=== PATIENT | male | born 1945 | race Caucasian/White ===

== ENCOUNTER 2020-01-04 08:01 | Outpatient (REF) | payer MEDICARE, MEDICAID, SELFPAY ==
[2020-01-04 09:13] LABS: Alanine Aminotransferase 32 U/L (0-40); Albumin Level 4.5 g/dL (3.5-5.0); Alkaline Phosphatase 83 U/L (39-117); Anion Gap 12 (12-20); Aspartate Amino Transferase 19 U/L (5-37); Bilirubin Total 0.7 mg/dL (0.0-1.0); Blood Urea Nitrogen 20 mg/dL (9-16); Calcium 9.7 mg/dL (8.4-10.2); Carbon Dioxide 28 mmol/L (22-29); Chloride 101 mmol/L (96-108); Cholesterol 197 mg/dL; Estimated Glomerular Filt Rate > 60; Glucose Fasting 108 mg/dL (60-99); HDL Cholesterol 46 mg/dL; LDL Cholesterol Calculated 119 mg/dl; Potassium 4.4 mmol/l (3.3-5.1); Sodium 137 mmol/L (135-145); Total Protein 7.4 g/dL (6.5-8.0); Triglycerides 162 mg/dL
== END 2020-01-04 08:02 | disposition home or self-care (01) ==
LOC: HO.LAB 08:01
PROVIDERS: PCP Internal Medicine; Visit Provider Internal Medicine
DX: E78.2 Mixed hyperlipidemia (principal)
CPT/HCPCS: 80053; 80061

== ENCOUNTER 2020-02-24 10:36 | Outpatient (REF) | payer MEDICARE, MEDICAID, SELFPAY ==
[2020-02-24 12:08] LABS: Albumin Level 4.6 g/dL (3.5-5.0); Alkaline Phosphatase 71 U/L (39-117); Anion Gap 13 (12-20); Bilirubin Total 0.7 mg/dL (0.0-1.0); Blood Urea Nitrogen 30 mg/dL (9-16); Calcium 9.5 mg/dL (8.4-10.2); Carbon Dioxide 28 mmol/L (22-29); Chloride 101 mmol/L (96-108); Cholesterol 168 mg/dL; Estimated Glomerular Filt Rate > 60; Glucose Fasting 97 mg/dL (60-99); HDL Cholesterol 41 mg/dL; LDL Cholesterol Calculated 97 mg/dl; Potassium 4.2 mmol/l (3.3-5.1); Sodium 138 mmol/L (135-145); Total Protein 7.4 g/dL (6.5-8.0); Triglycerides 154 mg/dL
[2020-02-24 12:28] LABS: Alanine Aminotransferase < 6 U/L (0-40); Aspartate Amino Transferase 14 U/L (5-37)
[2020-02-24 12:33] LABS: B Type Natriuretic Peptide 75 pg/mL (<100)
== END 2020-02-24 10:37 | disposition home or self-care (01) ==
LOC: HO.LAB 10:36
PROVIDERS: PCP Internal Medicine; Visit Provider Internal Medicine
DX: E78.00 Pure hypercholesterolemia, unspecified (principal); R60.0 Localized edema; I10 Essential (primary) hypertension; E78.2 Mixed hyperlipidemia; G20 Parkinson's disease
CPT/HCPCS: 80053; 80061; 83880

== ENCOUNTER → 2020-03-18 14:46 | Outpatient (BNVA) | payer MEDICARE, MEDICAID, SELFPAY | PROVIDERS: PCP Internal Medicine; Visit Provider Urology | DX: Z76.89 Persons encountering health services in other specified circumstances (principal) ==

== ENCOUNTER 2020-06-08 12:18 | Outpatient (REF) | payer MEDICARE, MEDICAID, SELFPAY ==
[2020-06-08 14:26] LABS: PSA,Total (Free>4and<10) < 0.05 ng/mL (0.00-4.00)
== END 2020-06-08 12:19 | disposition home or self-care (01) ==
LOC: HO.LAB 12:18
PROVIDERS: PCP Internal Medicine; Visit Provider Urology
DX: Z12.5 Encounter for screening for malignant neoplasm of prostate (principal); N13.8 Other obstructive and reflux uropathy; N40.1 Benign prostatic hyperplasia with lower urinary tract symptoms
CPT/HCPCS: 36415; 84153

== ENCOUNTER → 2020-06-11 09:23 | Outpatient (BNVA) | payer MEDICARE, MEDICAID, SELFPAY | PROVIDERS: PCP Internal Medicine; Visit Provider Urology | DX: C61 Malignant neoplasm of prostate (principal) | CPT/HCPCS: 51798; 81002; 99212 ==

== ENCOUNTER 2020-07-13 09:09 | Outpatient (REF) | payer MEDICARE, MEDICAID, SELFPAY ==
[2020-07-13 11:17] LABS: Alanine Aminotransferase 35 U/L (0-40); Albumin Level 4.6 g/dL (3.5-5.0); Alkaline Phosphatase 79 U/L (39-117); Anion Gap 14 (12-20); Aspartate Amino Transferase 17 U/L (5-37); Bilirubin Total 0.7 mg/dL (0.0-1.0); Blood Urea Nitrogen 22 mg/dL (9-16); Calcium 9.9 mg/dL (8.4-10.2); Carbon Dioxide 27 mmol/L (22-29); Chloride 103 mmol/L (96-108); Cholesterol 249 mg/dL; Estimated Glomerular Filt Rate > 60; Glucose Fasting 102 mg/dL (60-99); HDL Cholesterol 46 mg/dL; LDL Cholesterol Calculated 165 mg/dl; Potassium 4.1 mmol/L (3.3-5.1); Sodium 140 mmol/L (135-145); Total Protein 7.4 g/dL (6.5-8.0); Triglycerides 193 mg/dL
[2020-07-13 11:45] LABS: Prostate Specific Antigen < 0.05 ng/mL (<0.05-4.0)
== END 2020-07-13 09:10 | disposition home or self-care (01) ==
LOC: HO.LAB 09:09
PROVIDERS: Urology; PCP Internal Medicine; Visit Provider Internal Medicine
DX: Z12.5 Encounter for screening for malignant neoplasm of prostate (principal); C61 Malignant neoplasm of prostate; N13.8 Other obstructive and reflux uropathy; N40.1 Benign prostatic hyperplasia with lower urinary tract symptoms; E78.2 Mixed hyperlipidemia; E78.5 Hyperlipidemia, unspecified
CPT/HCPCS: 36415; 80053; 80061; 84153

== ENCOUNTER 2020-09-21 14:59 | Emergency (ER) | payer MEDICARE, MEDICAID, SELFPAY ==
--- NOTE | ~2020-09-21 | XR_ITS ---
EXAMINATION: XR CHEST CLINICAL INFORMATION: Weakness, cough COMPARISON: Chest x-ray on 02/13/2019 TECHNIQUE: 2 views of the chest were obtained. FINDINGS: The cardiomediastinal silhouette is normal. The lung parenchyma is normal. No areas of consolidation. No pleural effusions. Bones and soft tissues are unremarkable. XR/XR chest 2V IMPRESSION: No acute disease.
--- NOTE | ~2020-09-21 | CT_ITS ---
EXAMINATION: CT HEAD WITHOUT CONTRAST CLINICAL INFORMATION: Leg weakness COMPARISON: None TECHNIQUE: Contiguous axial imaging was performed from the skull base to vertex without intravenous administration of contrast. This CT examination was performed using dose optimization techniques as appropriate, variously including the following: *Automated exposure control *Adjustment of mA and/or kV according to patient size (this includes techniques or standardized protocols for targeted exams where dose is matched to indication/reason for exam; i.e. extremities or head) *Use of iterative reconstruction technique DLP: 729 mGy-cm FINDINGS: There is no evidence of acute intracranial hemorrhage or territorial infarction. No abnormal mass effect or midline shift is seen. Chavez to white matter differentiation is well preserved. No extra-axial fluid collections are identified. Mild cerebral volume loss. There is no abnormal attenuation within the brain parenchyma. The osseous structures and soft tissues are normal. Ethmoid sinus and bilateral maxillary sinus mucosal thickening. The mastoid air cells and remainder of the visualized portions of the paranasal sinuses are well aerated. CT/CT head/brain wo con IMPRESSION: No CT evidence of acute intracranial hemorrhage or edematous territorial infarction.. Further evaluation with CTA or MRI as clinically warranted. Ethmoid and maxillary sinus mucosal thickening.
[2020-09-21 16:23] VITALS: BP 185/94; PULSE 63; RESP 18; TEMP 36.2; O2SAT 97; BMI 35.8
--- NOTE | 2020-09-21 16:51 | ECG_ITS ---
Test Reason : WEAK Blood Pressure : / mmHG Vent. Rate : 071 BPM Atrial Rate : 071 BPM P-R Int : 178 ms QRS Dur : 096 ms QT Int : 414 ms P-R-T Axes : 105 024 038 degrees QTc Int : 449 ms Normal sinus rhythm Normal ECG No significant changes when compared with the previous EKG of 13 feb 2019 Referred By: Radha Byrd Electronically Signed By:VU ORTEGA
--- NOTE | 2020-09-21 16:53 | ED.WEAKNESS ---
HPI - Weakness General Chief complaint: Weakness Stated complaint: Weakness/low blood pressure Time Seen by Provider: 09/21/20 16:46 Source: patient Mode of arrival: ambulatory Limitations: no limitations History of Present Illness HPI Narrative: 75-year-old male with a past medical history of Parkinson's disease, hyperlipidemia, hypertension, GERD here with complaints of episode of weakness with associated diaphoresis which occurred at approximately 10:00 after waking from a nap. The patient tells me he woke up and felt weak all over but expectantly in his lower legs. He felt all over and got sweaty. He says this episode lasted approximately 15-20 minutes and then self-resolved. On my assessment he is now telling me he feels well and would like to be discharged home. He denies any associated chest pain, shortness of breath, dizziness, headache, abdominal pain with this episode. No recent illnesses. He did eat breakfast morning. Related Data Home Medications Medication Instructions Recorded Confirmed carbidopa 25 mg-levodopa 100 1 tab PO DAILY 01/08/20 07/21/20 mg-entacapone 200 mg tablet pramipexole 0.5 mg tablet 0.5 mg PO TID 03/18/20 07/21/20 trihexyphenidyl 2 mg tablet 2 mg PO TID 03/18/20 07/21/20 Previous Rx's Medication Instructions Recorded trazodone 50 mg tablet 50 mg PO BEDTIME PRN #90 tab 02/03/20 omeprazole 20 mg capsule,delayed 20 mg PO DAILY 90 Days #90 cap 03/03/20 release imipramine HCl 10 mg tablet 10 mg PO BID 90 Days #180 tab 06/11/20 atorvastatin 40 mg tablet 40 mg PO DAILY #90 tab 07/21/20 fenofibrate 54 mg tablet 54 mg PO DAILY 90 Days #90 tab 07/21/20 furosemide 20 mg tablet 20 mg PO DAILY 90 Days #90 tab 07/21/20 hydrochlorothiazide 25 mg tablet 25 mg PO DAILY #90 tab 07/21/20 lisinopril 20 mg tablet 20 mg PO DAILY 90 Days #90 tab 07/21/20 oxycodone 5 mg tablet 5 mg PO BID PRN 30 Days #60 tab 09/02/20 Allergies Allergy/AdvReac Type Severity Reaction Status Date / Time pravastatin Allergy Intermediate dry mouth Verified 07/21/20 09:37 Review of Systems Review of Systems: Yes all other systems are reviewed and are negative Constitutional: Constitutional: Reports no additional constitutional complaints, Denies body ache(s), Denies chills, Denies fever(s), Denies headache(s) and Reports weakness Eyes: Eyes: Reports no additional eye complaints and Denies change in vision ENT: Reports system reviewed and no additional complaints, except as documented, Denies dizziness, Denies headache(s), Denies nasal congestion, Denies nasal discharge and Denies neck pain Cardiovascular: Cardiovascular: Reports no additional cardiovascular complaints, Denies chest pain, Denies leg edema and Denies dyspnea Respiratory: Respiratory: Reports no additional respiratory complaints, Denies cough and Denies dyspnea Gastrointestinal: Gastrointestinal: Reports no additional gastrointestinal complaints, Denies abdominal pain, Denies diarrhea, Denies nausea and Denies vomiting Genitourinary: Genitourinary: Denies urinary incontinence Musculoskeletal: Musculoskeletal: Reports no additional musculoskeletal complaints, Denies back pain, Denies arthralgias, Denies joint swelling, Denies neck pain, Denies numbness and Denies tingling Integumentary/Breasts: Skin/Breast: Reports system reviewed and no additional complaints, except as docu and Denies rash Neurologic: Reports system reviewed and no additional complaints, except as documented, Denies Abnormal speech present, Denies dizziness, Denies headache(s), Denies numbness, Denies tingling and Reports weakness PMFSH Past Medical History Attestation statement: The following information was validated with the patient. Source: old records reviewed and nursing notes reviewed Medical History Essential hypertension GERD (gastroesophageal reflux disease) Lumbar degenerative disc disease Mixed hyperlipidemia Parkinsons disease Prostate cancer Urgency incontinence Surgical History History of basal cell carcinoma (BCC) excision History of prostatectomy Family History Family History Father No problems noted. Mother Diabetes Cancer Social History Social History Advance Directives: No Advance Directives Information Provided: No Physical Exam Vital Signs: Vital Signs: Last Vital Signs Temp 97.1 F 07/05/21 16:23 Pulse 63 09/21/20 16:23 Resp 18 09/21/20 16:23 BP 185/94 H 09/21/20 16:23 Pulse Ox 97 09/21/20 16:23 Body Mass Index 35.8 Const: General: cooperative, healthy appearing, comfortable and no acute distress Orientation/consciousness: patient oriented x3 Limitations: no limitations HENMT: Head: Yes normal to inspection Ears: hearing grossly normal bilaterally General nose exam: Normal external nose present Face and sinus: Yes normal facial exam Mouth: Normal oral and palatal mucosa present Throat: Yes posterior oropharynx normal Eyes: General: appearance normal, both eyes and all related structures Pupils: Equal, round and reactive pupils present Neck: Neck: Yes normal visual inspection Chest: Chest palpation & inspection: normal inspection of the chest Resp: Effort & Inspection: normal respiratory effort Auscultation: clear to auscultation bilaterally Cardio: Rate: regular rate Rhythm: regular rhythm Peripheral pulses: Peripheral pulses 2+ throughout GI: Inspection: Yes normal to inspection Palpation (GI): Soft to palpation and nontender Auscultation: normal bowel sounds Back/Spine/Pelvis: Thoracic/Lumbar Spine: thoracic and lumbar spine normal to inspection Skin: General skin exam: no rashes or lesions noted Neuro: General: patient oriented x3, no focal motor deficits and normal sensation to monofilament Cranial nerves: Yes CN's II-XII intact bilaterally, Yes Equal, round and reactive pupils present, Yes Bilaterally intact EOM present, Yes Nystagmus not present, Yes Normal facial strength present, Yes Midline tongue present and Yes Normal gag reflex present Cognition (Neuro): normal cognition Speech: No Abnormal speech present Gait exam (Neuro): Normal gait present Motor exam (neuro): 5/5 motor strength present throughout Sensory Exam: Normal double simultaneous stimulation for sensation Deep tendon reflexes (DTR's): Right patellar reflex intensity grade: 2+ and Left patellar reflex intensity grade: 2+ Extrem: General: Yes normal to inspection Course Course Course Narrative: 75-year-old male here with complaints of episode of generalized weakness with associated diaphoresis approximately 8 hours ago which has since resolved. No other associated symptoms. Exam is benign. Hemodynamically stable with the exception of some mild hypertension. Will check labs, CXR, EKG, CT head 1849- Labs unremarkable. UA negative. Chest x-ray and CT head negative. EKG shows no ischemic changes. Patient is completely asymptomatic since being here in the emergency department. He is feeling well, tolerating p.o. when requesting discharge home. Reviewed worrisome signs and symptoms of when to return to the emergency department. Comfortable discharge home. MDM - Weakness Differential Diagnosis Differential diagnosis: Likely UTI, anemia, hypoglycemia, hypothyroidism, sepsis and dehydration Medical Records Attestation: I reviewed the patient's medical records. Lab Data Attestation: I reviewed the patient's lab results. Result diagrams: 09/21/20 17:11 09/21/20 17:11 Labs: Lab Results 09/21/20 09/21/20 09/21/20 Range/Units 17:08 17:11 17:11 WBC 8.1 (4.8-10.8) X10*3/uL RBC 4.62 (4.60-5.80) X10*6/uL Hgb 14.2 (14.0-18.0) g/dl Hct 41.5 L (42-52) % MCV 89.8 (80-98) fL MCH 30.7 (27.0-33.0) pg MCHC 34.2 (31.0-36.0) g/dl RDW 13.6 (11.0-16.0) % Plt Count 167 (160-400) X10*3/uL MPV 11.3 (9.4-12.4) fL Immature Gran % (Auto) 0.9 H (0.0-0.4) % Neut % (Auto) 59.7 (45-73) % Lymph % (Auto) 25.1 (20-40) % [place] % (Auto) 9.3 (2-11) % Eos % (Auto) 4.8 H (0-4) % Baso % (Auto) 0.2 (0-2) % Lymph # (Auto) 2.0 (1.2-4.9) X10*3/uL [place] # (Auto) 0.8 (0.1-1.2) X10*3/uL Eos # (Auto) 0.4 (0.0-0.4) X10*3/uL Baso # (Auto) 0.0 (0.0-0.2) X10*3/uL Abs Immat Gran (auto) 0.07 H (0.00-0.03) X10*3/uL Absolute Neuts (auto) 4.9 (2.0-8.3) X10*3/uL Absolute Nucleated RBC 0.000 (0.0-0.012) X10*3/uL Nucleated RBC % (auto) 0.0 (0.0-0.2) /100WBC Sodium 137 (135-145) mmol/L Potassium 4.3 (3.3-5.1) mmol/L Chloride 101 (96-108) mmol/L Carbon Dioxide 25 (22-29) mmol/L Anion Gap 15 (12-20) BUN 19 H (9-16) mg/dL Creatinine 1.12 (0.5-1.4) mg/dL Estim Creat Clear Calc 65.2 Estimated GFR > 60 POC Glucose 101 (60-115) mg/dL Random Glucose 107 (60-115) mg/dL Calcium 9.7 (8.4-10.2) mg/dL Magnesium (1.6-2.6) mg/dL Total Bilirubin 0.6 (0.0-1.0) mg/dL Direct Bilirubin 0.2 (0.0-0.5) mg/dL AST 19 (5-37) U/L ALT 15 (0-40) U/L Alkaline Phosphatase 79 (39-117) U/L Troponin I High Sens (<3.5-35.0) ng/L B-Natriuretic Peptide (<100) pg/mL Total Protein 7.7 (6.5-8.0) g/dL Albumin 4.6 (3.5-5.0) g/dL Urine Color Urine Appearance Urine pH (5.0-8.0) Ur Specific [place] (1.005-1.025) Urine Protein (NEG-TRACE) MG/DL Urine Glucose (UA) (NEG) MG/DL Urine Ketones (NEG) MG/DL Urine Blood (NEG) Urine Nitrite (NEG) Ur Leukocyte Esterase (NEG) Urine RBC (0) /HPF Urine WBC (0-4) /HPF Ur Squamous Epith Cells /LPF Urine Bacteria /LPF 09/21/20 09/21/20 09/21/20 Range/Units 17:11 17:11 17:11 WBC (4.8-10.8) X10*3/uL RBC (4.60-5.80) X10*6/uL Hgb (14.0-18.0) g/dl Hct (42-52) % MCV (80-98) fL MCH (27.0-33.0) pg MCHC (31.0-36.0) g/dl RDW (11.0-16.0) % Plt Count (160-400) X10*3/uL MPV (9.4-12.4) fL Immature Gran % (Auto) (0.0-0.4) % Neut % (Auto) (45-73) % Lymph % (Auto) (20-40) % [place] % (Auto) (2-11) % Eos % (Auto) (0-4) % Baso % (Auto) (0-2) % Lymph # (Auto) (1.2-4.9) X10*3/uL [place] # (Auto) (0.1-1.2) X10*3/uL Eos # (Auto) (0.0-0.4) X10*3/uL Baso # (Auto) (0.0-0.2) X10*3/uL Abs Immat Gran (auto) (0.00-0.03) X10*3/uL Absolute Neuts (auto) (2.0-8.3) X10*3/uL Absolute Nucleated RBC (0.0-0.012) X10*3/uL Nucleated RBC % (auto) (0.0-0.2) /100WBC Sodium (135-145) mmol/L Potassium (3.3-5.1) mmol/L Chloride (96-108) mmol/L Carbon Dioxide (22-29) mmol/L Anion Gap (12-20) BUN (9-16) mg/dL Creatinine (0.5-1.4) mg/dL Estim Creat Clear Calc Estimated GFR POC Glucose (60-115) mg/dL Random Glucose (60-115) mg/dL Calcium (8.4-10.2) mg/dL Magnesium 1.9 (1.6-2.6) mg/dL Total Bilirubin (0.0-1.0) mg/dL Direct Bilirubin (0.0-0.5) mg/dL AST (5-37) U/L ALT (0-40) U/L Alkaline Phosphatase (39-117) U/L Troponin I High Sens 3.6 (<3.5-35.0) ng/L B-Natriuretic Peptide 124 H (<100) pg/mL Total Protein (6.5-8.0) g/dL Albumin (3.5-5.0) g/dL Urine Color Urine Appearance Urine pH (5.0-8.0) Ur Specific [place] (1.005-1.025) Urine Protein (NEG-TRACE) MG/DL Urine Glucose (UA) (NEG) MG/DL Urine Ketones (NEG) MG/DL Urine Blood (NEG) Urine Nitrite (NEG) Ur Leukocyte Esterase (NEG) Urine RBC (0) /HPF Urine WBC (0-4) /HPF Ur Squamous Epith Cells /LPF Urine Bacteria /LPF 09/21/20 Range/Units 18:17 WBC (4.8-10.8) X10*3/uL RBC (4.60-5.80) X10*6/uL Hgb (14.0-18.0) g/dl Hct (42-52) % MCV (80-98) fL MCH (27.0-33.0) pg MCHC (31.0-36.0) g/dl RDW (11.0-16.0) % Plt Count (160-400) X10*3/uL MPV (9.4-12.4) fL Immature Gran % (Auto) (0.0-0.4) % Neut % (Auto) (45-73) % Lymph % (Auto) (20-40) % [place] % (Auto) (2-11) % Eos % (Auto) (0-4) % Baso % (Auto) (0-2) % Lymph # (Auto) (1.2-4.9) X10*3/uL [place] # (Auto) (0.1-1.2) X10*3/uL Eos # (Auto) (0.0-0.4) X10*3/uL Baso # (Auto) (0.0-0.2) X10*3/uL Abs Immat Gran (auto) (0.00-0.03) X10*3/uL Absolute Neuts (auto) (2.0-8.3) X10*3/uL Absolute Nucleated RBC (0.0-0.012) X10*3/uL Nucleated RBC % (auto) (0.0-0.2) /100WBC Sodium (135-145) mmol/L Potassium (3.3-5.1) mmol/L Chloride (96-108) mmol/L Carbon Dioxide (22-29) mmol/L Anion Gap (12-20) BUN (9-16) mg/dL Creatinine (0.5-1.4) mg/dL Estim Creat Clear Calc Estimated GFR POC Glucose (60-115) mg/dL Random Glucose (60-115) mg/dL Calcium (8.4-10.2) mg/dL Magnesium (1.6-2.6) mg/dL Total Bilirubin (0.0-1.0) mg/dL Direct Bilirubin (0.0-0.5) mg/dL AST (5-37) U/L ALT (0-40) U/L Alkaline Phosphatase (39-117) U/L Troponin I High Sens (<3.5-35.0) ng/L B-Natriuretic Peptide (<100) pg/mL Total Protein (6.5-8.0) g/dL Albumin (3.5-5.0) g/dL Urine Color YELLOW Urine Appearance CLEAR Urine pH 6.0 (5.0-8.0) Ur Specific [place] <= 1.005 (1.005-1.025) Urine Protein NEG (NEG-TRACE) MG/DL Urine Glucose (UA) NEG (NEG) MG/DL Urine Ketones NEG (NEG) MG/DL Urine Blood TRACE (NEG) Urine Nitrite NEG (NEG) Ur Leukocyte Esterase NEG (NEG) Urine RBC 1-4 (0) /HPF Urine WBC 0-2 (0-4) /HPF Ur Squamous Epith Cells NONE /LPF Urine Bacteria NONE /LPF Imaging Data Chest x-ray: Attestation: I personally reviewed and interpreted this imaging study as follows: Radiologist's impression: EXAMINATION: XR CHEST CLINICAL INFORMATION: Weakness, cough COMPARISON: Chest x-ray on 02/13/2019 TECHNIQUE: 2 views of the chest were obtained. FINDINGS: The cardiomediastinal silhouette is normal. The lung parenchyma is normal. No areas of consolidation. No pleural effusions. Bones and soft tissues are unremarkable. XR/XR chest 2V IMPRESSION: No acute disease. CT scan - head: Attestation: I personally reviewed and interpreted this imaging study as follows: Radiologist's impression: INDINGS: There is no evidence of acute intracranial hemorrhage or territorial infarction. No abnormal mass effect or midline shift is seen. Chavez to white matter differentiation is well preserved. No extra-axial fluid collections are identified. Mild cerebral volume loss. There is no abnormal attenuation within the brain parenchyma. The osseous structures and soft tissues are normal. Ethmoid sinus and bilateral maxillary sinus mucosal thickening. The mastoid air cells and remainder of the visualized portions of the paranasal sinuses are well aerated. CT/CT head/brain wo con IMPRESSION: No CT evidence of acute intracranial hemorrhage or edematous territorial infarction.. Further evaluation with CTA or MRI as clinically warranted. Ethmoid and maxillary sinus mucosal thickening. ECG Data Attestation: I personally reviewed and interpreted this ECG as follows: ECG interpretation date: 09/21/20 ECG interpretation time: 17:02 Interpretation: Normal sinus rhythm with a rate of 71, normal SC, normal QRS Discharge Plan Discharge Clinical Impression: Weakness Patient Disposition: Home, Self-Care Instructions: Weakness (ED) Additional Instructions: your lab work, x-ray, CT scan and EKG all looked normal today eat small frequent meals throughout the day Prescriptions: No Action trazodone 50 mg tablet 50 mg PO BEDTIME PRN (Reason: insomnia) Qty: 90 RF: 1 omeprazole 20 mg capsule,delayed release(DR/EC) 20 mg PO DAILY 90 Days Qty: 90 RF: 3 oxycodone 5 mg tablet 5 mg PO BID PRN (Reason: pain) 30 Days Qty: 60 RF: 0 tusikgubl-pmwxcrjk-bwhywhwsku 25-100-200 mg tablet 1 tab PO DAILY RF: 0 furosemide 20 mg tablet 20 mg PO DAILY 90 Days Qty: 90 RF: 2 lisinopril 20 mg tablet 20 mg PO DAILY 90 Days Qty: 90 RF: 1 hydrochlorothiazide 25 mg tablet 25 mg PO DAILY Qty: 90 RF: 1 atorvastatin 40 mg tablet 40 mg PO DAILY Qty: 90 RF: 2 fenofibrate 54 mg tablet 54 mg PO DAILY 90 Days Qty: 90 RF: 1 pramipexole 0.5 mg tablet 0.5 mg PO TID RF: 0 trihexyphenidyl 2 mg tablet 2 mg PO TID RF: 0 imipramine HCl 10 mg tablet 10 mg PO BID 90 Days Qty: 180 RF: 3 Referrals: Susy Sylvester MD [Primary Care Provider] - 2 days Print Language: Malaysian
[2020-09-21 17:11] LABS: Glucose, Whole Blood 101 mg/dL (60-115)
[2020-09-21 17:17] LABS: MANUAL DIFF FLAG NO
[2020-09-21 17:18] LABS: Basophils Percent Auto 0.2 % (0-2); Eosinophils Absolute Auto 0.4 X10*3/uL (0.0-0.4); Eosinophils Percent Auto 4.8 % (0-4); Hematocrit 41.5 % (42-52); Hemoglobin 14.2 g/dl (14.0-18.0); Imm Gran Abs Auto 0.07 X10*3/uL (0.00-0.03); Imm Gran Pct Auto 0.9 % (0.0-0.4); Lymphocytes Percent Auto 25.1 % (20-40); Mean Corpuscular HGB Conc 34.2 g/dl (31.0-36.0); Mean Corpuscular Hemoglobin 30.7 pg (27.0-33.0); Mean Corpuscular Volume 89.8 fL (80-98); Mean Platelet Volume 11.3 fL (9.4-12.4); Monocytes Absolute Auto 0.8 X10*3/uL (0.1-1.2); Monocytes Percent Auto 9.3 % (2-11); Neutrophils Absolute Auto 4.9 X10*3/uL (2.0-8.3); Neutrophils Percent Auto 59.7 % (45-73); Platelet Count 167 X10*3/uL (160-400); Red Blood Count 4.62 X10*6/uL (4.60-5.80); Red Cell Distribution Width 13.6 % (11.0-16.0); White Blood Count 8.1 X10*3/uL (4.8-10.8)
[2020-09-21 17:39] LABS: Magnesium 1.9 mg/dL (1.6-2.6)
[2020-09-21 17:41] LABS: Alanine Aminotransferase 15 U/L (0-40); Albumin Level 4.6 g/dL (3.5-5.0); Alkaline Phosphatase 79 U/L (39-117); Anion Gap 15 (12-20); Aspartate Amino Transferase 19 U/L (5-37); Bilirubin Direct 0.2 mg/dL (0.0-0.5); Bilirubin Total 0.6 mg/dL (0.0-1.0); Blood Urea Nitrogen 19 mg/dL (9-16); Calcium 9.7 mg/dL (8.4-10.2); Carbon Dioxide 25 mmol/L (22-29); Chloride 101 mmol/L (96-108); Creatinine Clr Calc Pharmacy 65.2; Estimated Glomerular Filt Rate > 60; Glucose Random 107 mg/dL (60-115); Potassium 4.3 mmol/L (3.3-5.1); Sodium 137 mmol/L (135-145); Total Protein 7.7 g/dL (6.5-8.0)
[2020-09-21 17:44] LABS: B Type Natriuretic Peptide 124 pg/mL (<100); Troponin-I High Sensitivity 3.6 ng/L (<3.5-35.0)
[2020-09-21 18:23] LABS: Glucose Urine UA NEG (NEG); Leukocyte Esterase Urine NEG (NEG); Nitrite Urine NEG (NEG); Specific Gravity - Urine <= 1.005 (1.005-1.025); Urine Blood TRACE (NEG); Urine Ketones NEG (NEG); Urine Protein NEG (NEG-TRACE)
[2020-09-21 18:29] LABS: Appearance Urine CLEAR; Color Urine YELLOW
[2020-09-21 18:35] LABS: WBC Urine 0-2 /HPF (0-4)
--- NOTE | 2020-09-21 19:05 | PC.NURSE ---
pt feels ready for discharge, vitals stable denies pain or dizziness. pt alert and oriented . steady gait.
== END 2020-09-21 19:07 | disposition home or self-care (01) ==
PROVIDERS: Nurse Practitioner Family; Emergency Provider Emergency Medicine; PCP Internal Medicine
DX: R53.1 Weakness (principal); I10 Essential (primary) hypertension; G20 Parkinson's disease; Z79.899 Other long term (current) drug therapy
CPT/HCPCS: 36415; 70450; 71046; 80048; 80076; 81001; 82947; 83735; 83880; 84484; 85025; 93005; 99284

== ENCOUNTER 2020-11-20 09:15 | Outpatient (REF) | payer MEDICARE, MEDICAID, SELFPAY ==
[2020-11-20 09:58] LABS: MANUAL DIFF FLAG NO
[2020-11-20 10:06] LABS: Basophils Percent Auto 0.3 % (0-2); Eosinophils Absolute Auto 0.5 X10*3/uL (0.0-0.4); Eosinophils Percent Auto 7.8 % (0-4); Hematocrit 39.1 % (42-52); Hemoglobin 13.4 g/dl (14.0-18.0); Imm Gran Abs Auto 0.05 X10*3/uL (0.00-0.03); Imm Gran Pct Auto 0.8 % (0.0-0.4); Lymphocytes Absolute Auto 1.7 X10*3/uL (1.2-4.9); Lymphocytes Percent Auto 28.1 % (20-40); Mean Corpuscular HGB Conc 34.3 g/dl (31.0-36.0); Mean Corpuscular Hemoglobin 31.4 pg (27.0-33.0); Mean Corpuscular Volume 91.6 fL (80-98); Mean Platelet Volume 12.3 fL (9.4-12.4); Monocytes Absolute Auto 0.6 X10*3/uL (0.1-1.2); Monocytes Percent Auto 9.1 % (2-11); Neutrophils Absolute Auto 3.2 X10*3/uL (2.0-8.3); Neutrophils Percent Auto 53.9 % (45-73); Platelet Count 165 X10*3/uL (160-400); Red Blood Count 4.27 X10*6/uL (4.60-5.80); Red Cell Distribution Width 13.5 % (11.0-16.0)
[2020-11-20 10:34] LABS: Alanine Aminotransferase 8 U/L (0-40); Albumin Level 4.6 g/dL (3.5-5.0); Alkaline Phosphatase 81 U/L (39-117); Anion Gap 14 (12-20); Aspartate Amino Transferase 22 U/L (5-37); Bilirubin Total 0.4 mg/dL (0.0-1.0); Blood Urea Nitrogen 27 mg/dL (9-16); Calcium 9.9 mg/dL (8.4-10.2); Carbon Dioxide 27 mmol/L (22-29); Chloride 101 mmol/L (96-108); Cholesterol 181 mg/dL; Estimated Glomerular Filt Rate 47; Glucose Fasting 112 mg/dL (60-99); HDL Cholesterol 37 mg/dL; LDL Cholesterol Calculated 109 mg/dl; Potassium 4.5 mmol/L (3.3-5.1); Sodium 137 mmol/L (135-145); Total Protein 7.4 g/dL (6.5-8.0); Triglycerides 178 mg/dL
[2020-11-26 19:46] LABS: Vitamin D 25-OH, D2 <4 ng/mL; Vitamin D 25-OH, D3 38 ng/mL; Vitamin D 25-OH, Total 38 ng/mL (30-100)
== END 2020-11-20 09:16 | disposition home or self-care (01) ==
LOC: HO.LAB 09:15
PROVIDERS: PCP Internal Medicine; Visit Provider Internal Medicine
DX: E78.5 Hyperlipidemia, unspecified (principal); E55.9 Vitamin D deficiency, unspecified; I10 Essential (primary) hypertension; D64.9 Anemia, unspecified
CPT/HCPCS: 36415; 80053; 80061; 82306; 85025

== ENCOUNTER → 2020-12-29 08:27 | Outpatient (REF) | payer MEDICARE, MEDICAID, SELFPAY ==
--- NOTE | 2020-12-29 08:32 | CA_ITS ---
Transthoracic Echocardiogram Patient (Last, First, Middle): Onru Yarbrough, Gender: Male Date of : 1945 Age: 75 Procedure Date: 12/29/2020 Procedure Type: Transthoracic Echocardiogram Location: OP Height: 172.72 cm Weight: 108.86 kg BSA: 2.21 m2 Heart Rate: bpm BP: 118 / 79 mmHg Bone Char Kiln Tender: SARAH Referring MD: Susy Harrington MD [employer] Specialist: Hugo Davison MD Symptoms: R60.0 - Localized edema Study Quality: Fair ECG Rhythm: Sinus Conclusions: - 1. Normal LV systolic and diastolic function 2. Normal cardiac valvular Doppler 3. Mildly dilated ascending aorta with mild atherosclerotic changes 4. No gross pericardial effusion 5. Normal RV systolic pressure Findings Left Ventricle Normal left ventricular size, thickness, and systolic function. The visually estimated ejection fraction is between 60-65%. Spectral Doppler is indicative of a normal filling pattern. Right Ventricle Normal right ventricular cavity size and systolic function. Atria Both atria are normal in size. There is no evidence of interatrial shunt. Aortic Valve The aortic valve structure and function is likely normal. There is no aortic valve stenosis. There is no aortic valve regurgitation. Mitral Valve There is mild anterior and posterior mitral leaflet thickening. There is trace mitral valve regurgitation. There is no mitral valve stenosis. Pulmonic Valve The pulmonic valve was not well visualized. Tricuspid Valve Likely normal tricuspid valve structure and function. There is trace tricuspid valve regurgitation. The right ventricular systolic pressure is normal. The right ventricular systolic pressure is 21 mmHg. Normal right atrial pressure. There is no evidence of pulmonary hypertension. Great Vessels The pulmonary artery was not well visualized. There is mild dilatation of the ascending aorta measuring 3.90 cm. Small plaque is seen in the ascending aorta. Venous The inferior vena cava is normal in size and collapses greater than 50% with inspiration. Pericardium/Pleural There is no evidence of pericardial effusion. Prior Study Comparison No significant change compared to prior study dated: 07/06/2017. Measurements 2D Linear Measurements IVSd: 0.94 0.6-0.9/0.6-1.0 cm LVIDd: 5.30 3.9-5.3/4.2-5.9 cm LVIDd Index: 2.40 2.4-3.2/2.2-3.1 cm/m2 LVIDs: 3.35 2.0-3.6 cm LVPWd: 1.03 0.7-1.1 cm Ao Root: 3.20 2.1-3.5 cm LA Diam: 2.50 2.7-3.8/3.0-4.0 cm LAIDs Index: 1.13 1.5-2.3 cm/m2 LV Mass: 244.94 67-162/88-224 g LV Mass Index: 110.83 43-95/49-115 g/m2 LVOT Diam: 2.00 3.0+(-)1.3 cm 2D Systolic Function EF 4C: 56.10 >55% EF 2C: 66.60 >55% EF BiP: 62.10 >55% Mitral Valve MV Pk E: 0.67 MV PK A: 0.46 MV Decel Time: 147.00 E/A: 1.50 E'Lateral: 8.38 E'Medial: 5.87 E/E' Med: 11.50 E/E' Lat: 8.00 PHT: 43.00 MVA PHT: 5.12 Decel Otoe: 4.59 Aortic Valve AoV Pk Donnie: 1.44 AoV Pk Grad: 8.00 LVOT LVOT Pk Donnie: 0.99 LVOT Mn Donnie: 0.59 LVOT VTI: 0.19 LVOT Pk Grad: 4.00 LVOT Mn Grad: 2.00 LVOT Diam: 2.00 LVOT Area: 3.14 Diastolic Function MV Pk E: 0.67 MV Pk A: 0.46 E/A: 1.50 E'Medial: 5.87 E/E' Med: 11.50 E' Laterial: 8.38 E/E' Lat: 8.00 Right Ventricle TAPSE (mm): 1.94 Tricuspid Valve TR Pk Donnie: 2.13 TR Pk Grad: 18.00 RA Press: 3.00 RVSP: 21.00 Great Vessels Aorta Ao Root-2D: 3.20 2.0-3.7 cm Ao Asc: 3.90 2.1-3.4 cm Updated in Other Vendor System with Status of Final Hugo Davison MD electronically signed on 12/31/2020 8:57:51 AM with status of Final
== END ==
LOC: HO.CARD 08:27
PROVIDERS: Visit Provider Internal Medicine
DX: R60.0 Localized edema (principal)
CPT/HCPCS: 93306

== ENCOUNTER 2021-03-23 07:28 | Outpatient (REF) | payer MEDICARE, MEDICAID, SELFPAY ==
[2021-03-23 08:35] LABS: Alanine Aminotransferase 31 U/L (0-40); Albumin Level 4.5 g/dL (3.5-5.0); Alkaline Phosphatase 75 U/L (39-117); Anion Gap 12 (12-20); Aspartate Amino Transferase 17 U/L (5-37); Bilirubin Total 0.5 mg/dL (0.0-1.0); Blood Urea Nitrogen 30 mg/dL (9-16); Calcium 9.9 mg/dL (8.4-10.2); Carbon Dioxide 27 mmol/L (22-29); Chloride 107 mmol/L (96-108); Estimated Glomerular Filt Rate 59; Glucose Random 121 mg/dL (60-115); Potassium 4.3 mmol/L (3.3-5.1); Sodium 142 mmol/L (135-145); Total Protein 7.4 g/dL (6.5-8.0)
[2021-03-23 08:58] LABS: TSH reflex Free T4 2.92 uIU/mL (0.32-4.0)
== END 2021-03-23 07:29 | disposition home or self-care (01) ==
LOC: HO.LAB 07:28
PROVIDERS: Absent Provider Internal Medicine; PCP Internal Medicine; Visit Provider Nurse Practitioner Family
DX: R60.0 Localized edema (principal)
CPT/HCPCS: 36415; 80053; 84443

== ENCOUNTER 2021-05-18 14:55 | Outpatient (REF) | payer MEDICARE, MEDICAID, SELFPAY ==
[2021-05-18 16:00] LABS: Estimated Average Glucose 137 mg/dL; Hemoglobin A1c % 6.4 %
[2021-05-18 16:35] LABS: Prostate Specific Antigen < 0.05 ng/mL (<0.05-4.0)
== END 2021-05-18 14:56 | disposition home or self-care (01) ==
LOC: HO.LAB 14:55
PROVIDERS: Nurse Practitioner Family; PCP Internal Medicine; Visit Provider Urology
DX: Z13.1 Encounter for screening for diabetes mellitus (principal); Z12.5 Encounter for screening for malignant neoplasm of prostate; C61 Malignant neoplasm of prostate
CPT/HCPCS: 36415; 83036; 84153

== ENCOUNTER → 2021-06-07 08:21 | Outpatient (BNVA) | payer MEDICARE, MEDICAID, SELFPAY | PROVIDERS: PCP Internal Medicine; Visit Provider Anesthesiology | DX: M54.50 Low back pain, unspecified (principal); M47.816 Spondylosis without myelopathy or radiculopathy, lumbar region; M46.1 Sacroiliitis, not elsewhere classified; M53.3 Sacrococcygeal disorders, not elsewhere classified; G89.4 Chronic pain syndrome | CPT/HCPCS: 99202 ==

== ENCOUNTER → 2021-06-15 15:28 | Outpatient (BNVA) | payer MEDICARE, MEDICAID, SELFPAY | PROVIDERS: PCP Internal Medicine; Visit Provider Urology | DX: C61 Malignant neoplasm of prostate (principal); N32.81 Overactive bladder | CPT/HCPCS: 99212 ==

== ENCOUNTER 2021-06-29 06:15 | Outpatient (REF) | payer MEDICARE, MEDICAID, SELFPAY ==
--- NOTE | ~2021-06-29 | FL_ITS ---
EXAMINATION: XR FLUOROSCOPY WITH IMAGES CLINICAL INFORMATION: M46.1 - Sacroiliitis, not elsewhere classified. COMPARISON: None. TECHNIQUE: Fluoroscopy performed by Dr. Nile Askew. Fluoroscopy time: 0.1 minutes DAP: 2.96 Gycm2 Images: 1 FINDINGS: Spinal needle overlies the lower left SI joint. There is contrast in the periarticular soft tissues with probable early intra-articular contrast. No vasculature communication appreciated. FL/FL guidance in treatment room IMPRESSION: Fluoroscopy for pain management procedure.
== END 2021-06-29 06:16 | disposition home or self-care (01) ==
LOC: HO.RADIR 06:15
PROVIDERS: Visit Provider Anesthesiology
DX: M46.1 Sacroiliitis, not elsewhere classified (principal); M54.50 Low back pain, unspecified; M47.816 Spondylosis without myelopathy or radiculopathy, lumbar region; M53.3 Sacrococcygeal disorders, not elsewhere classified; G89.4 Chronic pain syndrome
CPT/HCPCS: 27096; Q9967

== ENCOUNTER → 2021-07-07 16:16 | Outpatient (BNVA) | payer MEDICARE, MEDICAID, SELFPAY | PROVIDERS: PCP Internal Medicine; Visit Provider Anesthesiology | DX: M54.50 Low back pain, unspecified (principal); M47.816 Spondylosis without myelopathy or radiculopathy, lumbar region; M46.1 Sacroiliitis, not elsewhere classified; M53.3 Sacrococcygeal disorders, not elsewhere classified; G89.4 Chronic pain syndrome | CPT/HCPCS: Q3014 ==

== ENCOUNTER 2021-07-31 07:48 | Outpatient (REF) | payer MEDICARE, MEDICAID, SELFPAY ==
--- NOTE | ~2021-07-31 | XR_ITS ---
EXAMINATION: XR PELVIS CLINICAL INFORMATION: Sacrococcygeal disorder. COMPARISON: None TECHNIQUE: Single frontal view of the pelvis obtained. FINDINGS: There is no radiographic evidence of acute fracture or dislocation. No osteolytic or osteoblastic lesions. 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 Adjacent pubic rami are intact. Surrounding soft tissue is unremarkable. 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
--- NOTE | ~2021-07-31 | XR_ITS ---
EXAMINATION: XR LUMBAR SPINE CLINICAL INFORMATION: Reason for Exam M47.816 - Spondylosis without myelopathy or radiculopathy... COMPARISON: None TECHNIQUE: Frontal lateral and coned-down L5-S1 frontal lateral, right and left obliques. FINDINGS: Five dln-rbz-ebashot lumbar vertebrae were identified maintaining normal height and alignments. Narrowing of intervertebral disc spaces suggest underlying degenerative disc disease. Paravertebral soft tissues are unremarkable. There are radiolucencies, most likely superimposed bowel gas.. No radiographic evidence of osteolytic or osteoblastic lesions. XR/XR lumbar spine 4V min IMPRESSION: Mild narrowing of disc height and developed anterior osteophytes especially at L2-L3 suggests underlying degenerative disc disease. Bone alignments are satisfactory. No fracture.
== END 2021-07-31 07:49 | disposition home or self-care (01) ==
LOC: HO.XRAY 07:48
PROVIDERS: PCP Internal Medicine; Visit Provider Anesthesiology
DX: M47.816 Spondylosis without myelopathy or radiculopathy, lumbar region (principal); M53.3 Sacrococcygeal disorders, not elsewhere classified
CPT/HCPCS: 72110; 72170

== ENCOUNTER 2021-08-04 07:05 | Outpatient (RCR) | payer MEDICARE, MEDICAID, SELFPAY ==
[2021-08-04 11:19] VITALS: BP 149/74; PULSE 68; O2SAT 98
--- NOTE | 2021-08-04 12:03 | MHC.PT.EP ---
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 Pt RESIDES ALONE AND HAS VEGETABLE THINNER ASSIST 37.5 HRS/ WK. HE ENJOYS WATCHING TV AND GOING FOR SHORT WALKS- INTERMITTENTLY AMB W A CANE(PRESENTED TODAY W/O AD). Pt HAS DECR ROM IN DEJUAN ANKLES, KNEES, HIPS AND TRUNK-DECR POSTURAL AWARENESS/ CREATING INCR TISSUE TENSION IN HIS POSTERIOR CHAIN. HE HAS WEAKNESS IN HIS LEs AND DEMON DECR TOLERANCE TO STATIC STANDING-HIS TUG TEST WAS 24 SECONDS (NO AD). FUNCTIONALLY, Pt HAS DECR GAIT ALEXANDER- HE REQ SEATED THER RESTS W GROCERY SHOPPING, DIFFIC W STANDING/ BENDING/LIFTING, AND DONNING/ DOFFING FOOTWEAR. 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 Frequency and Duration: The patient will be seen 2 x WK x 8 WKS Short Term Goals: *Pt AND HIS VEGETABLE THINNER DEMON IMPROVED POSITIONING AND MECHANICSIN BED/ SITTING, TRANSFERS IN 3 WKS *IMPROVE AROM IN DEJUAN ANKLES , HIPS, LEs IN 2 WKS *Pt'S LBP DECR TO 2-3/10 IN 3 WKS Air Press Operator Goals: *Pt CARRIEON IMPROVED GAIT MECHANICS FOR FITNESS WALKING ON LEVEL GROUND AND STAIR MGMT IN 8 WKS *Pt AND HIS VEGETABLE THINNER DEMON INDEP W PROGRESSIVE HEP IN 8 WKS Treatment Plan: Modalities to reduce pain, spasms and effusion. Manual therapy to restore motion and function. Therapeutic exercise to improve strength and flexibility. Neuromuscular re-education for posture and balance. Therapeutic activities to return to functional activities of daily living. Electronically signed by: Ingris Bev,PT Please sign and return to therapist. Thank you for your referral.
== END 2021-10-05 08:47 | disposition home or self-care (01) ==
LOC: HO.PT 07:05
PROVIDERS: PCP Internal Medicine; Visit Provider Anesthesiology
DX: M54.50 Low back pain, unspecified (principal)
CPT/HCPCS: 97110; 97162

== ENCOUNTER 2021-08-10 08:55 | Outpatient (REF) | payer MEDICARE, MEDICAID, SELFPAY ==
--- NOTE | ~2021-08-10 | XR_ITS ---
EXAMINATION: XR KNEE, LEFT CLINICAL INFORMATION: Pain COMPARISON: None TECHNIQUE: 2 views of the left knee. FINDINGS: Bone alignment is normal. No fracture or dislocation is seen. There is degenerative meniscal calcification. There are some osteophytes at the patellofemoral joint. There is a small joint effusion. XR/XR knee LT 2V IMPRESSION: Degenerative changes.
[2021-08-10 09:31] LABS: MANUAL DIFF FLAG NO
[2021-08-10 09:51] LABS: Basophils Percent Auto 0.1 % (0-2); Eosinophils Absolute Auto 0.4 X10*3/uL (0.0-0.4); Eosinophils Percent Auto 5.5 % (0-4); Hematocrit 39.5 % (42.0-52.0); Hemoglobin 13.2 g/dl (14.0-18.0); Imm Gran Abs Auto 0.04 X10*3/uL (0.00-0.03); Imm Gran Pct Auto 0.6 % (0.0-0.4); Lymphocytes Absolute Auto 1.9 X10*3/uL (1.2-4.9); Mean Corpuscular HGB Conc 33.4 g/dl (31.0-36.0); Mean Corpuscular Hemoglobin 30.4 pg (27.0-33.0); Mean Platelet Volume 12.3 fL (9.4-12.4); Monocytes Absolute Auto 0.5 X10*3/uL (0.1-1.2); Monocytes Percent Auto 7.7 % (2-11); Neutrophils Absolute Auto 4.1 x10*3/uL (2.0-8.3); Neutrophils Percent Auto 59.1 % (45-73); Platelet Count 179 X10*3/uL (160-400); Red Blood Count 4.34 X10*6/uL (4.60-5.80); Red Cell Distribution Width 13.4 % (11.0-16.0)
[2021-08-10 10:40] LABS: Alanine Aminotransferase 10 U/L (0-40); Albumin Level 4.2 g/dL (3.5-5.0); Alkaline Phosphatase 68 U/L (39-117); Anion Gap 14 (12-20); Aspartate Amino Transferase 27 U/L (5-37); Bilirubin Total 0.6 mg/dL (0.0-1.0); Blood Urea Nitrogen 19 mg/dL (9-16); Calcium 9.9 mg/dL (8.4-10.2); Carbon Dioxide 23 mmol/L (22-29); Chloride 108 mmol/L (96-108); Cholesterol 170 mg/dL; Estimated Glomerular Filt Rate 58; Glucose Fasting 114 mg/dL (60-99); HDL Cholesterol 35 mg/dL; Iron 82 mcg/dL (45-160); LDL Cholesterol Calculated 108 mg/dl; Percent Iron Saturation 25 % (15-50); Potassium 4.6 mmol/L (3.3-5.1); Sodium 140 mmol/L (135-145); Total Iron Binding Capacity 322 mcg/dL (228-428); Total Protein 7.4 g/dL (6.5-8.0); Triglycerides 138 mg/dL; Unsaturated Iron Binding 240 ug/dL
== END 2021-08-10 08:56 | disposition home or self-care (01) ==
LOC: HO.LAB 08:55
PROVIDERS: PCP Internal Medicine; Visit Provider Internal Medicine
DX: M25.562 Pain in left knee (principal); E78.5 Hyperlipidemia, unspecified; M46.1 Sacroiliitis, not elsewhere classified; D64.9 Anemia, unspecified
CPT/HCPCS: 36415; 73560; 80053; 80061; 83540; 85025

== ENCOUNTER → 2021-08-17 09:00 | Outpatient (BNVA) | payer MEDICARE, MEDICAID, SELFPAY | PROVIDERS: PCP Internal Medicine; Visit Provider Urology | DX: C61 Malignant neoplasm of prostate (principal) | CPT/HCPCS: Q3014 ==

== ENCOUNTER → 2021-10-05 14:47 | Outpatient (BNVA) | payer MEDICARE, MEDICAID, SELFPAY | PROVIDERS: PCP Internal Medicine; Visit Provider Physician Assistant | DX: M17.12 Unilateral primary osteoarthritis, left knee (principal) | CPT/HCPCS: 20610; 99212; J1040 ==

== ENCOUNTER → 2022-03-24 09:38 | Outpatient (BNVA) | payer MEDICARE, MEDICAID, SELFPAY | PROVIDERS: PCP Internal Medicine; Visit Provider Internal Medicine Gastroenterology | DX: K21.9 Gastro-esophageal reflux disease without esophagitis (principal); G20 Parkinson's disease; I10 Essential (primary) hypertension; E78.5 Hyperlipidemia, unspecified; Z90.79 Acquired absence of other genital organ(s); Z12.11 Encounter for screening for malignant neoplasm of colon | CPT/HCPCS: 99202 ==

== ENCOUNTER 2022-03-31 06:38 | Outpatient (REF) | payer MEDICARE, MEDICAID, SELFPAY ==
[2022-03-31 06:44] LABS: MANUAL DIFF FLAG NO
[2022-03-31 07:42] LABS: Basophils Percent Auto 0.4 % (0-2); Eosinophils Absolute Auto 0.4 X10*3/uL (0.0-0.4); Eosinophils Percent Auto 6.2 % (0-4); Hematocrit 38.4 % (42.0-52.0); Hemoglobin 12.5 g/dl (14.0-18.0); Imm Gran Abs Auto 0.03 X10*3/uL (0.00-0.03); Imm Gran Pct Auto 0.4 % (0.0-0.4); Lymphocytes Absolute Auto 2.1 X10*3/uL (1.2-4.9); Lymphocytes Percent Auto 29.8 % (20-40); Mean Corpuscular HGB Conc 32.6 g/dl (31.0-36.0); Mean Corpuscular Hemoglobin 31.2 pg (27.0-33.0); Mean Corpuscular Volume 95.8 fL (80.0-98.0); Mean Platelet Volume 12.3 fL (9.4-12.4); Monocytes Absolute Auto 0.7 X10*3/uL (0.1-1.2); Monocytes Percent Auto 9.7 % (2-11); Neutrophils Absolute Auto 3.8 x10*3/uL (2.0-8.3); Neutrophils Percent Auto 53.5 % (45-73); Platelet Count 219 X10*3/uL (160-400); Red Blood Count 4.01 X10*6/uL (4.60-5.80); Red Cell Distribution Width 13.2 % (11.0-16.0); White Blood Count 7.2 X10*3/uL (4.8-10.8)
[2022-03-31 08:20] LABS: Alanine Aminotransferase 9 U/L (0-40); Albumin Level 4.3 g/dL (3.5-5.0); Alkaline Phosphatase 129 U/L (39-117); Anion Gap 16 (12-20); Aspartate Amino Transferase 40 U/L (5-37); Bilirubin Total 0.3 mg/dL (0.0-1.0); Blood Urea Nitrogen 31 mg/dL (9-16); Calcium 9.4 mg/dL (8.4-10.2); Carbon Dioxide 21 mmol/L (22-29); Chloride 107 mmol/L (96-108); Cholesterol 144 mg/dL; Estimated Glomerular Filt Rate 48; Glucose Fasting 117 mg/dL (60-99); HDL Cholesterol 34 mg/dL; Iron 78 mcg/dL (45-160); LDL Cholesterol Calculated 65 mg/dl; Percent Iron Saturation 29 % (15-50); Potassium 4.7 mmol/L (3.3-5.1); Sodium 139 mmol/L (135-145); Total Iron Binding Capacity 270 mcg/dL (228-428); Total Protein 7.3 g/dL (6.5-8.0); Triglycerides 225 mg/dL; Unsaturated Iron Binding 192 ug/dL
[2022-03-31 08:34] LABS: Vitamin D 25-OH Total 14.8 ng/mL (>30)
[2022-03-31 08:47] LABS: Folate 10.8 ng/mL (> or = 4.0); Vitamin B12 523 pg/mL (200-900)
[2022-03-31 08:48] LABS: Prostate Specific Antigen < 0.10 ng/mL (<0.05-4.0)
== END 2022-03-31 06:39 | disposition home or self-care (01) ==
LOC: HO.LAB 06:38
PROVIDERS: Absent Provider Urology; PCP Internal Medicine; Visit Provider Internal Medicine
DX: C61 Malignant neoplasm of prostate (principal); D64.9 Anemia, unspecified; E78.5 Hyperlipidemia, unspecified; M25.522 Pain in left elbow; E55.9 Vitamin D deficiency, unspecified; E53.8 Deficiency of other specified B group vitamins
CPT/HCPCS: 36415; 80053; 80061; 82306; 82607; 82746; 83540; 84153; 85025

== ENCOUNTER → 2022-05-19 11:19 | Outpatient (BNVA) | payer MEDICARE, MEDICAID, SELFPAY | PROVIDERS: PCP Internal Medicine; Visit Provider Urology | DX: G20 Parkinson's disease (principal); C61 Malignant neoplasm of prostate; N32.81 Overactive bladder | CPT/HCPCS: 99212 ==

== ENCOUNTER 2022-06-17 07:19 | Outpatient (REF) | payer MEDICARE, MEDICAID, SELFPAY ==
--- NOTE | ~2022-06-17 | US_ITS ---
EXAMINATION: US RETROPERITONEAL LIMITED (RENAL ONLY) CLINICAL INFORMATION: Chronic kidney disease. COMPARISON: None available. TECHNIQUE: Real-time imaging of the kidneys. FINDINGS: RIGHT KIDNEY: 11.7 x 4.9 x 4.8 cm (SAG x AP x TRV). The kidney is normal in size, contour, and echogenicity. Renal cortical thickness is normal. No renal calculi or hydronephrosis. Simple cyst in the lower pole measuring 5.4 cm and lateral mid pole measuring 0.6 cm, for which no imaging follow-up is indicated. LEFT KIDNEY: 11.5 x 5.3 x 4.2 cm (SAG x AP x TRV). The kidney is normal in size, contour, and echogenicity. Renal cortical thickness is normal. No calculi or focal parenchymal lesions. No hydronephrosis. US/US renal BI IMPRESSION: No acute sonographic abnormalities.
[2022-06-17 07:33] LABS: MANUAL DIFF FLAG NO
[2022-06-17 08:13] LABS: Basophils Percent Auto 0.5 % (0-2); Eosinophils Absolute Auto 0.3 X10*3/uL (0.0-0.4); Eosinophils Percent Auto 4.1 % (0-4); Hematocrit 41.3 % (42.0-52.0); Hemoglobin 13.9 g/dl (14.0-18.0); Imm Gran Abs Auto 0.01 X10*3/uL (0.00-0.03); Imm Gran Pct Auto 0.2 % (0.0-0.4); Lymphocytes Absolute Auto 1.4 X10*3/uL (1.2-4.9); Lymphocytes Percent Auto 21.7 % (20-40); Mean Corpuscular HGB Conc 33.7 g/dl (31.0-36.0); Mean Corpuscular Hemoglobin 31.2 pg (27.0-33.0); Mean Corpuscular Volume 92.8 fL (80.0-98.0); Mean Platelet Volume 12.3 fL (9.4-12.4); Monocytes Absolute Auto 0.5 X10*3/uL (0.1-1.2); Monocytes Percent Auto 8.6 % (2-11); Neutrophils Absolute Auto 4.1 x10*3/uL (2.0-8.3); Neutrophils Percent Auto 64.9 % (45-73); Platelet Count 188 X10*3/uL (160-400); Red Blood Count 4.45 X10*6/uL (4.60-5.80); White Blood Count 6.3 X10*3/uL (4.8-10.8)
[2022-06-17 08:19] LABS: Appearance Urine Clear; Color Urine Yellow; Glucose Urine UA Negative (Negative); Leukocyte Esterase Urine Negative (Negative); Nitrite Urine Negative (Negative); PH 6.5 (5.0-9.0); Urine Blood Negative (Negative); Urine Ketones Negative (Negative); Urine Protein Negative (Neg-Trace)
[2022-06-17 08:39] LABS: Creatinine Urine 130.61 mg/dL; Microalbum/Creatinine Ratio Ur 19.1 ug/mg cr; Total Protein Urine Random 10 mg/dL (<12)
[2022-06-17 08:45] LABS: Albumin Level 4.6 g/dL (3.5-5.0); Anion Gap 13 (12-20); Blood Urea Nitrogen 26 mg/dL (9-16); Calcium 9.8 mg/dL (8.4-10.2); Carbon Dioxide 27 mmol/L (22-29); Chloride 105 mmol/L (96-108); Estimated Glomerular Filt Rate > 60; Phosphorus 3.4 mg/dL (2.7-4.5); Potassium 4.6 mmol/L (3.3-5.1); Sodium 140 mmol/L (135-145)
[2022-06-17 08:59] LABS: Vitamin D 25-OH Total 28.5 ng/mL (>30)
[2022-06-20 15:39] LABS: Calcium (PTHI) 10.2 mg/dL (8.6-10.3); PTHI 26 pg/mL (16-77)
== END 2022-06-17 07:20 | disposition home or self-care (01) ==
LOC: HO.US 07:19
PROVIDERS: PCP Internal Medicine; Visit Provider Internal Medicine Nephrology
DX: I12.9 Hypertensive chronic kidney disease with stage 1 through stage 4 chronic kidney disease, or unspecified chronic kidney disease (principal); N18.31 Chronic kidney disease, stage 3a; R82.90 Unspecified abnormal findings in urine
CPT/HCPCS: 36415; 76775; 80051; 81003; 82040; 82043; 82306; 82310; 82565; 83735; 83970; 84100; 84156; 84520; 85025; 87086

== ENCOUNTER → 2022-06-23 08:40 | Outpatient (BNVA) | payer MEDICARE, MEDICAID, SELFPAY | PROVIDERS: PCP Internal Medicine; Visit Provider Student in an Organized Health Care Education/Training Program | DX: M25.522 Pain in left elbow (principal); M54.50 Low back pain, unspecified | CPT/HCPCS: 99202 ==

== ENCOUNTER 2022-06-28 07:50 | Outpatient (REF) | payer MEDICARE, MEDICAID, SELFPAY ==
[2022-06-28 09:36] LABS: C Reactive Protein 0.47 mg/dL (< or = 0.50); Rheumatoid Factor < 13.0 IU/mL (<15.0); Uric Acid 8.2 mg/dL (3.4-7.0)
[2022-06-28 09:47] LABS: Erythrocyte Sedimentation Rate 5 MM/HR (0-15)
[2022-06-29 05:01] LABS: HBc Num1 0.08 S/CO (0.00-0.79); HBsAGNum1 0.31 S/CO (0.00-0.99); Hepatitis A Antibody IgM 0.21 Index (0-0.79); Hepatitis B Core Antibody Nonreactive (Nonreactive); Hepatitis B Surface Antigen Negative (Negative); ~HepC Num1 0.12 S/CO (0.00-0.79); ~Hepatitis A Antibody IgM Nonreactive (Nonreactive); ~Hepatitis B Surface Antibody NONREACTIVE (Nonreactive); ~Hepatitis C Antibody Nonreactive (Nonreactive)
[2022-06-30 15:13] LABS: Prot Elec - Albumin 4.4 g/dL (3.8-4.8); Prot Elec - Alpha1 0.3 g/dL (0.2-0.3); Prot Elec - Alpha2 0.7 g/dL (0.5-0.9); Prot Elec - Beta 1 0.4 g/dL (0.4-0.6); Prot Elec - Beta 2 0.3 g/dL (0.2-0.5); Prot Elec - Total Protein 7.1 g/dL (6.1-8.1)
[2022-06-30 15:54] LABS: Cyclic Citrullinated Peptide <16 UNITS
[2022-07-01 16:03] LABS: IgA 198 mg/dL (70-320); IgG 1089 mg/dL (600-1540); IgM 92 mg/dL (50-300)
== END 2022-06-28 07:51 | disposition home or self-care (01) ==
LOC: HO.LAB 07:50
PROVIDERS: PCP Internal Medicine; Visit Provider Student in an Organized Health Care Education/Training Program
DX: Z11.59 Encounter for screening for other viral diseases (principal); M25.532 Pain in left wrist; Z72.89 Other problems related to lifestyle
CPT/HCPCS: 36415; 82784; 84165; 84550; 85652; 86140; 86200; 86334; 86431; 86704; 86706; 86709; 86803; 87340

== ENCOUNTER → 2022-07-08 10:41 | Outpatient (BNVA) | payer MEDICARE, MEDICAID, SELFPAY | PROVIDERS: PCP Internal Medicine; Visit Provider Student in an Organized Health Care Education/Training Program | DX: M1A.09X0 Idiopathic chronic gout, multiple sites, without tophus (tophi) (principal) | CPT/HCPCS: 99212 ==

== ENCOUNTER → 2022-08-29 08:17 | Outpatient (BNVA) | payer MEDICARE, MEDICAID, SELFPAY | PROVIDERS: PCP Internal Medicine; Visit Provider Anesthesiology | DX: M54.50 Low back pain, unspecified (principal); M47.816 Spondylosis without myelopathy or radiculopathy, lumbar region; M46.1 Sacroiliitis, not elsewhere classified; M53.3 Sacrococcygeal disorders, not elsewhere classified; G89.4 Chronic pain syndrome | CPT/HCPCS: 99212 ==

== ENCOUNTER 2022-09-09 06:59 | Day surgery (SDC) | payer MEDICARE, MEDICAID, SELFPAY ==
[2022-09-06 15:57] VITALS: BMI 33.8
--- NOTE | 2022-09-08 09:13 | HO.ANESPROP2 ---
Documented by User: Nichelle Rivas NP 09/08/22 09:20 HPI - Anesthesia Eval Consult details Narrative: 77yo M for Left Therapeutic Sacroiliac Joint Steroid Injection PMFSH Active Problems Active Problems: All Active Problems (Updated 07/08/22 @ 11:09 by Yahaira Mallory MD) Gout (Acute) Left wrist pain (Acute) CKD (chronic kidney disease) stage 3, GFR 30-59 ml/min (Acute) Left elbow pain (Acute) Osteoarthritis of left knee (Acute) Osteophyte, left knee (Acute) Left knee pain (Acute) Overactive bladder (Acute) Chronic pain syndrome (Acute) Sacroiliac dysfunction (Acute) Sacroiliitis (Acute) Spondylosis without myelopathy or radiculopathy, lumbar region (Acute) Screening for diabetes mellitus (Acute) Low back pain (Acute) Screening for colon cancer (Acute) Leg edema (Acute) Prostate cancer (Acute) Parkinsons disease (Acute) Mixed hyperlipidemia (Acute) Essential hypertension (Acute) GERD (gastroesophageal reflux disease) (Acute) Lumbar degenerative disc disease (Acute) Past Medical History Medical History Adult general medical exam Chronic pain syndrome Essential hypertension GERD (gastroesophageal reflux disease) Left knee pain Leg edema Lumbar degenerative disc disease Mixed hyperlipidemia Parkinsons disease Prostate cancer Sacroiliac dysfunction Sacroiliitis Screening for colon cancer Screening for viral disease Spondylosis without myelopathy or radiculopathy, lumbar region Urgency incontinence Family History Family History Father No problems noted. Mother Diabetes Cancer Surgical History Surgical History History of basal cell carcinoma (BCC) excision History of cataract surgery History of colonoscopy History of prostatectomy Social History Social History Housing: Apartment Alcohol intake: former Patient Tobacco Use Status: Never used Tobacco e-Cigarette/Vaping Use: Never Used Second Hand Smoke Exposure: No Use of substances other than those prescribed or required for medical reasons: No Are you DNR?: No Advance Directives: No Advance Directives Information Provided: Yes service: No Current occupational status: disabled Cognitive needs: Yes Hearing needs: No Vision needs: No Meds Allergies Allergy/AdvReac Type Severity Reaction Status Date / Time pravastatin Allergy Intermediate dry mouth Verified 08/29/22 08:24 Home Medications Medication Instructions Recorded Confirmed Last Taken Type pramipexole 0.5 mg tablet 0.5 mg PO TID 03/18/20 05/12/22 09/09/22 05:45 History clonazepam 0.5 mg tablet 0.5 mg PO BEDTIME 06/07/21 05/12/22 Unknown History carbidopa 25 mg-levodopa 100 mg 2 tab PO BID 06/15/21 05/12/22 09/09/22 05:45 History tablet trihexyphenidyl 2 mg tablet mg PO 05/19/22 09/09/22 05:45 History hydrochlorothiazide 25 mg tablet 25 mg PO DAILY 07/08/22 Unknown History allopurinol 100 mg tablet See Rx Instructions PO .COMPLEX 09/09/22 Unknown History (Zyloprim) Exam Exam Date and Time: September 08, 2022912 Height,Weight and Vital Signs: Height 5 ft 8 in Weight 100.698 kg Pertinent Lab Results Pertinent Lab Results: Laboratory Tests 06/17/22 06/17/22 07:31 07:31 WBC 6.3 Hgb 13.9 L Hct 41.3 L Plt Count 188 Sodium 140 Potassium 4.6 Chloride 105 Carbon Dioxide 27 BUN 26 H Creatinine 1.07 Assessment and Plan Assessment Anesthesia Assessment: Chart Reviewed Documented by User: Tami Hinkle MD 09/09/22 07:47 PMFSH Past Medical History Medical History Adult general medical exam Chronic pain syndrome Essential hypertension GERD (gastroesophageal reflux disease) Left knee pain Leg edema Lumbar degenerative disc disease Mixed hyperlipidemia Parkinsons disease Prostate cancer Sacroiliac dysfunction Sacroiliitis Screening for colon cancer Screening for viral disease Spondylosis without myelopathy or radiculopathy, lumbar region Urgency incontinence Family History Family History Father No problems noted. Mother Diabetes Cancer Family history of problems with anesthesia: No Surgical History Surgical History History of basal cell carcinoma (BCC) excision History of cataract surgery History of colonoscopy History of prostatectomy History of Problems with Anesthesia: No Social History Social History Housing: Apartment Alcohol intake: former Patient Tobacco Use Status: Never used Tobacco e-Cigarette/Vaping Use: Never Used Second Hand Smoke Exposure: No Use of substances other than those prescribed or required for medical reasons: No Are you DNR?: No Advance Directives: No Advance Directives Information Provided: Yes service: No Current occupational status: disabled Cognitive needs: Yes Hearing needs: No Vision needs: No Meds Allergies Allergy/AdvReac Type Severity Reaction Status Date / Time pravastatin Allergy Intermediate dry mouth Verified 08/29/22 08:24 Home Medications Medication Instructions Recorded Confirmed Last Taken Type pramipexole 0.5 mg tablet 0.5 mg PO TID 03/18/20 05/12/22 09/09/22 05:45 History clonazepam 0.5 mg tablet 0.5 mg PO BEDTIME 06/07/21 05/12/22 Unknown History carbidopa 25 mg-levodopa 100 mg 2 tab PO BID 06/15/21 05/12/22 09/09/22 05:45 History tablet trihexyphenidyl 2 mg tablet mg PO 05/19/22 09/09/22 05:45 History hydrochlorothiazide 25 mg tablet 25 mg PO DAILY 07/08/22 Unknown History allopurinol 100 mg tablet See Rx Instructions PO .COMPLEX 09/09/22 Unknown History (Zyloprim) Exam Airway Mallampati Class: III TM Dist: <=3cm Neck ROM: Limited Heart: ttt Lungs: cta Assessment and Plan Assessment Anesthesia Assessment: Anesthesia Plan Discussed Final Anesthetic Review Family History of Problems with Anesthesia: No History of Problems with Anesthesia: No NPO: Yes ASA Class: III Final Preanesthetic Review: No Changes in Pt Med Stat, Meds/Allgs Chart Reviewed, Consent Obtained/Reviewed and Anes Risks/Benef Reviewed Patient Risk: Intermediate Procedure Risk: Low Anesthetic Plan Anesthetic Plan: MAC: Disposition: Standard PACU
--- NOTE | ~2022-09-09 | FL_ITS ---
EXAMINATION: XR FLUOROSCOPY WITH IMAGES CLINICAL INFORMATION: Left SIJ injection. COMPARISON: None available. TECHNIQUE: Fluoroscopy Supervised By: Dr. Askew. Fluoroscopy Time: 0.1 minutes. Cumulative Dose: 3.51 mGy. DAP: 0.0611 Gycm2. Images: 1. FINDINGS: Image demonstrates needle placement and contrast injection of the left sacroiliac joint FL/FL guidance in OR IMPRESSION: Fluoroscopic guidance for left sacroiliac joint injection
[2022-09-09 07:44] VITALS: BP 169/82; PULSE 75; RESP 18; TEMP 36.8; O2SAT 97
--- NOTE | 2022-09-09 08:15 | MHC.SHP ---
Pre-Procedural Eval Section A Date of Service: 09/09/22 The patient is an INPATIENT: No Changes since office visit: Yes Patient answered all questions The History & Physical has been completed within 30 days and I have reviewed it.: No Section B Chief Complaint: Sacrococcygeal disorders,Sacroiliitis, Details of Present Illness: as above Relevant Family History (Specify if Yes): No Relevant Social History: None Present Medications: see Short Stay Collaborative assessment Medical History: Significant History History of Previous Operations: No relevant previous surgery Allergies: Allergies Allergy/AdvReac Type Severity Reaction Status Date / Time pravastatin Allergy Intermediate dry mouth Verified 08/29/22 08:24 Review of Systems Sugical H&P ROS: Negative: Constitution, Cardiovascular, Respiratory, Psychiatric, Hem-Onc, Allergic/Immunologic, Integumentary, Endocrine and Eyes/Ears/Nose/Throat and Yes, Specify: Neurological ( Parkinson's disease), Gastrointestinal ( GERD), Genitourinary ( CKD stage 3) and Musculoskeletal ( osteoarthritis) Exam Surgical H&P Exam: Normal: HEENT, Normal: Heart, Normal: Lungs, Normal: Extremities, Normal: Abdomen and Normal: Skin and Significant Findings: Neurological ( Parkinson's tremor) Plan Diagnosis/Plan: Unchanged I have reviewed the history and physical and performed a pertinent physical examination on my patient. No changes have occurred unless specified. Time Spent With Patient Time: Total time managing care of this patient today ____ minutes.
--- NOTE | 2022-09-09 08:47 | P.BOP_ITS ---
Brief Operative Note Date of Service: 09/09/22 Pre-op diagnosis: sacroiliitis Post-op diagnosis: same Procedure: left SI joint injection steroids Implants: none Surgeon: Nile Askew MD Anesthesia: MAC Was an Software Security Architect used for this Procedure?: No Estimated blood loss (mL): 0 Condition: stable Disposition: PACU
[2022-09-09 08:48] VITALS: BP 175/104; PULSE 77; RESP 20; TEMP 37.2; O2SAT 98
--- NOTE | 2022-09-09 08:49 | W.PM.OPN ---
Operative Note Operative Note Date of Service: 09/09/22 Narrative: left therapeutic sacroiliac joint injection Informed consent was explained thoroughly to the patient.? All questions about benefits and risks for the procedure were answered. Patient came to the operating room and was positioned prone on the operating table with the pillow under the pelvis. [employer] [place] [employer] monitors were applied and patient was moderately sedated. The lower back and buttocks of the patient were prepped with ChloraPrep prepped and draped with sterile utility towels.? C-arm was brought over the operating field and sq picture of patient's pelvis was demonstrated on the screen.? For the right joint tilting C-arm contralateral to the site of the joint the most posterior portion of the joints was superimposed with anterior silhouette of the joint.? Skin was injected in the projection of the joint slightly medial to the location of the joint with 25 gauge 1/2 inch needle using local lidocaine 2% .After that 22 gauge 3 and 1/2 inch needle was driven to the right joint in tunnel vision fashion.? When needle entered the joint capsule injection of the contrast was performed demonstrating periarticular spread of the contrast.? After that 6 cc. of ropivacaine 0.5%? mixed with Kenalog 40 mg was injected into the? joint.? Upon completion of the injections the needle was removed Sterile dressing was applied.? Upon completion of the injection patient was taken outside of the operating room to the recovery room where he recovered uneventfully
[2022-09-09 08:50] VITALS: BP 158/88; O2SAT 98
[2022-09-09 09:03] VITALS: BP 170/90; PULSE 85; RESP 20; O2SAT 98
[2022-09-09 09:18] VITALS: BP 162/88; PULSE 85; RESP 20; TEMP 36.5; O2SAT 98
--- NOTE | 2022-09-09 11:15 | PC.NURSE ---
spoke with patient maryruba, she states that his grandaughter will be staying with him today. with spiral machine operator asked patient how he felt when he walked and he stated good .
== END 2022-09-09 10:40 | disposition home or self-care (01) ==
PROVIDERS: PCP Internal Medicine; Visit Provider Anesthesiology
PROC: 3E0U33Z Introduction of Anti-inflammatory into Joints, Percutaneous Approach (ICD-10-PCS; CPT 27096; principal; 2022-09-09 08:30)
DX: M46.1 Sacroiliitis, not elsewhere classified (principal); M53.3 Sacrococcygeal disorders, not elsewhere classified; G89.4 Chronic pain syndrome; M51.36 Other intervertebral disc degeneration, lumbar region; M47.816 Spondylosis without myelopathy or radiculopathy, lumbar region; M54.50 Low back pain, unspecified; I10 Essential (primary) hypertension; E78.2 Mixed hyperlipidemia; G20 Parkinson's disease; R32 Unspecified urinary incontinence; Z85.46 Personal history of malignant neoplasm of prostate; Z85.828 Personal history of other malignant neoplasm of skin; Z88.8 Allergy status to other drugs, medicaments and biological substances
CPT/HCPCS: G0260; J2795; J3301; Q9967

== ENCOUNTER 2022-10-05 07:28 | Outpatient (REF) | payer MEDICARE, MEDICAID, SELFPAY ==
[2022-10-05 07:43] LABS: MANUAL DIFF FLAG NO
[2022-10-05 07:58] LABS: Basophils Percent Auto 0.2 % (0-2); Eosinophils Absolute Auto 0.1 X10*3/uL (0.0-0.4); Eosinophils Percent Auto 2.1 % (0-4); Hematocrit 41.1 % (42.0-52.0); Hemoglobin 13.6 g/dl (14.0-18.0); Imm Gran Abs Auto 0.01 X10*3/uL (0.00-0.03); Imm Gran Pct Auto 0.2 % (0.0-0.4); Lymphocytes Absolute Auto 1.1 X10*3/uL (1.2-4.9); Lymphocytes Percent Auto 20.5 % (20-40); Mean Corpuscular HGB Conc 33.1 g/dl (31.0-36.0); Mean Corpuscular Hemoglobin 30.9 pg (27.0-33.0); Mean Corpuscular Volume 93.4 fL (80.0-98.0); Mean Platelet Volume 11.9 fL (9.4-12.4); Monocytes Absolute Auto 0.4 X10*3/uL (0.1-1.2); Monocytes Percent Auto 8.3 % (2-11); Neutrophils Absolute Auto 3.6 x10*3/uL (2.0-8.3); Neutrophils Percent Auto 68.7 % (45-73); Platelet Count 149 X10*3/uL (160-400); White Blood Count 5.3 X10*3/uL (4.8-10.8)
[2022-10-05 08:25] LABS: Alanine Aminotransferase 7 U/L (0-40); Albumin Level 4.5 g/dL (3.5-5.0); Alkaline Phosphatase 68 U/L (39-117); Anion Gap 12 (12-20); Aspartate Amino Transferase 31 U/L (5-37); Bilirubin Total 0.5 mg/dL (0.0-1.0); Blood Urea Nitrogen 21 mg/dL (9-16); Calcium 9.8 mg/dL (8.4-10.2); Carbon Dioxide 26 mmol/L (22-29); Chloride 104 mmol/L (96-108); Estimated Glomerular Filt Rate > 60; Glucose Random 125 mg/dL (60-115); Potassium 3.9 mmol/L (3.3-5.1); Sodium 138 mmol/L (135-145); Total Protein 7.3 g/dL (6.5-8.0); Uric Acid 4.5 mg/dL (3.4-7.0)
== END 2022-10-05 07:29 | disposition home or self-care (01) ==
LOC: HO.LAB 07:28
PROVIDERS: PCP Internal Medicine; Visit Provider Student in an Organized Health Care Education/Training Program
DX: M10.9 Gout, unspecified (principal)
CPT/HCPCS: 36415; 80053; 84550; 85025

== ENCOUNTER 2022-10-07 09:03 | Outpatient (AMB) | payer MEDICARE, MEDICAID, SELFPAY ==
--- NOTE | 2022-10-07 09:05 | A.OFFVIS_ITS ---
Intake Vital Signs 10/07/22 09:07 Height 5 ft 8 in Weight 214 lb 15.211 oz BMI 32.7 BP 148/72 H Blood Pressure Location Rt brachial Position Sitting Pulse 75 Pulse Source Pulse Oximeter Temp 97.8 F Temp Source Skin Pulse Oximetry (%) 97 Intake Visit Reasons: Gout Intake Note: * Pt seen today for Gout follow up * Denies recent flare ups Dubbing Machine Operator Required: No Accompanied by: Grand Child Lynne Allergies pravastatin Allergy (Intermediate, Verified 10/07/22 09:10) dry mouth Medication List - Last Reconciled 10/07/22 by Yahaira Mallory MD acetaminophen 500 mg PO Q6H PRN allopurinol (Zyloprim) 200 mg (2 x 100 mg) PO DAILY atorvastatin 40 mg PO DAILY bisacodyl (Dulcolax (bisacodyl)) 10 mg (2 x 5 mg) PO ONCE 2 days carbidopa-levodopa 25-100 mg 2 tabs PO BID cholecalciferol (vitamin D3) 25 mcg PO DAILY 90 days clonazepam 0.5 mg PO BEDTIME colchicine (Mitigare) 0.6 mg PO .other dAY diclofenac sodium 1% (Voltaren Arthritis Pain) 2 grams topical QID fenofibrate 54 mg PO DAILY 90 days furosemide 20 mg PO DAILY 90 days hydrochlorothiazide 25 mg PO DAILY lidocaine 4% (Aspercreme (lidocaine)) 1 patch topical DAILY PRN lisinopril 40 mg PO DAILY 90 days meclizine 25 mg PO TID PRN 7 days mirabegron ER (Myrbetriq) 25 mg PO DAILY 90 days omeprazole 20 mg PO DAILY 90 days polyethylene glycol 3350 (Miralax) 17 grams PO DAILY 1 day pramipexole 0.5 mg PO TID trihexyphenidyl mg PO walker walker with seat and wheels HPI HPI Comments History of Present Illness Details 77-year-old male with gout returns to clinic with his daughter for follow-up. Compliant with allopurinol 200 mg daily and colchicine 1 tab every other day. No recent gout flare-ups. Tolerating both meds well Initial history: This is a 77-year-old male with past medical history of Parkinson's who is referred for evaluation of left elbow pain. Patient is here with his daughter she stated that 2-3 months ago patient went to [facility] due to left elbow, left wrist and left knee pain and swelling. He had an elbow and wrist x-ray done and they were told it might be arthritis and sent home. He was taking Tylenol. Patient does not have elbow or wrist pain now. His main complaint is low back pain. There is no history of kidney stones. There is no known family history of gout. Patient does not consume alcohol [facility] Medical History Adult general medical exam Chronic pain syndrome Essential hypertension GERD (gastroesophageal reflux disease) Left knee pain Leg edema Lumbar degenerative disc disease Mixed hyperlipidemia Parkinsons disease Prostate cancer Sacroiliac dysfunction Sacroiliitis Screening for colon cancer Screening for viral disease Spondylosis without myelopathy or radiculopathy, lumbar region Urgency incontinence Surgical History History of basal cell carcinoma (BCC) excision History of cataract surgery History of colonoscopy History of prostatectomy Family History Father No problems noted. Mother Diabetes Cancer Social History Housing: Apartment Alcohol intake: former Patient Tobacco Use Status: Never used Tobacco e-Cigarette/Vaping Use: Never Used Second Hand Smoke Exposure: No service: No Current occupational status: disabled Cognitive needs: Yes Hearing needs: No Vision needs: No Review of Systems Musc Denies arthralgias, Denies joint swelling and Denies stiffness Physical Exam Vital Signs: Last Vital Signs Temp 97.8 F 10/07/22 09:07 Pulse 75 10/07/22 09:07 BP 148/72 H 10/07/22 09:07 Pulse Ox 97 10/07/22 09:07 BMI result Body Mass Index 32.7 Const General: cooperative, healthy appearing and comfortable Nutritional Appearance: obese Limitations: no limitations HEENT Head: Yes normocephalic and Yes atraumatic Mouth: moist mucous membranes Resp Effort & Inspection: normal respiratory effort and able to speak in complete sentences Auscultation: clear to auscultation bilaterally Extrem Other: No active synovitis. Normal range of motion of the elbows wrists hands. Negative resisted wrist extension test bilaterally No tophi noted Assessment & Plan Assessment & Plan (1) Gout: Comment: abrupt onset of multiple painful and swollen joints including his elbows and wrists. He has had multiple attacks over the last 1-2 Initial uric acid level 8.2 07/10 Allopurinol 200 mg and colchicine started 07/10 Code(s): M10.9 - Gout, unspecified Qualifiers: Gout site: multiple sites Gout etiology: idiopathic Chronicity: chronic Presence of tophus: without tophus Qualified Code(s): M1A.09X0 - Idiopathic chronic gout, multiple sites, without tophus (tophi) Plan: 77-year-old male with gout returns for follow-up. Doing well overall with no recent gout flare-ups. Tolerating allopurinol 200 mg daily and colchicine 0.6 mg every other day. Uric acid level is 4.5 Labs showing mild thrombocytopenia. Will consider discontinuing colchicine next visit, will also consider reducing allopurinol to 100 mg daily Labs before next visit in 3 month Plan I spent 22 minutes reviewing patient's chart, evaluating patient, ordering diagnostic workup, counseling patient and documenting in the chart Orders: Orders Comprehensive Met. Panel 3 Months M10.9 - Gout, unspecified Yahaira Mallory MD Uric Acid 3 Months M10.9 - Gout, unspecified Yahaira Mallory MD Complete Blood Count Auto Diff 3 Months M10.9 - Gout, unspecified Yahaira Mallory MD Medications: Changed From allopurinol (Zyloprim) Take 1 tab once daily for 2 weeks then increase to 2 tabs daily To allopurinol (Zyloprim) 200 mg (2 x 100 mg) PO DAILY 180 tabs 0RF Yahaira Mallory MD Refilled colchicine (Mitigare) ONE TAB EVERY OTHER DAY 0.6 mg PO .other dAY 45 caps 0RF Yahaira Mallory MD Discontinued allopurinol Take 1 tab once daily for 2 weeks then increase to 2 tabs daily 180 tabs 1RF Maegan Dodge, bridge construction inspector Reporting (2019) Adult ([facility] 138/05/11/68) Smoking risk assessment performed?: Yes Patient Tobacco Use Status: Never used Tobacco Coding Level of Care Code Est Pt Level 3 (99533) Diagnoses Gout M1A.09X0 Gout site: multiple sites Gout etiology: idiopathic Chronicity: chronic Presence of tophus: without tophus
[2022-10-07 09:07] VITALS: BP 148/72; PULSE 75; TEMP 36.6; O2SAT 97; BMI 32.7
== END 2022-10-07 09:24 | disposition home or self-care (01) ==
PROVIDERS: PCP Internal Medicine; Visit Provider Student in an Organized Health Care Education/Training Program
DX: M1A.09X0 Idiopathic chronic gout, multiple sites, without tophus (tophi) (principal)
CPT/HCPCS: 99213

== ENCOUNTER → 2022-10-07 09:03 | Outpatient (BNVA) | payer MEDICARE, MEDICAID, SELFPAY | PROVIDERS: Visit Provider Student in an Organized Health Care Education/Training Program | DX: M1A.09X0 Idiopathic chronic gout, multiple sites, without tophus (tophi) (principal); Z79.899 Other long term (current) drug therapy | CPT/HCPCS: 99212 ==

== ENCOUNTER 2022-10-21 13:03 | Outpatient (AMB) | payer MEDICARE, MEDICAID, SELFPAY ==
--- NOTE | 2022-10-21 13:10 | A.OFFVIS_ITS ---
Intake Vital Signs 10/21/22 13:20 Height 5 ft 11 in Weight 213 lb 4 oz BMI 29.7 BP 179/93 H Blood Pressure Location Lt brachial Position Sitting Pulse 78 Pulse Source Pulse Oximeter Pulse Oximetry (%) 98 Oxygen Delivery Method Room Air Intake Visit Reasons: s/p L. Therapeutic SIJ Inj 09/09/22 Intake Note: Pain today 8/10 Gasket Supervisor Required: Yes Gasket Supervisor Language: Landscape Technician Name: maryanne Rothman Accompanied by: Self / Same As Patient Allergies pravastatin Allergy (Intermediate, Verified 10/21/22 13:19) dry mouth HPI HPI Comments History of Present Illness Details Patient presents today to assess response to Left Therapeutic SIJ injection on 09/09/[address] Askew. Patient reports 100% pain relief for 3-4 weeks after which his pain gradually returned to its baseline with pain rated at 8/10. Denies lower back pain today. Reports tenderness in left buttock and into left lateral hip without groin pain. He also reports left knee pain and had received cortisone injections through Orthopedics office last summer with good results. Denies any recent cough, cold, infection, fever or other significant changes in medical history since last office visit. Patient denies any bladder or bowel incontinence or saddle anesthesia. PRIOR Dr. Askew: Mr Cody Rivas is in the office today after left diagnostic sacroiliac joint injection which patient received 06/29/2021.? He reports that pain came back 3 weeks after the injection this is very with results. It let us hope that in [place] e of steroid injection the patient will receive prolong sustained pain relief. He does not appear to have problems with diabetes and therefore small injection of the steroid should be minimally affecting him otherwise. He wants the procedure to be performed under sedation. I do not mind to perform sacroiliac joint injection for him with sedation. I will schedule him in the operating room for the injection. His options are sacroiliac joint innervation stimulation and sacroiliac joint fusion as well as sacroiliac joint steroid injection. Unlikely fusion is a good option for this gentleman he is 77 years old. However the PNS of the SI joints stimulation might be employed in the future if the sacroiliac joint injection will last shorter than 3 months. History of: ?lower back pain with radiation into bilateral lower extremities on the lateral sides to the level of the knees but not below the level of the knees. ?in [place] he was under care of some practitioners who performed injections nature which the patient does not know.? [place] in [place]. Rooney started him on oxycodone 5 mg 4 times a day.? He also tried icy Hot skin patch which did not help his pain.? He never had physical therapy he never had chiropractic manipulations he never had acupuncture to help his pain.? He never had TENS? unit.?? images of his lower back in [place] which was long time ago.? ? REMOTE HISTORY OF PROSTATECTOMY FOR PROSTATE CANCER IN [place].? Was long time ago, he would need to go to psychological evaluation a if he would choose to get SI joint innervation peripheral stimulation [facility] Medical History Adult general medical exam Chronic pain syndrome Essential hypertension GERD (gastroesophageal reflux disease) Left knee pain Leg edema Lumbar degenerative disc disease Mixed hyperlipidemia Parkinsons disease Prostate cancer Sacroiliac dysfunction Sacroiliitis Screening for colon cancer Screening for viral disease Spondylosis without myelopathy or radiculopathy, lumbar region Urgency incontinence Surgical History History of basal cell carcinoma (BCC) excision History of cataract surgery History of colonoscopy History of prostatectomy Family History Father No problems noted. Mother Diabetes Cancer Social History Housing: Apartment Alcohol intake: former Patient Tobacco Use Status: Never used Tobacco e-Cigarette/Vaping Use: Never Used Second Hand Smoke Exposure: No service: No Current occupational status: disabled Cognitive needs: Yes Hearing needs: No Vision needs: No Review of Systems Const All systems reviewed & are unremarkable except as noted in HPI and below ENT Reports Normal hearing present Neuro Reports Normal hearing present, Denies Abnormal speech present, Denies confusion and Denies Sensory deficit (Neuro) Psych Denies confusion Physical Exam Vital Signs: Last Vital Signs Pulse 78 10/21/22 13:20 BP 179/93 H 10/21/22 13:20 Pulse Ox 98 10/21/22 13:20 Oxygen Delivery Method Room Air 10/21/22 13:20 BMI result Body Mass Index 29.7 Const General: cooperative, no acute distress and awake; No confusion Nutritional Appearance: well nourished and overweight Orientation/consciousness: No confusion Limitations: language barrier HEENT Ears: hearing grossly normal bilaterally Eyes General: appearance normal, both eyes and all related structures Pupils: Equal, round and reactive pupils present EOM: EOMs intact bilaterally Neck Neck: Yes full ROM Chest Chest palpation & inspection: normal inspection of the chest Resp Effort & Inspection: normal respiratory effort, able to speak in complete sentences, normal respiratory pattern, no audible wheezes and no cough Cardio Jugular venous distension: no JVD GI Inspection: Yes normal to inspection Back/Spine/Pelvis Other: Able to stand on bilateral tiptoes as well as on bilateral heels without difficulty. 5/5 strength of bilateral lower extremities. Denies any numbness in bilateral lower extremities. Reports mild weakness in bilateral lower extremities due to left knee pain. Denies any pins and needles in bilateral lower extremities. Lumbar spine ROM preserved, no pain with flexion or extension.Palpation of the left and right sacroiliac joint is positive for pain. Bhargavi finger test is positive bilaterally. Stinchfield and Bob tests are positive bilaterally Left>Right. Cervical Spine: No Cervical spine tenderness Thoracic/Lumbar Spine: thoracic and lumbar spine normal to inspection, Lasegue's sign negative, paraspinal muscle tenderness, No thoracic spinal tenderness and lumbar spinal tenderness Sacroiliac joints: bilaterally tender to palpation Neuro General: No confusion Cranial nerves: Yes Equal, round and reactive pupils present and Yes Normal hearing present Speech: No Abnormal speech present Gait exam (Neuro): Normal gait present Motor exam (neuro): 5/5 motor strength present throughout Sensory Exam: No Sensory deficit (Neuro) Extrem General: No pedal edema Left lower extremity: knee (Limited ROM due to pain.) Details: tenderness Location: of the lateral joint line and crepitus; no swelling, no ecchymosis and no unusual warmth Results Reviewed Results Reviewed: XR KNEE, LEFT 08/10/22 FINDINGS: Bone alignment is normal. No fracture or dislocation is seen. There is degenerative meniscal calcification. There are some osteophytes at the patellofemoral joint. There is a small joint effusion. IMPRESSION: Degenerative changes. Assessment & Plan Assessment & Plan (1) Osteoarthritis of left knee: Code(s): M17.12 - Unilateral primary osteoarthritis, left knee (2) Left knee pain: Code(s): M25.562 - Pain in left knee (3) Sacroiliitis: Code(s): M46.1 - Sacroiliitis, not elsewhere classified (4) Sacroiliac dysfunction: Code(s): M53.3 - Sacrococcygeal disorders, not elsewhere classified (5) Lumbar degenerative disc disease: Code(s): M51.36 - Other intervertebral disc degeneration, lumbar region Plan Patient is status post with repeated Left Therapeutic SIJ injection on 09/09/22 with no pain for 4-5 weeks. His pain has returned since in the left SIJ area. He also has mild right SIJ discomfort and no back pain today. Reports left lateral knee pain and is planning to follow up with [facility] for repeat cortisone injection. His last injection as on 10/05/21 and has provided good results. Patient is aware he cannot repeat SIJ injection until last week of November and will notify our office if his pain worsens. All questions and concerns have been answered and patient agreed with the plan. Follow up as needed. Medications: Discontinued allopurinol Take 1 tab once daily for 2 weeks then increase to 2 tabs daily 180 tabs 1RF Quality Reporting (2019) Adult ([facility] ) Smoking risk assessment performed?: Yes Patient Tobacco Use Status: Never used Tobacco Coding Level of Care Code Est Pt Level 3 (99909) Diagnoses Osteoarthritis of left knee M17.12 Left knee pain M25.562 Sacroiliitis M46.1 Sacroiliac dysfunction M53.3 Lumbar degenerative disc disease M51.36
[2022-10-21 13:20] VITALS: BP 179/93; PULSE 78; O2SAT 98; BMI 29.7
== END 2022-10-21 13:37 | disposition home or self-care (01) ==
PROVIDERS: PCP Internal Medicine; Visit Provider Nurse Practitioner Family
DX: M17.12 Unilateral primary osteoarthritis, left knee (principal); M25.562 Pain in left knee; M46.1 Sacroiliitis, not elsewhere classified; M53.3 Sacrococcygeal disorders, not elsewhere classified; M51.36 Other intervertebral disc degeneration, lumbar region
CPT/HCPCS: 99213

== ENCOUNTER → 2022-10-21 13:03 | Outpatient (BNVA) | payer MEDICARE, MEDICAID, SELFPAY | PROVIDERS: PCP Internal Medicine; Visit Provider Nurse Practitioner Family | DX: M17.12 Unilateral primary osteoarthritis, left knee (principal); M25.562 Pain in left knee; M46.1 Sacroiliitis, not elsewhere classified; M53.3 Sacrococcygeal disorders, not elsewhere classified; M51.36 Other intervertebral disc degeneration, lumbar region | CPT/HCPCS: 99212 ==

== ENCOUNTER 2022-12-21 07:53 | Outpatient (REF) | payer MEDICARE, MEDICAID, SELFPAY ==
[2022-12-21 08:06] LABS: MANUAL DIFF FLAG NO
[2022-12-21 08:59] LABS: Basophils Percent Auto 0.3 % (0-2); Eosinophils Absolute Auto 0.2 X10*3/uL (0.0-0.4); Eosinophils Percent Auto 3.8 % (0-4); Hematocrit 41.6 % (42.0-52.0); Hemoglobin 14.1 g/dl (14.0-18.0); Imm Gran Abs Auto 0.02 X10*3/uL (0.00-0.03); Imm Gran Pct Auto 0.3 % (0.0-0.4); Lymphocytes Absolute Auto 1.6 X10*3/uL (1.2-4.9); Lymphocytes Percent Auto 26.8 % (20-40); Mean Corpuscular HGB Conc 33.9 g/dl (31.0-36.0); Mean Corpuscular Hemoglobin 31.9 pg (27.0-33.0); Mean Corpuscular Volume 94.1 fL (80.0-98.0); Mean Platelet Volume 12.6 fL (9.4-12.4); Monocytes Absolute Auto 0.5 X10*3/uL (0.1-1.2); Monocytes Percent Auto 8.5 % (2-11); Neutrophils Absolute Auto 3.6 x10*3/uL (2.0-8.3); Neutrophils Percent Auto 60.3 % (45-73); Platelet Count 171 X10*3/uL (160-400); Red Blood Count 4.42 X10*6/uL (4.60-5.80); Red Cell Distribution Width 13.3 % (11.0-16.0)
[2022-12-21 09:33] LABS: Alanine Aminotransferase 5 U/L (0-40); Albumin Level 4.5 g/dL (3.5-5.0); Alkaline Phosphatase 64 U/L (39-117); Anion Gap 12 (12-20); Aspartate Amino Transferase 21 U/L (5-37); Bilirubin Total 0.6 mg/dL (0.0-1.0); Blood Urea Nitrogen 18 mg/dL (9-16); Calcium 9.9 mg/dL (8.4-10.2); Carbon Dioxide 24 mmol/L (22-29); Chloride 110 mmol/L (96-108); Cholesterol 151 mg/dL (<200); Estimated Glomerular Filt Rate > 60; Glucose Fasting 103 mg/dL (60-99); HDL Cholesterol 42 mg/dL (>40); Iron 99 mcg/dL (45-160); LDL Cholesterol Calculated 85 mg/dL (<100); Percent Iron Saturation 32 % (15-50); Potassium 3.8 mmol/L (3.3-5.1); Sodium 142 mmol/L (135-145); Total Iron Binding Capacity 309 mcg/dL (228-428); Total Protein 7.2 g/dL (6.5-8.0); Triglycerides 122 mg/dL (<150); Unsaturated Iron Binding 210 ug/dL
[2022-12-21 09:55] LABS: Vitamin D 25-OH Total 34.8 ng/mL (>30)
[2022-12-21 09:59] LABS: Folate 14.4 ng/mL (> or = 4.0); Vitamin B12 716 pg/mL (200-900)
== END 2022-12-21 07:54 | disposition home or self-care (01) ==
LOC: HO.LAB 07:53
PROVIDERS: PCP Internal Medicine; Visit Provider Student in an Organized Health Care Education/Training Program
DX: D64.9 Anemia, unspecified (principal); M46.1 Sacroiliitis, not elsewhere classified; E78.5 Hyperlipidemia, unspecified; E53.8 Deficiency of other specified B group vitamins; E55.9 Vitamin D deficiency, unspecified
CPT/HCPCS: 36415; 80053; 80061; 82306; 82607; 82746; 83540; 85025

== ENCOUNTER 2022-12-30 08:16 | Outpatient (AMB) | payer MEDICARE, MEDICAID, SELFPAY ==
--- NOTE | 2022-12-30 08:21 | MHC.OFFVIS ---
Intake Vital Signs 12/30/22 08:23 Height 5 ft 11 in Weight 223 lb 5.252 oz BMI 31.1 BP 160/92 H Blood Pressure Location Rt brachial Position Sitting Pulse 69 Pulse Source Pulse Oximeter Temp 97.9 F Temp Source Skin Pulse Oximetry (%) 97 Intake Visit Reasons: Gout Intake Note: Pt seen today for gout follow up and test results. Denies flare ups. Net Application Architect Required: No Accompanied by: Self / Same As Patient Allergies pravastatin Allergy (Intermediate, Verified 12/30/22 08:28) dry mouth Medication List - Last Reconciled 12/30/22 by Yahaira Mallory MD acetaminophen 500 mg PO Q6H PRN allopurinol (Zyloprim) 200 mg (2 x 100 mg) PO DAILY atorvastatin 40 mg PO DAILY bisacodyl (Dulcolax (bisacodyl)) 10 mg (2 x 5 mg) PO ONCE 2 days carbidopa-levodopa 25-100 mg 2 tabs PO BID cholecalciferol (vitamin D3) 25 mcg PO DAILY 90 days clonazepam 0.5 mg PO BEDTIME diclofenac sodium 1% (Voltaren Arthritis Pain) 2 grams topical QID fenofibrate 54 mg PO DAILY 90 days furosemide 20 mg PO DAILY 90 days hydrochlorothiazide 25 mg PO DAILY lidocaine 4% (Aspercreme (lidocaine)) 1 patch topical DAILY PRN lisinopril 40 mg PO DAILY 90 days meclizine 25 mg PO TID PRN 7 days mirabegron ER (Myrbetriq) 25 mg PO DAILY 90 days omeprazole 20 mg PO DAILY 90 days polyethylene glycol 3350 (Miralax) 17 grams PO DAILY 1 day pramipexole 0.5 mg PO TID trihexyphenidyl mg PO walker walker with seat and wheels HPI HPI Comments History of Present Illness Details 77-year-old male with gout returns to clinic with his daughter for follow-up. Compliant with allopurinol 200 mg daily and colchicine 1 tab every other day. No gout flare-up for many months. Tolerating both meds well. No complaints today Initial history: This is a 77-year-old male with past medical history of Parkinson's who is referred for evaluation of left elbow pain. Patient is here with his daughter she stated that 2-3 months ago patient went to [facility] due to left elbow, left wrist and left knee pain and swelling. He had an elbow and wrist x-ray done and they were told it might be arthritis and sent home. He was taking Tylenol. Patient does not have elbow or wrist pain now. His main complaint is low back pain. There is no history of kidney stones. There is no known family history of gout. Patient does not consume alcohol [facility] Medical History Screening for viral disease Left knee pain Chronic pain syndrome Sacroiliac dysfunction Sacroiliitis Spondylosis without myelopathy or radiculopathy, lumbar region Adult general medical exam Screening for colon cancer Leg edema Urgency incontinence Prostate cancer Parkinsons disease Mixed hyperlipidemia Essential hypertension GERD (gastroesophageal reflux disease) Lumbar degenerative disc disease Surgical History History of cataract surgery History of colonoscopy History of basal cell carcinoma (BCC) excision History of prostatectomy Family History Father No problems noted. Mother Diabetes Cancer Social History Housing: Apartment Alcohol intake: former Patient Tobacco Use Status: Never used Tobacco e-Cigarette/Vaping Use: Never Used Second Hand Smoke Exposure: No service: No Current occupational status: disabled Cognitive needs: Yes Hearing needs: No Vision needs: No Review of Systems Musc Denies arthralgias, Denies joint swelling and Denies stiffness Physical Exam Vital Signs: Last Vital Signs Temp 97.9 F 12/30/22 08:23 Pulse 69 12/30/22 08:23 BP 160/92 H 12/30/22 08:23 Pulse Ox 97 12/30/22 08:23 BMI result Body Mass Index 31.1 Const General: cooperative, healthy appearing and comfortable Nutritional Appearance: obese Limitations: no limitations HEENT Head: Yes normocephalic and Yes atraumatic Mouth: moist mucous membranes Resp Effort & Inspection: normal respiratory effort and able to speak in complete sentences Auscultation: clear to auscultation bilaterally Cardio Rate: regular rate Rhythm: regular rhythm Extrem Other: No active synovitis. Normal range of motion of the elbows wrists hands. Negative resisted wrist extension test bilaterally No tophi noted Assessment & Plan Assessment & Plan (1) Gout: Comment: abrupt onset of multiple painful and swollen joints including his elbows and wrists. multiple attacks over 1-2 months Initial uric acid level 8.2 07/10 Allopurinol 200 mg 07/10 colchicine DC 12/2022 Code(s): M10.9 - Gout, unspecified Qualifiers: Gout site: multiple sites Gout etiology: idiopathic Chronicity: chronic Presence of tophus: without tophus Qualified Code(s): M1A.09X0 - Idiopathic chronic gout, multiple sites, without tophus (tophi) Plan: 77-year-old male with gout returns for follow-up. Doing well overall with no gout flare-ups for more than 6 months. Tolerating allopurinol 200 mg daily and colchicine 0.6 mg every other day. Unfortunately uric acid level was not checked with most recent labs, however most recent uric acid level a few months ago was 4.5 Will discontinue colchicine as patient has completed more than 6 months of prophylaxis without flare-ups Continue allopurinol 200 mg daily Labs before next visit in 4 month Plan I spent 16 minutes reviewing patient's chart, evaluating patient, ordering diagnostic workup, counseling patient and documenting in the chart Orders: Orders Comprehensive Met. Panel 4 Months M10.9 - Gout, unspecified Complete Blood Count Auto Diff 4 Months M10.9 - Gout, unspecified Uric Acid 4 Months M10.9 - Gout, unspecified Quality Reporting (2019) Adult ([facility] 138/05/11/68) Smoking risk assessment performed?: Yes Patient Tobacco Use Status: Never used Tobacco Coding Level of Care Code Est Pt Level 3 (79181) Diagnoses Idiopathic chronic gout of multiple sites without tophus M1A.09X0 Gout site: multiple sites Gout etiology: idiopathic Chronicity: chronic Presence of tophus: without tophus
[2022-12-30 08:23] VITALS: BP 160/92; PULSE 69; TEMP 36.6; O2SAT 97; BMI 31.1
== END 2022-12-30 08:49 | disposition home or self-care (01) ==
PROVIDERS: PCP Internal Medicine; Visit Provider Student in an Organized Health Care Education/Training Program
DX: M1A.09X0 Idiopathic chronic gout, multiple sites, without tophus (tophi) (principal)
CPT/HCPCS: 99213

== ENCOUNTER → 2022-12-30 08:16 | Outpatient (BNVA) | payer MEDICARE, MEDICAID, SELFPAY | PROVIDERS: PCP Internal Medicine; Visit Provider Student in an Organized Health Care Education/Training Program | DX: M1A.09X0 Idiopathic chronic gout, multiple sites, without tophus (tophi) (principal) | CPT/HCPCS: 99212 ==

== ENCOUNTER 2023-02-07 15:31 | Outpatient (AMB) | payer MEDICARE, MEDICAID, SELFPAY ==
[2023-02-07 15:37] VITALS: BP 146/90; PULSE 80; O2SAT 99
--- NOTE | 2023-02-07 15:37 | AM.OFFVISMDC ---
Intake Vital Signs 02/07/23 15:37 Height 5 ft 11 in Weight 215 lb 0.2 oz BMI 30.0 BP 146/90 H Blood Pressure Location Lt brachial Position Sitting Pulse 80 Pulse Source Pulse Oximeter Pulse Oximetry (%) 99 Oxygen Delivery Method Room Air Intake Visit Reasons: [facility] G0439 Rn Ent Required: No Allergies pravastatin Allergy (Intermediate, Verified 02/07/23 15:54) dry mouth Medication List - Last Reconciled 02/07/23 by CAM Max acetaminophen 500 mg PO Q6H PRN allopurinol (Zyloprim) 200 mg (2 x 100 mg) PO DAILY atorvastatin 40 mg PO DAILY bisacodyl (Dulcolax (bisacodyl)) 10 mg (2 x 5 mg) PO ONCE 2 days carbidopa-levodopa 25-100 mg 2 tabs PO BID cholecalciferol (vitamin D3) 25 mcg PO DAILY 90 days clonazepam 0.5 mg PO BEDTIME diclofenac sodium 1% (Voltaren Arthritis Pain) 2 grams topical QID fenofibrate 54 mg PO DAILY 90 days furosemide 20 mg PO DAILY 90 days hydrochlorothiazide 25 mg PO DAILY lidocaine 4% (Aspercreme (lidocaine)) 1 patch topical DAILY PRN lisinopril 40 mg PO DAILY 90 days meclizine 25 mg PO TID PRN 7 days mirabegron ER (Myrbetriq) 25 mg PO DAILY 90 days omeprazole 20 mg PO DAILY 90 days polyethylene glycol 3350 (Miralax) 17 grams PO DAILY 1 day pramipexole 0.5 mg PO TID trihexyphenidyl mg PO walker walker with seat and wheels [facility] G0439 HPI Details Patient is a 77-year-old male who presents today for subsequent wellness visit. Patient of Dr. Brennan. Today we discussed patient's need for colon cancer screening. Patient also has an outstanding blood work order for PSA which was ordered by Urology Dr. Gonzales. Patient is up-to-date with immunizations. [place] of care was reviewed with the patient and he was provided with a screening schedule. End of life planning was discussed with the patient and his daughter and they were provided with healthcare proxy and MOLST forms. Patient is a Korean-speaking and his daughter was helping with interpretation. [facility] Medical History Skin lesion Screening for viral disease Left knee pain Chronic pain syndrome Sacroiliac dysfunction Sacroiliitis Spondylosis without myelopathy or radiculopathy, lumbar region Adult general medical exam Screening for colon cancer Leg edema Urgency incontinence Prostate cancer Parkinsons disease Mixed hyperlipidemia Essential hypertension GERD (gastroesophageal reflux disease) Lumbar degenerative disc disease Surgical History History of cataract surgery History of colonoscopy History of basal cell carcinoma (BCC) excision History of prostatectomy Family History Father No problems noted. Mother Diabetes Cancer Housing: Apartment Alcohol intake: former Patient Tobacco Use Status: Never used Tobacco e-Cigarette/Vaping Use: Never Used Second Hand Smoke Exposure: No service: No Current occupational status: disabled Cognitive needs: Yes Hearing needs: No Vision needs: No Questionnaire Medicare Wellness Checkup [age] What gender do you identify with?: male During the past 4 weeks, how much have you been bothered by emotional problems such as feeling anxious, depressed, irritable, sad or downhearted, and blue?: slightly During the past 4 weeks, has your physical & emotional health limited your social activities with family, friends, neighbors, or groups?: slightly During the past 4 weeks, how much bodily pain have you generally had?: moderate pain During the past 4 weeks, was someone available to help you if you needed & wanted help?: yes, quite a bit During the past 4 weeks, what was the hardest physical activity you could do for at least 2 minutes?: heavy Can you get to places out of walking distance without help? (For eg., can you travel alone on buses, taxis or drive your car?): No Can you go shopping for groceries or clothes without someone's help?: No Can you prepare your own meals?: No Can you do your housework without help?: No Because of any health problems, do you need the help of another person with your personal care needs such as eating, bathing, dressing or getting around the house?: Yes Can you handle your own money without help?: Yes During the past 4 weeks, how would you rate your health in general?: fair During the past 4 weeks how have things been going for you?: good & bad parts about equal Are you having difficulties driving your car?: not applicable, I don't use a car Do you always fasten your seat belt when you are in a car?: yes, usually During past 4 weeks, have you been bothered by the following: never: Sexual problems?, Trouble eating well?, Teeth or denture problems? and Tiredness or fatigue? and sometimes: Falling or dizzy when standing up and Problems using the telephone? Have you fallen 2 or more times in the past year?: No Are you afraid of falling?: Yes Are you a smoker?: no During the past 4 weeks, how many drinks of wine, beer, or other alcoholic beverages did you have?: no alcohol at all Do you exercise for about 20 minutes 3 or more times a week?: yes, some of the time Have you been given information to help with the following?: yes: Keeping track of your medications? How often do you have trouble taking medicines the way you have been told to take them?: I always take medicine as prescribed How confident are you that you can control & manage most of your health problems?: not very confident What is your race?: or origin or descent Mini Mental State Exam (MMSE) Orientation What is the (year) (season) (date) (day) (month)?: day Score Score: 1 Activity of Daily Living Bathing - sponge bath, tub bath or shower: receives help in bathing only one body part (such as back or leg) Dressing - getting clothes from closets & drawers, including inner/outer garments & fasteners.: gets clothes & gets dressed without help, except for help tying shoes Toileting - going to the 'toilet room' for urine/bowel elimination & cleaning self/arranging clothes: goes to toilet room, cleans self, arranges clothes without help Transfer: moves in & out of bed and chair without help (may use support object) Continence: controls urination/bowel movements completely by self Feeding: feeds self without help Total Score: 0 Information obtained from: patient Using telephone: independent Traveling: dependent Shopping: dependent Preparing meals: dependent Housework: dependent Taking medicine: needs assistance Managing money: needs assistance PHQ-9 Over the last 2 weeks, how often have you been bothered by any of the following problems? 1. Little interest or pleasure in doing things: not at all 2. Feeling down, depressed, or hopeless: not at all 3. Trouble falling or staying asleep, or sleeping too much: several days 4. Feeling tired or having little energy: several days 5. Poor appetite or overeating: not at all 6. Feeling bad about yourself - or that you are a failure or have let yourself or your family down: not at all 7. Trouble concentrating on things, such as reading the newspaper or watching television: several days 8. Moving or speaking so slowly that other people could have noticed. Or the opposite - being so fidgety or restless that you have been moving around a lot more than usual: several days 9. Thoughts that you would be better off or of hurting yourself in some way: not at all Total score: 4 Depression Screening Interpretation: Negative Depression Screening Done: Yes 95510 - PHQ-9 Billing: Yes Source: Developed by Drs. Iggy Kelly, Ivett Easley, Chinmay Gutierrez and colleagues, with an educational darryn from [email or web address]. Physical Exam Vital Signs: Last Vital Signs Pulse 80 02/07/23 15:37 BP 146/90 H 02/07/23 15:37 Pulse Ox 99 02/07/23 15:37 Oxygen Delivery Method Room Air 02/07/23 15:37 BMI result Body Mass Index 30.0 Const General: cooperative and no acute distress Orientation/consciousness: oriented to person and oriented to place HEENT Other: Whisper test: pass Neuro Other: Balance: Normal - patient ambulates with a cane Get up and walk: unable to Romberg: negative Tandem gait: unable to General: oriented to person and oriented to place Assessment & Plan Assessment & Plan (1) Adult general medical exam: Code(s): Z00.00 - Encounter for general adult medical examination without abnormal findings (2) Screening for colon cancer: Code(s): Z12.11 - Encounter for screening for malignant neoplasm of colon (3) Prostate cancer: Code(s): C61 - Malignant neoplasm of prostate Plan: History of prostatectomy and patient is followed by Urology for PSA checks. (4) Parkinsons disease: Code(s): G20 - Parkinson's disease Plan: Patient is followed by neurology Dr. Jacob (5) Mixed hyperlipidemia: Code(s): E78.2 - Mixed hyperlipidemia Plan: Continue current treatment. Reinforced low-cholesterol diet. (6) Essential hypertension: Code(s): I10 - Essential (primary) hypertension Plan: Continue current treatment. Reinforced low-sodium diet. (7) GERD (gastroesophageal reflux disease): Code(s): K21.9 - Gastro-esophageal reflux disease without esophagitis Qualifiers: Esophagitis presence: esophagitis presence not specified Qualified Code(s): K21.9 - Gastro-esophageal reflux disease without esophagitis Plan: Continue current treatment. Encouraged to avoid GERD trigger foods. (8) Overactive bladder: Code(s): N32.81 - Overactive bladder Plan: Continue to follow-up with urology Dr. Gonzales (9) Chronic pain syndrome: Code(s): G89.4 - Chronic pain syndrome Plan: Continue Tylenol, diclofenac cream as prescribed (10) Gout: Comment: abrupt onset of multiple painful and swollen joints including his elbows and wrists. multiple attacks over 1-2 months Initial uric acid level 8.2 4/ Allopurinol 200 mg 07/10 colchicine DC 12/2022 Code(s): M10.9 - Gout, unspecified Qualifiers: Gout site: multiple sites Gout etiology: idiopathic Chronicity: chronic Presence of tophus: without tophus Qualified Code(s): M1A.09X0 - Idiopathic chronic gout, multiple sites, without tophus (tophi) Plan: Continue to follow-up with rheumatology Orders: Referrals Gastroenterology Referral Z12.11 - Encounter for screening for malignant neoplasm of colon Quality Reporting (2019) Adult ([facility] 138/2/22/69) Smoking risk assessment performed?: Yes Patient Tobacco Use Status: Never used Tobacco Depression/Bipolar (159/160/161/177) PHQ-9: Total score: 4 Coding Level of Care Code Medicare Subsequent (G0439) Diagnoses Adult general medical exam Z00.00 Screening for colon cancer Z12.11 Prostate cancer C61 Parkinsons disease G20 Mixed hyperlipidemia E78.2 Essential hypertension I10 Gastroesophageal reflux disease, unspecified whether esophagitis present K21.9 Esophagitis presence: esophagitis presence not specified Overactive bladder N32.81 Chronic pain syndrome G89.4 Idiopathic chronic gout of multiple sites without tophus M1A.09X0 Gout site: multiple sites Gout etiology: idiopathic Chronicity: chronic Presence of tophus: without tophus CPT Codes Advance Care Planning - Time spent: 1-15 minutes, not on file ([id number]) Advance Care Planning Date of discussion: 02/07/23 Who was present: pt, daughter, growth media mixer mushroom Forms completed: None Time spent: 1-15 minutes, not on file Actual minutes spent: 3 Did not discuss due to Cultural/Spiritual beliefs: No
== END 2023-02-07 16:27 | disposition home or self-care (01) ==
PROVIDERS: PCP Internal Medicine; Visit Provider Nurse Practitioner Family
DX: Z00.00 Encounter for general adult medical examination without abnormal findings (principal); Z12.11 Encounter for screening for malignant neoplasm of colon; C61 Malignant neoplasm of prostate; G20.A1 Parkinson's disease without dyskinesia, without mention of fluctuations; E78.2 Mixed hyperlipidemia; I10 Essential (primary) hypertension; K21.9 Gastro-esophageal reflux disease without esophagitis; N32.81 Overactive bladder; G89.4 Chronic pain syndrome; M1A.09X0 Idiopathic chronic gout, multiple sites, without tophus (tophi)
CPT/HCPCS: 1124F; G0439

== ENCOUNTER 2023-05-08 07:17 | Outpatient (REF) | payer MEDICARE, MEDICAID, SELFPAY ==
[2023-05-08 07:37] LABS: MANUAL DIFF FLAG NO
[2023-05-08 08:23] LABS: Basophils Percent Auto 0.4 % (0-2); Eosinophils Absolute Auto 0.2 X10*3/uL (0.0-0.4); Eosinophils Percent Auto 3.5 % (0-4); Hematocrit 40.7 % (42.0-52.0); Hemoglobin 13.9 g/dl (14.0-18.0); Imm Gran Abs Auto 0.02 X10*3/uL (0.00-0.03); Imm Gran Pct Auto 0.4 % (0.0-0.4); Lymphocytes Absolute Auto 1.1 X10*3/uL (1.2-4.9); Lymphocytes Percent Auto 23.5 % (20-40); Mean Corpuscular HGB Conc 34.2 g/dl (31.0-36.0); Mean Corpuscular Hemoglobin 31.2 pg (27.0-33.0); Mean Corpuscular Volume 91.3 fL (80.0-98.0); Mean Platelet Volume 12.3 fL (9.4-12.4); Monocytes Absolute Auto 0.4 X10*3/uL (0.1-1.2); Monocytes Percent Auto 8.7 % (2-11); Neutrophils Absolute Auto 3.1 x10*3/uL (2.0-8.3); Neutrophils Percent Auto 63.5 % (45-73); Platelet Count 164 X10*3/uL (160-400); Red Blood Count 4.46 X10*6/uL (4.60-5.80); White Blood Count 4.8 X10*3/uL (4.8-10.8)
[2023-05-08 09:00] LABS: Alanine Aminotransferase 7 U/L (0-40); Albumin Level 4.5 g/dL (3.5-5.0); Alkaline Phosphatase 60 U/L (39-117); Anion Gap 15 (12-20); Aspartate Amino Transferase 19 U/L (5-37); Bilirubin Total 0.6 mg/dL (0.0-1.0); Blood Urea Nitrogen 23 mg/dL (9-16); Calcium 9.6 mg/dL (8.4-10.2); Carbon Dioxide 22 mmol/L (22-29); Chloride 105 mmol/L (96-108); Estimated Glomerular Filt Rate > 60; Glucose Random 122 mg/dL (60-115); Potassium 3.9 mmol/L (3.3-5.1); Sodium 138 mmol/L (135-145); Total Protein 7.3 g/dL (6.5-8.0)
[2023-05-08 09:19] LABS: Uric Acid 4.8 mg/dL (3.4-7.0)
== END 2023-05-08 07:18 | disposition home or self-care (01) ==
LOC: HO.LAB 07:17
PROVIDERS: PCP Internal Medicine; Visit Provider Student in an Organized Health Care Education/Training Program
DX: M10.9 Gout, unspecified (principal)
CPT/HCPCS: 36415; 80053; 84550; 85025

== ENCOUNTER 2023-05-10 13:18 | Outpatient (AMB) | payer MEDICARE, SELFPAY ==
[2023-05-10 13:23] VITALS: BP 146/84; PULSE 68; O2SAT 97; BMI 30.3
--- NOTE | 2023-05-10 13:23 | A.OFFVIS_ITS ---
Intake Vital Signs 05/10/23 13:23 Height 5 ft 11 in Weight 217 lb 9.54 oz BMI 30.3 BP 146/84 H Blood Pressure Location Rt brachial Position Sitting Pulse 68 Pulse Source Pulse Oximeter Pulse Oximetry (%) 97 Oxygen Delivery Method Room Air Intake Visit Reasons: Gout Intake Note: Patient last seen 12/30/22 presents today for follow up and test results. Operations Support Professionals Required: No Accompanied by: Self / Same As Patient Allergies pravastatin Allergy (Intermediate, Verified 05/10/23 13:25) dry mouth Medication List - Last Reconciled 05/10/23 by Yahaira Mallory MD acetaminophen 500 mg PO Q6H PRN allopurinol 200 mg (2 x 100 mg) PO DAILY atorvastatin 40 mg PO DAILY bisacodyl (Dulcolax (bisacodyl)) 10 mg (2 x 5 mg) PO ONCE 2 days carbidopa-levodopa 25-100 mg 2 tabs PO BID cholecalciferol (vitamin D3) 25 mcg PO DAILY 90 days clonazepam 0.5 mg PO BEDTIME diclofenac sodium 1% (Voltaren Arthritis Pain) 2 grams topical QID fenofibrate 54 mg PO DAILY 90 days furosemide 20 mg PO DAILY 90 days hydrochlorothiazide 25 mg PO DAILY lidocaine 4% (Aspercreme (lidocaine)) 1 patch topical DAILY PRN lisinopril 40 mg PO DAILY 90 days meclizine 25 mg PO TID PRN 7 days mirabegron ER (Myrbetriq) 25 mg PO DAILY 90 days omeprazole 20 mg PO DAILY 90 days polyethylene glycol 3350 (Miralax) 17 grams PO DAILY 1 day pramipexole 0.5 mg PO TID trihexyphenidyl mg PO walker walker with seat and wheels HPI HPI Comments History of Present Illness0 Details 77-year-old male with gout returns [facility] with his daughter for follow-up. Compliant with allopurinol 200 mg rich. No gout flare-up for many months. States that recently he has been having some weakness of his knees. Feels that his knees give up. Has not had any falls. Initial history: This is a 77-year-old male with past medical history of Parkinson's who is referred for evaluation of left elbow pain. Patient is here with his daughter she stated that 2-3 months ago patient went to [facility] due to left elbow, left wrist and left knee pain and swelling. He had an elbow and wrist x-ray done and they were told it might be arthritis and sent home. He was taking Tylenol. Patient does not have elbow or wrist pain now. His main c omplaint is low back pain. There is no history of kidney stones. There is no known family history of gout. Patient does not consume alcohol [facility] Medical History (Updated 05/10/23 @ 13:54 by Yahaira Mallory MD) Skin lesion Left knee pain Chronic pain syndrome Sacroiliac dysfunction Sacroiliitis Spondylosis without myelopathy or radiculopathy, lumbar region Adult general medical exam Screening for colon cancer Leg edema Urgency incontinence Prostate cancer Parkinsons disease Mixed hyperlipidemia Essential hypertension GERD (gastroesophageal reflux disease) Lumbar degenerative disc disease Surgical History History of cataract surgery History of colonoscopy History of basal cell carcinoma (BCC) excision History of prostatectomy Family History Father No problems noted. Mother Diabetes Cancer Social History Housing: Apartment Alcohol intake: former Patient Tobacco Use Status: Never used Tobacco e-Cigarette/Vaping Use: Never Used Second Hand Smoke Exposure: No service: No Current occupational status: disabled Cognitive needs: Yes Hearing needs: No Vision needs: No Review of Systems Musc Reports arthralgias and Denies joint swelling Skin/Breast Reports skin ulcer Physical Exam Vital Signs: Last Vital Signs Pulse 68 05/10/23 13:23 BP 146/84 H 05/10/23 13:23 Pulse Ox 97 05/10/23 13:23 Oxygen Delivery Method Room Air 05/10/23 13:23 BMI result Body Mass Index 30.3 Const General: cooperative, healthy appearing and comfortable Nutritional Appearance: obese Limitations: no limitations HEENT Head: Yes normocephalic and Yes atraumatic Mouth: moist mucous membranes Resp Effort & Inspection: normal respiratory effort and able to speak in complete sentences Auscultation: clear to auscultation bilaterally Cardio Rate: regular rate Rhythm: regular rhythm Skin Other: Acanthosis nigricans like lesion on extensor surface of left forearm Lesions: lesion noted Extrem Other: No active synovitis. Normal range of motion of the elbows wrists hands. No tophi noted No knee pain with full flexion and extension bilaterally Negative Erik's test bilaterally Assessment & Plan Assessment & Plan (1) Gout: Comment: abrupt onset of multiple painful and swollen joints including his elbows and wrists. multiple attacks over 1-2 months Initial uric acid level 8.2 07/10 Allopurinol 200 mg 07/10 colchicine DC 12/2022 Code(s): M10.9 - Gout, unspecified Qualifiers: Gout site: multiple sites Gout etiology: idiopathic Chronicity: chronic Presence of tophus: without tophus Qualified Code(s): M1A.09X0 - Idiopathic chronic gout, multiple sites, without tophus (tophi) Plan: 77-year-old male with gout returns for follow-up. Doing well overall on allopurinol 200 mg daily. Colchicine was discontinued last visit with no gout flare-ups Continue allopurinol 200 mg daily Labs before next visit in 4 month (2) Skin lesion: Code(s): L98.9 - Disorder of the skin and subcutaneous tissue, unspecified Plan: Patient states that he was referred to a accounting systems analyst. He has history of basal cell carcinoma excision on nose (3) Bilateral primary osteoarthritis of knee: Code(s): M17.0 - Bilateral primary osteoarthritis of knee Plan: No significant signs of instability. Recommend avoid systemic NSAIDs. Can use Tylenol up to 2000 mg daily. Try [id number] Voltaren gel. Plan I spent 26 minutes reviewing patient's chart, evaluating patient, ordering diagnostic workup, counseling patient and documenting in the chart Orders: Orders Complete Blood Count Auto Diff 4 Months M10.9 - Gout, unspecified Uric Acid 4 Months M10.9 - Gout, unspecified Comprehensive Met. Panel 4 Months M10.9 - Gout, unspecified Quality Reporting (2019) Adult ([facility] 138//) Smoking risk assessment performed?: Yes Patient Tobacco Use Status: Never used Tobacco Coding Level of Care Code Est Pt Level 4 (50612) Diagnoses Idiopathic chronic gout of multiple sites without tophus M1A.09X0 Gout site: multiple sites Gout etiology: idiopathic Chronicity: chronic Presence of tophus: without tophus Skin lesion L98.9 Bilateral primary osteoarthritis of knee M17.0
== END 2023-05-10 13:41 | disposition home or self-care (01) ==
PROVIDERS: PCP Internal Medicine; Visit Provider Student in an Organized Health Care Education/Training Program
DX: M1A.09X0 Idiopathic chronic gout, multiple sites, without tophus (tophi) (principal); L98.9 Disorder of the skin and subcutaneous tissue, unspecified; M17.0 Bilateral primary osteoarthritis of knee
CPT/HCPCS: 99214

== ENCOUNTER → 2023-05-10 13:18 | Outpatient (BNVA) | payer MEDICARE, OTHER, SELFPAY | PROVIDERS: PCP Internal Medicine; Visit Provider Student in an Organized Health Care Education/Training Program | DX: M1A.09X0 Idiopathic chronic gout, multiple sites, without tophus (tophi) (principal); M17.0 Bilateral primary osteoarthritis of knee; L98.9 Disorder of the skin and subcutaneous tissue, unspecified | CPT/HCPCS: 99212 ==

== ENCOUNTER 2023-05-22 14:01 | Outpatient (AMB) | payer MEDICARE, MEDICAID, SELFPAY ==
[2023-05-22 14:17] VITALS: BP 140/90; BMI 30.3
--- NOTE | 2023-05-22 14:22 | MHC.PC.OV ---
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 Accompanied by: Grand Child Allergies pravastatin Allergy (Intermediate, Verified 05/22/23 14:57) dry mouth Medication List - Last Reconciled 05/22/23 by Susy Harrington MD acetaminophen 500 mg PO Q6H PRN allopurinol 200 mg (2 x 100 mg) PO DAILY atorvastatin 40 mg PO DAILY bisacodyl (Dulcolax (bisacodyl)) 10 mg (2 x 5 mg) PO ONCE 2 days carbidopa-levodopa 25-100 mg 2 tabs PO BID cholecalciferol (vitamin D3) 25 mcg PO DAILY 90 days clonazepam 0.5 mg PO BEDTIME diclofenac sodium 1% (Voltaren Arthritis Pain) 2 grams topical QID fenofibrate 54 mg PO DAILY 90 days furosemide 20 mg PO DAILY 90 days hydrochlorothiazide 25 mg PO DAILY lidocaine 4% (Aspercreme (lidocaine)) 1 patch topical DAILY PRN lisinopril 40 mg PO DAILY 90 days meclizine 25 mg PO TID PRN 7 days mirabegron ER (Myrbetriq) 25 mg PO DAILY 90 days omeprazole 20 mg PO DAILY 90 days polyethylene glycol 3350 (Miralax) 17 grams PO DAILY 1 day pramipexole 0.5 mg PO TID trihexyphenidyl mg PO walker walker with seat and wheels Tobacco use date assessed: 05/22/23 Fall risk assessment: No Falls in past year Last assessed Fall Risk: 05/22/23 Dental Screening Dental Screen Date: 05/22/23 Did you have a dental visit in the last 12 months?: No Did you have a dental problem in the last 6 months where you did not have access to dental care?: No Was dental information given to patient?: Patient has dentist HPI HPI Comments History of Present Illness Details This is a 77-year-old male with Parkinson's disease, mixed hyperlipidemia, hypertension, GERD and sacroiliitis that comes today accompanied by granddaughter for follow-up on his conditions. 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 He follows with Neurology and would like a 2nd opinion. Lipid panel will be order and his compliant with statins and fibrates. Blood pressure stable. GERD stable with PPIs. Complains of low back pain secondary to sacroiliitis and is follow by pain management. No chest pain or shortness on breath. He is but lives alone and the is the neighbor. He would like an apartment with her but with 2 bedrooms. [facility] Medical History (Updated 05/22/23 @ 15:20 by Susy Harrington MD) CKD (chronic kidney disease) stage 3, GFR 30-59 ml/min Skin lesion Left knee pain Chronic pain syndrome Sacroiliac dysfunction Sacroiliitis Spondylosis without myelopathy or radiculopathy, lumbar region Adult general medical exam Screening for colon cancer Leg edema Urgency incontinence Prostate cancer Parkinsons disease Mixed hyperlipidemia Essential hypertension GERD (gastroesophageal reflux disease) Lumbar degenerative disc disease Surgical History History of cataract surgery History of colonoscopy History of basal cell carcinoma (BCC) excision History of prostatectomy Family History Father No problems noted. Mother Diabetes Cancer Social History Housing: Apartment Alcohol intake: former Patient Tobacco Use Status: Never used Tobacco e-Cigarette/Vaping Use: Never Used Second Hand Smoke Exposure: No service: No Current occupational status: disabled Cognitive needs: Yes Hearing needs: No Vision needs: No Questionnaire PHQ-9 Over the last 2 weeks, how often have you been bothered by any of the following problems? 1. Little interest or pleasure in doing things: not at all 2. Feeling down, depressed, or hopeless: not at all 3. Trouble falling or staying asleep, or sleeping too much: more than half the days 4. Feeling tired or having little energy: not at all 5. Poor appetite or overeating: not at all 6. Feeling bad about yourself - or that you are a failure or have let yourself or your family down: not at all 7. Trouble concentrating on things, such as reading the newspaper or watching television: not at all 8. Moving or speaking so slowly that other people could have noticed. Or the opposite - being so fidgety or restless that you have been moving around a lot more than usual: not at all 9. Thoughts that you would be better off or of hurting yourself in some way: not at all Total score: 2 Depression Screening Interpretation: Negative Depression Screening Done: Yes 72634 - PHQ-9 Billing: Yes Source: Developed by Drs. Iggy Kelly, Ivett Easley, Chinmay Gutierrez and colleagues, with an educational darryn from [employer]. Thrive Questionnaire Date Thrive assessed: 05/22/23 I am a: Patient What is your living situation today?: I have a steady place to live Within the past 12 months, did the food you bought not last and you didn't have the money to get more?: Never true Within the past 12 months, did you worry whether your food would run out before you got money to buy more?: Never true Do you have trouble paying for medicines?: No Do you have trouble getting transportation to medical appointments?: No Do you have trouble paying your heating and electricity bill?: No Do you have trouble taking care of your child, family member or friend?: No Do you have trouble with day-to-day activities such as bathing, preparing meals, shopping, managing finances, etc.?: Yes Are you currently unemployed and looking for a job?: No Are you interested in more education?: No Please select the resources that you would like help with: None Currently or been in a relationship where the following occur: no concerns reported THRIVE Score: 0 AUDIT C Alcohol Use Questionnaire (AUDIT-C) 1. How often do you have a drink containing alcohol?: Never Total Score: 0 DULCE-7 AMB Questionnaire DULCE-7 Date DULCE - 7 assessed: 05/22/23 Feeling nervous, anxious, or on edge: 0 = Not at all Not being able to stop or control worryin = Not at all Worrying too much about different things: 0 = Not at all Trouble relaxin = Not at all Being so restless that it is hard to sit still: 0 = Not at all Becoming easily annoyed or irritable: 0 = Not at all Feeling afraid as if something awful might happen: 0 = Not at all Total DULCE-7 score (0-4 normal; 5-9 mild; 10-14 moderate; 15-21 severe): 0 Source: Developed by Drs. Iggy Kelly, Ivett Easley, Chinmay Gutierrez and colleagues, with an educational darryn from [employer]. DULCE-7 Assessment Billing DULCE-7 Assessment Tool: DULCE-7 Assessment 95661 Review of Systems Const All systems reviewed & are unremarkable except as noted in HPI and below Eyes Reports no additional complaints, Denies change in vision and Denies other visual disturbances Card Denies chest pain at rest, Denies chest pain with activity, Denies edema, Denies irregular heart rhythm, Denies claudication, Denies dyspnea, Denies dyspnea on exertion, Denies orthopnea, Denies paroxysmal nocturnal dyspnea and Denies slow heart rate Resp Denies cough, Denies dyspnea and Denies dyspnea on exertion GI Denies abdominal pain, Denies change in bowel habits, Denies excessive flatus, Denies nausea and Denies vomiting Denies urinary hesitancy, Denies urinary incontinence and Denies urinary urgency Physical exam (Primary Care) Vital Signs: Last Vital Signs BP 140/90 H 05/22/23 14:17 BMI result Body Mass Index 30.3 Tobacco/Smoking Status: Tobacco use Status Tobacco use date assessed 05/22/23 05/22/23 14:31 Patient Tobacco Use Status Never used Tobacco 05/22/23 14:28 e-Cigarette/Vaping Use Never Used 05/22/23 14:28 PHQ-9: PHQ-9 Score PHQ-9: Total score 2 05/22/23 15:01 Depression Screening Interpretation: Negative Thrive Assessment: Date of Thrive Assessment Date Thrive assessed 05/22/23 05/22/23 14:28 Currently or been in a relationship where the following occur: no concerns reported Const Orientation/consciousness: patient oriented x3 HENMT Head: Yes normal to inspection, Yes normocephalic and Yes atraumatic Ears: external ears normal Eyes General: appearance normal, both eyes and all related structures Eyelids: Yes eyelids normal Conjunctivae: conjunctivae normal Neck Neck: Yes normal visual inspection and Yes supple Resp Effort & Inspection: normal respiratory effort Auscultation: clear to auscultation bilaterally Cardio Jugular venous distension: no JVD Rate: regular rate Rhythm: regular rhythm Heart sounds: S1 normal heart sound present and S2 normal heart sound present Neuro General: patient oriented x3 and no focal motor deficits Motor exam (neuro): Tremors during motor activity present bilateral upper extremity resting tremor Extrem General: Yes full ROM Psych Appearance: grossly normal Assessment and Plan Assessment & Plan (1) Parkinsons disease: Code(s): G20 - Parkinson's disease Qualifiers: Dyskinesia presence: with dyskinesia Fluctuating manifestations: with fluctuating manifestations Qualified Code(s): G20.B2 - Parkinson's disease with dyskinesia, with fluctuations Plan: Continue carbidopa-levodopa. Follow-up with Neurology. Continue pramipexole. (2) Essential hypertension: Code(s): I10 - Essential (primary) hypertension Plan: Continue lisinopril. Blood pressure goal is equal or less than 130/80. (3) Mixed hyperlipidemia: Code(s): E78.2 - Mixed hyperlipidemia Plan: Continue statins and fibrates. (4) GERD (gastroesophageal reflux disease): Code(s): K21.9 - Gastro-esophageal reflux disease without esophagitis Qualifiers: Esophagitis presence: esophagitis presence not specified Qualified Code(s): K21.9 - Gastro-esophageal reflux disease without esophagitis Plan: Continue PPIs. (5) Sacroiliitis: Code(s): M46.1 - Sacroiliitis, not elsewhere classified Plan: Follow-up with pain management. Orders: Orders Comprehensive [facility]. Panel Fast Today N18.30 - Chronic kidney disease, stage 3 unspecified Lipid Panel Today E78.5 - Hyperlipidemia, unspecified Referrals Neurology Referral G20 - Parkinson's disease Coding Level of Care Code Est Pt Level 4 (22294) Diagnoses Parkinson's disease with dyskinesia and fluctuating manifestations G20.B2 Dyskinesia presence: with dyskinesia Fluctuating manifestations: with fluctuating manifestations Essential hypertension I10 Mixed hyperlipidemia E78.2 Gastroesophageal reflux disease, unspecified whether esophagitis present K21.9 Esophagitis presence: esophagitis presence not specified Sacroiliitis M46.1 Additional Codes DULCE-7 Assessment Billing - DULCE-7 Assessment Tool: DULCE-7 Assessment 54793 ([id number]) Time Spent (min) 22
[2023-05-22 15:15] VITALS: BP 138/82
== END 2023-05-22 15:13 | disposition home or self-care (01) ==
PROVIDERS: PCP Internal Medicine; Visit Provider Internal Medicine
DX: I12.9 Hypertensive chronic kidney disease with stage 1 through stage 4 chronic kidney disease, or unspecified chronic kidney disease (principal); N18.30 Chronic kidney disease, stage 3 unspecified; M46.1 Sacroiliitis, not elsewhere classified; G20.B2 Parkinson's disease with dyskinesia, with fluctuations; E78.2 Mixed hyperlipidemia; K21.9 Gastro-esophageal reflux disease without esophagitis
CPT/HCPCS: 99214

== ENCOUNTER 2023-08-03 06:32 | Outpatient (REF) | payer MEDICARE, MEDICAID, SELFPAY ==
[2023-08-03 07:51] LABS: Appearance Urine Clear; Color Urine Yellow; Glucose Urine UA Negative (Negative); Leukocyte Esterase Urine Negative (Negative); Nitrite Urine Negative (Negative); PH 7.5 (5.0-9.0); Specific Gravity - Urine 1.015 (1.005-1.025); Urine Blood Negative (Negative); Urine Ketones Negative (Negative); Urine Protein Negative (Neg-Trace)
[2023-08-03 08:25] LABS: Alanine Aminotransferase < 5 U/L (0-40); Albumin Level 4.7 g/dL (3.5-5.0); Alkaline Phosphatase 68 U/L (39-117); Anion Gap 14 (12-20); Aspartate Amino Transferase 16 U/L (5-37); Bilirubin Total 0.7 mg/dL (0.0-1.0); Blood Urea Nitrogen 27 mg/dL (9-16); Calcium 9.8 mg/dL (8.4-10.2); Carbon Dioxide 25 mmol/L (22-29); Chloride 105 mmol/L (96-108); Cholesterol 152 mg/dL (<200); Estimated Glomerular Filt Rate 56; Glucose Fasting 122 mg/dL (60-99); HDL Cholesterol 47 mg/dL (>40); LDL Cholesterol Calculated 87 mg/dL (<100); Potassium 3.6 mmol/L (3.3-5.1); Sodium 140 mmol/L (135-145); Total Protein 7.7 g/dL (6.5-8.0); Triglycerides 93 mg/dL (<150)
== END 2023-08-03 06:33 | disposition home or self-care (01) ==
LOC: HO.LAB 06:32
PROVIDERS: PCP Internal Medicine; Visit Provider Internal Medicine
DX: E78.5 Hyperlipidemia, unspecified (principal); R30.0 Dysuria; N18.30 Chronic kidney disease, stage 3 unspecified
CPT/HCPCS: 36415; 80053; 80061; 81003

== ENCOUNTER 2023-08-18 10:38 | Emergency (ER) | payer MEDICARE, MEDICAID, SELFPAY ==
--- NOTE | ~2023-08-18 | CT_ITS ---
EXAMINATION: CT HEAD WITHOUT CONTRAST CLINICAL INFORMATION: Altered mental status. COMPARISON: Head CT dated 09/21/2020. TECHNIQUE: Contiguous axial imaging was performed from the skullbase to vertex without intravenous administration of contrast. This CT examination was performed using dose optimization techniques as appropriate, variously including the following: *Automated exposure control *Adjustment of mA and/or kV according to patient size (this includes techniques or standardized protocols for targeted exams where dose is matched to indication/reason for exam; i.e. extremities or head) *Use of iterative reconstruction technique DLP: 696 mGy-cm. FINDINGS: There is no evidence of acute intracranial hemorrhage or territorial infarction. No abnormal mass effect or midline shift is seen. No extra-axial fluid collections are identified. The ventricles are normal in size. There is no abnormal attenuation within the brain parenchyma. The osseous structures and soft tissues are normal. The mastoid air cells are well aerated. There is complete soft tissue opacification of the right maxillary sinus protrusion of soft tissue density into the middle meatus, new compared to previous imaging. Some small high attenuation foci are seen within the sinus cavity as well. Mild right maxillary sinus wall thickening also evident from chronic inflammatory disease. There is mild mucosal thickening in the ethmoid air cells. CT/CT head/brain wo IV con IMPRESSION: No acute intracranial hemorrhage or territorial infarction. Complete soft tissue opacification of the right maxillary sinus with chronic sclerotic wall thickening. Protrusion of soft tissue into the right middle meatus as well. Small high attenuation foci within the sinus cavity may be due to proteinaceous content. The possibility of a maxillary sinus mass, underlying mycetoma or an acute on chronic infectious/inflammatory process cannot be ruled out. Clinical correlate. Additionally, follow-up ENT consultation is recommended to guide further management.
--- NOTE | ~2023-08-18 | XR_ITS ---
EXAMINATION: XR CHEST CLINICAL INFORMATION: Confusion COMPARISON: 08/22/2020 TECHNIQUE: 2 views of the chest were obtained. FINDINGS: No significant abnormality is noted involving the heart, lungs, mediastinum, bony thorax or soft tissues. XR/XR chest 2V IMPRESSION: Unremarkable examination.
[2023-08-18 10:42] VITALS: BP 139/85; PULSE 82; RESP 20; TEMP 36.7; O2SAT 97; BMI 32.2
[2023-08-18 11:05] LABS: MANUAL DIFF FLAG NO
[2023-08-18 11:06] LABS: Appearance Urine Clear; Color Urine Yellow; Glucose Urine UA Negative (Negative); Leukocyte Esterase Urine Negative (Negative); Nitrite Urine Negative (Negative); Specific Gravity - Urine 1.015 (1.005-1.025); Urine Blood Negative (Negative); Urine Ketones Negative (Negative); Urine Protein Negative (Neg-Trace)
[2023-08-18 11:08] LABS: Basophils Percent Auto 0.1 % (0-2); Eosinophils Absolute Auto 0.1 X10*3/uL (0.0-0.4); Eosinophils Percent Auto 1.1 % (0-4); Imm Gran Abs Auto 0.02 X10*3/uL (0.00-0.03); Imm Gran Pct Auto 0.3 % (0.0-0.4); Lymphocytes Absolute Auto 1.1 X10*3/uL (1.2-4.9); Lymphocytes Percent Auto 15.6 % (20-40); Mean Corpuscular HGB Conc 34.1 g/dl (31.0-36.0); Mean Corpuscular Hemoglobin 32.3 pg (27.0-33.0); Mean Corpuscular Volume 94.5 fL (80.0-98.0); Mean Platelet Volume 11.8 fL (9.4-12.4); Monocytes Absolute Auto 0.5 X10*3/uL (0.1-1.2); Monocytes Percent Auto 7.5 % (2-11); Neutrophils Absolute Auto 5.5 x10*3/uL (2.0-8.3); Neutrophils Percent Auto 75.4 % (45-73); Platelet Count 183 X10*3/uL (160-400); Red Blood Count 4.34 X10*6/uL (4.60-5.80); Red Cell Distribution Width 13.6 % (11.0-16.0); White Blood Count 7.2 X10*3/uL (4.8-10.8)
[2023-08-18 11:20] LABS: Alanine Aminotransferase 9 U/L (0-40); Albumin Level 4.6 g/dL (3.5-5.0); Alkaline Phosphatase 66 U/L (39-117); Anion Gap 14 (12-20); Aspartate Amino Transferase 18 U/L (5-37); Bilirubin Direct 0.3 mg/dL (0.0-0.5); Bilirubin Total 0.8 mg/dL (0.0-1.0); Blood Urea Nitrogen 16 mg/dL (9-16); Calcium 9.9 mg/dL (8.4-10.2); Carbon Dioxide 26 mmol/L (22-29); Chloride 106 mmol/L (96-108); Estimated Glomerular Filt Rate > 60; Glucose Random 113 mg/dL (60-115); Lipase 13 U/L (8-78); Potassium 3.6 mmol/L (3.3-5.1); Sodium 142 mmol/L (135-145); Total Protein 7.6 g/dL (6.5-8.0)
--- NOTE | 2023-08-18 13:03 | PC.NURSE ---
Patient presents with family members for increased confusion and patient wandering away during the night. Family states that some days patient is okay but other days he can become more aggressive towards his and family. Family found patient recently wandering around outside sweating because he had been walking around looking for sons house.
--- NOTE | 2023-08-18 13:16 | ED.AMS ---
HPI - Altered Mental Status General Chief Complaint: Altered Mental Status Stated Complaint: running away , has dementia and Parkinson Time Seen by Provider: 08/18/23 12:45 Source: patient and family Mode of arrival: ambulatory Limitations: other (poor historian ) History of Present Illness ED Provider: Stephanie MOROCHO HPI narrative: 78 year old male hx of hypertension, mixed hyperlipidemia, GERD, dementia and Parkinson's disease presents for evaluation of worsening confusion x few days. Patient lives home alone he has been leaving his house at night and going to family members homes confused. He isnt complaing of this now but family reports patient was complaining of shakiness and feeling dizzy at one point. Patient is confused not oriented to person, place, time or situation. He is intermittently following commands and is pleasantly confused. Related Data Home Medications ?Medication ?Instructions ?Recorded ?Confirmed pramipexole 0.5 mg tablet 0.5 mg PO TID 03/18/20 05/22/23 clonazepam 0.5 mg tablet 0.5 mg PO BEDTIME 06/07/21 05/22/23 hydrochlorothiazide 25 mg tablet 25 mg PO DAILY 07/08/22 05/22/23 Previous Rx's ?Medication ?Instructions ?Recorded lidocaine 4 % topical patch 1 patch topical DAILY PRN pain #15 03/16/21 (Aspercreme (lidocaine)) ea acetaminophen 500 mg tablet 500 mg PO Q6H PRN pain #30 tabs 09/07/21 diclofenac sodium 1 % topical gel 2 g topical QID #100 grams 09/07/21 (Voltaren Arthritis Pain) bisacodyl 5 mg tablet,delayed 10 mg (2 x 5 mg) PO ONCE 2 days #4 03/24/22 release (Dulcolax (bisacodyl)) tabs polyethylene glycol 3350 17 17 g PO DAILY 1 day #238 grams 03/24/22 gram/dose oral powder (Miralax) walker #1 ea 05/12/22 furosemide 20 mg tablet 20 mg PO DAILY 90 days #90 tabs 01/08/23 omeprazole 20 mg capsule,delayed 20 mg PO DAILY 90 days #90 caps 02/07/23 release atorvastatin 40 mg tablet 40 mg PO DAILY #90 tabs 02/20/23 lisinopril 40 mg tablet 40 mg PO DAILY 90 days #90 tabs 03/06/23 cholecalciferol (vitamin D3) 25 25 mcg PO DAILY 90 days #90 caps 04/17/23 mcg (1,000 unit) capsule allopurinol 100 mg tablet 200 mg (2 x 100 mg) PO DAILY #180 07/11/23 tabs carbidopa 25 mg-levodopa 100 mg 2 tab PO BID 90 days #360 tabs 07/25/23 tablet mirabegron 25 mg tablet,extended 25 mg PO DAILY 90 days #90 tabs 07/25/23 release 24 hr (Myrbetriq) meclizine 25 mg tablet 25 mg PO TID PRN dizziness 7 days 07/26/23 #21 tabs fenofibrate 54 mg tablet 54 mg PO DAILY 90 days #90 tabs 08/14/23 zolpidem 5 mg tablet 5 mg PO BEDTIME PRN sleep 30 days 08/18/23 #30 tabs Allergies Allergy/AdvReac Type Severity Reaction Status Date / Time pravastatin Allergy Intermediate dry mouth Verified 08/18/23 10:46 Review of Systems Review of Systems: Yes all other systems are reviewed and are negative [facility] Past Medical History Attestation statement: The following information was validated with the patient. Source: old records reviewed and nursing notes reviewed Medical History CKD (chronic kidney disease) stage 3, GFR 30-59 ml/min Skin lesion Left knee pain Chronic pain syndrome Sacroiliac dysfunction Sacroiliitis Spondylosis without myelopathy or radiculopathy, lumbar region Adult general medical exam Screening for colon cancer Leg edema Urgency incontinence Prostate cancer Parkinsons disease Mixed hyperlipidemia Essential hypertension GERD (gastroesophageal reflux disease) Lumbar degenerative disc disease Surgical History History of cataract surgery History of colonoscopy History of basal cell carcinoma (BCC) excision History of prostatectomy Family History Family History Father No problems noted. Mother Diabetes Cancer Social History Social History Housing: Apartment Alcohol intake: former Patient Tobacco Use Status: Never used Tobacco Smoked in Last 30 Days: No e-Cigarette/Vaping Use: Never Used Second Hand Smoke Exposure: No Use of substances other than those prescribed or required for medical reasons: No Advance Directives: No Advance Directives Information Provided: Yes Do you have a plan to hurt others: No Plan service: No Current occupational status: disabled Cognitive needs: Yes Hearing needs: No Vision needs: No Physical Exam ED Vital Signs: Vital Signs - 24 hr 08/18/23 10:42 08/18/23 13:18 08/18/23 14:08 Temperature 98.1 F 98.5 F Pulse Rate 82 72 75 Respiratory Rate 20 17 Blood Pressure 139/85 157/88 H 184/97 H Pulse Oximetry 97 96 Oxygen Delivery Method Room Air Room Air 08/18/23 14:08 08/18/23 14:08 Temperature Pulse Rate 79 93 Respiratory Rate Blood Pressure 188/89 H 185/90 H Pulse Oximetry Oxygen Delivery Method BMI result Body Mass Index 32.2 vss Appearance: Alert.? Oriented to person, not place, time or situation.? No acute distress.? Head: Normocephalic, atraumatic, no step-offs or deformities Eyes: Pupils equal, round and reactive to light.? CVS: Normal heart rate and rhythm.? Pulses normal.? Respiratory: No respiratory distress.? Breath sounds normal.? Abdomen: Soft and nontender.? Skin: Skin warm and dry.? Normal skin color.? Normal skin turgor.? Extremities: No lower extremity edema.? No calf ttp. 5/5 strength to bilateral upper and lower extremities Neuro: Oriented to person, not place, time or situation.?No motor deficit.? No sensory deficit. CN 2-12 intact Course Reevaluation(s) Reevaluation #1: CBC no acute findings. Chemistry no acute electrolyte abnormalities requiring intervention. TSH normal. UA no acute infection. CT head pending. Plan at this time as physical therapy and case management. Will also add care team ? dillon psych component At this time patient to be placed into observation to allow more time to be evaluated by physical therapy and case management. At time observation started patient common cooperative no acute distress will continue to monitor. Time: 14:49 Medical Decision Making Medical Decision Making [facility] Narrative: 1317 78 yo m presents w/ worsening confusion w/ family . Patient alert to person not place time or situation. Poor historian. Exam benign other than oriented only to self. Pleasantly confused History and physical exam concerning for worsening dementia. Will rule out electrolyte abnormalities, anemia. Unlikely intracranial hemorrhage, stroke, posterior stroke will also rule out UTI. Although unlikely based off history and physical exam. Plan labs, imaging, case management and physical therapy. Differential Diagnosis Differential Diagnoses: The differential diagnosis associated with the presentation includes Admission/Observation Consideration of admission/observation: Escalation of care including admission/observation considered Lab Data MDM Lab Attestation statement: I reviewed the patient's lab results. 08/18/23 10:59 08/18/23 10:59 Labs: Lab Results 08/18/23 08/18/23 Range/Units 10:56 10:59 WBC 7.2 (4.8-10.8) X10*3/uL RBC 4.34 L (4.60-5.80) X10*6/uL Hgb 14.0 (14.0-18.0) g/dl Hct 41.0 L (42.0-52.0) % MCV 94.5 (80.0-98.0) fL MCH 32.3 (27.0-33.0) pg MCHC 34.1 (31.0-36.0) g/dl RDW 13.6 (11.0-16.0) % Plt Count 183 (160-400) X10*3/uL MPV 11.8 (9.4-12.4) fL Immature Gran % (Auto) 0.3 (0.0-0.4) % Neut % (Auto) 75.4 H (45-73) % Lymph % (Auto) 15.6 L (20-40) % [place] % (Auto) 7.5 (2-11) % Eos % (Auto) 1.1 (0-4) % Baso % (Auto) 0.1 (0-2) % Lymph # (Auto) 1.1 L (1.2-4.9) X10*3/uL [place] # (Auto) 0.5 (0.1-1.2) X10*3/uL Eos # (Auto) 0.1 (0.0-0.4) X10*3/uL Baso # (Auto) 0.0 (0.0-0.2) X10*3/uL Abs Immat Gran (auto) 0.02 (0.00-0.03) X10*3/uL Absolute Neuts (auto) 5.5 (2.0-8.3) x10*3/uL Absolute Nucleated RBC 0.000 (0.0-0.012) X10*3/uL Nucleated RBC % (auto) 0.0 (0.0-0.2) /100WBC Sodium 142 (135-145) mmol/L Potassium 3.6 (3.3-5.1) mmol/L Chloride 106 (96-108) mmol/L Carbon Dioxide 26 (22-29) mmol/L Anion Gap 14 (12-20) BUN 16 (9-16) mg/dL Creatinine 1.07 (0.5-1.4) mg/dL Estim Creat Clear Calc 66.0 Estimated GFR > 60 Random Glucose 113 (60-115) mg/dL Calcium 9.9 (8.4-10.2) mg/dL Total Bilirubin 0.8 (0.0-1.0) mg/dL Direct Bilirubin 0.3 (0.0-0.5) mg/dL AST 18 (5-37) U/L ALT 9 (0-40) U/L Alkaline Phosphatase 66 (39-117) U/L Total Protein 7.6 (6.5-8.0) g/dL Albumin 4.6 (3.5-5.0) g/dL Lipase 13 (8-78) U/L TSH 1.30 (0.32-4.0) uIU/mL Urine Color Yellow Urine Appearance Clear Urine pH 5.0 (5.0-9.0) Ur Specific [place] 1.015 (1.005-1.025) Urine Protein Negative (Neg-Trace) mg/dL Urine Glucose (UA) Negative (Negative) mg/dL Urine Ketones Negative (Negative) mg/dL Urine Blood Negative (Negative) Urine Nitrite Negative (Negative) Ur Leukocyte Esterase Negative (Negative) Independent Interpretation I performed an independent interpretation of an: CT Scan Radiology Impression Discussion of test interpretation with radiology: I have reviewed the radiologist's reading. Independent Historian Clinical information obtained from an independent historian. History obtained from or confirmed by: Other (family ) External Record Review External record reviewed: Inpatient record, Office record, Outpatient record, Prior outpatient labs, Prior outpatient radiology, Primary care record and Outside ED record Chronic Conditions Patient?s care impacted by: Hypertension and Other (hypertension, mixed hyperlipidemia, GERD and Parkinson's disease ) Social Determinants Patient?s care significantly limited by Social Determinants of Health including: Other Social Determinant of Health Critical Care Time Critical Care Time Critical Care Time: No Discharge Plan Discharge Clinical Impression: Physical deconditioning, Dementia Prescriptions: No Action lidocaine [Aspercreme (lidocaine)] 4 % adhesive patch,medicated 1 patch topical DAILY PRN (Reason: pain) Qty: 15 0RF furosemide 20 mg tablet 20 mg PO DAILY 90 Days Qty: 90 2RF omeprazole 20 mg capsule,delayed release(DR/EC) 20 mg PO DAILY 90 Days Qty: 90 3RF atorvastatin 40 mg tablet 40 mg PO DAILY Qty: 90 2RF lisinopril 40 mg tablet 40 mg PO DAILY 90 Days Qty: 90 1RF cholecalciferol (vitamin D3) 25 mcg (1,000 unit) capsule 25 mcg PO DAILY 90 Days Qty: 90 1RF allopurinol 100 mg tablet 200 mg PO DAILY Qty: 180 0RF Myrbetriq 25 mg tablet extended release 24 hr 25 mg PO DAILY 90 Days Qty: 90 3RF carbidopa-levodopa 25-100 mg tablet 2 tab PO BID 90 Days Qty: 360 0RF meclizine 25 mg tablet 25 mg PO TID PRN (Reason: dizziness) 7 Days Qty: 21 0RF fenofibrate 54 mg tablet 54 mg PO DAILY 90 Days Qty: 90 1RF zolpidem 5 mg tablet 5 mg PO BEDTIME PRN (Reason: sleep) 30 Days Qty: 30 0RF diclofenac sodium [Voltaren Arthritis Pain] 1 % gel 2 g topical QID Qty: 100 0RF Rx Instructions: apply to single elbow, wrist or hand; for hand includes palm/fingers/back of hand acetaminophen 500 mg tablet 500 mg PO Q6H PRN (Reason: pain) Qty: 30 0RF (DME) walker Misc See Rx Instructions .Route Qty: 1 0RF Rx Instructions: walker with seat and wheels pramipexole 0.5 mg tablet 0.5 mg PO TID bisacodyl [Dulcolax (bisacodyl)] 5 mg tablet,delayed release (DR/EC) 10 mg PO ONCE 2 Days Qty: 4 0RF Rx Instructions: Take 2 tablets at 12 pm daily starting 2 days before colonoscopy appointment polyethylene glycol 3350 [Miralax] 17 gram/dose powder 17 g PO DAILY 1 Days Qty: 238 0RF Rx Instructions: Mix Miralax with 64 oz(8 cups) of Crystal light. Take 2 tablets of Dulcolax qt 12 pm. Wait to have your 1st bowel movement, then begin drinking Miralax. Drink a glass of Miralax every 10-15 minutes until you are finished. You will drink at least another 4 cups of clear liquid of your choice over the next 2 hours. Please drink as many clear liquids as possible You may have clear liquids up to four hours before your procedure clonazepam 0.5 mg tablet 0.5 mg PO BEDTIME hydrochlorothiazide 25 mg tablet 25 mg PO DAILY Print Language: Croatian
[2023-08-18 13:18] VITALS: BP 157/88; PULSE 72; RESP 17; TEMP 36.9; O2SAT 96
[2023-08-18 14:08] VITALS: BP 184/97; BP 185/90; BP 188/89; PULSE 75; PULSE 79; PULSE 93
--- NOTE | 2023-08-18 14:13 | MHC.EDTECH ---
Daughter in law stated she was leaving for a little bit and stated if you need anything call me . The [id number]'s name is Nancy and her number is .
--- NOTE | 2023-08-18 14:20 | PC.NURSE ---
Patient blood pressure noted to be elevated in the 180's SBP, PA aware.
[2023-08-18 15:18] LABS: Ammonia 41 umol/L (13-55)
[2023-08-18 15:37] LABS: COVID-19 Test Negative (Negative); IDNOW Serial# 08D9AD1C
[2023-08-18 16:44] VITALS: BP 164/81; PULSE 81; RESP 16; TEMP 36.8; O2SAT 95
--- NOTE | 2023-08-18 17:25 | MHC.CM.ED ---
Pt met with patient at Provider request. Pt has Parkinson's and Dementia. Family is with patient. Pt and son are Canadian speaking, so buhr dresser was used. Pt knows self, his street, that he lives in an apartment. Can tell CM his son's names and his PCP. No HCP on file. HCP reviewed, completed and signed. Copies given. Uploaded into [facility]. Pt identified his sons as his HCP. HCP #1/son Onur Scott ([phone]) and HCP #2/son Aston Scott ([phone]). 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 He has a cane, which family state he does not use. There are concerned about his ambulation/shakiness. 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 Family is concerned about night wandering. They do not want LTC at this time. CM again clarified this with hot dipper and son tells CM that family is working on caring for him at home. If patient does not qualify for STR, family may be agreeable to respite care, while they arrange for more care at home. CM did not speak with family about respite care at this time. Referrals will be made locally for STR pending PT evaluation. CM will follow for discharge planning.
--- NOTE | 2023-08-18 18:37 | MHC.EDTECH ---
Patient given dinner tray
--- NOTE | 2023-08-18 19:03 | PC.NURSE ---
Assumed care of pt. Pt family at bedside. Pt with mild tremors, baseline per family. Continuing plan of care.
[2023-08-18 19:45] VITALS: BP 147/79; PULSE 80; RESP 16; TEMP 36.6; O2SAT 97
[2023-08-18] MEDS: Carbidopa/Levodopa 25/100 TABLET 2 TAB PO (20:41)
[2023-08-18] MEDS: Acetaminophen 325 MG TABLET 650 MG PO (20:41)
[2023-08-18] MEDS: Pramipexole Di-HCL 0.25 MG TABLET 0.5 MG PO (20:41)
[2023-08-18] MEDS: clonazePAM 0.5 MG TABLET PO (20:42)
[2023-08-19 01:04] VITALS: BP 147/83; PULSE 59; RESP 20; TEMP 37; O2SAT 96
--- NOTE | 2023-08-19 01:40 | MHC.EDTECH ---
This tech took over care of patient at 0100,patient is resting at this time.call frey in reach
--- NOTE | 2023-08-19 03:46 | MHC.EDTECH ---
Patient urinated 300MLS in urinal,hourly rounds completed,
[2023-08-19 06:18] VITALS: BP 161/91; PULSE 62; RESP 18; TEMP 36.6; O2SAT 96
--- NOTE | 2023-08-19 06:20 | MHC.EDTECH ---
Hourly rounds and vitals completed,patient is resting at this time,call frey in reach
[2023-08-19] MEDS: Pramipexole Di-HCL 0.25 MG TABLET 0.5 MG PO ×3 (08:46→21:47)
[2023-08-19] MEDS: Carbidopa/Levodopa 25/100 TABLET 2 TAB PO ×2 (08:47→21:47)
[2023-08-19] MEDS: Atorvastatin Calcium 40 MG TABLET PO (08:47)
[2023-08-19] MEDS: lisinopriL 40 MG TABLET PO (08:47)
[2023-08-19] MEDS: Furosemide 20 MG TABLET PO (08:47)
[2023-08-19] MEDS: Cholecalciferol (Vitamin D3) 25 MCG TABLET PO (08:47)
[2023-08-19] MEDS: allopurinoL 100 MG TABLET 200 MG PO (08:47)
[2023-08-19] MEDS: Omeprazole 20 MG CAPSULE.DR PO (08:47)
[2023-08-19] MEDS: Mirabegron 25 MG TAB.ER.24H PO (08:47)
[2023-08-19] MEDS: Fenofibrate 54 MG TABLET PO (08:48)
[2023-08-19 08:52] VITALS: BP 130/72; PULSE 65; RESP 18; TEMP 36.9; O2SAT 97
--- NOTE | 2023-08-19 08:57 | PC.NURSE ---
Alert and responsive, oob ambulating with PT , denies pain or discomfort, ate well for breakfast, vss
--- NOTE | 2023-08-19 15:32 | MHC.CM.PN ---
PT eval rec is STR. Patient does not have a 3 midnight qualifying stay for STR. Medicare and Medicaid are in place. Met with Patient +crm consultant. The insurance qualifications for STR were reviewed. T/W explained to the patient+ that the only option is home with services [facility] and [facility]. She stated that he needs strengthening. She doesnt feel that she can keep him safe at home. A referral has been sent to [facility]. A request to speak with PT/ about [facility] insurance. Referral sent las night were updated today. [facility] approval could be obtained on Monday. Once a bed offer has been secured. CM to follow.
[2023-08-19 16:29] VITALS: BP 163/75; PULSE 68; RESP 18; TEMP 37; O2SAT 97
[2023-08-19 19:08] VITALS: BP 141/88; PULSE 70; RESP 18; TEMP 36.8; O2SAT 94
[2023-08-19] MEDS: clonazePAM 0.5 MG TABLET PO (21:47)
--- NOTE | 2023-08-19 21:50 | PC.NURSE ---
pt medicated per MAY pt able to take meds whole with water
[2023-08-19 22:24] VITALS: BP 139/75; PULSE 61; RESP 18; TEMP 36.9; O2SAT 96
[2023-08-20 05:00] VITALS: BP 109/68; PULSE 66; RESP 17; TEMP 36.5; O2SAT 95
[2023-08-20 08:04] VITALS: BP 165/91
[2023-08-20] MEDS: Carbidopa/Levodopa 25/100 TABLET 2 TAB PO ×2 (08:04→22:04)
[2023-08-20] MEDS: Furosemide 20 MG TABLET PO (08:04)
[2023-08-20 08:05] VITALS: BP 165/91
[2023-08-20] MEDS: lisinopriL 40 MG TABLET PO (08:05)
[2023-08-20] MEDS: Atorvastatin Calcium 40 MG TABLET PO (08:05)
[2023-08-20] MEDS: Pramipexole Di-HCL 0.25 MG TABLET 0.5 MG PO ×3 (08:05→22:04)
[2023-08-20] MEDS: allopurinoL 100 MG TABLET 200 MG PO (08:05)
[2023-08-20] MEDS: Cholecalciferol (Vitamin D3) 25 MCG TABLET PO (08:05)
[2023-08-20] MEDS: Omeprazole 20 MG CAPSULE.DR PO (08:05)
[2023-08-20] MEDS: Fenofibrate 54 MG TABLET PO (08:12)
[2023-08-20] MEDS: Mirabegron 25 MG TAB.ER.24H PO (08:12)
[2023-08-20 08:13] VITALS: BP 165/91; PULSE 73; RESP 18; O2SAT 99
--- NOTE | 2023-08-20 08:27 | PC.NURSE ---
Pt alert and oriented, greek speaking. Denies pain or discomfort. Breathing even and unlabored. Meds given and ate breakfast 100%. VSS. Offers no complaints at this time
--- NOTE | 2023-08-20 10:06 | PC.NURSE ---
patient alert person/place, ambulatory with steady gait to bathroom, vss, lungs clear/diminished throughout, denies pain/discomfort, call frey within reach, will continue to monitor
[2023-08-20 14:00] VITALS: BP 166/94; PULSE 67; RESP 14; O2SAT 99
--- NOTE | 2023-08-20 15:30 | PC.NURSE ---
pt is alert and oriented, skin appropriate for ethnicity, respirations even and unlabored, pt denies pain at this time, took his medication with water without any difficulties pt swapped over from ed stretcher into a hospital bed for comfort
--- NOTE | 2023-08-20 20:06 | PC.NURSE ---
family at bedside, nad, denies pain/other complaints. resting comfortably. call frey within reach.
[2023-08-20 20:42] VITALS: BP 144/80; PULSE 66; RESP 16; TEMP 36.8; O2SAT 97
[2023-08-20] MEDS: clonazePAM 0.5 MG TABLET PO (22:04)
--- NOTE | 2023-08-20 23:58 | PC.NURSE ---
Assumed care of pt.
[2023-08-21 06:02] VITALS: BP 136/63; PULSE 61; RESP 16; TEMP 36.8; O2SAT 97
--- NOTE | 2023-08-21 09:15 | MHC.CM.ED ---
Patient remains in ER overflow. Family has accepted bed at [facility]. MDS completed and sent to [facility] and [facility]. Will need [facility] level[facility] from [facility] before patient will be able to transfer to [facility]. Continue to monitor for d/c needs.
[2023-08-21] MEDS: Cholecalciferol (Vitamin D3) 25 MCG TABLET PO (09:30)
[2023-08-21] MEDS: Atorvastatin Calcium 40 MG TABLET PO (09:31)
[2023-08-21] MEDS: allopurinoL 100 MG TABLET 200 MG PO (09:31)
[2023-08-21] MEDS: Carbidopa/Levodopa 25/100 TABLET 2 TAB PO ×2 (09:31→21:34)
[2023-08-21] MEDS: Fenofibrate 54 MG TABLET PO (09:31)
[2023-08-21] MEDS: Furosemide 20 MG TABLET PO (09:31)
[2023-08-21] MEDS: Omeprazole 20 MG CAPSULE.DR PO (09:31)
[2023-08-21] MEDS: Pramipexole Di-HCL 0.25 MG TABLET 0.5 MG PO ×3 (10:13→21:34)
[2023-08-21] MEDS: lisinopriL 40 MG TABLET PO (10:13)
[2023-08-21] MEDS: Mirabegron 25 MG TAB.ER.24H PO (10:16)
[2023-08-21 15:12] VITALS: BP 138/81; PULSE 66; RESP 18; O2SAT 96
[2023-08-21 18:18] VITALS: BP 122/79; PULSE 88; RESP 18; TEMP 36.5; O2SAT 94
--- NOTE | 2023-08-21 19:16 | PC.NURSE ---
This RN assumed pt car @ 1900. Pt sitting in bedside chair, no signs of distress. Pts family at bedside. Plan of care ongoing.
--- NOTE | 2023-08-21 19:58 | PC.NURSE ---
Pt back in bed, family no longer at bedside. Plan of care ongoing.
--- NOTE | 2023-08-21 20:01 | PC.NURSE ---
Pt walked with cane to the restroom. Plan of care ongoing.
--- NOTE | 2023-08-21 20:04 | PC.NURSE ---
Pt back in bed from restroom. Plan of care ongoing.
--- NOTE | 2023-08-21 20:55 | PC.NURSE ---
Mirapetrace not in [facility] called spoke with delmy.
[2023-08-21] MEDS: clonazePAM 0.5 MG TABLET PO (21:34)
--- NOTE | 2023-08-21 21:39 | PC.NURSE ---
Pt medicated per may. Plan of care ongoing.
--- NOTE | 2023-08-21 22:40 | PC.NURSE ---
Pt ambulated with cane to the restroom. Plan of care ongoing.
--- NOTE | 2023-08-21 22:42 | PC.NURSE ---
Pt resting in the bed comfortably.
[2023-08-22 06:00] VITALS: BP 142/78; PULSE 73; RESP 16; TEMP 36.6; O2SAT 98
[2023-08-22] MEDS: Omeprazole 20 MG CAPSULE.DR PO (06:01)
[2023-08-22] MEDS: Acetaminophen 325 MG TABLET 650 MG PO (06:01)
--- NOTE | 2023-08-22 06:04 | PC.NURSE ---
Pt requested and given meds for back pain. Plan of care ongoing.
--- NOTE | 2023-08-22 06:51 | PC.NURSE ---
Pt ambulated to restroom with cane and back to bedside chair.
[2023-08-22 07:13] VITALS: BP 132/75; PULSE 98; RESP 16; TEMP 36.4; O2SAT 94
--- NOTE | 2023-08-22 08:31 | MHC.CM.ED ---
Patient remains in ER. Will d/c to [facility] via BLS today at 9am. Patient, son Ariadna, Isabel HADLEY and Anne MONSALVE aware.
[2023-08-22] MEDS: Atorvastatin Calcium 40 MG TABLET PO (08:49)
[2023-08-22] MEDS: Mirabegron 25 MG TAB.ER.24H PO (08:49)
[2023-08-22] MEDS: Pramipexole Di-HCL 0.25 MG TABLET 0.5 MG PO (08:49)
[2023-08-22] MEDS: Cholecalciferol (Vitamin D3) 25 MCG TABLET PO (08:49)
[2023-08-22] MEDS: lisinopriL 40 MG TABLET PO (08:49)
[2023-08-22] MEDS: Carbidopa/Levodopa 25/100 TABLET 2 TAB PO (08:49)
[2023-08-22] MEDS: allopurinoL 100 MG TABLET 200 MG PO (08:50)
[2023-08-22] MEDS: Furosemide 20 MG TABLET PO (08:50)
[2023-08-22] MEDS: Fenofibrate 54 MG TABLET PO (08:50)
--- NOTE | 2023-08-22 09:49 | MHC.EDTECH ---
ADL Care I patient gave full bed bath. Ate 100 percent of his breakfast, patient also asst with washing up for the day.
--- NOTE | 2023-08-22 10:32 | PC.NURSE ---
Attempted to call report to [facility] x 2, unable to connect with any staff - got to the voicemail.
[2023-08-22 10:33] VITALS: BP 132/75; PULSE 98; RESP 16; TEMP 36.4; O2SAT 94
== END 2023-08-22 10:34 | disposition skilled nursing facility (03) ==
PROVIDERS: Physician Assistant; Physician Assistant Medical; Emergency Provider Emergency Medicine; PCP Internal Medicine
DX: R53.81 Other malaise (principal); R41.82 Altered mental status, unspecified; G20.A1 Parkinson's disease without dyskinesia, without mention of fluctuations; F02.80 Dementia in other diseases classified elsewhere, unspecified severity, without behavioral disturbance, psychotic disturbance, mood disturbance, and anxiety; I10 Essential (primary) hypertension; E78.2 Mixed hyperlipidemia; K21.9 Gastro-esophageal reflux disease without esophagitis; Z79.02 Long term (current) use of antithrombotics/antiplatelets; Z79.899 Other long term (current) drug therapy; Z11.52 Encounter for screening for COVID-19
CPT/HCPCS: 36415; 70450; 71046; 80048; 80076; 81003; 82140; 83690; 84443; 85025; 87635; 97162; 99285; S9485

== ENCOUNTER 2023-08-24 07:42 | Outpatient (AMB) | payer MEDICARE, MEDICAID, SELFPAY ==
--- NOTE | 2023-08-24 07:51 | A.OFFVIS_ITS ---
Vital Signs 08/24/23 07:59 Height 5 ft 8 in Weight 209 lb BMI 31.8 BP 133/60 Blood Pressure Location Rt brachial Position Sitting Pulse 103 H Intake Visit Reasons: R/S from 02/22/23 & 05/11/23 Intake Note: Patient follow up for GERD. Patient cc: abdominal bloating on and off, LLQ pain, and some constipation, medication is helping with GERD. Air Quality Engineer Required: Yes Air Quality Engineer Name: Sandra [id number] Accompanied by: Self / Same As Patient Allergies pravastatin Allergy (Intermediate, Verified 11/22/23 17:02) dry mouth Medication List - Last Reconciled 08/24/23 by Robby Bentley MD acetaminophen 500 mg PO Q6H PRN allopurinol 200 mg (2 x 100 mg) PO DAILY atorvastatin 40 mg PO DAILY carbidopa-levodopa 25-100 mg 2 tabs PO BID 90 days cholecalciferol (vitamin D3) 25 mcg PO DAILY 90 days clonazepam 0.5 mg PO BEDTIME diclofenac sodium 1% (Voltaren Arthritis Pain) 2 grams topical QID PRN fenofibrate 54 mg PO DAILY 90 days furosemide 20 mg PO DAILY 90 days hydrochlorothiazide 25 mg PO DAILY lidocaine 4% (Aspercreme (lidocaine)) 1 patch topical DAILY PRN lisinopril 40 mg PO DAILY 90 days meclizine 25 mg PO TID PRN 7 days mirabegron ER (Myrbetriq) 25 mg PO DAILY 90 days omeprazole 20 mg PO DAILY 90 days pramipexole 0.5 mg PO TID walker walker with seat and wheels zolpidem 5 mg PO BEDTIME PRN 30 days HPI HPI R/S from 02/22/23 & 05/11/23: Details: GI CLINIC VISIT FOR THIS 78 YEAR OLD AMERICAN-SPEAKING MALE WITH HYPERTENSION, HYPERLIPIDEMIA, GERD AND PARKINSON'S DISEASE REFERRED TO GI FOR COLON CANCER SCREENING PATIENT IS STATUS POST RADICAL PROSTATECTOMY FOR PROSTATE CANCER IN 2010 LABS IN [facility] : 07/2021 - Reviewed IMAGING STUDIES: No recent GI imaging studies TODAY'S VISIT: Telephone spanish interpreter/translator, Sandra # [id number] Pt is accompanied by his son. Pt resides at the [facility] Pt complians of intermittent LLQ pain for the past 5 months. Complains of chronic constipation and has a BM every 3 days. Pt reports a good appetite. PAST VISITS: Patient takes Prilosec every morning for GERD denies symptoms of dysphagia, nausea, vomiting, change in appetite or weight. Denies recent change in bowel habits, constipation, diarrhea, black stools or rectal bleeding. Patient denies major cardiac or pulmonary problems, loud snoring or sleep apnea Denies problems with anesthesia in the past. Denies being on chronic anticoagulation. Patient denies known family history of colon polyps, colon cancer or other GI malignancies. Pt denies tobacco and past ETOH use. 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 Normal per patient. PAST GI HISTORY BY REVIEW OF MEDICAL RECORDS: 12/2021 PATIENT WAS SEEN BY DR. WONG: This is a 76-year-old male with hypertension, mixed hyperlipidemia, GERD and Par kinson's disease that complains of low back pain that has been present for years. This is it to lumbar degenerative disc disease and is follow by pain management. Blood pressure stable. Lipid panel was order. GERD stable with PPIs as needed. Parkinson's disease has not significantly changed with carbidopa-levodopa follow by Neurology. Still has occasional resting tremor in hands. Accompanied by family member. Denies any chest pain or shortness of breath [facility] Medical History (Updated 11/22/23 @ 18:27 by Susy Harrington MD) CKD (chronic kidney disease) stage 3, GFR 30-59 ml/min Skin lesion Left knee pain Chronic pain syndrome Sacroiliac dysfunction Sacroiliitis Spondylosis without myelopathy or radiculopathy, lumbar region Adult general medical exam Screening for colon cancer Leg edema Urgency incontinence Prostate cancer Parkinsons disease Mixed hyperlipidemia Essential hypertension GERD (gastroesophageal reflux disease) Lumbar degenerative disc disease Surgical History History of cataract surgery History of colonoscopy History of basal cell carcinoma (BCC) excision History of prostatectomy Family History Father No problems noted. Mother Diabetes Cancer Social History Housing: Apartment Alcohol intake: former Patient Tobacco Use Status: Never used Tobacco e-Cigarette/Vaping Use: Never Used Second Hand Smoke Exposure: No service: No Current occupational status: disabled Cognitive needs: Yes Hearing needs: No Vision needs: No Review of Systems Const All systems reviewed & are unremarkable except as noted in HPI and below Physical Exam Vital Signs: Last Vital Signs Pulse 103 H 08/24/23 07:59 BP 133/60 08/24/23 07:59 BMI result Body Mass Index 31.8 Const General: no acute distress Nutritional Appearance: obese Orientation/consciousness: Other orientation findings (pt has parkinsonism and dementia) Limitations: language barrier HEENT Head: Yes normal to inspection Ears: hearing grossly normal bilaterally Eyes Sclerae: sclerae normal Pupils: Equal, round and reactive pupils present Neck Neck: Yes normal visual inspection Chest Chest palpation & inspection: normal inspection of the chest Resp Effort & Inspection: normal respiratory effort Auscultation: clear to auscultation bilaterally Cardio Palpation: normal PMI Rate: regular rate Rhythm: regular rhythm Heart sounds: S1 normal heart sound present, S2 normal heart sound present and no murmurs GI Inspection: Yes obesity Palpation (GI): Soft to palpation, nontender and No hepatosplenomegaly present Auscultation: normal bowel sounds Rectal Exam - Male: Yes deferred Skin General skin exam: no rashes or lesions noted Neuro General: gait normal and moves all extremities Cranial nerves: Yes Equal, round and reactive pupils present Psych Appearance: grossly normal Mental Status: mental status grossly normal Quality Reporting (2019) Adult ([facility] 13805/11/68) Smoking risk assessment performed?: Yes Patient Tobacco Use Status: Never used Tobacco Assessment & Plan Assessment & Plan (1) GERD (gastroesophageal reflux disease): Code(s): K21.9 - Gastro-esophageal reflux disease without esophagitis Category: Medical Qualifiers: Esophagitis presence: esophagitis presence not specified Qualified Code(s): K21.9 - Gastro-esophageal reflux disease without esophagitis (2) Screening for colon cancer: Code(s): Z12.11 - Encounter for screening for malignant neoplasm of colon Category: Medical (3) Chronic LLQ pain: Code(s): R10.32 - Left lower quadrant pain; G89.29 - Other chronic pain Category: Medical Plan 78 YEAR OLD AMERICAN-SPEAKING MALE WITH HYPERTENSION, HYPERLIPIDEMIA, GERD AND PARKINSON'S DISEASE REFERRED TO GI FOR COLON CANCER SCREENING PATIENT IS STATUS POST RADICAL PROSTATECTOMY FOR PROSTATE CANCER IN 2010 Patient denies major cardiac or pulmonary problems, loud snoring or sleep apnea Denies problems with anesthesia in the past. Denies being on chronic anticoagulation. Patient denies known family history of colon polyps, colon cancer or other GI malignancies. He reports having a colonoscopy in [place] > 8 yrs ago. Normal per patient. Patient was advised further evaluation with an upper endoscopy (FU of GERD) and a colonoscopy. Both procedures and potential complications including bleeding, perforation, reaction to anesthetic medications and aspiration pneumonia were reviewed with the patient and his granddaughter. Day would like to proceed with EGD and Colon. 08/24/23 Pt complians of intermittent LLQ pain for the past 5 months. Complains of chronic constipation and has a BM every 3 days. Pt advised to schedule an EGD and colon - scheduled 02/26/24 FU in 3 month ADDENDUM: Labs showed normal CBC, and CRP Cr elevated at 1.4 (pt's baseline) Orders: Orders Complete Blood Count Auto Diff 08/24/23 R10.32 - Left lower quadrant pain, G89.29 - Other chronic pain Creatinine 08/24/23 R10.32 - Left lower quadrant pain, G89.29 - Other chronic pain C Reactive Protein 08/24/23 R10.32 - Left lower quadrant pain, G89.29 - Other chronic pain Blood Urea Nitrogen 08/24/23 R10.32 - Left lower quadrant pain, G89.29 - Other chronic pain Medications: New sennosides-docusate sodium 8.6-50 mg (Senna Plus) 2 tab-caps (2 x 8.6-50 mg) PO BEDTIME 120 caps 1RF 60 days bisacodyl (Dulcolax (bisacodyl)) Take 2 tablets at 12 pm daily starting 3 days before colonoscopy appointment 10 mg (2 x 5 mg) PO ONCE 6 tabs 0RF colon prep 3 days peg 3350-electrolytes [id number] -5.86 gram (Golytely) until fecal effluent is clear; do not exceed a total volume [id number] mL 240 mL PO Q10M 4,000 mL 0RF colon prep Coding Level of Care Code Est Pt Level 4 (09237) Diagnoses Gastroesophageal reflux disease, unspecified whether esophagitis present K21.9 Esophagitis presence: esophagitis presence not specified Screening for colon cancer Z12.11 Chronic LLQ pain R10.32; G89.29 Time Spent (min) 24
[2023-08-24 07:59] VITALS: BP 133/60; PULSE 103; BMI 31.8
== END 2023-08-24 08:48 | disposition home or self-care (01) ==
PROVIDERS: PCP Internal Medicine; Visit Provider Internal Medicine Gastroenterology
DX: K21.9 Gastro-esophageal reflux disease without esophagitis (principal); Z12.11 Encounter for screening for malignant neoplasm of colon; R10.32 Left lower quadrant pain; G89.29 Other chronic pain
CPT/HCPCS: 99214

== ENCOUNTER 2023-08-24 07:42 | Outpatient (REF) | payer MEDICARE, MEDICAID, SELFPAY ==
[2023-08-24 08:43] LABS: MANUAL DIFF FLAG NO
[2023-08-24 09:34] LABS: Basophils Percent Auto 0.1 % (0-2); Eosinophils Absolute Auto 0.2 X10*3/uL (0.0-0.4); Eosinophils Percent Auto 2.5 % (0-4); Imm Gran Abs Auto 0.05 X10*3/uL (0.00-0.03); Imm Gran Pct Auto 0.6 % (0.0-0.4); Lymphocytes Absolute Auto 1.4 X10*3/uL (1.2-4.9); Mean Corpuscular HGB Conc 33.3 g/dl (31.0-36.0); Mean Corpuscular Volume 95.9 fL (80.0-98.0); Mean Platelet Volume 12.4 fL (9.4-12.4); Monocytes Absolute Auto 0.8 X10*3/uL (0.1-1.2); Monocytes Percent Auto 10.1 % (2-11); Neutrophils Absolute Auto 5.5 x10*3/uL (2.0-8.3); Neutrophils Percent Auto 68.7 % (45-73); Platelet Count 174 X10*3/uL (160-400); Red Blood Count 4.38 X10*6/uL (4.60-5.80); Red Cell Distribution Width 13.8 % (11.0-16.0)
[2023-08-24 09:54] LABS: Blood Urea Nitrogen 28 mg/dL (9-16); C Reactive Protein 0.25 mg/dL (< or = 0.50); Estimated Glomerular Filt Rate 49
== END 2023-08-24 07:43 | disposition home or self-care (01) ==
LOC: HO.LAB 07:42
PROVIDERS: PCP Internal Medicine; Visit Provider Internal Medicine Gastroenterology
DX: K21.9 Gastro-esophageal reflux disease without esophagitis (principal); K59.09 Other constipation; R10.32 Left lower quadrant pain; G89.29 Other chronic pain
CPT/HCPCS: 36415; 82565; 84520; 85025; 86140; 99212

== ENCOUNTER 2023-09-25 07:59 | Outpatient (AMB) | payer MEDICARE, MEDICAID, SELFPAY ==
[2023-09-25 08:01] VITALS: BP 144/96; PULSE 83; O2SAT 97; BMI 32.5
--- NOTE | 2023-09-25 08:01 | A.OFFPC_ITS ---
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 Services Required: No Accompanied by: Self / Same As Patient Allergies pravastatin Allergy (Intermediate, Verified 09/25/23 08:15) dry mouth Medication List - Last Reconciled 09/25/23 by uSsy Harrington MD acetaminophen 500 mg PO Q6H PRN allopurinol 200 mg (2 x 100 mg) PO DAILY atorvastatin 40 mg PO DAILY bisacodyl (Dulcolax (bisacodyl)) 10 mg (2 x 5 mg) PO ONCE 3 days carbidopa-levodopa 25-100 mg 2 tabs PO BID 90 days cholecalciferol (vitamin D3) 25 mcg PO DAILY 90 days clonazepam 0.5 mg PO BEDTIME diclofenac sodium 1% (Voltaren Arthritis Pain) 2 grams topical QID PRN fenofibrate 54 mg PO DAILY 90 days furosemide 20 mg PO DAILY 90 days hydrochlorothiazide 25 mg PO DAILY lidocaine 4% (Aspercreme (lidocaine)) 1 patch topical DAILY PRN lisinopril 40 mg PO DAILY 90 days meclizine 25 mg PO TID PRN 7 days mirabegron ER (Myrbetriq) 25 mg PO DAILY 90 days omeprazole 20 mg PO DAILY 90 days peg 3350-electrolytes 236-22.74-6.74 -5.86 gram (Golytely) 240 mL PO Q10M pramipexole 0.5 mg PO TID sennosides-docusate sodium 8.6-50 mg (Senna Plus) 2 tab-caps (2 x 8.6-50 mg) PO BEDTIME 60 days walker walker with seat and wheels zolpidem 5 mg PO BEDTIME PRN 30 days Tobacco use date assessed: 05/22/23 Fall risk assessment: No Falls in past year Last assessed Fall Risk: 09/25/23 Dental Screening Dental Screen Date: 05/22/23 HPI HPI Comments History of Present Illness Details This is a 78-year-old male with Parkinson's disease, hypertension, and overactive bladder that comes today by son and [id number] as [facility] with date 09/12/2023 after being in the hospital August 17 due to acute confusion. Patient was found wandering in the streets at 01:00. Had a head CT that did not reveal any acute changes but did reveal maxillary sinus mass versus infection. He denies any sinus tenderness or congestion. Will be referred to ENT. Today he is awake, alert and oriented to time, person and place. Currently lives with ex- and they are trying to get an apartment with 2 bedrooms. Parkinson's disease is follow by Neurology and Neurology is also aware about this confusion episode. Neurology recently inc rease carbidopa-levodopa. Blood pressure borderline normal to elevated and will be recheck in 3 weeks by nurse navigator. Overactive bladder is follow by Urology. He has insomnia and minimal major depression and follow-up visit was requested. Zolpidem will be increased from 5 mg to 10 mg. Also clonazepam was refilled. Patient aware that zolpidem and clonazepam can cause addiction and sedation. [facility] Medical History (Updated 09/25/23 @ 09:05 by Susy Harrington MD) CKD (chronic kidney disease) stage 3, GFR 30-59 ml/min Skin lesion Left knee pain Chronic pain syndrome Sacroiliac dysfunction Sacroiliitis Spondylosis without myelopathy or radiculopathy, lumbar region Adult general medical exam Screening for colon cancer Leg edema Urgency incontinence Prostate cancer Parkinsons disease Mixed hyperlipidemia Essential hypertension GERD (gastroesophageal reflux disease) Lumbar degenerative disc disease Surgical History History of cataract surgery History of colonoscopy History of basal cell carcinoma (BCC) excision History of prostatectomy Family History Father No problems noted. Mother Diabetes Cancer Social History Housing: Apartment Alcohol intake: former Patient Tobacco Use Status: Never used Tobacco e-Cigarette/Vaping Use: Never Used Second Hand Smoke Exposure: No service: No Current occupational status: disabled Cognitive needs: Yes Hearing needs: No Vision needs: No Questionnaire PHQ-9 Over the last 2 weeks, how often have you been bothered by any of the following problems? 1. Little interest or pleasure in doing things: not at all 2. Feeling down, depressed, or hopeless: not at all 3. Trouble falling or staying asleep, or sleeping too much: more than half the days 4. Feeling tired or having little energy: not at all 5. Poor appetite or overeating: not at all 6. Feeling bad about yourself - or that you are a failure or have let yourself or your family down: not at all 7. Trouble concentrating on things, such as reading the newspaper or watching television: not at all 8. Moving or speaking so slowly that other people could have noticed. Or the opposite - being so fidgety or restless that you have been moving around a lot more than usual: not at all 9. Thoughts that you would be better off or of hurting yourself in some way: not at all Total score: 2 Depression Screening Interpretation: Positive Depression Screening Follow-up: Existing condition and Follow-up Visit Requested Depression Screening Done: Yes 96394 - PHQ-9 Billing: Yes Source: Developed by Drs. Iggy Kelly, Ivett Easley, Chinmay Gutierrez and colleagues, with an educational darryn from [employer]. Thrive Questionnaire Date Thrive assessed: 05/22/23 I am a: Patient What is your living situation today?: I have a steady place to live Within the past 12 months, did the food you bought not last and you didn't have the money to get more?: Never true Within the past 12 months, did you worry whether your food would run out before you got money to buy more?: Never true Do you have trouble paying for medicines?: No Do you have trouble getting transportation to medical appointments?: No Do you have trouble paying your heating and electricity bill?: No Do you have trouble taking care of your child, family member or friend?: No Do you have trouble with day-to-day activities such as bathing, preparing meals, shopping, managing finances, etc.?: Yes Are you currently unemployed and looking for a job?: No Are you interested in more education?: No Please select the resources that you would like help with: None THRIVE Score: 0 AUDIT C Alcohol Use Questionnaire (AUDIT-C) 1. How often do you have a drink containing alcohol?: Never Total Score: 0 DULCE-7 AMB Questionnaire DULCE-7 Date DULCE - 7 assessed: 05/22/23 Feeling nervous, anxious, or on edge: 0 = Not at all Not being able to stop or control worryin = Not at all Worrying too much about different things: 0 = Not at all Trouble relaxin = Not at all Being so restless that it is hard to sit still: 0 = Not at all Becoming easily annoyed or irritable: 0 = Not at all Feeling afraid as if something awful might happen: 0 = Not at all Total DULCE-7 score (0-4 normal; 5-9 mild; 10-14 moderate; 15-21 severe): 0 Source: Developed by Drs. Iggy Kelly, Ivett Easley, Chinmay Gutierrez and colleagues, with an educational darryn from [employer]. DULCE-7 Assessment Billing DULCE-7 Assessment Tool: DULCE-7 Assessment 36322 Review of Systems Const All systems reviewed & are unremarkable except as noted in HPI and below ENT Reports dizziness Card Denies chest pain at rest, Denies chest pain with activity, Denies edema, Denies irregular heart rhythm, Denies claudication, Denies dyspnea, Denies dyspnea on exertion, Denies orthopnea, Denies paroxysmal nocturnal dyspnea and Denies slow heart rate Resp Denies cough, Denies dyspnea and Denies dyspnea on exertion Reports nocturia Neuro Reports dizziness, Reports memory loss and Reports tremor(s) Psych Reports memory loss Physical exam (Primary Care) Vital Signs: Last Vital Signs Pulse 83 09/25/23 08:01 BP 144/96 H 09/25/23 08:01 Pulse Ox 97 09/25/23 08:01 Oxygen Delivery Method Room Air 09/25/23 08:01 BMI result Body Mass Index 32.5 BMI Assessment/Plan discussion: High BMI High, discussed plan: lifestyle, weight reduction, dietary and physical activity Tobacco/Smoking Status: Tobacco use Status Tobacco use date assessed 05/22/23 09/25/23 08:08 Patient Tobacco Use Status Never used Tobacco 09/25/23 08:08 e-Cigarette/Vaping Use Never Used 09/25/23 08:08 PHQ-9: PHQ-9 Score PHQ-9: Total score 2 09/25/23 08:16 Depression Screening Interpretation: Positive Depression Screening Follow-up: Existing condition and Follow-up Visit Requested Thrive Assessment: Date of Thrive Assessment Date Thrive assessed 05/22/23 09/25/23 08:08 Const General: cooperative and comfortable Orientation/consciousness: patient oriented x3 Limitations: ambulation with cane Resp Effort & Inspection: normal respiratory effort Auscultation: clear to auscultation bilaterally Cardio Jugular venous distension: no JVD Rate: regular rate Rhythm: regular rhythm Heart sounds: S1 normal heart sound present and S2 normal heart sound present Neuro General: patient oriented x3 and no focal motor deficits Gait exam (Neuro): Shuffling gait present Motor exam (neuro): Tremors during motor activity present bilateral upper extremity resting tremor Extrem General: Yes full ROM Assessment and Plan Assessment & Plan (1) Hospital discharge follow-up: Code(s): Z09 - Encounter for follow-up examination after completed treatment for conditions other than malignant neoplasm Plan: Discharge date 09[facility]12/20[facility] after being in the hospital for acute confusion. Labs were within normal limits. Head CT with no acute abnormalities but did show maxillary sinus mass. Will be referred to ENT. (2) Confusion: Code(s): R41.0 - Disorientation, unspecified Plan: He is awake, alert and oriented to time, person and place today. He does needs to stay living with someone that could monitor him 10/10. (3) Maxillary sinus mass: Code(s): J34.89 - Other specified disorders of nose and nasal sinuses Plan: Referred to ENT. (4) Overactive bladder: Code(s): N32.81 - Overactive bladder Plan: Continue Myrbetriq. Follow-up with Urology. (5) Parkinsons disease: Code(s): G20 - Parkinson's disease Qualifiers: Dyskinesia presence: with dyskinesia Fluctuating manifestations: with fluctuating manifestations Qualified Code(s): G20.B2 - Parkinson's disease with dyskinesia, with fluctuations Plan: Continue carbidopa levodopa. Follow-up with Neurology. (6) Essential hypertension: Code(s): I10 - Essential (primary) hypertension Plan: Continue lisinopril and hydrochlorothiazide. Recheck blood pressure with nurse navigator in 3 weeks. Blood pressure goal is equal or less than 130/80. Orders: Referrals Ear/Nose/Throat Referral J34.89 - Other specified disorders of nose and nasal sinuses Medications: Changed From hydrochlorothiazide 25 mg PO DAILY To hydrochlorothiazide 25 mg PO DAILY 90 tabs 1RF 90 days From clonazepam 0.5 mg PO BEDTIME To clonazepam 0.5 mg PO BEDTIME 30 tabs 0RF 30 days From diclofenac sodium 1% (Voltaren Arthritis Pain) apply to single elbow, wrist or hand; for hand includes palm/fingers/back of hand 2 grams topical QID PRN Arthritis pain To diclofenac sodium 1% (Voltaren Arthritis Pain) apply to single elbow, wrist or hand; for hand includes palm/fingers/back of hand 2 grams topical QID PRN 100 grams 1RF Arthritis pain 30 days Refilled mirabegron ER (Myrbetriq) 25 mg PO DAILY 90 tabs 3RF 90 days N32.81 - Overactive bladder lisinopril 40 mg PO DAILY 90 tabs 1RF 90 days Discontinued zolpidem Discontinued Reason: Order 5 mg PO BEDTIME 30 days PRN 30 tabs 0RF sleep Coding Level of Care Code TCM Mod MDM <= 14 Days Complex EM visit Add On G2211 Diagnoses Hospital discharge follow-up Z09 Confusion R41.0 Maxillary sinus mass J34.89 Overactive bladder N32.81 Parkinson's disease with dyskinesia and fluctuating manifestations G20.B2 Dyskinesia presence: with dyskinesia Fluctuating manifestations: with fluctuating manifestations Essential hypertension I10 Additional Codes DULCE-7 Assessment Billing - DULCE-7 Assessment Tool: DULCE-7 Assessment 76290 ([id number]) Time Spent (min) 26
== END 2023-09-25 08:34 | disposition home or self-care (01) ==
PROVIDERS: PCP Internal Medicine; Visit Provider Internal Medicine
DX: R41.0 Disorientation, unspecified (principal); J34.89 Other specified disorders of nose and nasal sinuses; N32.81 Overactive bladder; G20.B2 Parkinson's disease with dyskinesia, with fluctuations; I10 Essential (primary) hypertension; Z09 Encounter for follow-up examination after completed treatment for conditions other than malignant neoplasm; F32.9 Major depressive disorder, single episode, unspecified
CPT/HCPCS: 99214; G2211

== ENCOUNTER 2023-11-14 08:45 | Outpatient (REF) | payer MEDICARE, MEDICAID, SELFPAY ==
--- NOTE | ~2023-11-14 | XR_ITS ---
EXAMINATION: XR KNEE, RIGHT XR KNEE, LEFT CLINICAL INFORMATION: Right and left knee pain. COMPARISON: Left knee radiographs dated 08/10/2021. TECHNIQUE: AP view of the right and left knee. Lateral and sunrise views of the left knee. FINDINGS: RIGHT KNEE: Moderate medial compartment joint space narrowing with marginal osteophytes. Medial and lateral compartment chondrocalcinosis. No fracture or dislocation. No concerning lytic or blastic osseous lesion. LEFT KNEE: Mild medial compartment joint space narrowing with tiny medial and patellofemoral compartment marginal osteophytes, unchanged. Tricompartmental chondrocalcinosis is redemonstrated. Tiny superior patellar enthesophyte. No significant joint effusion. No acute fracture or dislocation. No concerning lytic or blastic osseous lesion. XR/XR knee RT 1V IMPRESSION: Right Knee: Moderate medial as well as mild patellofemoral and lateral compartment osteoarthritis, unchanged. Left Knee: Mild medial and patellofemoral compartment osteoarthritis, unchanged. Tricompartmental chondrocalcinosis, unchanged. Electronically signed by: Navi Sifuentes MD 12/04/2023 08:56 PM EDT
--- NOTE | ~2023-11-14 | XR_ITS ---
EXAMINATION: XR KNEE, RIGHT XR KNEE, LEFT CLINICAL INFORMATION: Right and left knee pain. COMPARISON: Left knee radiographs dated 08/10/2021. TECHNIQUE: AP view of the right and left knee. Lateral and sunrise views of the left knee. FINDINGS: RIGHT KNEE: Moderate medial compartment joint space narrowing with marginal osteophytes. Medial and lateral compartment chondrocalcinosis. No fracture or dislocation. No concerning lytic or blastic osseous lesion. LEFT KNEE: Mild medial compartment joint space narrowing with tiny medial and patellofemoral compartment marginal osteophytes, unchanged. Tricompartmental chondrocalcinosis is redemonstrated. Tiny superior patellar enthesophyte. No significant joint effusion. No acute fracture or dislocation. No concerning lytic or blastic osseous lesion. XR/XR knee LT 3V IMPRESSION: Right Knee: Moderate medial as well as mild patellofemoral and lateral compartment osteoarthritis, unchanged. Left Knee: Mild medial and patellofemoral compartment osteoarthritis, unchanged. Tricompartmental chondrocalcinosis, unchanged. Electronically signed by: Navi Sifuentes MD 12/04/2023 08:56 PM EDT
== END 2023-11-14 08:46 | disposition home or self-care (01) ==
LOC: HO.HOSX 08:45
PROVIDERS: Visit Provider Physician Assistant
DX: M25.561 Pain in right knee (principal); M25.562 Pain in left knee; M17.12 Unilateral primary osteoarthritis, left knee
CPT/HCPCS: 20610; 73560; 73562; 99212; J1010

== ENCOUNTER 2023-11-14 10:01 | Outpatient (AMB) | payer MEDICARE, MEDICAID, SELFPAY ==
--- NOTE | 2023-11-14 10:01 | A.OFFVIS_ITS ---
Intake Visit Reasons: OV - Left knee OA, last inj 10/15/21 Intake Note: Onur is a 78 year old male who presents today for a follow up of his left knee OA, last injection 10/05/21. Patient reports his last injection gave him relief and would like to repeat. Allergies pravastatin Allergy (Intermediate, Verified 11/14/23 10:04) dry mouth HPI HPI OV - Left knee OA, last inj 10/15/21: Details: 78-year-old right hand dominant male who presents in the office today for a follow-up of left knee osteoarthritis. I last saw the patient in the office on 10/05/21 when he received a cortisone injection in the left knee. ? ? While in the office today, the patient reports the last injection gave him relief and he is interested in repeating it. ? [facility] Medical History CKD (chronic kidney disease) stage 3, GFR 30-59 ml/min Skin lesion Left knee pain Chronic pain syndrome Sacroiliac dysfunction Sacroiliitis Spondylosis without myelopathy or radiculopathy, lumbar region Adult general medical exam Screening for colon cancer Leg edema Urgency incontinence Prostate cancer Parkinsons disease Mixed hyperlipidemia Essential hypertension GERD (gastroesophageal reflux disease) Lumbar degenerative disc disease Surgical History History of cataract surgery History of colonoscopy History of basal cell carcinoma (BCC) excision History of prostatectomy Family History Father No problems noted. Mother Diabetes Cancer Social History Housing: Apartment Alcohol intake: former Patient Tobacco Use Status: Never used Tobacco e-Cigarette/Vaping Use: Never Used Second Hand Smoke Exposure: No service: No Current occupational status: disabled Cognitive needs: Yes Hearing needs: No Vision needs: No Review of Systems Const All systems reviewed & are unremarkable except as noted in HPI and below Physical Exam Const General: cooperative, healthy appearing and no acute distress Resp Effort & Inspection: normal respiratory effort and able to speak in complete sentences Cardio Rate: regular rate Peripheral pulses: Peripheral pulses 2+ throughout GI Palpation (GI): Soft to palpation Skin Lesions: no lesions Rashes: no rashes Extrem Other: Left knee: Normal to inspection. No ecchymosis, erythema, or joint effusion. Tenderness to palpation to the medial and lateral joint lines. Full knee extension and flexion. Negative Elizabeth's. Negative anterior draw. NVI. Office Procedures Joint Injection/Aspiration Joint Injection/Aspiration Primary Site: left knee Prep: site was prepped using aseptic technique, ethochloride spray was applied and injection warnings given Injected: 80 mg of, DepoMedrol, with 8 mL of (2% plain lido ) and in the joint Approach Used: anterolateral Procedure: The patient tolerated the procedure well, but had some pain with the injection and there was some relief with the local anesthesia Coding 60795 - Large joint Procedure code (CPT) selection complete Quality Reporting (2019) Adult ([facility] ) Smoking risk assessment performed?: Yes Patient Tobacco Use Status: Never used Tobacco Assessment & Plan Assessment & Plan (1) Osteoarthritis of left knee: Code(s): M17.12 - Unilateral primary osteoarthritis, left knee Category: Medical Plan Mr. Cody Rivas is a 78-year-old right hand dominant male who presents in the office today for a follow-up of left knee osteoarthritis. I last saw the patient in the office on 10/05/21 when he received a cortisone injection in the left knee. ? ? While in the office today, the patient reports the last injection gave him relief and he is interested in repeating it.? ? The patient was offered a cortisone injection in the left knee with 80 mg of Depo-Medrol. The patient was explained the risks, benefits, and alternatives to receiving this injection. After receiving consent for the injection, the patient had the procedure done while in the office today. The patient tolerated the procedure well with no complications.? ? X-rays of the bilateral knees which were obtained while in the office today and were reviewed by me, Saira Dumont PA-C, revealed osteoarthritis bilaterally. ? Orders: Orders XR knee RT 1V Today M25.569 - Pain in unspecified knee XR knee LT 3V Today M25.569 - Pain in unspecified knee Patient Instructions: Scribed by Onelia Diaz resident medical officer, for Saira Dumont PA-C on 11/14/2023 at 10:10 am, EST.? Coding Level of Care Code Est Pt Level 3 (30227) Diagnoses Osteoarthritis of left knee M17.12 CPT Codes Coding - 15267 Large joint: 79952 - Large joint ([id number])
== END 2023-11-14 10:15 | disposition home or self-care (01) ==
LOC: HO.HOS 10:01
PROVIDERS: PCP Internal Medicine; Visit Provider Physician Assistant
DX: M17.12 Unilateral primary osteoarthritis, left knee (principal)
CPT/HCPCS: 20610; 99213

== ENCOUNTER 2023-11-22 16:38 | Outpatient (AMB) | payer MEDICARE, MEDICAID, SELFPAY ==
[2023-11-22 16:44] VITALS: BP 142/82; PULSE 85; O2SAT 95; BMI 32.7
--- NOTE | 2023-11-22 16:44 | MHC.PC.OV ---
Vital Signs 11/22/23 16:44 Height 5 ft 8 in Weight 215 lb BMI 32.7 BP 142/82 H Blood Pressure Location Lt brachial Position Sitting Pulse 85 Pulse Source Pulse Oximeter Pulse Oximetry (%) 95 Oxygen Delivery Method Room Air Intake Visit Reasons: no control over bladder Digital Media Producer Required: No Accompanied by: Son Allergies pravastatin Allergy (Intermediate, Verified 11/22/23 17:02) dry mouth Medication List - Last Reconciled 11/22/23 by Susy Harrington MD acetaminophen 500 mg PO Q6H PRN allopurinol 200 mg (2 x 100 mg) PO DAILY atorvastatin 40 mg PO DAILY 90 days bisacodyl (Dulcolax (bisacodyl)) 10 mg (2 x 5 mg) PO ONCE 3 days carbidopa-levodopa 25-100 mg 2 tabs PO BID 90 days cholecalciferol (vitamin D3) 25 mcg PO DAILY 90 days clonazepam 0.5 mg PO BEDTIME 30 days diclofenac sodium 1% (Voltaren Arthritis Pain) 2 grams topical QID PRN 30 days fenofibrate 54 mg PO DAILY 90 days hydrochlorothiazide 25 mg PO DAILY 90 days lidocaine 4% (Aspercreme (lidocaine)) 1 patch topical DAILY PRN lisinopril 40 mg PO DAILY 90 days meclizine 25 mg PO TID PRN 7 days mirabegron ER (Myrbetriq) 25 mg PO DAILY 90 days omeprazole 20 mg PO DAILY 90 days peg 3350-electrolytes 236-22.74-6.74 -5.86 gram (Golytely) 240 mL PO Q10M pramipexole 0.5 mg PO TID sennosides-docusate sodium 8.6-50 mg (Senna Plus) 2 tab-caps (2 x 8.6-50 mg) PO BEDTIME 60 days walker walker with seat and wheels zolpidem 5 mg PO BEDTIME PRN 30 days Tobacco use date assessed: 05/22/23 Fall risk assessment: No Falls in past year Last assessed Fall Risk: 11/22/23 Dental Screening Dental Screen Date: 05/22/23 HPI HPI Comments History of Present Illness Details This is a 78-year-old male with hypertension, GERD, Parkinson's disease, chronic kidney disease stage 3 and urgency incontinence of urine that comes today accompanied by son for follow-up on his conditions. Blood pressure borderline normal to elevated today. GERD stable with PPIs. On carbidopa levodopa for his Parkinson's disease. Has chronic kidney disease and is aware to avoid NSAIDs. GFR will be monitor. Needs bed under pads and pull-ups diapers for his urinary urgency incontinence. Denies any chest pain or shortness on breath. [facility] Medical History (Updated 11/22/23 @ 18:27 by Susy Harrington MD) CKD (chronic kidney disease) stage 3, GFR 30-59 ml/min Skin lesion Left knee pain Chronic pain syndrome Sacroiliac dysfunction Sacroiliitis Spondylosis without myelopathy or radiculopathy, lumbar region Adult general medical exam Screening for colon cancer Leg edema Urgency incontinence Prostate cancer Parkinsons disease Mixed hyperlipidemia Essential hypertension GERD (gastroesophageal reflux disease) Lumbar degenerative disc disease Surgical History History of cataract surgery History of colonoscopy History of basal cell carcinoma (BCC) excision History of prostatectomy Family History Father No problems noted. Mother Diabetes Cancer Social History Housing: Apartment Alcohol intake: former Patient Tobacco Use Status: Never used Tobacco e-Cigarette/Vaping Use: Never Used Second Hand Smoke Exposure: No service: No Current occupational status: disabled Cognitive needs: Yes Hearing needs: No Vision needs: No Questionnaire Thrive Questionnaire Date Thrive assessed: 05/22/23 DULCE-7 AMB Questionnaire DULCE-7 Date DULCE - 7 assessed: 05/22/23 Source: Developed by Drs. Iggy Kelly, Ivett Easley, Chinmay Gutierrez and colleagues, with an educational darryn from [employer]. Review of Systems Const All systems reviewed & are unremarkable except as noted in HPI and below Card Denies chest pain at rest, Denies chest pain with activity, Denies edema, Denies irregular heart rhythm, Denies claudication, Denies dyspnea, Denies dyspnea on exertion, Denies orthopnea, Denies paroxysmal nocturnal dyspnea and Denies slow heart rate Resp Denies cough, Denies dyspnea and Denies dyspnea on exertion GI Denies abdominal pain, Denies change in bowel habits, Denies excessive flatus, Denies nausea and Denies vomiting Denies urinary hesitancy, Denies urinary incontinence and Denies urinary urgency Musc Denies abnormal gait, Denies atrophy, Denies deformity and Denies limited range of motion Skin/Breast Denies bleeding lesions, Denies changing lesions and Denies rash Neuro Denies abnormal gait, Denies behavioral changes and Denies lack of coordination Psych Denies behavioral changes Physical exam (Primary Care) Vital Signs: Last Vital Signs Pulse 85 11/22/23 16:44 BP 142/82 H 11/22/23 16:44 Pulse Ox 95 11/22/23 16:44 Oxygen Delivery Method Room Air 11/22/23 16:44 BMI result Body Mass Index 32.7 BMI Assessment/Plan discussion: High BMI High, discussed plan: lifestyle, weight reduction, dietary and physical activity Tobacco/Smoking Status: Tobacco use Status Tobacco use date assessed 05/22/23 11/22/23 16:44 Patient Tobacco Use Status Never used Tobacco 11/22/23 16:44 e-Cigarette/Vaping Use Never Used 11/22/23 16:44 Thrive Assessment: Date of Thrive Assessment Date Thrive assessed 05/22/23 11/22/23 16:44 Resp Effort & Inspection: normal respiratory effort Auscultation: clear to auscultation bilaterally Cardio Jugular venous distension: no JVD Rate: regular rate Rhythm: regular rhythm Heart sounds: S1 normal heart sound present and S2 normal heart sound present Neuro Motor exam (neuro): Tremors during motor activity present (resting tremor in hands) Extrem General: Yes full ROM Assessment and Plan Assessment & Plan (1) Urgency incontinence: Code(s): N39.41 - Urge incontinence Plan: Continue Myrbetriq. Use diapers and bed pads. (2) Parkinsons disease: Code(s): G20 - Parkinson's disease Qualifiers: Dyskinesia presence: with dyskinesia Fluctuating manifestations: with fluctuating manifestations Qualified Code(s): G20.B2 - Parkinson's disease with dyskinesia, with fluctuations Plan: Continue carbidopa levodopa. Follow-up with Neurology. (3) Essential hypertension: Code(s): I10 - Essential (primary) hypertension Plan: Continue lisinopril. Discontinue hydrochlorothiazide. Start amlodipine. Blood pressure goal is equal or less than 130/80. (4) GERD (gastroesophageal reflux disease): Code(s): K21.9 - Gastro-esophageal reflux disease without esophagitis Qualifiers: Esophagitis presence: esophagitis presence not specified Qualified Code(s): K21.9 - Gastro-esophageal reflux disease without esophagitis Plan: Continue PPIs. (5) CKD (chronic kidney disease) stage 3, GFR 30-59 ml/min: Code(s): N18.30 - Chronic kidney disease, stage 3 unspecified Qualifiers: Chronic kidney disease stage 3 subtype: stage 3a (GFR 45-59) Qualified Code(s): N18.31 - Chronic kidney disease, stage 3a Plan: Avoid NSAIDs. Keep blood pressure less than 130/80. Orders: Referrals Urology Referral N39.41 - Urge incontinence Medications: New [adult diapers pull-ups] As directed 240 ea 11RF N39.41 - Urge incontinence amlodipine 5 mg PO DAILY 90 days 90 tabs 1RF underpads (Bed Underpads) Use 8 pads per day 240 ea 11RF N39.41 - Urge incontinence Discontinued hydrochlorothiazide Discontinued Reason: Patient Completed Course 25 mg PO DAILY 90 days 90 tabs 1RF Coding Level of Care Code Est Pt Level 4 (47501) Complex EM visit Add On G2211 Diagnoses Urgency incontinence N39.41 Parkinson's disease with dyskinesia and fluctuating manifestations G20.B2 Dyskinesia presence: with dyskinesia Fluctuating manifestations: with fluctuating manifestations Essential hypertension I10 Gastroesophageal reflux disease, unspecified whether esophagitis present K21.9 Esophagitis presence: esophagitis presence not specified Stage 3a chronic kidney disease N18.31 Chronic kidney disease stage 3 subtype: stage 3a (GFR 45-59) Time Spent (min) 23
== END 2023-11-22 17:10 | disposition home or self-care (01) ==
PROVIDERS: PCP Internal Medicine; Visit Provider Internal Medicine
DX: I12.9 Hypertensive chronic kidney disease with stage 1 through stage 4 chronic kidney disease, or unspecified chronic kidney disease (principal); G20.B2 Parkinson's disease with dyskinesia, with fluctuations; N18.31 Chronic kidney disease, stage 3a; N39.41 Urge incontinence; K21.9 Gastro-esophageal reflux disease without esophagitis
CPT/HCPCS: 99214; G2211

== ENCOUNTER 2023-12-05 07:33 | Outpatient (AMB) | payer MEDICARE, MEDICAID, SELFPAY ==
--- NOTE | 2023-12-05 07:39 | A.OFFVIS_ITS ---
Vital Signs 12/05/23 07:48 Height 5 ft 8 in BP 147/79 H Blood Pressure Location Lt brachial Position Sitting Pulse 79 Intake Visit Reasons: LLQ pain Intake Note: Patient follow up for LLQ pain and lab results Patient cc: LLQ pain and acid reflex Manager Wholesale Required: Yes Manager Wholesale Name: [id number] Accompanied by: Son Allergies pravastatin Allergy (Intermediate, Verified 12/05/23 07:44) dry mouth Medication List - Last Reconciled 12/05/23 by Robby Bentley MD acetaminophen 500 mg PO Q6H PRN [adult diapers pull-ups As directed] allopurinol 200 mg (2 x 100 mg) PO DAILY amlodipine 5 mg PO DAILY 90 days atorvastatin 40 mg PO DAILY 90 days bisacodyl (Dulcolax (bisacodyl)) 10 mg (2 x 5 mg) PO ONCE 3 days carbidopa-levodopa 25-100 mg 2 tabs PO BID 90 days cholecalciferol (vitamin D3) 25 mcg PO DAILY 90 days clonazepam 0.5 mg PO BEDTIME 30 days diclofenac sodium 1% (Voltaren Arthritis Pain) 2 grams topical QID PRN 30 days fenofibrate 54 mg PO DAILY 90 days lidocaine 4% (Aspercreme (lidocaine)) 1 patch topical DAILY PRN lisinopril 40 mg PO DAILY 90 days meclizine 25 mg PO TID PRN 7 days mirabegron ER (Myrbetriq) 25 mg PO DAILY 90 days omeprazole 20 mg PO DAILY 90 days peg 3350-electrolytes 236-22.74-6.74 -5.86 gram (Golytely) 240 mL PO Q10M pramipexole 0.5 mg PO TID sennosides-docusate sodium 8.6-50 mg (Senna Plus) 2 tab-caps (2 x 8.6-50 mg) PO BEDTIME 60 days underpads (Bed Underpads) Use 8 pads per day walker walker with seat and wheels zolpidem 5 mg PO BEDTIME PRN 30 days HPI HPI LLQ pain: Details: GI CLINIC VISIT FOR THIS 78 YEAR OLD SWISS-SPEAKING MALE WITH HYPERTENSION, HYPERLIPIDEMIA, GERD AND PARKINSON'S DISEASE REFERRED TO GI FOR COLON CANCER SCREENING PATIENT IS STATUS POST RADICAL PROSTATECTOMY FOR PROSTATE CANCER IN 2010 LABS IN [place] : 07/2021 - Reviewed IMAGING STUDIES: No recent GI imaging studies TODAY'S VISIT: Telephone lang interpreter, [place] [id number] Pt is accompanied by his son. Pt resides at the [facility] Complains of pain in elbow and back Pt complains of intermittent LLQ pain for the past 8 months. States he is having regular BMs and denies constipation PAST VISITS: Complains of chronic constipation and has a BM every 3 days. Pt reports a good appetite. Patient takes Prilosec every morning for GERD denies symptoms of dysphagia, nausea, vomiting, change in appetite or weight. Denies recent change in bowel habits, constipation, diarrhea, black stools or rectal bleeding. Patient denies major cardiac or pulmonary problems, loud snoring or sleep apnea Denies problems with anesthesia in the past. Denies being on chronic anticoagulation. Patient denies known family history of colon polyps, colon cancer or other GI malignancies. Pt denies tobacco and past ETOH use. 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 Normal per patient. PAST GI HISTORY BY REVIEW OF MEDICAL RECORDS: 12/2021 PATIENT WAS SEEN BY DR. WONG: This is a 76-year-old male with hypertension, mixed hyperlipidemia, GERD and Parkinson's disease that complains of low back pain that has been present for years. This is it to lumbar degenerative disc disease and is follow by pain management. Blood pressure stable. Lipid panel was order. GERD stable with PPIs as needed. Parkinson's disease has not significantly changed with carbidopa-levodopa follow by Neurology. Still has occasional resting tremor in hands. Accompanied by family member. Denies any chest pain or shortness of breath [facility] Medical History (Updated 11/22/23 @ 18:27 by Susy Harrington MD) CKD (chronic kidney disease) stage 3, GFR 30-59 ml/min Skin lesion Left knee pain Chronic pain syndrome Sacroiliac dysfunction Sacroiliitis Spondylosis without myelopathy or radiculopathy, lumbar region Adult general medical exam Screening for colon cancer Leg edema Urgency incontinence Prostate cancer Parkinsons disease Mixed hyperlipidemia Essential hypertension GERD (gastroesophageal reflux disease) Lumbar degenerative disc disease Surgical History History of cataract surgery History of colonoscopy History of basal cell carcinoma (BCC) excision History of prostatectomy Family History Father No problems noted. Mother Diabetes Cancer Social History Housing: Apartment Alcohol intake: former Patient Tobacco Use Status: Never used Tobacco e-Cigarette/Vaping Use: Never Used Second Hand Smoke Exposure: No service: No Current occupational status: disabled Cognitive needs: Yes Hearing needs: No Vision needs: No Review of Systems Const All systems reviewed & are unremarkable except as noted in HPI and below Physical Exam Vital Signs: Last Vital Signs Pulse 79 12/05/23 07:48 BP 147/79 H 12/05/23 07:48 Const General: no acute distress and ill appearing (Chronically ill-appearing) Nutritional Appearance: obese Orientation/consciousness: patient oriented x3 Limitations: language barrier and ambulation with walker HEENT Head: Yes normal to inspection Ears: hearing grossly normal bilaterally Eyes Sclerae: sclerae normal Pupils: Equal, round and reactive pupils present Neck Neck: Yes normal visual inspection Chest Chest palpation & inspection: normal inspection of the chest Resp Effort & Inspection: normal respiratory effort Auscultation: clear to auscultation bilaterally Cardio Palpation: normal PMI Rate: regular rate Rhythm: regular rhythm Heart sounds: S1 normal heart sound present, S2 normal heart sound present and no murmurs GI Palpation (GI): Soft to palpation, nontender and No hepatosplenomegaly present Auscultation: normal bowel sounds Rectal Exam - Male: Yes deferred Skin General skin exam: no rashes or lesions noted Neuro General: patient oriented x3, gait normal and moves all extremities Cranial nerves: Yes Equal, round and reactive pupils present Psych Appearance: grossly normal Mental Status: mental status grossly normal Quality Reporting (2019) Adult ([facility] 138/05/11/68) Smoking risk assessment performed?: Yes Patient Tobacco Use Status: Never used Tobacco Assessment & Plan Assessment & Plan (1) GERD (gastroesophageal reflux disease): Code(s): K21.9 - Gastro-esophageal reflux disease without esophagitis Category: Medical Qualifiers: Esophagitis presence: esophagitis presence not specified Qualified Code(s): K21.9 - Gastro-esophageal reflux disease without esophagitis (2) Screening for colon cancer: Code(s): Z12.11 - Encounter for screening for malignant neoplasm of colon Category: Medical (3) Chronic LLQ pain: Code(s): R10.32 - Left lower quadrant pain; G89.29 - Other chronic pain Category: Medical Plan 78 YEAR OLD SWISS-SPEAKING MALE WITH HYPERTENSION, HYPERLIPIDEMIA, GERD AND PARKINSON'S DISEASE REFERRED TO GI FOR COLON CANCER SCREENING PATIENT IS STATUS POST RADICAL PROSTATECTOMY FOR PROSTATE CANCER IN 2010 Patient denies major cardiac or pulmonary problems, loud snoring or sleep apnea Denies problems with anesthesia in the past. Denies being on chronic anticoagulation. Patient denies known family history of colon polyps, colon cancer or other GI malignancies. He reports having a colonoscopy in [place] > 8 yrs ago. Normal per patient. Patient was advised further evaluation with an upper endoscopy (FU of GERD) and a colonoscopy. Both procedures and potential complications including bleeding, perforation, reaction to anesthetic medications and aspiration pneumonia were reviewed with the patient and his granddaughter. Day would like to proceed with EGD and Colon. 08/24/23 Pt complians of intermittent LLQ pain for the past 5 months. Complains of chronic constipation and has a BM every 3 days. EGD and colon - scheduled 02/26/24 FU appt on 03/21/24 FU in 3 months Orders: Orders EGD/Ramey Combo - GI Use Only Today Medications: New bisacodyl (Dulcolax (bisacodyl)) Take 2 tablets at 12 pm starting 5 days before colonoscopy appointment 10 mg (2 x 5 mg) PO ONCE 5 days 10 tabs 0RF Refilled peg 3350-electrolytes 236-22.74-6.74 -5.86 gram (Golytely) until fecal effluent is clear; do not exceed a total volume [id number] mL 240 mL PO Q10M 4,000 mL 0RF colon prep Coding Level of Care Code Est Pt Level 4 (60607) Diagnoses Gastroesophageal reflux disease, unspecified whether esophagitis present K21.9 Esophagitis presence: esophagitis presence not specified Screening for colon cancer Z12.11 Chronic LLQ pain R10.32; G89.29 Time Spent (min) 20
[2023-12-05 07:48] VITALS: BP 147/79; PULSE 79
== END 2023-12-05 08:15 | disposition home or self-care (01) ==
PROVIDERS: PCP Internal Medicine; Visit Provider Internal Medicine Gastroenterology
DX: K21.9 Gastro-esophageal reflux disease without esophagitis (principal); Z12.11 Encounter for screening for malignant neoplasm of colon; R10.32 Left lower quadrant pain; G89.29 Other chronic pain
CPT/HCPCS: 99214

== ENCOUNTER → 2023-12-05 07:33 | Outpatient (BNVA) | payer MEDICARE, MEDICAID, SELFPAY | PROVIDERS: PCP Internal Medicine; Visit Provider Internal Medicine Gastroenterology | DX: Z01.818 Encounter for other preprocedural examination (principal); K21.9 Gastro-esophageal reflux disease without esophagitis; K59.09 Other constipation; R10.32 Left lower quadrant pain; G89.29 Other chronic pain | CPT/HCPCS: 99212 ==

== ENCOUNTER 2023-12-14 09:20 | Outpatient (AMB) | payer MEDICARE, MEDICAID, SELFPAY ==
[2023-12-14 09:25] VITALS: BMI 32.7
--- NOTE | 2023-12-14 09:25 | MHC.OFFVIS ---
Vital Signs 12/14/23 09:25 Height 5 ft 8 in Weight 215 lb BMI 32.7 Intake Visit Reasons: New prob- Lower back pain Intake Note: Onur is a 78 year old male who presents to the office today for lower back pain. Patient referred by BELLO Enriquez. Patient reports pain begins on the left side of his lower back and radiates to the center of his lower back. Patient shares the pain makes it difficult to walk. He has tried steroid injections in the past with relief. Patient states he has not tried PT yet. Denies prior injuries or surgeries to the back. Patient shares he has herniated discs in his lower back. Customs Examiner Required: No Accompanied by: daughter in law Allergies pravastatin Allergy (Intermediate, Verified 12/14/23 09:40) dry mouth Medication List - Last Reconciled 12/14/23 by Patricia Sun MD acetaminophen 500 mg PO Q6H PRN [adult diapers pull-ups As directed] allopurinol 200 mg (2 x 100 mg) PO DAILY amlodipine 5 mg PO DAILY 90 days atorvastatin 40 mg PO DAILY 90 days bisacodyl (Dulcolax (bisacodyl)) 10 mg (2 x 5 mg) PO ONCE 5 days bisacodyl (Dulcolax (bisacodyl)) 10 mg (2 x 5 mg) PO ONCE 3 days carbidopa-levodopa 25-100 mg 2 tabs PO BID 90 days cholecalciferol (vitamin D3) 25 mcg PO DAILY 90 days clonazepam 0.5 mg PO BEDTIME 30 days diclofenac sodium 1% (Voltaren Arthritis Pain) 2 grams topical QID PRN 30 days fenofibrate 54 mg PO DAILY 90 days fluticasone propionate 50 mcg/actuation 2 sprays intranasal DAILY lisinopril 40 mg PO DAILY 90 days meclizine 25 mg PO TID PRN 7 days mirabegron ER (Myrbetriq) 25 mg PO DAILY 90 days omeprazole 20 mg PO DAILY 90 days peg 3350-electrolytes 236-22.74-6.74 -5.86 gram (Golytely) 240 mL PO Q10M pramipexole 0.5 mg PO TID sennosides-docusate sodium 8.6-50 mg (Senna Plus) 2 tab-caps (2 x 8.6-50 mg) PO BEDTIME 60 days underpads (Bed Underpads) Use 8 pads per day walker walker with seat and wheels zolpidem 5 mg PO BEDTIME PRN 30 days HPI Comments Details: 78-year-old with history of hypertension, GERD, Parkinson's disease (managed by Dr. Jacob), chronic kidney disease stage 3 and urgency incontinence of urine. Referred from Orthopedics. Ortho follows him for left knee, injections. He has previously seen pain management for left SI joint injection. Follows Rheumatology for gout. Here with daughter in law who helped with translation. Chronic of lower back pain. He says he had lumbar MRI 12 years ago and was told to have disc herniation. No surgery. Constant, left sided, goes to mid/upper back, but does not radiate down to leg. Denies numbness or foot drop. Uses cane. No recent PT. [facility] Medical History (Updated 12/14/23 @ 10:02 by Patricia Sun MD) CKD (chronic kidney disease) stage 3, GFR 30-59 ml/min Skin lesion Left knee pain Chronic pain syndrome Sacroiliac dysfunction Sacroiliitis Spondylosis without myelopathy or radiculopathy, lumbar region Adult general medical exam Screening for colon cancer Leg edema Urgency incontinence Prostate cancer Parkinsons disease Mixed hyperlipidemia Essential hypertension GERD (gastroesophageal reflux disease) Lumbar degenerative disc disease Surgical History History of cataract surgery History of colonoscopy History of basal cell carcinoma (BCC) excision History of prostatectomy Family History Father No problems noted. Mother Diabetes Cancer Social History (Updated 12/14/23 @ 09:41 by KEEGAN Ng) Housing: Apartment Alcohol intake: former Patient Tobacco Use Status: Never used Tobacco e-Cigarette/Vaping Use: Never Used Second Hand Smoke Exposure: No service: No Current occupational status: disabled Current occupation: lt handed Cognitive needs: Yes Hearing needs: No Vision needs: No Review of Systems Const All systems reviewed & are unremarkable except as noted in HPI and below Physical Exam Vital Signs: BMI result Body Mass Index 32.7 Constitutional: Patient appears to be in no acute distress, well nourished and well developed. Patient was appropriately conversant and oriented. MSK: Stands up so forward. Knees bent when standing. No pain with palpation over the lumbar area. Tender left SI joint. Lumbar ROM was full. Bilateral hip, knee and ankle ROM WNL. No ligamentous laxity or crepitance. No increased effusion. Straight-leg raising test negative. FABERE test positive bilateral. Neurological: We will focal weakness in lower extremities. Ortiz?s negative bilaterally. Babinski was down going bilaterally. Clonus was negative. Quality Reporting (2019) Adult ([facility] 138/05/11/) Smoking risk assessment performed?: Yes Patient Tobacco Use Status: Never used Tobacco Results Reviewed Results Reviewed: Ordering Physician: Nile Askew MD Date of Service: 07/31/21 Procedure(s): XR lumbar spine 4V min Accession Number(s): [id number] cc: Nile Askew MD~ EXAMINATION: XR LUMBAR SPINE CLINICAL INFORMATION: Reason for Exam M47.816 - Spondylosis without myelopathy or radiculopathy... COMPARISON: None TECHNIQUE: Frontal lateral and coned-down L5-S1 frontal lateral, right and left obliques. FINDINGS: Five [id number] lumbar vertebrae were identified maintaining normal height and alignments. Narrowing of intervertebral disc spaces suggest underlying degenerative disc disease. Paravertebral soft tissues are unremarkable. There are radiolucencies, most likely superimposed bowel gas.. No radiographic evidence of osteolytic or osteoblastic lesions. XR/XR lumbar spine 4V min IMPRESSION: Mild narrowing of disc height and developed anterior osteophytes especially at L2-L3 suggests underlying degenerative disc disease. Bone alignments are satisfactory. No fracture. I reviewed records from the following: PCP Pain management Orthopedics Rheumatology Assessment & Plan Assessment & Plan (1) Sacroiliac joint dysfunction of left side: Code(s): M53.3 - Sacrococcygeal disorders, not elsewhere classified Category: Medical (2) Spondylosis without myelopathy or radiculopathy, lumbar region: Code(s): M47.816 - Spondylosis without myelopathy or radiculopathy, lumbar region Category: Medical Plan Longstanding history of left SI joint pain, in the setting of known lumbar spondylosis. Referring patient to physical therapy. We may need lumbar MRI if not improved with physical therapy. Assessment and plan discussed with patient, and patient was agreeable. All questions were answered thoroughly. Patricia Sun MD, EDUAR Board Certified, [place] [employer] and Rehabilitation (ABPMR) Board Certified, [place] [employer] Electrodiagnostic [employer] (ABEM) Coding Level of Care Code New Pt Level 4 (18867) Diagnoses Sacroiliac joint dysfunction of left side M53.3 Spondylosis without myelopathy or radiculopathy, lumbar region M47.816
== END 2023-12-14 10:00 | disposition home or self-care (01) ==
PROVIDERS: PCP Internal Medicine; Visit Provider Physical Medicine & Rehabilitation
DX: M53.3 Sacrococcygeal disorders, not elsewhere classified (principal); M47.816 Spondylosis without myelopathy or radiculopathy, lumbar region
CPT/HCPCS: 99203

== ENCOUNTER 2023-12-14 09:20 | Outpatient (REF) | payer MEDICARE, MEDICAID, SELFPAY ==
[2023-12-14 10:28] LABS: MANUAL DIFF FLAG NO
[2023-12-14 10:56] LABS: Basophils Percent Auto 0.3 % (0-2); Eosinophils Absolute Auto 0.1 X10*3/uL (0.0-0.4); Eosinophils Percent Auto 1.1 % (0-4); Hematocrit 39.3 % (42.0-52.0); Hemoglobin 13.2 g/dl (14.0-18.0); Imm Gran Abs Auto 0.07 X10*3/uL (0.00-0.03); Imm Gran Pct Auto 0.9 % (0.0-0.4); Lymphocytes Absolute Auto 1.3 X10*3/uL (1.2-4.9); Mean Corpuscular HGB Conc 33.6 g/dl (31.0-36.0); Mean Corpuscular Hemoglobin 31.8 pg (27.0-33.0); Mean Corpuscular Volume 94.7 fL (80.0-98.0); Mean Platelet Volume 11.6 fL (9.4-12.4); Monocytes Absolute Auto 0.7 X10*3/uL (0.1-1.2); Monocytes Percent Auto 8.8 % (2-11); Neutrophils Absolute Auto 5.4 x10*3/uL (2.0-8.3); Neutrophils Percent Auto 71.9 % (45-73); Platelet Count 149 X10*3/uL (160-400); Red Blood Count 4.15 X10*6/uL (4.60-5.80); Red Cell Distribution Width 14.2 % (11.0-16.0); White Blood Count 7.5 X10*3/uL (4.8-10.8)
[2023-12-14 11:27] LABS: Alanine Aminotransferase < 5 U/L (0-40); Albumin Level 4.4 g/dL (3.5-5.0); Alkaline Phosphatase 59 U/L (39-117); Anion Gap 13 (12-20); Aspartate Amino Transferase 13 U/L (5-37); Bilirubin Total 0.5 mg/dL (0.0-1.0); Blood Urea Nitrogen 37 mg/dL (9-16); Calcium 9.7 mg/dL (8.4-10.2); Carbon Dioxide 25 mmol/L (22-29); Chloride 105 mmol/L (96-108); Estimated Glomerular Filt Rate 42; Glucose Random 100 mg/dL (60-115); Potassium 4.5 mmol/L (3.3-5.1); Sodium 138 mmol/L (135-145); Total Protein 7.2 g/dL (6.5-8.0); Uric Acid 6.1 mg/dL (3.4-7.0)
== END 2023-12-14 09:21 | disposition home or self-care (01) ==
LOC: HO.LAB 09:20
PROVIDERS: Student in an Organized Health Care Education/Training Program; Absent Provider Nurse Practitioner Family; PCP Internal Medicine; Visit Provider Physical Medicine & Rehabilitation
DX: N39.41 Urge incontinence (principal); M10.9 Gout, unspecified; N32.81 Overactive bladder; M53.3 Sacrococcygeal disorders, not elsewhere classified; M47.816 Spondylosis without myelopathy or radiculopathy, lumbar region
CPT/HCPCS: 36415; 51798; 80053; 81003; 84550; 85025; 99202; 99212

== ENCOUNTER 2023-12-14 13:34 | Outpatient (AMB) | payer MEDICARE, MEDICAID, SELFPAY ==
--- NOTE | 2023-12-14 13:51 | A.OFFVIS_ITS ---
Intake Visit Reasons: follow up/PVR Intake Note: Patient presents today for follow up on: OAB and Prostate Cancer Urology Medication: none Antibiotic Allergy: None Blood Thinner: None PVR:22ml's Bonus Clerk Required: Yes Accompanied by: Unknown Allergies pravastatin Allergy (Intermediate, Verified 12/14/23 14:28) dry mouth Medication List - Last Reconciled 12/14/23 by REGIS Briceño acetaminophen 500 mg PO Q6H PRN [adult diapers pull-ups As directed] allopurinol 200 mg (2 x 100 mg) PO DAILY amlodipine 5 mg PO DAILY 90 days atorvastatin 40 mg PO DAILY 90 days bisacodyl (Dulcolax (bisacodyl)) 10 mg (2 x 5 mg) PO ONCE 5 days bisacodyl (Dulcolax (bisacodyl)) 10 mg (2 x 5 mg) PO ONCE 3 days carbidopa-levodopa 25-100 mg 2 tabs PO BID 90 days cholecalciferol (vitamin D3) 25 mcg PO DAILY 90 days clonazepam 0.5 mg PO BEDTIME 30 days diclofenac sodium 1% (Voltaren Arthritis Pain) 2 grams topical QID PRN 30 days fenofibrate 54 mg PO DAILY 90 days fluticasone propionate 50 mcg/actuation 2 sprays intranasal DAILY lisinopril 40 mg PO DAILY 90 days meclizine 25 mg PO TID PRN 7 days mirabegron ER (Myrbetriq) 25 mg PO DAILY 90 days omeprazole 20 mg PO DAILY 90 days peg 3350-electrolytes 236-22.74-6.74 -5.86 gram (Golytely) 240 mL PO Q10M pramipexole 0.5 mg PO TID sennosides-docusate sodium 8.6-50 mg (Senna Plus) 2 tab-caps (2 x 8.6-50 mg) PO BEDTIME 60 days underpads (Bed Underpads) Use 8 pads per day walker walker with seat and wheels zolpidem 5 mg PO BEDTIME PRN 30 days HPI Comments Details: Onur is a very pleasant 78-year-old male patient of Dr. Harrington who was accompanied by his daughter at today's office visit. He has a past medical history of chronic kidney disease, chronic pain syndrome, urinary incontinence, prostate cancer, Parkinson's disease, mixed hyperlipidemia, hypertension, GERD, and lumbar degenerative disc disease. He presents to the office today for follow-up of his urological conditions prostate cancer, urinary incontinence, and lower urinary tract symptoms. In discussion with the patient today he reports having stopped his Myrbetriq as he felt this was causing worsening urinary urgency and frequency. He discusses his longstanding history of lower urinary tract symptoms. He reports initially his most bothersome urinary issues urinary incontinence however feels this has been manageable. PSA was ordered prior to today's appointment however not completed. We discussed importance in doing so. He otherwise denies hematuria, dysuria, foul smelling urine, changes to urinary stream, flank pain, fever, and or chills. In office urinalysis results reviewed with the patient today. PVR 22 mL. Previous workup has included a renal ultrasound 06/09 bilateral kidneys with no calculi or hydronephrosis. Simple cyst in the lower pole of the right kidney measuring 5.4 cm for which no imaging follow-up is recommended per radiology report. We discussed at length potential causes for lower urinary tract symptoms patient is experiencing. We discussed bladder triggers/irritants. He otherwise offers no other issues or concerns at this time. Prostate cancer Prostatectomy in [place] many years ago PSA 06/07 < 0.05, 06/08 <0.05, 06/09 <0.1 Has also suffered from mild dribbling. Did encouraged to perform Kegel exercises. Previously responded to imipramine - no longer responding Overactive bladder Initial presentation urinary urgency and unsensed incontinence, Increasing frequency , He was using pads Background of Parkinson's and aged over 72 [facility] Medical History (Updated 12/14/23 @ 14:46 by Mary Serrano, [facility]-) Prostate cancer CKD (chronic kidney disease) stage 3, GFR 30-59 ml/min Skin lesion Left knee pain Chronic pain syndrome Sacroiliac dysfunction Sacroiliitis Spondylosis without myelopathy or radiculopathy, lumbar region Adult general medical exam Screening for colon cancer Leg edema Urgency incontinence Parkinsons disease Mixed hyperlipidemia Essential hypertension GERD (gastroesophageal reflux disease) Lumbar degenerative disc disease Surgical History History of cataract surgery History of colonoscopy History of basal cell carcinoma (BCC) excision History of prostatectomy Family History Father No problems noted. Mother Diabetes Cancer Social History Housing: Apartment Alcohol intake: former Patient Tobacco Use Status: Never used Tobacco e-Cigarette/Vaping Use: Never Used Second Hand Smoke Exposure: No service: No Current occupational status: disabled Current occupation: lt handed Cognitive needs: Yes Hearing needs: No Vision needs: No Review of Systems Const Reports as per HPI Eyes Reports no additional complaints ENT Reports no additional complaints Card Reports as per HPI Resp Reports no additional complaints GI Reports as per HPI Reports as per HPI Musc Reports as per HPI Neuro Reports as per HPI Psych Reports no additional complaints Endo Reports no additional complaints Dominic/Lymph Reports no additional complaints Aller/Immun Reports no additional complaints Physical Exam Const General: cooperative, healthy appearing, comfortable, no acute distress, well developed, alert and awake Orientation/consciousness: patient oriented x3 Limitations: ambulation with cane HEENT Head: Yes normal to inspection, Yes normocephalic and Yes atraumatic Ears: hearing grossly normal bilaterally Eyes General: appearance normal, both eyes and all related structures Neck Neck: Yes normal visual inspection and Yes trachea midline Chest Chest palpation & inspection: normal inspection of the chest Resp Effort & Inspection: normal respiratory effort and able to speak in complete sentences Cardio Rate: regular rate GI Inspection: Yes normal to inspection General: Yes no CVA tenderness Back/Spine/Pelvis Back: no CVA tenderness Skin General skin exam: no rashes or lesions noted Neuro General: patient oriented x3 Extrem General: Yes normal to inspection Psych Appearance: grossly normal and well kempt Mental Status: mental status grossly normal Speech and movement: Normal speech and movement present and Clear speech present Affect: normal affect Attitude: cooperative Thought process: Normal thought process present Thought content: Normal thought content present Insight: Fair insight present (Psych) Judgement: Fair judgement present (Psych) Office Procedures Post Void Residual Post Residual Void Post Void Residual (PVR): 37210-Upfu Void Residual by ultrasound Results AMB Urinalysis, Automated UA Leukoctes 0 Vlad/uL Last Edit by Brandyce Bress on 12/14/23 14:25 UA Nitrite Negative Last Edit by Brandyce Bress on 12/14/23 14:25 UA Urobilinogen 0.2 mg/dL Last Edit by Brandyce Bress on 12/14/23 14:25 UA Protein 0 mg/dL Last Edit by Brandyce Bress on 12/14/23 14:25 UA pH 5.5 Last Edit by Brandyce Bress on 12/14/23 14:25 UA Blood 0 Alexandro/uL Last Edit by Brandyce Bress on 12/14/23 14:25 UA Specific [place] 1.020 Last Edit by Brandyce Bress on 12/14/23 14:25 UA Ketone Last Edit by Brandyce Bress on 12/14/23 14:25 UA Bilirubin 0 mg/dL Last Edit by Klipfolioyce Bress on 12/14/23 14:25 UA Glucose 0 mg/dL Last Edit by Klipfolioyce Bress on 12/14/23 14:25 Quality Reporting (2019) Adult ([facility] 138/05/11/68) Smoking risk assessment performed?: Yes Patient Tobacco Use Status: Never used Tobacco Results Reviewed Results Reviewed: Laboratory Last Values Urine pH (Auto) 5.5 12/14/23 14:19 Specific [place] (Auto) 1.020 12/14/23 14:19 Urine Protein (Auto) 0 mg/dL 12/14/23 14:19 Glucose (UA)(Auto) 0 mg/dL 12/14/23 14:19 Urine Blood (Auto) 0 Alexandro/uL 12/14/23 14:19 Urine Nitrite (Auto) Negative 12/14/23 14:19 Urine Bilirubin (Auto) 0 mg/dL 12/14/23 14:19 Urine Urobilinogen (Auto) 0.2 mg/dL 12/14/23 14:19 Leukocyte Esterase (Auto) 0 Vlad/uL 12/14/23 14:19 Assessment & Plan Assessment & Plan (1) Urgency incontinence: Code(s): N39.41 - Urge incontinence Category: Medical (2) Overactive bladder: Code(s): N32.81 - Overactive bladder Category: Medical Plan In office urinalysis results reviewed with the patient today; as noted above. PVR 22 mL. Stop Myrbetriq. Start Gemtesa as discussed and prescribed. Discussed possible near future in office urodynamics for further assessment evaluation. Discussed importance of obtaining PSA for surveillance monitoring of history of prostate cancer. Discussed bladder triggers/irritants. Discussed importance of timed/scheduled voiding given decreased mobility. Follow-up in 1-2 months with PVR and PSA; or sooner with any issues, concerns, or questions Orders: Orders AMB Urinalysis Automated Today Z13.9 - Encounter for screening, unspecified Prostate Specific Antigen 12/07/23 C61 - Malignant neoplasm of prostate AMB Post Void Residual by ultrasound Today N39.41 - Urge incontinence Medications: New vibegron (Gemtesa) 75 mg PO DAILY 30 days 30 tabs 3RF N32.81 - Overactive bladder Discontinued mirabegron ER (Myrbetriq) Discontinued Reason: Doctor's Order 25 mg PO DAILY 90 days 90 tabs 3RF N32.81 - Overactive bladder Patient Instructions: The patient had an opportunity to ask questions regarding the treatment plan. All questions were answered. Physical exam, labs, and imaging were discussed and reviewed in detail. As well as risks, benefits, and discussion of treatment choices. No major barriers to understanding were identified. The patient expressed understanding and agreement with the above treatment plan. The patient was made aware they should contact our office by phone for worsening of their current condition, the appearance of new symptoms, or with any questions or concerns. Compliance is encouraged with any medications and follow up testing that is ordered. It is a privilege to be allowed the opportunity to participate in? your urological care.? Again, if you have any questions or co ncerns If you have any questions or concerns please do not hesitate to contact me. The office is [phone]. This note is constructed using voice recognition software. While every effort has been made to ensure accuracy supervisor electronics testing errors may have been included. Yours sincerely, CAM Briceño-YOSELYN Coding Level of Care Code Est Pt Level 4 (11052) Complex EM visit Add On G2211 Diagnoses Urgency incontinence N39.41 Overactive bladder N32.81 CPT Codes Post Residual Void - PVR CPT Code: 45527-Gvsz Void Residual by ultrasound ([id number])
== END 2023-12-14 14:35 | disposition home or self-care (01) ==
PROVIDERS: PCP Internal Medicine; Visit Provider Nurse Practitioner Family
DX: N39.41 Urge incontinence (principal); N32.81 Overactive bladder; Z13.9 Encounter for screening, unspecified
CPT/HCPCS: 99214; G2211

== ENCOUNTER 2024-01-11 23:24 | Emergency (ER) | payer MEDICARE, MEDICAID, SELFPAY ==
--- NOTE | ~2024-01-11 | XR_ITS ---
EXAMINATION: XR CHEST CLINICAL INFORMATION: Cough. COMPARISON: Chest radiograph dated August 18, 2023. TECHNIQUE: Frontal view of the chest was obtained. FINDINGS: The heart is normal in size. The lungs are clear. No pleural effusion. No pneumothorax. No acute osseous abnormality. XR/XR chest 1V IMPRESSION: No acute cardiopulmonary disease. Electronically signed by: Sam Trejo DO 01/12/2024 12:27 AM EDT
[2024-01-11 23:27] VITALS: BP 145/76; PULSE 75; RESP 18; TEMP 37.1; O2SAT 96; BMI 39.4
--- NOTE | 2024-01-12 00:34 | ED.URI ---
HPI - URI/Sore Throat General Chief Complaint: Upper Respiratory Symptoms Stated Complaint: cough Time Seen by Provider: 01/12/24 00:24 Source: patient, family (Son and daughter in-law) and certified court interpreter Mode of arrival: ambulatory Limitations: no limitations History of Present Illness ED Provider: DR. Irby HPI Narrative: 78-year-old male brought in with his family for evaluation of 2 days of dry cough, generalized body ache, no shortness of breath, patient is complaining of bilateral rib pain with coughing. Was exposed to his sick son with similar symptoms. Related Data Home Medications ?Medication ?Instructions ?Recorded ?Confirmed fluticasone propionate 50 2 spray intranasal DAILY 12/14/23 12/14/23 mcg/actuation nasal spray,suspension Previous Rx's ?Medication ?Instructions ?Recorded acetaminophen 500 mg tablet 500 mg PO Q6H PRN pain #30 tabs 09/07/21 walker #1 ea 05/12/22 allopurinol 100 mg tablet 200 mg (2 x 100 mg) PO DAILY #180 07/11/23 tabs bisacodyl 5 mg tablet,delayed 10 mg (2 x 5 mg) PO ONCE colon 08/24/23 release (Dulcolax (bisacodyl)) prep 3 days #6 tabs atorvastatin 40 mg tablet 40 mg PO DAILY 90 days #90 tabs 09/26/23 cholecalciferol (vitamin D3) 25 25 mcg PO DAILY 90 days #90 caps 09/26/23 mcg (1,000 unit) capsule lisinopril 40 mg tablet 40 mg PO DAILY 90 days #90 tabs 09/26/23 omeprazole 20 mg capsule,delayed 20 mg PO DAILY 90 days #90 caps 09/26/23 release meclizine 25 mg tablet 25 mg PO TID PRN dizziness 7 days 10/11/23 #21 tabs diclofenac sodium 1 % topical gel 2 g topical QID PRN Arthritis pain 10/16/23 (Voltaren Arthritis Pain) 30 days #100 grams adult diapers pull-ups #240 ea 11/22/23 amlodipine 5 mg tablet 5 mg PO DAILY 90 days #90 tabs 11/22/23 underpads (Bed Underpads) #240 ea 11/22/23 bisacodyl 5 mg tablet,delayed 10 mg (2 x 5 mg) PO ONCE 5 days 12/05/23 release (Dulcolax (bisacodyl)) #10 tabs peg 3350-electrolytes 236 240 ml PO Q10M colon prep #4,000 mL 12/05/23 gram-22.74 gram-6.74 gram-5.86 gram solution (Golytely) vibegron 75 mg tablet (Gemtesa) 75 mg PO DAILY 30 days #30 tabs 12/14/23 pramipexole 0.5 mg tablet 0.5 mg PO TID 15 days #45 tabs 12/19/23 carbidopa 25 mg-levodopa 100 mg 2 tab PO BID 90 days #360 tabs 12/25/23 tablet clonazepam 0.5 mg tablet 0.5 mg PO BEDTIME 30 days #30 tabs 12/26/23 fenofibrate 54 mg tablet 54 mg PO DAILY 90 days #90 tabs 01/02/24 sennosides 8.6 mg-docusate sodium 2 tab-cap (2 x 8.6-50 mg) PO 01/02/24 50 mg capsule (Senna Plus) BEDTIME 60 days #120 caps zolpidem 5 mg tablet 5 mg PO BEDTIME PRN insomnia 30 01/06/24 days #30 tabs albuterol sulfate 90 mcg/actuation 2 puff inhalation Q6H PRN 01/12/24 aerosol inhaler shortness of breath or wheezing #8.5 grams azithromycin 250 mg tablet See Rx Instructions PO .COMPLEX #6 01/12/24 (Zithromax Z-Marquis) tabs guaifenesin 200 mg/5 mL oral liquid 200 mg (5 mL) PO Q4H PRN cough 01/12/24 #118 mL prednisone 20 mg tablet 20 mg PO BID #10 tabs 01/12/24 Allergies Allergy/AdvReac Type Severity Reaction Status Date / Time pravastatin Allergy Intermediate dry mouth Verified 01/11/24 23:27 Review of Systems Review of Systems: All other systems are reviewed and are negative Constitutional: Reports as per HPI and Reports no additional constitutional complaints Eyes: Reports as per HPI and Reports no additional eye complaints Reports system reviewed and no additional complaints, except as documented Cardiovascular: Reports as per HPI and Reports no additional cardiovascular complaints Respiratory: Reports as per HPI and Reports no additional respiratory complaints Gastrointestinal: Reports as per HPI and Reports no additional gastrointestinal complaints Genitourinary: Reports no additional female genitourinary complaints Musculoskeletal: Reports no additional musculoskeletal complaints Skin/Breast: Reports system reviewed and no additional complaints, except as docu Psychiatric: Reports no additional psychiatric complaints Endocrine: Reports no additional endocrine complaints Hematologic/Lymphatic: Reports no additional hematologic/lymphatic complaints Allergic/Immunologic: Reports no additional allergic/immunologic complaints Reports system reviewed and no additional complaints, except as documented and Reports Abnormal speech present [facility] Past Medical History Medical History Prostate cancer CKD (chronic kidney disease) stage 3, GFR 30-59 ml/min Skin lesion Left knee pain Chronic pain syndrome Sacroiliac dysfunction Sacroiliitis Spondylosis without myelopathy or radiculopathy, lumbar region Adult general medical exam Screening for colon cancer Leg edema Urgency incontinence Parkinsons disease Mixed hyperlipidemia Essential hypertension GERD (gastroesophageal reflux disease) Lumbar degenerative disc disease Surgical History History of cataract surgery History of colonoscopy History of basal cell carcinoma (BCC) excision History of prostatectomy Family History Family History Father No problems noted. Mother Diabetes Cancer Social History Social History Housing: Apartment Alcohol intake: former Patient Tobacco Use Status: Never used Tobacco Smoked in Last 30 Days: No e-Cigarette/Vaping Use: Never Used Second Hand Smoke Exposure: No Use of substances other than those prescribed or required for medical reasons: No Advance Directives: Yes Advance Directives on File: Yes Advance Directives Date on File: 08/18/23 Do you have a plan to hurt others: No Plan service: No Current occupational status: disabled Current occupation: lt handed Cognitive needs: Yes Hearing needs: No Vision needs: No Physical Exam Vital Signs: Vital Signs: Last Vital Signs Temp 97.6 F 01/12/24 02:58 Pulse 82 01/12/24 02:58 Resp 19 01/12/24 02:58 BP 126/69 01/12/24 02:58 Pulse Ox 97 01/12/24 02:58 O2 Del Method Room Air 01/12/24 02:58 BMI result Body Mass Index 39.4 Vital signs have been reviewed and appear to be correct. Blood pressure elevated. Heart rate normal. Respiratory rate normal. Temperature normal. Oxygen saturation normal. Appearance: Alert. Oriented X3. No acute distress. Head: Normal external exam. Normocephalic. Atraumatic. No Manuel signs noted. No raccoon eyes noted Eyes: PERRLA. EOMI. Conjunctiva and sclera normal. Eyelids normal. ENT: TM's Normal. Pharynx normal. Uvula midline. Moist mucous membranes. No trismus noted. No drooling noted. No muffled voice noted. Neck: Normal inspection. Neck supple. FROM. No adenopathy. Thyroid Normal. No meningeal signs. No neck mass noted. CVS: Normal heart rate and rhythm. Heart sound normal. No murmurs noted. Pulses normal throughout. Respiratory: No respiratory distress. Painless inspiration, in bilateral diffuse expiratory wheezing with prolonged expiration. Chest nontender. No accessory muscle usage noted or decreased air movement noted. Abdomen: Soft and nontender. Bowel sounds normal in all 4 quadrants. No distention noted. No organomegaly noted. No visible injury noted. Back: No CVA tenderness. Full range of motion noted. Skin: Skin warm and dry. Normal skin color. Normal skin turgor. No rashes/lesions/lacerations noted. Extremities: No lower extremity edema. Extremities exhibit normal range of motion. Extremities nontender. Neuro: Oriented X 3. Cranial nerve exam: II-XII are grossly intact No motor deficit. No sensory deficit. Reflexes normal. Course Reevaluation(s) Reevaluation #1: Patient feels better, acute bronchitis will treat with prednisone, bronchodilator, and coughing medicine. VSS, O2 sat is 97%, RR 19. Time: 02:30 Medications Administered Discontinued Medications Generic Name Dose Route Start Last Admin Trade Name Freq PRN Reason Stop Dose Admin Albuterol/Ipratropium 3 ml 01/12/24 00:43 01/12/24 00:48 Albuterol/Iprat 2.5/0.5mg 3 Ml Ampul.Neb INHALE 01/12/24 00:44 3 ml ONCE ONE Administration Guaifenesin/Codeine Phosphate 10 ml 01/12/24 00:32 01/12/24 00:45 Guaifen/Codeine Sf 200/20/10ml 10 Ml Liquid PO 10 ml Q6H PRN Administration Cough Prednisone 40 mg 1025/24 00:32 01/12/24 00:41 Prednisone 20 Mg Tablet PO 01/12/24 00:33 40 mg ONCE ONE Administration Medical Decision Making Differential Diagnosis Differential Diagnoses: The differential diagnosis associated with the presentation includes (Pneumonia, pneumothorax KRISTAN on CKI, electrolyte derangement, viral upper respiratory infection, severe anemia.) Admission/Observation Consideration of admission/observation: Escalation of care including admission/observation considered Lab Data MDM Lab Attestation statement: I reviewed the patient's lab results. 01/12/24 01:10 01/12/24 01:10 Labs: Lab Results 01/11/24 01/12/24 Range/Units 23:47 01:10 WBC 6.4 (4.8-10.8) X10*3/uL RBC 3.68 L (4.60-5.80) X10*6/uL Hgb 11.8 L (14.0-18.0) g/dl Hct 34.4 L (42.0-52.0) % MCV 93.5 (80.0-98.0) fL MCH 32.1 (27.0-33.0) pg MCHC 34.3 (31.0-36.0) g/dl RDW 14.3 (11.0-16.0) % Plt Count 173 (160-400) X10*3/uL MPV 11.3 (9.4-12.4) fL Immature Gran % (Auto) 1.1 H (0.0-0.4) % Neut % (Auto) 59.7 (45-73) % Lymph % (Auto) 27.2 (20-40) % Brule % (Auto) 8.4 (2-11) % Eos % (Auto) 3.3 (0-4) % Baso % (Auto) 0.3 (0-2) % Lymph # (Auto) 1.8 (1.2-4.9) X10*3/uL Brule # (Auto) 0.5 (0.1-1.2) X10*3/uL Eos # (Auto) 0.2 (0.0-0.4) X10*3/uL Baso # (Auto) 0.0 (0.0-0.2) X10*3/uL Abs Immat Gran (auto) 0.07 H (0.00-0.03) X10*3/uL Absolute Neuts (auto) 3.8 (2.0-8.3) x10*3/uL Absolute Nucleated RBC 0.000 (0.0-0.012) X10*3/uL Nucleated RBC % (auto) 0.0 (0.0-0.2) /100WBC Sodium 140 (135-145) mmol/L Potassium 3.9 (3.3-5.1) mmol/L Chloride 110 H (96-108) mmol/L Carbon Dioxide 24 (22-29) mmol/L Anion Gap 10 L (12-20) BUN 24 H (9-16) mg/dL Creatinine 1.11 (0.5-1.4) mg/dL Estim Creat Clear Calc 61.7 Estimated GFR > 60 Random Glucose 170 H (60-115) mg/dL Calcium 8.9 D (8.4-10.2) mg/dL Total Bilirubin 0.2 (0.0-1.0) mg/dL Direct Bilirubin < 0.2 (0.0-0.5) mg/dL AST 28 (5-37) U/L ALT 16 (0-40) U/L Alkaline Phosphatase 81 (39-117) U/L Troponin I High Sens 5.6 (<3.5-35.0) ng/L B-Natriuretic Peptide 189 H (<100) pg/mL Total Protein 6.3 L (6.5-8.0) g/dL Albumin 3.8 (3.5-5.0) g/dL Lipase 12 (8-78) U/L Influenza Type A (PCR) NEGATIVE (Negative) Influenza Type B (PCR) NEGATIVE (Negative) RSV RNA Qual (PCR) NEGATIVE (Negative) SARS-CoV-2 RNA (RT-PCR) NEGATIVE (Negative) Independent Interpretation I performed an independent interpretation of an: Plain X-Ray (Chest: No acute intrathoracic pathology.) Radiology Impression Discussion of test interpretation with radiology: I have reviewed the radiologist's reading. Discharge Plan Discharge Clinical Impression: Acute viral syndrome Patient Disposition: Home, Self-Care Instructions: Viral Syndrome (ED) Prescriptions: New azithromycin [Zithromax Z-Marquis] 250 mg tablet See Rx Instructions .ROUTE .COMPLEX Qty: 6 0RF Rx Instructions: For 250 mg dose pack: take 500 mg today (day 1), then 250 mg for 4 days (days 2-5) prednisone 20 mg tablet 20 mg PO BID Qty: 10 0RF albuterol sulfate 90 mcg/actuation HFA aerosol inhaler 2 puff inhalation Q6H PRN (Reason: shortness of breath or wheezing) Qty: 8.5 0RF guaifenesin 200 mg/5 mL liquid 200 mg PO Q4H PRN (Reason: cough) Qty: 118 0RF No Action allopurinol 100 mg tablet 200 mg PO DAILY Qty: 180 0RF atorvastatin 40 mg tablet 40 mg PO DAILY 90 Days Qty: 90 2RF cholecalciferol (vitamin D3) 25 mcg (1,000 unit) capsule 25 mcg PO DAILY 90 Days Qty: 90 1RF lisinopril 40 mg tablet 40 mg PO DAILY 90 Days Qty: 90 1RF omeprazole 20 mg capsule,delayed release(DR/EC) 20 mg PO DAILY 90 Days Qty: 90 3RF meclizine 25 mg tablet 25 mg PO TID PRN (Reason: dizziness) 7 Days Qty: 21 0RF diclofenac sodium [Voltaren Arthritis Pain] 1 % gel 2 g topical QID PRN (Reason: Arthritis pain) 30 Days Qty: 100 1RF Rx Instructions: apply to single elbow, wrist or hand; for hand includes palm/fingers/back of hand pramipexole 0.5 mg tablet 0.5 mg PO TID 15 Days Qty: 45 0RF carbidopa-levodopa 25-100 mg tablet 2 tab PO BID 90 Days Qty: 360 1RF clonazepam 0.5 mg tablet 0.5 mg PO BEDTIME 30 Days Qty: 30 0RF fenofibrate 54 mg tablet 54 mg PO DAILY 90 Days Qty: 90 1RF Senna Plus 8.6-50 mg capsule 2 tab-cap PO BEDTIME 60 Days Qty: 120 1RF zolpidem 5 mg tablet 5 mg PO BEDTIME PRN (Reason: insomnia) 30 Days Qty: 30 0RF acetaminophen 500 mg tablet 500 mg PO Q6H PRN (Reason: pain) Qty: 30 0RF amlodipine 5 mg tablet 5 mg PO DAILY 90 Days Qty: 90 1RF (DME) underpads [Bed Underpads] Pad See Rx Instructions .Route Qty: 240 11RF Rx Instructions: Use 8 pads per day (DME) adult diapers pull-ups XL See Rx Instructions .Route .MEDSUPPLY Qty: 240 11RF Rx Instructions: As directed (DME) walker Misc See Rx Instructions .Route Qty: 1 0RF Rx Instructions: walker with seat and wheels bisacodyl [Dulcolax (bisacodyl)] 5 mg tablet,delayed release (DR/EC) 10 mg PO ONCE 3 Days Qty: 6 0RF Rx Instructions: Take 2 tablets at 12 pm daily starting 3 days before colonoscopy appointment Gemtesa 75 mg tablet 75 mg PO DAILY 30 Days Qty: 30 3RF fluticasone propionate 50 mcg/actuation spray,suspension 2 spray intranasal DAILY bisacodyl [Dulcolax (bisacodyl)] 5 mg tablet,delayed release (DR/EC) 10 mg PO ONCE 5 Days Qty: 10 0RF Rx Instructions: Take 2 tablets at 12 pm starting 5 days before colonoscopy appointment peg 3350-electrolytes [Golytely] 236-22.74-6.74 -5.86 gram recon soln 240 ml PO Q10M Qty: 4000 0RF Rx Instructions: until fecal effluent is clear; do not exceed a total volume [id number] mL Referrals: Susy Sylvester MD [Primary Care Provider] - Interventions: ED Discharge Assessment Last Done: 01/12/24 02:58 Discharge Date/Time: 01/12/24 02:59 Print Language: Mongolian
--- NOTE | 2024-01-12 00:35 | ECG_ITS ---
Test Reason : SOB Blood Pressure : / mmHG Vent. Rate : 062 BPM Atrial Rate : 062 BPM P-R Int : 160 ms QRS Dur : 100 ms QT Int : 426 ms P-R-T Axes : 050 015 027 degrees QTc Int : 432 ms Normal sinus rhythm Minimal voltage criteria for LVH, may be normal variant ( R in aVL ) Borderline ECG When compared with ECG of 21-SEP-2020 17:02, No significant change was found Referred By: Job Irby Electronically Signed By:Krish Cifuentes
[2024-01-12 00:39] LABS: Influenza A PCR NEGATIVE (Negative); Influenza B PCR NEGATIVE (Negative); Resp Syncy Virus RNA Qual PCR NEGATIVE (Negative); SARS COV2 PCR INHOUSE NEGATIVE (Negative)
[2024-01-12] MEDS: predniSONE 20 MG TABLET 40 MG PO (00:41)
[2024-01-12] MEDS: guaiFEN/Codeine SF 200/20/10ML 10 ML LIQUID PO (00:45)
[2024-01-12] MEDS: Albuterol/Iprat 2.5/0.5MG 3 ML AMPUL.NEB INHALE (00:48)
[2024-01-12 01:15] LABS: MANUAL DIFF FLAG NO
[2024-01-12 01:17] LABS: Basophils Percent Auto 0.3 % (0-2); Eosinophils Absolute Auto 0.2 X10*3/uL (0.0-0.4); Eosinophils Percent Auto 3.3 % (0-4); Hematocrit 34.4 % (42.0-52.0); Hemoglobin 11.8 g/dl (14.0-18.0); Imm Gran Abs Auto 0.07 X10*3/uL (0.00-0.03); Imm Gran Pct Auto 1.1 % (0.0-0.4); Lymphocytes Absolute Auto 1.8 X10*3/uL (1.2-4.9); Lymphocytes Percent Auto 27.2 % (20-40); Mean Corpuscular HGB Conc 34.3 g/dl (31.0-36.0); Mean Corpuscular Hemoglobin 32.1 pg (27.0-33.0); Mean Corpuscular Volume 93.5 fL (80.0-98.0); Mean Platelet Volume 11.3 fL (9.4-12.4); Monocytes Absolute Auto 0.5 X10*3/uL (0.1-1.2); Monocytes Percent Auto 8.4 % (2-11); Neutrophils Absolute Auto 3.8 x10*3/uL (2.0-8.3); Neutrophils Percent Auto 59.7 % (45-73); Platelet Count 173 X10*3/uL (160-400); Red Blood Count 3.68 X10*6/uL (4.60-5.80); Red Cell Distribution Width 14.3 % (11.0-16.0); White Blood Count 6.4 X10*3/uL (4.8-10.8)
[2024-01-12 01:31] LABS: Alanine Aminotransferase 16 U/L (0-40); Albumin Level 3.8 g/dL (3.5-5.0); Alkaline Phosphatase 81 U/L (39-117); Anion Gap 10 (12-20); Aspartate Amino Transferase 28 U/L (5-37); Bilirubin Direct < 0.2 mg/dL (0.0-0.5); Bilirubin Total 0.2 mg/dL (0.0-1.0); Blood Urea Nitrogen 24 mg/dL (9-16); Calcium 8.9 mg/dL (8.4-10.2); Carbon Dioxide 24 mmol/L (22-29); Chloride 110 mmol/L (96-108); Creatinine Clr Calc Pharmacy 61.7; Estimated Glomerular Filt Rate > 60; Glucose Random 170 mg/dL (60-115); Lipase 12 U/L (8-78); Potassium 3.9 mmol/L (3.3-5.1); Sodium 140 mmol/L (135-145); Total Protein 6.3 g/dL (6.5-8.0)
[2024-01-12 01:36] LABS: B Type Natriuretic Peptide 189 pg/mL (<100)
[2024-01-12 01:38] LABS: Troponin-I High Sensitivity 5.6 ng/L (<3.5-35.0)
[2024-01-12 02:00] VITALS: O2SAT 97
[2024-01-12 02:11] VITALS: BP 126/69; PULSE 82; RESP 19; TEMP 36.4; O2SAT 97
[2024-01-12 02:58] VITALS: BP 126/69; PULSE 82; RESP 19; TEMP 36.4; O2SAT 97
== END 2024-01-12 02:59 | disposition home or self-care (01) ==
PROVIDERS: Emergency Provider Emergency Medicine; PCP Internal Medicine
DX: B34.9 Viral infection, unspecified (principal); R05.9 Cough, unspecified; M79.10 Myalgia, unspecified site; R07.81 Pleurodynia; R06.02 Shortness of breath; Z03.818 Encounter for observation for suspected exposure to other biological agents ruled out; Z79.899 Other long term (current) drug therapy
CPT/HCPCS: 0241U; 36415; 71045; 80048; 80076; 83690; 83880; 84484; 85025; 93005; 99284; 99285

== ENCOUNTER → 2024-01-12 00:35 | Outpatient (BNV) | payer MEDICARE, MEDICAID, SELFPAY | PROVIDERS: Emergency Provider Emergency Medicine; PCP Internal Medicine; Visit Provider Internal Medicine Cardiovascular Disease | DX: R06.02 Shortness of breath (principal); R94.31 Abnormal electrocardiogram [ECG] [EKG] | CPT/HCPCS: 93010 ==

== ENCOUNTER 2024-02-01 06:28 | Outpatient (REF) | payer MEDICARE, MEDICAID, SELFPAY ==
[2024-02-01 08:32] LABS: Prostate Specific Antigen < 0.10 ng/mL (<0.05-4.0)
== END 2024-02-01 06:29 | disposition home or self-care (01) ==
LOC: HO.LAB 06:28
PROVIDERS: PCP Internal Medicine; Visit Provider Nurse Practitioner Family
DX: N39.41 Urge incontinence (principal); C61 Malignant neoplasm of prostate; Z12.5 Encounter for screening for malignant neoplasm of prostate; N32.81 Overactive bladder
CPT/HCPCS: 36415; 51798; 81003; 84153; 99212

== ENCOUNTER 2024-02-01 15:18 | Outpatient (AMB) | payer MEDICARE, MEDICAID, SELFPAY ==
--- NOTE | 2024-02-01 15:33 | A.OFFVIS_ITS ---
Intake Visit Reasons: 2m/PSA/PVR Intake Note: Patient presents today for follow up on: OAB and Prostate Cancer Urology Medication: none Antibiotic Allergy: None Blood Thinner: None PVR:76ml's Sales Service Coordinator Required: Yes Accompanied by: Unknown Allergies pravastatin Allergy (Intermediate, Verified 02/02/24 10:41) dry mouth Medication List - Last Reconciled 02/02/24 by REGIS Briceño acetaminophen 500 mg PO Q6H PRN [adult diapers pull-ups As directed] albuterol sulfate 90 mcg/actuation 2 puffs inhalation Q6H PRN allopurinol 200 mg (2 x 100 mg) PO DAILY amlodipine 5 mg PO DAILY 90 days atorvastatin 40 mg PO DAILY 90 days azithromycin (Zithromax Z-Marquis) For 250 mg dose pack: take 500 mg today (day 1), then 250 mg for 4 days (days 2-5) bisacodyl (Dulcolax (bisacodyl)) 10 mg (2 x 5 mg) PO ONCE 5 days bisacodyl (Dulcolax (bisacodyl)) 10 mg (2 x 5 mg) PO ONCE 3 days carbidopa-levodopa 25-100 mg 2 tabs PO BID 90 days cholecalciferol (vitamin D3) 25 mcg PO DAILY 90 days clonazepam 0.5 mg PO BEDTIME 30 days diclofenac sodium 1% (Voltaren Arthritis Pain) 2 grams topical QID PRN 30 days fenofibrate 54 mg PO DAILY 90 days fluticasone propionate 50 mcg/actuation 2 sprays intranasal DAILY furosemide 20 mg PO DAILY PRN 90 days guaifenesin 200 mg (5 mL) PO Q4H PRN lisinopril 40 mg PO DAILY 90 days meclizine 25 mg PO TID PRN 7 days omeprazole 20 mg PO DAILY 90 days peg 3350-electrolytes 236-22.74-6.74 -5.86 gram (Golytely) 240 mL PO Q10M pramipexole 0.5 mg PO TID 15 days prednisone 20 mg PO BID sennosides-docusate sodium 8.6-50 mg (Senna Plus) 2 tab-caps (2 x 8.6-50 mg) PO BEDTIME 60 days underpads (Bed Underpads) Use 8 pads per day vibegron (Gemtesa) 75 mg PO DAILY 30 days walker walker with seat and wheels zolpidem 5 mg PO BEDTIME PRN 30 days HPI Comments Details: Onur is a very pleasant 78-year-old male patient of Dr. Harrington who was accompanied by his son at today's office visit. He has a past medical history of chronic kidney disease, chronic pain syndrome, urinary incontinence, prostate cancer, Parkinson's disease, mixed hyperlipidemia, hypertension, GERD, and lumbar degenerative disc disease. He presents to the office today for follow-up of his urological conditions prostate cancer, urinary incontinence, and lower urinary tract symptoms. Of note, patient was seen approximately 6 weeks ago at which time a PSA was ordered as patient has a history of prostate cancer and no recent PSA had been obtained. These results were reviewed with the patient and his son today as noted and trended below. He otherwise denies any bothersome urinary issues or concerns. He reports be happy with his current voiding parameters on Gemtesa 75mg daily. He otherwise denies hematuria, dysuria, foul smelling urine, changes to urinary stream, flank pain, fever, and or chills. In office urinalysis results reviewed with the patient today. PVR 76 mL. Previous workup has included a renal ultrasound 06/09 bilateral kidneys with no calculi or hydronephrosis. Simple cyst in the lower pole of the right kidney measuring 5.4 cm for which no imaging follow-up is recommended per radiology report. We discussed bladder triggers/irritants as well as timed/scheduled voiding giving decreased mobility. He otherwise offers no other issues or concerns at this time. Prostate cancer Prostatectomy in [place] many years ago PSA 06/07 < 0.05, 06/08 <0.05, 06/09 <0.1, 02/10 <0.10 Has also suffered from mild dribbling. Did encouraged to perform Kegel exercises. Previously responded to imipramine - no longer responding Overactive bladder Initial presentation urinary urgency and unsensed incontinence, Increasing frequency , He was using pads Background of Parkinson's and aged over 72 [facility] Medical History Prostate cancer CKD (chronic kidney disease) stage 3, GFR 30-59 ml/min Skin lesion Left knee pain Chronic pain syndrome Sacroiliac dysfunction Sacroiliitis Spondylosis without myelopathy or radiculopathy, lumbar region Adult general medical exam Screening for colon cancer Leg edema Urgency incontinence Parkinsons disease Mixed hyperlipidemia Essential hypertension GERD (gastroesophageal reflux disease) Lumbar degenerative disc disease Surgical History History of cataract surgery History of colonoscopy History of basal cell carcinoma (BCC) excision History of prostatectomy Family History Father No problems noted. Mother Diabetes Cancer Social History Housing: Apartment Alcohol intake: former Patient Tobacco Use Status: Never used Tobacco e-Cigarette/Vaping Use: Never Used Second Hand Smoke Exposure: No Advance Directives Date on File: 08/18/23 service: No Current occupational status: disabled Current occupation: lt handed Cognitive needs: Yes Hearing needs: No Vision needs: No Review of Systems Const Reports as per HPI Eyes Reports no additional complaints ENT Reports no additional complaints Card Reports as per HPI Resp Reports no additional complaints GI Reports as per HPI Reports as per HPI Musc Reports as per HPI Neuro Reports as per HPI Psych Reports no additional complaints Endo Reports no additional complaints Dominic/Lymph Reports no additional complaints Aller/Immun Reports no additional complaints Physical Exam Const General: cooperative, healthy appearing, comfortable, no acute distress, well developed, alert and awake Orientation/consciousness: patient oriented x3 Limitations: ambulation with cane HEENT Head: Yes normal to inspection, Yes normocephalic and Yes atraumatic Ears: hearing grossly normal bilaterally Eyes General: appearance normal, both eyes and all related structures Neck Neck: Yes normal visual inspection and Yes trachea midline Chest Chest palpation & inspection: normal inspection of the chest Resp Effort & Inspection: normal respiratory effort and able to speak in complete sentences Cardio Rate: regular rate GI Inspection: Yes normal to inspection General: Yes no CVA tenderness Back/Spine/Pelvis Back: no CVA tenderness Skin General skin exam: no rashes or lesions noted Neuro General: patient oriented x3 Extrem General: Yes normal to inspection Psych Appearance: grossly normal and well kempt Mental Status: mental status grossly normal Speech and movement: Normal speech and movement present and Clear speech present Affect: normal affect Attitude: cooperative Thought process: Normal thought process present Thought content: Normal thought content present Insight: Fair insight present (Psych) Judgement: Fair judgement present (Psych) Office Procedures Post Void Residual Post Residual Void Post Void Residual (PVR): 76 [id number] Void Residual by ultrasound Results AMB Urinalysis, Automated UA Leukoctes 0 Vlad/uL Last Edit by [employer] Ordering on 02/01/24 16:46 UA Nitrite Last Edit by [employer] Ordering on 02/01/24 16:46 UA Urobilinogen 0.2 mg/dL Last Edit by [employer] Ordering on 02/01/24 16:46 UA Protein 0 mg/dL Last Edit by [employer] Ordering on 02/01/24 16:46 UA pH 6.0 Last Edit by [employer] Ordering on 02/01/24 16:46 UA Blood 10 Alexandro/uL Last Edit by [employer] Ordering on 02/01/24 16:46 UA Specific [place] 1.015 Last Edit by [employer] Ordering on 02/01/24 16:46 UA Ketone Last Edit by [employer] Ordering on 02/01/24 16:46 UA Bilirubin 0 mg/dL Last Edit by [employer] Ordering on 02/01/24 16:46 UA Glucose 0 mg/dL Last Edit by [employer] Ordering on 02/01/24 16:46 Quality Reporting (2019) Adult ([facility] 138/05/11/68) Smoking risk assessment performed?: Yes Patient Tobacco Use Status: Never used Tobacco Results Reviewed Results Reviewed: Laboratory Last Values Urine pH (Auto) 6.0 02/01/24 16:45 Specific [place] (Auto) 1.015 02/01/24 16:45 Urine Protein (Auto) 0 mg/dL 02/01/24 16:45 Glucose (UA)(Auto) 0 mg/dL 02/01/24 16:45 Urine Blood (Auto) 10 Alexandro/uL 02/01/24 16:45 Urine Bilirubin (Auto) 0 mg/dL 02/01/24 16:45 Urine Urobilinogen (Auto) 0.2 mg/dL 02/01/24 16:45 Leukocyte Esterase (Auto) 0 Vlad/uL 02/01/24 16:45 Assessment & Plan Assessment & Plan (1) Prostate cancer: Code(s): C61 - Malignant neoplasm of prostate Category: Medical (2) Urgency incontinence: Code(s): N39.41 - Urge incontinence Category: Medical (3) Overactive bladder: Code(s): N32.81 - Overactive bladder Category: Medical Plan In office urinalysis results reviewed with the patient today; as noted above. PVR 76 mL. Continue Gemtesa as discussed and prescribed. Recent PSA results reviewed the patient today; as noted above. Patient currently denies any bothersome urinary issues or concerns. He reports be happy with current voiding parameters. Follow-up in 6 months with PVR; or sooner with any issues, concerns, and or questions. Orders: Orders AMB Urinalysis Automated 02/01/24 Z13.9 - Encounter for screening, unspecified AMB Post Void Residual by ultrasound 02/01/24 N39.41 - Urge incontinence Patient Instructions: The patient had an opportunity to ask questions regarding the treatment plan. All questions were answered. Physical exam, labs, and imaging were discussed and reviewed in detail. As well as risks, benefits, and discussion of treatment choices. No major barriers to understanding were identified. The patient expressed understanding and agreement with the above treatment plan. The patient was made aware they should contact our office by phone for worsening of their current condition, the appearance of new symptoms, or with any questions or concerns. Compliance is encouraged with any medications and follow up testing that is ordered. It is a privilege to be allowed the opportunity to participate in? your urological care.? Again, if you have any questions or concerns If you have any questions or concerns please do not hesitate to contact me. The office is [phone]. This note is constructed using voice recognition software. While every effort has been made to ensure accuracy food and beverage operations manager errors may have been included. Yours sincerely, REGIS Briceño Coding Level of Care Code Est Pt Level 3 (60407) Complex EM visit Add On G2211 Diagnoses Prostate cancer C61 Urgency incontinence N39.41 Overactive bladder N32.81 CPT Codes Post Residual Void - PVR CPT Code: 34942-Bhol Void Residual by ultrasound ([id number])
== END 2024-02-01 16:12 | disposition home or self-care (01) ==
PROVIDERS: PCP Internal Medicine; Visit Provider Nurse Practitioner Family
DX: C61 Malignant neoplasm of prostate (principal); N39.41 Urge incontinence; N32.81 Overactive bladder
CPT/HCPCS: 99213; G2211

== ENCOUNTER 2024-02-26 10:46 | Day surgery (SDC) | payer MEDICARE, MEDICAID, SELFPAY ==
[2024-02-22 14:05] VITALS: BMI 32.7
--- NOTE | 2024-02-23 12:49 | HO.ANESPROP2 ---
Documented by User: Nichelle Rivas NP 02/23/24 12:50 HPI - Anesthesia Eval Consult details Narrative: 78yo M for Upper Endoscopy and Colonoscopy [facility] Active Problems Active Problems: All Active Problems Prostate cancer (Acute) Sacroiliac joint dysfunction of left side (Acute) CKD (chronic kidney disease) stage 3, GFR 30-59 ml/min (Acute) Urgency incontinence (Acute) Confusion (Acute) Hospital discharge follow-up (Acute) Maxillary sinus mass (Acute) Chronic LLQ pain (Acute) Bilateral primary osteoarthritis of knee (Acute) Skin lesion (Acute) Gout (Acute) Left wrist pain (Acute) Left elbow pain (Acute) Osteoarthritis of left knee (Acute) Osteophyte, left knee (Acute) Left knee pain (Acute) Overactive bladder (Acute) Chronic pain syndrome (Acute) Sacroiliac dysfunction (Acute) Sacroiliitis (Acute) Spondylosis without myelopathy or radiculopathy, lumbar region (Acute) Screening for diabetes mellitus (Acute) Low back pain (Acute) Screening for colon cancer (Acute) Leg edema (Acute) Parkinsons disease (Acute) Mixed hyperlipidemia (Acute) Essential hypertension (Acute) GERD (gastroesophageal reflux disease) (Acute) Lumbar degenerative disc disease (Acute) Past Medical History Medical History (Reviewed 02/02/24 @ 14:48 by [facility] Prostate cancer CKD (chronic kidney disease) stage 3, GFR 30-59 ml/min Skin lesion Left knee pain Chronic pain syndrome Sacroiliac dysfunction Sacroiliitis Spondylosis without myelopathy or radiculopathy, lumbar region Adult general medical exam Screening for colon cancer Leg edema Urgency incontinence Parkinsons disease Mixed hyperlipidemia Essential hypertension GERD (gastroesophageal reflux disease) Lumbar degenerative disc disease Family History Family History Father No problems noted. Mother Diabetes Cancer Family history of problems with anesthesia: No Surgical History Surgical History History of cataract surgery History of colonoscopy History of basal cell carcinoma (BCC) excision History of prostatectomy History of Problems with Anesthesia: No Social History Social History Household Members Other:: granddaughter Housing: Apartment Are you a primary lead care manager to a significant other at home: No Do you presently have visiting nurse or other home services: No Alcohol intake: former Patient Tobacco Use Status: Never used Tobacco e-Cigarette/Vaping Use: Never Used Second Hand Smoke Exposure: No Have you been hit, kicked, punched, or otherwise hurt by someone within the past year? If so, by whom?: No Are you DNR?: No Advance Directives: No Advance Directives Information Provided: Yes Advance Directives Date on File: 08/18/23 Recently lost weight without trying: No Nutrition Risks: No Nutritional Risk service: No Current occupational status: disabled Current occupation: lt handed Cognitive needs: Yes Hearing needs: No Vision needs: No Meds Allergies Allergy/AdvReac Type Severity Reaction Status Date / Time pravastatin Allergy Intermediate dry mouth Verified 02/02/24 10:41 Home Medications ?Medication ?Instructions ?Recorded ?Confirmed ?Last Taken ?Type fluticasone propionate 50 2 spray intranasal DAILY 12/14/23 02/26/24 Unknown History mcg/actuation nasal spray,suspension Exam Height,Weight and Vital Signs: Height 5 ft 8 in Weight 97.522 kg Pertinent Lab Results Pertinent Lab Results: Laboratory Tests 01/12/24 01:10 WBC 6.4 Hgb 11.8 L Hct 34.4 L Plt Count 173 Sodium 140 Potassium 3.9 Chloride 110 H Carbon Dioxide 24 BUN 24 H Creatinine 1.11 Narrative Narrative: EKG 12/2023 Vent. Rate : 062 BPM Atrial Rate : 062 BPM P-R Int : 160 ms QRS Dur : 100 ms QT Int : 426 ms P-R-T Axes : 050 015 027 degrees QTc Int : 432 ms Normal sinus rhythm Minimal voltage criteria for LVH, may be normal variant ( R in aVL ) Borderline ECG When compared with ECG of 21-SEP-2020 17:02, No significant change was found Assessment and Plan Assessment Anesthesia Assessment: Chart Reviewed Final Anesthetic Review Family History of Problems with Anesthesia: No History of Problems with Anesthesia: No Documented by User: Arley Faith MD 02/26/24 13:37 [facility] Past Medical History Medical History (Reviewed 02/02/24 @ 14:48 by CAM [facility] Prostate cancer CKD (chronic kidney disease) stage 3, GFR 30-59 ml/min Skin lesion Left knee pain Chronic pain syndrome Sacroiliac dysfunction Sacroiliitis Spondylosis without myelopathy or radiculopathy, lumbar region Adult general medical exam Screening for colon cancer Leg edema Urgency incontinence Parkinsons disease Mixed hyperlipidemia Essential hypertension GERD (gastroesophageal reflux disease) Lumbar degenerative disc disease Family History Family History Father No problems noted. Mother Diabetes Cancer Surgical History Surgical History History of cataract surgery History of colonoscopy History of basal cell carcinoma (BCC) excision History of prostatectomy Social History Social History Household Members Other:: granddaughter Housing: Apartment Are you a primary lead care manager to a significant other at home: No Do you presently have visiting nurse or other home services: No Alcohol intake: former Patient Tobacco Use Status: Never used Tobacco e-Cigarette/Vaping Use: Never Used Second Hand Smoke Exposure: No Have you been hit, kicked, punched, or otherwise hurt by someone within the past year? If so, by whom?: No Are you DNR?: No Advance Directives: No Advance Directives Information Provided: Yes Advance Directives Date on File: 08/18/23 Recently lost weight without trying: No Nutrition Risks: No Nutritional Risk service: No Current occupational status: disabled Current occupation: lt handed Cognitive needs: Yes Hearing needs: No Vision needs: No Meds Allergies Allergy/AdvReac Type Severity Reaction Status Date / Time pravastatin Allergy Intermediate dry mouth Verified 02/02/24 10:41 Home Medications ?Medication ?Instructions ?Recorded ?Confirmed ?Last Taken ?Type fluticasone propionate 50 2 spray intranasal DAILY 12/14/23 02/26/24 Unknown History mcg/actuation nasal spray,suspension Exam Airway Mallampati Class: III TM Dist: >3cm Neck ROM: Full Loose/Missing/Broken Teeth: Yes, Upper and Lower Assessment and Plan Assessment Anesthesia Assessment: Anesthesia Plan Discussed Final Anesthetic Review NPO: Yes ASA Class: III Final Preanesthetic Review: No Changes in Pt Med Stat, Meds/Allgs Chart Reviewed, Consent Obtained/Reviewed and Anes Risks/Benef Reviewed Patient Risk: Intermediate Procedure Risk: Low Anesthetic Plan Anesthetic Plan: TIVA Disposition: Standard PACU
[2024-02-26] MEDS: Lactated Ringers 1,000 ML 100 ML IVCONT (11:21)
[2024-02-26 11:29] VITALS: BP 162/84; PULSE 78; RESP 18; TEMP 36.8; O2SAT 95
--- NOTE | 2024-02-26 11:59 | MHC.SHP ---
Pre-Procedural Eval Section A - 24 Hr Update-Section A only Date of Service: 02/26/24 The patient is an INPATIENT: No The patient has been examined within 24 hours of the surgical procedure. The History & Physical has been completed within 30 days and I have reviewed it.: No Section B - Complete if H&P > 30 days Chief Complaint: Screening, GERD Relevant Family History (Specify if Yes): No Relevant Social History: None Present Medications: see Short Stay Collaborative assessment Medical History: Significant History (CKD (chronic kidney disease) stage 3, GFR 30-59 ml/min Skin lesion Left knee pain Chronic pain syndrome Sacroiliac dysfunction Sacroiliitis Spondylosis without myelopathy or radiculopathy, lumbar region Adult general medical exam Screening for colon cancer Leg edema Urgency incontinence Prostate can) History of Previous Operations: Relevant previous surgery/procedure and date(s) (History of cataract surgery History of colonoscopy History of basal cell carcinoma (BCC) excision History of prostatectomy) Allergies: Allergies Allergy/AdvReac Type Severity Reaction Status Date / Time pravastatin Allergy Intermediate dry mouth Verified 02/02/24 10:41 Review of Systems Sugical H&P ROS: Negative: Constitution, Cardiovascular, Respiratory and Gastrointestinal and Yes, Specify: Neurological (Parkinson's disease) Exam Surgical H&P Exam: Normal: Heart, Normal: Lungs, Normal: Extremities and Normal: Abdomen Plan Diagnosis/Plan: Unchanged I have reviewed the history and physical and performed a pertinent physical examination on my patient. No changes have occurred unless specified. Time Spent With Patient Time: Total time managing care of this patient today ____ minutes.
--- NOTE | 2024-02-26 12:56 | HO.OPN-COLON ---
Colonoscopy Operative Note Operative Note Date of Service: 02/26/24 Narrative: FLEXIBLE TRANSORAL UPPER GASTROINTESTINAL ENDOSCOPY WITH BIOPSIES AND COLONOSCOPY TILL CECUM WITH BIOPSIES AND SNARE POLYPECTOMY Pre-op diagnosis: Colon cancer screening, GERD Post-op diagnosis: Gastritis, Colon Polyps, Diverticulosis, hemorrhoids Specimens and Sources: : A. Gastric Antrum R/O H. Pylori ?B. Transverse Colon Polyps ?C. Sigmoid Polyp Endoscopist:? Robby Bentley MD Anesthesia:?MAC UPPER ENDOSCOPY Consent: Indications for the procedure and potential complications of bleeding, perforation, reaction to medications and missed diagnosis were discussed with the patient and informed consent was obtained. Instrument: Olympus GIF H 190 mid size upper endoscope Monitoring: Vital signs and clinical assessment, continuous EKG monitoring, Pulse oximetry, Carbon Dioxide monitoring and blood pressure monitoring were done throughout the procedure. Procedure: The patient was placed in the left lateral decubitis position and pre-procedure medications were administered and a bite block was placed. The endoscope was inserted into the mouth and advanced under direct vision to the third part of duodenum. A careful inspection was made as the upper endoscope was withdrawn including a retroflexed examination of the proximal stomach; Findings and interventions are described below. Findings: Larynx: Normal Esophagus: GE junction at 43 cms, small hiatal hernia 42 to 45 cms. No esophagitis or Garay's. Stomach: Moderate diffuse gastric erythema - biopsies were obtained from the antrum. Grade 2 flap valve on retroflexed examination of the cardia. Duodenum: Normal bulb and descending duodenum Intervention: Biopsies as noted above COLONOSCOPY PROCEDURE NOTE Instrument: Olympus PCF H 190 L variable stiffness pediatric colonoscope Monitoring: Vital signs and clinical assessment, intermittent blood pressure monitoring, continuous EKG monitoring, Pulse oximetry and Carbon Dioxide monitoring were done throughout the procedure. Please see anesthesia flowsheet. Colon withdrawl time was 17 minutes. Procedure: The patient was placed in the left lateral decubitis position and pre-procedure medications were administered. After a digital rectal examination of the ano-rectum, the video colonoscope was inserted into the rectum and advanced through the colon to the cecum. The colonoscope was slowly withdrawn in a retrograde panoramic fashion and the colon mucosa was carefully examined including a retroflexed view of the rectum. Findings and interventions are described below. Procedure Difficulty: Colon was long and tortuous and there was some loop formation. LLQ pressure was applied to intubate the cecum Findings: Terminal Ileum: Not evaluated Cecum: Cecum was partially visualized across the ileocecal valve. Ascending Colon: Normal Transverse Colon: A 7-8 mm sessile polyp - removed with a cold snare. A 3-4 mm sessile polyp - removed with a cold biopsy Descending Colon: Normal Sigmoid Colon: A 3-4 mm diminutive appearing polyp - removed with a cold biopsy. Moderate diverticulosis Rectum: Normal Ano-rectum: Moderate internal hemorrhoids Colon preparation: Good after copious irrigation. [place] Bowel Preparation Scale Right colon; 2 Transverse colon: 2 Left colon; 2 (0 = Unprepared colon segment with mucosa not seen due to solid stool that cannot be cleared. 1 = Portion of mucosa of the colon segment seen, but other areas of the colon segment not well seen due to staining, residual stool and/or opaque liquid. 2 = Minor amount of residual staining, small fragments of stool and/or opaque liquid, but mucosa of colon segment seen well. 3 = Entire mucosa of colon segment seen well with no residual staining, small fragments of stool or opaque liquid) Impression and Post Procedure Diagnosis: Endoscopy Findings: ESOPHAGUS: STOMACH: DUODENUM: Colonoscopy Findings: Three small polyps were removed Moderate diverticulosis seen in the sigmoid colon Moderate hemorrhoids on retroflexed exam. Plan: Pt has a FU appointment on 03/21/[address] Bentley Repeat Colonoscopy in 3-5 years if polyps are adenomatous and 10 year if polyps are hyperplastic. Above findings were reviewed with the patient and relevant handouts were given and the discharge area.
[2024-02-26 13:38] VITALS: BP 126/69; PULSE 62; RESP 18; TEMP 36.3; O2SAT 95
[2024-02-26 13:53] VITALS: BP 132/74; PULSE 62; RESP 18; TEMP 36.3; O2SAT 95
== END 2024-02-26 14:25 | disposition home or self-care (01) ==
PROVIDERS: PCP Internal Medicine; Visit Provider Internal Medicine Gastroenterology
PROC: (CPT 45385; principal; 2024-02-26 12:50)
DX: Z12.11 Encounter for screening for malignant neoplasm of colon (principal); D12.3 Benign neoplasm of transverse colon; K63.5 Polyp of colon; K57.30 Diverticulosis of large intestine without perforation or abscess without bleeding; K64.8 Other hemorrhoids; K21.9 Gastro-esophageal reflux disease without esophagitis; K29.50 Unspecified chronic gastritis without bleeding; K44.9 Diaphragmatic hernia without obstruction or gangrene; G20.A1 Parkinson's disease without dyskinesia, without mention of fluctuations; G89.4 Chronic pain syndrome; M47.816 Spondylosis without myelopathy or radiculopathy, lumbar region; I12.9 Hypertensive chronic kidney disease with stage 1 through stage 4 chronic kidney disease, or unspecified chronic kidney disease; N18.30 Chronic kidney disease, stage 3 unspecified; E78.2 Mixed hyperlipidemia; Z85.46 Personal history of malignant neoplasm of prostate; Z79.899 Other long term (current) drug therapy; Z88.8 Allergy status to other drugs, medicaments and biological substances; Z98.890 Other specified postprocedural states
CPT/HCPCS: 45385; 45380; 43239; 88305; 88313; 88342; J2003; J2704

== ENCOUNTER → 2024-02-26 10:46 | Outpatient (BNV) | payer MEDICARE, MEDICAID, SELFPAY | PROVIDERS: PCP Internal Medicine; Visit Provider Internal Medicine Gastroenterology | DX: Z12.11 Encounter for screening for malignant neoplasm of colon (principal); D12.3 Benign neoplasm of transverse colon; K63.5 Polyp of colon; K57.30 Diverticulosis of large intestine without perforation or abscess without bleeding; K64.8 Other hemorrhoids; K21.9 Gastro-esophageal reflux disease without esophagitis; K29.70 Gastritis, unspecified, without bleeding | CPT/HCPCS: 43239; 45380; 45385 ==

== ENCOUNTER 2024-03-01 10:06 | Outpatient (AMB) | payer MEDICARE, MEDICAID, SELFPAY ==
[2024-03-01 10:10] VITALS: BMI 34.5
--- NOTE | 2024-03-01 10:10 | A.OFFVIS_ITS ---
Vital Signs 03/01/24 10:10 Height 5 ft 8 in Weight 227 lb BMI 34.5 Intake Visit Reasons: OV-Lower back pain-F/U Intake Note: Onur is a 78 year old male who presents to the office today for lower back pain. Patient report that his pain has worsen. Pt was supposed to follow up after PT. He came in with a cane today for support due to back pain. Allergies pravastatin Allergy (Intermediate, Verified 03/01/24 10:11) dry mouth Medication List - Last Reconciled 03/01/24 by Patricia Sun MD acetaminophen 500 mg PO Q6H PRN [adult diapers pull-ups As directed] albuterol sulfate 90 mcg/actuation 2 puffs inhalation Q6H PRN allopurinol 200 mg (2 x 100 mg) PO DAILY amlodipine 5 mg PO DAILY 90 days atorvastatin 40 mg PO DAILY 90 days carbidopa-levodopa 25-100 mg 2 tabs PO BID 90 days cholecalciferol (vitamin D3) 25 mcg PO DAILY 90 days clonazepam 0.5 mg PO BEDTIME 30 days diclofenac sodium 1% (Voltaren Arthritis Pain) 2 grams topical QID PRN 30 days fenofibrate 54 mg PO DAILY 90 days fluticasone propionate 50 mcg/actuation 2 sprays intranasal DAILY furosemide 20 mg PO DAILY PRN 90 days guaifenesin 200 mg (5 mL) PO Q4H PRN lisinopril 40 mg PO DAILY 90 days meclizine 25 mg PO TID PRN 7 days omeprazole 20 mg PO DAILY 90 days pramipexole 0.5 mg PO TID 15 days sennosides-docusate sodium 8.6-50 mg (Senna Plus) 2 tab-caps (2 x 8.6-50 mg) PO BEDTIME 60 days underpads (Bed Underpads) Use 8 pads per day vibegron (Gemtesa) 75 mg PO DAILY 30 days walker walker with seat and wheels zolpidem 5 mg PO BEDTIME PRN 30 days HPI Comments Details: 78-year-old with history of hypertension, GERD, Parkinson's disease (managed by Dr. Jacob), chronic kidney disease stage 3 and urgency incontinence of urine, prostrate cancer. Referred from Orthopedics. Ortho follows him for left knee, injections. He has previously seen pain management for left SI joint injection 2022. He did have epidural injection in [place] which helped him. Follows Rheumatology for gout. Chronic of lower back pain. He says he had lumbar MRI 12 years ago and was told to have disc herniation. No surgery. Constant, left sided, goes to mid/upper back, but does not radiate down to leg. Denies numbness or foot drop. Uses cane. Here with daughter who helped with translation. No change since the last time. He says he does not want to try PT. [facility] Medical History Prostate cancer CKD (chronic kidney disease) stage 3, GFR 30-59 ml/min Skin lesion Left knee pain Chronic pain syndrome Sacroiliac dysfunction Sacroiliitis Spondylosis without myelopathy or radiculopathy, lumbar region Adult general medical exam Screening for colon cancer Leg edema Urgency incontinence Parkinsons disease Mixed hyperlipidemia Essential hypertension GERD (gastroesophageal reflux disease) Lumbar degenerative disc disease Surgical History History of cataract surgery History of colonoscopy History of basal cell carcinoma (BCC) excision History of prostatectomy Family History Father No problems noted. Mother Diabetes Cancer Social History Household Members Other:: granddaughter Housing: Apartment Are you a primary nonfarm animal caretaker to a significant other at home: No Do you presently have visiting nurse or other home services: No Alcohol intake: former Patient Tobacco Use Status: Never used Tobacco e-Cigarette/Vaping Use: Never Used Second Hand Smoke Exposure: No Advance Directives Date on File: 08/18/23 service: No Current occupational status: disabled Current occupation: lt handed Cognitive needs: Yes Hearing needs: No Vision needs: No Physical Exam Vital Signs: BMI result Body Mass Index 34.5 Constitutional: Patient appears to be in no acute distress, well nourished and well developed. Patient was appropriately conversant and oriented. MSK: Stands up stooped forward. Knees bent when standing. Tender on left lumbar paraspinals and facet. SI joints non tender today. Lumbar ROM was full. Neurological: No foot drop. Babinski was down going bilaterally. Clonus was negative. Quality Reporting (2019) Adult ([facility] 138/05/11/68) Smoking risk assessment performed?: Yes Patient Tobacco Use Status: Never used Tobacco Results Reviewed Results Reviewed: Ordering Physician: Nile Askew MD Date of Service: 07/31/21 Procedure(s): XR lumbar spine 4V min Accession Number(s): [id number] cc: Nile Askew MD~ EXAMINATION: XR LUMBAR SPINE CLINICAL INFORMATION: Reason for Exam M47.816 - Spondylosis without myelopathy or radiculopathy... COMPARISON: None TECHNIQUE: Frontal lateral and coned-down L5-S1 frontal lateral, right and left obliques. FINDINGS: Five nev-bgl-mygbdao lumbar vertebrae were identified maintaining normal height and alignments. Narrowing of intervertebral disc spaces suggest underlying degenerative disc disease. Paravertebral soft tissues are unremarkable. There are radiolucencies, most likely superimposed bowel gas.. No radiographic evidence of osteolytic or osteoblastic lesions. XR/XR lumbar spine 4V min IMPRESSION: Mild narrowing of disc height and developed anterior osteophytes especially at L2-L3 suggests underlying degenerative disc disease. Bone alignments are satisfactory. No fracture. I reviewed records from the following: PCP Pain management Orthopedics Rheumatology Assessment & Plan Assessment & Plan (1) Lumbar radiculopathy, chronic: Code(s): M54.16 - Radiculopathy, lumbar region Category: Medical (2) Sacroiliac joint dysfunction of left side: Code(s): M53.3 - Sacrococcygeal disorders, not elsewhere classified Category: Medical Plan Continued chronic lower back pain. Epidural injections worked better for patient, done in [place], compared to SI joint injection. Patient had undergone adequate conservative management without improvement of condition. It would be reasonable to obtain further imaging such as MRI. An MRI would help rule out any serious condition, guide treatment and assess prognosis for recovery. Sp ecifically ruling out L5-S1 disc herniation or spinal stenosis. Patient previously seen by pain management. Since I do not perform SI or epidural injections, it would be reasonable to refer patient back to pain management. Patient is agreeable. Assessment and plan discussed with patient, and patient was agreeable. All questions were answered thoroughly. Patricia Sun MD, EDUAR Board Certified, [place] [employer] and [employer] (ABPMR) Board Certified, [place] [employer] Electrodiagnostic [employer] (ABEM) Orders: Orders MR lumbar spine wo con Today M54.16 - Radiculopathy, lumbar region Referrals Pain Management Referral M53.3 - Sacrococcygeal disorders, not elsewhere classified, M54.16 - Radiculopathy, lumbar region Coding Level of Care Code Est Pt Level 4 (57516) Diagnoses Lumbar radiculopathy, chronic M54.16 Sacroiliac joint dysfunction of left side M53.3
== END 2024-03-01 10:41 | disposition home or self-care (01) ==
PROVIDERS: PCP Internal Medicine; Visit Provider Physical Medicine & Rehabilitation
DX: M54.16 Radiculopathy, lumbar region (principal); M53.3 Sacrococcygeal disorders, not elsewhere classified
CPT/HCPCS: 99214

== ENCOUNTER → 2024-03-01 10:06 | Outpatient (BNVA) | payer MEDICARE, MEDICAID, SELFPAY | PROVIDERS: PCP Internal Medicine; Visit Provider Physical Medicine & Rehabilitation | DX: M54.16 Radiculopathy, lumbar region (principal); M53.3 Sacrococcygeal disorders, not elsewhere classified | CPT/HCPCS: 99212 ==

== ENCOUNTER 2024-03-10 09:33 | Outpatient (REF) | payer MEDICARE, MEDICAID, SELFPAY | END 2024-03-10 09:34 | disposition home or self-care (01) | LOC: HO.MRI 09:33 | PROVIDERS: PCP Internal Medicine; Visit Provider Physical Medicine & Rehabilitation | DX: M54.16 Radiculopathy, lumbar region (principal) | CPT/HCPCS: 72148 ==

== ENCOUNTER 2024-03-15 14:01 | Outpatient (REF) | payer MEDICARE, MEDICAID, SELFPAY ==
[2024-03-15 17:22] LABS: Influenza A PCR NEGATIVE (Negative); Influenza B PCR NEGATIVE (Negative); Resp Syncy Virus RNA Qual PCR NEGATIVE (Negative); SARS COV2 PCR INHOUSE NEGATIVE (Negative)
== END 2024-03-15 14:02 | disposition home or self-care (01) ==
LOC: HO.LNP 14:01
PROVIDERS: PCP Internal Medicine; Visit Provider Nurse Practitioner Family
DX: J06.9 Acute upper respiratory infection, unspecified (principal)
CPT/HCPCS: 0241U; 87880; 99212

== ENCOUNTER 2024-03-15 14:01 | Outpatient (AMB) | payer MEDICARE, MEDICAID, SELFPAY ==
[2024-03-15 14:45] VITALS: BP 130/80; PULSE 74; TEMP 36.7; O2SAT 97
--- NOTE | 2024-03-15 14:45 | MHC.OFFWIV ---
Intake Vital Signs 03/15/24 14:45 Weight 224 lb BP 130/80 Blood Pressure Location Lt brachial Position Sitting Pulse 74 Pulse Source Pulse Oximeter Temp 98.0 F Temp Source Oral Pulse Oximetry (%) 97 Oxygen Delivery Method Room Air Intake Visit Reasons: EP Sore throat, Body ache, cough Intake Note: Patient here for sore throat,cough, headache and chills which started about 3 days ago. Patient Tobacco Use Status: Never used Tobacco Allergies pravastatin Allergy (Intermediate, Verified 03/15/24 14:45) dry mouth Do you need a note to return to daycare/school/sports/work: No HPI EP Sore throat, Body ache, cough HPI Details 78-year-old male patient presents to the walk-in clinic today with a 3 day history of upper respiratory symptoms including productive cough with yellow sputum, body aches, nasal congestion, headache. Has had recent exposure to family members with similar symptoms. Denies any fever or chills. He has an albuterol inhaler at home that he has used a few times with some minor relief. Denies any GI symptoms. [facility] Medical History Prostate cancer CKD (chronic kidney disease) stage 3, GFR 30-59 ml/min Skin lesion Left knee pain Chronic pain syndrome Sacroiliac dysfunction Sacroiliitis Spondylosis without myelopathy or radiculopathy, lumbar region Adult general medical exam Screening for colon cancer Leg edema Urgency incontinence Parkinsons disease Mixed hyperlipidemia Essential hypertension GERD (gastroesophageal reflux disease) Lumbar degenerative disc disease Surgical History History of cataract surgery History of colonoscopy History of basal cell carcinoma (BCC) excision History of prostatectomy Family History Father No problems noted. Mother Diabetes Cancer Social History Household Members Other:: granddaughter Housing: Apartment Are you a primary career agent to a significant other at home: No Do you presently have visiting nurse or other home services: No Alcohol intake: former Patient Tobacco Use Status: Never used Tobacco e-Cigarette/Vaping Use: Never Used Second Hand Smoke Exposure: No Advance Directives Date on File: 08/18/23 service: No Current occupational status: disabled Current occupation: lt handed Cognitive needs: Yes Hearing needs: No Vision needs: No Review of Systems Const All systems reviewed & are unremarkable except as noted in HPI and below Physical Exam Vital Signs: Last Vital Signs Temp 98.0 F 03/15/24 14:45 Pulse 74 03/15/24 14:45 BP 130/80 03/15/24 14:45 Pulse Ox 97 03/15/24 14:45 Oxygen Delivery Method Room Air 03/15/24 14:45 Const General: cooperative and no acute distress HEENT Head: Yes normal to inspection Ears: hearing grossly normal bilaterally, external ears normal and TM's normal bilaterally General nose exam: Normal external nose present and Nasal discharge present mucoid Face and sinus: Yes normal facial exam and Yes sinuses nontender Mouth: Normal oral and palatal mucosa present Throat: Yes posterior oropharynx normal Neck Neck: Yes no lymphadenopathy Resp Effort & Inspection: normal respiratory effort Auscultation: clear to auscultation bilaterally Cardio Rate: regular rate Rhythm: regular rhythm Skin General skin exam: no rashes or lesions noted Neuro General: gait normal Extrem General: Yes capillary refill normal and Yes no clubbing, cyanosis or edema Psych Appearance: grossly normal Mental Status: mental status grossly normal Speech and movement: Normal speech and movement present Assessment & Plan Assessment & Plan (1) Upper respiratory infection: Code(s): J06.9 - Acute upper respiratory infection, unspecified Qualifiers: URI type: unspecified viral URI Qualified Code(s): J06.9 - Acute upper respiratory infection, unspecified Plan: Symptoms consistent with viral upper respiratory illness. COVID/flu/RSV swab obtained and patient aware he will be notified of results once these are available. He has persistent/productive cough, and has done well in previous years with prednisone. No history of diabetes. We will start on 3 day course of prednisone. Reviewed indications, use, possible side effects of this medication. Reviewed supportive measures he can do at home for this including rest, increase hydration, [id number] Tylenol as needed. He also has an albuterol pump he can use p.r.n.. If he does not improve with time and above measures, or if symptoms worsen/new symptoms develop, he can return to the clinic for further evaluation. He and family present at visit verbalized understanding and agreed to plan. Orders: Orders SARS-CoV2/FLU/RSV Today J06.9 - Acute upper respiratory infection, unspecified Medications: New prednisone Take 1 tablet by mouth twice a day for 3 days. 20 mg PO BID 3 days 6 tabs 0RF J06.9 - Acute upper respiratory infection, unspecified, R05.8 - Other specified cough Coding Level of Care Code Est Pt Level 4 (12573) Diagnoses Viral upper respiratory tract infection J06.9 URI type: unspecified viral URI
== END 2024-03-15 15:00 | disposition home or self-care (01) ==
PROVIDERS: PCP Internal Medicine; Visit Provider Nurse Practitioner Family
DX: J06.9 Acute upper respiratory infection, unspecified (principal); Z13.9 Encounter for screening, unspecified

== ENCOUNTER 2024-03-19 08:42 | Outpatient (AMB) | payer MEDICARE, MEDICAID, SELFPAY ==
--- NOTE | 2024-03-19 09:11 | A.OFFPC_ITS ---
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: No Accompanied by: son Allergies pravastatin Allergy (Intermediate, Verified 03/19/24 09:45) dry mouth Medication List - Last Reconciled 03/19/24 by Susy Harrington MD acetaminophen 500 mg PO Q6H PRN [adult diapers pull-ups As directed] albuterol sulfate 90 mcg/actuation 2 puffs inhalation Q6H PRN allopurinol 200 mg (2 x 100 mg) PO DAILY amlodipine 5 mg PO DAILY 90 days atorvastatin 40 mg PO DAILY 90 days carbidopa-levodopa 25-100 mg 2 tabs PO BID 90 days cholecalciferol (vitamin D3) 25 mcg PO DAILY 90 days clonazepam 0.5 mg PO BEDTIME 30 days diclofenac sodium 1% (Voltaren Arthritis Pain) 2 grams topical QID PRN 30 days fenofibrate 54 mg PO DAILY 90 days fluticasone propionate 50 mcg/actuation 2 sprays intranasal DAILY furosemide 20 mg PO DAILY PRN 90 days guaifenesin 200 mg (5 mL) PO Q4H PRN lisinopril 40 mg PO DAILY 90 days meclizine 25 mg PO TID PRN 7 days omeprazole 20 mg PO DAILY 90 days pramipexole 0.5 mg PO TID 15 days prednisone 20 mg PO BID 3 days sennosides-docusate sodium 8.6-50 mg (Senna Plus) 2 tab-caps (2 x 8.6-50 mg) PO BEDTIME 60 days underpads (Bed Underpads) Use 8 pads per day vibegron (Gemtesa) 75 mg PO DAILY 30 days walker walker with seat and wheels zolpidem 5 mg PO BEDTIME PRN 30 days Tobacco use date assessed: 05/22/23 Fall risk assessment: No Falls in past year Last assessed Fall Risk: 03/19/24 Dental Screening Dental Screen Date: 03/19/24 Did you have a dental visit in the last 12 months?: No Did you have a dental problem in the last 6 months where you did not have access to dental care?: No Was dental information given to patient?: Patient has dentist HPI HPI Comments History of Present Illness Details The patient is a 78-year-old male presenting with chronic disease management focusing on Parkinson's disease and essential hypertension. Parkinson's disease was diagnosed years ago. The patient experiences persistent tremors primarily in the hands. He is currently using assistive devices for mobility, like a cane. Essential hypertension management has been adjusted due to adverse effects of previous medications causing dry mouth; new medications are being considered. Gout management includes Allopurinol. Urinary incontinence treatment by a urologist with [facility] was initiated. Has history of prostate cancer and sacroiliitis. Insomnia is currently managed with Zolpidem, considered for an increased dose from 5 mg to 10 mg. Constipation complaints are managed but details of treatment were not disclosed in this encounter. Diagnostic investigation via MRI was recently completed, with results pending. Recent colonoscopy revealed a hyperplastic colon polyp, requiring follow-up. There is also a planned assessment of hemoglobin levels in [facility]. He also has chronic kidney disease that has been stable. Accompanied by son today. [facility] Medical History Prostate cancer CKD (chronic kidney disease) stage 3, GFR 30-59 ml/min Skin lesion Left knee pain Chronic pain syndrome Sacroiliac dysfunction Sacroiliitis Spondylosis without myelopathy or radiculopathy, lumbar region Adult general medical exam Screening for colon cancer Leg edema Urgency incontinence Parkinsons disease Mixed hyperlipidemia Essential hypertension GERD (gastroesophageal reflux disease) Lumbar degenerative disc disease Surgical History History of esophagogastroduodenoscopy (EGD) History of cataract surgery History of colonoscopy History of basal cell carcinoma (BCC) excision History of prostatectomy Family History Father No problems noted. Mother Diabetes Cancer Social History Household Members Other:: granddaughter Housing: Apartment Are you a primary animal daycare provider to a significant other at home: No Do you presently have visiting nurse or other home services: No Alcohol intake: former Patient Tobacco Use Status: Never used Tobacco e-Cigarette/Vaping Use: Never Used Second Hand Smoke Exposure: No Advance Directives Date on File: 08/18/23 service: No Current occupational status: disabled Current occupation: lt handed Cognitive needs: Yes Hearing needs: No Vision needs: No Questionnaire Thrive Questionnaire Date Thrive assessed: 05/22/23 DULCE-7 AMB Questionnaire DULCE-7 Date DULCE - 7 assessed: 05/22/23 Source: Developed by Drs. Iggy Kelly, Ivett Easley, Chinmay Gutierrez and colleagues, with an educational darryn from [employer]. Review of Systems Const Details: - Neurological: Reports tremors mainly in the hands. - Respiratory: Denies recent flu-like symptoms. - Gastrointestinal: Reports constipation. Physical exam (Primary Care) Vital Signs: Last Vital Signs BP 120/72 03/19/24 09:12 BMI result Body Mass Index 36.0 BMI Assessment/Plan discussion: High BMI High, discussed plan: lifestyle, weight reduction, dietary and physical activity Tobacco/Smoking Status: Tobacco use Status Tobacco use date assessed 05/22/23 03/19/24 09:18 Patient Tobacco Use Status Never used Tobacco 03/19/24 09:18 e-Cigarette/Vaping Use Never Used 03/19/24 09:18 Thrive Assessment: Date of Thrive Assessment Date Thrive assessed 05/22/23 03/19/24 09:18 Const Other: General: No confusion Respiratory: Normal respiratory effort, clear to auscultation bilaterally Cardiovascular: No jugular venous distension, regular rate, regular rhythm, S1 normal heart sound present and S2 normal heart sound present Neurology: Patient oriented x3, no focal motor deficits and No confusion. Tremors present in hands. Extremities: Full ROM Office Procedures Flu Questionnaire Does the patient have a severe egg allergy?: No Does the patient have severe life threatening allergies?: No Does the patient have a fever or illness today?: No Has the patient ever had Guillain-Crisfield Syndrome?: No Has the patient ever had any past reaction to a flu shot?: No Immunizations Fluarix Triv [id number] (PF) 45 mcg (15 mcg x 3)/0.5 mL IM syringe Performing Provider: Susy Harrington MD [facility] Administered by: KEEGAN Kyle on 03/19/24 10:02 Dose Route Admin Location Dispensed Lot Number Expiration Date [facility] [employer] 0.5 mL IM Left Deltoid 0.5 mL [id number] 09/16/24 [id number] [employer] VIS Given Date VIS Provided VIS Publication Date 03/19/24 Single Vaccine 20 Eligibility Eligibility Date Funding Source Not [facility] Eligible 03/19/24 Private Coding Level of Care Code Est Pt Level 4 (52698) Complex EM visit Add On G2211 Diagnoses Prostate cancer C61 Stage 3a chronic kidney disease N18.31 Chronic kidney disease stage 3 subtype: stage 3a (GFR 45-59) Idiopathic chronic gout of multiple sites without tophus M1A.09X0 Gout site: multiple sites Gout etiology: idiopathic Chronicity: chronic Presence of tophus: without tophus Sacroiliitis M46.1 Parkinson's disease with dyskinesia and fluctuating manifestations G20.B2 Dyskinesia presence: with dyskinesia Fluctuating manifestations: with fluctuating manifestations Essential hypertension I10 Time Spent (min) 23 Assessment & Plan Assessment & Plan (1) Prostate cancer: Code(s): C61 - Malignant neoplasm of prostate Category: Medical (2) CKD (chronic kidney disease) stage 3, GFR 30-59 ml/min: Code(s): N18.30 - Chronic kidney disease, stage 3 unspecified Category: Medical Qualifiers: Chronic kidney disease stage 3 subtype: stage 3a (GFR 45-59) Qualified Code(s): N18.31 - Chronic kidney disease, stage 3a (3) Gout: Comment: abrupt onset of multiple painful and swollen joints including his elbows and wrists. multiple attacks over 1-2 months Initial uric acid level 8.2 07/10 Allopurinol 200 mg 07/10 colchicine DC 12/2022 Code(s): M10.9 - Gout, unspecified Category: Medical Qualifiers: Gout site: multiple sites Gout etiology: idiopathic Chronicity: chronic Presence of tophus: without tophus Qualified Code(s): M1A.09X0 - Idiopathic chronic gout, multiple sites, without tophus (tophi) (4) Sacroiliitis: Code(s): M46.1 - Sacroiliitis, not elsewhere classified Category: Medical (5) Parkinsons disease: Code(s): G20 - Parkinson's disease Category: Medical Qualifiers: Dyskinesia presence: with dyskinesia Fluctuating manifestations: with fluctuating manifestations Qualified Code(s): G20.B2 - Parkinson's disease with dyskinesia, with fluctuations (6) Essential hypertension: Code(s): I10 - Essential (primary) hypertension Category: Medical Plan - Adjust medication regimen to better manage essential hypertension and Parkinson's disease symptoms. - Reinforce Allopurinol use for gout. - Increase Zolpidem dosage to 10 mg to improve insomnia symptoms. - Continue current urinary incontinence management. - Schedule follow-up hemoglobin evaluation in four months. - Recommend follow-up on hyperplastic colon polyp. Patient was informed and verbally consented to the use of an ambient scribe for clinic note documentation during this visit. During the visit, I reviewed the current management strategies with the patient, discussing medication adjustments to address Parkinson's and hypertension. Alternatives were considered due to the patient's report of dry mouth from Atenolol. I discussed increasing Zolpidem for insomnia, emphasizing the risks of higher doses, and consent was obtained. We also reviewed the need to continue Allopurinol for gout and the current approach to managing urinary incontinence. The imaging results, once received, will guide further management. Discussion about flu prevention concluded with the decision to administer the influenza vaccine, with the patient consenting to vaccination. Orders: Orders Lipid Panel 4 Months E78.5 - Hyperlipidemia, unspecified Comprehensive [place]. Panel Fast 4 Months I10 - Essential (primary) hypertension Influenza [id number] Immunization 03/19/24 Z23 - Encounter for immunization Medications: New verapamil ER 120 mg PO DAILY 90 caps 0RF 90 days I10 - Essential (primary) hypertension Refilled walker walker with seat and wheels 1 ea 0RF M46.1 - Sacroiliitis, not elsewhere classified underpads (Bed Underpads) Use 8 pads per day 240 ea 11RF N39.41 - Urge incontinence Discontinued amlodipine Discontinued Reason: Patient Completed Course 5 mg PO DAILY 90 days 90 tabs 1RF zolpidem Discontinued Reason: Patient Completed Course 5 mg PO BEDTIME 30 days PRN 30 tabs 0RF insomnia Patient Instructions: - Continue Allopurinol as prescribed for gout management. - Follow medication adjustments for hypertension as discussed. - Note increase in Zolpidem dosage and monitor sleep quality. - Adhere to urinary incontinence treatment guidelines. - Return for hemoglobin testing in four months as scheduled. - Receive a flu shot during today's visit for prevention.
[2024-03-19 09:12] VITALS: BP 120/72; BMI 36.0
== END 2024-03-19 10:03 | disposition home or self-care (01) ==
PROVIDERS: PCP Internal Medicine; Visit Provider Internal Medicine
DX: I12.9 Hypertensive chronic kidney disease with stage 1 through stage 4 chronic kidney disease, or unspecified chronic kidney disease (principal); N18.31 Chronic kidney disease, stage 3a; M46.1 Sacroiliitis, not elsewhere classified; G20.B2 Parkinson's disease with dyskinesia, with fluctuations; C61 Malignant neoplasm of prostate; M1A.09X0 Idiopathic chronic gout, multiple sites, without tophus (tophi)

== ENCOUNTER → 2024-03-19 08:42 | Outpatient (BNVA) | payer MEDICARE, MEDICAID, SELFPAY | PROVIDERS: PCP Internal Medicine; Visit Provider Internal Medicine | DX: Z23 Encounter for immunization (principal); C61 Malignant neoplasm of prostate; N18.31 Chronic kidney disease, stage 3a; M1A.09X0 Idiopathic chronic gout, multiple sites, without tophus (tophi); M46.1 Sacroiliitis, not elsewhere classified; G20.B2 Parkinson's disease with dyskinesia, with fluctuations; I10 Essential (primary) hypertension | CPT/HCPCS: 90471; 90656; 99212 ==

== ENCOUNTER 2024-03-21 11:50 | Outpatient (AMB) | payer MEDICARE, MEDICAID, SELFPAY ==
--- NOTE | 2024-03-21 12:04 | A.OFFVIS_ITS ---
Vital Signs 03/21/24 12:07 Height 5 ft 8 in Weight 238 lb BMI 36.2 BP 139/73 Blood Pressure Location Lt brachial Position Sitting Pulse 74 Intake Visit Reasons: s/p egd/colon Intake Note: Patient 3 month EGD/Colonoscopy post op follow up Chronic LLQ pain. Patient denies any GI issues for today. 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 Required: No Accompanied by: Family/Other Allergies pravastatin Allergy (Intermediate, Verified 11/13/24 12:51) dry mouth Medication List - Last Reconciled 03/21/24 by Robby Bentley MD acetaminophen 500 mg PO Q6H PRN [adult diapers pull-ups As directed] albuterol sulfate 90 mcg/actuation 2 puffs inhalation Q6H PRN allopurinol 200 mg (2 x 100 mg) PO DAILY atorvastatin 40 mg PO DAILY 90 days carbidopa-levodopa 25-100 mg 2 tabs PO BID 90 days cholecalciferol (vitamin D3) 25 mcg PO DAILY 90 days clonazepam 0.5 mg PO BEDTIME 30 days diclofenac sodium 1% (Voltaren Arthritis Pain) 2 grams topical QID PRN 30 days fenofibrate 54 mg PO DAILY 90 days fluticasone propionate 50 mcg/actuation 2 sprays intranasal DAILY furosemide 20 mg PO DAILY PRN 90 days guaifenesin 200 mg (5 mL) PO Q4H PRN lisinopril 40 mg PO DAILY 90 days meclizine 25 mg PO TID PRN 7 days omeprazole 20 mg PO DAILY 90 days pramipexole 0.5 mg PO TID 15 days prednisone 20 mg PO BID 3 days sennosides-docusate sodium 8.6-50 mg (Senna Plus) 2 tab-caps (2 x 8.6-50 mg) PO BEDTIME 60 days underpads (Bed Underpads) Use 8 pads per day verapamil ER 120 mg PO DAILY 90 days vibegron (Gemtesa) 75 mg PO DAILY 30 days walker walker with seat and wheels HPI HPI s/p egd/colon: Details: GI CLINIC VISIT FOR THIS 78 YEAR OLD NIUEAN-SPEAKING MALE WITH HYPERTENSION, HYPERLIPIDEMIA, GERD AND PARKINSON'S DISEASE REFERRED TO GI FOR COLON CANCER SCREENING PATIENT IS STATUS POST RADICAL PROSTATECTOMY FOR PROSTATE CANCER IN 2010 LABS IN [facility] : 07/2021 - Reviewed IMAGING STUDIES: No recent GI imaging studies ENDOSCOPIC STUDIES: 02/26/24 EGD AND COLON SHOWED: Endoscopy Findings: ESOPHAGUS: Small hiatal hernia STOMACH: Moderate diffuse gastric erythema DUODENUM: Normal Colonoscopy Findings: Three small polyps were removed Moderate diverticulosis seen in the sigmoid colon Moderate hemorrhoids on retroflexed exam. Plan: Pt advised to discontinue screening colonoscopies in the future due to advanced age and comorbidities. BIOPSIES SHOWED: A. Stomach, antrum, biopsy: Antral-type mucosa with mild chronic inactive inflammation; no Helicobacter organisms seen. B. Colon, transverse, polypectomies: - Tubular adenoma; negative for high-grade dysplasia or carcinoma. - Colonic mucosa with mild surface hyperplastic changes. C. Colon, sigmoid, polypectomy: Hyperplastic mucosal polyp Letter sent with biopsy results. TODAY'S VISIT: Pt is accompanied by his son and dil dil interpreted for the patient. Pt resides at the [facility] Complains of pain in elbow and back Pt complains of intermittent LLQ pain for the past 8 months. States he is having regular BMs and denies constipation PAST VISITS: Complains of chronic constipation and has a BM every 3 days. Pt reports a good appetite. Patient takes Prilosec every morning for GERD denies symptoms of dysphagia, nausea, vomiting, change in appetite or weight. Denies recent change in bowel habits, constipation, diarrhea, black stools or rectal bleeding. Patient denies major cardiac or pulmonary problems, loud snoring or sleep apnea Denies problems with anesthesia in the past. Denies being on chronic anticoagulation. Patient denies known family history of colon polyps, colon cancer or other GI malignancies. Pt denies tobacco and past ETOH use. 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 Normal per patient. PAST GI HISTORY BY REVIEW OF MEDICAL RECORDS: 12/2021 PATIENT WAS SEEN BY DR. WONG: This is a 76-year-old male with hypertension, mixed hyperlipidemia, GERD and Parkinson's disease that complains of low back pain that has been present for years. This is it to lumbar degenerative disc disease and is follow by pain management. Blood pressure stable. Lipid panel was order. GERD stable with PPIs as needed. Parkinson's disease has not significantly changed with carbidopa-levodopa follow by Neurology. Still has occasional resting tremor in hands. Accompanied by family member. Denies any chest pain or shortness of breath [facility] Medical History (Updated 11/13/24 @ 13:17 by Susy Harrington MD) CHF (congestive heart failure) Type 2 diabetes mellitus with hemoglobin A1c goal of less than 7.0% New onset type 2 diabetes mellitus CKD (chronic kidney disease) stage 2, GFR 60-89 ml/min On allopurinol therapy Prostate cancer CKD (chronic kidney disease) stage 3, GFR 30-59 ml/min Skin lesion Left knee pain Chronic pain syndrome Sacroiliac dysfunction Sacroiliitis Spondylosis without myelopathy or radiculopathy, lumbar region Adult general medical exam Screening for colon cancer Leg edema Urgency incontinence Parkinsons disease Mixed hyperlipidemia Essential hypertension GERD (gastroesophageal reflux disease) Lumbar degenerative disc disease Surgical History History of esophagogastroduodenoscopy (EGD) History of cataract surgery History of colonoscopy History of basal cell carcinoma (BCC) excision History of prostatectomy Family History Father No problems noted. Mother Diabetes Cancer Social History Household Members Other:: granddaughter Housing: Apartment Are you a primary respiratory care specialist to a significant other at home: No Do you presently have visiting nurse or other home services: No Alcohol intake: former Patient Tobacco Use Status: Never used Tobacco e-Cigarette/Vaping Use: Never Used Second Hand Smoke Exposure: No Advance Directives Date on File: 08/18/23 service: No Current occupational status: disabled Current occupation: lt handed Cognitive needs: Yes Hearing needs: No Vision needs: No Review of Systems Const Details: - Neurological: Reports tremors mainly in the hands. - Respiratory: Denies recent flu-like symptoms. - Gastrointestinal: Reports constipation. Physical Exam Vital Signs: Last Vital Signs Pulse 74 03/21/24 12:07 BP 139/73 03/21/24 12:07 BMI result Body Mass Index 36.2 Const General: healthy appearing and no acute distress Nutritional Appearance: obese Orientation/consciousness: patient oriented x3 Limitations: language barrier HEENT Head: Yes normal to inspection Ears: hearing grossly normal bilaterally Eyes Sclerae: sclerae normal Pupils: Equal, round and reactive pupils present Neck Neck: Yes normal visual inspection Chest Chest palpation & inspection: normal inspection of the chest Resp Effort & Inspection: normal respiratory effort Auscultation: clear to auscultation bilaterally Cardio Palpation: normal PMI Rate: regular rate Rhythm: regular rhythm Heart sounds: S1 normal heart sound present, S2 normal heart sound present and no murmurs GI Palpation (GI): Soft to palpation, nontender and No hepatosplenomegaly present Auscultation: normal bowel sounds Rectal Exam - Male: Yes deferred Skin General skin exam: no rashes or lesions noted Neuro General: patient oriented x3, gait normal and moves all extremities Cranial nerves: Yes Equal, round and reactive pupils present Psych Appearance: grossly normal Mental Status: mental status grossly normal Assessment & Plan Assessment & Plan (1) GERD (gastroesophageal reflux disease): Code(s): K21.9 - Gastro-esophageal reflux disease without esophagitis Category: Medical Qualifiers: Esophagitis presence: esophagitis presence not specified Qualified Code(s): K21.9 - Gastro-esophageal reflux disease without esophagitis (2) Screening for colon cancer: Code(s): Z12.11 - Encounter for screening for malignant neoplasm of colon Category: Medical (3) Chronic LLQ pain: Code(s): R10.32 - Left lower quadrant pain; G89.29 - Other chronic pain Category: Medical Plan 78 YEAR OLD NIUEAN-SPEAKING MALE WITH HYPERTENSION, HYPERLIPIDEMIA, GERD AND PARKINSON'S DISEASE REFERRED TO GI FOR COLON CANCER SCREENING PATIENT IS STATUS POST RADICAL PROSTATECTOMY FOR PROSTATE CANCER IN 2010 Patient denies major cardiac or pulmonary problems, loud snoring or sleep apnea Denies problems with anesthesia in the past. Denies being on chronic anticoagulation. Patient denies known family history of colon polyps, colon cancer or other GI malignancies. He reports having a colonoscopy in [place] > 8 yrs ago. Normal per patient. Patient was advised further evaluation with an upper endoscopy (FU of GERD) and a colonoscopy. Both procedures and potential complications including bleeding, perforation, reaction to anesthetic medications and aspiration pneumonia were reviewed with the patient and his granddaughter. Day would like to proceed with EGD and Colon. 08/24/23 Pt complians of intermittent LLQ pain for the past 5 months. Complains of chronic constipation and has a BM every 3 days. EGD and colon - scheduled 02/26/24 03/21/24 Pt complains of intermittent LLQ pain for the past 8 months. States he is having regular BMs and denies constipation EGD and colon results were reviewed Patient was placed on the colonoscopy recall list for repeat colonoscopy in 5 years or may elect to discontinue surveillance colonoscopies given advanced age.. FU in 8 months Coding Level of Care Code Est Pt Level 3 (98288) Diagnoses Gastroesophageal reflux disease, unspecified whether esophagitis present K21.9 Esophagitis presence: esophagitis presence not specified Screening for colon cancer Z12.11 Chronic LLQ pain R10.32; G89.29 Time Spent (min) 19
[2024-03-21 12:07] VITALS: BP 139/73; PULSE 74; BMI 36.2
== END 2024-03-21 12:40 | disposition home or self-care (01) ==
PROVIDERS: PCP Internal Medicine; Visit Provider Internal Medicine Gastroenterology
DX: K21.9 Gastro-esophageal reflux disease without esophagitis (principal); R10.32 Left lower quadrant pain; G89.29 Other chronic pain
CPT/HCPCS: 99213

== ENCOUNTER → 2024-03-21 11:50 | Outpatient (BNVA) | payer MEDICARE, MEDICAID, SELFPAY | PROVIDERS: PCP Internal Medicine; Visit Provider Internal Medicine Gastroenterology ==

== ENCOUNTER 2024-03-25 10:18 | Outpatient (AMB) | payer MEDICARE, MEDICAID, SELFPAY ==
[2024-03-25 10:26] VITALS: BP 147/72; PULSE 77; O2SAT 97; BMI 36.5
--- NOTE | 2024-03-25 10:26 | A.OFFVIS_ITS ---
Vital Signs 03/25/24 10:26 Height 5 ft 8 in Weight 240 lb BMI 36.5 BP 147/72 H Blood Pressure Location Lt brachial Position Sitting Pulse 77 Pulse Source Pulse Oximeter Pulse Oximetry (%) 97 Oxygen Delivery Method Room Air Intake Visit Reasons: Radiculopathy, lumbar region Allergies pravastatin Allergy (Intermediate, Verified 03/25/24 10:26) dry mouth Medication List - Last Reconciled 03/25/24 by Francine Carr, TERMITE EXTERMINATOR HELPER acetaminophen 500 mg PO Q6H PRN [adult diapers pull-ups As directed] albuterol sulfate 90 mcg/actuation 2 puffs inhalation Q6H PRN allopurinol 200 mg (2 x 100 mg) PO DAILY atorvastatin 40 mg PO DAILY 90 days carbidopa-levodopa 25-100 mg 2 tabs PO BID 90 days cholecalciferol (vitamin D3) 25 mcg PO DAILY 90 days clonazepam 0.5 mg PO BEDTIME 30 days diclofenac sodium 1% (Voltaren Arthritis Pain) 2 grams topical QID PRN 30 days fenofibrate 54 mg PO DAILY 90 days fluticasone propionate 50 mcg/actuation 2 sprays intranasal DAILY furosemide 20 mg PO DAILY PRN 90 days guaifenesin 200 mg (5 mL) PO Q4H PRN lisinopril 40 mg PO DAILY 90 days meclizine 25 mg PO TID PRN 7 days omeprazole 20 mg PO DAILY 90 days pramipexole 0.5 mg PO TID 15 days prednisone 20 mg PO BID 3 days sennosides-docusate sodium 8.6-50 mg (Senna Plus) 2 tab-caps (2 x 8.6-50 mg) PO BEDTIME 60 days underpads (Bed Underpads) Use 8 pads per day verapamil ER 120 mg PO DAILY 90 days vibegron (Gemtesa) 75 mg PO DAILY 30 days walker walker with seat and wheels HPI Comments Details: Mr.Colon Dan is in my office today to discuss further treatment. He received Left Therapeutic SIJ injection on 09/09/22 and he admitted have 3 months of pain relief. In the beginning of the conversation he appeared to be dissatisfied with the results of the injection. I offered him curonix peripheral nerve stimulation I also offered him repeat of the sacroiliac joint injection. The patient agreed to go for the injection, he does not want to try the stimulation. I will schedule the left sacroiliac joint injection with steroids under sedation. PRIOR Dr. Askew: Mr Cody Rivas is in the office today after left diagnostic sacroiliac joint injection which patient received 06/29/2021.? He reports that pain came back 3 weeks after the injection this is very with results. It let us hope that in case of steroid injection the patient will receive prolong sustained pain relief. He does not appear to have problems with diabetes and therefore small injection of the steroid should be minimally affecting him otherwise. He wants the procedure to be performed under sedation. I do not mind to perform sacroiliac joint injection for him with sedation. I will schedule him in the operating room for the injection. His options are sacroiliac joint innervation stimulation and sacroiliac joint fusion as well as sacroiliac joint steroid injection. Unlikely fusion is a good option for this gentleman he is 77 years old. However the PNS of the SI joints stimulation might be employed in the future if the sacroiliac joint injection will last shorter than 3 months. History of: ?lower back pain with radiation into bilateral lower extremities on the lateral sides to the level of the knees but not below the level of the knees. ?in [place] he was under care of some practitioners who performed injections nature which the patient does not know.? [place]. Rooney started him on oxycodone 5 mg 4 times a day.? He also tried icy Hot skin patch which did not help his pain.? He never had physical therapy he never had chiropractic manipulations he never had acupuncture to help his pain.? He never had TENS? unit.?? images of his lower back in [place] which was long time ago.? ? REMOTE HISTORY OF PROSTATECTOMY FOR PROSTATE CANCER IN [place].? Was long time ago, he would need to go to psychological evaluation a if he would choose to get SI joint innervation peripheral stimulation [facility] Medical History Prostate cancer CKD (chronic kidney disease) stage 3, GFR 30-59 ml/min Skin lesion Left knee pain Chronic pain syndrome Sacroiliac dysfunction Sacroiliitis Spondylosis without myelopathy or radiculopathy, lumbar region Adult general medical exam Screening for colon cancer Leg edema Urgency incontinence Parkinsons disease Mixed hyperlipidemia Essential hypertension GERD (gastroesophageal reflux disease) Lumbar degenerative disc disease Surgical History History of esophagogastroduodenoscopy (EGD) History of cataract surgery History of colonoscopy History of basal cell carcinoma (BCC) excision History of prostatectomy Family History Father No problems noted. Mother Diabetes Cancer Social History Household Members Other:: granddaughter Housing: Apartment Are you a primary eye care professional to a significant other at home: No Do you presently have visiting nurse or other home services: No Alcohol intake: former Patient Tobacco Use Status: Never used Tobacco e-Cigarette/Vaping Use: Never Used Second Hand Smoke Exposure: No Advance Directives Date on File: 08/18/23 service: No Current occupational status: disabled Current occupation: lt handed Cognitive needs: Yes Hearing needs: No Vision needs: No Review of Systems Const All systems reviewed & are unremarkable except as noted in HPI and below ENT Reports Normal hearing present Neuro Reports Normal hearing present, Denies Abnormal speech present, Denies confusion and Denies Sensory deficit (Neuro) Psych Denies confusion Physical Exam Vital Signs: Last Vital Signs Pulse 77 03/25/24 10:26 BP 147/72 H 03/25/24 10:26 Pulse Ox 97 03/25/24 10:26 Oxygen Delivery Method Room Air 03/25/24 10:26 BMI result Body Mass Index 36.5 Const General: No confusion Nutritional Appearance: obese morbidly obese Orientation/consciousness: No confusion Eyes General: appearance normal, both eyes and all related structures Pupils: Equal, round and reactive pupils present EOM: EOMs intact bilaterally Neck Neck: Yes full ROM Chest Chest palpation & inspection: normal inspection of the chest Resp Effort & Inspection: normal respiratory effort, able to speak in complete sentences, normal respiratory pattern, no audible wheezes and no cough Cardio Jugular venous distension: no JVD GI Inspection: Yes normal to inspection Back/Spine/Pelvis Other: Able to stand on bilateral tiptoes as well as on bilateral heels without difficulty. Demonstrates normal strength of bilateral lower extremities. Denies any numbness in bilateral lower extremities. Denies any weakness in bilateral lower extremities. Denies any pins and needles in bilateral lower extremities. Has is continence with the urine for which was prescribed imipramine. Imipramine helps therefore assumption will be made at this is urological issue. Denies urinary retention. Valsalva is negative for pain increase. Flexing forward grossly aggravates his pain. Flexing backwards does not aggravate his pain. Palpation of paraspinal spinal region lumbar spine is negative for pain. Palpation of the left and right sacroiliac joint is positive for pain. Bhargavi finger test is positive bilaterally. Bob test is positive bilaterally more on the left and less on the right. Bob test on the right causes significant discomfort on the left side. Stinchfield test is positive bilaterally more on the left and less on the right. SLR is positive bilaterally as well with Lassegue test is positive on the left. Neuro General: No confusion Cranial nerves: Yes Equal, round and reactive pupils present and Yes Normal hearing present Speech: No Abnormal speech present Gait exam (Neuro): Normal gait present Motor exam (neuro): 5/5 motor strength present throughout Sensory Exam: No Sensory deficit (Neuro) Extrem General: No pedal edema Quality Reporting (2019) Adult ([facility] 138/05/11/68) Smoking risk assessment performed?: Yes Patient Tobacco Use Status: Never used Tobacco Assessment & Plan Assessment & Plan (1) Osteoarthritis of left knee: Code(s): M17.12 - Unilateral primary osteoarthritis, left knee Category: Medical (2) Left knee pain: Code(s): M25.562 - Pain in left knee Category: Medical (3) Sacroiliitis: Code(s): M46.1 - Sacroiliitis, not elsewhere classified Category: Medical (4) Sacroiliac dysfunction: Code(s): M53.3 - Sacrococcygeal disorders, not elsewhere classified Category: Medical (5) Lumbar degenerative disc disease: Code(s): M51.36 - Other intervertebral disc degeneration, lumbar region Category: Medical Plan Patient is status post with repeated Left Therapeutic SIJ injection on 09/09/22 with no pain for 4-5 weeks. His pain has returned since in the left SIJ area. He also has mild right SIJ discomfort and no back pain today. Repeat sacroiliac joint injection versus peripheral nerve stimulation of sacroiliac joint injection chronic were offered to the patient. Patient decided to go with left SI joint therapeutic injection. I will schedule it under sedation. Curonix PNS was also explained but patient does not want to go for this procedure. Coding Level of Care Code Est Pt Level 3 (03687) Diagnoses Osteoarthritis of left knee M17.12 Left knee pain M25.562 Sacroiliitis M46.1 Sacroiliac dysfunction M53.3 Lumbar degenerative disc disease M51.36
== END 2024-03-25 10:38 | disposition home or self-care (01) ==
PROVIDERS: PCP Internal Medicine; Visit Provider Anesthesiology
DX: M17.12 Unilateral primary osteoarthritis, left knee (principal); M25.562 Pain in left knee; M46.1 Sacroiliitis, not elsewhere classified; M53.3 Sacrococcygeal disorders, not elsewhere classified; M51.369 Other intervertebral disc degeneration, lumbar region without mention of lumbar back pain or lower extremity pain
CPT/HCPCS: 99213

== ENCOUNTER 2024-04-04 10:18 | Outpatient (AMB) | payer MEDICARE, MEDICAID, SELFPAY ==
--- NOTE | 2024-04-04 10:20 | A.OFFVIS_ITS ---
Vital Signs 04/04/24 10:25 Height 5 ft 8 in Weight 244 lb 14.937 oz BMI 37.2 BP 124/80 Blood Pressure Location Lt brachial Position Sitting Pulse 76 Pulse Source Pulse Oximeter Pulse Oximetry (%) 95 Oxygen Delivery Method Room Air Intake Visit Reasons: Gout Intake Note: Patient presents for Gout. Leather Lacer Required: Yes Leather Lacer Language: Metal Sorter Services: Leather Lacer Offered & Declined Leather Lacer Name: Elysia Harris Information Interpreted: non-clinical & clinical Board Certified Orthodontist: Board Certified Orthodontist Present (Elysia Harris) Accompanied by: Daughter in law Allergies pravastatin Allergy (Intermediate, Verified 04/04/24 10:25) dry mouth Medication List - Last Reconciled 04/04/24 by Debbie Garcia MD acetaminophen 500 mg PO Q6H PRN [adult diapers pull-ups As directed] albuterol sulfate 90 mcg/actuation 2 puffs inhalation Q6H PRN allopurinol 200 mg (2 x 100 mg) PO DAILY atorvastatin 40 mg PO DAILY 90 days carbidopa-levodopa 25-100 mg 2 tabs PO BID 90 days cholecalciferol (vitamin D3) 25 mcg PO DAILY 90 days clonazepam 0.5 mg PO BEDTIME 30 days diclofenac sodium 1% (Voltaren Arthritis Pain) 2 grams topical QID PRN 30 days fenofibrate 54 mg PO DAILY 90 days fluticasone propionate 50 mcg/actuation 2 sprays intranasal DAILY guaifenesin 200 mg (5 mL) PO Q4H PRN lisinopril 40 mg PO DAILY 90 days meclizine 25 mg PO TID PRN 7 days omeprazole 20 mg PO DAILY 90 days pramipexole 0.5 mg PO TID 15 days sennosides-docusate sodium 8.6-50 mg (Senna Plus) 2 tab-caps (2 x 8.6-50 mg) PO BEDTIME 60 days underpads (Bed Underpads) Use 8 pads per day verapamil ER 120 mg PO DAILY 90 days vibegron (Gemtesa) 75 mg PO DAILY 30 days walker walker with seat and wheels HPI Comments Details: Patient is a 78-year-old male with hyperlipidemia, hypertension, CKD stage 3, Parkinson's disease and non crystal proven gout who is here today for follow-up Interval History: Patient last seen 05/10/[address] Mallory. At that time he was complaining of weakness in his knees stating that he felt that his knees were giving up. Exam was consistent with bilateral primary osteoarthritis of the knees and he was recommended to take Tylenol up to 2000 mg daily and to try [id number] Voltaren gel. Today, Rheumatologic History: Patient is seen to [facility] 06/2022 for the evaluation of abrupt onset of painful and swollen joints including his elbows and wrists. Found to have elevated uric acid and diagnosed with non crystal proven gout and started on allopurinol. Since then he has been stable with no return of swelling Initial history: This is a 77-year-old male with past medical history of Mauro cantrell's who is referred for evaluation of left elbow pain. Patient is here with his daughter she stated that 2-3 months ago patient went to [facility] due to left elbow, left wrist and left knee pain and swelling. He had an elbow and wrist x-ray done and they were told it might be arthritis and sent home. He was taking Tylenol. Patient does not have elbow or wrist pain now. His main complaint is low back pain. There is no history of kidney stones. There is no known family history of gout. Patient does not consume alcohol Initial uric acid level 8.2 07/10 Allopurinol 200 mg 07/10 colchicine DC 12/2022 Current Rheumatology Medication(s): Allopurinol 200 mg daily [facility] Medical History (Updated 04/04/24 @ 10:51 by Debbie Garcia MD) On allopurinol therapy Prostate cancer CKD (chronic kidney disease) stage 3, GFR 30-59 ml/min Skin lesion Left knee pain Chronic pain syndrome Sacroiliac dysfunction Sacroiliitis Spondylosis without myelopathy or radiculopathy, lumbar region Adult general medical exam Screening for colon cancer Leg edema Urgency incontinence Parkinsons disease Mixed hyperlipidemia Essential hypertension GERD (gastroesophageal reflux disease) Lumbar degenerative disc disease Surgical History History of esophagogastroduodenoscopy (EGD) History of cataract surgery History of colonoscopy History of basal cell carcinoma (BCC) excision History of prostatectomy Family History Father No problems noted. Mother Diabetes Cancer Social History Household Members Other:: granddaughter Housing: Apartment Are you a primary medicare sales executive to a significant other at home: No Do you presently have visiting nurse or other home services: No Alcohol intake: former Patient Tobacco Use Status: Never used Tobacco e-Cigarette/Vaping Use: Never Used Second Hand Smoke Exposure: No Advance Directives Date on File: 08/18/23 service: No Current occupational status: disabled Current occupation: lt handed Cognitive needs: Yes Hearing needs: No Vision needs: No Review of Systems Const Details: Review of Systems Constitutional: Denies fever, chills, weight loss ENT: Denies vision changes, eye pain or eye redness, dental caries, dry mouth GI: Denies nausea, vomiting, diarrhea, abdominal pain, change in BM Pulm: Denies SOB, GOVEA, hemoptysis, wheezing Cards: Denies chest pain, palpitations Skin: Denies Raynaud's, rash, nail changes, photosensitivity, SEED PACKER: Denies headaches, weakness, paresthesias, recurrent falls MSK: as per HPI All other systems reviewed and are unremarkable except noted above Physical Exam Vital Signs: Last Vital Signs Pulse 76 04/04/24 10:25 BP 124/80 04/04/24 10:25 Pulse Ox 95 04/04/24 10:25 Oxygen Delivery Method Room Air 04/04/24 10:25 BMI result Body Mass Index 37.2 Vital signs reviewed Physical Examination CONSTITUITIONAL Patient alert and cooperative. Well appearing and in no apparent painful distress Resting pill rolling tremor Tremor to the upper and lower extremities MSK Hands: ?Good steel pickler strength bilaterally. No deformities noted. ?No synovitis noted to the MCPs, PIPs or DIPs. ?No tenderness to palpation of these joints. 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 ?No tenderness to palpation or synovitis noted to the wrists. Elbows: Full range of motion without pain. No tenderness, weakness, swelling, increased warmth or erythema. Shoulders: Full range of motion without pain. No tenderness, weakness, swelling, increased warmth or erythema. Hips: Full range of motion without pain. Knees: ?Full range of motion. ?No tenderness, swelling, increased warmth or erythema.?No effusion or crepitations Ankles: Full range of motion. ?No tenderness, swelling, increased warmth or erythema.? Feet: ?Negative squeeze test. ?No tenderness to palpation or swelling of the MTPs. 3-4 pitting edema up to the knees bilaterally SKIN Skin intact without rashes. Quality Reporting (2019) Adult ([facility] 138/05/11/68) Smoking risk assessment performed?: Yes Patient Tobacco Use Status: Never used Tobacco Results Reviewed Results Reviewed: Laboratory Tests 12/14/23 01/12/24 10:26 01:10 Creatinine 1.11 Uric Acid 6.1 Assessment & Plan Assessment & Plan (1) Gout: Comment: abrupt onset of multiple painful and swollen joints including his elbows and wrists. multiple attacks over 1-2 months Initial uric acid level 8.2 07/10 Allopurinol 200 mg 07/10 colchicine DC 12/2022 Code(s): M10.9 - Gout, unspecified Category: Medical Qualifiers: Gout site: multiple sites Gout etiology: idiopathic Chronicity: chronic Presence of tophus: without tophus Qualified Code(s): M1A.09X0 - Idiopathic chronic gout, multiple sites, without tophus (tophi) Plan: #Non crystal proven gout Patient is a 78-year-old male with non crystal proven gout on a background of CKD. Has been stable on allopurinol 200 mg. No flares. We will continue medication and check labs today. Reasonable to see in 6 months to 1 year. 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 Plan I spent 20 minutes reviewing the record and labs, taking a history, examining the patient, discussing the treatment plan and documenting in the medical record Orders: Orders Comprehensive Met. Panel Today M1A.09X0 - Idiopathic chronic gout, multiple sites, without tophus (tophi) C Reactive Protein Today M1A.09X0 - Idiopathic chronic gout, multiple sites, without tophus (tophi) Uric Acid Today M1A.09X0 - Idiopathic chronic gout, multiple sites, without tophus (tophi) Complete Blood Count Auto Diff Today M1A.09X0 - Idiopathic chronic gout, multiple sites, without tophus (tophi) Erythrocyte Sedimentation Rate Today M1A.09X0 - Idiopathic chronic gout, multi ple sites, without tophus (tophi) Medications: Changed From allopurinol 200 mg (2 x 100 mg) PO DAILY 180 tabs 0RF M1A.09X0 - Idiopathic chronic gout, multiple sites, without tophus (tophi), Z79.899 - Other fpc (current) drug therapy To allopurinol 200 mg (2 x 100 mg) PO DAILY 90 days 180 tabs 4RF M1A.09X0 - Idiopathic chronic gout, multiple sites, without tophus (tophi), Z79.899 - Other fpc (current) drug therapy Coding Level of Care Code Est Pt Level 3 (93800) Complex EM visit Add On G2211 Diagnoses Idiopathic chronic gout of multiple sites without tophus M1A.09X0 Gout site: multiple sites Gout etiology: idiopathic Chronicity: chronic Presence of tophus: without tophus On allopurinol therapy Z79.899
[2024-04-04 10:25] VITALS: BP 124/80; PULSE 76; O2SAT 95; BMI 37.2
== END 2024-04-04 10:50 | disposition home or self-care (01) ==
PROVIDERS: PCP Internal Medicine; Visit Provider Student in an Organized Health Care Education/Training Program
DX: M1A.09X0 Idiopathic chronic gout, multiple sites, without tophus (tophi) (principal); Z79.899 Other long term (current) drug therapy
CPT/HCPCS: 99213; G2211

== ENCOUNTER → 2024-04-12 09:06 | Outpatient (BNVA) | payer MEDICARE, MEDICAID, SELFPAY | PROVIDERS: PCP Internal Medicine; Visit Provider Nurse Practitioner Family | DX: R60.0 Localized edema (principal) | CPT/HCPCS: 96127 ==

== ENCOUNTER 2024-04-18 13:45 | Outpatient (AMB) | payer MEDICARE, MEDICAID, SELFPAY ==
--- NOTE | 2024-04-18 13:50 | AM.OFFWIN_ITS ---
Intake Vital Signs 04/18/24 13:53 Weight 245 lb BP 130/82 Blood Pressure Location Lt brachial Position Sitting Pulse 80 Pulse Source Pulse Oximeter Temp 99.2 F Temp Source Oral Pulse Oximetry (%) 97 Oxygen Delivery Method Room Air Intake Visit Reasons: EP-diarrhea, b/l leg & foot swollen Intake Note: Patient here for diarrhea that started today and bilat feet swelling. Patient Tobacco Use Status: Never used Tobacco Allergies pravastatin Allergy (Intermediate, Verified 04/18/24 13:53) dry mouth Do you need a note to return to daycare/school/sports/work: No HPI HPI Comments History of Present Illness Details 78 y/o male patient who presents to the walk in clinic with c/o Diarrhea that started this morning. [facility] Medical History (Updated 04/04/24 @ 10:51 by Debbie Garcia MD) On allopurinol therapy Prostate cancer CKD (chronic kidney disease) stage 3, GFR 30-59 ml/min Skin lesion Left knee pain Chronic pain syndrome Sacroiliac dysfunction Sacroiliitis Spondylosis without myelopathy or radiculopathy, lumbar region Adult general medical exam Screening for colon cancer Leg edema Urgency incontinence Parkinsons disease Mixed hyperlipidemia Essential hypertension GERD (gastroesophageal reflux disease) Lumbar degenerative disc disease Surgical History History of esophagogastroduodenoscopy (EGD) History of cataract surgery History of colonoscopy History of basal cell carcinoma (BCC) excision History of prostatectomy Family History Father No problems noted. Mother Diabetes Cancer Social History Household Members Other:: granddaughter Housing: Apartment Are you a primary care management specialist to a significant other at home: No Do you presently have visiting nurse or other home services: No Alcohol intake: former Patient Tobacco Use Status: Never used Tobacco e-Cigarette/Vaping Use: Never Used Second Hand Smoke Exposure: No Advance Directives Date on File: 08/18/23 service: No Current occupational status: disabled Current occupation: lt handed Cognitive needs: Yes Hearing needs: No Vision needs: No Review of Systems Const All systems reviewed & are unremarkable except as noted in HPI and below Physical Exam Vital Signs: Last Vital Signs Temp 99.2 F 04/18/24 13:53 Pulse 80 04/18/24 13:53 BP 130/82 04/18/24 13:53 Pulse Ox 97 04/18/24 13:53 Oxygen Delivery Method Room Air 04/18/24 13:53 Const General: cooperative, comfortable and no acute distress Nutritional Appearance: obese Orientation/consciousness: patient oriented x3 Resp Effort & Inspection: normal respiratory effort Auscultation: clear to auscultation bilaterally Cardio Heart sounds: S1 normal heart sound present and S2 normal heart sound present GI Inspection: Yes Abdominal panniculus present and Yes obesity Palpation (GI): Soft to palpation, not firm, nontender, no guarding and not rigid Auscultation: normal bowel sounds Neuro General: patient oriented x3 Assessment & Plan Assessment & Plan (1) Gastritis: Code(s): K29.70 - Gastritis, unspecified, without bleeding Qualifiers: Gastritis type: other gastritis Chronicity: acute Gastritis bleeding: without bleeding Qualified Code(s): K29.00 - Acute gastritis without bleeding Plan: Hydrate well with fluids Avoid Oily and spicy foods BLAND diet. Coding Level of Care Code Est Pt Level 3 (53752) Diagnoses Other acute gastritis without hemorrhage K29.00 Gastritis type: other gastritis Chronicity: acute Gastritis bleeding: without bleeding Time Spent (min) 15
[2024-04-18 13:53] VITALS: BP 130/82; PULSE 80; TEMP 37.3; O2SAT 97
--- OUTSIDE RECORDS SUMMARY | 2024-04-18 17:36 | XMS_ITS | Clinical Summary ---
Author Organization Formerly [facility] Facility Address [address] [place] [address], [place] [id number] Care Team Providers Care Commercial Attache Name Role Phone Susy Sylvester MD Primary Care Provider [phone] Allergies No known active allergies Medications trihexyphenidyl (ARTANE) 2 MG tablet Take 2 mg by mouth Active sulindac (CLINORIL) 200 MG tablet Take 200 mg by mouth Active pravastatin (PRAVACHOL) 40 MG tablet TOME PEDRO PABLO TABLETA POR V?A ORAL TODOS LOS D? 03/17/2017 Active pramipexole (MIRAPEX) 0.5 MG tablet TK 1 T PO TID 04/24/2017 Active ibuprofen (ADVIL,MOTRIN) 800 MG tablet TAKE 1 TABLET WITH FOOD OR MILK NEEDED THREE TIMES A DAY ORALLY 30 DAYS 04/12/2017 Active hydroCHLOROthia zide 25 MG tablet TOME PEDRO PABLO TABLETA POR V?A ORAL TODOS LOS D? 03/17/2017 Active carbidopa-levod opa (SINEMET) 25-100 MG per tablet Take 1 tablet by mouth in the morning and 1 tablet at noon and 1 tablet in the evening. Active atorvastatin (LIPITOR) 40 MG tablet Take 40 mg by mouth 1 (one) time each day Active amoxicillin-cla vulanate (AUGMENTIN) 875-125 MG per tablet TOME PEDRO PABLO TABLETA POR V?A ORAL CADA DOCE HORAS POR 10 D? 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 hypertensio n 04/11/2022 Parkinson's disease 04/08/2022 Osteoarthritis of joint of left shoulder region 04/08/2022 Osteoarthritis 01/31/2017 Overview (04/08/2022): Minimal 2012, shoulders and R knee Gastroesophageal reflux disease 01/31/2017 Erectile dysfunction 01/31/2017 History of malignant basal cell neoplasm of skin 01/23/2017 Overview (04/08/2022): BCC 02/03 nose (nodular) Hyperlipidemia 12/02/2016 History of malignant neoplasm of prostate 2016 Overview (04/08/2022): adenocarcinoma 2010 Immunizations Name Administration Dates Next Due Influenza Split High Dose Preservative Free IM 0 12/02/2016 Tdap 04/20/2010 Social History Tobacco Use Types Packs/Day Years Used Date Smoking Tobacco: Never Assessed Sex and Gender Information Value Date Recorded Sex Assigned at Not on file Legal Sex Male 3:18 PM EST Gender Identity Not on file Sexual Orientation Not on file Plan of Treatment Health Maintenance Due Date Last Done Comments Pneumococcal Vaccine: 65+ Ye ars (1 of 2 - PCV) 06/01/1951 Influenza Vaccine (#1) 2023 12/02/2016 Hepatitis B Vaccine Aged Out No longe r eligible based on patient's age to complete this topic Insurance [address] [place] [address] [place] Care Teams Commercial Attache Relationship Specialty Start Date End Date Susy Sylvester MD [address] [place], [place] PCP - General Internal Medicine 03/31/22
--- OUTSIDE RECORDS SUMMARY | 2024-04-18 17:36 | XMS_ITS | Encounter Summary ---
Author Organization [facility] Address [address] [place] [address] Care Team Providers Care Stock Turner Name Role Phone Susy Sylvester Primary Care Provider [phone] Encounter Details Date Type Department Care Team (Late st Contact Info) Description 12/21/2023 Orders Only [facility] Nuclear Medicine [address] [place] [address] Jake Angulo MD PhD [address] [place] [address] Social History Tobacco Use Types Packs/Day Years Used Date Smoking Tobacco: Never Smokeless Tobacco: Never Alcohol Use Standard Drinks/Week Comments Never 0 (1 standard drink = 0.6 oz pur e alcohol) Sex and Gender Information Value Date Recorded Sex Assigned at Male 12/20/2023 12:01 PM EDT Legal Sex Male 8:24 AM EDT Gender Identity Not on file Sexual Orientation Not on file documented as of this encounter Plan of Treatment Upcoming Encounters Date Type Department Care Team (Late st Contact Info) Description 06/05/2024 1:00 PM EDT Office Visit [facility] [address] [place] [address] Cristhian Ruff DO [address] [place] [address] documented as of this encounter Visit Diagnoses Not on filedocumented in this encounter Care Teams Stock Turner Relationship Specialty Start Date End Date Susy Sylvester [address] [place] [address] dr Oscar Moore, BAR[place] [address] PCP - General Internal Medicine 06/14/23 documented as of this encounter
--- OUTSIDE RECORDS SUMMARY | 2024-04-18 17:37 | XMS_ITS | Data Portability ---
Author Organization [place] - [facility], Allergy Address [address] [place] [id number] Assessment Encounter Date Assessment Date Assessment LastModified by Organization Details LastModified Time 10/30/2023 10/30/2023 78 year old Armenian speaking male with a history of dementia and Parkinson's disease with incidental finding on head CT in July which showed right maxillary soft tissue opacification with possible polyp and hyperdense secretions by report. Disc not available today. He reports bilateral nasal congestion and facial fullness especially in the morning. Bulging of the right middle meatus on nasal endoscopy and left sphenoethmoid polyp. Prescribed Flonase and three week course of doxycycline 100 mg BID. He will follow up in a few weeks and we will obtain CT sinus at that time. Written info re sinus surgery given to family rogerio Not available 10/30/2023 13:01:41 12/08/2023 12/08/2023 Patient with mild dementia and Parkinson's disease seen in follow-up for incidental right maxillary opacification with polyp. Previous endoscopy showed bulging right medial wall and possible left sphenoid recess polyp. CT scan performed today shows no polyps and trace thickening of the maxillary sinuses with a small retention cyst in the right maxillary sinus. The OMCs are basically clear. Sphenoid recesses are clear. No need for any intervention. Suggest continuing Flonase and following up with his PCP rogerio Not available 12/08/2023 11:35:14 Plan of Treatment Reminders Order Date Submit Date Provider Last Modified By Organization Details Last Modified Time Details Appointments None record ed. Lab None record ed. Referral None record ed. Procedures None record ed. Surgeries None record ed. Imaging CT, maxill ofacia l, w/o contra st 2023 024 [email or web address] [facility], [address] [place] [address], [phone], 4 10:11:43 CT, sinuse s, w/o contra st 2023 024 [email or web address], [address] [place] [address], [phone], 4 11:35:27 Medication Orders doxycy maciel hyclat e 100 mg tablet 2023 [facility], [address] [place] [address], [id number], 4 10:36:41 flutic asone propio mynor 50 mcg/ac tuatio n nasal spray, suspen padmini 2023 024 [facility], [address] [place] [address], [id number], 4 14:57:14 Patient TargetsNo targets recorded. Patient InstructionsNo instructions recorded. Reason for Referral None Reported. Results Created Date Observation Date Name Description Value Unit Range Abnormal Flag Note LastModifiedBy Organization Detail LastModifiedTime 12/08/[address], sinus es, w/o contr ast No observ ation record ed. [facility] [address], [phone], 12/08/2023 11:35:24 Result Notes None recorded. Problems Name Problem SNOMED Code Status Onset Date Resolution Date Notes Provider Name and Address Organization Details Recorded Time Nasal congestion 27591779 Active 024 JAYSON SHIELDS MD [address] [place] [address], [phone], [facility] - [facility] 4 11:58:59 Chronic maxillary sinusitis 09310680 Active 024 JAYSON SHIELDS MD 100 [facility], [place], [address], [place] [facility] [place] 4 12:00:46 Chronic rhinitis 88569594 Active 024 JAYSON SHIELDS MD [facility], [place], [address], [place] [facility] [place] 4 12:01:02 Chronic sinusitis 77573218 Active 024 JAYSON SHIELDS MD [address] [facility], [place], [address], [place] [facility] [place] 4 12:01:02 Polyp of nasal cavity 591250728 Active 024 JAYSON SHIELDS MD 100 [facility], [place], [address], [place] [facility] [place] 4 13:04:18 Parkinson's disease 20909189 Active 024 JAYSON SHIELDS MD 100 [facility], [place], [address], [place] [facility] [place] 4 11:34:00 Impaired cognition 088015880 Active 024 JAYSON SHIELDS MD 100 [facility], [place], [address], [place] [facility] 4 11:34:12 Problem Notes None recorded. Procedures Surgical History Date Name Laterality Status Provider Name and Address Organization Details Recorded Time 4 JMSNasal/Sinus Endoscopy completed JAYSON ALEXANDER MD [address], [address], [place] - [facility] 10/30/2023 12:04:04 Cataract Surgery completed Deny Blanca [place] - [facility] 10/30/2023 11:20:20 excision of basal cell carcinoma completed Deny Blanca [place] - [facility] 10/30/2023 11:20:58 Imaging Results Imaging Date Name Status LastModified by Organiz ation Details LastModified Time 12/08/2023 CT, sinuses, w/o contrast completed rogerio [facility] [address], [place], [address], 12/08/2023 11:35:24 Procedure Notes None recorded. Medical Equipment None Reported. Allergies No known drug allergies Medications Name Sig Start Date Stop Date Status Note LastModified by Organization Details LastModified Time atorvastatin 40 mg tablet TAKE 1 TABLET BY MOUTH EVERY DAY active Not Available Not Available No t Available clonazepam 0.5 mg tablet TAKE 1 TABLET BY MOUTH EVERY DAY AT BEDTIME active Not Available Not Available N ot Available carbidopa ER 50 mg-levodopa 200 mg tablet,extend ed release TAKE 1 TABLET BY MOUTH THREE TIMES DAILY active Not Available Not Available No t Available amlodipine 5 mg tablet TAKE 1 TABLET BY MOUTH EVERY DAY active Not Available Not Available No t Available allopurinol 100 mg tablet TAKE 2 TABLETS BY MOUTH EVERY DAY active Not Available Not Available No t Available pramipexole 0.5 mg tablet TAKE 1 TABLET BY MOUTH THREE TIMES DAILY active Not Available Not Available No t Available meclizine 25 mg tablet TAKE 1 TABLET BY MOUTH THREE TIMES DAILY NEEDED FOR DIZZINESS FOR 7 DAYS active Not Available Not Available N ot Available cephalexin 500 mg capsule TAKE 1 CAPSULE BY MOUTH TWICE A DAY FOR 7 DAYS active Not Available Not Available No t Available omeprazole 20 mg capsule,delay ed release TAKE 1 CAPSULE BY MOUTH EVERY MORNING active Not Available Not Available No t Available bisacodyl 5 mg tablet,delaye d release TAKE 2 TABLETS BY MOUTH EVERY DAY AT NOON (12 pm) STARTING 5 DAYS BEFORE YOUR PROCEDURE active Not Available Not Available No t Available hydrochloroth iazide 25 mg tablet TAKE 1 TABLET BY MOUTH EVERY DAY active Not Available Not Available No t Available zolpidem 5 mg tablet TAKE 1 TABLET BY MOUTH EVERY DAY AT BEDTIME NEEDED FOR SLEEP active Not Available Not Available No t Available furosemide 20 mg tablet TAKE 1 TABLET BY MOUTH EVERY DAY active Not Available Not Available No t Available carbidopa 25 mg-levodopa 100 mg tablet TAKE 2 TABLETS BY MOUTH TWICE DAILY active Not Available Not Available No t Available lisinopril 40 mg tablet TAKE 1 TABLET BY MOUTH EVERY DAY active Not Available Not Available No t Available fluticasone propionate 50 mcg/actuation nasal spray,suspens ion INSTILL 2 SPRAYS IN EACH NOSTRIL ONCE DAILY active Not Available Not Available N ot Available doxycycline hyclate 100 mg tablet TAKE 1 TABLET BY MOUTH TWICE DAILY FOR 21 DAYS active Not Available Not Available No t Available Senna-S 8.6 mg-50 mg tablet TAKE 2 TABLETS BY MOUTH ONCE DAILY AT BEDTIME active Not Available Not Available No t Available Vitamin D3 25 mcg (1,000 unit) capsule TAKE 1 TABLET BY MOUTH ONCE DAILY active Not Available Not Available No t Available peg 3350-electrol ytes 236 gram-22.74 gram-6.74 gram-5.86 gram solution MIX WITH WATER DIRECTED ON PACKAGE THEN DRINK 240 ML (8 OUNCES) EVERY 10 MINUTES UNTIL FECAL EFFLUENT IS CLEAR, DO NOT EXCEED 4,000 ML (1 BOTTLE) active Not Available Not Available N ot Available diclofenac 1 % topical gel APPLY 2 GRAMS TOPICALLY TO AFFECTED AREA(S) FOUR TIMES DAILY NEEDED active Not Available Not Available No t Available fenofibrate 54 mg tablet TAKE 1 TABLET BY MOUTH EVERY DAY active Not Available Not Available No t Available Myrbetriq 25 mg tablet,extend ed release TAKE 1 TABLET BY MOUTH ONCE DAILY active Not Available Not Available No t Available Vitals Date Recorded Body height Body mass index (BMI) Body weight Provider Name and Address Organization Details Last Updated DateTime 10/30/2023 172.72 cm 32.8 kg/m2 16196.95 g Deny Blanca [place] - [facility] 10/30/2023 11:37:14 Social History None recorded. Functional Status None recorded. Mental Status None recorded. Family History Nothing Reported. Medical History No medical history recorded. Past Encounters Encounter ID Performer Location Encounter Start Date Encounter Closed Date Diagnosis/Indication Diagnosis SNOMED-CT Code Diagnosis ICD10 Code Diagnosis Note [id number] JAYSON BARRY MD [facility] [address] [address] 10/30/2023 11:00:35 10/30/2023 12:05:28 Nasal congestion 05619966 R09.81 Chronic ma xillary sinusitis 44783785 J32.0 Chronic rhinitis 9634270 6 J31.0 Polyp of nasal cavity 73 8043795 J33.0 [id number] JAYSON BARRY MD [facility] [address] [place] [address] 12/08/2023 10:32:17 12/08/2023 16:44:16 Chronic sinusitis 93691379 J32.9 Parkinson's disease 4904 9000 G20.A1 Impaired cognition 33379 6002 R41.89 Health Concerns Section Related Observation LastModified by Organization Detai ls LastModified Time None Recorded Concern Status LastModified by Organization Details LastModified Time None Recorded Advance Directives Directive None Recorded Payers Encounter Date Sequence Insurance Name Policy Number Policy Vargas Covered Member ID Vargas Member ID Guarantor Name 10/30/2023 2 [place] [facility] Onur Colon [id number] Onur Colon 10/30/2023 1 MEDICARE B-[place]: [facility] [employer] Onur Colon [id number] Onur Colon 12/08/2023 2 [place] Onur Colon [id number] Onur Colon 12/08/2023 1 [place] B-[place] [facility] Onur Colon [id number] Onur Colon Notes Date Note Type Note Provider Name and Address Organization Details Recorded Time 10/30/2023 text/html 78 year old Span phuc speaking male with a history of dementia and Parkinson's disease. He recently underwent head CT in July which showed right maxillary soft tissue opacification with possible polyp and hyperdense secretions by report. He reports bilateral nasal congestion and some facial fullness in the morning. He denies allergies. He reports past sinus surgery approximately five years ago which unfortunately did not improve his symptoms. His phwrqcdf-jw-wya and son help translate for him. JAYSON ALEXANDER MD [address] [place] [address], [phone], [facility] - [facility] 10/30/2023 13:04:39 12/08/2023 text/html Family notes kesha t patient feels improved following the antibiotics and nasal steroids. Previously noted to have incidental findings of polyps and hyperdense secretions.No other change in his history prior visit78 year old Armenian speaking male with a history of dementia and Parkinson's disease with incidental finding on head CT in July which showed right maxillary soft tissue opacification with possible polyp and hyperdense secretions by report. Disc not available today. He reports bilateral nasal congestion and facial fullness especially in the morning. Bulging of the right middle meatus on nasal endoscopy and left sphenoethmoid polyp. Prescribed Flonase and three week course of doxycycline 100 mg BID. He will follow up in a few weeks and we will obtain CT sinus at that time. Written info re sinus surgery given to family JAYSON ALEXANDER MD [address] [place] [address], [place], [address], [place] - [facility] 12/08/2023 11:35:55
--- OUTSIDE RECORDS SUMMARY | 2024-04-18 17:37 | XMS_ITS | Referral Summary ---
Author Organization [facility] Address [address] [place] [address] Care Team Providers Care Puttying And Calking Supervisor Name Role Phone Susy Sylvester Primary Care Provider [phone] Encounters Date Type Department Care Team Description 02/05/2024 9:45 AM EST - 02/05/2024 11:59 PM EST Hospital Encounter [facility] Nuclear Medicine [address] [place] [phone] Akua Maharaj MD Discharge Disposition: Home or Self Care () 02/05/2024 9:19 AM EST - 02/05/2024 9:44 AM EST Hospital Encounter [facility] [address] [place] [phone] Akua Maharaj MD Parkinsonism, unspecified Parkinsonism type (HCC) Discharge Disposition: Home or Self Care () from Last 3 Months Allergies No known active allergies Medications meclizine (ANTIVERT) 25 mg tablet SMARTSI Tablet(s) By Mouth 3 Times Daily PRN 10/11/2023 Active carbidopa-levod opa (SINEMET) 25-100 mg per tablet Take 1 tablet by mouth 3 times daily. Active lisinopriL (PRINIVIL,ZESTR IL) 40 mg tablet 40 mg once a day. 03/16/2023 Active zolpidem (AMBIEN) 5 mg tablet SMARTSI Tablet(s) By Mouth Every Night PRN 12/08/2023 Active Senna-S 8.6-50 mg SMARTSI Tablet(s) By Mouth Every Night 11/21/2023 Active carbidopa-levod opa ER/CR (SINEMET ER/CR) 50-200 mg tablet 1 tablet. Per pt take 1 tablet 3 times daily 11/21/2023 Active amLODIPine (NORVASC) 5 mg tablet SMARTSI Tablet(s) By Mouth Daily 11/22/2023 Active fenofibrate (LOFIBRA) 54 mg tablet once a day. 12/18/2023 Active clonazePAM (KlonoPIN) 0.5 mg tablet nightly. 11/28/2023 Active atorvastatin (LIPITOR) 40 mg tablet Take 40 mg by mouth. Active Vitamin D3 25 mcg (1,000 unit) capsule SMARTSI Tablet(s) By Mouth Daily 11/21/2023 Active furosemide (LASIX) 20 mg tablet SMARTSI Tablet(s) By Mouth Daily 09/18/2023 Active pramipexole (MIRAPEX) 0.5 mg tablet once a day. 12/18/2023 Active Gemtesa 75 mg tablet SMARTSI Tablet(s) By Mouth Daily 12/14/2023 Active omeprazole (PriLOSEC) 20 mg capsule SMARTSI Capsule(s) By Mouth Every Morning 11/28/2023 Active allopurinoL (ZYLOPRIM) 100 mg tablet 100 mg. Per pt take 100 mg 2 tablets daily 08/23/2023 Active hydroCHLOROthia zide (HYDRODIURIL) 25 mg tablet SMARTSI Tablet(s) By Mouth Daily 09/25/2023 Active Social History Tobacco Use Types Packs/Day Years Used Date Smoking Tobacco: Never Smokeless Tobacco: Never Tobacco Cessation:Counseling Given: Not Answered Alcohol Use Standard Drinks/Week Comments Never 0 (1 standard drink = 0.6 oz pur e alcohol) Sex and Gender Information Value Date Recorded Sex Assigned at Male 12/20/2023 12:01 PM EDT Legal Sex Male 8:24 AM EDT Gender Identity Not on file Sexual Orientation Not on file Last Filed Vital Signs Vital Sign Reading Time Taken Comments Blood Pressure 143/69 12/20/2023 1:31 PM EDT Pulse 72 12/20/2023 1:31 PM EDT Temperature 36.7 ??C (98.1 ??F) 12/20/2023 1:19 PM ED T Respiratory Rate 16 12/20/2023 1:19 PM EDT Oxygen Saturation - - Inhaled Oxygen Concentration - - Weight 98.9 kg (218 lb) 12/20/2023 1:19 PM EDT Height 172.7 cm (5' 8 ) 12/20/2023 1:19 PM EDT Body Mass Index 33.15 12/20/2023 1:19 PM EDT Plan of Treatment Upcoming Encounters Date Type Department Care Team (Late st Contact Info) Description 06/05/2024 1:00 PM EDT Office Visit [facility] [address] [place] [address] Cristhian Ruff DO [address] [place] [address] Procedures * Due to [facility] law, this organization might not be sharing negative HIV tests. Procedure Name Priority Date/Time Associated Diagnosis Comments NM BRAIN DATSCAN SPECT Routine 02/05/2024 2:43 PM EST Parkinsonism, unspecified Parkinsonism type (HCC) from Last 3 Months Results * Due to [place] maufait law, this organization might not be sharing negative HIV tests. 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 If this radiology report contains a blank impression section, it is an incomplete radiology report. ??Please contact the interpreting radiologist or applicable radiology division as soon as possible to obtain the completed interpretation. ? Workstation ID: [id number] Narrative 02/06/2024 3:17 PM EST EXAMINATION: DATscan. INDICATION: ??Tremor. ? TECHNIQUE: Lugol solution was administered prior to 5 mCi of [id number] ??injected IV. ??3 hours after injection, SPECT was performed over a 35 minute time period. ??Sagittal, coronal, and transverse tomographic sections were reconstructed. COMPARISON: None. FINDINGS: The scan demonstrates abnormal tracer distribution with decreased tracer uptake in bilateral putamina and caudate and greater than expected background noise. ? Calculations are limited by poor tracer uptake, particularly at the level of the putamina. Using region of interest measurements, the binding ratios (BR) of caudate and putamen relative to occipital cortex is as follows: Caudate: Rt 1.9 ??Lt 1.9 Putamen: Rt 1.4 ??Lt 0.8 Resulting Agency Comment [id number] Procedure Note Julita Dover MD - 02/06/2024 EXAMINATION: DATscan. INDICATION: Tremor. TECHNIQUE: Lugol solution was administered prior to 5 mCi of [id number] IV. 3 hours after injection, SPECT was performed over a 35minute time period. Sagittal, coronal, and transverse tomographicsections were reconstructed. COMPARISON: None. FINDINGS: The scan demonstrates abnormal tracer distribution with decreased traceruptake in bilateral putamina and caudate and greater than expectedbackground noise. Calculations are limited by poor tracer uptake, particularly at the levelof the putamina. 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 If this radiology report contains a blank impression section, it is anincomplete radiology report. Please contact the interpreting radiologistor applicable radiology division as soon as possible to obtain thecompleted interpretation. Workstation ID: [id number] Akua Maharaj MD IMG NM PROCEDURES Final Resu lt from Last 3 Months Insurance [facility] MEDICARE Care Teams Puttying And Calking Supervisor Relationship Specialty Start Date End Date Susy Sylvester [address] [place] [address] dr Oscar [place], BAR[place] [address] PCP - General Internal Medicine 06/14/23
--- OUTSIDE RECORDS SUMMARY | 2024-04-18 17:37 | XMS_ITS | Clinical Summary ---
Author Organization [facility] Address [address] [place] [address] Care Team Providers Care Spare Fixer Name Role Phone Susy Sylvester Primary Care Provider [phone] Allergies No known active allergies Medications meclizine [...] SMARTSI Tablet(s) By Mouth Daily 09/25/2023 Active Encounters Date Type Department Care Team Description 02/05/2024 9:45 AM EST - 02/05/2024 11:59 PM EST Hospital Encounter [facility] Nuclear Medicine [address] [place] [phone] Akua Maharaj MD Discharge Disposition: Home or Self Care () 02/05/2024 9:19 AM EST - 02/05/2024 9:44 AM EST Hospital Encounter [facility] Medicine [address] [place] [phone] Akua Maharaj MD Parkinsonism, unspecified Parkinsonism type (HCC) Discharge Disposition: Home or Self Care () from Last 3 Months Social History Tobacco Use Types Packs/Day Years [...] Description 06/05/2024 1:00 PM EDT Office Visit [facility] [address] [place], [place] [phone] Cristhian Ruff DO [address] [place], [place] [phone] Health Maintenance Due Date Last Done Comments Hepatitis C Screening 1945 Zoster Vaccines (1 of 2) 06/01/1997 Pneumococcal Vaccine: 65+ Years (1 of 1 - PCV) 06/01/2012 DTaP,Tdap,and Td Vaccines (2 - Td or Tdap) 04/20/2020 04/20/2010 RSV Vaccine (60+ years old and patients) (1 - 1-dose 75+ series) 06/01/2022 COVID-19 Vaccine ( - 2023-2 5 season) 2023 Influenza Vaccine (#1) 2023 3, 12/02/2016 Alcohol/Substance Use Screening 03/20/2024 Depression Screening and Follow-Up 03/20/2024 Fall Risk Screening 03/20/2024 Health Care Proxy Review 03/20/2024 Social Drivers of Health Annual Screening 03/20/2024 Tobacco Screening 03/20/2042 12/20/2023 Hepatitis B Vaccines Aged Out No long er eligible based on patient's age to complete this topic Procedures * Due to [place] [employer] law, this organization might not be sharing negative HIV tests. Procedure Name Priority Date/Time Associated Diagnosis Comments NM BRAIN DATSCAN SPECT Routine 02/05/2024 2:43 PM EST Parkinsonism, unspecified Parkinsonism type (HCC) from Last 3 Months Results * Due to [place] state law, this organization might not be sharing [...] obtain the completed interpretation. ? Workstation ID: [id number] Narrative 02/06/2024 3:17 PM EST EXAMINATION: DATscan. INDICATION: ??Tremor. ? TECHNIQUE: Lugol solution was administered prior to 5 mCi of [id number] ??injected IV. ??3 hours after injection, SPECT [...] Rt 1.4 ??Lt 0.8 Resulting Agency Comment [id number] Procedure Note Julita Dover MD - 02/06/2024 EXAMINATION: DATscan. INDICATION: Tremor. TECHNIQUE: Lugol solution was administered prior to 5 mCi of [id number] IV. 3 hours after injection, SPECT was [...] possible to obtain thecompleted interpretation. Workstation ID: [id number] Akua Maharaj MD IM NM PROCEDURES Final Resu lt from Last 3 Months Insurance [facility] MEDICARE Care Teams Spare Fixer Relationship Specialty Start Date End Date Susy Sylvester [address] [place] [address] [place] [address] PCP - General Internal Medicine 06/14/23
--- OUTSIDE RECORDS SUMMARY | 2024-04-18 17:37 | XMS_ITS | Data Portability ---
Author Organization [facility] [address] Address [address] [place] [address] Care Team Providers Care Stadium Manager Name Role Phone [facility] Primary Care Provider Assessment No assessment recorded. Plan of Treatment Reminders Order Date Submit Date Provider Last Modified By Organization Details Last Modified Time Details Appointments None record ed. Lab None record ed. Referral None record ed. Procedures None record ed. Surgeries None record ed. Imaging XR, elbow, 3 or more view 023 03/27/19 [facility], [address] [place], [address], 17:46:19 XR, wrist, 3 or more view 023 03/27/19 [facility], [address] [place], [address], 3 17:45:16 Medication Orders None record ed. Patient TargetsNo targets recorded. Patient InstructionsNo instructions recorded. Reason for Referral None Reported. Results Created Date Observation Date Name Description Value Unit Range Abnormal Flag Note LastModifiedBy Organization Detail LastModifiedTime 03/27/19 23 03/27/2022 XR, wrist , 3 or more view No observ ation record ed. [email or web address] 1 [facility] [address] [place], [address], 03/27/2022 17:56:06 03/27/19 23 03/27/2022 XR, elbow , 3 or more view No observ ation record ed. [email or web address] 1 [facility] [address] [place], [address], 03/27/2022 17:56:07 Result Notes None recorded. Problems Name Problem SNOMED Code Status Onset Date Resolution Date Notes Provider Name and Address Organization Details Recorded Time Hypercholestero lemia 84291542 Active 2022 LES VERENICE null, PA - [facility] 3 15:46:31 Hypertensive disorder 11984285 Active 2022 LES VERENICE null, PA - [facility] 3 15:46:39 Parkinson's disease 51238498 Active 2022 LES VERENICE null, PA - [facility] 3 15:46:47 Problem Notes None recorded. Procedures Surgical History Date Name Laterality Status Provider Name and Address Organization Details Recorded Time 03/20/19 10 subtotal prostatectomy completed LES VERENICE PA - [facility] 03/27/2022 15:47:56 Imaging Results Imaging Date Name Status LastModified by Organiz ation Details LastModified Time 03/27/2022 XR, wrist, 3 or more view completed [email or web address] [facility] [address] [place], [address], 03/27/2022 17:56:06 03/27/2022 XR, elbow, 3 or more view completed [email or web address] [facility] [address] [place], [address], 03/27/2022 17:56:07 Procedure Notes None recorded. Medical Equipment None Reported. Allergies No known drug allergies Medications Name Sig Start Date Stop Date Status Note LastModified by Organization Details LastModified Time atorvastati n 40 mg tablet TAKE 1 TABLET BY MOUTH EVERY DAY active Not Available Not Available No t Available lisinopril 20 mg tablet TAKE 1 TABLET BY MOUTH EVERY DAY active Not Available Not Available No t Available clonazepam 0.5 mg tablet TAKE 1 TABLET BY MOUTH EVERYDAY AT BEDTIME active Not Available Not Available No t Available acetaminoph en 500 mg tablet TAKE 1 TAB ORALLY EVERY 6 HOURS NEEDED FOR PAIN active Not Available Not Available No t Available pramipexole 0.5 mg tablet TAKE 1 TABLET BY MOUTH THREE TIMES A DAY active Not Available Not Available No t Available meclizine 25 mg tablet TAKE 1 TABLET BY MOUTH THREE TIMES DAILY FOR 7 DAYS NEEDED FOR DIZZINESS 03/27 completed Not Available Not Available Not Available ibuprofen 400 mg tablet TAKE 1 TABLET BY MOUTH EVERY6 TO 8 HOURS NEEDED FOR PAIN active Not Available Not Available No t Available lisinopril 30 mg tablet TAKE 1 TABLET BY MOUTH EVERY DAY active Not Available Not Available No t Available omeprazole 20 mg capsule,del ayed release TAKE 1 CAPSULE BY MOUTH EVERY DAY FOR 90 DAYS active Not Available Not Available No t Available hydrochloro thiazide 25 mg tablet TAKE 1 TABLET BY MOUTH EVERY DAY active Not Available Not Available No t Available furosemide 20 mg tablet TAKE 1 TABLET BY MOUTH EVERY DAY active Not Available Not Available No t Available trihexyphen idyl 2 mg tablet TOME PEDRO PABLO TABLETA LASHON VECES AL LAKESHA CON LAS COMIDAS active Not Available Not Available No t Available carbidopa 25 mg-levodopa 100 mg tablet TAKE 1 TABLET BY MOUTH THREE TIMES A DAY FOR 90 DAYS active Not Available Not Available No t Available diclofenac 1 % topical gel PLEASE SEE ATTACHED FOR DETAILED DIRECTION S active Not Available Not Available No t Available fenofibrate 54 mg tablet TAKE 1 TABLET BY MOUTH EVERY DAY active Not Available Not Available No t Available Myrbetriq 25 mg tablet,exte nded release TAKE 1 TABLET BY MOUTH EVERY DAY active Not Available Not Available No t Available Vitals Date Recorded Body height Provider Name an d Address Organization Details Last Updated DateTime 03/27/2022 172.72 cm LES VERENICE PA - [facility] 03/27/2022 15:48:18 Date Recorded Body mass index (BMI) Body weight Provider Name and Address Organization Details Last Updated DateTime 03/27/2022 34.7 kg/m2 678067.06 g LES CALDERA PA - [facility] 03/27/2022 15:48:27 Date Recorded Pain severity - 0-10 verbal numeric rating [Score] - Reported Provider Name and Address Organization Details Last Updated DateTime 03/27/2022 8 LES CALDERA PA - [facility] 03/27/2022 15:48:47 Date Recorded Oxygen saturation Oxygen saturation in Arterial blood by Pulse oximetry Provider Name and Address Organization Details Last Updated DateTime 03/27/2022 98 % 98 % LES CALDERA PA - [facility] 03/27/2022 15:50:44 Date Recorded Heart rate Provider Name an d Address Organization Details Last Updated DateTime 03/27/2022 74 /min LES CALDERA PA - [facility] 03/27/2022 15:50:48 Date Recorded Respiratory rate Provider Name a nd Address Organization Details Last Updated DateTime 03/27/2022 18 /min LES CALDERA PA - [facility] 03/27/2022 15:50:50 Date Recorded Body temperature Provider Name a nd Address Organization Details Last Updated DateTime 03/27/2022 98.9 [degF] LES CALDERA PA - [facility] 03/27/2022 15:50:54 Date Recorded Systolic blood pressure Diastolic blood pressure Provider Name and Address Organization Details Last Updated DateTime 03/27/2022 134 mm[Hg] 63 mm[Hg] LES CALDERA PA - [facility] 03/27/2022 15:50:40 Social History Question Answer Notes LastModified by Organizat ion Details LastModified Time Tobacco Smoking Status Never Smoker LES novoa PA - [facility] 03/27/2022 15:47:04 What Is Your Level Of Alcohol Consumption? None Information not available 03/27/2022 Are You Currently Employed? No Information not available 03/27/2022 Do You Use Any Illicit Or Recreational Drugs? No Information not available 03/27/2022 Have You Recently Traveled Abroad? No Information not available 03/27/2022 Do You Or Have You Ever Used Any Other Forms Of Tobacco Or Nicotine? No Information not available 03/27/2022 Sex: Unknown Functional Status None recorded. Mental Status None recorded. Family History Nothing Reported. Medical History No medical history recorded. Past Encounters Encounter ID Performer Location Encounter Start Date Encounter Closed Date Diagnosis/Indication Diagnosis SNOMED-CT Code Diagnosis ICD10 Code Diagnosis Note [id number] [facility] [address] [place] [address] 03/27/2022 15:10:11 03/27/2022 17:36:55 Pain of left wrist 5377414613 20570 M25.532 No acute fracture of the wrist noted on x-ray. However, there is moderate degenerati ve changes on x-ray. This is likely secondary to arthritis which can occur with normal wear and tear. Please follow up with primary care doctor to manage this and/or continue further workup if symptoms are not improving with conservati ve measures. You may take Tylenol for pain, ice, rest and keep it elevated. Use of a wrist brace can help with pain as well. We dispensed one to you in clinic today. You may use this for comfort and relief of pain as needed. Please take your wrist out of the brace daily to stretch and perform range of motion as tolerated. Follow up with primary for continued care, especially if symptoms are not improving over the next week. Pain of le ft elbow joint [id number] 5290380 M25.522 No acute fracture of the elbow noted on x-ray. Please follow up with primary care doctor to manage this and/or continue further workup if symptoms are not improving with conservati ve measures over the next week. You may take Tylenol for pain, ice, rest and keep it elevated. Osteoarthr itis of wrist 652267413 M19.039 Health Concerns Section Related Observation LastModified by Organization Detai ls LastModified Time None Recorded Concern Status LastModified by Organization Details LastModified Time None Recorded Advance Directives Directive None Recorded Payers Encounter Date Sequence Insurance Name Policy Number Policy Vargas Covered Member ID Vargas Member ID Guarantor Name 03/27/2022 1 [place] [employer] Onur Colon [id number] Onur Colon 03/27/2022 2 [place] Onur Colon [id number] Onur Colon Notes Date Note Type Note Provider Name and Address Organization Details Recorded Time 03/27/2022 text/html Onur is a 76 yo left handed male M with PMH of HTN, HLD, parkinson's, GERD, here for left hand swelling that radiates up to forearm x 4 days. Here with dixie who is assisting in translation of [place]. She notes he has been avoiding using the left hand and using cane with the right hand only due to pain. No known trauma/injury. She asks him and he says no. She tells me he has no hx of dementia or alzheimers although patient is slow to respond and doesn't seem to remember what happened, noting I don't know, it was hurting when I woke up . Pain and swelling localized to the left wrist but radiating pain up to the left elbow. No redness or warmth. No fevers, chills, sweats, LE edema, CP, SOB, wheezing, skin infections/lacerati ons. No hx of diabetes. No hx of DVT or PE. Is on a loop diuretic per med report but granddaughter cannot tell me what he takes it for. SISI Ramos, [facility] [place], [address], PA - [facility] 03/27/2022 17:32:52
== END 2024-04-18 14:47 | disposition home or self-care (01) ==
PROVIDERS: PCP Internal Medicine; Visit Provider Nurse Practitioner Family
DX: K29.00 Acute gastritis without bleeding (principal)

== ENCOUNTER 2024-04-29 09:12 | Outpatient (AMB) | payer MEDICARE, MEDICAID, SELFPAY ==
--- NOTE | 2024-04-29 09:22 | HO.NEPHOV ---
Vital Signs 04/29/24 09:24 Height 5 ft 8 in Weight 244 lb BMI 37.1 BP 130/80 Blood Pressure Location Lt brachial Position Sitting Pulse 83 Pulse Source Pulse Oximeter Pulse Oximetry (%) 94 Oxygen Delivery Method Room Air Intake Visit Reasons: INP: CKD/ Conf Box Truck Driver Required: No Accompanied by: Son Allergies pravastatin Allergy (Intermediate, Verified 04/29/24 09:23) dry mouth HPI Comments Details: 78 year old male patient presented to the office today for CKD, hypertension and edema. He is accompanied by Son and daughter in law. He is known to have CKD for some time. He also has Parkinsons disease, HTN, Prostate CA as well as OAB. He has been having bilateral lower extremities Edema for over a month now without SOB, CP, Wheezing or dizziness. He is currently taking Gemtesa for OAB and follows with Urology for Prostate CA. He is not known to have significant proteinuria. He is on verapamil. He denies any CAD, CHF, CVA, PAD or OG. His serum creatinine has been around 1.15 [facility] Medical History (Updated 04/29/24 @ 09:43 by Corby Jennings MD) On allopurinol therapy Prostate cancer CKD (chronic kidney disease) stage 3, GFR 30-59 ml/min Skin lesion Left knee pain Chronic pain syndrome Sacroiliac dysfunction Sacroiliitis Spondylosis without myelopathy or radiculopathy, lumbar region Adult general medical exam Screening for colon cancer Leg edema Urgency incontinence Parkinsons disease Mixed hyperlipidemia Essential hypertension GERD (gastroesophageal reflux disease) Lumbar degenerative disc disease Surgical History History of esophagogastroduodenoscopy (EGD) History of cataract surgery History of colonoscopy History of basal cell carcinoma (BCC) excision History of prostatectomy Family History Father No problems noted. Mother Diabetes Cancer Social History Household Members Other:: granddaughter Housing: Apartment Are you a primary housekeeper child care to a significant other at home: No Do you presently have visiting nurse or other home services: No Alcohol intake: former Patient Tobacco Use Status: Never used Tobacco e-Cigarette/Vaping Use: Never Used Second Hand Smoke Exposure: No Advance Directives Date on File: 08/18/23 service: No Current occupational status: disabled Current occupation: lt handed Cognitive needs: Yes Hearing needs: No Vision needs: No Review of Systems Const All systems reviewed & are unremarkable except as noted in HPI and below Physical Exam Vital Signs: Last Vital Signs Pulse 83 04/29/24 09:24 BP 130/80 04/29/24 09:24 Pulse Ox 94 04/29/24 09:24 Oxygen Delivery Method Room Air 04/29/24 09:24 BMI result Body Mass Index 37.1 Const General: comfortable and no acute distress Orientation/consciousness: patient oriented x3 HEENT Head: Yes normocephalic Mouth: Normal oral and palatal mucosa present Eyes EOM: EOMs intact bilaterally Neck Neck: Yes supple Resp Auscultation: clear to auscultation bilaterally Cardio Jugular venous distension: no JVD Rate: regular rate GI Palpation (GI): Soft to palpation Auscultation: normal bowel sounds General: Yes no CVA tenderness Back/Spine/Pelvis Back: no CVA tenderness Skin General skin exam: no rashes or lesions noted Neuro General: patient oriented x3 and moves all extremities Extrem General: Yes edema Results Reviewed Nephrology Results: Hgb 13.9 g/dl (14.0-18.0) L 04/04/24 WBC 6.5 X10*3/uL (4.8-10.8) 04/04/24 Plt Count 194 X10*3/uL (160-400) 04/04/24 Sodium 139 mmol/L (135-145) 04/04/24 Potassium 4.1 mmol/L (3.3-5.1) 04/04/24 Chloride 107 mmol/L (96-108) 04/04/24 Carbon Dioxide 24 mmol/L (22-29) 04/04/24 BUN 29 mg/dL (9-16) H 04/04/24 Creatinine 1.15 mg/dL (0.5-1.4) 04/04/24 Calcium 9.5 mg/dL (8.4-10.2) 04/04/24 Assessment & Plan Assessment & Plan (1) Renal cyst: Code(s): N28.1 - Cyst of kidney, acquired Category: Medical (2) CKD stage 3a, GFR 45-59 ml/min: Code(s): N18.31 - Chronic kidney disease, stage 3a Category: Medical (3) Leg edema: Code(s): R60.0 - Localized edema Category: Medical (4) Hypertension: Code(s): I10 - Essential (primary) hypertension Category: Medical Qualifiers: Hypertension type: primary hypertension Qualified Code(s): I10 - Essential (primary) hypertension Plan Has CKD 3 likely from vascular disease. He likely has some RHF. I ordered ECHO. He likely will need sleep study after ECHO. His urine protein is negative . He has edema ? likely from RHF vs medication ( verapamil). He is tolerating ACEI. Minimize PO Na. Avoid NSAID's. His urine output is good. He should avoid NSAID's. I started him on torsemide 20 mg every other day. Follow up blood work ordered. Answered all questions Orders: Orders B Type Natriuretic Peptide 3 Weeks I10 - Essential (primary) hypertension, N18.31 - Chronic kidney disease, stage 3a, R60.0 - Localized edema CA echo transthoracic complete 3 Weeks I10 - Essential (primary) hypertension, N18.31 - Chronic kidney disease, stage 3a, R60.0 - Localized edema Creatinine 3 Weeks I10 - Essential (primary) hypertension, N18.31 - Chronic kidney disease, stage 3a, N28.1 - Cyst of kidney, acquired, R60.0 - Localized edema Blood Urea Nitrogen 3 Weeks I10 - Essential (primary) hypertension, N18.31 - Chronic kidney disease, stage 3a, N28.1 - Cyst of kidney, acquired, R60.0 - Localized edema Electrolytes 3 Weeks I10 - Essential (primary) hypertension, N18.31 - Chronic kidney disease, stage 3a, N28.1 - Cyst of kidney, acquired, R60.0 - Localized edema Protein Creatinine Ratio, Ur 3 Weeks I10 - Essential (primary) hypertension, N18.31 - Chronic kidney disease, stage 3a, N28.1 - Cyst of kidney, acquired, R60.0 - Localized edema Medications: New torsemide 20 mg PO .alternate days 30 days 14 tabs 6RF Coding Level of Care Code New Pt Level 4 (41315) Diagnoses Renal cyst N28.1 CKD stage 3a, GFR 45-59 ml/min N18.31 Leg edema R60.0 Primary hypertension I10 Hypertension type: primary hypertension
[2024-04-29 09:24] VITALS: BP 130/80; PULSE 83; O2SAT 94; BMI 37.1
--- OUTSIDE RECORDS SUMMARY | 2024-04-29 09:41 | XMS_ITS | Clinical Summary ---
Author Organization [facility] Address [address] [place] [address] Care Team Providers Care Inside Sales Agent Name Role Phone Susy Sylvester Primary Care Provider [phone] Allergies No known active allergies Medications meclizine [...] - 02/05/2024 11:59 PM EST Hospital Encounter [facility] Nuclear Medicine [address] [place] [phone] Akua Maharaj MD Discharge Disposition: Home or Self Care () 02/05/2024 9:19 AM EST - 02/05/2024 9:44 AM EST Hospital Encounter [facility] Nuclear Medicine [address] [place] [phone] Akua Maharaj MD Parkinsonism, unspecified Parkinsonism type [...] Description 06/05/2024 1:00 PM EDT Office Visit [facility] [address], [place] [id number] Cristhian Ruff DO [address] [place], [place] [id number] Health Maintenance Due Date Last Done Comments [...] complete this topic Procedures * Due to [place] i[employer]ician law, this organization might not be sharing negative HIV tests. Procedure Name Priority Date/Time Associated Diagnosis Comments NM BRAIN DATSCAN SPECT Routine 02/05/2024 2:43 PM EST Parkinsonism, unspecified Parkinsonism type (HCC) from Last 3 Months Results * Due to [place] state law, this organization might not be [...] obtain the completed interpretation. ? Workstation ID: [id number] Narrative 02/06/2024 3:17 PM EST EXAMINATION: DATscan. INDICATION: ??Tremor. ? TECHNIQUE: Lugol solution was administered prior to 5 mCi of [id number] ??injected IV. ??3 hours after injection, SPECT [...] Rt 1.4 ??Lt 0.8 Resulting Agency Comment [id number] Procedure Note Julita Dover MD - 02/06/2024 EXAMINATION: DATscan. INDICATION: Tremor. TECHNIQUE: Lugol solution was administered prior to 5 mCi of [id number] IV. 3 hours after injection, SPECT was [...] possible to obtain thecompleted interpretation. Workstation ID: [id number] Akua Maharaj MD IM NM PROCEDURES Final Resu lt from Last 3 Months Insurance [facility] MEDICARE Care Teams Inside Sales Agent Relationship Specialty Start Date End Date Susy Sylvester [address] [place] [address] [place] [address] PCP - General Internal Medicine 06/14/23
--- OUTSIDE RECORDS SUMMARY | 2024-04-29 09:41 | XMS_ITS | Encounter Summary ---
Author Organization [facility] Address [address] [place] [address] Care Team Providers Care Senior Geologist Name Role Phone Susy Sylvester Primary Care Provider [phone] Encounter Details Date Type Department Care Team (Late st Contact Info) Description 12/21/2023 Orders Only [facility] Nuclear Medicine [address] [place] [address] Jake Angulo MD PhD [address] [place] [address] Social History Tobacco Use Types Packs/Day Years [...] Description 06/05/2024 1:00 PM EDT Office Visit [facility]rology Clinic [address] [place] [address] Cristhian Ruff DO [address] [place] [address] documented as of this encounter Visit Diagnoses Not on filedocumented in this encounter Care Teams Senior Geologist Relationship Specialty Start Date End Date Susy Sylvester [address] [place] [address] dr [place], [place] [address] PCP - General Internal Medicine 06/14/23 documented as of this encounter
--- OUTSIDE RECORDS SUMMARY | 2024-04-29 09:41 | XMS_ITS | Encounter Summary ---
Author Organization [facility] Address [address] [place] [address] Care Team Providers Care Charging Car Operator Name Role Phone Rochelle Mckeon MD Primary Care Provider Un available Community, Pcp Primary Care Provider Unavailabl e Encounter Details Date Type Department Care Team Description 09/27/2018 Auditor In Charge Report Medical Records [address] [place] [address] Kelvin Jacob MD Social History Tobacco Use Types Packs/Day Years Used Date Smoking Tobacco: Never Smokeless Tobacco: Never Alcohol Use Standard Drinks/Week Comments No 0 (1 standard drink = 0.6 oz pur e alcohol) Sex Assigned at Date Recorded Not on file documented as of this encounter Plan of Treatment Not on file documented as of this encounter Visit Diagnoses Not on filedocumented in this encounter Care Teams Charging Car Operator Relationship Specialty Start Date End Date Rochelle Mckeon MD PCP - General Internal Medicine 10/10/1603/01 Community, Pcp PCP - General Internal Medicine 03/02/21 documented as of this encounter
--- OUTSIDE RECORDS SUMMARY | 2024-04-29 09:41 | XMS_ITS | Referral Summary ---
Author Organization [facility] Address [address] [place] [address] Care Team Providers Care Convolute Tube Winder Name Role Phone Susy Sylvester Primary Care Provider [phone] Encounters Date Type Department Care Team Description 02/05/2024 9:45 AM EST - 02/05/2024 11:59 PM EST Hospital Encounter [facility] Nuclear Medicine [address] [place] [phone] Akua Maharaj MD Discharge Disposition: Home or Self Care () 02/05/2024 9:19 AM EST - 02/05/2024 9:44 AM EST Hospital Encounter [facility] Nuclear Medicine [address] [place] [phone] Akua Maharaj MD Parkinsonism, unspecified Parkinsonism type [...] Description 06/05/2024 1:00 PM EDT Office Visit [facility]rology Clinic [address] [place] [address] Cristhian Ruff DO [address] [place] [address] Procedures * Due to [facility] law, this organization might not be sharing negative HIV tests. Procedure Name Priority Date/Time Associated Diagnosis Comments NM BRAIN DATSCAN SPECT Routine 02/05/2024 2:43 PM EST Parkinsonism, unspecified Parkinsonism type (HCC) from Last 3 Months Results * Due to [place] 7fgame law, this organization might not be sharing [...] obtain the completed interpretation. ? Workstation ID: [id number] Narrative 02/06/2024 3:17 PM EST EXAMINATION: DATscan. INDICATION: ??Tremor. ? TECHNIQUE: Lugol solution was administered prior to 5 mCi of [id number] ??injected IV. ??3 hours after injection, SPECT [...] Rt 1.4 ??Lt 0.8 Resulting Agency Comment [id number] Procedure Note Julita Dover MD - 02/06/2024 EXAMINATION: DATscan. INDICATION: Tremor. TECHNIQUE: Lugol solution was administered prior to 5 mCi of [id number] IV. 3 hours after injection, SPECT was [...] possible to obtain thecompleted interpretation. Workstation ID: [id number] Akua Maharaj MD IMG NM PROCEDURES Final Resu lt from Last 3 Months Insurance [facility] MEDICARE Care Teams Convolute Tube Winder Relationship Specialty Start Date End Date Susy Sylvester [address] [place] [address] dr [place], [place] [address] PCP - General Internal Medicine 06/14/23
--- OUTSIDE RECORDS SUMMARY | 2024-04-29 09:41 | XMS_ITS | Clinical Summary ---
Author Organization [facility] Address [address] [place] [address], [place] [address] Care Team Providers Care Second Mate Name Role Phone Susy Sylvester MD Primary Care Provider [phone] Allergies No known active allergies Medications trihexyphenidyl [...] age to complete this topic Insurance [address] [place] [address] [place] Care Teams Second Mate Relationship Specialty Start Date End Date Susy Sylvester MD [address] [place], [place] PCP - General Internal Medicine 03/31/22
--- OUTSIDE RECORDS SUMMARY | 2024-04-29 09:41 | XMS_ITS | Encounter Summary ---
Author Organization [facility] Address [address] [place] [address] Care Team Providers Care Bereavement Program Coordinator Name Role Phone Rochelle Mckeon MD Primary Care Provider Un available Community, Pcp Primary Care Provider Unavailabl e Encounter Details Date Type Department Care Team Description 05/08/2019 Phonograph Cartridge Assembler Report Medical Records [address] [place] [address] Kelvin Jacob MD Social History Tobacco Use [...] on filedocumented in this encounter Care Teams Bereavement Program Coordinator Relationship Specialty Start Date End Date Rochelle Mckeon MD PCP - General Internal Medicine 10/10/1603/01 Community, Pcp PCP - General Internal Medicine 03/02/21 documented as of this encounter
--- OUTSIDE RECORDS SUMMARY | 2024-04-29 09:41 | XMS_ITS | Encounter Summary ---
Author Organization [facility] Address [address] [place] [address] Care Team Providers Care End Maker Name Role Phone Rochelle Mckeon MD Primary Care Provider Un available Community, Pcp Primary Care Provider Unavailabl e Encounter Details Date Type Department Care Team Description 03/07/2017 Supervisor Channel Process Report Medical Records [address] [place] [address] Kelvin Jacob MD Social History Tobacco Use [...] on filedocumented in this encounter Care Teams End Maker Relationship Specialty Start Date End Date Rochelle Mckeon MD PCP - General Internal Medicine 10/10/1603/01 Community, Pcp PCP - General Internal Medicine 03/02/21 documented as of this encounter
--- OUTSIDE RECORDS SUMMARY | 2024-04-29 09:41 | XMS_ITS | Encounter Summary ---
Author Organization [facility] Address [address] [place] [address] Care Team Providers Care History Professor Name Role Phone Rochelle Mckeon MD Primary Care Provider Un available Community, Pcp Primary Care Provider Unavailabl e Encounter Details Date Type Department Care Team Description 08/03/2020 Scrap Carrier Report Medical Records [address] [place] [address] Kelvin Jacob MD Social History Tobacco Use [...] on filedocumented in this encounter Care Teams History Professor Relationship Specialty Start Date End Date Rochelle Mckeon MD PCP - General Internal Medicine 10/10/1603/01 Community, Pcp PCP - General Internal Medicine 03/02/21 documented as of this encounter
--- OUTSIDE RECORDS SUMMARY | 2024-04-29 09:41 | XMS_ITS | Encounter Summary ---
Author Organization [facility] Address [address] [place] [address] Care Team Providers Care Senior C Developer Name Role Phone Rochelle Mckeon MD Primary Care Provider Un available Community, Pcp Primary Care Provider Unavailabl e Encounter Details Date Type Department Care Team Description 06/13/2017 [facility] [address] [place] [address] Gareth Richard DO Social History Tobacco Use Types Packs/Day Years [...] filedocumented in this encounter Care Teams Senior C Developer Relationship Specialty Start Date End Date Rochelle Mckeon MD PCP - General Internal Medicine 10/10/1603/01 Community, Pcp PCP - General Internal Medicine 03/02/21 documented as of this encounter
--- OUTSIDE RECORDS SUMMARY | 2024-04-29 09:41 | XMS_ITS | Encounter Summary ---
Author Organization [facility] Address [address] [place] [address] Care Team Providers Care Carpenter Foreman Name Role Phone Rochelle Mckeon MD Primary Care Provider Un available Community, Pcp Primary Care Provider Unavailabl e Reason for Visit * Reason Onset Date Comments Extrusion Engineer Feedback 12/05/2016 Urology Encounter Details Date Type Department Care Team Description 12/05/2016 Telephone Adult Medicine [address] [id number] Tammy Gallardo DO Extrusion Engineer Feedback (Urology) Social History Tobacco Use Types Packs/Day Years Used Date Smoking Tobacco: Never Sex Assigned at Date Recorded Not on file documented as of this encounter Miscellaneous Notes * Telephone Encounter - Tammy Lawson DO - 12/06/2016 1:40 PM EDT They aren't available. Done in [place] * Telephone Encounter - Juan Luis Smith - 12/06/2016 9:27 AM EDT If possible could these be placed in [facility] so we can schedule appt. Thanks * Telephone Encounter - Tammy Lawson DO - 12/05/2016 3:16 PM EDT Pathology may be in [place] * Telephone Encounter - Juan Luis Smith - 12/05/2016 2:[address] Whitfield You have placed a referral to see Urology. Unfortunately, After speaking to Dr. Stratton's office they stated that the patient no showed on 04/09/2015, but they also cannot schedule an appointmentwithout a path report according to the diagnosis. Thank you, Rich documented in this encounter Plan of Treatment Not on file documented as of this encounter Visit Diagnoses Not on filedocumented in this encounter Care Teams Carpenter Foreman Relationship Specialty Start Date End Date Rochelle Mckeon MD PCP - General Internal Medicine 10/10/1603/01 [facility], Pcp PCP - General Internal Medicine 03/02/21 documented as of this encounter
--- OUTSIDE RECORDS SUMMARY | 2024-04-29 09:41 | XMS_ITS | Data Portability ---
Author Organization [facility] [address] Address [address] [place] [address] Care Team Providers Care Warehouse Assistant Name Role Phone [facility] Primary Care Provider Assessment No assessment recorded. Plan of Treatment Reminders Order Date Submit Date Provider Last Modified By Organization Details Last Modified Time Details Appointments None record ed. Lab None record ed. Referral None record ed. Procedures None record ed. Surgeries None record ed. Imaging XR, elbow, 3 or more view 023 03/27/19 [facility], [address] [place], [address], 17:46:19 XR, wrist, 3 or more view 023 03/27/19 [facility], [address] [place], [address], 3 17:45:16 Medication Orders None record ed. Patient TargetsNo targets recorded. Patient InstructionsNo instructions recorded. Reason for Referral None Reported. Results Created Date Observation Date Name Description Value Unit Range Abnormal Flag Note LastModifiedBy Organization Detail LastModifiedTime 03/27/19 23 03/27/2022 XR, wrist , 3 or more view No observ ation record ed. [email or web address] 1 [facility] [address] [place], [address], 03/27/2022 17:56:06 03/27/19 23 03/27/2022 XR, elbow , 3 or more view No observ ation record ed. [email or web address] 1 [facility] [address] [place], [address], 03/27/2022 17:56:07 Result Notes None recorded. Problems Name Problem SNOMED Code Status Onset Date Resolution Date Notes Provider Name and Address Organization Details Recorded Time Hypercholestero lemia 31105549 Active 2022 LES VERENICE null, [place] - [facility] 3 15:46:31 Hypertensive disorder 66258501 Active 2022 LES VERENICE null, [place] - [facility] 3 15:46:39 Parkinson's disease 50959833 Active 2022 LES VERENICE null, PA - [...] completed [email or web address] [facility] [address] [place], [address], 03/27/2022 17:56:06 03/27/2022 XR, elbow, 3 or more view completed [email or web address] [facility] [address] [place], [address], 03/27/2022 17:56:07 Procedure Notes None recorded. Medical [...] height Body mass index (BMI) Body weight Pain severity - 0-10 verbal numeric rating [Score] - Reported Oxygen saturation Oxygen saturation in Arterial blood by Pulse oximetry Heart rate Respiratory rate Body temperature Systolic blood pressure Diastolic blood pressure Provider Name and Address Organization Details Last Updated DateTime 3 172.72 cm 34.7 kg/m2 166917. 06 g 8 98 % 98 % 74 /min 18 /min 98.9 [degF] 134 mm[Hg] 63 mm[Hg] LES CALDERA [place] - [facility] 3 15:50:40 Social History Question Answer Notes LastModified by Organizat ion Details LastModified Time Tobacco Smoking Status Never Smoker LES CALDERA null, [place] - [facility] 03/27/2022 15:47:04 What [...] SNOMED-CT Code Diagnosis ICD10 Code Diagnosis Note [id number] [facility]ONEY [address] [address] 03/27/2022 15:10:11 03/27/2022 17:36:55 Pain of left wrist 8675041277 17997 M25.532 No acute fracture of the wrist [...] week. Pain of le ft elbow joint 3847672616 9272001 M25.522 No acute fracture of the elbow noted on x-ray. Please follow up with primary care doctor to manage this and/or continue further workup if symptoms are not improving with conservati ve measures over the next week. You may take Tylenol for pain, ice, rest and keep it elevated. Osteoarthr itis of wrist 404948285 M19.039 Health Concerns Section Related Observation LastModified by Organization Detai ls LastModified Time None Recorded Concern Status LastModified by Organization Details LastModified Time None Recorded Advance Directives Directive None Recorded Payers Encounter Date Sequence Insurance Name Policy Number Policy Vargas Covered Member ID Vargas Member ID Guarantor Name 03/27/2022 1 [place] B[place] [facility] Onur Colon [id number] Onur Colon 03/27/2022 2 [place] [facility] Onur Colon [id number] Onur Colon Notes Date Note Type Note Provider Name and Address Organization Details Recorded Time 03/27/2022 text/html Onur is a 76 yo left handed male M with PMH of HTN, HLD, parkinson's, GERD, here for left hand swelling that radiates up to forearm x 4 days. Here with dixie who is assisting in translation of peruvian. She notes he has been avoiding using [...] he takes it for. SISI Ramos, BELLO [address] [place], [address], [place] - [facility] 03/27/2022 17:32:52
== END 2024-04-29 09:57 | disposition home or self-care (01) ==
PROVIDERS: PCP Internal Medicine; Referring Provider Internal Medicine; Visit Provider Internal Medicine Nephrology
DX: N28.1 Cyst of kidney, acquired (principal); N18.31 Chronic kidney disease, stage 3a; R60.0 Localized edema; I10 Essential (primary) hypertension
CPT/HCPCS: 99204

== ENCOUNTER → 2024-04-29 09:12 | Outpatient (BNVA) | payer MEDICARE, MEDICAID, SELFPAY | PROVIDERS: PCP Internal Medicine; Referring Provider Internal Medicine; Visit Provider Internal Medicine Nephrology | DX: I12.9 Hypertensive chronic kidney disease with stage 1 through stage 4 chronic kidney disease, or unspecified chronic kidney disease (principal); N18.31 Chronic kidney disease, stage 3a; N28.1 Cyst of kidney, acquired; R60.0 Localized edema | CPT/HCPCS: 99202 ==

== ENCOUNTER 2024-05-20 07:45 | Outpatient (REF) | payer MEDICARE, MEDICAID, SELFPAY ==
--- OUTSIDE RECORDS SUMMARY | 2024-05-20 07:49 | XMS_ITS | Clinical Summary ---
Author Organization [facility] Address [address] [place] [address] Care Team Providers Care Bilingual Medical Assistant Name Role Phone Susy Sylvester Primary Care Provider [phone] Allergies No known active allergies Medications meclizine [...] Description 06/05/2024 1:00 PM EDT Office Visit [facility] [address] [place] [address] Cristhian Ruff DO [address] [place] [address] Health Maintenance Due Date Last Done Comments Hepatitis C Screening 1945 Pneumococcal Vaccine: 50+ Years (1 of 1 - PCV) 06/01/1997 Zoster Vaccines (1 of 2) 06/01/1997 DTaP,Tdap,and Td Vaccines (2 - Td or Tdap) 04/20/2020 04/20/2010 RSV Vaccine (60+ years old and patients) (1 - 1-dose 75+ series) 06/01/2022 COVID-19 Vaccine (1 - 2023-2 5 season) 2023 Influenza Vaccine (#1) 2023 , 12/02/2016 Alcohol/Substance Use Screening 03/20/2024 Depression Screening and Follow-Up 03/20/2024 Fall Risk Screening 03/20/2024 Health Care Proxy Review 03/20/2024 Social Drivers of Health Annual Screening 03/20/2024 Tobacco Screening 03/20/2042 12/20/2023 Hepatitis B Vaccines Aged Out No long er eligible based on patient's age to complete this topic Insurance [facility] MEDICARE Care Teams Bilingual Medical Assistant Relationship Specialty Start Date End Date Susy Sylvester [address] [facility] [address] [place], [place] [address] PCP - General Internal Medicine 06/14/23
--- OUTSIDE RECORDS SUMMARY | 2024-05-20 07:49 | XMS_ITS | Encounter Summary ---
Author Organization [facility] Address [address] [place] [address] Care Team Providers Care Research Geologist Name Role Phone Susy Sylvester Primary Care Provider [phone] Encounter Details Date Type Department Care Team (Late st Contact Info) Description 12/21/2023 Orders Only [facility] Nuclear Medicine [address] [place] [address] Jake Angulo MD PhD [address] [place] [address] Social History Tobacco Use Types Packs/Day Years [...] Description 06/05/2024 1:00 PM EDT Office Visit [facility] [address] [place] [address] Cristhian Ruff DO [address] [place] [address] documented as of this encounter Visit Diagnoses Not on filedocumented in this encounter Care Teams Research Geologist Relationship Specialty Start Date End Date Susy Sylvester [address] [place] [address] dr Oscar [place], [place] [address] PCP - General Internal Medicine 06/14/23 documented as of this encounter
--- OUTSIDE RECORDS SUMMARY | 2024-05-20 07:49 | XMS_ITS | Referral Summary ---
Author Organization [facility] Address [address] [place] [address] Care Team Providers Care Hospice Volunteer Coordinator Name Role Phone Mika ArthurteiSusy Primary Care Provider [phone] Allergies No known active allergies Medications meclizine [...] Description 06/05/2024 1:00 PM EDT Office Visit [facility] [address] [place] [address] Cristhian Ruff DO [address] [place] [address] [place] [id number] [facility] MEDICARE Care Teams Hospice Volunteer Coordinator Relationship Specialty Start Date End Date Susy Sylvester [address] [place] [address] [place] [address] PCP - General Internal Medicine 06/14/23
--- OUTSIDE RECORDS SUMMARY | 2024-05-20 07:49 | XMS_ITS | Data Portability ---
Author Organization [facility], [address] Address [address] [place] [address] Care Team Providers Care Dye Range Feeder Name Role Phone [facility] Primary Care Provider Assessment No assessment recorded. Plan of Treatment Reminders Order Date Submit Date Provider Last Modified By Organization Details Last Modified Time Details Appointments None record ed. Lab None record ed. Referral None record ed. Procedures None record ed. Surgeries None record ed. Imaging XR, elbow, 3 or more view 023 03/27/19 [facility], [address] [place], [address], 17:46:19 XR, wrist, 3 or more view 023 03/27/19 [facility], [address] [place], [address], 17:45:16 Medication Orders None record ed. Patient TargetsNo targets recorded. Patient InstructionsNo instructions recorded. Reason for Referral None Reported. Results Created Date Observation Date Name Description Value Unit Range Abnormal Flag Note LastModifiedBy Organization Detail LastModifiedTime 03/27/19 23 03/27/2022 XR, wrist , 3 or more view No observ ation record ed. [email or web address] 1 [facility] [address] [place], [address], 03/27/2022 17:56:06 03/27/19 23 03/27/2022 XR, elbow , 3 or more view No observ ation record ed. [email or web address] 1 [facility] [address] [place], [address], 03/27/2022 17:56:07 Result Notes None recorded. Problems Name Problem SNOMED Code Status Onset Date Resolution Date Notes Provider Name and Address Organization Details Recorded Time Hypercholestero lemia 31415362 Active 2022 LES VERENICE null, [place] - [facility] 3 15:46:31 Hypertensive disorder 12037561 Active 2022 LES VERENICE null, [place] - [facility] 3 15:46:39 Parkinson's disease 02748102 Active 2022 LES VERENICE null, PA - [...] completed [email or web address] [facility] [address] [place], [address], 03/27/2022 17:56:06 03/27/2022 XR, elbow, 3 or more view completed [email or web address] [facility] [address] [place], [address], 03/27/2022 17:56:07 Procedure Notes None recorded. Medical [...] Updated DateTime 3 172.72 cm 34.7 kg/m2 298840. 06 g 8 98 % 98 % [...] SNOMED-CT Code Diagnosis ICD10 Code Diagnosis Note [id number] [facility]Y [address] [address] 03/27/2022 15:10:11 03/27/2022 17:36:55 Pain of left wrist 7163121071 [address] M25.532 No acute fracture of the wrist [...] week. Pain of le ft elbow joint 7861448866 8772434 M25.522 No acute fracture of the elbow noted on x-ray. Please follow up with primary care doctor to manage this and/or continue further workup if symptoms are not improving with conservati ve measures over the next week. You may take Tylenol for pain, ice, rest and keep it elevated. Osteoarthr itis of wrist 859976415 M19.039 Health Concerns Section Related Observation LastModified by Organization Detai ls LastModified Time None Recorded Concern Status LastModified by Organization Details LastModified Time None Recorded Advance Directives Directive None Recorded Payers Encounter Date Sequence Insurance Name Policy Number Policy Vargas Covered Member ID Vargas Member ID Guarantor Name 03/27/2022 1 [place] [employer] [employer] Onur Colon [id number] Onur Colon 03/27/2022 2 [place]: [facility] Onur Colon [id number] Onur Colon Notes Date Note Type Note Provider Name and Address Organization Details Recorded Time 03/27/2022 text/html Onur is a 76 yo left handed male M with PMH of HTN, HLD, parkinson's, GERD, here for left hand swelling that radiates up to forearm x 4 days. Here with dixie who is assisting in translation of stateless. She notes he has been avoiding using [...] Ramos, BELLO [address] [place], [address], [place] - [facility] 03/27/2022 17:32:52
--- OUTSIDE RECORDS SUMMARY | 2024-05-20 07:49 | XMS_ITS | Clinical Summary ---
Author Organization [facility] Address [address] [place] [address] Care Team Providers Care Reinforcing Bar Setter Name Role Phone Susy Sylvester MD Primary Care Provider [phone] Allergies No known active allergies Medications trihexyphenidyl [...] age to complete this topic Insurance [address] [place] [address] [place] Care Teams Reinforcing Bar Setter Relationship Specialty Start Date End Date Susy Sylvester MD [address] [place], [place] PCP - General Internal Medicine 03/31/22
--- OUTSIDE RECORDS SUMMARY | 2024-05-20 07:50 | XMS_ITS | Data Portability ---
Author Organization [place] [facility] Address [address] [place] [address] Assessment Encounter Date Assessment Date Assessment LastModified by Organization Details LastModified Time 10/30/2023 10/30/2023 78 year old Egyptian speaking male with a history of dementia [...] ed. Surgeries None record ed. Imaging CT, sinuse s, w/o contra st 2023 024 [email or web address], [address] [place] [address], [address], 4 11:35:27 CT, maxill ofacia l, w/o contra st 2023 024 [facility], [address] [place] [address], [address], 4 10:11:43 Medication Orders doxycy maciel hyclat e 100 mg tablet 2023 [facility], [address] [place] [address], [id number], 4 10:36:41 flutic asone propio mynor 50 mcg/ac tuatio n nasal spray, suspen padmini 2023 [facility], [address] [place] [address], [id number], 4 14:57:14 Patient TargetsNo targets recorded. Patient InstructionsNo instructions recorded. Reason for Referral None Reported. Results Created Date Observation Date Name Description Value Unit Range Abnormal Flag Note LastModifiedBy Organization Detail LastModifiedTime 12/08/[address], sinus es, w/o contr ast No observ ation record ed. [email or web address] [address], [address], 12/08/2023 11:35:24 Result Notes None recorded. Problems Name Problem SNOMED Code Status Onset Date Resolution Date Notes Provider Name and Address Organization Details Recorded Time Nasal congestion 97448823 Active JAYSON SHIELDS MD [address] [place] [address], [address], [facility] - [facility] 4 11:58:59 Chronic maxillary sinusitis 19032596 Active JAYSON SHIELDS MD [address] [facility], [place], [address], [place] - [facility] [place] 4 12:00:46 Chronic rhinitis 33717412 Active 024 JAYSON SHIELDS MD [address] [facility], [place], [address], [place] - [facility] 4 12:01:02 Chronic sinusitis 31930290 Active 024 JAYSON SHIELDS MD [address] [facility], [place], [address], [place] - [facility] 4 12:01:02 Polyp of nasal cavity 031038859 Active 024 JAYSON SHIELDS MD [address] [facility], [place], [address], [place] - [facility] 4 13:04:18 Parkinson's disease 69287655 Active 024 JAYSON SHIELDS MD [address] [facility], [place], [address], [place] - [facility] 4 11:34:00 Impaired cognition 620793271 Active 024 JAYSON SHIELDS MD [address] [facility], [place], [address], [place] - [facility] 4 11:34:12 Problem Notes None recorded. Procedures Surgical History Date Name Laterality Status Provider Name and Address Organization Details Recorded Time 4 JMSNasal/Sinus Endoscopy completed JAYSON ALEXANDER MD [address], [address], [place] - [facility] 10/30/2023 12:04:04 Cataract Surgery completed Deny Blanca [place] - [facility] 10/30/2023 11:20:20 excision of basal cell carcinoma completed Deny Blanca [place] - [facility] 10/30/2023 11:20:58 Imaging Results Imaging Date Name Status LastModified by Organiz ation Details LastModified Time 12/08/2023 CT, sinuses, w/o contrast completed [email or web address] [facility] [address], [place], [address], 12/08/2023 11:35:24 Procedure Notes None recorded. Medical [...] Updated DateTime 10/30/2023 172.72 cm 32.8 kg/m2 94408.95 g Deny Blanca [place] - [facility] 10/30/2023 11:37:14 Social History None recorded. Functional Status None recorded. Mental Status None recorded. Family History Nothing Reported. Medical History No medical history recorded. Past Encounters Encounter ID Performer Location Encounter Start Date Encounter Closed Date Diagnosis/Indication Diagnosis SNOMED-CT Code Diagnosis ICD10 Code Diagnosis Note [id number] JAYSON BARRY MD [facility] [address] [address] 10/30/2023 11:00:35 10/30/2023 12:05:28 Nasal congestion 63008915 R09.81 Chronic [place] xillary sinusitis 36276737 J32.0 Chronic rhinitis 3313002 6 J31.0 Polyp of nasal cavity 73 1233253 J33.0 [id number] JAYSON BARRY MD [facility] [address] [place] [address] 12/08/2023 10:32:17 12/08/2023 16:44:16 Chronic sinusitis 23654424 J32.9 Parkinson's disease 4904 9000 G20.A1 Impaired cognition 20568 6002 R41.89 Health Concerns Section Related Observation LastModified by Organization Detai ls LastModified Time None Recorded Concern Status LastModified by Organization Details LastModified Time None Recorded Advance Directives Directive None Recorded Payers Encounter Date Sequence Insurance Name Policy Number Policy Vargas Covered Member ID Vargas Member ID Guarantor Name 10/30/2023 2 [place] [facility] Onur Colon [id number] Onur Colon 10/30/2023 1 MEDICARE B-[place]: [facility] [employer] Onur Colon [id number] Onur Colon 12/08/2023 2 [place] Onur Colon [id number] Onur Colon 12/08/2023 1 MEDICARE B-[place]: NATIONAL [facility] Onur Colon [id number] Onur Colon Notes Date Note Type Note [...] unfortunately did not improve his symptoms. His [id number] and son help translate for him. JAYSON ALEXANDER MD [address] [place] [address], [address], [facility] - [facility] 10/30/2023 13:04:39 12/08/2023 text/html Family notes kesha t patient feels improved following the antibiotics and nasal steroids. Previously noted to have incidental findings of polyps and hyperdense secretions.No other change in his history prior visit78 year old Egyptian speaking male with a history of dementia [...] surgery given to family JAYSON ALEXANDER MD [address] [place] [address], [place], [address], [place] - [facility] 12/08/2023 11:35:55
[2024-05-20 08:49] LABS: Anion Gap 13 (12-20); Blood Urea Nitrogen 23 mg/dL (9-16); Carbon Dioxide 23 mmol/L (22-29); Chloride 109 mmol/L (96-108); Estimated Glomerular Filt Rate > 60; Potassium 4.1 mmol/L (3.3-5.1); Sodium 141 mmol/L (135-145)
[2024-05-20 08:50] LABS: Creatinine Urine 137.26 mg/dL; Protein/Creatinine Ratio, Ur 0.08 (<0.2); Total Protein Urine Random 11 mg/dL (<12)
[2024-05-20 08:56] LABS: B Type Natriuretic Peptide 248 pg/mL (<100)
== END 2024-05-20 07:46 | disposition home or self-care (01) ==
LOC: HO.LAB 07:45
PROVIDERS: PCP Internal Medicine; Visit Provider Internal Medicine Nephrology
DX: I10 Essential (primary) hypertension (principal); N18.31 Chronic kidney disease, stage 3a; R60.0 Localized edema; N28.1 Cyst of kidney, acquired
CPT/HCPCS: 36415; 80051; 82565; 82570; 83880; 84156; 84520

== ENCOUNTER 2024-05-23 13:03 | Outpatient (AMB) | payer MEDICARE, MEDICAID, SELFPAY ==
--- NOTE | 2024-05-23 13:06 | A.OFFPC_ITS ---
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 Required: No Accompanied by: Son Allergies pravastatin Allergy (Intermediate, Verified 05/23/24 16:20) dry mouth Medication List - Last Reconciled 05/23/24 by Kalina Crisostomo PA-C acetaminophen 500 mg PO Q6H PRN [adult diapers pull-ups As directed] albuterol sulfate 90 mcg/actuation 2 puffs inhalation Q6H PRN allopurinol 200 mg (2 x 100 mg) PO DAILY 90 days atorvastatin 40 mg PO DAILY 90 days carbidopa-levodopa 25-100 mg 2 tabs PO BID 90 days cholecalciferol (vitamin D3) 25 mcg PO DAILY 90 days clonazepam 0.5 mg PO BEDTIME 30 days commode (bedside commode) As directed [compression stockings As directed] diclofenac sodium 1% (Voltaren Arthritis Pain) 2 grams topical QID PRN 30 days fenofibrate 54 mg PO DAILY 90 days fluticasone propionate 50 mcg/actuation 2 sprays intranasal DAILY furosemide (Lasix) 20 mg PO BID 90 days guaifenesin 200 mg (5 mL) PO Q4H PRN lisinopril 40 mg PO DAILY 90 days meclizine 25 mg PO TID PRN 7 days metformin ER 500 mg PO DAILY omeprazole 20 mg PO DAILY 90 days pramipexole 0.5 mg PO TID 15 days sennosides-docusate sodium 8.6-50 mg (Senna Plus) 2 tab-caps (2 x 8.6-50 mg) PO BEDTIME 60 days trazodone 50 mg PO BEDTIME underpads (Bed Underpads) Use 8 pads per day verapamil ER 120 mg PO DAILY 90 days vibegron (Gemtesa) 75 mg PO DAILY 30 days walker walker with seat and wheels Tobacco use date assessed: 04/12/24 Fall risk assessment: No Falls in past year Dental Screening Dental Screen Date: 05/23/24 Did you have a dental visit in the last 12 months?: Yes Did you have a dental problem in the last 6 months where you did not have access to dental care?: No [facility] Medical History (Updated 05/23/24 @ 16:34 by Kalina Crisostomo PA-C) CHF (congestive heart failure) Type 2 diabetes mellitus with hemoglobin A1c goal of less than 7.0% New onset type 2 diabetes mellitus CKD (chronic kidney disease) stage 2, GFR 60-89 ml/min On allopurinol therapy Prostate cancer CKD (chronic kidney disease) stage 3, GFR 30-59 ml/min Skin lesion Left knee pain Chronic pain syndrome Sacroiliac dysfunction Sacroiliitis Spondylosis without myelopathy or radiculopathy, lumbar region Adult general medical exam Screening for colon cancer Leg edema Urgency incontinence Parkinsons disease Mixed hyperlipidemia Essential hypertension GERD (gastroesophageal reflux disease) Lumbar degenerative disc disease Surgical History History of esophagogastroduodenoscopy (EGD) History of cataract surgery History of colonoscopy History of basal cell carcinoma (BCC) excision History of prostatectomy Family History Father No problems noted. Mother Diabetes Cancer Social History Household Members Other:: granddaughter Housing: Apartment Are you a primary intensive care anaesthetist to a significant other at home: No Do you presently have visiting nurse or other home services: No Alcohol intake: former Patient Tobacco Use Status: Never used Tobacco e-Cigarette/Vaping Use: Never Used Second Hand Smoke Exposure: No Advance Directives Date on File: 08/18/23 service: No Current occupational status: disabled Current occupation: lt handed Cognitive needs: Yes Hearing needs: No Vision needs: No Questionnaire PHQ-9 Over the last 2 weeks, how often have you been bothered by any of the following problems? 1. Little interest or pleasure in doing things: not at all 2. Feeling down, depressed, or hopeless: not at all 3. Trouble falling or staying asleep, or sleeping too much: more than half the days 4. Feeling tired or having little energy: not at all 5. Poor appetite or overeating: not at all 6. Feeling bad about yourself - or that you are a failure or have let yourself or your family down: not at all 7. Trouble concentrating on things, such as reading the newspaper or watching television: not at all 8. Moving or speaking so slowly that other people could have noticed. Or the opposite - being so fidgety or restless that you have been moving around a lot more than usual: not at all 9. Thoughts that you would be better off or of hurting yourself in some way: not at all Total score: 2 Depression Screening Interpretation: Positive Depression Screening Follow-up: Existing condition and Follow-up Visit Requested Depression Screening Done: Yes 82234 - PHQ-9 Billing: Yes Source: Developed by Drs. Iggy Kelly, Ivett Easley, Chinmay Gutierrez and colleagues, with an educational darryn from [employer]. Thrive Questionnaire Date Thrive assessed: 05/23/24 I am a: Patient What is your living situation today?: I have a steady place to live Within the past 12 months, did the food you bought not last and you didn't have the money to get more?: Never true Within the past 12 months, did you worry whether your food would run out before you got money to buy more?: Never true Do you have trouble paying for medicines?: No Do you have trouble getting transportation to medical appointments?: No Do you have trouble paying your heating and electricity bill?: No Do you have trouble taking care of your child, family member or friend?: No Do you have trouble with day-to-day activities such as bathing, preparing meals, shopping, managing finances, etc.?: No Are you currently unemployed and looking for a job?: No Are you interested in more education?: No Please select the resources that you would like help with: None Currently or been in a relationship where the following occur: No concerns reported THRIVE Score: 0 AUDIT C Alcohol Use Questionnaire (AUDIT-C) 1. How often do you have a drink containing alcohol?: Never 3. How often do you have six or more drinks on one occasion?: Never Total Score: 0 Score Reviewed/Action Taken: Yes (Score reviewed) DULCE-7 AMB Questionnaire DULCE-7 Date DULCE - 7 assessed: 05/23/24 Feeling nervous, anxious, or on edge: 0 = Not at all Not being able to stop or control worryin = Not at all Worrying too much about different things: 0 = Not at all Trouble relaxin = Not at all Being so restless that it is hard to sit still: 0 = Not at all Becoming easily annoyed or irritable: 0 = Not at all Feeling afraid as if something awful might happen: 0 = Not at all Total DULCE-7 score (0-4 normal; 5-9 mild; 10-14 moderate; 15-21 severe): 0 Source: Developed by Drs. Iggy Kelly, Ivett Easley, Chinmay Gutierrez and colleagues, with an educational darryn from [employer]. DULCE-7 Assessment Billing DULCE-7 Assessment Tool: DULCE-7 Assessment 92375 Physical exam (Primary Care) Vital Signs: Last Vital Signs Temp 97.7 F 05/23/24 13:08 Pulse 78 05/23/24 13:08 BP 178/88 H 05/23/24 13:15 Pulse Ox 94 05/23/24 13:08 Oxygen Delivery Method Room Air 05/23/24 13:08 Care Plan Goal for BP management: <130/80. Will increase the patient's furosemide from 20 mg to 20 mg b.i.d.. Patient to continue lisinopril 40 mg daily. Patient to continue verapamil 120 mg daily. Patient to keep a blood pressure diary over the next 2 weeks and monitor his weight and return in 2 weeks. BMI result Body Mass Index 36.8 BMI Assessment/Plan discussion: High BMI High, discussed plan: lifestyle, weight reduction, dietary, physical activity and alcohol moderation Tobacco/Smoking Status: Tobacco use Status Tobacco use date assessed 04/12/24 05/23/24 13:07 Patient Tobacco Use Status Never used Tobacco 05/23/24 13:07 e-Cigarette/Vaping Use Never Used 05/23/24 13:07 PHQ-9: PHQ-9 Score PHQ-9: Total score 2 05/23/24 13:52 Depression Screening Interpretation: Positive Depression Screening Follow-up: Existing condition and Follow-up Visit Requested Thrive Assessment: Date of Thrive Assessment Date Thrive assessed 05/23/24 05/23/24 13:18 Currently or been in a relationship where the following occur: No concerns reported Results AMB Hemoglobin A1c AMB Hemoglobin A1c 7.3 % Last Edit by KEEGAN Kyle on 05/23/24 13:5 2 Results Reviewed Results Reviewed: Laboratory Last Values Hgb A1c (Clinic) 7.3 % (4.0-6.0) H 05/23/24 13:42 Coding Level of Care Code Est Pt Level 5 (81367) Complex EM visit Add On G2211 Diagnoses Hospital discharge follow-up Z09 Primary hypertension I10 Hypertension type: primary hypertension On allopurinol therapy Z79.899 Prostate cancer C61 CKD (chronic kidney disease) stage 2, GFR 60-89 ml/min N18.2 Idiopathic chronic gout of multiple sites without tophus [id number].[id number] Gout site: multiple sites Gout etiology: idiopathic Chronicity: chronic Presence of tophus: without tophus Gastroesophageal reflux disease, unspecified whether esophagitis present K21.9 Esophagitis presence: esophagitis presence not specified Parkinson's disease with dyskinesia and fluctuating manifestations G20.B2 Dyskinesia presence: with dyskinesia Fluctuating manifestations: with fluctuating manifestations New onset type 2 diabetes mellitus E11.9 Type 2 diabetes mellitus with hemoglobin A1c goal of less than 7.0% E11.9 CHF (congestive heart failure) I50.9 Additional Codes PHQ-9 - 64807 - PHQ-9 Billing: Yes ([id number]) DULCE-7 Assessment Billing - DULCE-7 Assessment Tool: DULCE-7 Assessment [id number] ([id number]) Assessment & Plan Assessment & Plan (1) Hospital discharge follow-up: Code(s): Z09 - Encounter for follow-up examination after completed treatment for conditions other than malignant neoplasm Category: Medical (2) Hypertension: Code(s): I10 - Essential (primary) hypertension Category: Medical Qualifiers: Hypertension type: primary hypertension Qualified Code(s): I10 - Essential (primary) hypertension Plan: Go less than 130/80. Patient to continue lisinopril 40 mg daily. Patient to continue verapamil 120 mg daily. Patient to continue furosemide although will increased from 20 mg daily to 20 mg b.i.d.. Patient to monitor his blood pressure and weights daily for the next 2 weeks and return in 2 weeks with blood pressure and weight diarrhea. Patient to follow up with Nephrology tomorrow. Condition is chronic and stable continue to monitor. (3) On allopurinol therapy: Code(s): Z79.899 - Other residential (current) drug therapy Category: Medical Plan: For the patient's gout. Patient was recently prescribed colchicine 0.6 mg x 7 days which he has completely finish from [facility] from his prior admission. Condition is chronic and stable continue to monitor. (4) Prostate cancer: Code(s): C61 - Malignant neoplasm of prostate Category: Medical Plan: Condition is chronic and stable continue to monitor. (5) CKD (chronic kidney disease) stage 2, GFR 60-89 ml/min: Code(s): N18.2 - Chronic kidney disease, stage 2 (mild) Category: Medical Plan: Patient being followed by Nephrology. BUN and creatinine at [facility] on 05/16/2027 were 1.15 with GFR of 66. BUN of 35. Condition is chronic and stable continue to monitor (6) Gout: Comment: abrupt onset of multiple painful and swollen joints including his elbows and wrists. multiple attacks over 1-2 months Initial uric acid level 8.2 07/10 Allopurinol 200 mg 07/10 colchicine DC 12/2022 Code(s): M10.9 - Gout, unspecified Category: Medical Qualifiers: Gout site: multiple sites Gout etiology: idiopathic Chronicity: chronic Presence of tophus: without tophus Qualified Code(s): M1A.09X0 - Idiopathic chronic gout, multiple sites, without tophus (tophi) (7) GERD (gastroesophageal reflux disease): Code(s): K21.9 - Gastro-esophageal reflux disease without esophagitis Category: Medical Qualifiers: Esophagitis presence: esophagitis presence not specified Qualified Code(s): K21.9 - Gastro-esophageal reflux disease without esophagitis Plan: Patient to continue omeprazole 20 mg daily. Condition is chronic and stable continue to monitor. (8) Parkinsons disease: Code(s): G20 - Parkinson's disease Category: Medical Qualifiers: Dyskinesia presence: with dyskinesia Fluctuating manifestations: with fluctuating manifestations Qualified Code(s): G20.B2 - Parkinson's disease with dyskinesia, with fluctuations Plan: Patient to continue carbidopa levodopa 25-100 mg 2 tablets 3 times a day. Condition is chronic and stable continue to monitor (9) New onset type 2 diabetes mellitus: Code(s): E11.9 - Type 2 diabetes mellitus without complications Category: Medical Plan: Patient with new onset of diabetes A1c level go less than 7.0. A1c level today is 7.3. Patient will be started on metformin 500 mg daily. Condition is chronic and stable continue to monitor. (10) Type 2 diabetes mellitus with hemoglobin A1c goal of less than 7.0%: Code(s): E11.9 - Type 2 diabetes mellitus without complications Category: Medical Plan: Patient with new onset of diabetes A1c level go less than 7.0. A1c level today is 7.3. Patient will be started on metformin 500 mg daily. Condition is chronic and stable continue to monitor. (11) CHF (congestive heart failure): Code(s): I50.9 - Heart failure, unspecified Category: Medical Plan: Patient with pitting edema. No calf tenderness is noted. No cellulitis noted to bilateral lower extremities. Denies chest pain or shortness of breath, dyspnea on exertion orthopnea. Will increase furosemide from 20 mg daily to 20 mg b.i.d.. Patient to follow up with Nephrology tomorrow they may change this treatment regimen although [facility] Condition is chronic and stable continue to monitor. Plan Plan The primary focus is to manage the bilateral leg edema potentially caused by Amlodipine. The management strategy includes modifying antihypertensive treatment while maintaining appropriate diuretic therapy with Furosemide to mitigate fluid overload due to CHF. Home monitoring directives emphasize regular weight checks and blood pressure monitoring. Start diabetes mellitus treatment with Metformin and GERD treatment with Omeprazole is planned to be continued. Coordination with nephrology for further evaluation of renal function and medication management is critical. Education on the documentation of daily weight and blood pressure is provided to assess treatment efficacy and guide further clinical decision-making. Orders: Orders AMB Hemoglobin A1c Today Z13.1 - Encounter for screening for diabetes mellitus Medications: New metformin ER 500 mg PO DAILY 90 tabs 1RF furosemide (Lasix) 20 mg PO BID 90 days 180 tabs 0RF lancing device with lancets (Accu-Chek FastClix Lancing Device kit) As directed 1 ea 0RF E11.9 - Type 2 diabetes mellitus without complications trazodone 50 mg PO BEDTIME 90 tabs 1RF lancets (Accu-Chek Fastclix Lancet Drum) As directed 200 ea 0RF E11.9 - Type 2 diabetes mellitus without complications blood-glucose meter (Accu-Chek Guide Glucose Meter) As directed 1 ea 0RF blood sugar diagnostic (Accu-Chek Guide test strips) As directed 100 ea 0RF E11.9 - Type 2 diabetes mellitus without complications Refilled omeprazole 20 mg PO DAILY 90 days 90 caps 3RF K21.9 - Gastro-esophageal reflux disease without esophagitis Patient Instructions: Patient Instructions - Take Furosemide as prescribed ? 20 mg in the morning and 20 mg in the evening. - Monitor and record your weight daily. - Monitor and record your blood pressure daily. - Follow up with nephrology as scheduled for ongoing assessment of kidney function and potential medication adjustments. - Continue Metformin and Omeprazole as prescribed. - Report any increase in swelling, shortness of breath, or other unusual symptoms to your healthcare provider immediately. - Ensure you maintain a low-sodium diet to assist with fluid management. Scribe Plan - Not visible on output: History of Present Illness The patient is a 78-year-old male presenting with bilateral leg edema, a condition he noticed approximately three weeks ago, leading to his visit to the ED where it was evaluated. The edema appears to be potentially related to his current antihypertensive medication, Amlodipine, known for causing leg edema as an adverse effect. Diuretic therapy with Torsemide was initiated by a stoner hand to manage the edema, which was later substituted with Furosemide to aid in the management of mild congestive heart failure symptoms. When patient went to [facility] on 05/16/2024 he was discontinued from the furosemide and continued on furosemide 20 mg. While he at [facility] he was noted to have high glucose levels therefore they obtain a A1c level which was 7 point 2. They gave him IV insulin although they did not discharge him with any diabetes medication regimen. While he was also at [facility] they obtain an ultrasound of bilateral lower extremity which was negative for DVTs. He also had an EKG which was normal sinus rhythm with a heart rate of 80 with slightly prolonged QTC at [address] changes. His CBC with no signs of anemia or thrombocytopenia. BNP with no electrolyte abnormality or signs of acute kidney injury. Initial troponin was 26. Repeat troponin trended down at 23. Patient denied any chest pain while he was at [facility]. They obtain a chest x-ray which revealed cardiac enlargement and mild pulmonary edema without effusions. Findings are consistent with mild CHF/fluid overload. BNP level at [facility] was 376. Which was reassuring. Patient is currently being followed by Nephrology. He has an appointment tomorrow with Nephrology due to his kidney function that are being tracked with Nephrology due to elevated BUN levels. Creatinine levels appear to be within normal limits. Patient has a history of gout that he is currently on allopurinol. [facility] placed in arm colchicine 0.6 mg daily for 7 days which he has completely at this time. Patient is currently on atorvastatin 40 mg for his cholesterol. Patient currently on carbidopa levodopa 25-100 2 tablets 3 times a day. Patient currently on clonazepam 0.5 mg for insomnia. Son and [id number] at bedside report that he only sleeps a few hours and they were requesting increased. I explained to them that this can cause memory loss therefore will add trazodone 50 mg for bedtime for insomnia. Patient currently on meclizine for dizziness. Patient currently on omeprazole for GERD. Patient also on verapamil 120 mg for hypertension. Patient is currently residing at home with his . His son is his main block machine operator/PUBLIC HEALTH ADMINISTRATOR. Patient has wheeled walker for ambulation. Social History - No specific social determinants of health were discussed during the conversation. Review of Systems - Cardiovascular: Reports bilateral leg edema; denies chest pain. - Gastrointestinal: Denies abdominal pain. - Respiratory: No respiratory complaints noted. Physical Exam Appearance: Alert. Oriented X3. No acute distress. Head: Normal external exam. Normocephalic. Atraumatic. Eyes: Pupils are equal, round, and reactive to light. Extraocular movements intact. Conjunctiva and sclera normal. Eyelids normal. Ears: External auditory canal normal. Tympanic membranes normal. Throat: Pharynx normal. Uvula midline. Moist mucous membranes. Neck: Normal inspection. Neck supple. Full range of motion. No adenopathy. Thyroid Normal. No meningeal signs. No neck mass noted. Cardiovascular: Normal heart rate and rhythm. Heart sound normal. No murmurs noted. Pulses normal throughout. Respiratory: No respiratory distress. Painless inspiration. Breath sounds normal. No wheezes/rales/rhonchi noted. Chest nontender. No accessory muscle usage noted or decreased air movement noted. Abdomen: Soft and nontender. Bowel sounds normal in all 4 quadrants. No distention noted. No organomegaly noted. No visible injury noted. Back: No costovertebral angle tenderness. Full range of motion noted. Skin: Skin warm and dry. Normal skin color. Normal skin turgor. No rashes/lesions/lacerations noted. Extremities: Bilateral leg swelling noted. Extremities exhibit normal range of motion. Extremities nontender. Tremor noted to right hand. There is no calf tenderness noted. Neuro: Oriented X 3. No motor deficit. No sensory deficit. Reflexes normal. Results - Labs: Normal creatinine level at 1.15 mg/dL. Plan The primary focus is to manage the bilateral leg edema potentially caused by Amlodipine. The management strategy includes modifying antihypertensive treatment while maintaining appropriate diuretic therapy with Furosemide to mitigate fluid overload due to CHF. Home monitoring directives emphasize regular weight checks and blood pressure monitoring. Start diabetes mellitus treatment with Metformin and GERD treatment with Omeprazole is planned to be continued. Coordination with nephrology for further evaluation of renal function and medication management is critical. Education on the documentation of daily weight and blood pressure is provided to assess treatment efficacy and guide further clinical decision-making. Patient was informed and verbally consented to the use of an ambient scribe for clinic note documentation during this visit. Discussion Notes During this visit, we discussed the suspected contribution of Amlodipine to the patient?s leg edema and explored adjustments in his medication regimen. The necessity of frequent weight and blood pressure monitoring was emphasized to the patient and his caregivers to aid in evaluating the effectiveness of the current diuretic therapy. I explained the importance of nephrology follow-up to closely monitor kidney function and the possibility of medication adjustment, such as potentially discontinuing Lisinopril. The risks and benefits of the diuretic therapy and the management goals for his heart failure and hypertension were extensively reviewed. Follow-up visits and the importance of documenting vital signs at home for ongoing observation were also thoroughly explained as part of his care plan. Patient Instructions - Take Furosemide as prescribed ? 20 mg in the morning and 20 mg in the evening. - Monitor and record your weight daily. - Monitor and record your blood pressure daily. - Follow up with nephrology as scheduled for ongoing assessment of kidney function and potential medication adjustments. - Continue Metformin and Omeprazole as prescribed. - Report any increase in swelling, shortness of breath, or other unusual s ymptoms to your healthcare provider immediately. - Ensure you maintain a low-sodium diet to assist with fluid management.
[2024-05-23 13:08] VITALS: BP 180/90; PULSE 78; TEMP 36.5; O2SAT 94; BMI 36.8
[2024-05-23 13:15] VITALS: BP 178/88
--- OUTSIDE RECORDS SUMMARY | 2024-05-23 15:47 | XMS_ITS | Data Portability ---
Author Organization [place] - [facility], Allergy Address [address] [place] [address] Assessment Encounter Date Assessment Date Assessment LastModified by Organization Details LastModified Time 10/30/2023 10/30/2023 78 year old Mosotho speaking male with a history of dementia [...] contra st 2023 024 [email or web address] [facility], [address] [place] [address], [phone], 4 11:35:27 CT, maxill ofacia l, w/o contra st 2023 024 [email or web address] [facility], [address] [place] [address], [phone], 4 10:11:43 Medication Orders doxycy maciel hyclat e 100 mg tablet 2023 [facility], [address] [place] [address], [id number], 4 10:36:41 flutic asone propio mynor 50 mcg/ac tuatio n nasal spray, suspen padmini 2023 [facility], [address] [place] [address], [id number], 4 14:57:14 Patient TargetsNo targets recorded. Patient InstructionsNo instructions recorded. Reason for Referral None Reported. Results Created Date Observation Date Name Description Value Unit Range Abnormal Flag Note LastModifiedBy Organization Detail LastModifiedTime 12/08/[address], sinus es, w/o contr ast No observ ation record ed. [email or web address] [facility] [address], [address], 12/08/2023 11:35:24 Result Notes None recorded. Problems Name Problem SNOMED Code Status Onset Date Resolution Date Notes Provider Name and Address Organization Details Recorded Time Nasal congestion 00149117 Active JAYSON SHIELDS MD [address] [place] [address], [phone], [facility] - [facility] 4 11:58:59 Chronic maxillary sinusitis 97546217 Active JAYSON SHIELDS MD [address] [facility], [place], [address], [place] - [facility] 4 12:00:46 Chronic rhinitis 77998430 Active 024 JAYSON SHIELDS MD [address] [facility], [place], [address], [place] - [facility] 4 12:01:02 Chronic sinusitis 56821963 Active 024 JAYSON SHIELDS MD [address] [facility], [place], [address], [place] - [facility] 4 12:01:02 Polyp of nasal cavity 105613052 Active 024 JAYSON SHIELDS MD [address] [facility], [place], [address], [place] - [facility] 4 13:04:18 Parkinson's disease 70453819 Active 024 JAYSON SHIELDS MD [address] [facility], [place], [address], [place] - [facility] 4 11:34:00 Impaired cognition 361380393 Active 024 JAYSON SHIELDS MD [address] [facility], [place], [address], [place] [facility] 4 11:34:12 Problem Notes None recorded. Procedures Surgical History Date Name Laterality Status Provider Name and Address Organization Details Recorded Time 4 JMSNasal/Sinus Endoscopy completed JAYSON ALEXANDER MD [address], [address], [place] - [facility] 10/30/2023 12:04:04 Cataract Surgery completed Deny Blanca [place] - [facility] 10/30/2023 11:20:20 excision of basal cell carcinoma completed Deny Blanca [place] [facility] 10/30/2023 11:20:58 Imaging Results Imaging Date Name Status LastModified by Organiz ation Details LastModified Time 12/08/2023 CT, sinuses, w/o contrast completed [email or web address] [facility] [address], [place], [address], 12/08/2023 11:35:24 Procedure Notes None recorded. Medical [...] Updated DateTime 10/30/2023 172.72 cm 32.8 kg/m2 94021.95 g Deny Blanca [place] - [facility] 10/30/2023 11:37:14 Social History None recorded. Functional Status None recorded. Mental Status None recorded. Family History Nothing Reported. Medical History No medical history recorded. Past Encounters Encounter ID Performer Location Encounter Start Date Encounter Closed Date Diagnosis/Indication Diagnosis SNOMED-CT Code Diagnosis ICD10 Code Diagnosis Note [id number] JAYSON BARRY MD [facility] [address] [address] 10/30/2023 11:00:35 10/30/2023 12:05:28 Nasal congestion 30746098 R09.81 Chronic [place] xillary sinusitis 68221097 J32.0 Chronic rhinitis 8969175 6 J31.0 Polyp of nasal cavity 73 4467483 J33.0 [id number] JAYSON BARRY MD [facility] [address] [place] [address] 12/08/2023 10:32:17 12/08/2023 16:44:16 Chronic sinusitis 45332400 J32.9 Parkinson's disease 4904 9000 G20.A1 Impaired cognition 83473 6002 R41.89 Health Concerns Section Related Observation LastModified by Organization Detai ls LastModified Time None Recorded Concern Status LastModified by Organization Details LastModified Time None Recorded Advance Directives Directive None Recorded Payers Encounter Date Sequence Insurance Name Policy Number Policy Vargas Covered Member ID Vargas Member ID Guarantor Name 10/30/2023 2 [place] Onur Colon [id number] Onur Colon 10/30/2023 1 MEDICARE B-[place]: [facility] [employer] Onur Colon [id number] Onur Colon 12/08/2023 2 [place] Onur Colon [id number] Onur Colon 12/08/2023 1 [place]IC[place] B-[place] [employer] Onur Colon [id number] Onur Colon Notes Date Note Type Note [...] unfortunately did not improve his symptoms. His ftlhdzmh-bd-str and son help translate for him. JAYSON ALEXANDER MD [address], [address], [place] - [facility] 10/30/2023 13:04:39 12/08/2023 text/html Family notes kesha t patient feels improved following the antibiotics and nasal steroids. Previously noted to have incidental findings of polyps and hyperdense secretions.No other change in his history prior visit78 year old Mosotho speaking male with a history of dementia [...] surgery given to family JAYSON ALEXANDER MD [address] [place] [address],[place] [address], [place], [address], [facility] - [facility] 12/08/2023 11:35:55
--- OUTSIDE RECORDS SUMMARY | 2024-05-23 15:47 | XMS_ITS | Clinical Summary ---
Author Organization [facility] Facility Address [address] [place] [address] Care Team Providers Care Human Resource Intern Name Role Phone Susy Sylvester MD Primary Care Provider [phone] Allergies No known active allergies Medications trihexyphenidyl [...] age to complete this topic Insurance [address] [place] [address] [place] Care Teams Human Resource Intern Relationship Specialty Start Date End Date Susy Sylvester MD [address] [place], [place] PCP - General Internal Medicine 03/31/22
--- OUTSIDE RECORDS SUMMARY | 2024-05-23 15:47 | XMS_ITS | Encounter Summary ---
Author Organization [employer] [facility] Address [address] [place] [address] Care Team Providers Care Director Emergency Services Name Role Phone Rochelle Mckeon MD Primary Care Provider Un available Community, Pcp Primary Care Provider Unavailabl e Encounter Details Date Type Department Care Team Description 03/07/2017 Assistant Facility Manager Report Medical Records [address] [place] [address] Kelvin Jacob MD Social History Tobacco Use [...] on filedocumented in this encounter Care Teams Director Emergency Services Relationship Specialty Start Date End Date Rochelle Mckeon MD PCP - General Internal Medicine 10/10/1603/01 Community, Pcp PCP - General Internal Medicine 03/02/21 documented as of this encounter
--- OUTSIDE RECORDS SUMMARY | 2024-05-23 15:47 | XMS_ITS | Encounter Summary ---
Author Organization [employer] [facility] Address [address] [place] [address] Care Team Providers Care Panel Assembler Name Role Phone Rochelle Mckeon MD Primary Care Provider Un available Community, Pcp Primary Care Provider Unavailabl e Encounter Details Date Type Department Care Team Description 09/12/2017 Air Gun Operator Report Medical Records [address] [place] [address] Kelvin Jacob MD Social History Tobacco Use [...] on filedocumented in this encounter Care Teams Panel Assembler Relationship Specialty Start Date End Date Rochelle Mckeon MD PCP - General Internal Medicine 10/10/1603/01 Community, Pcp PCP - General Internal Medicine 03/02/21 documented as of this encounter
--- OUTSIDE RECORDS SUMMARY | 2024-05-23 15:47 | XMS_ITS | Encounter Summary ---
Author Organization [facility] Address [address] [place] [address] Care Team Providers Care Program Lead Name Role Phone Rochelle Mckeon MD Primary Care Provider Un available Community, Pcp Primary Care Provider Unavailabl e Encounter Details Date Type Department Care Team Description 09/27/2018 Point Of Sale Associate Report Medical Records [address] [place] [address] Kelvin Jacob MD Social History Tobacco Use [...] on filedocumented in this encounter Care Teams Program Lead Relationship Specialty Start Date End Date Rochelle Mckeon MD PCP - General Internal Medicine 10/10/1603/01 Community, Pcp PCP - General Internal Medicine 03/02/21 documented as of this encounter
--- OUTSIDE RECORDS SUMMARY | 2024-05-23 15:47 | XMS_ITS | Encounter Summary ---
Author Organization [facility] [facility] Address [address] [place] [address] Care Team Providers Care Medication Assistant Name Role Phone Rochelle Mckeon MD Primary Care Provider Un available Community, Pcp Primary Care Provider Unavailabl e Encounter Details Date Type Department Care Team Description 05/08/2019 Seam Finisher Report Medical Records [address] [place] [address] Kelvin Jacob MD Social History Tobacco Use [...] on filedocumented in this encounter Care Teams Medication Assistant Relationship Specialty Start Date End Date Rochelle Mckeon MD PCP - General Internal Medicine 10/10/1603/01 Community, Pcp PCP - General Internal Medicine 03/02/21 documented as of this encounter
--- OUTSIDE RECORDS SUMMARY | 2024-05-23 15:48 | XMS_ITS | Referral Summary ---
Author Organization [facility] Address [address] [place] [address] Care Team Providers Care Senior Director Creative Services Name Role Phone Mika ArthurteiSusy Primary Care Provider [phone] Allergies No known active allergies Medications meclizine [...] Description 06/05/2024 1:00 PM EDT Office Visit [facility] [address] [place] [address] Cristhian Ruff DO [address] [place] [address] [place] [id number] [facility] MEDICARE Care Teams Senior Director Creative Services Relationship Specialty Start Date End Date Susy Sylvester [address] [place] [address] [place] [address] PCP - General Internal Medicine 06/14/23
--- OUTSIDE RECORDS SUMMARY | 2024-05-23 15:48 | XMS_ITS | Encounter Summary ---
Author Organization [facility] Address [address] [place] [address] Care Team Providers Care Fit Model Name Role Phone Susy Sylvester Primary Care Provider [phone] Encounter Details Date Type Department Care Team (Late st Contact Info) Description 12/21/2023 Orders Only [facility] Nuclear Medicine [address] [place] [address] Jake Angulo MD PhD [address] [place] [address] Social History Tobacco Use Types Packs/Day Years [...] Description 06/05/2024 1:00 PM EDT Office Visit [facility] [address] [place] [address] Cristhian Ruff DO [address] [place] [address] documented as of this encounter Visit Diagnoses Not on filedocumented in this encounter Care Teams Fit Model Relationship Specialty Start Date End Date Susy Sylvester [address] [place] [address] dr Oscar [place], [place] [address] PCP - General Internal Medicine 06/14/23 documented as of this encounter
--- OUTSIDE RECORDS SUMMARY | 2024-05-23 15:48 | XMS_ITS | Data Portability ---
Author Organization [facility], [address] Address [address] [place] [address] Care Team Providers Care Independent Living Specialist Name Role Phone [facility] Primary Care Provider Assessment No assessment recorded. Plan of Treatment Reminders Order Date Submit Date Provider Last Modified By Organization Details Last Modified Time Details Appointments None record ed. Lab None record ed. Referral None record ed. Procedures None record ed. Surgeries None record ed. Imaging XR, elbow, 3 or more view 023 03/27/19 [facility], [address] [place], [address], 17:46:19 XR, wrist, 3 or more view 023 03/27/19 [facility], [address] [place], [address], 3 17:45:16 Medication Orders None record ed. Patient TargetsNo targets recorded. Patient InstructionsNo instructions recorded. Reason for Referral None Reported. Results Created Date Observation Date Name Description Value Unit Range Abnormal Flag Note LastModifiedBy Organization Detail LastModifiedTime 03/27/19 23 03/27/2022 XR, wrist , 3 or more view No observ ation record ed. [email or web address] 1 [facility] [address] [place], [address], 03/27/2022 17:56:06 03/27/19 23 03/27/2022 XR, elbow , 3 or more view No observ ation record ed. [email or web address] 1 [facility] [address] [place], [address], 03/27/2022 17:56:07 Result Notes None recorded. Problems Name Problem SNOMED Code Status Onset Date Resolution Date Notes Provider Name and Address Organization Details Recorded Time Hypercholestero lemia 05440235 Active 2022 LES VERENICE null, [place] - [facility] 3 15:46:31 Hypertensive disorder 59967492 Active 2022 LES VERENICE null, [place] - [facility] 3 15:46:39 Parkinson's disease 17845579 Active 2022 LES VERENICE null, [place] - [...] completed [email or web address] [facility] [address] [place], [address], 03/27/2022 17:56:06 03/27/2022 XR, elbow, 3 or more view completed [email or web address] [facility] [address] [place], [address], 03/27/2022 17:56:07 Procedure Notes None recorded. Medical [...] Updated DateTime 3 172.72 cm 34.7 kg/m2 418130. 06 g 8 98 % 98 % [...] SNOMED-CT Code Diagnosis ICD10 Code Diagnosis Note [id number] BELLO ROONEY [address] [address] 03/27/2022 15:10:11 03/27/2022 17:36:55 Pain of left wrist 1908967546 56296 M25.532 No acute fracture of the wrist [...] week. Pain of le ft elbow joint 3409074013 8713003 M25.522 No acute fracture of the elbow noted on x-ray. Please follow up with primary care doctor to manage this and/or continue further workup if symptoms are not improving with conservati ve measures over the next week. You may take Tylenol for pain, ice, rest and keep it elevated. Osteoarthr itis of wrist 243709346 M19.039 Health Concerns Section Related Observation LastModified by Organization Detai ls LastModified Time None Recorded Concern Status LastModified by Organization Details LastModified Time None Recorded Advance Directives Directive None Recorded Payers Encounter Date Sequence Insurance Name Policy Number Policy Vargas Covered Member ID Vargas Member ID Guarantor Name 03/27/2022 1 [place] B[place] [employer] Onur Colon [id number] Onur Colon 03/27/2022 2 MEDICAID-[place]: [facility] Onur Colon [id number] Onur Colon Notes Date Note Type Note Provider Name and Address Organization Details Recorded Time 03/27/2022 text/html Onur is a 76 yo left handed male M with PMH of HTN, HLD, parkinson's, GERD, here for left hand swelling that radiates up to forearm x 4 days. Here with dixie who is assisting in translation of kosovan. She notes he has been avoiding using [...] Ramos, BELLO [address] [place], [address], [place] - [facility] 03/27/2022 17:32:52
--- OUTSIDE RECORDS SUMMARY | 2024-05-23 15:48 | XMS_ITS | Clinical Summary ---
Author Organization [facility] Address [address] [place] [address] Care Team Providers Care Vegetable Scullion Name Role Phone Susy Sylvester Primary Care Provider [phone] Allergies No known active allergies Medications meclizine [...] Description 06/05/2024 1:00 PM EDT Office Visit [facility] Clinic [address] [place] [address] Cristhian Ruff DO [address] [place] [address] Health Maintenance Due Date Last Done Comments Hepatitis C Screening 1945 Medicare AWV 06/01/1946 Pneumococcal Vaccine: 50+ Years (1 of 1 [...] patient's age to complete this topic Insurance [facility] MEDICARE Care Teams Vegetable Scullion Relationship Specialty Start Date End Date Susy Sylvester [address] [place] [address] dr Oscar [place], [place] [address] PCP - General Internal Medicine 06/14/23
== END 2024-05-23 14:02 | disposition home or self-care (01) ==
PROVIDERS: PCP Internal Medicine; Visit Provider Physician Assistant Medical
DX: Z13.1 Encounter for screening for diabetes mellitus (principal)

== ENCOUNTER → 2024-05-23 13:03 | Outpatient (BNVA) | payer MEDICARE, MEDICAID, SELFPAY | PROVIDERS: PCP Internal Medicine; Visit Provider Physician Assistant Medical | DX: Z09 Encounter for follow-up examination after completed treatment for conditions other than malignant neoplasm (principal); I13.0 Hypertensive heart and chronic kidney disease with heart failure and stage 1 through stage 4 chronic kidney disease, or unspecified chronic kidney disease; E11.22 Type 2 diabetes mellitus with diabetic chronic kidney disease; N18.2 Chronic kidney disease, stage 2 (mild); I50.9 Heart failure, unspecified; C61 Malignant neoplasm of prostate; M1A.09X0 Idiopathic chronic gout, multiple sites, without tophus (tophi); K21.9 Gastro-esophageal reflux disease without esophagitis; G20.B2 Parkinson's disease with dyskinesia, with fluctuations; Z79.899 Other long term (current) drug therapy | CPT/HCPCS: 83036; 96127; 99212 ==

== ENCOUNTER 2024-05-24 11:10 | Outpatient (AMB) | payer MEDICARE, MEDICAID, SELFPAY ==
--- NOTE | 2024-05-24 11:57 | HO.NEPHOV_ITS ---
Vital Signs 05/24/24 12:02 Height 5 ft 8 in Weight 246 lb 2 oz BMI 37.4 BP 112/60 Blood Pressure Location Rt brachial Position Sitting Pulse 68 Pulse Source Pulse Oximeter Pulse Oximetry (%) 96 Oxygen Delivery Method Room Air Intake Visit Reasons: CKD-Conf Reinsurance Claims Analyst Required: Yes Reinsurance Claims Analyst Language: Bridge Game Director Services: Reinsurance Claims Analyst Present Reinsurance Claims Analyst Name: Lux [id number] Accompanied by: Son Allergies pravastatin Allergy (Intermediate, Verified 05/24/24 12:02) dry mouth HPI Comments Details: 78 year old male patient was seen in the office today CKD, hypertension and edema. He is accompanied by Son . He is known to have CKD for some time. He also has Parkinsons disease, HTN, Prostate CA as well as OAB. He is currently taking Gemtesa for OAB and follows with Urology for Prostate CA. He is not known to have significant proteinuria. He is on verapamil. He denies any CAD, CHF, CVA, PAD or OG. His serum creatinine is stable. He recently had [place] [facility] [place] [facility] Medical History (Updated 05/23/24 @ 16:34 by Kalina Crisostomo PA-C) CHF (congestive heart failure) Type 2 diabetes mellitus with hemoglobin A1c goal of less than 7.0% New onset type 2 diabetes mellitus CKD (chronic kidney disease) stage 2, GFR 60-89 ml/min On allopurinol therapy Prostate cancer CKD (chronic kidney disease) stage 3, GFR 30-59 ml/min Skin lesion Left knee pain Chronic pain syndrome Sacroiliac dysfunction Sacroiliitis Spondylosis without myelopathy or radiculopathy, lumbar region Adult general medical exam Screening for colon cancer Leg edema Urgency incontinence Parkinsons disease Mixed hyperlipidemia Essential hypertension GERD (gastroesophageal reflux disease) Lumbar degenerative disc disease Surgical History History of esophagogastroduodenoscopy (EGD) History of cataract surgery History of colonoscopy History of basal cell carcinoma (BCC) excision History of prostatectomy Family History Father No problems noted. Mother Diabetes Cancer Social History Household Members Other:: granddaughter Housing: Apartment Are you a primary career portals teacher to a significant other at home: No Do you presently have visiting nurse or other home services: No Alcohol intake: former Patient Tobacco Use Status: Never used Tobacco e-Cigarette/Vaping Use: Never Used Second Hand Smoke Exposure: No Advance Directives Date on File: 08/18/23 service: No Current occupational status: disabled Current occupation: lt handed Cognitive needs: Yes Hearing needs: No Vision needs: No Review of Systems Const All systems reviewed & are unremarkable except as noted in HPI and below Physical Exam Vital Signs: Last Vital Signs Pulse 68 05/24/24 12:02 BP 112/60 05/24/24 12:02 Pulse Ox 96 05/24/24 12:02 Oxygen Delivery Method Room Air 05/24/24 12:02 BMI result Body Mass Index 37.4 Const General: comfortable and no acute distress Orientation/consciousness: patient oriented x3 HEENT Head: Yes normocephalic Mouth: Normal oral and palatal mucosa present Eyes EOM: EOMs intact bilaterally Neck Neck: Yes supple Resp Auscultation: clear to auscultation bilaterally Cardio Jugular venous distension: no JVD Rate: regular rate Heart sounds: Murmur heart sound present GI Palpation (GI): Soft to palpation Auscultation: normal bowel sounds Skin General skin exam: no rashes or lesions noted Neuro General: patient oriented x3 and moves all extremities Results Reviewed Nephrology Results: Sodium 141 mmol/L (135-145) 05/20/24 Potassium 4.1 mmol/L (3.3-5.1) 05/20/24 Chloride 109 mmol/L (96-108) H 05/20/24 Carbon Dioxide 23 mmol/L (22-29) 05/20/24 BUN 23 mg/dL (9-16) H 05/20/24 Creatinine 1.01 mg/dL (0.5-1.4) 05/20/24 Urine Creatinine 137.26 mg/dL 05/20/24 Protein/Creatinin Ratio 0.08 (<0.2) 05/20/24 Assessment & Plan Assessment & Plan (1) Hypertension: Code(s): I10 - Essential (primary) hypertension Category: Medical Qualifiers: Hypertension type: primary hypertension Qualified Code(s): I10 - Essential (primary) hypertension (2) Renal cyst: Code(s): N28.1 - Cyst of kidney, acquired Category: Medical (3) CKD stage 3a, GFR 45-59 ml/min: Code(s): N18.31 - Chronic kidney disease, stage 3a Category: Medical Plan Has CKD 3 likely from vascular disease. He likely will need sleep study His urine protein is negative . He has edema. He needfs vascular study. He is tolerating ACEI. Minimize PO Na. Avoid NSAID's. His urine output is good. He should avoid NSAID's. I did not make any medication changes today. Follow up blood work ordered. Answered all questions Orders: Orders Creatinine 4 Months I10 - Essential (primary) hypertension, N18.31 - Chronic kidney disease, stage 3a Blood Urea Nitrogen 4 Months I10 - Essential (primary) hypertension, N18.31 - Chronic kidney disease, stage 3a Electrolytes 4 Months I10 - Essential (primary) hypertension, N18.31 - Chronic kidney disease, stage 3a Medications: Refilled albuterol sulfate 90 mcg/actuation 2 puffs inhalation Q6H PRN 8.5 grams 0RF shortness of breath or wheezing Coding Level of Care Code Est Pt Level 4 (94757) Diagnoses Primary hypertension I10 Hypertension type: primary hypertension Renal cyst N28.1 CKD stage 3a, GFR 45-59 ml/min N18.31
[2024-05-24 12:02] VITALS: BP 112/60; PULSE 68; O2SAT 96; BMI 37.4
--- OUTSIDE RECORDS SUMMARY | 2024-05-24 12:58 | XMS_ITS | Clinical Summary ---
Author Organization [facility] Facility Address [address] [place] [address] Care Team Providers Care Bmw Service Technician Name Role Phone Susy Sylvester MD Primary Care Provider [phone] Allergies No known active allergies Medications trihexyphenidyl [...] age to complete this topic Insurance [address] [place] [address] [place] Care Teams Bmw Service Technician Relationship Specialty Start Date End Date Susy Sylvester MD [address] [place], [place] PCP - General Internal Medicine 03/31/22
--- OUTSIDE RECORDS SUMMARY | 2024-05-24 12:58 | XMS_ITS | Clinical Summary ---
Author Organization [facility] Address [address] [place] [address] Care Team Providers Care Line Patrolman Name Role Phone Susy Sylvester Primary Care Provider [phone] Allergies No known active allergies Medications meclizine [...] Description 06/05/2024 1:00 PM EDT Office Visit [facility] Clinic [address] [place] [address] Cristhian Ruff DO [address] [place] [address] Health Maintenance Due Date Last Done Comments [...] patient's age to complete this topic Insurance [facility] MEDICARE Care Teams Line Patrolman Relationship Specialty Start Date End Date Susy Sylvester [address] [place] [address] dr Oscar [place], [place] [address] PCP - General Internal Medicine 06/14/23
--- OUTSIDE RECORDS SUMMARY | 2024-05-24 12:58 | XMS_ITS | Encounter Summary ---
Author Organization [facility] Address [address] [place] [address] Care Team Providers Care Staff Midwife/Apprenticeship Director Name Role Phone Susy Sylvester Primary Care Provider [phone] Encounter Details Date Type Department Care Team (Late st Contact Info) Description 12/21/2023 Orders Only [facility] Nuclear Medicine [address] [place] [address] Jake Angulo MD PhD [address] [place] [address] Social History Tobacco Use Types Packs/Day Years [...] Description 06/05/2024 1:00 PM EDT Office Visit [facility] [address] [place] [address] Cristhian Ruff DO [address] [place] [address] documented as of this encounter Visit Diagnoses Not on filedocumented in this encounter Care Teams Staff Midwife/Apprenticeship Director Relationship Specialty Start Date End Date Susy Sylvester [address] [place] [address] dr [place] Moore, BARI [address] PCP - General Internal Medicine 06/14/23 documented as of this encounter
--- OUTSIDE RECORDS SUMMARY | 2024-05-24 12:58 | XMS_ITS | Referral Summary ---
Author Organization [facility] Address [address] [place] [address] Care Team Providers Care Salon Leader Name Role Phone Mika ArthurteSusy devine Primary Care Provider [phone] Allergies No known active allergies Medications meclizine [...] Description 06/05/2024 1:00 PM EDT Office Visit [facility] [address] [place] [address] Cristhian Ruff DO [address] [place] [address] [place] [address] [facility] MEDICARE Care Teams Salon Leader Relationship Specialty Start Date End Date Susy Sylvester [address] [place] [address] [place] [address] PCP - General Internal Medicine 06/14/23
== END 2024-05-24 12:25 | disposition home or self-care (01) ==
PROVIDERS: PCP Internal Medicine; Visit Provider Internal Medicine Nephrology
DX: I10 Essential (primary) hypertension (principal); N28.1 Cyst of kidney, acquired; N18.31 Chronic kidney disease, stage 3a
CPT/HCPCS: 99214

== ENCOUNTER → 2024-05-24 11:10 | Outpatient (BNVA) | payer MEDICARE, MEDICAID, SELFPAY | PROVIDERS: PCP Internal Medicine; Visit Provider Internal Medicine Nephrology | DX: I12.9 Hypertensive chronic kidney disease with stage 1 through stage 4 chronic kidney disease, or unspecified chronic kidney disease (principal); N18.31 Chronic kidney disease, stage 3a; N28.1 Cyst of kidney, acquired | CPT/HCPCS: 99212 ==

== ENCOUNTER 2024-05-28 10:14 | Emergency (ER) | payer MEDICARE, MEDICAID, SELFPAY ==
--- NOTE | ~2024-05-28 | XR_ITS ---
EXAMINATION: XR CHEST CLINICAL INFORMATION: hypertension leg swelling COMPARISON: 01/11/2024. TECHNIQUE: 2 views of the chest were obtained. FINDINGS: Mild cardiac enlargement. Mediastinal and hilar contours appear normal. The lungs are clear bilaterally. There is no pneumothorax or pleural effusion. There is no focal osseous or soft tissue abnormality. XR/XR chest 2V IMPRESSION: No active pulmonary disease. Electronically signed by: Pietro Gutierrez MD 05/28/2024 12:15 PM EDT
[2024-05-28 10:20] VITALS: BP 196/112; PULSE 90; O2SAT 94
[2024-05-28 10:26] VITALS: BMI 35.3
[2024-05-28 10:28] VITALS: BP 172/86; PULSE 88; RESP 22; TEMP 36.9; O2SAT 96
--- NOTE | 2024-05-28 11:37 | ECG_ITS ---
Test Reason : elevated bp Blood Pressure : */* mmHG Vent. Rate : 75 BPM Atrial Rate : 75 BPM P-R Int : 154 ms QRS Dur : 86 ms QT Int : 396 ms P-R-T Axes : 37 14 10 degrees QTcB Int : 442 ms Normal sinus rhythm Minimal voltage criteria for LVH, may be normal variant ( R in aVL ) Borderline ECG When compared with ECG of 12-Jan-2024 00:50, No significant change was found Referred By: Andrae Francis Electronically Signed By: VU ORTEGA
--- NOTE | 2024-05-28 11:37 | ED_ITS ---
HPI - General Adult General Chief complaint: Weakness Stated complaint: htn Time Seen by Provider: 05/28/24 10:18 Source: patient Mode of arrival: EMS History of Present Illness HPI narrative: 78-year-old male presents emergency department with concerns for his blood pressure. Patient had been on 3 blood pressure medications but was recently stopped torsemide and amlodipine since blood pressure continued to be elevated they restarted amlodipine. Patient was at home and they little bit of pressure was elevated and came in for further evaluation patient denies chest pain but has had an cough denies any fevers chills falls or injuries. Related Data Home Medications ?Medication ?Instructions ?Recorded ?Confirmed furosemide 20 mg tablet (Lasix) 20 mg PO DAILY PRN 05/24/24 zolpidem 5 mg tablet 5 mg PO BEDTIME 05/24/24 Previous Rx's ?Medication ?Instructions ?Recorded acetaminophen 500 mg tablet 500 mg PO Q6H PRN pain #30 tabs 09/07/21 diclofenac sodium 1 % topical gel 2 g topical QID PRN Arthritis pain 10/16/23 (Voltaren Arthritis Pain) 30 days #100 grams adult diapers pull-ups #240 ea 11/22/23 underpads (Bed Underpads) #240 ea 03/19/24 verapamil 120 mg 24 hr 120 mg PO DAILY 90 days #90 caps 03/19/24 capsule,extended release walker #1 ea 03/19/24 allopurinol 100 mg tablet 200 mg (2 x 100 mg) PO DAILY 90 04/04/24 days #180 tabs compression stockings #2 ea 04/12/24 atorvastatin 40 mg tablet 40 mg PO DAILY 90 days #90 tabs 04/15/24 meclizine 25 mg tablet 25 mg PO TID PRN dizziness 7 days 04/29/24 #21 tabs lisinopril 40 mg tablet 40 mg PO DAILY 90 days #90 tabs 05/03/24 commode (bedside commode) #1 ea 05/06/24 clonazepam 0.5 mg tablet 0.5 mg PO BEDTIME 30 days #30 tabs 05/07/24 fenofibrate 54 mg tablet 54 mg PO DAILY 90 days #90 tabs 05/07/24 cholecalciferol (vitamin D3) 25 25 mcg PO DAILY 90 days #90 caps 05/19/24 mcg (1,000 unit) capsule pramipexole 0.5 mg tablet 0.5 mg PO TID 15 days #45 tabs 05/19/24 sennosides 8.6 mg-docusate sodium 2 tab-cap (2 x 8.6-50 mg) PO 05/19/24 50 mg capsule (Senna Plus) BEDTIME 60 days #120 caps blood sugar diagnostic (Accu-Chek #100 ea 05/23/24 Guide test strips) blood-glucose meter (Accu-Chek #1 ea 05/23/24 Guide Glucose Meter) lancets (Accu-Chek Fastclix Lancet #200 ea 05/23/24 Drum) lancing device with lancets kit #1 ea 05/23/24 (Accu-Chek FastClix Lancing Device kit) metformin 500 mg tablet,extended 500 mg PO DAILY #90 tabs 05/23/24 release 24 hr omeprazole 20 mg capsule,delayed 20 mg PO DAILY 90 days #90 caps 05/23/24 release trazodone 50 mg tablet 50 mg PO BEDTIME #90 tabs 05/23/24 albuterol sulfate 90 mcg/actuation 2 puff inhalation Q6H PRN 05/24/24 aerosol inhaler shortness of breath or wheezing #8.5 grams carbidopa 25 mg-levodopa 100 mg 2 tab PO BID 90 days #360 tabs 05/27/24 tablet Allergies Allergy/AdvReac Type Severity Reaction Status Date / Time pravastatin Allergy Intermediate dry mouth Verified 05/28/24 10:27 Review of Systems 2 Review of Systems: Review of systems: General: Patient denies any fever chills recent illness or falls Musculoskeletal: Denies back pain or body aches or other injuries HEENT: denies headache, runny nose, ear pain Respiratory: cough denies shortness of breath, Cardiovascular: no chest pain or palpitations : denies dysuria, frequency Abdomen: no nausea vomiting denies abdominal pain Extremities: no swelling, no pain Skin: no diaphoresis Yes all other systems are reviewed and are negative [facility] Past Medical History Medical History (Updated 05/28/24 @ 13:01 by Andrae Francis DO) CHF (congestive heart failure) Type 2 diabetes mellitus with hemoglobin A1c goal of less than 7.0% New onset type 2 diabetes mellitus CKD (chronic kidney disease) stage 2, GFR 60-89 ml/min On allopurinol therapy Prostate cancer CKD (chronic kidney disease) stage 3, GFR 30-59 ml/min Skin lesion Left knee pain Chronic pain syndrome Sacroiliac dysfunction Sacroiliitis Spondylosis without myelopathy or radiculopathy, lumbar region Adult general medical exam Screening for colon cancer Leg edema Urgency incontinence Parkinsons disease Mixed hyperlipidemia Essential hypertension GERD (gastroesophageal reflux disease) Lumbar degenerative disc disease Surgical History History of esophagogastroduodenoscopy (EGD) History of cataract surgery History of colonoscopy History of basal cell carcinoma (BCC) excision History of prostatectomy Family History Family History Father No problems noted. Mother Diabetes Cancer Social History Social History Household Members Other:: granddaughter Housing: Apartment Are you a primary acute care nurse practitioner to a significant other at home: No Do you presently have visiting nurse or other home services: No Alcohol intake: former Patient Tobacco Use Status: Never used Tobacco e-Cigarette/Vaping Use: Never Used Second Hand Smoke Exposure: No Advance Directives: Yes Advance Directives on File: Yes Advance Directives Date on File: 08/18/23 Do you have a plan to hurt others: No Plan service: No Current occupational status: disabled Current occupation: lt handed Cognitive needs: Yes Hearing needs: No Vision needs: No Physical Exam ED Vital Signs: Vital Signs - 24 hr 05/28/24 10:28 Temperature 98.5 F Pulse Rate 88 Respiratory Rate 22 H Blood Pressure 172/86 H Pulse Oximetry 96 Oxygen Delivery Method Room Air BMI result Body Mass Index 35.3 General: Well-appearing well-nourished in no signs of distress HEENT: Normocephalic atraumatic Neck: No signs of JVD, no masses no tenderness or lymphadenopathy Cardiovascular: Regular rate and rhythm Respiratory: Clear to auscultation bilaterally Abdomen: Soft nontender no masses Extremities: Normal pedal pulses 1+ edema with bilateral redness there was no tenderness to palpation present cellulitis Skin: Dry warm no rashes Back: No tenderness full ROM Course Course Course Narrative: X-ray and labs were all okay I do think the patient is safe to go home I did educate the patient on need follow up with their primary care doctor about possibly restarting the torsemide. Medical Decision Making Medical Decision Making [facility] Narrative: Patient has no chest pain otherwise looks well does have associated cough I will send for COVID flu RSV we will get a chest x-ray BNP with no chest pain I do not think the patient needs troponins I will get a screening EKG Differential Diagnosis Differential Diagnoses: The differential diagnosis associated with the presentation includes CHF hypertension uncontrolled Lab Data [facility] Lab Attestation statement: I reviewed the patient's lab results. 05/28/24 12:14 05/28/24 12:14 Labs: Lab Results 05/28/24 Range/Units 12:14 WBC 9.0 (4.8-10.8) X10*3/uL RBC 4.46 L (4.60-5.80) X10*6/uL Hgb 13.8 L (14.0-18.0) g/dl Hct 40.0 L (42.0-52.0) % MCV 89.7 (80.0-98.0) fL MCH 30.9 (27.0-33.0) pg MCHC 34.5 (31.0-36.0) g/dl RDW 13.8 (11.0-16.0) % Plt Count 194 (160-400) X10*3/uL MPV 12.0 (9.4-12.4) fL Immature Gran % (Auto) 0.4 (0.0-0.4) % Neut % (Auto) 77.9 H (45-73) % Lymph % (Auto) 9.6 L (20-40) % Carbon % (Auto) 8.7 (2-11) % Eos % (Auto) 3.1 (0-4) % Baso % (Auto) 0.3 (0-2) % Lymph # (Auto) 0.9 L (1.2-4.9) X10*3/uL Carbon # (Auto) 0.8 (0.1-1.2) X10*3/uL Eos # (Auto) 0.3 (0.0-0.4) X10*3/uL Baso # (Auto) 0.0 (0.0-0.2) X10*3/uL Abs Immat Gran (auto) 0.04 H (0.00-0.03) X10*3/uL Absolute Neuts (auto) 7.0 (2.0-8.3) x10*3/uL Absolute Nucleated RBC 0.000 (0.0-0.012) X10*3/uL Nucleated RBC % (auto) 0.0 (0.0-0.2) /100WBC Sodium 140 (135-145) mmol/L Potassium 3.9 (3.3-5.1) mmol/L Chloride 108 (96-108) mmol/L Carbon Dioxide 25 (22-29) mmol/L Anion Gap 11 L (12-20) BUN 21 H (9-16) mg/dL Creatinine 1.21 (0.5-1.4) mg/dL Estim Creat Clear Calc 62.9 Estimated GFR 58 Random Glucose 138 H (60-115) mg/dL Calcium 9.1 (8.4-10.2) mg/dL Total Bilirubin 0.5 (0.0-1.0) mg/dL Direct Bilirubin 0.2 (0.0-0.5) mg/dL AST 27 (5-37) U/L ALT 45 H (0-40) U/L Alkaline Phosphatase 73 (39-117) U/L B-Natriuretic Peptide 165 H (<100) pg/mL Total Protein 7.4 (6.5-8.0) g/dL Albumin 4.1 (3.5-5.0) g/dL Lipase 13 (8-78) U/L Independent Interpretation I performed an independent interpretation of an: EKG and Plain X-Ray Discharge Plan Discharge Clinical Impression: Hypertension, Bilateral edema of lower extremity Patient Disposition: Home, Self-Care Instructions: Hypertension (ED), Leg Edema (ED) Additional Instructions: You were seen today for high blood pressure and leg edema. You had x-ray and labs which were all negative. Please call follow up with your doctor if you have any other concerns please return to the ER. Prescriptions: No Action diclofenac sodium [Voltaren Arthritis Pain] 1 % gel 2 g topical QID PRN (Reason: Arthritis pain) 30 Days Qty: 100 1RF Rx Instructions: apply to single elbow, wrist or hand; for hand includes palm/fingers/back of hand atorvastatin 40 mg tablet 40 mg PO DAILY 90 Days Qty: 90 2RF meclizine 25 mg tablet 25 mg PO TID PRN (Reason: dizziness) 7 Days Qty: 21 0RF lisinopril 40 mg tablet 40 mg PO DAILY 90 Days Qty: 90 1RF (DME) bedside commode Kit See Rx Instructions .Route Qty: 1 0RF Rx Instructions: As directed clonazepam 0.5 mg tablet 0.5 mg PO BEDTIME 30 Days Qty: 30 0RF fenofibrate 54 mg tablet 54 mg PO DAILY 90 Days Qty: 90 1RF pramipexole 0.5 mg tablet 0.5 mg PO TID 15 Days Qty: 45 0RF cholecalciferol (vitamin D3) 25 mcg (1,000 unit) capsule 25 mcg PO DAILY 90 Days Qty: 90 1RF Senna Plus 8.6-50 mg capsule 2 tab-cap PO BEDTIME 60 Days Qty: 120 1RF carbidopa-levodopa 25-100 mg tablet 2 tab PO BID 90 Days Qty: 360 1RF acetaminophen 500 mg tablet 500 mg PO Q6H PRN (Reason: pain) Qty: 30 0RF (DME) adult diapers pull-ups XL See Rx Instructions .Route .MEDSUPPLY Qty: 240 11RF Rx Instructions: As directed allopurinol 100 mg tablet 200 mg PO DAILY 90 Days Qty: 180 4RF (DME) underpads [Bed Underpads] Pad See Rx Instructions .Route Qty: 240 11RF Rx Instructions: Use 8 pads per day verapamil 120 mg capsule,ext rel. pellets 24 hr 120 mg PO DAILY 90 Days Qty: 90 0RF (DME) walker Misc See Rx Instructions .Route Qty: 1 0RF Rx Instructions: walker with seat and wheels (DME) compression stockings 25-30 mmhg See Rx Instructions .Route .MEDSUPPLY Qty: 2 0RF Rx Instructions: As directed zolpidem 5 mg tablet 5 mg PO BEDTIME albuterol sulfate 90 mcg/actuation HFA aerosol inhaler 2 puff inhalation Q6H PRN (Reason: shortness of breath or wheezing) Qty: 8.5 0RF furosemide [Lasix] 20 mg tablet 20 mg PO DAILY PRN metformin 500 mg tablet extended release 24 hr 500 mg PO DAILY Qty: 90 1RF omeprazole 20 mg capsule,delayed release(DR/EC) 20 mg PO DAILY 90 Days Qty: 90 3RF trazodone 50 mg tablet 50 mg PO BEDTIME Qty: 90 1RF (DME) lancets [Accu-Chek Fastclix Lancet Drum] Misc See Rx Instructions .ROUTE .MEDSUPPLY Qty: 200 0RF Rx Instructions: As directed (DME) lancing device with lancets [Accu-Chek FastClix Lancing Dev] Kit See Rx Instructions .ROUTE .MEDSUPPLY Qty: 1 0RF Rx Instructions: As directed (DME) blood-glucose meter [Accu-Chek Guide Glucose Meter] Misc See Rx Instructions .ROUTE .MEDSULY Qty: 1 0RF Rx Instructions: As directed (DME) Accu-Chek Guide test strips Strip See Rx Instructions .Route Qty: 100 0RF Rx Instructions: As directed Print Language: Tajik
[2024-05-28 12:20] LABS: MANUAL DIFF FLAG NO
[2024-05-28 12:22] LABS: Basophils Percent Auto 0.3 % (0-2); Eosinophils Absolute Auto 0.3 X10*3/uL (0.0-0.4); Eosinophils Percent Auto 3.1 % (0-4); Hemoglobin 13.8 g/dl (14.0-18.0); Imm Gran Abs Auto 0.04 X10*3/uL (0.00-0.03); Imm Gran Pct Auto 0.4 % (0.0-0.4); Lymphocytes Absolute Auto 0.9 X10*3/uL (1.2-4.9); Lymphocytes Percent Auto 9.6 % (20-40); Mean Corpuscular HGB Conc 34.5 g/dl (31.0-36.0); Mean Corpuscular Hemoglobin 30.9 pg (27.0-33.0); Mean Corpuscular Volume 89.7 fL (80.0-98.0); Monocytes Absolute Auto 0.8 X10*3/uL (0.1-1.2); Monocytes Percent Auto 8.7 % (2-11); Neutrophils Percent Auto 77.9 % (45-73); Platelet Count 194 X10*3/uL (160-400); Red Blood Count 4.46 X10*6/uL (4.60-5.80); Red Cell Distribution Width 13.8 % (11.0-16.0)
[2024-05-28 12:37] LABS: Alanine Aminotransferase 45 U/L (0-40); Albumin Level 4.1 g/dL (3.5-5.0); Alkaline Phosphatase 73 U/L (39-117); Anion Gap 11 (12-20); Aspartate Amino Transferase 27 U/L (5-37); Bilirubin Direct 0.2 mg/dL (0.0-0.5); Bilirubin Total 0.5 mg/dL (0.0-1.0); Blood Urea Nitrogen 21 mg/dL (9-16); Calcium 9.1 mg/dL (8.4-10.2); Carbon Dioxide 25 mmol/L (22-29); Chloride 108 mmol/L (96-108); Creatinine Clr Calc Pharmacy 62.9; Estimated Glomerular Filt Rate 58; Glucose Random 138 mg/dL (60-115); Lipase 13 U/L (8-78); Potassium 3.9 mmol/L (3.3-5.1); Sodium 140 mmol/L (135-145); Total Protein 7.4 g/dL (6.5-8.0)
[2024-05-28 12:41] LABS: B Type Natriuretic Peptide 165 pg/mL (<100)
[2024-05-28 13:03] LABS: Influenza A PCR NEGATIVE (Negative); Influenza B PCR NEGATIVE (Negative); Resp Syncy Virus RNA Qual PCR POSITIVE (Negative); SARS COV2 PCR INHOUSE NEGATIVE (Negative)
[2024-05-28 13:12] VITALS: BP 155/88; PULSE 83; RESP 18; TEMP 36.7; O2SAT 97
--- OUTSIDE RECORDS SUMMARY | 2024-05-28 13:31 | XMS_ITS | Referral Summary ---
Author Organization [facility] Address [address] [place] [address] Care Team Providers Care Coil Shaper Name Role Phone Mika ArthurteiSusy Primary Care Provider Allergies No known active allergies Medications meclizine [...] Description 06/05/2024 1:00 PM EDT Office Visit [facility]rology Clinic [address] [place] [address] Cristhian Ruff DO [address] [place] [address] [place] [address] [facility] MEDICARE Care Teams Coil Shaper Relationship Specialty Start Date End Date Susy Sylvester [address] [place] [address] [place] [address] PCP - General Internal Medicine 06/14/23
--- OUTSIDE RECORDS SUMMARY | 2024-05-28 13:31 | XMS_ITS | Clinical Summary ---
Author Organization [facility] Address [address] [place] [address] Care Team Providers Care Barrel Loader And Cleaner Name Role Phone Susy Sylvester Primary Care Provider [phone] Allergies No known active allergies Medications meclizine [...] Office Visit [facility] Clinic [address] [place] [address] Cristhian Ruff DO [address] [place] [address] Health Maintenance Due Date Last Done Comments [...] patient's age to complete this topic Insurance [facility] MEDICARE Care Teams Barrel Loader And Cleaner Relationship Specialty Start Date End Date Susy Sylvester [address] [place] [address] dr [place] Moore, BAR[place] [address] PCP - General Internal Medicine 06/14/23
--- OUTSIDE RECORDS SUMMARY | 2024-05-28 13:31 | XMS_ITS | Data Portability ---
Author Organization [place] - [facility], Allergy Address [address] [place] [id number] Assessment Encounter Date Assessment Date Assessment LastModified by Organization Details LastModified Time 10/30/2023 10/30/2023 78 year old Syriac speaking male with a history of dementia [...] contra st 2023 [email or web address] [facility], [address] [place] [address], [phone], 4 11:35:27 CT, maxill ofacia l, w/o contra st [address] [facility], [address] [place] [address], [phone], 4 10:11:43 Medication Orders doxycy maciel hyclat e 100 mg tablet 2023 [facility], [address] [place] [address], [id number], 4 10:36:41 flutic asone propio mynor 50 mcg/ac tuatio n nasal spray, suspen padmini 2023 [facility], [address] [place] [address], [id number], 4 14:57:14 Patient TargetsNo targets recorded. Patient InstructionsNo instructions recorded. Reason for Referral None Reported. Results Created Date Observation Date Name Description Value Unit Range Abnormal Flag Note LastModifiedBy Organization Detail LastModifiedTime 12/08/[address], sinus es, w/o contr ast No observ ation record ed. [email or web address] [facility] [address], [address], 12/08/2023 11:35:24 Result Notes None recorded. Problems Name Problem SNOMED Code Status Onset Date Resolution Date Notes Provider Name and Address Organization Details Recorded Time Nasal congestion 24456639 Active JAYSON SHIELDS MD [address] [place] [address], [phone], [facility] - [facility] 4 11:58:59 Chronic maxillary sinusitis 30299898 Active JAYSON SHIELDS MD 100 [facility], [place], [address], [place] - [facility] 4 12:00:46 Chronic rhinitis 56575040 Active 024 JAYSON SHIELDS MD 100 [facility], [place], [address], [place] - [facility] 4 12:01:02 Chronic sinusitis 40514722 Active 024 JAYSON SHIELDS MD [address] [facility], [place], [address], [place] - [facility] 4 12:01:02 Polyp of nasal cavity 839353989 Active 024 JAYSON SHIELDS MD 100 [facility], [place], [address], [place] - [facility] 4 13:04:18 Parkinson's disease 71216979 Active 024 JYASON SHIELDS MD 100 [facility], [place], [address], [place] - [facility] 4 11:34:00 Impaired cognition 845786323 Active 024 JAYSON SHIELDS MD 100 [facility], [place], [address], [place] - [facility] 4 11:34:12 Problem Notes None recorded. Procedures Surgical History Date Name Laterality Status Provider Name and Address Organization Details Recorded Time 4 JMSNasal/Sinus Endoscopy completed JAYSON ALEXANDER MD [address], [address], [place] - [facility] 10/30/2023 12:04:04 Cataract Surgery completed Deny Blanca [place] - [facility] 10/30/2023 11:20:20 excision of basal cell carcinoma completed Deny Blanca [place] - [facility] 10/30/2023 11:20:58 Imaging Results Imaging Date Name Status LastModified by Organiz ation Details LastModified Time 12/08/2023 CT, sinuses, w/o contrast completed [email or web address] [facility] [address], [place], [address], 12/08/2023 11:35:24 Procedure Notes None recorded. Medical [...] Updated DateTime 10/30/2023 172.72 cm 32.8 kg/m2 61338.95 g Deny Blanca [place] - [facility] 10/30/2023 11:37:14 Social History None recorded. Functional Status None recorded. Mental Status None recorded. Family History Nothing Reported. Medical History No medical history recorded. Past Encounters Encounter ID Performer Location Encounter Start Date Encounter Closed Date Diagnosis/Indication Diagnosis SNOMED-CT Code Diagnosis ICD10 Code Diagnosis Note [id number] JAYSON BARRY MD [facility] [address] [address] 10/30/2023 11:00:35 10/30/2023 12:05:28 Nasal congestion 55928991 R09.81 Chronic [place] xillary sinusitis 03203769 J32.0 Chronic rhinitis 0844577 6 J31.0 Polyp of nasal cavity 73 5633953 J33.0 [id number] JAYSON BARRY MD [facility] [address] [place] [address] 12/08/2023 10:32:17 12/08/2023 16:44:16 Chronic sinusitis 74326121 J32.9 Parkinson's disease 4904 9000 G20.A1 Impaired cognition 18280 6002 R41.89 Health Concerns Section Related Observation LastModified by Organization Detai ls LastModified Time None Recorded Concern Status LastModified by Organization Details LastModified Time None Recorded Advance Directives Directive None Recorded Payers Encounter Date Sequence Insurance Name Policy Number Policy Vargas Covered Member ID Vargas Member ID Guarantor Name 10/30/2023 2 [place] [facility] Onur Colon [id number] Onur Colon 10/30/2023 1 MEDICARE B-[place]: [facility] [employer] Onur Colon [id number] Onru Colon 12/08/2023 2 [place] Onur Colon [id number] Onur Colon 12/08/2023 1 [place] [employer] Onur Colon [id number] Onur Colon Notes Date Note Type [...] unfortunately did not improve his symptoms. His frweywrx-cv-yey and son help translate for him. JAYSON ALEXANDER MD [address], [address], [place] - [facility] 10/30/2023 13:04:39 12/08/2023 text/html Family notes kesha t patient feels improved following the antibiotics and nasal steroids. Previously noted to have incidental findings of polyps and hyperdense secretions.No other change in his history prior visit78 year old Syriac speaking male with a history of dementia [...] surgery given to family JAYSON ALEXANDER MD [address] [place] [address],[place] [address], [place], [address], [facility] - [facility] 12/08/2023 11:35:55
--- OUTSIDE RECORDS SUMMARY | 2024-05-28 13:31 | XMS_ITS | Clinical Summary ---
Author Organization [facility] Facility Address [address] [place] [address], [place] [address] Care Team Providers Care Cooler Tender Name Role Phone Susy Sylvester MD Primary Care Provider [phone] Allergies No known active allergies Medications trihexyphenidyl [...] age to complete this topic Insurance [address] [place] [address] [place]ICAID [place] MEDICARE Care Teams Cooler Tender Relationship Specialty Start Date End Date Susy Sylvester MD [address] [place], [place] PCP - General Internal Medicine 03/31/22
--- OUTSIDE RECORDS SUMMARY | 2024-05-28 13:31 | XMS_ITS | Data Portability ---
Author Organization BELLO Edwards s, [id number] Address [address] [place] [address] Care Team Providers Care Pr Internship Name Role Phone [facility] Primary Care Provider [phone] Assessment No assessment recorded. Plan of Treatment Reminders Order Date Submit Date Provider Last Modified By Organization Details Last Modified Time Details Appointments None record ed. Lab None record ed. Referral None record ed. Procedures None record ed. Surgeries None record ed. Imaging XR, elbow, 3 or more view 023 03/27/19 [facility], [address] [place], [address], 17:46:19 XR, wrist, 3 or more view 023 03/27/19 [facility], [address] [place], [address], 3 17:45:16 Medication Orders None record ed. Patient TargetsNo targets recorded. Patient InstructionsNo instructions recorded. Reason for Referral None Reported. Results Created Date Observation Date Name Description Value Unit Range Abnormal Flag Note LastModifiedBy Organization Detail LastModifiedTime 03/27/19 23 03/27/2022 XR, wrist , 3 or more view No observ ation record ed. [email or web address] 1 [facility] [address] [place], [address], 03/27/2022 17:56:06 03/27/19 23 03/27/2022 XR, elbow , 3 or more view No observ ation record ed. [email or web address] 1 [facility] [address] [place], [address], 03/27/2022 17:56:07 Result Notes None recorded. Problems Name Problem SNOMED Code Status Onset Date Resolution Date Notes Provider Name and Address Organization Details Recorded Time Hypercholestero lemia 66241644 Active 2022 LES VERENICE null, [place] - [facility] 3 15:46:31 Hypertensive disorder 41165171 Active 2022 LES VERENICE null, PA - [facility] 3 15:46:39 Parkinson's disease 50862285 Active 2022 LES VERENICE null, PA - [...] completed [email or web address] [facility] [address] [place], [address], 03/27/2022 17:56:06 03/27/2022 XR, elbow, 3 or more view completed [email or web address] [facility] [address] [place], [address], 03/27/2022 17:56:07 Procedure Notes None recorded. Medical [...] Updated DateTime 3 172.72 cm 34.7 kg/m2 286372. 06 g 8 98 % 98 % [...] SNOMED-CT Code Diagnosis ICD10 Code Diagnosis Note [id number] [facility]LLO ROONEY [address] [address] 03/27/2022 15:10:11 03/27/2022 17:36:55 Pain of left wrist [id number] 06414 M25.532 No acute fracture of the wrist [...] week. Pain of le ft elbow joint [id number] 1041648 M25.522 No acute fracture of the elbow noted on x-ray. Please follow up with primary care doctor to manage this and/or continue further workup if symptoms are not improving with conservati ve measures over the next week. You may take Tylenol for pain, ice, rest and keep it elevated. Osteoarthr itis of wrist [id number] M19.039 Health Concerns Section Related Observation LastModified by Organization Detai ls LastModified Time None Recorded Concern Status LastModified by Organization Details LastModified Time None Recorded Advance Directives Directive None Recorded Payers Encounter Date Sequence Insurance Name Policy Number Policy Vargas Covered Member ID Vargas Member ID Guarantor Name 03/27/2022 1 [place] [employer] Onur Colon [id number] Onur Colon 03/27/2022 2 [place] [facility] Onur Colon [id number] Onur Colon Notes Date Note Type Note Provider Name and Address Organization Details Recorded Time 03/27/2022 text/html Onur is a 76 yo left handed male M with PMH of HTN, HLD, parkinson's, GERD, here for left hand swelling that radiates up to forearm x 4 days. Here with dixie who is assisting in translation of english. She notes he has been avoiding using [...] Ramos, BELLO [address] [place], [address], [place] - [facility] 03/27/2022 17:32:52
--- OUTSIDE RECORDS SUMMARY | 2024-05-28 13:31 | XMS_ITS | Encounter Summary ---
Author Organization [facility] Address [address] [place] [address] Care Team Providers Care Interlocking Tower Operator Name Role Phone Susy Sylvester Primary Care Provider [phone] Encounter Details Date Type Department Care Team (Late st Contact Info) Description 12/21/2023 Orders Only [facility] Nuclear Medicine [address] [place] [address] Jake Angulo MD PhD [address] [place] [address] Social History Tobacco Use Types Packs/Day Years [...] 06/05/2024 1:00 PM EDT Office Visit [facility] [address] [place] [address] Cristhian Ruff DO [address] [place] [address] documented as of this encounter Visit Diagnoses Not on filedocumented in this encounter Care Teams Interlocking Tower Operator Relationship Specialty Start Date End Date Susy Sylvester [address] [place] [address] dr Oscar Moore, BARI [address] PCP - General Internal Medicine 06/14/23 documented as of this encounter
== END 2024-05-28 13:12 | disposition home or self-care (01) ==
PROVIDERS: Emergency Provider Student in an Organized Health Care Education/Training Program; PCP Internal Medicine
DX: R60.0 Localized edema (principal); G20.A1 Parkinson's disease without dyskinesia, without mention of fluctuations; R94.31 Abnormal electrocardiogram [ECG] [EKG]; R05.9 Cough, unspecified; E11.9 Type 2 diabetes mellitus without complications; I10 Essential (primary) hypertension; Z03.818 Encounter for observation for suspected exposure to other biological agents ruled out; Z79.899 Other long term (current) drug therapy; Z79.84 Long term (current) use of oral hypoglycemic drugs
CPT/HCPCS: 0241U; 36415; 71046; 80048; 80076; 83690; 83880; 85025; 93005; 99283

== ENCOUNTER → 2024-05-28 11:37 | Outpatient (BNV) | payer MEDICARE, MEDICAID, SELFPAY | PROVIDERS: Emergency Provider Student in an Organized Health Care Education/Training Program; PCP Internal Medicine; Visit Provider Internal Medicine | DX: I10 Essential (primary) hypertension (principal); R94.31 Abnormal electrocardiogram [ECG] [EKG] | CPT/HCPCS: 93010 ==

== ENCOUNTER → 2024-05-28 11:38 | Outpatient (BNV) | payer MEDICARE, MEDICAID, SELFPAY | PROVIDERS: Emergency Provider Student in an Organized Health Care Education/Training Program; PCP Internal Medicine; Visit Provider Radiology Diagnostic Radiology | DX: I10 Essential (primary) hypertension (principal); R22.40 Localized swelling, mass and lump, unspecified lower limb | CPT/HCPCS: 71046 ==

== ENCOUNTER 2024-06-06 09:23 | Outpatient (AMB) | payer MEDICARE, MEDICAID, SELFPAY ==
--- NOTE | 2024-06-06 09:30 | MHC.PC.OV ---
Vital Signs 06/06/24 09:31 Height 5 ft 9 in Weight 248 lb 4 oz BMI 36.7 BP 138/80 Blood Pressure Location Lt brachial Position Sitting Pulse 81 Pulse Source Pulse Oximeter Temp 97.5 F Temp Source Temporal Artery Scan Pulse Oximetry (%) 98 Oxygen Delivery Method Room Air Intake Visit Reasons: 2 week f/u Infectious Disease Technician Required: No Accompanied by: Son Allergies pravastatin Allergy (Intermediate, Verified 06/06/24 10:49) dry mouth Medication List - Last Reconciled 06/06/24 by Kalina Crisostomo PA-C acetaminophen 500 mg PO Q6H PRN [adult diapers pull-ups As directed] albuterol sulfate 90 mcg/actuation 2 puffs inhalation Q6H PRN allopurinol 200 mg (2 x 100 mg) PO DAILY 90 days atorvastatin 40 mg PO DAILY 90 days blood sugar diagnostic (Accu-Chek Guide test strips) As directed blood-glucose meter (Accu-Chek Guide Glucose Meter) As directed carbidopa-levodopa 25-100 mg 2 tabs PO BID 90 days cholecalciferol (vitamin D3) 25 mcg PO DAILY 90 days clonazepam 0.5 mg PO BEDTIME 30 days commode (bedside commode) As directed [compression stockings As directed] diclofenac sodium 1% (Voltaren Arthritis Pain) 2 grams topical QID PRN 30 days fenofibrate 54 mg PO DAILY 90 days furosemide (Lasix) 20 mg PO BID PRN lancets (Accu-Chek Fastclix Lancet Drum) As directed lancing device with lancets (Accu-Chek FastClix Lancing Device kit) As directed lisinopril 40 mg PO DAILY 90 days meclizine 25 mg PO TID PRN 7 days metformin ER 500 mg PO DAILY omeprazole 20 mg PO DAILY 90 days pramipexole 0.5 mg PO TID 15 days sennosides-docusate sodium 8.6-50 mg (Senna Plus) 2 tab-caps (2 x 8.6-50 mg) PO BEDTIME 60 days trazodone 50 mg PO BEDTIME underpads (Bed Underpads) Use 8 pads per day walker walker with seat and wheels zolpidem 5 mg PO BEDTIME Tobacco use date assessed: 04/12/24 Fall risk assessment: No Falls in past year Last assessed Fall Risk: 06/06/24 Dental Screening Dental Screen Date: 05/23/24 [facility] Medical History CHF (congestive heart failure) Type 2 diabetes mellitus with hemoglobin A1c goal of less than 7.0% New onset type 2 diabetes mellitus CKD (chronic kidney disease) stage 2, GFR 60-89 ml/min On allopurinol therapy Prostate cancer CKD (chronic kidney disease) stage 3, GFR 30-59 ml/min Skin lesion Left knee pain Chronic pain syndrome Sacroiliac dysfunction Sacroiliitis Spondylosis without myelopathy or radiculopathy, lumbar region Adult general medical exam Screening for colon cancer Leg edema Urgency incontinence Parkinsons disease Mixed hyperlipidemia Essential hypertension GERD (gastroesophageal reflux disease) Lumbar degenerative disc disease Surgical History History of esophagogastroduodenoscopy (EGD) History of cataract surgery History of colonoscopy History of basal cell carcinoma (BCC) excision History of prostatectomy Family History Father No problems noted. Mother Diabetes Cancer Social History Household Members Other:: granddaughter Housing: Apartment Are you a primary health care specialist to a significant other at home: No Do you presently have visiting nurse or other home services: No Alcohol intake: former Patient Tobacco Use Status: Never used Tobacco e-Cigarette/Vaping Use: Never Used Second Hand Smoke Exposure: No Advance Directives Date on File: 08/18/23 service: No Current occupational status: disabled Current occupation: lt handed Cognitive needs: Yes Hearing needs: No Vision needs: No Questionnaire Thrive Questionnaire Date Thrive assessed: 05/23/24 DULCE-7 AMB Questionnaire DULCE-7 Date DULCE - 7 assessed: 05/23/24 Source: Developed by Drs. Iggy Kelly, Ivett Easley, Chinmay Gutierrez and colleagues, with an educational darryn from [employer]. Physical exam (Primary Care) Vital Signs: Last Vital Signs Temp 97.5 F 06/06/24 09:31 Pulse 81 06/06/24 09:31 BP 138/80 06/06/24 09:31 Pulse Ox 98 06/06/24 09:31 Oxygen Delivery Method Room Air 06/06/24 09:31 BMI result Body Mass Index 36.7 Tobacco/Smoking Status: Tobacco use Status Tobacco use date assessed 04/12/24 06/06/24 09:31 Patient Tobacco Use Status Never used Tobacco 06/06/24 09:31 e-Cigarette/Vaping Use Never Used 06/06/24 09:31 Thrive Assessment: Date of Thrive Assessment Date Thrive assessed 05/23/24 06/06/24 09:31 Coding Level of Care Code Est Pt Level 4 (64800) Complex EM visit Add On G2211 Diagnoses Obstructive sleep apnea syndrome G47.33 Essential hypertension I10 Leg edema R60.0 CKD (chronic kidney disease) stage 2, GFR 60-89 ml/min N18.2 Type 2 diabetes mellitus with hemoglobin A1c goal of less than 7.0% E11.9 CHF (congestive heart failure) I50.9 Parkinson's disease with dyskinesia and fluctuating manifestations G20.B2 Dyskinesia presence: with dyskinesia Fluctuating manifestations: with fluctuating manifestations Assessment & Plan Assessment & Plan (1) Obstructive sleep apnea syndrome: Code(s): G47.33 - Obstructive sleep apnea (adult) (pediatric) Plan: Per nephrology knows they recommended patient be referred to sleep study therefore order placed at this time. Condition is chronic and stable continue to monitor. (2) Essential hypertension: Code(s): I10 - Essential (primary) hypertension Category: Medical Plan: Goal for blood pressure less than 130/80. Blood pressure normal today at 138/80. Patient currently on lisinopril 40 mg daily. Patient was discontinued off verapamil 120 mg daily due to pedal edema could be a cause. Patient was only taking furosemide daily p.r.n. although I discussed this with Dr. Brennan and she reported that the patient should be on furosemide 20 mg b.i.d.. This was updated in the patient with family members were given an updated medication list. Patient is to return in 6-8 weeks for reassessment. Family reports patient is being followed by paleontology teacher here in [place] although not part of [facility]. I explained to them that we will need all the records from the paleontology teacher that he is currently seeing to ensure better management of his chronic medical conditions. Condition is chronic and stable continue to monitor. (3) Leg edema: Code(s): R60.0 - Localized edema Category: Medical Plan: Could be related to verapamil therefore patient was discontinued. Patient is currently on furosemide daily p.r.n. although patient was instructed to start taking furosemide 20 mg b.i.d.. Patient to follow-up with vascular surgeon as well referral placed at this time. Condition is chronic and stable continue to monitor. (4) CKD (chronic kidney disease) stage 2, GFR 60-89 ml/min: Code(s): N18.2 - Chronic kidney disease, stage 2 (mild) Category: Medical Plan: Patient being followed by Nephrology. They recommended to continue avoiding any NSAIDs. They reported that the patient can continue lisinopril due to creatinine is normal at this time. Patient has proper follow-up. Condition is chronic and stable continue to monitor. (5) Type 2 diabetes mellitus with hemoglobin A1c goal of less than 7.0%: Code(s): E11.9 - Type 2 diabetes mellitus without complications Category: Medical Plan: A1c level goal less than 7.0. A1c level on 05/23/2024 7.3. Will continue current regimen for diabetes of metformin 500 mg daily. Condition is chronic and stable continue to monitor. (6) CHF (congestive heart failure): Code(s): I50.9 - Heart failure, unspecified Category: Medical Plan: Goal for blood pressure less than 130/80. Blood pressure normal today at 138/80. Patient currently on lisinopril 40 mg daily. Patient was discontinued off verapamil 120 mg daily due to pedal edema could be a cause. Patient was only taking furosemide daily p.r.n. although I discussed this with Dr. Brennan and she reported that the patient should be on furosemide 20 mg b.i.d.. This was updated in the patient with family members were given an updated medication list. Patient is to return in 6-8 weeks for reassessment. Family reports patient is being followed by paleontology teacher here in [place] although not part of [facility]. I explained to them that we will need all the records from the paleontology teacher that he is currently seeing to ensure better management of his chronic medical conditions. Condition is chronic and stable continue to monitor. (7) Parkinsons disease: Code(s): G20 - Parkinson's disease Category: Medical Qualifiers: Dyskinesia presence: with dyskinesia Fluctuating manifestations: with fluctuating manifestations Qualified Code(s): G20.B2 - Parkinson's disease with dyskinesia, with fluctuations Plan: [place] patient currently being followed by neurologist and [place]. Currently on carbidopa levodopa. Family reports he had recent medication dosage changes. They are unsure exactly the doses. I explained to them they will need to sign a release form so this neurologist concerned us the updated last visit and medication list there are back to ensure better management of chronic medical conditions. Condition is chronic and stable continue to monitor. Plan Plan Patient was informed and verbally consented to the use of an ambient scribe for clinic note documentation during this visit. 1. Hypertension Maintain current antihypertensive treatment regimen with close monitoring for exacerbations. 2. Depression Maintain existing therapeutic approach with behavioral health support. 3. Stage 3 Chronic Kidney Disease Regular monitoring for kidney function, ensuring avoidance of nephrotoxins with supportive hydration. 4. Peripheral Edema Clarify correct furosemide administration, evaluating efficacy regularly. 5. Sleep Apnea Recommend follow-through with the planned sleep study. 6. Diabetes Mellitus Encourage tight glycemic control, related follow-up essential. 7. Parkinson's Disease Continue current medications, adjusting per effectiveness. 8. Vascular Disease Arrange vascular imaging for proper assessment. Discussion Notes During this visit, we reviewed the various facets affecting this gentleman's poly-systemic status, particularly addressing the recent suboptimal management his peripheral edema has been undergoing. The consensus was the reinstatement of a consistent dosing schedule of furosemide 20 mg twice daily, seeing as prior inconsistency, instigated non-physicianally, had regrettably regressed resolving intents. I emphasized the critical nature of strict adherence alongside blood pressure regulation stipulated under current antihypertensive measures. Furthermore, diagnostic prospects?like sleep studies for untreated apnea?were reinforced, nudging academic articulation on the interconnectedness of the patient's chronic vascular burdens. We consented on continued outpatient surveillances at six-week intervals, anticipating cardiac function touchpoints and adjustment preparedness pending urgent influences on systemic stability. Orders: Orders RT home sleep study Today G47.33 - Obstructive sleep apnea (adult) (pediatric) Referrals Vascular Surgery Referral E11.9 - Type 2 diabetes mellitus without complications, I10 - Essential (primary) hypertension, I50.9 - Heart failure, unspecified, N18.2 - Chronic kidney disease, stage 2 (mild), R60.0 - Localized edema Medications: New cephalexin 500 mg PO Q6H 28 caps 0RF 7 days doxycycline hyclate 100 mg PO BID 14 caps 0RF 7 days mupirocin 2% 1 appl topical QID 22 grams 3RF Refilled blood-glucose meter (Accu-Chek Guide Glucose Meter) As directed 1 ea 0RF Patient Instructions: Patient Instructions - Take furosemide 20 mg twice daily consistently. - Avoid taking NSAIDs as they may impair kidney function. - Follow your prescribed diabetes management plan closely. - Keep all follow-up appointments and return to see your primary care provider Dr. Susy Brennan in 6-8 weeks. - Contact the office if swelling increases or you experience new symptoms. - Participate in the sleep study to assess for sleep apnea. - Maintain your blood pressure log and medication adherence for hypertension. Scribe Plan - Not visible on output: History of Present Illness The patient is a 79-year-old male presenting with Son and daughter in law with follow-up needs primarily due to swelling in the legs, identified as peripheral edema from CHF and possibly side effect from Verapamil. His history reveals chronic hypertension, Parkinson's disease, and stage 3 chronic kidney disease, alongside a controlled diabetes mellitus marked by recent Hemoglobin A1c being 7.3. Current difficulties include the ineffectiveness of present edema management strategies, complicated recently by inconsistent medication routines stemming from miscommunication regarding furosemide administration, designed to balance fluid retention. Analyses of kidney function parameters, including BUN and creatinine, follow expected patterns for his renal stage, reinforcing the need for avoidance of nephrotoxic agents and regular surveillance. Additionally, past interventions and modifications to hypertension therapy in light of verapamil-induced leg swelling have occurred, with current prescriptions beneficially supporting stable blood pressure means, currently at 130/80 mmHg. Patient with son and rohyfioz-hw-ner at bedside report that patient is currently being seen by a paleontology teacher that is not a part of this hospital. I explained to him that we will need records sent to us from that paleontology teacher. He is also seen a neurologist for his Parkinson's disease and just recently had changes to his levodopa medication and I explained to them that we would need records from the neurologist as well to update all medication changes. I explained to them that they should not take the verapamil they understand this. And I also explained to them that they should be taking the furosemide 20 mg b.i.d.. I discussed this case with patient's primary care provider while the patient was here with Dr Susy Brennan. Neurology need of Tylenol or Motrin Review of Systems - Cardiovascular: Reports leg swelling. - Renal: Denies changes in urine output. - Neurological: Denies tremors or changes in Parkinson's symptoms. - Pulmonary: Reports sleep apnea. Physical Exam Appearance: Alert. Oriented X3. No acute distress. Head: Normal external exam. Normocephalic. Atraumatic. Eyes: Pupils are equal, round, and reactive to light. Extraocular movements intact. Conjunctiva and sclera normal. Eyelids normal. Ears: External auditory canal normal. Tympanic membranes normal. Throat: Pharynx normal. Uvula midline. Moist mucous membranes. Neck: Normal inspection. Neck supple. Full range of motion. No adenopathy. Thyroid Normal. No meningeal signs. No neck mass noted. Cardiovascular: Normal heart rate and rhythm. Heart sound normal. No murmurs noted. Pulses normal throughout. Respiratory: No respiratory distress. Painless inspiration. Breath sounds normal. No wheezes/rales/rhonchi noted. Chest nontender. No accessory muscle usage noted or decreased air movement noted. Abdomen: Soft and nontender. Bowel sounds normal in all 4 quadrants. No distention noted. No organomegaly noted. No visible injury noted. Back: No costovertebral angle tenderness. Full range of motion noted. Skin: Skin warm and dry. Normal skin color. Normal skin turgor. No rashes/lesions/lacerations noted. Extremities: + 3 pitting Lower extremity edema present. No calf tenderness is noted. Extremities exhibit normal range of motion. Extremities nontender. Neuro: Oriented X 3. No motor deficit. No sensory deficit. Reflexes normal. Results - Labs: - BUN: 21 - Creatinine: 1.21 - Hemoglobin A1c: 7.3
[2024-06-06 09:31] VITALS: BP 138/80; PULSE 81; TEMP 36.4; O2SAT 98; BMI 36.7
== END 2024-06-06 10:06 | disposition home or self-care (01) ==
LOC: HO.HMCH 09:23
PROVIDERS: PCP Internal Medicine; Visit Provider Physician Assistant Medical
DX: G47.33 Obstructive sleep apnea (adult) (pediatric) (principal); I12.9 Hypertensive chronic kidney disease with stage 1 through stage 4 chronic kidney disease, or unspecified chronic kidney disease; R60.0 Localized edema; N18.2 Chronic kidney disease, stage 2 (mild); E11.9 Type 2 diabetes mellitus without complications; I50.9 Heart failure, unspecified; G20.B2 Parkinson's disease with dyskinesia, with fluctuations

== ENCOUNTER → 2024-06-06 09:23 | Outpatient (BNVA) | payer MEDICARE, MEDICAID, SELFPAY | PROVIDERS: PCP Internal Medicine; Visit Provider Physician Assistant Medical | DX: G47.33 Obstructive sleep apnea (adult) (pediatric) (principal); I13.0 Hypertensive heart and chronic kidney disease with heart failure and stage 1 through stage 4 chronic kidney disease, or unspecified chronic kidney disease; E11.22 Type 2 diabetes mellitus with diabetic chronic kidney disease; N18.2 Chronic kidney disease, stage 2 (mild); I50.9 Heart failure, unspecified; R60.0 Localized edema; G20.B2 Parkinson's disease with dyskinesia, with fluctuations | CPT/HCPCS: 99212 ==

== ENCOUNTER 2024-06-18 09:49 | Outpatient (AMB) | payer MEDICARE, MEDICAID, SELFPAY ==
--- NOTE | 2024-06-18 10:07 | MHC.OFFVIS ---
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 Has been about 3-4 months. Has noticed the swelling is improving as he was given Lasix. Both legs are always itchy. 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 We utilized his daughter in law for interpretation. Complaints include swelling of lower extremities, fatigue, itchiness and heaviness of the lower extremities. It has been affecting their daily activities including walking, standing, and physical activity. It is noted in bilateral legs. He is a non smoker. He is a type II diabetic, with recent A1C of 7.3% on 05/23/24. Patient denies any previous venous surgery or injections. Patient denies any history of DVT/ PE. Patient denies any history of phlebitis. Trial of compression includes - elevation with slight relief They now present for vascular evaluation regarding their varicose veins. [facility] Medical History CHF (congestive heart failure) Type 2 diabetes mellitus with hemoglobin A1c goal of less than 7.0% New onset type 2 diabetes mellitus CKD (chronic kidney disease) stage 2, GFR 60-89 ml/min On allopurinol therapy Prostate cancer CKD (chronic kidney disease) stage 3, GFR 30-59 ml/min Skin lesion Left knee pain Chronic pain syndrome Sacroiliac dysfunction Sacroiliitis Spondylosis without myelopathy or radiculopathy, lumbar region Adult general medical exam Screening for colon cancer Leg edema Urgency incontinence Parkinsons disease Mixed hyperlipidemia Essential hypertension GERD (gastroesophageal reflux disease) Lumbar degenerative disc disease Surgical History History of esophagogastroduodenoscopy (EGD) History of cataract surgery History of colonoscopy History of basal cell carcinoma (BCC) excision History of prostatectomy Family History Father No problems noted. Mother Diabetes Cancer Social History Household Members Other:: granddaughter Housing: Apartment Are you a primary pediatric critical care nurse to a significant other at home: No Do you presently have visiting nurse or other home services: No Alcohol intake: former Patient Tobacco Use Status: Never used Tobacco e-Cigarette/Vaping Use: Never Used Second Hand Smoke Exposure: No Advance Directives Date on File: 08/18/23 service: No Current occupational status: disabled Current occupation: lt handed Cognitive needs: Yes Hearing needs: No Vision needs: No Review of Systems Const Reports as per HPI and Denies weakness ENT Reports Normal hearing present and Denies dizziness Card Reports as per HPI, Denies chest pain, Denies chest pain at rest, Denies chest pain with activity, Denies dyspnea and Denies dyspnea on exertion Resp Reports as per HPI, Denies cough, Denies dyspnea and Denies dyspnea on exertion GI Reports as per HPI, Denies abdominal pain, Denies nausea and Denies vomiting Musc Denies numbness Skin/Breast Reports as per HPI, Denies erythema and Denies wounds Neuro Reports Normal hearing present, Denies dizziness, Denies numbness, Denies Sensory deficit (Neuro) and Denies weakness Psych Reports no additional complaints Endo Reports no additional complaints Physical Exam Const General: healthy appearing and no acute distress Orientation/consciousness: patient oriented x3 HEENT Head: Yes normal to inspection Ears: hearing grossly normal bilaterally Mouth: Normal oral and palatal mucosa present Resp Effort & Inspection: normal respiratory effort and able to speak in complete sentences Auscultation: clear to auscultation bilaterally Cardio Jugular venous distension: no JVD Rate: regular rate Rhythm: regular rhythm Heart sounds: S1 normal heart sound present and S2 normal heart sound present Bruits: no abdominal aortic bruits, no carotid bruits, no femoral bruits and no renal bruits Peripheral pulses: Peripheral pulses 2+ throughout GI Inspection: Yes normal to inspection Palpation (GI): No Abdominal aortic bruit present Skin General skin exam: no rashes or lesions noted Wounds: no wounds Hair: normal Neuro General: patient oriented x3 Cranial nerves: Yes Normal hearing present Cognition (Neuro): normal cognition Gait exam (Neuro): Normal gait present Motor exam (neuro): 5/5 motor strength present throughout Sensory Exam: No Sensory deficit (Neuro) Extrem Other: Bilateral lower extremities: +2 pitting edema noted. No lymphorrhea noted today. + hyperkeratosis and hyperpigmentation. Erythematous discoloration noted circumferentially from the knee down to the feet. Faint but palpable DP pulses. CEAP: C - 4 E - primary A - superficial P - reflux Lymphedema measurements: Right in cm: Thigh 55 Knee 48 Calf 47 Ankle 31 Left in cm: Thigh 57 Knee 51 Calf 46 Ankle 30 General: Yes normal to inspection, Yes full ROM, Yes capillary refill normal and Yes normal gait Assessment & Plan Assessment & Plan (1) Varicose veins of both lower extremities with inflammation: Code(s): I83.11 - Varicose veins of right lower extremity with inflammation; I83.12 - Varicose veins of left lower extremity with inflammation Category: Medical Plan: Onur is presenting today on a referral from his PCP for ongoing bilateral lower extremity swelling, for the last 3-4m. He has been seen in the ER at [facility] 1m ago due to the legs getting more swollen and red and the daughter in law states his legs started weeping clear fluids. He has an echo as well as full cardiac workup and everything was negative. He has been on Lasix, which only decreased the swelling slightly. In short, the patient has evidence of venous insufficiency. I have discussed the pathophysiology with the patient. In addition I have provided informational material regarding venous disease to the patient. We have discussed conservative measures including compression, elevation, and exercise. We were unable to give him a handout, due to it being in Upper Sorbian but did discuss with the family about compression stockings. I have taken the liberty of ordering venous insufficiency testing with the patient. They will follow up with me after testing. The patient had an opportunity to ask questions regarding the treatment plan. All questions were answered. Imaging studies, laboratory studies and physical exam results were discussed and reviewed in detail. No major barriers to understanding were identified. The patient expressed understanding and agreement with the above treatment plan. The patient is aware they should contact our office by phone for worsening of the current condition or the appearance of new symptoms. Thank you for allowing me to participate in the vascular care of this patient. If you have any questions or concerns regarding the treatment for the above condition please do not hesitate to contact me. The office telephone contact is [phone]. This note is constructed using voice recognition software. While every effort has been made to ensure accuracy, retail account specialist errors may have been included. Thank you for allowing me to participate in the care of your patient. Yours sincerely, BELLO May (2) Lymphedema: Code(s): I89.0 - Lymphedema, not elsewhere classified Category: Medical Plan: Onur is presenting today for concerns from his PCP for ongoing bilateral swelling and discomfort. He has had some lymphorrhea, appx 1m ago. In short the patient has late onset lymphedema. The patient has been on conservative treatment for at least 3 months with minimal relief. Patient has tried 30 mm of mercury compression garments, elevation, exercise, healthy diet, and doing manual says self MLD to the best of their ability for over 4 weeks but with no significant relief. He has been compliant with the program but has provided minimal relief. In addition, on physical exam, we are noticing hyperpigmentation, lymphorrhea, and hyperplasia. It appears that he has stage 2 lymphedema. Patient has completed multiple forms of conservative therapy yet significant symptoms remain. Patient requires the use of a pneumatic compression device which we will assist in trying to have the patient obtain them. A pneumatic compression device will help reduce swelling and other lymphedema comorbidities. We will have him attend our lymphedema clinic in August. Thank you for allowing us to assist in this patient's care. Orders: Orders US venous duplex LE BI 1 Week I83.11 - Varicose veins of right lower extremity with inflammation, I83.12 - Varicose veins of left lower extremity with inflammation Coding Level of Care Code New Pt Level 4 (68496) Diagnoses Varicose veins of both lower extremities with inflammation I83.11; I83.12 Lymphedema I89.0
--- OUTSIDE RECORDS SUMMARY | 2024-06-18 11:30 | XMS_ITS | Referral Summary ---
Author Organization [facility] Address [address] [place] [address] Care Team Providers Care Supervisor Engraving Name Role Phone Susy Sylvester Primary Care Provider [phone] Encounters Date Type Department Care Team Description 06/05/2024 1:00 PM EDT Office Visit [facility] [address] [place] [address] [id number] Cristhian Ruff DO Parkinson's disease, unspecified whether dyskinesia present, unspecified whether manifestations fluctuate (Primary Dx) from Last 3 Months Allergies No known active allergies Medications meclizine (ANTIVERT) 25 mg tablet SMARTSI Tablet(s) By Mouth 3 Times Daily PRN 4 Active carbidopa-levo dopa (SINEMET) 25-100 mg per tablet Take 1 tablet by mouth 3 times daily. Active lisinopriL (PRINIVIL,ZEST RIL) 40 mg tablet 40 mg once a day. 3 Active Senna-S 8.6-50 mg SMARTSI Tablet(s) By Mouth Every Night 4 Active amLODIPine (NORVASC) 5 mg tablet SMARTSI Tablet(s) By Mouth Daily 4 Active fenofibrate (LOFIBRA) 54 mg tablet once a day. 4 Active clonazePAM (KlonoPIN) 0.5 mg tablet nightly. 4 Active atorvastatin (LIPITOR) 40 mg tablet Take 40 mg by mouth. Active Vitamin D3 25 mcg (1,000 unit) capsule SMARTSI Tablet(s) By Mouth Daily 4 Active furosemide (LASIX) 20 mg tablet SMARTSI Tablet(s) By Mouth Daily 4 Active pramipexole (MIRAPEX) 0.5 mg tablet once a day. 4 Active Gemtesa 75 mg tablet SMARTSI Tablet(s) By Mouth Daily 4 Active omeprazole (PriLOSEC) 20 mg capsule SMARTSI Capsule(s) By Mouth Every Morning 4 Active allopurinoL (ZYLOPRIM) 100 mg tablet 100 mg. Per pt take 100 mg 2 tablets daily 4 Active hydroCHLOROthi azide (HYDRODIURIL) 25 mg tablet SMARTSI Tablet(s) By Mouth Daily 4 Active metFORMIN ER (GLUCOPHAGE XR) 500 mg tablet 500 mg. 5 Active Myrbetriq 25 mg tablet Take 1 tablet by mouth once a day. Active carbidopa-levo dopa (SINEMET) 25-100 mg per tablet Take 2 tablets by mouth 3 times a day for 7 days, THEN 2.5 tablets 3 times a day for 7 days, THEN 3 tablets 3 times a day. 1175 tablet 5 10/18/19 25 Active pramipexole (MIRAPEX) 0.25 mg tablet Take 1 tablet (0.25 mg total) by mouth 3 times a day for 7 days, THEN 1 tablet (0.25 mg total) 2 (two) times a day for 7 days, THEN 1 tablet (0.25 mg total) once a day for 7 days. 42 tablet 5 06/27/19 25 Active zolpidem (AMBIEN) 5 mg tablet SMARTSI Tablet(s) By Mouth Every Night PRN 4 06/06/19 25 Discontinued carbidopa-levo dopa ER/CR (SINEMET ER/CR) 50-200 mg tablet 1 tablet. Per pt take 1 tablet 3 times daily 4 06/11/19 25 Discontinued Social History Tobacco Use Types Packs/Day Years [...] Sign Reading Time Taken Comments Blood Pressure 116/64 06/05/2024 11:51 AM EDT Pulse 90 06/05/2024 11:51 AM EDT Temperature 37.1 ??C (98.7 ??F) 06/05/2024 11:45 AM E DT Respiratory Rate 16 06/05/2024 11:45 AM EDT Oxygen Saturation 96% 06/05/2024 11:45 AM EDT Inhaled Oxygen Concentration - - Weight 112.5 kg (248 lb) 06/05/2024 11:45 AM EDT Height 172.7 cm (5' 8 ) 06/05/2024 11:45 AM EDT Body Mass Index 37.71 06/05/2024 11:45 AM EDT Plan of Treatment Upcoming Encounters Date Type Department Care Team (Late st Contact Info) Description 10/09/2024 1:00 PM EDT Office Visit [facility] [address] [place], [place] [phone] Cristhian Ruff DO [address] [place] [address] Insurance [facility] Member Subscriber Plan / Payer (Ef fective 2023-Present) Name:Onur Yarbrough Relation to Subscriber:Self Name:Onur Yarbrough Payer ID:[id number] Group ID:Not on file Type:Not on file Address: [address] [id number] MEDICARE Care Teams Supervisor Engraving Relationship Specialty Start Date End Date Susy Sylvester [address] [facility] [address] Oscar Moore, [place] [address] PCP - General Internal Medicine 06/14/23
--- OUTSIDE RECORDS SUMMARY | 2024-06-18 11:30 | XMS_ITS | Data Portability ---
Author Organization [facility] [id number] Address [address] [place] [address] Care Team Providers Care Imaging Analyst Name Role Phone [facility] Primary Care Provider [phone] Assessment No assessment recorded. Plan of Treatment Reminders Order Date Submit Date Provider Last Modified By Organization Details Last Modified Time Details Appointments None record ed. Lab None record ed. Referral None record ed. Procedures None record ed. Surgeries None record ed. Imaging XR, elbow, 3 or more view 023 03/27/19 [facility], [address] [place], [address], 17:46:19 XR, wrist, 3 or more view 023 03/27/19 [facility], [address] [place], [address], 3 17:45:16 Medication Orders None record ed. Patient TargetsNo targets recorded. Patient InstructionsNo instructions recorded. Reason for Referral None Reported. Results Created Date Observation Date Name Description Value Unit Range Abnormal Flag Note LastModifiedBy Organization Detail LastModifiedTime 03/27/19 23 03/27/2022 XR, wrist , 3 or more view No observ ation record ed. [email or web address] 1 [facility] [address] [place], [address], 03/27/2022 17:56:06 03/27/19 23 03/27/2022 XR, elbow , 3 or more view No observ ation record ed. [email or web address] 1 [facility] [address] [place], [address], 03/27/2022 17:56:07 Result Notes None recorded. Problems Name Problem SNOMED Code Status Onset Date Resolution Date Notes Provider Name and Address Organization Details Recorded Time Hypercholestero lemia 92956825 Active 2022 LES VERENICE null, [place] - [facility] 3 15:46:31 Hypertensive disorder 85628257 Active 2022 LES VERENICE null, [place] - [facility] 3 15:46:39 Parkinson's disease 28558409 Active 2022 LES VERENICE null, [place] - [...] completed [email or web address] [facility] [address] [place], [address], 03/27/2022 17:56:06 03/27/2022 XR, elbow, 3 or more view completed [email or web address] [facility] [address] [place], [address], 03/27/2022 17:56:07 Procedure Notes None recorded. Medical [...] Updated DateTime 3 172.72 cm 34.7 kg/m2 196704. 06 g 8 98 % 98 % [...] SNOMED-CT Code Diagnosis ICD10 Code Diagnosis Note [id number] [facility]O [facility] [address] [address] 03/27/2022 15:10:11 03/27/2022 17:36:55 Pain of left wrist 7163288972 52783 M25.532 No acute fracture of the wrist [...] week. Pain of le ft elbow joint 2833569429 9818814 M25.522 No acute fracture of the elbow noted on x-ray. Please follow up with primary care doctor to manage this and/or continue further workup if symptoms are not improving with conservati ve measures over the next week. You may take Tylenol for pain, ice, rest and keep it elevated. Osteoarthr itis of wrist 941788575 M19.039 Health Concerns Section Related Observation LastModified by Organization Detai ls LastModified Time None Recorded Concern Status LastModified by Organization Details LastModified Time None Recorded Advance Directives Directive None Recorded Payers Encounter Date Sequence Insurance Name Policy Number Policy Vargas Covered Member ID Vargas Member ID Guarantor Name 03/27/2022 1 [place] [employer] Onur Colon [id number] Onur Colon 03/27/2022 2 [place] [facility] Onur Colon [id number] Onur Colon Notes Date Note Type Note Provider Name and Address Organization Details Recorded Time 03/27/2022 text/html Onur is a 76 yo left handed male M with PMH of HTN, HLD, parkinson's, GERD, here for left hand swelling that radiates up to forearm x 4 days. Here with dixie who is assisting in translation of east timorese. She notes he has been avoiding using [...] Ramos, BELLO [address] [place], [address], [place] - [facility] 03/27/2022 17:32:52
--- OUTSIDE RECORDS SUMMARY | 2024-06-18 11:30 | XMS_ITS | Data Portability ---
Author Organization [place] - [facility], All[facility] Address [address] [place] [address] Assessment Encounter Date Assessment Date Assessment LastModified by Organization Details LastModified Time 10/30/2023 10/30/2023 78 year old Bolivian speaking male with a history of dementia [...] contra st 2023 024 [email or web address] [facility], [address] [place] [address], [phone], 4 11:35:27 CT, maxill ofacia l, w/o contra st 2023 024 [email or web address] [facility], [address] [place] [address], [phone], 4 10:11:43 Medication Orders doxycy maciel hyclat e 100 mg tablet 2023 [facility], [address] [place] [address], [id number], 4 10:36:41 flutic asone propio mynor 50 mcg/ac tuatio n nasal spray, suspen padmini 2023 [facility], [address] [place] [address], [id number], 4 14:57:14 Patient TargetsNo targets recorded. Patient InstructionsNo instructions recorded. Reason for Referral None Reported. Results Created Date Observation Date Name Description Value Unit Range Abnormal Flag Note LastModifiedBy Organization Detail LastModifiedTime 12/08/[address], sinus es, w/o contr ast No observ ation record ed. [email or web address] [facility] [address], [address], 12/08/2023 11:35:24 Result Notes None recorded. Problems Name Problem SNOMED Code Status Onset Date Resolution Date Notes Provider Name and Address Organization Details Recorded Time Nasal congestion 54670653 Active JAYSON SHIELDS MD [address] [place] [address], [phone], [facility] - [facility] 4 11:58:59 Chronic maxillary sinusitis 72982183 Active JAYSON SHIELDS MD [address] [facility], [place], [address], [place] - [facility] [place] 4 12:00:46 Chronic rhinitis 66290212 Active 024 JAYSON SHIELDS MD 100 [facility], [place], [address], [place] - [facility] [place] 4 12:01:02 Chronic sinusitis 87949288 Active 024 JAYSON SHIELDS MD 100 [facility], [place], [address], [place] - [facility] [place] 4 12:01:02 Polyp of nasal cavity 902126608 Active 024 JAYSON SHIELDS MD 100 [facility],[address], [place], [address], [place] - [facility] [place] 4 13:04:18 Parkinson's disease 84913540 Active 024 JAYSON SHIELDS MD [address] [facility], [place], [address], [place] - [facility] [place] 4 11:34:00 Impaired cognition 768542535 Active 024 JAYSON SHIELDS MD 100 [facility], [place], [address], [place] - [facility] 4 11:34:12 Problem Notes None recorded. Procedures Surgical History Date Name Laterality Status Provider Name and Address Organization Details Recorded Time 4 JMSNasal/Sinus Endoscopy completed JAYSON ALEXANDER MD [address], [address], [place] - [facility] 10/30/2023 12:04:04 Cataract Surgery completed Deny Blanca [place] - [facility] 10/30/2023 11:20:20 excision of basal cell carcinoma completed Deny Blanca [place] - [facility] 10/30/2023 11:20:58 Imaging Results Imaging Date Name Status LastModified by Organiz ation Details LastModified Time 12/08/2023 CT, sinuses, w/o contrast completed [email or web address] [facility] [address], [place], [address], 12/08/2023 11:35:24 Procedure Notes None recorded. Medical [...] Updated DateTime 10/30/2023 172.72 cm 32.8 kg/m2 84049.95 g Deny Blanca [place] - [facility] 10/30/2023 11:37:14 Social History None recorded. Functional Status None recorded. Mental Status None recorded. Family History Nothing Reported. Medical History No medical history recorded. Past Encounters Encounter ID Performer Location Encounter Start Date Encounter Closed Date Diagnosis/Indication Diagnosis SNOMED-CT Code Diagnosis ICD10 Code Diagnosis Note [id number] JAYSON BARRY MD [facility] [address] [address] 10/30/2023 11:00:35 10/30/2023 12:05:28 Nasal congestion 03606441 R09.81 Chronic ma xillary sinusitis 90396815 J32.0 Chronic rhinitis 5825520 6 J31.0 Polyp of nasal cavity 73 3213951 J33.0 [id number] JAYSON BARRY MD [facility] [address] [place] [address] 12/08/2023 10:32:17 12/08/2023 16:44:16 Chronic sinusitis 17066117 J32.9 Parkinson's disease 4904 9000 G20.A1 Impaired cognition 32095 6002 R41.89 Health Concerns Section Related Observation LastModified by Organization Detai ls LastModified Time None Recorded Concern Status LastModified by Organization Details LastModified Time None Recorded Advance Directives Directive None Recorded Payers Encounter Date Sequence Insurance Name Policy Number Policy Vargas Covered Member ID Vargas Member ID Guarantor Name 10/30/2023 2 [place] [employer] Onur Colon [id number] Onur Colon 10/30/2023 1 MEDICARE B-[place]: [facility] [employer] Onur Colon [id number] Onur Colon 12/08/2023 2 [place] Onur Colon [id number] Onur Colon 12/08/2023 1 [place] [employer] Onur Colon [id number] Onur Colon Notes Date Note Type [...] unfortunately did not improve his symptoms. His uqbefpmr-ht-azy and son help translate for him. JAYSON ALEXANDER MD [address], [address], [place] - [facility] 10/30/2023 13:04:39 12/08/2023 text/html Family notes kesha t patient feels improved following the antibiotics and nasal steroids. Previously noted to have incidental findings of polyps and hyperdense secretions.No other change in his history prior visit78 year old Bolivian speaking male with a history of dementia [...] given to family JAYSON ALEXANDER MD [address] [place] [address],[place] [address], [place], [address], [facility] - [facility] 12/08/2023 11:35:55
--- OUTSIDE RECORDS SUMMARY | 2024-06-18 11:30 | XMS_ITS | Encounter Summary ---
Author Organization [facility] Address [address] [place] [address] Care Team Providers Care Slate Cutter Operator Name Role Phone Susy Sylvester Primary Care Provider [phone] Encounter Details Date Type Department Care Team (Late st Contact Info) Description 12/21/2023 Orders Only [facility] Nuclear Medicine [address] [place] [address] Jake Angulo MD PhD [address] [place] [address] Social History Tobacco Use Types Packs/Day Years [...] Description 10/09/2024 1:00 PM EDT Office Visit [facility] [address] [place] [address] Cristhian Ruff DO [address] [place] [address] documented as of this encounter Visit Diagnoses Not on filedocumented in this encounter Care Teams Slate Cutter Operator Relationship Specialty Start Date End Date Susy Sylvester [address] [place] [address] dr Oscar Moore, [place] [address] PCP - General Internal Medicine 06/14/23 documented as of this encounter
--- OUTSIDE RECORDS SUMMARY | 2024-06-18 11:30 | XMS_ITS | Clinical Summary ---
Author Organization [facility] Facility Address [address] [place] [address], [place] [address] Care Team Providers Care Gift Basket Packer Name Role Phone Susy Sylvester MD Primary Care Provider [phone] Allergies No known active allergies Medications trihexyphenidyl [...] age to complete this topic Insurance [address] [place] [address] [place] Care Teams Gift Basket Packer Relationship Specialty Start Date End Date Susy Sylvester MD [address] [place], [place] PCP - General Internal Medicine 03/31/22
--- OUTSIDE RECORDS SUMMARY | 2024-06-18 11:30 | XMS_ITS | Clinical Summary ---
Author Organization [facility] Address [address] [place] [address] Care Team Providers Care Psychiatry Adult Physician Name Role Phone Susy Sylvester Primary Care Provider [phone] Allergies No known active allergies Medications meclizine [...] 3 times daily 4 06/11/19 25 Discontinued Encounters Date Type Department Care Team Description 06/05/2024 1:00 PM EDT Office Visit [facility] [address] [place] [address] Cristhian Ruff DO Parkinson's disease, unspecified whether dyskinesia present, unspecified whether manifestations fluctuate (Primary Dx) from Last 3 Months Social History Tobacco [...] Description 10/09/2024 1:00 PM EDT Office Visit [facility] [address] [id number] Cristhian Ruff DO [address] [place] [address] Health Maintenance Due Date Last Done Comments Hepatitis C Screening 1945 Medicare AWV 06/01/1946 Pneumococcal Vaccine: 50+ Years (1 of 1 - PCV) 06/01/1997 Zoster Vaccines (1 of 2) 06/01/1997 RSV Vaccine (60+ years old and patients) (1 - 1-dose 75+ series) 06/01/2022 COVID-19 Vaccine ( season) 2023 12/11/2021, 04/15/2021, 07/27/2020, Additional history exists Alcohol/Substance Use Screening 03/20/2024 Depression Screening and Follow-Up 03/20/2024 Health Care Proxy Review 03/20/2024 Social Drivers of Health Annual Screening 03/20/2024 Fall Risk Screening 06/05/2025 06/05/2024 DTaP,Tdap,and Td Vaccines (3 - Td or Tdap) 11/25/2030 11/25/2020, 04/20/2010 Tobacco Screening 03/20/2042 06/05/2024 Influenza Vaccine Completed 03/19/2024, , 12/21/2021, Additional history exists Hepatitis B Vaccines Aged Out No long er eligible based on patient's age [id number] [facility] MEDICARE Care Teams Psychiatry Adult Physician Relationship Specialty Start Date End Date Susy Sylvester [address] [place] [address] [place] [id number] PCP - General Internal Medicine 06/14/23
--- OUTSIDE RECORDS SUMMARY | 2024-06-18 11:30 | XMS_ITS | Encounter Summary ---
Author Organization [facility] Address [address] [place] [address] Care Team Providers Care Retail Account Representative Name Role Phone Susy Sylvester Primary Care Provider [phone] Reason for Visit * Consultation (Routine) - Authorized Specialty Diagnoses / Procedures Referred By Maite kelley Referred To Contact Neurology Diagnoses Parkinson's Disease Procedures NEW MOVEMENT Cristhain Ruff DO Phone: tel: fax: Referral ID Status Reason Start Date Expiration Date V isits Requested Visits Authorized [id number] Authorized 12/20/2023 06/20/2025 6 6 Encounter Details Date Type Department Care Team (Latest Contact Info) Description 06/05/2024 1:00 PM EDT Office Visit [facility] [address] [place] [address] Cristhian Ruff DO [address] [place] [address] Parkinson's disease, unspecified whether dyskinesia present, unspecified whether manifestations fluctuate (Primary Dx) Social History Tobacco Use Types Packs/Day Years [...] on file documented as of this encounter Last Filed Vital Signs Vital Sign Reading [...] Mass Index 37.71 06/05/2024 11:45 AM EDT documented in this encounter Progress Notes * Akua Maharaj MD - 06/14/2024 11:29 AM EDT I saw and evaluated the patient. Case discussed with the resident/fellow and I agree with the findings and plan as documented in the resident's/fellow's note. Patient with PD and dementia. Recommend cross taper of dopamine agonist--wean off pramipexole whileincreasing levodopa. * Cristhian Ruff DO - 06/05/2024 1:22 PM EDT Images from the original note were not included. NEUROLOGY CLINIC NOTE DATE OF SERVICE: 06/10/2024 We had the pleasure of seeing Onur Rivas today in our neurology clinic for follow up of parkinson's disease. HISTORY OF PRESENT ILLNESS: Onur Rivas is a 78 y.o. left handed man with a relevant past medical history of hypertension, hyperlipidemia, gastroesophageal reflux disease, chronic kidney disease, Sacroilitis, low back pain, parkinsons disease, dementia. Patient, son, [id number] present to the movement neurology clinic requesting second opinion regarding patient's Parkinson's disease. Family is not satisfied withthe patient's previous neurology care. Patient was previously seen by vascular neurologist Dr. Kelvin Jacob MD for over a decade (notes scanned into media). Patient's primary care doctor is Susy Harrington MD. Family's expectations are to help treat patient's Parkinson's disorder. Acc ording to family patient has had Parkinson's disease for the past 18 years. Patient's shaking has worsened over the past 3 years. They state that his symptoms are stiffness, shaking, increasingly hunched posture. They state that the shaking started with the right hand and now the left hand is shaking more than the right hand. The shaking is worse when standing. Patient himself is worried about shaking. Patient's problems with dementia include escaping, wandering, getting lost outside. At one point patient was experiencing auditory and visual hallucinations which were alleviated by an unspecified medication which was started. Regarding patient's Parkinson's medications, patient is currently taking Carbidopa levodopa and Pramipexole. Patient previously took Trihexylphenidyl 0.5mg PO. Of note, patient's sleep regimen includes Clonazepam 0.5mg and Zolpidem 5mg (discontinued). Family states that he is on clonazepam because of his eloping behavior. Movement neurology clinic follow up with Dr. Ruff and Dr. Maharaj 06/05/24: Patient was hospitalized for about 3 days one month ago at [facility] in [place]. Stopped amlodipine and torsemide due to peripheral edema, started on furosemide. Echocardiogram reportedly normal per family. Family is here to discuss datscan results and management options for parkinsons. Current meds 06/05/24: Allopurinol 100mg BID Vit d3 1000iu q2d Fenofibrate 54mg q2d Metformin 500mg daily Lisinopril 40mg daily Furosemide 20mg daily Omeprazole 20 daily Carbidopa levodopa IR 25-100mg 2 tablets PO TID Pramipexole 0.5mg PO 3 times a day Atorvastatin 40mg at bedtime Clonazepam 0.5mg at bedtime Trazodone 50mg at bedtime REVIEW OF SYSTEMS: 12 point review of systems was asked and was negative except as noted above in HPI. PAST MEDICAL HISTORY: History reviewed. No pertinent past medical history. SOCIAL HISTORY: Social History[1] ALLERGIES: No Known Allergies MEDICATIONS: Current Outpatient Medications: allopurinoL (ZYLOPRIM) 100 mg tablet, 100 mg. Per pt take 100 mg 2 tablets daily, Disp: , Rfl: amLODIPine (NORVASC) 5 mg tablet, SMARTSI Tablet(s) By Mouth Daily, Disp: , Rfl: atorvastatin (LIPITOR) 40 mg tablet, Take 40 mg by mouth., Disp: , Rfl: carbidopa-levodopa (SINEMET) 25-100 mg per tablet, Take 1 tablet by mouth 3 times daily., Disp: , Rfl: carbidopa-levodopa (SINEMET) 25-100 mg per tablet, Take 2 tablets by mouth 3 times a day for 7 days, THEN 2.5 tablets 3 times a day for 7 days, THEN 3 tablets 3 times a day., Disp: 1175 tablet, Rfl: 0 carbidopa-levodopa ER/CR (SINEMET ER/CR) 50-200 mg tablet, 1 tablet. Per pt take 1 tablet 3 times daily, Disp: , Rfl: clonazePAM (KlonoPIN) 0.5 mg tablet, nightly., Disp: , Rfl: fenofibrate (LOFIBRA) 54 mg tablet, once a day., Disp: , Rfl: furosemide (LASIX) 20 mg tablet, SMARTSI Tablet(s) By Mouth Daily, Disp: , Rfl: Gemtesa 75 mg tablet, SMARTSI Tablet(s) By Mouth Daily, Disp: , Rfl: hydroCHLOROthiazide (HYDRODIURIL) 25 mg tablet, SMARTSI Tablet(s) By Mouth Daily, Disp: , Rfl: lisinopriL (PRINIVIL,ZESTRIL) 40 mg tablet, 40 mg once a day., Disp: , Rfl: meclizine (ANTIVERT) 25 mg tablet, SMARTSI Tablet(s) By Mouth 3 Times Daily PRN, Disp: , Rfl: metFORMIN ER (GLUCOPHAGE XR) 500 mg tablet, 500 mg., Disp: , Rfl: Myrbetriq 25 mg tablet, Take 1 tablet by mouth once a day., Disp: , Rfl: omeprazole (PriLOSEC) 20 mg capsule, SMARTSI Capsule(s) By Mouth Every Morning, Disp: , Rfl: pramipexole (MIRAPEX) 0.25 mg tablet, Take 1 tablet (0.25 mg total) by mouth 3 times a day for 7 days, THEN 1 tablet (0.25 mg total) 2 (two) times a day for 7 days, THEN 1 tablet (0.25 mg total) oncea day for 7 days., Disp: 42 tablet, Rfl: 0 pramipexole (MIRAPEX) 0.5 mg tablet, once a day., Disp: , Rfl: Senna-S 8.6-50 mg, SMARTSI Tablet(s) By Mouth Every Night, Disp: , Rfl: Vitamin D3 25 mcg (1,000 unit) capsule, SMARTSI Tablet(s) By Mouth Daily, Disp: , Rfl: FAMILY HISTORY: No family history on file. OBJECTIVE: Vitals: 06/05/24 1151 BP: 116/64 Pulse: 90 Resp: Temp: SpO2: General: Sitting in chair. No acute distress. Appears stated age. HEENT: Normocephalic and atraumatic. Good dentition. No tongue lesions. Mental Status: Patient is alert. Patient is oriented to state, day, year, situation, person, place,city, country, month, date. Can follow simple commands. Minimal participation in history. Speech: Ukrainian-speaking, speech is intact. Cranial Nerves: CN I: Not tested. CN II: Not tested. CN III, IV, : Pupils 3 mm and reactive to light bilaterally, extraocular movements full bilaterally without provocation of diplopia, pain, or nystagmus. Normal saccades. No ptosis noted. CN V: Facial sensation is intact to light touch in all 3 trigeminal divisions bilaterally, muscles of mastication strength intact bilaterally. CN VII: Face is symmetric with normal eye closure, eyebrow raise and depression, cheek puffing, andsmile. No asymmetry of the nasolabial folds. CN VIII: Hearing intact bilaterally to rubbing fingers. CN IX, X: Palate and uvula elevate symmetrically, phonation is normal. CN XI: Head turning and shoulder shrug intact with full strength. CN XII: Tongue protrudes midline and with normal lateral movements, no atrophy or fasciculations. Motor: Flat facial expression. Paratonia. Cogwheeling rigidity of bilateral upper extremities normal muscle bulk. No pronator drift. Significant tremoring of hands right greater than left. Nonrhythmic tremoring, various tremor movements. R L Shoulder abduction: 5/5 5/5 Elbow extension: 5/5 5/5 Elbow flexion: 5/5 5/5 Finger extension: 5/5 5/5 Hand legal contracts specialist / finger flexion: 5/5 5/5 Hip flexion: 5/5 5/5 Hip extension: 07/22 07/22 Knee extension: 07/22 07/22 Knee flexion: 07/22 07/22 Foot dorsiflexion: 07/22 07/22 Foot plantarflexion: 07/22 07/22 Coordination: No dysmetria on [id number] bilaterally. Bkmi-ch-[id number] normal bilaterally. Sensation: Symmetric to light touch in upper and lower extremities bilaterally. Reflexes: R L Biceps DTR (C5): 2+ 2+ Brachioradialis DTR (C6): 2+ 2+ Triceps DTR (C7): 2+ 2+ Patellar DTR (L4): 2+ 2+ Achilles DTR (S1): 2+ 2+ Ortiz sign: (-) (-) Babinski sign: down down Gait: Able to stand from bed / chair without assistance, kyphotic posture, normal stance, decreasedstride length, reduced arm swing, normal turn. Romberg negative. Swirls 12/20/23: Swirls 06/05/24: LABS: 05/08/2023: BUN/creatinine 23/1.11, random glucose 122 NEUROLOGICAL IMAGING: Noncontrast CT head 09/2020: mild cerebral volume loss. Ethmoid sinus and bilateral maxillary sinus mucosal thickening. No CT evidence of acute intracranial hemorrhage or edematous territorial infarction. No available brain MRI. 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 NEUROLOGICAL PROCEDURES: None to review. CARDIOVASCULAR TESTING: None to review. ASSESSMENT: Onur Rivas is a 79 Ukrainian-speaking gentleman who presents to the movement neurology clinicwith his family for second opinion regarding his tremors. Patient's presentation is mixed as includes components of both essential tremor and Parkinson's disease, given his physical examination and re cent DaTscan confirming Parkinson's disease. Patient will require further management of his Parkinson's medications. Patient's pramipexole is likely contributing to his peripheral edema, and patient's mental orientation has significantly improved since prior visit (this may be attributed to disconti nuation of zolpidem or some other factor). Patient to continue following in movement clinic. PLAN: -Taper off of pramipexole: - Pramipexole 0.25mg 3 times a day 1 week followed by - Pramipexole 0.25mg 2 times a day 1 week followed by - Pramipexole 0.25mg 1 times a day 1 week followed by discontinuation - Increase sinement: - Sinemet 25-100mg 2.5 tablets TID for one week followed by - Sinemet 25-100mg 3 tablets 3 times a day - May initiate propranolol for essential tremor during next visit, may have to go down on lisinopril (or other blood pressure medication) to accommodate for propranolol - Recommended to family to purchase and utilize large/heavy utensils for patient to use, showed patient's family options on [employer]. - Recommended to family to provide reorientation regarding time and location frequently - Follow up in 4 months in movement clinic This case was discussed with Dr. Akua Maharaj, movement neurology attending of record on 06/10/24 This note was created with the use of voice translation software; although reviewed for medical accuracy, please excuse any minor errors that may still be present. Please do not hesitate to contactme if you need any further information. Cristhian Ruff, DO PGY-2 Neurology Resident Physician [facility], [facility] Work Pager: [phone] Overnight (4pm-7am) please page [phone]) A Note About Physician Documentation: If you are the patient referred to in this chart and are reviewing your medical notes, please note that medical documentation is often written with abbreviations and medical terminology. Physician documentation is typically written by physicians for other physicians to review in order to document ev ents, tests that were ordered/interpreted, and resulting diagnoses in the most efficient and effective ways possible. These notes are made available for patients to review but are not specifically written with patient consumption in mind. Please review your After Visit Summary (AVS) and Discharge Instructions if you have questions. [1] Social History Socioeconomic History Marital status: Spouse name: Not on file Number of children: Not on file Years of education: Not on file Highest education level: Not on file Occupational History Not on file Tobacco Use Smoking status: Never Smokeless tobacco: Never Vaping Use Vaping status: Never Used Substance and Sexual Activity Alcohol use: Never Drug use: Never Sexual activity: Not on file Other Topics Concern Not on file Social History Narrative Not on file documented in this encounter Plan of Treatment Upcoming Encounters Date Type Department Care Team (Late st Contact Info) Description 10/09/2024 1:00 PM EDT Office Visit [facility] [address] [place] [address] Cristhian Ruff DO [address] [place] [address] documented as of this encounter Visit Diagnoses Diagnosis Parkinson's disease, unspecified whether dyskinesia present, unspecified whether manifestations fluctuate (HCC)- Primary documented in this encounter Care Teams Retail Account Representative Relationship Specialty Start Date End Date Susy Sylvester [address] [place] [address] [place] [address] PCP - General Internal Medicine 06/14/23 documented as of this encounter
== END 2024-06-18 10:29 | disposition home or self-care (01) ==
LOC: HO.HVS 09:50
PROVIDERS: PCP Internal Medicine; Visit Provider Physician Assistant Surgical
DX: I83.11 Varicose veins of right lower extremity with inflammation (principal); I83.12 Varicose veins of left lower extremity with inflammation; I89.0 Lymphedema, not elsewhere classified
CPT/HCPCS: 99204

== ENCOUNTER → 2024-06-18 09:49 | Outpatient (BNVA) | payer MEDICARE, MEDICAID, SELFPAY | PROVIDERS: PCP Internal Medicine; Visit Provider Physician Assistant Surgical | DX: I83.11 Varicose veins of right lower extremity with inflammation (principal); I83.12 Varicose veins of left lower extremity with inflammation; I89.0 Lymphedema, not elsewhere classified | CPT/HCPCS: 99202 ==

== ENCOUNTER 2024-07-01 00:46 | Emergency (ER) | payer MEDICARE, MEDICAID, SELFPAY ==
--- NOTE | ~2024-07-01 | CT_ITS ---
CLINICAL HISTORY: Left lower quadrant pain CT abdomen and pelvis without contrast Comparison: CR/SR - XR PELVIS 1-2V - 07/31/21 07:59 EDT Findings: Mild motion artifact present. No consolidation or effusion. Coronary artery calcifications are present. The gallbladder and solid organs are within normal limits given the motion limitations. No renal stones. No hydronephrosis or hydroureter. No bowel obstruction, pneumoperitoneum, or pneumatosis. There is colonic diverticulosis without CT evidence for acute diverticulitis. Tiny umbilical hernia containing fat and a partial loop of nondilated small bowel. A normal prostate gland is not clearly identified, possibly surgically absent. Tiny, fat containing bilateral inguinal hernias are present. No bladder wall thickening. Normal appendix. The bones are intact. IMPRESSION: 1. Mildly motion limited examination. No acute inflammatory process identified within the abdomen or pelvis. 2. Colonic diverticulosis. No CT evidence for acute diverticulitis. This document has been electronically signed by: Kenn Levine MD on 07/01/2024 03:04:48
[2024-07-01 00:49] VITALS: BP 160/90; PULSE 80; RESP 16; TEMP 37.1; O2SAT 96; BMI 36.5
--- OUTSIDE RECORDS SUMMARY | 2024-07-01 01:09 | XMS_ITS | Encounter Summary ---
Author Organization [employer] [facility] Address [address] [place] [address] Care Team Providers Care Funeral Arranger Name Role Phone Rochelle Mckeon MD Primary Care Provider Un available Community, Pcp Primary Care Provider Unavailabl e Encounter Details Date Type Department Care Team Description 09/12/2017 Dry Plasterer Helper Report Medical Records [address] [place] [address] Kelvin Jacob MD Social History Tobacco Use [...] on filedocumented in this encounter Care Teams Funeral Arranger Relationship Specialty Start Date End Date Rochelle Mckeon MD PCP - General Internal Medicine 10/10/1603/01 Community, Pcp PCP - General Internal Medicine 03/02/21 documented as of this encounter
--- OUTSIDE RECORDS SUMMARY | 2024-07-01 01:09 | XMS_ITS | Encounter Summary ---
Author Organization [facility] Address [address] [place] [address] Care Team Providers Care Asbestos Hazard Abatement Worker Name Role Phone Susy Sylvester Primary Care Provider [phone] Encounter Details Date Type Department Care Team (Late st Contact Info) Description 12/21/2023 Orders Only [facility] Nuclear Medicine [address] [place] [address] Jake Angulo MD PhD [address] [place] [address] Social History Tobacco Use Types Packs/Day Years [...] Description 10/09/2024 1:00 PM EDT Office Visit [facility]rology Clinic [address] [place] [address] Cristhian Ruff DO [address] [place] [address] documented as of this encounter Visit Diagnoses Not on filedocumented in this encounter Care Teams Asbestos Hazard Abatement Worker Relationship Specialty Start Date End Date Susy Sylvester [address] [place] [address] dr Oscar Moore, [place] [address] PCP - General Internal Medicine 06/14/23 documented as of this encounter
--- OUTSIDE RECORDS SUMMARY | 2024-07-01 01:09 | XMS_ITS | Encounter Summary ---
Author Organization [email or web address] [facility] Address [address] [place] [address] Care Team Providers Care Slot Host Name Role Phone Rochelle Mckeon MD Primary Care Provider Un available Community, Pcp Primary Care Provider Unavailabl e Encounter Details Date Type Department Care Team Description 09/27/2018 Certified Caregiver Report Medical Records [address] [place] [address] Kelvin Jacob MD Social History Tobacco Use [...] on filedocumented in this encounter Care Teams Slot Host Relationship Specialty Start Date End Date Rochelle Mckeon MD PCP - General Internal Medicine 10/10/1603/01 Community, Pcp PCP - General Internal Medicine 03/02/21 documented as of this encounter
--- OUTSIDE RECORDS SUMMARY | 2024-07-01 01:09 | XMS_ITS | Referral Summary ---
Author Organization [facility] Address [address] [place] [address] Care Team Providers Care Yarn Texture Machine Operator Name Role Phone Susy Sylvester Primary Care Provider [phone] Encounters Date Type Department Care Team Description 06/05/2024 1:00 PM EDT Office Visit [facility] Clinic [address] [place] [id number] Cristhian Ruff DO Parkinson's disease, unspecified whether [...] day. 1175 tablet 5 10/18/19 25 Active zolpidem (AMBIEN) 5 mg tablet SMARTSI Tablet(s) By Mouth Every Night PRN 4 06/06/19 25 Discontinued carbidopa-levo dopa ER/CR (SINEMET ER/CR) 50-200 mg tablet 1 tablet. Per pt take 1 tablet 3 times daily 4 06/11/19 25 Discontinued pramipexole (MIRAPEX) 0.25 mg tablet Take 1 tablet (0.25 mg total) by mouth 3 times a day for 7 days, THEN 1 tablet (0.25 mg total) 2 (two) times a day for 7 days, THEN 1 tablet (0.25 mg total) once a day for 7 days. 42 tablet 5 06/27/19 25 Social History Tobacco Use Types Packs/Day Years [...] Description 10/09/2024 1:00 PM EDT Office Visit [facility] Clinic [address] [place], [place] [phone] Cristhian Ruff DO [address] [place] [address] Insurance [facility] Member Subscriber Plan / Payer (Ef fective 2023-Present) Name:Onur Yarbrough Relation to Subscriber:Self Name:Onur Yarbrough Payer ID:[id number] Group ID:Not on file Type:Not on file Address: [address] [id number] MEDICARE Care Teams Yarn Texture Machine Operator Relationship Specialty Start Date End Date Susy Sylvester [address] [facility] [place] [address] PCP - General Internal Medicine 06/14/23
--- OUTSIDE RECORDS SUMMARY | 2024-07-01 01:09 | XMS_ITS | Clinical Summary ---
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/08/2022): adenocarcinoma 2010 Immunizations Immunization Administration Dates Next Due Influenza Split High [...] Due Date Last Done Comments Pneumococcal Vaccine: 50+ Ye ars (1 of 2 - PCV) 06[birth year]01/1964 Influenza Vaccine (Season Ended) 2024 12/03/19 17 Hepatitis B Vaccine Aged Out No longe r eligible based on patient's age to complete this topic Insurance [address] [place] [id number] Medicaid ID Medicare Medicaid ID Medicare Care Teams Roll Or Tape Edge Machine Operator Relationship Specialty Start Date End Date Susy Sylvester MD [address] [place], [place] PCP - General Internal Medicine 03/31/22
--- OUTSIDE RECORDS SUMMARY | 2024-07-01 01:09 | XMS_ITS | Clinical Summary ---
Author Organization [facility] Address [address] [place] [address] Care Team Providers Care Machine Tool Mechanic Name Role Phone Susy Sylvester Primary Care Provider [phone] Allergies No known active allergies Medications meclizine [...] 7 days. 42 tablet 5 06/27/19 25 Encounters Date Type Department Care Team Description 06/05/2024 1:00 PM EDT Office Visit [facility] [address] [place] [address] Cristhian Ruff DO Parkinson's disease, unspecified whether [...] Description 10/09/2024 1:00 PM EDT Office Visit [facility] [address] [phone] Cristhian Ruff DO [address] [place] [address] Health Maintenance Due Date Last Done Comments [...] patient[place] this [id number] [facility] MEDICARE Care Teams Machine Tool Mechanic Relationship Specialty Start Date End Date Susy Sylvester [address] [place] [address] [place] [id number] PCP - General Internal Medicine 06/14/23
--- OUTSIDE RECORDS SUMMARY | 2024-07-01 01:09 | XMS_ITS | Data Portability ---
Author Organization [place] - [facility], Allergy Address [address] [place] [phone] Assessment Encounter Date Assessment Date Assessment LastModified by Organization Details LastModified Time 10/30/2023 10/30/2023 78 year old Nepali speaking male with a history of dementia [...] contra st 2023 024 [email or web address] [facility] Of [facility], [address] [place] [address], [id number], 4 11:35:27 CT, maxill ofacia l, w/o contra st 2023 024 [email or web address] [facility] Of [facility], [address] [place] [address], [phone], 4 10:11:43 Medication Orders doxycy maciel hyclat e 100 mg tablet 2023 [facility], [address] [place] [address], [id number], 4 10:36:41 flutic asone propio mynor 50 mcg/ac tuatio n nasal spray, suspen padmini 2023 [facility], [address] [place] [address], [id number], 4 14:57:14 Patient TargetsNo targets recorded. Patient InstructionsNo instructions recorded. Reason for Referral None Reported. Results Created Date Observation Date Name Description Value Unit Range Abnormal Flag Note LastModifiedBy Organization Detail LastModifiedTime 12/08/[address], sinus es, w/o contr ast No observ ation record ed. [email or web address] [facility] Of [address], [address], 12/08/2023 11:35:24 Result Notes None recorded. Problems Name Problem SNOMED Code Status Onset Date Resolution Date Notes Provider Name and Address Organization Details Recorded Time Nasal congestion 48860141 Active JAYSON SHIELDS MD [address] [place] [address], [phone], [facility] - [facility] 4 11:58:59 Chronic maxillary sinusitis 20408834 Active JAYSON SHIELDS MD [address] [facility],[address], [place], [address], [place] - [facility] 4 12:00:46 Chronic rhinitis 49407989 Active 024 JAYSON SHIELDS MD [facility] [place], [place], [address], [place] - [facility] 4 12:01:02 Chronic sinusitis 57028723 Active 024 JAYSON SHIELDS MD [address] [facility] [place], [place], [address], [place] - [facility] 4 12:01:02 Polyp of nasal cavity 383017884 Active 024 JAYSON SHIELDS MD [address] [facility],[address], [place], [address], [place] - [facility] 4 13:04:18 Parkinson's disease 54592106 Active 024 JAYSON SHIELDS MD 100 [facility], [place], [address], [place] - [facility] 4 11:34:00 Impaired cognition 573727118 Active 024 JAYSON SHIELDS MD 100 [facility], [place], [address], [place] - [facility] 4 11:34:12 Problem Notes None recorded. Procedures Surgical History Date Name Laterality Status Provider Name and Address Organization Details Recorded Time 4 JMSNasal/Sinus Endoscopy completed JAYSON ALEXANDER MD [address], [address], [place] - [facility] 10/30/2023 12:04:04 Cataract Surgery completed Deny Blanca [place] - [facility] 10/30/2023 11:20:20 excision of basal cell carcinoma completed Deny Blanca [place] - [facility] 10/30/2023 11:20:58 Imaging Results Imaging Date Name Status LastModified by Organiz ation Details LastModified Time 12/08/2023 CT, sinuses, w/o contrast completed [email or web address] [facility] Of [address], [place], [address], 12/08/2023 11:35:24 Procedure Notes None recorded. Medical [...] Updated DateTime 10/30/2023 172.72 cm 32.8 kg/m2 46478.95 g Deny Blanca [place] - [facility] 10/30/2023 11:37:14 Social History None recorded. Functional Status None recorded. Mental Status None recorded. Family History Nothing Reported. Medical History No medical history recorded. Past Encounters Encounter ID Performer Location Encounter Start Date Encounter Closed Date Diagnosis/Indication Diagnosis SNOMED-CT Code Diagnosis ICD10 Code Diagnosis Note [id number] JAYSON BARRY MD [facility] [address] [address] 10/30/2023 11:00:35 10/30/2023 12:05:28 Nasal congestion 11259644 R09.81 Chronic [place] xillary sinusitis 43999961 J32.0 Chronic rhinitis 9229614 6 J31.0 Polyp of nasal cavity 73 7191310 J33.0 [id number] JAYSON BARRY MD [facility] [address] [place] [address] 12/08/2023 10:32:17 12/08/2023 16:44:16 Chronic sinusitis 53832005 J32.9 Parkinson's disease 4904 9000 G20.A1 Impaired cognition 95825 6002 R41.89 Health Concerns Section Related Observation LastModified by Organization Detai ls LastModified Time None Recorded Concern Status LastModified by Organization Details LastModified Time None Recorded Advance Directives Directive None Recorded Payers Encounter Date Sequence Insurance Name Policy Number Policy Vargas Covered Member ID Vargas Member ID Guarantor Name 10/30/2023 2 [place] Onur Colon [id number] Onur Colon 10/30/2023 1 MEDICARE B-[place]: [facility] [employer] Onur Colon [id number] Onur Colon 12/08/2023 2 [place] Onur Colon [id number] Onur Colon 12/08/2023 1 [place] [employer] Onur Colon [id number] Onur Colon Notes Date Note Type [...] unfortunately did not improve his symptoms. His [id number] and son help translate for him. JAYSON ALEXANDER MD [address], [address], [place] - [facility] 10/30/2023 13:04:39 12/08/2023 text/html Family notes kesha t patient feels improved following the antibiotics and nasal steroids. Previously noted to have incidental findings of polyps and hyperdense secretions.No other change in his history prior visit78 year old Nepali speaking male with a history of dementia [...] surgery given to family JAYSON ALEXANDER MD [address] [place] [address],[place] [address], [place], [address], [facility] - [facility] 12/08/2023 11:35:55
--- OUTSIDE RECORDS SUMMARY | 2024-07-01 01:09 | XMS_ITS | Data Portability ---
Author Organization [facility]LLO [facility] [address] Address [address] [place] [address] Care Team Providers Care Sign Language Translator Name Role Phone [facility] Primary Care Provider Assessment No assessment recorded. Plan of Treatment Reminders Order Date Submit Date Provider Last Modified By Organization Details Last Modified Time Details Appointments None record ed. Lab None record ed. Referral None record ed. Procedures None record ed. Surgeries None record ed. Imaging XR, elbow, 3 or more view 023 03/27/19 [facility], [address] [place], [address], 17:46:19 XR, wrist, 3 or more view 023 03/27/19 [facility], [address] [place], [address], 3 17:45:16 Medication Orders None record ed. Patient TargetsNo targets recorded. Patient InstructionsNo instructions recorded. Reason for Referral None Reported. Results Created Date Observation Date Name Description Value Unit Range Abnormal Flag Note LastModifiedBy Organization Detail LastModifiedTime 03/27/19 23 03/27/2022 XR, wrist , 3 or more view No observ ation record ed. [email or web address] 1 [facility] [address] [place], [address], 03/27/2022 17:56:06 03/27/19 23 03/27/2022 XR, elbow , 3 or more view No observ ation record ed. [email or web address] 1 [facility] [address] [place], [address], 03/27/2022 17:56:07 Result Notes None recorded. Problems Name Problem SNOMED Code Status Onset Date Resolution Date Notes Provider Name and Address Organization Details Recorded Time Hypercholestero lemia 15707519 Active 2022 LES VERENICE null, [place] - [facility] 3 15:46:31 Hypertensive disorder 35670588 Active 2022 LES VERENICE null, [place] - [facility] 3 15:46:39 Parkinson's disease 51500963 Active 2022 LES VERENICE null, [place] - [...] completed [email or web address] [facility] [address] [place], [address], 03/27/2022 17:56:06 03/27/2022 XR, elbow, 3 or more view completed [email or web address] [facility] [address] [place], [address], 03/27/2022 17:56:07 Procedure Notes None recorded. Medical [...] Updated DateTime 3 172.72 cm 34.7 kg/m2 894268. 06 g 8 98 % 98 % [...] SNOMED-CT Code Diagnosis ICD10 Code Diagnosis Note [id number] [facility]O ROONEY [address] [address] 03/27/2022 15:10:11 03/27/2022 17:36:55 Pain of left wrist [id number] 60704 M25.532 No acute fracture of the wrist [...] week. Pain of le ft elbow joint 0804680366 8428756 M25.522 No acute fracture of the elbow noted on x-ray. Please follow up with primary care doctor to manage this and/or continue further workup if symptoms are not improving with conservati ve measures over the next week. You may take Tylenol for pain, ice, rest and keep it elevated. Osteoarthr itis of wrist 773111550 M19.039 Health Concerns Section Related Observation LastModified by Organization Detai ls LastModified Time None Recorded Concern Status LastModified by Organization Details LastModified Time None Recorded Advance Directives Directive None Recorded Payers Encounter Date Sequence Insurance Name Policy Number Policy Vargas Covered Member ID Vargas Member ID Guarantor Name 03/27/2022 1 [place] [employer] Onru Colon [id number] Onur Colon 03/27/2022 2 [place] Onur Colon [id number] Onur Colon Notes Date Note Type Note Provider Name and Address Organization Details Recorded Time 03/27/2022 text/html Onur is a 76 yo left handed male M with PMH of HTN, HLD, parkinson's, GERD, here for left hand swelling that radiates up to forearm x 4 days. Here with dixie who is assisting in translation of yoruba. She notes he has been avoiding using [...] Ramos, BELLO [address] [place], [address], [place] - [facility] 03/27/2022 17:32:52
--- OUTSIDE RECORDS SUMMARY | 2024-07-01 01:09 | XMS_ITS | Encounter Summary ---
Author Organization [facility] Address [address] [place] [address] Care Team Providers Care Zipper Machine Operator Name Role Phone Rochelle Mckeon MD Primary Care Provider Un available Community, Pcp Primary Care Provider Unavailabl e Encounter Details Date Type Department Care Team Description 12/06/2016 Release of Information Medical Records [address] [place] [id number] Abstract, Provider Social History Tobacco Use Types Packs/Day Years Used Date Smoking Tobacco: Never Sex Assigned at Date Recorded Not on file documented as of this encounter Plan of Treatment Not on file documented as of this encounter Visit Diagnoses Not on filedocumented in this encounter Care Teams Zipper Machine Operator Relationship Specialty Start Date End Date Rochelle Mckeon MD PCP - General Internal Medicine 10/10/1603/01 Community, Pcp PCP - General Internal Medicine 03/02/21 documented as of this encounter
--- NOTE | 2024-07-01 01:26 | ED_ITS ---
HPI - Abdominal Pain General Chief Complaint: Abdominal Pain Stated Complaint: left abdominal pain Time Seen by Provider: 07/01/24 01:26 Source: patient Mode of arrival: ambulatory Limitations: no limitations History of Present Illness ED Provider: HPI narrative: Patient's history of Parkinson disease hypertension comes here for left lower abdominal pain for last 3 days also has small umbilical hernia no fever no chills does have history of constipation last bowel movement was yesterday does have slight nausea no vomiting no fever no chills no blood in his stool Related Data Home Medications ?Medication ?Instructions ?Recorded ?Confirmed zolpidem 5 mg tablet 5 mg PO BEDTIME 05/24/24 06/06/24 furosemide 20 mg tablet (Lasix) 20 mg PO BID PRN 06/06/24 06/06/24 Previous Rx's ?Medication ?Instructions ?Recorded acetaminophen 500 mg tablet 500 mg PO Q6H PRN pain #30 tabs 09/07/21 diclofenac sodium 1 % topical gel 2 g topical QID PRN Arthritis pain 10/16/23 (Voltaren Arthritis Pain) 30 days #100 grams adult diapers pull-ups #240 ea 11/22/23 underpads (Bed Underpads) #240 ea 03/19/24 walker #1 ea 03/19/24 allopurinol 100 mg tablet 200 mg (2 x 100 mg) PO DAILY 90 04/04/24 days #180 tabs compression stockings #2 ea 04/12/24 atorvastatin 40 mg tablet 40 mg PO DAILY 90 days #90 tabs 04/15/24 meclizine 25 mg tablet 25 mg PO TID PRN dizziness 7 days 04/29/24 #21 tabs lisinopril 40 mg tablet 40 mg PO DAILY 90 days #90 tabs 05/03/24 commode (bedside commode) #1 ea 05/06/24 cholecalciferol (vitamin D3) 25 25 mcg PO DAILY 90 days #90 caps 05/19/24 mcg (1,000 unit) capsule pramipexole 0.5 mg tablet 0.5 mg PO TID 15 days #45 tabs 05/19/24 sennosides 8.6 mg-docusate sodium 2 tab-cap (2 x 8.6-50 mg) PO 05/19/24 50 mg capsule (Senna Plus) BEDTIME 60 days #120 caps blood sugar diagnostic (Accu-Chek #100 ea 05/23/24 Guide test strips) lancets (Accu-Chek Fastclix Lancet #200 ea 05/23/24 Drum) lancing device with lancets kit #1 ea 05/23/24 (Accu-Chek FastClix Lancing Device kit) metformin 500 mg tablet,extended 500 mg PO DAILY #90 tabs 05/23/24 release 24 hr omeprazole 20 mg capsule,delayed 20 mg PO DAILY 90 days #90 caps 05/23/24 release trazodone 50 mg tablet 50 mg PO BEDTIME #90 tabs 05/23/24 albuterol sulfate 90 mcg/actuation 2 puff inhalation Q6H PRN 05/24/24 aerosol inhaler shortness of breath or wheezing #8.5 grams carbidopa 25 mg-levodopa 100 mg 2 tab PO BID 90 days #360 tabs 05/27/24 tablet blood-glucose meter (Accu-Chek #1 ea 06/06/24 Guide Glucose Meter) cephalexin 500 mg capsule 500 mg PO Q6H 7 days #28 caps 06/06/24 guaifenesin 600 mg tablet, 600 mg PO BID cough 5 days #10 tabs 06/06/24 extended release 12 hr (Mucinex) mupirocin 2 % topical ointment 1 appl topical QID #22 grams 06/06/24 clonazepam 0.5 mg tablet 0.5 mg PO BEDTIME 30 days #30 tabs 06/10/24 doxycycline hyclate 100 mg capsule 100 mg PO BID #14 caps 06/10/24 fenofibrate 54 mg tablet 54 mg PO DAILY 90 days #90 tabs 06/24/24 polyethylene glycol 3350 17 17 g PO DAILY #510 grams 07/01/24 gram/dose oral powder (Miralax) Allergies Allergy/AdvReac Type Severity Reaction Status Date / Time pravastatin Allergy Intermediate dry mouth Verified 07/01/24 00:49 Review of Systems Review of Systems Yes all other systems are reviewed and are negative PMFSH Past Medical History Medical History CHF (congestive heart failure) Type 2 diabetes mellitus with hemoglobin A1c goal of less than 7.0% New onset type 2 diabetes mellitus CKD (chronic kidney disease) stage 2, GFR 60-89 ml/min On allopurinol therapy Prostate cancer CKD (chronic kidney disease) stage 3, GFR 30-59 ml/min Skin lesion Left knee pain Chronic pain syndrome Sacroiliac dysfunction Sacroiliitis Spondylosis without myelopathy or radiculopathy, lumbar region Adult general medical exam Screening for colon cancer Leg edema Urgency incontinence Parkinsons disease Mixed hyperlipidemia Essential hypertension GERD (gastroesophageal reflux disease) Lumbar degenerative disc disease Surgical History History of esophagogastroduodenoscopy (EGD) History of cataract surgery History of colonoscopy History of basal cell carcinoma (BCC) excision History of prostatectomy Family History Family History Father No problems noted. Mother Diabetes Cancer Social History Social History Household Members Other:: granddaughter Housing: Apartment Are you a primary pediatric acute care unit nurse to a significant other at home: No Do you presently have visiting nurse or other home services: No Alcohol intake: former Patient Tobacco Use Status: Never used Tobacco e-Cigarette/Vaping Use: Never Used Second Hand Smoke Exposure: No Advance Directives: Yes Advance Directives on File: Yes Advance Directives Date on File: 08/18/23 Do you have a plan to hurt others: No Plan service: No Current occupational status: disabled Current occupation: lt handed Cognitive needs: Yes Hearing needs: No Vision needs: No Physical Exam ED Vital Signs: Vital Signs - 24 hr 07/01/24 00:49 Temperature 98.7 F Pulse Rate 80 Respiratory Rate 16 Blood Pressure 160/90 H Pulse Oximetry 96 Oxygen Delivery Method Room Air BMI result Body Mass Index 36.5 Appearance: Alert. Oriented X3. No acute distress. Eyes: No pallor or icterus ENT: Pharynx normal. Oral Mucosa moist Neck: Normal inspection. Neck supple. CVS: Normal heart rate and rhythm. Pulses normal. Respiratory: No respiratory distress. Equal air entry bilateral, no wheezing/rales/rhonchi Abdomen: Soft and deep tenderness left lower code no rebound tenderness or guarding small umbilical fat containing hernia reducible Bowel sounds are present, no mass palpable, no CVA tenderness Skin: Skin warm and dry. Normal skin color. Normal skin turgor. Extremities: No lower extremity edema. No calf tenderness Neuro: Oriented X 3. No motor deficit. Medical Decision Making Medical Decision Making [facility] Narrative: Patient with history of constipation with pain in the left lower abdomen CT scan showed diverticulosis no diverticulitis labs are normal with normal WBC count no significant hernia noticed will discharge patient home advised to avoid constipation have legal liquid diet advanced as tolerated Differential Diagnosis Differential Diagnoses: The differential diagnosis associated with the presentation includes Diverticulitis/kidney stone/umbilical hernia Lab Data [facility] Lab Attestation statement: I reviewed the patient's lab results. 07/01/24 01:29 07/01/24 01:29 Labs: Lab Results 07/01/24 Range/Units 01:29 WBC 6.5 (4.8-10.8) X10*3/uL RBC 4.11 L (4.60-5.80) X10*6/uL Hgb 12.7 L (14.0-18.0) g/dl Hct 37.3 L (42.0-52.0) % MCV 90.8 (80.0-98.0) fL MCH 30.9 (27.0-33.0) pg MCHC 34.0 (31.0-36.0) g/dl RDW 13.8 (11.0-16.0) % Plt Count 169 (160-400) X10*3/uL MPV 11.5 (9.4-12.4) fL Immature Gran % (Auto) 0.5 H (0.0-0.4) % Neut % (Auto) 60.7 (45-73) % Lymph % (Auto) 23.3 (20-40) % Wright % (Auto) 10.1 (2-11) % Eos % (Auto) 5.2 H (0-4) % Baso % (Auto) 0.2 (0-2) % Lymph # (Auto) 1.5 (1.2-4.9) X10*3/uL Wright # (Auto) 0.7 (0.1-1.2) X10*3/uL Eos # (Auto) 0.3 (0.0-0.4) X10*3/uL Baso # (Auto) 0.0 (0.0-0.2) X10*3/uL Abs Immat Gran (auto) 0.03 (0.00-0.03) X10*3/uL Absolute Neuts (auto) 4.0 (2.0-8.3) x10*3/uL Absolute Nucleated RBC 0.000 (0.0-0.012) X10*3/uL Nucleated RBC % (auto) 0.0 (0.0-0.2) /100WBC Sodium 137 (135-145) mmol/L Potassium 3.8 (3.3-5.1) mmol/L Chloride 105 (96-108) mmol/L Carbon Dioxide 23 (22-29) mmol/L Anion Gap 13 (12-20) BUN 20 H (9-16) mg/dL Creatinine 0.99 (0.5-1.4) mg/dL Estim Creat Clear Calc 74.7 Estimated GFR > 60 Random Glucose 123 H (60-115) mg/dL Calcium 9.2 (8.4-10.2) mg/dL Total Bilirubin 0.5 (0.0-1.0) mg/dL AST 22 (5-37) U/L ALT 19 (0-40) U/L Alkaline Phosphatase 72 (39-117) U/L Total Protein 6.8 (6.5-8.0) g/dL Albumin 3.9 (3.5-5.0) g/dL Radiology Impression Discussion of test interpretation with radiology: I have reviewed the radiologist's reading. Radiologist Impression: IMPRESSION: 1. Mildly motion limited examination. No acute inflammatory process identified within the abdomen or pelvis. 2. Colonic diverticulosis. No CT evidence for acute diverticulitis. This document has been electronically signed by: Kenn Levine MD on 07/01/2024 03:04:48 Discharge Plan Discharge Clinical Impression: Diverticulosis, Hernia, umbilical Patient Disposition: Home, Self-Care Instructions: Diverticulosis (ED), Umbilical Hernia (ED), Diverticulitis Diet (ED) Additional Instructions: Drink plenty of fluids Avoid constipation Follow diverticular diet Follow with your PCP if any concerns of pain gets worse Stool softener as advised Prescriptions: New polyethylene glycol 3350 [Miralax] 17 gram/dose powder 17 g PO DAILY Qty: 510 0RF No Action diclofenac sodium [Voltaren Arthritis Pain] 1 % gel 2 g topical QID PRN (Reason: Arthritis pain) 30 Days Qty: 100 1RF Rx Instructions: apply to single elbow, wrist or hand; for hand includes palm/fingers/back of hand atorvastatin 40 mg tablet 40 mg PO DAILY 90 Days Qty: 90 2RF meclizine 25 mg tablet 25 mg PO TID PRN (Reason: dizziness) 7 Days Qty: 21 0RF lisinopril 40 mg tablet 40 mg PO DAILY 90 Days Qty: 90 1RF (DME) bedside commode Kit See Rx Instructions .Route Qty: 1 0RF Rx Instructions: As directed pramipexole 0.5 mg tablet 0.5 mg PO TID 15 Days Qty: 45 0RF cholecalciferol (vitamin D3) 25 mcg (1,000 unit) capsule 25 mcg PO DAILY 90 Days Qty: 90 1RF Senna Plus 8.6-50 mg capsule 2 tab-cap PO BEDTIME 60 Days Qty: 120 1RF carbidopa-levodopa 25-100 mg tablet 2 tab PO BID 90 Days Qty: 360 1RF guaifenesin [Mucinex] 600 mg tablet extended release 12hr 600 mg PO BID 5 Days Qty: 10 0RF doxycycline hyclate 100 mg capsule 100 mg PO BID Qty: 14 0RF clonazepam 0.5 mg tablet 0.5 mg PO BEDTIME 30 Days Qty: 30 0RF fenofibrate 54 mg tablet 54 mg PO DAILY 90 Days Qty: 90 1RF acetaminophen 500 mg tablet 500 mg PO Q6H PRN (Reason: pain) Qty: 30 0RF (DME) adult diapers pull-ups XL See Rx Instructions .Route .MEDSUPPLY Qty: 240 11RF Rx Instructions: As directed allopurinol 100 mg tablet 200 mg PO DAILY 90 Days Qty: 180 4RF (DME) underpads [Bed Underpads] Pad See Rx Instructions .Route Qty: 240 11RF Rx Instructions: Use 8 pads per day (DME) walker Misc See Rx Instructions .Route Qty: 1 0RF Rx Instructions: walker with seat and wheels (DME) compression stockings 25-30 mmhg See Rx Instructions .Route .MEDSUPPLY Qty: 2 0RF Rx Instructions: As directed zolpidem 5 mg tablet 5 mg PO BEDTIME albuterol sulfate 90 mcg/actuation HFA aerosol inhaler 2 puff inhalation Q6H PRN (Reason: shortness of breath or wheezing) Qty: 8.5 0RF furosemide [Lasix] 20 mg tablet 20 mg PO BID PRN metformin 500 mg tablet extended release 24 hr 500 mg PO DAILY Qty: 90 1RF omeprazole 20 mg capsule,delayed release(DR/EC) 20 mg PO DAILY 90 Days Qty: 90 3RF trazodone 50 mg tablet 50 mg PO BEDTIME Qty: 90 1RF (DME) lancets [Accu-Chek Fastclix Lancet Drum] Misc See Rx Instructions .ROUTE .MEDSUPPLY Qty: 200 0RF Rx Instructions: As directed (DME) lancing device with lancets [Accu-Chek FastClix Lancing Dev] Kit See Rx Instructions .ROUTE .MEDSUPPLY Qty: 1 0RF Rx Instructions: As directed (DME) Accu-Chek Guide test strips Strip See Rx Instructions .Route Qty: 100 0RF Rx Instructions: As directed cephalexin 500 mg capsule 500 mg PO Q6H 7 Days Qty: 28 0RF mupirocin 2 % ointment 1 appl topical QID Qty: 22 3RF (DME) blood-glucose meter [Accu-Chek Guide Glucose Meter] Misc See Rx Instructions .ROUTE .MEDSUPPLY Qty: 1 0RF Rx Instructions: As directed Print Language: East Timorese
[2024-07-01 01:33] LABS: MANUAL DIFF FLAG NO
[2024-07-01 01:34] LABS: Basophils Percent Auto 0.2 % (0-2); Eosinophils Absolute Auto 0.3 X10*3/uL (0.0-0.4); Eosinophils Percent Auto 5.2 % (0-4); Hematocrit 37.3 % (42.0-52.0); Hemoglobin 12.7 g/dl (14.0-18.0); Imm Gran Abs Auto 0.03 X10*3/uL (0.00-0.03); Imm Gran Pct Auto 0.5 % (0.0-0.4); Lymphocytes Absolute Auto 1.5 X10*3/uL (1.2-4.9); Lymphocytes Percent Auto 23.3 % (20-40); Mean Corpuscular Hemoglobin 30.9 pg (27.0-33.0); Mean Corpuscular Volume 90.8 fL (80.0-98.0); Mean Platelet Volume 11.5 fL (9.4-12.4); Monocytes Absolute Auto 0.7 X10*3/uL (0.1-1.2); Monocytes Percent Auto 10.1 % (2-11); Neutrophils Percent Auto 60.7 % (45-73); Platelet Count 169 X10*3/uL (160-400); Red Blood Count 4.11 X10*6/uL (4.60-5.80); Red Cell Distribution Width 13.8 % (11.0-16.0); White Blood Count 6.5 X10*3/uL (4.8-10.8)
[2024-07-01 01:57] LABS: Alanine Aminotransferase 19 U/L (0-40); Albumin Level 3.9 g/dL (3.5-5.0); Anion Gap 13 (12-20); Aspartate Amino Transferase 22 U/L (5-37); Bilirubin Total 0.5 mg/dL (0.0-1.0); Blood Urea Nitrogen 20 mg/dL (9-16); Calcium 9.2 mg/dL (8.4-10.2); Carbon Dioxide 23 mmol/L (22-29); Chloride 105 mmol/L (96-108); Creatinine Clr Calc Pharmacy 74.7; Estimated Glomerular Filt Rate > 60; Glucose Random 123 mg/dL (60-115); Potassium 3.8 mmol/L (3.3-5.1); Sodium 137 mmol/L (135-145); Total Protein 6.8 g/dL (6.5-8.0)
[2024-07-01 02:09] LABS: Alkaline Phosphatase 72 U/L (39-117)
[2024-07-01 03:39] VITALS: BP 155/89; PULSE 72; RESP 16; TEMP 36.6; O2SAT 97
== END 2024-07-01 03:41 | disposition home or self-care (01) ==
PROVIDERS: Emergency Provider Internal Medicine; PCP Internal Medicine
DX: K57.30 Diverticulosis of large intestine without perforation or abscess without bleeding (principal); R10.32 Left lower quadrant pain; K42.9 Umbilical hernia without obstruction or gangrene; R10.2 Pelvic and perineal pain; Z79.899 Other long term (current) drug therapy
CPT/HCPCS: 36415; 74176; 80053; 85025; 99282; 99284

== ENCOUNTER → 2024-07-01 01:49 | Outpatient (BNV) | payer MEDICARE, MEDICAID, SELFPAY | PROVIDERS: Emergency Provider Internal Medicine; PCP Internal Medicine; Visit Provider Radiology Diagnostic Radiology | DX: K57.30 Diverticulosis of large intestine without perforation or abscess without bleeding (principal) | CPT/HCPCS: 74176 ==

== ENCOUNTER 2024-07-04 12:22 | Outpatient (AMB) | payer MEDICARE, MEDICAID, SELFPAY ==
--- NOTE | 2024-07-04 12:23 | MHC.OFFWIV ---
Intake Vital Signs 07/04/24 12:24 Height 5 ft 8 in Weight 238 lb BMI 36.2 BP 164/96 H Blood Pressure Location Lt brachial Position Sitting Respiration 20 Pulse 92 Pulse Source Pulse Oximeter Temp 98.2 F Temp Source Oral Pulse Oximetry (%) 97 Oxygen Delivery Method Room Air Intake Visit Reasons: EP High BP 156/84, Sugars 146, sob,unwell feeling Intake Note: Pt is here today for a walk in visit. Pt c/o elevated BP sob feeling anxious for couple of days. Pt states that his glucose fasting this morning was 120. Patient Tobacco Use Status: Never used Tobacco Allergies pravastatin Allergy (Intermediate, Verified 07/04/24 12:29) dry mouth HPI HPI Comments History of Present Illness Details History of Present Illness - The patient is a 79-year-old male with a past medical history of CHF, T2DM, CKD stage 3, chronic pain syndrome, Parkinson's disease, HLD, HTN, and GERD presenting with shortness of breath and elevated blood pressure readings. - He experiences anxiety and shortness of breath at rest, with recent blood pressure of 156 mmHg and blood glucose level of 146 mg/dL. - His current shortness of breath occurs even at rest without any additional symptoms like fever, cough, dizziness, chest pain or headaches. - He recently discontinued verapamil due to peripheral edema, which is now improved, now takes lisinopril 40 mg and furosemide 20 mg twice daily. Has been taking these meds as prescribed. - He recently visited a professional bass fisherman who advised compression stockings and has had recent ED visits that focused on diverticulosis. Physical Exam General: Cooperative, healthy appearing, comfortable, no acute distress and well developed Orientation: Patient oriented x3 Limitations: No limitations Head: Normal to inspection Ears: Hearing grossly normal bilaterally Nose: Normal External nose present Face and sinus: Normal facial exam Eyes: Appearance normal, both eyes and all related structures Neck: Normal visual inspection and Yes full ROM Respiratory: Normal respiratory effort and able to speak in complete sentences. Clear but dim to auscultation bilaterally Cardiovascular: Regular rate and rhythm. Normal S1 and S2 Skin: No rashes or lesions noted Neuro: Patient oriented x3 Extremities: 1+ pitting edema with erythema but no warmth on BL LE PFSH Medical History CHF (congestive heart failure) Type 2 diabetes mellitus with hemoglobin A1c goal of less than 7.0% New onset type 2 diabetes mellitus CKD (chronic kidney disease) stage 2, GFR 60-89 ml/min On allopurinol therapy Prostate cancer CKD (chronic kidney disease) stage 3, GFR 30-59 ml/min Skin lesion Left knee pain Chronic pain syndrome Sacroiliac dysfunction Sacroiliitis Spondylosis without myelopathy or radiculopathy, lumbar region Adult general medical exam Screening for colon cancer Leg edema Urgency incontinence Parkinsons disease Mixed hyperlipidemia Essential hypertension GERD (gastroesophageal reflux disease) Lumbar degenerative disc disease Surgical History History of esophagogastroduodenoscopy (EGD) History of cataract surgery History of colonoscopy History of basal cell carcinoma (BCC) excision History of prostatectomy Family History Father No problems noted. Mother Diabetes Cancer Social History Household Members Other:: granddaughter Housing: Apartment Are you a primary care center manager to a significant other at home: No Do you presently have visiting nurse or other home services: No Alcohol intake: former Patient Tobacco Use Status: Never used Tobacco e-Cigarette/Vaping Use: Never Used Second Hand Smoke Exposure: No Advance Directives Date on File: 08/18/23 service: No Current occupational status: disabled Current occupation: lt handed Cognitive needs: Yes Hearing needs: No Vision needs: No Review of Systems Const All systems reviewed & are unremarkable except as noted in HPI and below Physical Exam Vital Signs: Last Vital Signs Temp 98.2 F 07/04/24 12:24 Pulse 92 07/04/24 12:24 Resp 20 07/04/24 12:24 BP 164/96 H 07/04/24 12:24 Pulse Ox 97 07/04/24 12:24 Oxygen Delivery Method Room Air 07/04/24 12:24 BMI result Body Mass Index 36.2 Assessment & Plan Assessment & Plan (1) Acute exacerbation of CHF (congestive heart failure): Code(s): I50.9 - Heart failure, unspecified Qualifiers: Heart failure type: unspecified Qualified Code(s): I50.9 - Heart failure, unspecified Plan: BP elevated 164/96 other VSS, pt well appearing and PE remarkable for 1+ pitting edema in BL LE, lungs dim but clear. This is all possibly indicative of a CHF exacerbation. Given his history of CHF, previous missed doses of furosemide and other comorbidities, it is crucial to address the likely fluid overload. I plan for him to be evaluated in the emergency department for comprehensive management, including laboratory tests and chest imaging to verify heart failure exacerbation. Called [facility] ED with betty, spoke with Maryan in triage at 1PM. Patient was informed and verbally consented to the use of an ambient scribe for clinic note documentation during this visit. Coding Level of Care Code Est Pt Level 5 (02863) Diagnoses Acute on chronic congestive heart failure, unspecified heart failure type I50.9 Heart failure type: unspecified
[2024-07-04 12:24] VITALS: BP 164/96; PULSE 92; RESP 20; TEMP 36.8; O2SAT 97; BMI 36.2
--- OUTSIDE RECORDS SUMMARY | 2024-07-04 15:09 | XMS_ITS | Encounter Summary ---
Author Organization [facility] Address [address] [place] [address] Care Team Providers Care Medical Interpreter Name Role Phone Rochelle Mckeon MD Primary Care Provider Un available Community, Pcp Primary Care Provider Unavailabl e Encounter Details Date Type Department Care Team Description 05/08/2019 Energy And Sustainability Manager Report Medical Records [address] [place] [address] Kelvin Jacob MD Social History Tobacco Use [...] on filedocumented in this encounter Care Teams Medical Interpreter Relationship Specialty Start Date End Date Rochelle Mckeon MD PCP - General Internal Medicine 10/10/1603/01 Community, Pcp PCP - General Internal Medicine 03/02/21 documented as of this encounter
--- OUTSIDE RECORDS SUMMARY | 2024-07-04 15:09 | XMS_ITS | Encounter Summary ---
Author Organization [facility] Address [address] [place] [address] Care Team Providers Care Biometric Technician Name Role Phone Rochelle Mckeon MD Primary Care Provider Un available Community, Pcp Primary Care Provider Unavailabl e Encounter Details Date Type Department Care Team Description 12/06/2016 Release of Information Medical Records [address] [place] [id number] Abstract, Provider Social History Tobacco Use Types Packs/Day Years Used Date Smoking Tobacco: Never Sex Assigned at Date Recorded Not on file documented as of this encounter Plan of Treatment Not on file documented as of this encounter Visit Diagnoses Not on filedocumented in this encounter Care Teams Biometric Technician Relationship Specialty Start Date End Date Rochelle Mckeon MD PCP - General Internal Medicine 10/10/1603/01 Community, Pcp PCP - General Internal Medicine 03/02/21 documented as of this encounter
--- OUTSIDE RECORDS SUMMARY | 2024-07-04 15:09 | XMS_ITS | Clinical Summary ---
Author Organization [facility] Facility Address [address] [place] [address], [place] [address] Care Team Providers Care Medical Staff Credentialing Coordinator Name Role Phone Susy Sylvester MD Primary Care Provider [phone] Allergies No known active allergies Medications trihexyphenidyl [...] age to complete this topic Insurance [address] [place] [id number] [place] Care Teams Medical Staff Credentialing Coordinator Relationship Specialty Start Date End Date Susy Sylvester MD [address] [place], [place] PCP - General Internal Medicine 03/31/22
--- OUTSIDE RECORDS SUMMARY | 2024-07-04 15:09 | XMS_ITS | Data Portability ---
Author Organization [place] [facility], Allergy Address [address] [place] [address] Assessment Encounter Date Assessment Date Assessment LastModified by Organization Details LastModified Time 10/30/2023 10/30/2023 78 year old Kazakh speaking male with a history of dementia [...] contra st 2023 024 [email or web address] [facility], [address] [place] [address], [phone], 4 11:35:27 CT, maxill ofacia l, w/o contra st 2023 024 [facility], [address] [place] [address], [id number], 4 10:11:43 Medication Orders doxycy maciel hyclat e [address] [facility], [address] [place] [address], [id number], 4 10:36:41 flutic asone propio mynor 50 mcg/ac tuatio n nasal spray, suspen padmini 2023 [facility], [address] [place] [address], [id number], 4 14:57:14 Patient TargetsNo targets recorded. Patient InstructionsNo instructions recorded. Reason for Referral None Reported. Results Created Date Observation Date Name Description Value Unit Range Abnormal Flag Note LastModifiedBy Organization Detail LastModifiedTime 12/08/[address], sinus es, w/o contr ast No observ ation record ed. [email or web address] [facility] Of [address], [address], 12/08/2023 11:35:24 Result Notes None recorded. Problems Name Problem SNOMED Code Status Onset Date Resolution Date Notes Provider Name and Address Organization Details Recorded Time Nasal congestion 87515120 Active JAYSON SHIELDS MD [address] [place] [address], [phone], [facility] - [facility] 4 11:58:59 Chronic maxillary sinusitis 53401443 Active JAYSON SHIELDS MD [address] [facility], [place], [address], [place] - [facility] 4 12:00:46 Chronic rhinitis 10503385 Active 024 JAYSON SHIELDS MD [facility] [place], [place], [address], [place] - [facility] 4 12:01:02 Chronic sinusitis 92221506 Active 024 JAYSON SHIELDS MD [facility] [place], [place], [address], [place] - [facility] 4 12:01:02 Polyp of nasal cavity 752178643 Active 024 JAYSON SHIELDS MD 100 [facility], [place], [address], [place] - [facility] 4 13:04:18 Parkinson's disease 90706847 Active 024 JAYSON SHIELDS MD 100 [facility], [place], [address], [place] - [facility] 4 11:34:00 Impaired cognition 156874082 Active 024 JAYSON SHIELDS MD 100 [facility], [place], [address], [place] - [facility] 4 11:34:12 Problem Notes None recorded. Procedures Surgical History Date Name Laterality Status Provider Name and Address Organization Details Recorded Time 4 JMSNasal/Sinus Endoscopy completed JAYSON ALEXANDER MD [address], [address], [place] - [facility] 10/30/2023 12:04:04 Cataract Surgery completed Deny Blanca [place] - [facility] 10/30/2023 11:20:20 excision of basal cell carcinoma completed Deny Blanca [place] - [facility] 10/30/2023 11:20:58 Imaging Results Imaging Date Name Status LastModified by Organiz ation Details LastModified Time 12/08/2023 CT, sinuses, w/o contrast completed rogerio [facility] Of [address], [place], [address], 12/08/2023 11:35:24 Procedure Notes None recorded. Medical [...] Updated DateTime 10/30/2023 172.72 cm 32.8 kg/m2 98132.95 g Deny Blanca [place] - [facility] 10/30/2023 11:37:14 Social History None recorded. Functional Status None recorded. Mental Status None recorded. Family History Nothing Reported. Medical History No medical history recorded. Past Encounters Encounter ID Performer Location Encounter Start Date Encounter Closed Date Diagnosis/Indication Diagnosis SNOMED-CT Code Diagnosis ICD10 Code Diagnosis Note [id number] JAYSON BARRY MD [facility] [address] [address] 10/30/2023 11:00:35 10/30/2023 12:05:28 Nasal congestion 95583278 R09.81 Chronic [place] xillary sinusitis 11961725 J32.0 Chronic rhinitis 4137590 6 J31.0 Polyp of nasal cavity 73 1008581 J33.0 [id number] JAYSON BARRY MD [facility] [address] [place] [address] 12/08/2023 10:32:17 12/08/2023 16:44:16 Chronic sinusitis 94562669 J32.9 Parkinson's disease 4904 9000 G20.A1 Impaired cognition 92875 6002 R41.89 Health Concerns Section Related Observation LastModified by Organization Detai ls LastModified Time None Recorded Concern Status LastModified by Organization Details LastModified Time None Recorded Advance Directives Directive None Recorded Payers Encounter Date Sequence Insurance Name Policy Number Policy Vargas Covered Member ID Vargas Member ID Guarantor Name 10/30/2023 2 [place] Onur Colon [id number] Onur Colon 10/30/2023 1 MEDICARE B-[place]: [facility] [email or web address] Onur Colon [id number] Onur Colon 12/08/2023 2 [place] Onur Colon [id number] Onur Colon 12/08/2023 1 MEDICARE B-[place]: [facility] SERVICES Onur Colon [id number] Onur Colon Notes Date Note Type [...] unfortunately did not improve his symptoms. His dpyrysba-nr-rsv and son help translate for him. JAYSON ALEXANDER MD [address], [address], [place] - [facility] 10/30/2023 13:04:39 12/08/2023 text/html Family notes kesha t patient feels improved following the antibiotics and nasal steroids. Previously noted to have incidental findings of polyps and hyperdense secretions.No other change in his history prior visit78 year old Kazakh speaking male with a history of dementia [...] surgery given to family JAYSON ALEXANDER MD [address] [place] [address],[place] [address], [place], [address], [facility] - [facility] 12/08/2023 11:35:55
--- OUTSIDE RECORDS SUMMARY | 2024-07-04 15:09 | XMS_ITS | Encounter Summary ---
Author Organization [facility] Address [address] [place] [address] Care Team Providers Care Clinic Assistant Name Role Phone Rochelle Mckeon MD Primary Care Provider Un available Community, Pcp Primary Care Provider Unavailabl e Encounter Details Date Type Department Care Team Description 03/07/2017 Development Consultant Report Medical Records [address] [place] [address] Kelvin Jacob MD Social History Tobacco Use [...] on filedocumented in this encounter Care Teams Clinic Assistant Relationship Specialty Start Date End Date Rochelle Mckeon MD PCP - General Internal Medicine 10/10/1603/01 Community, Pcp PCP - General Internal Medicine 03/02/21 documented as of this encounter
--- OUTSIDE RECORDS SUMMARY | 2024-07-04 15:09 | XMS_ITS | Encounter Summary ---
Author Organization [facility] Address [address] [place] [address] Care Team Providers Care Radiotelephone Technical Operator Name Role Phone Rochelle Mckeon MD Primary Care Provider Un available Community, Pcp Primary Care Provider Unavailabl e Encounter Details Date Type Department Care Team Description 09/12/2017 Bulk Plant Manager Report Medical Records [address] [place] [address] Kelvin Jacob MD Social History Tobacco Use [...] on filedocumented in this encounter Care Teams Radiotelephone Technical Operator Relationship Specialty Start Date End Date Rochelle Mckeon MD PCP - General Internal Medicine 10/10/1603/01 Community, Pcp PCP - General Internal Medicine 03/02/21 documented as of this encounter
--- OUTSIDE RECORDS SUMMARY | 2024-07-04 15:09 | XMS_ITS | Referral Summary ---
Author Organization [facility] Address [address] [place] [address] Care Team Providers Care Laundry Washer Name Role Phone Susy Sylvester Primary Care Provider [phone] Encounters Date Type Department Care Team Description 06/05/2024 1:00 PM EDT Office Visit [facility] [address] [place] [phone] Cristhian Ruff DO Parkinson's disease, unspecified whether [...] Description 10/09/2024 1:00 PM EDT Office Visit [facility] [address] [place], [place] [phone] Cristhian Ruff DO [address] [place] [address] Insurance [facility] Member Subscriber Plan / Payer (Ef fective 2023-Present) Name:Onur Yarbrough Relation to Subscriber:Self Name:Onur Yarbrough Payer ID:[id number] Group ID:Not on file Type:Not on file Address: [address] [id number] MEDICARE Care Teams Laundry Washer Relationship Specialty Start Date End Date Susy Sylvester [address] [facility] [place] [address] PCP - General Internal Medicine 06/14/23
--- OUTSIDE RECORDS SUMMARY | 2024-07-04 15:09 | XMS_ITS | Clinical Summary ---
Author Organization [facility] Address [address] [place] [address] Care Team Providers Care Technical Programs Manager Name Role Phone Susy Sylvester Primary Care Provider [phone] Allergies No known active allergies Medications meclizine [...] Description 06/05/2024 1:00 PM EDT Office Visit [facility] [address] [place] [address] Cristhian Ruff DO Parkinson's disease, unspecified whether [...] Description 10/09/2024 1:00 PM EDT Office Visit [facility] [address] [place] [phone] Cristhian Ruff DO [address] [place] [address] Health Maintenance Due Date Last Done Comments [...] patient's [place] [id number] [facility] MEDICARE Care Teams Technical Programs Manager Relationship Specialty Start Date End Date Susy Sylvester [address] [place] [address] [place] [address] PCP - General Internal Medicine 06/14/23
--- OUTSIDE RECORDS SUMMARY | 2024-07-04 15:09 | XMS_ITS | Encounter Summary ---
Author Organization [facility] Address [address] [place] [address] Care Team Providers Care Oyster Sorter Name Role Phone Susy Sylvester Primary Care Provider [phone] Encounter Details Date Type Department Care Team (Late st Contact Info) Description 12/21/2023 Orders Only [facility] Nuclear Medicine [address] [place] [address] Jake Angulo MD PhD [address] [place] [address] Social History Tobacco Use Types Packs/Day Years [...] Description 10/09/2024 1:00 PM EDT Office Visit [facility] [address] [place] [address] Cristhian Ruff DO [address] [place] [address] documented as of this encounter Visit Diagnoses Not on filedocumented in this encounter Care Teams Oyster Sorter Relationship Specialty Start Date End Date Susy Sylvester [address] [place] [address] dr [place], [place] [address] PCP - General Internal Medicine 06/14/23 documented as of this encounter
== END 2024-07-04 13:26 | disposition home or self-care (01) ==
PROVIDERS: PCP Internal Medicine; Visit Provider Physician Assistant
DX: I50.9 Heart failure, unspecified (principal)

== ENCOUNTER → 2024-07-04 12:22 | Outpatient (BNVA) | payer MEDICARE, MEDICAID, SELFPAY | PROVIDERS: PCP Internal Medicine; Visit Provider Physician Assistant | DX: I50.9 Heart failure, unspecified (principal) | CPT/HCPCS: 99212 ==

== ENCOUNTER 2024-07-04 13:55 | Emergency (ER) | payer MEDICARE, MEDICAID, SELFPAY ==
--- NOTE | ~2024-07-04 | XR_ITS ---
EXAMINATION: XR CHEST CLINICAL INFORMATION: dyspnea, leg swelling COMPARISON: May 28, 2024. TECHNIQUE: 2 views of the chest were obtained. FINDINGS: Pulmonary reticular pattern. No consolidation, pleural effusion or pneumothorax. Cardiomediastinal silhouette size is normal. Calcified plaques in the aortic arch. Multilevel thoracic spondylosis. XR/XR chest 2V IMPRESSION: Mild interstitial lung edema in the correct clinical settings. Electronically signed by: Imer De La Paz MD 07/04/2024 02:29 PM EDT
[2024-07-04 14:04] VITALS: BP 171/92; PULSE 80; RESP 16; TEMP 36.8; O2SAT 95; BMI 35.8
--- NOTE | 2024-07-04 14:05 | ED.GENADULT ---
HPI - General Adult General Chief complaint: General Medical Stated complaint: sob high bp bs 146 Time Seen by Provider: 07/04/24 15:12 Source: patient, RN notes reviewed and old records reviewed Mode of arrival: ambulatory History of Present Illness ED Provider: Anne Scott PA-C HPI narrative: 79-year-old Gabonese-speaking male with a past medical history CHF, diabetes, prostate CA, Parkinson's disease, HLD, GERD, presenting to the ED sent in from urgent care complaining of bilateral LE edema, SOB, and elevated BPs at home worsening over the past few weeks/ month. Denies fever, chills, cough, abdominal pain, chest pain, nausea / vomiting. Related Data Home Medications ?Medication ?Instructions ?Recorded ?Confirmed zolpidem 5 mg tablet 5 mg PO BEDTIME 05/24/24 06/06/24 furosemide 20 mg tablet (Lasix) 20 mg PO BID PRN 06/06/24 06/06/24 Previous Rx's ?Medication ?Instructions ?Recorded acetaminophen 500 mg tablet 500 mg PO Q6H PRN pain #30 tabs 09/07/21 diclofenac sodium 1 % topical gel 2 g topical QID PRN Arthritis pain 10/16/23 (Voltaren Arthritis Pain) 30 days #100 grams adult diapers pull-ups #240 ea 11/22/23 underpads (Bed Underpads) #240 ea 03/19/24 walker #1 ea 03/19/24 allopurinol 100 mg tablet 200 mg (2 x 100 mg) PO DAILY 90 04/04/24 days #180 tabs compression stockings #2 ea 04/12/24 atorvastatin 40 mg tablet 40 mg PO DAILY 90 days #90 tabs 04/15/24 meclizine 25 mg tablet 25 mg PO TID PRN dizziness 7 days 04/29/24 #21 tabs lisinopril 40 mg tablet 40 mg PO DAILY 90 days #90 tabs 05/03/24 commode (bedside commode) #1 ea 05/06/24 cholecalciferol (vitamin D3) 25 25 mcg PO DAILY 90 days #90 caps 05/19/24 mcg (1,000 unit) capsule pramipexole 0.5 mg tablet 0.5 mg PO TID 15 days #45 tabs 05/19/24 sennosides 8.6 mg-docusate sodium 2 tab-cap (2 x 8.6-50 mg) PO 05/19/24 50 mg capsule (Senna Plus) BEDTIME 60 days #120 caps blood sugar diagnostic (Accu-Chek #100 ea 05/23/24 Guide test strips) lancets (Accu-Chek Fastclix Lancet #200 ea 05/23/24 Drum) lancing device with lancets kit #1 ea 05/23/24 (Accu-Chek FastClix Lancing Device kit) metformin 500 mg tablet,extended 500 mg PO DAILY #90 tabs 05/23/24 release 24 hr omeprazole 20 mg capsule,delayed 20 mg PO DAILY 90 days #90 caps 05/23/24 release trazodone 50 mg tablet 50 mg PO BEDTIME #90 tabs 05/23/24 albuterol sulfate 90 mcg/actuation 2 puff inhalation Q6H PRN 05/24/24 aerosol inhaler shortness of breath or wheezing #8.5 grams carbidopa 25 mg-levodopa 100 mg 2 tab PO BID 90 days #360 tabs 05/27/24 tablet blood-glucose meter (Accu-Chek #1 ea 06/06/24 Guide Glucose Meter) guaifenesin 600 mg tablet, 600 mg PO BID cough 5 days #10 tabs 06/06/24 extended release 12 hr (Mucinex) mupirocin 2 % topical ointment 1 appl topical QID #22 grams 06/06/24 clonazepam 0.5 mg tablet 0.5 mg PO BEDTIME 30 days #30 tabs 06/10/24 fenofibrate 54 mg tablet 54 mg PO DAILY 90 days #90 tabs 06/24/24 blood pressure monitor #1 ea 07/01/24 polyethylene glycol 3350 17 17 g PO DAILY #510 grams 07/01/24 gram/dose oral powder (Miralax) furosemide 20 mg tablet (Lasix) 20 mg PO DAILY 5 days #5 tabs 07/04/24 Allergies Allergy/AdvReac Type Severity Reaction Status Date / Time pravastatin Allergy Intermediate dry mouth Verified 07/04/24 14:04 Review of Systems Review of Systems: Yes all other systems are reviewed and are negative Constitutional: Constitutional: Reports as per [facility] Past Medical History Attestation statement: The following information was validated with the patient. Source: old records reviewed Medical History CHF (congestive heart failure) Type 2 diabetes mellitus with hemoglobin A1c goal of less than 7.0% New onset type 2 diabetes mellitus CKD (chronic kidney disease) stage 2, GFR 60-89 ml/min On allopurinol therapy Prostate cancer CKD (chronic kidney disease) stage 3, GFR 30-59 ml/min Skin lesion Left knee pain Chronic pain syndrome Sacroiliac dysfunction Sacroiliitis Spondylosis without myelopathy or radiculopathy, lumbar region Adult general medical exam Screening for colon cancer Leg edema Urgency incontinence Parkinsons disease Mixed hyperlipidemia Essential hypertension GERD (gastroesophageal reflux disease) Lumbar degenerative disc disease Surgical History History of esophagogastroduodenoscopy (EGD) History of cataract surgery History of colonoscopy History of basal cell carcinoma (BCC) excision History of prostatectomy Family History Family History Father No problems noted. Mother Diabetes Cancer Social History Social History Household Members Other:: granddaughter Housing: Apartment Are you a primary medicare sales representative to a significant other at home: No Do you presently have visiting nurse or other home services: No Alcohol intake: former Patient Tobacco Use Status: Never used Tobacco e-Cigarette/Vaping Use: Never Used Second Hand Smoke Exposure: No Use of substances other than those prescribed or required for medical reasons: No Advance Directives: Yes Advance Directives on File: Yes Advance Directives Date on File: 08/18/23 service: No Current occupational status: disabled Current occupation: lt handed Cognitive needs: Yes Hearing needs: No Vision needs: No Physical Exam ED Vital Signs: Vital Signs - 24 hr 07/04/24 14:04 07/04/24 14:40 07/04/24 16:10 Temperature 98.3 F Pulse Rate 80 84 Respiratory Rate 16 16 Blood Pressure 171/92 H 175/94 H 164/83 H Pulse Oximetry 95 97 Oxygen Delivery Method Room Air Room Air BMI result Body Mass Index 35.8 Const General: cooperative, healthy appearing and no acute distress Orientation/consciousness: patient oriented x3 Limitations: no limitations HENMT Head: Yes normal to inspection and Yes atraumatic Ears: hearing grossly normal bilaterally General nose exam: Normal external nose present Face and sinus: Yes normal facial exam Eyes General: appearance normal, both eyes and all related structures EOM: EOMs intact bilaterally Neck Neck: Yes normal visual inspection and Yes no meningeal signs Resp Effort & Inspection: normal respiratory effort and no respiratory distress Auscultation: clear to auscultation bilaterally, no crackles, no rales, no rhonchi and no wheezes Cardio Rate: regular rate Heart sounds: S1 normal heart sound present and S2 normal heart sound present GI Inspection: Yes normal to inspection Palpation (GI): Soft to palpation, nontender, no guarding and not rigid Skin Rashes: no rashes Wounds: no wounds Neuro General: patient oriented x3, tone normal and no meningeal signs Cranial nerves: Yes CN's II-XII intact bilaterally Gait exam (Neuro): Normal gait present Extrem Other: 3+ bilateral LE pitting edema. Mild warmth. No erythema. Course Course Course Narrative: This is a rapid medical exam performed by Jaclyn Beltre NP: Additional HPI, ROS, PE not included below will be deferred to primary provider. Patient is a 79-year-old Gabonese speaking male with history of CHF, lymphedema, T2DM, CKD 3a, prostate CA, HTN presenting with family who report patient has had elevated blood pressure readings, weak for the past few days, mild dyspnea. Plan: EKG, labs, CXR 1537-- no leukocytosis. H&H at patient's baseline. Initial troponin 5.2 > will obtain repeat - UA negative. Viral testing negative XR chest 2V IMPRESSION: Mild interstitial lung edema in the correct clinical settings. > will give patient extra dose of 20 mg of p.o. Lasix in the ED now (patient currently takes 20mg lasix BID > will increased to 40mg in the AM & 20mg at night x5 days) -1649-- repeat troponin without significant rise, mi unlikely. Patient is safe for discharge home at this time. Will increase patient's Lasix for the next 5 days as depicted above. this was discussed with patient's HCP /son and [id number] over the phone. Recommend close PCP follow-up. Results discussed with patient including worrisome signs and symptoms and strict return precautions, and when to return to the emergency department. They verbalized understanding and feel safe for discharge at this time. Medications Administered Discontinued Medications Generic Name Dose Route Start Last Admin Trade Name Monty PRN Reason Stop Dose Admin Furosemide 20 mg 07/04/24 15:39 07/04/24 16:10 Furosemide 20 Mg Tablet PO 07/04/24 15:40 20 mg ONCE ONE Administration Protocol Medical Decision Making Medical Decision Making [facility] Narrative: 79-year-old Gabonese-speaking male with a past medical history CHF, diabetes, prostate CA, Parkinson's disease, HLD, GERD, presenting to the ED sent in from urgent care complaining of bilateral LE edema, SOB, and elevated BPs at home worsening over the past few weeks/ month. On exam vital signs stable, NAD, nontoxic appearing, lungs CTA, 3+ bilateral LE pitting edema noted. Concern for CHF exacerbation vs pneumonia vs viral illness. Lower suspicion for acute hypertensive urgency/ emergency or DVT. No evidence of acute cellulitis. Plan: EKG, labs, UA, viral testing, CXR Please refer to course for remaining clinical decision making, interpretation of labs/imaging results, and discussions with consultants and/or family members. Differential Diagnosis Differential Diagnoses: The differential diagnosis associated with the presentation includes As above Admission/Observation Consideration of admission/observation: Escalation of care including admission/observation considered Lab Data [facility] Lab Attestation statement: I reviewed the patient's lab results. 07/04/24 14:31 07/04/24 14:31 Labs: Lab Results 07/04/24 07/04/24 Range/Units 14:31 16:13 WBC 9.0 (4.8-10.8) X10*3/uL RBC 4.43 L (4.60-5.80) X10*6/uL Hgb 13.7 L (14.0-18.0) g/dl Hct 40.5 L (42.0-52.0) % MCV 91.4 (80.0-98.0) fL MCH 30.9 (27.0-33.0) pg MCHC 33.8 (31.0-36.0) g/dl RDW 14.0 (11.0-16.0) % Plt Count 199 (160-400) X10*3/uL MPV 11.9 (9.4-12.4) fL Immature Gran % (Auto) 0.6 H (0.0-0.4) % Neut % (Auto) 73.4 H (45-73) % Lymph % (Auto) 15.0 L (20-40) % [place] % (Auto) 9.4 (2-11) % Eos % (Auto) 1.4 (0-4) % Baso % (Auto) 0.2 (0-2) % Lymph # (Auto) 1.4 (1.2-4.9) X10*3/uL [place] # (Auto) 0.8 (0.1-1.2) X10*3/uL Eos # (Auto) 0.1 (0.0-0.4) X10*3/uL Baso # (Auto) 0.0 (0.0-0.2) X10*3/uL Abs Immat Gran (auto) 0.05 H (0.00-0.03) X10*3/uL Absolute Neuts (auto) 6.6 (2.0-8.3) x10*3/uL Absolute Nucleated RBC 0.000 (0.0-0.012) X10*3/uL Nucleated RBC % (auto) 0.0 (0.0-0.2) /100WBC PT 13.2 H (10.9-12.4) SEC INR 1.1 (0.9-1.1) Sodium 137 (135-145) mmol/L Potassium 3.9 (3.3-5.1) mmol/L Chloride 104 (96-108) mmol/L Carbon Dioxide 23 (22-29) mmol/L Anion Gap 14 (12-20) BUN 21 H (9-16) mg/dL Creatinine 1.12 (0.5-1.4) mg/dL Estim Creat Clear Calc 65.4 Estimated GFR > 60 Random Glucose 106 (60-115) mg/dL Calcium 9.7 (8.4-10.2) mg/dL Magnesium 1.9 (1.6-2.6) mg/dL Total Bilirubin 0.5 (0.0-1.0) mg/dL AST 26 (5-37) U/L ALT 8 (0-40) U/L Alkaline Phosphatase 77 (39-117) U/L Troponin I High Sens 5.2 6.6 (<3.5-35.0) ng/L B-Natriuretic Peptide 66 (<100) pg/mL Total Protein 7.4 (6.5-8.0) g/dL Albumin 4.4 (3.5-5.0) g/dL Urine Color Yellow Urine Appearance Clear Urine pH 5.5 (5.0-9.0) Ur Specific Cook 1.015 (1.005-1.025) Urine Protein Negative (Neg-Trace) mg/dL Urine Glucose (UA) Negative (Negative) mg/dL Urine Ketones Negative (Negative) mg/dL Urine Blood Negative (Negative) Urine Nitrite Negative (Negative) Ur Leukocyte Esterase Negative (Negative) Influenza Type A (PCR) NEGATIVE (Negative) Influenza Type B (PCR) NEGATIVE (Negative) RSV RNA Qual (PCR) NEGATIVE (Negative) SARS-CoV-2 RNA (RT-PCR) NEGATIVE (Negative) Independent Interpretation I performed an independent interpretation of an: EKG and Plain X-Ray Radiology Impression Discussion of test interpretation with radiology: I have reviewed the radiologist's reading. External Record Review External record reviewed: Inpatient record, Office record, Outpatient record, Prior outpatient labs, Prior outpatient radiology, Primary care record and Outside ED record Tests considered The following testing was considered but not selected: As above Prescription Management I considered prescription management with: Other Chronic Conditions Patient?s care impacted by: Diabetes and Hypertension Social Determinants Patient?s care significantly limited by Social Determinants of Health including: Other Social Determinant of Health Discharge Plan Discharge Clinical Impression: Leg edema Patient Disposition: Home, Self-Care Instructions: Leg Edema (ED) Additional Instructions: Your blood work is reassuring. We are increasing your Lasix to 40 mg in the morning (2 pills) & 20mg (1 pill) at night next 5 days. A prescription for 5 days' worth of 20 mg Of Lasix was sent to the pharmacy, so take your home Lasix as well as the 1 additional pill in the morning that is at the pharmacy please have close follow up with her primary care doctor in the next week for re-evaluation and repeat labs If her leg swelling persists or worsens, you develop chest pain or shortness of breath return to the emergency department Prescriptions: New furosemide [Lasix] 20 mg tablet 20 mg PO DAILY 5 Days Qty: 5 0RF No Action diclofenac sodium [Voltaren Arthritis Pain] 1 % gel 2 g topical QID PRN (Reason: Arthritis pain) 30 Days Qty: 100 1RF Rx Instructions: apply to single elbow, wrist or hand; for hand includes palm/fingers/back of hand atorvastatin 40 mg tablet 40 mg PO DAILY 90 Days Qty: 90 2RF meclizine 25 mg tablet 25 mg PO TID PRN (Reason: dizziness) 7 Days Qty: 21 0RF lisinopril 40 mg tablet 40 mg PO DAILY 90 Days Qty: 90 1RF (DME) bedside commode Kit See Rx Instructions .Route Qty: 1 0RF Rx Instructions: As directed pramipexole 0.5 mg tablet 0.5 mg PO TID 15 Days Qty: 45 0RF cholecalciferol (vitamin D3) 25 mcg (1,000 unit) capsule 25 mcg PO DAILY 90 Days Qty: 90 1RF Senna Plus 8.6-50 mg capsule 2 tab-cap PO BEDTIME 60 Days Qty: 120 1RF carbidopa-levodopa 25-100 mg tablet 2 tab PO BID 90 Days Qty: 360 1RF guaifenesin [Mucinex] 600 mg tablet extended release 12hr 600 mg PO BID 5 Days Qty: 10 0RF clonazepam 0.5 mg tablet 0.5 mg PO BEDTIME 30 Days Qty: 30 0RF fenofibrate 54 mg tablet 54 mg PO DAILY 90 Days Qty: 90 1RF (DME) blood pressure monitor Kit See Rx Instructions .Route Qty: 1 0RF Rx Instructions: As directed polyethylene glycol 3350 [Miralax] 17 gram/dose powder 17 g PO DAILY Qty: 510 0RF acetaminophen 500 mg tablet 500 mg PO Q6H PRN (Reason: pain) Qty: 30 0RF (DME) adult diapers pull-ups XL See Rx Instructions .Route .MEDSUPPLY Qty: 240 11RF Rx Instructions: As directed allopurinol 100 mg tablet 200 mg PO DAILY 90 Days Qty: 180 4RF (DME) underpads [Bed Underpads] Pad See Rx Instructions .Route Qty: 240 11RF Rx Instructions: Use 8 pads per day (DME) walker Misc See Rx Instructions .Route Qty: 1 0RF Rx Instructions: walker with seat and wheels (DME) compression stockings 25-30 mmhg See Rx Instructions .Route .MEDSUPPLY Qty: 2 0RF Rx Instructions: As directed zolpidem 5 mg tablet 5 mg PO BEDTIME albuterol sulfate 90 mcg/actuation HFA aerosol inhaler 2 puff inhalation Q6H PRN (Reason: shortness of breath or wheezing) Qty: 8.5 0RF furosemide [Lasix] 20 mg tablet 20 mg PO BID PRN metformin 500 mg tablet extended release 24 hr 500 mg PO DAILY Qty: 90 1RF omeprazole 20 mg capsule,delayed release(DR/EC) 20 mg PO DAILY 90 Days Qty: 90 3RF trazodone 50 mg tablet 50 mg PO BEDTIME Qty: 90 1RF (DME) lancets [Accu-Chek Fastclix Lancet Drum] Misc See Rx Instructions .ROUTE .MEDSUPPLY Qty: 200 0RF Rx Instructions: As directed (DME) lancing device with lancets [Accu-Chek FastClix Lancing Dev] Kit See Rx Instructions .ROUTE .MEDSUPPLY Qty: 1 0RF Rx Instructions: As directed (DME) Accu-Chek Guide test strips Strip See Rx Instructions .Route Qty: 100 0RF Rx Instructions: As directed mupirocin 2 % ointment 1 appl topical QID Qty: 22 3RF (DME) blood-glucose meter [Accu-Chek Guide Glucose Meter] Misc See Rx Instructions .ROUTE .MEDSUPPLY Qty: 1 0RF Rx Instructions: As directed Referrals: Susy Sylvester MD [Primary Care Provider] - 1 week Print Language: Gabonese
--- NOTE | 2024-07-04 14:07 | ECG_ITS ---
Test Reason : htn Blood Pressure : */* mmHG Vent. Rate : 86 BPM Atrial Rate : 86 BPM P-R Int : 162 ms QRS Dur : 90 ms QT Int : 374 ms P-R-T Axes : * 5 62 degrees QTcB Int : 447 ms Normal sinus rhythm Normal ECG When compared with ECG of 28-May-2024 11:53, No significant change was found Referred By: Eneida Beltre Electronically Signed By: FARHEEN DANIELLE MD
[2024-07-04 14:40] VITALS: BP 175/94; PULSE 84; RESP 16; O2SAT 97
[2024-07-04 14:41] LABS: MANUAL DIFF FLAG NO
[2024-07-04 14:42] LABS: Basophils Percent Auto 0.2 % (0-2); Eosinophils Absolute Auto 0.1 X10*3/uL (0.0-0.4); Eosinophils Percent Auto 1.4 % (0-4); Hematocrit 40.5 % (42.0-52.0); Hemoglobin 13.7 g/dl (14.0-18.0); Imm Gran Abs Auto 0.05 X10*3/uL (0.00-0.03); Imm Gran Pct Auto 0.6 % (0.0-0.4); Lymphocytes Absolute Auto 1.4 X10*3/uL (1.2-4.9); Mean Corpuscular HGB Conc 33.8 g/dl (31.0-36.0); Mean Corpuscular Hemoglobin 30.9 pg (27.0-33.0); Mean Corpuscular Volume 91.4 fL (80.0-98.0); Mean Platelet Volume 11.9 fL (9.4-12.4); Monocytes Absolute Auto 0.8 X10*3/uL (0.1-1.2); Monocytes Percent Auto 9.4 % (2-11); Neutrophils Absolute Auto 6.6 x10*3/uL (2.0-8.3); Neutrophils Percent Auto 73.4 % (45-73); Platelet Count 199 X10*3/uL (160-400); Red Blood Count 4.43 X10*6/uL (4.60-5.80)
[2024-07-04 14:44] LABS: Appearance Urine Clear; Color Urine Yellow; Glucose Urine UA Negative (Negative); Leukocyte Esterase Urine Negative (Negative); Nitrite Urine Negative (Negative); PH 5.5 (5.0-9.0); Specific Gravity - Urine 1.015 (1.005-1.025); Urine Blood Negative (Negative); Urine Ketones Negative (Negative); Urine Protein Negative (Neg-Trace)
[2024-07-04 14:55] LABS: INTERNATIONAL NORM RATIO 1.1 (0.9-1.1); Prothrombin Time 13.2 SEC (10.9-12.4)
[2024-07-04 14:58] LABS: Alanine Aminotransferase 8 U/L (0-40); Albumin Level 4.4 g/dL (3.5-5.0); Alkaline Phosphatase 77 U/L (39-117); Anion Gap 14 (12-20); Aspartate Amino Transferase 26 U/L (5-37); Bilirubin Total 0.5 mg/dL (0.0-1.0); Blood Urea Nitrogen 21 mg/dL (9-16); Calcium 9.7 mg/dL (8.4-10.2); Carbon Dioxide 23 mmol/L (22-29); Chloride 104 mmol/L (96-108); Creatinine Clr Calc Pharmacy 65.4; Estimated Glomerular Filt Rate > 60; Glucose Random 106 mg/dL (60-115); Magnesium 1.9 mg/dL (1.6-2.6); Potassium 3.9 mmol/L (3.3-5.1); Sodium 137 mmol/L (135-145); Total Protein 7.4 g/dL (6.5-8.0)
[2024-07-04 15:02] LABS: B Type Natriuretic Peptide 66 pg/mL (<100); Troponin-I High Sensitivity 5.2 ng/L (<3.5-35.0)
[2024-07-04 15:23] LABS: Influenza A PCR NEGATIVE (Negative); Influenza B PCR NEGATIVE (Negative); Resp Syncy Virus RNA Qual PCR NEGATIVE (Negative); SARS COV2 PCR INHOUSE NEGATIVE (Negative)
[2024-07-04 16:10] VITALS: BP 164/83
[2024-07-04] MEDS: Furosemide 20 MG TABLET PO (16:10)
[2024-07-04 16:42] LABS: Troponin-I High Sensitivity 6.6 ng/L (<3.5-35.0)
[2024-07-04 17:29] VITALS: BP 149/87; PULSE 80; RESP 20; TEMP 36.5; O2SAT 97
[2024-07-04 17:34] VITALS: BP 149/87; PULSE 80; RESP 20; TEMP 36.5; O2SAT 97
--- OUTSIDE RECORDS SUMMARY | 2024-07-04 17:34 | XMS_ITS | Data Portability ---
Author Organization [facility] [address] Address [address] [place] [address] Care Team Providers Care Brand Designer Name Role Phone [facility] Primary Care Provider [phone] Assessment No assessment recorded. Plan of Treatment Reminders Order Date Submit Date Provider Last Modified By Organization Details Last Modified Time Details Appointments None record ed. Lab None record ed. Referral None record ed. Procedures None record ed. Surgeries None record ed. Imaging XR, elbow, 3 or more view 023 03/27/19 [facility], [address] [place], [address], 17:46:19 XR, wrist, 3 or more view 023 03/27/19 [facility], [address] [place], [address], 3 17:45:16 Medication Orders None record ed. Patient TargetsNo targets recorded. Patient InstructionsNo instructions recorded. Reason for Referral None Reported. Results Created Date Observation Date Name Description Value Unit Range Abnormal Flag Note LastModifiedBy Organization Detail LastModifiedTime 03/27/19 23 03/27/2022 XR, wrist , 3 or more view No observ ation record ed. [email or web address] 1 [facility] [address] [place], [address], 03/27/2022 17:56:06 03/27/19 23 03/27/2022 XR, elbow , 3 or more view No observ ation record ed. [email or web address] 1 [facility] [address] [place], [address], 03/27/2022 17:56:07 Result Notes None recorded. Problems Name Problem SNOMED Code Status Onset Date Resolution Date Notes Provider Name and Address Organization Details Recorded Time Hypercholestero lemia 74803325 Active 2022 LES VERENICE null, [place] - [facility] 3 15:46:31 Hypertensive disorder 64997637 Active 2022 LES VERENICE null, [place] - [facility] 3 15:46:39 Parkinson's disease 75562592 Active 2022 LES VERENICE null, [place] - [...] completed [email or web address] [facility] [address] [place], [address], 03/27/2022 17:56:06 03/27/2022 XR, elbow, 3 or more view completed [email or web address] [facility] [address] [place], [address], 03/27/2022 17:56:07 Procedure Notes None recorded. Medical [...] Updated DateTime 3 172.72 cm 34.7 kg/m2 631942. 06 g 8 98 % 98 % [...] SNOMED-CT Code Diagnosis ICD10 Code Diagnosis Note [id number] [facility] [address] [address] 03/27/2022 15:10:11 03/27/2022 17:36:55 Pain of left wrist 1197146104 01231 M25.532 No acute fracture of the wrist [...] week. Pain of le ft elbow joint 8269444128 5024264 M25.522 No acute fracture of the elbow noted on x-ray. Please follow up with primary care doctor to manage this and/or continue further workup if symptoms are not improving with conservati ve measures over the next week. You may take Tylenol for pain, ice, rest and keep it elevated. Osteoarthr itis of wrist 081160134 M19.039 Health Concerns Section Related Observation LastModified by Organization Detai ls LastModified Time None Recorded Concern Status LastModified by Organization Details LastModified Time None Recorded Advance Directives Directive None Recorded Payers Encounter Date Sequence Insurance Name Policy Number Policy Vargas Covered Member ID Vargas Member ID Guarantor Name 03/27/2022 1 [place] B-[place]: [employer] Onur Colon [id number] Onur Colon 03/27/2022 2 [place] [facility] Onur Colon [id number] Onur Colon Notes Date Note Type Note Provider Name and Address Organization Details Recorded Time 03/27/2022 text/html Onur is a 76 yo left handed male M with PMH of HTN, HLD, parkinson's, GERD, here for left hand swelling that radiates up to forearm x 4 days. Here with dixie who is assisting in translation of faroese. She notes he has been avoiding using [...] Ramos, BELLO [address] [place], [address], [place] - [facility] 03/27/2022 17:32:52
--- OUTSIDE RECORDS SUMMARY | 2024-07-04 17:34 | XMS_ITS | Referral Summary ---
Author Organization [facility] Address [address] [place] [address] Care Team Providers Care Services Clerk Name Role Phone Susy Sylvester Primary Care Provider [phone] Encounters Date Type Department Care Team Description 06/05/2024 1:00 PM EDT Office Visit [facility] [address] [place] [address] [phone] Cristhian Ruff DO Parkinson's disease, unspecified whether [...] Description 10/09/2024 1:00 PM EDT Office Visit [facility] [address] [place], [place] [phone] Cristhian Ruff DO [address] [place] [address] Insurance [facility] Member Subscriber Plan / Payer (Ef fective 2023-Present) Name:Onur Yarbrough Relation to Subscriber:Self Name:Onur Yarbrough Payer ID:[id number] Group ID:Not on file Type:Not on file Address: [address] [id number] MEDICARE Care Teams Services Clerk Relationship Specialty Start Date End Date Susy Sylvester [address] [facility] [address] PCP - General Internal Medicine 06/14/23
--- OUTSIDE RECORDS SUMMARY | 2024-07-04 17:34 | XMS_ITS | Encounter Summary ---
Author Organization [facility] Address [address] [place] [address] Care Team Providers Care Customer Support Consultant Name Role Phone Rochelle Mckeon MD Primary Care Provider Un available Community, Pcp Primary Care Provider Unavailabl e Encounter Details Date Type Department Care Team Description 09/12/2017 Business Account Specialist Report Medical Records [address] [place] [address] Kelvin Jacob MD Social History Tobacco Use [...] on filedocumented in this encounter Care Teams Customer Support Consultant Relationship Specialty Start Date End Date Rochelle Mckeon MD PCP - General Internal Medicine 10/10/1603/01 Community, Pcp PCP - General Internal Medicine 03/02/21 documented as of this encounter
--- OUTSIDE RECORDS SUMMARY | 2024-07-04 17:34 | XMS_ITS | Encounter Summary ---
Author Organization [facility] Address [address] [place] [address] Care Team Providers Care Executive Director Name Role Phone Rochelle Mckeon MD Primary Care Provider Un available Community, Pcp Primary Care Provider Unavailabl e Encounter Details Date Type Department Care Team Description 06/13/2017 [facility] Medical Records [address] [place] [address] Gareth Richard DO Social History Tobacco Use [...] on filedocumented in this encounter Care Teams Executive Director Relationship Specialty Start Date End Date Rochelle Mckeon MD PCP - General Internal Medicine 10/10/1603/01 Community, Pcp PCP - General Internal Medicine 03/02/21 documented as of this encounter
--- OUTSIDE RECORDS SUMMARY | 2024-07-04 17:34 | XMS_ITS | Encounter Summary ---
Author Organization [facility] Address [address] [place] [address] Care Team Providers Care Die Casting Machine Maintainer Name Role Phone Susy Sylvester Primary Care Provider [phone] Encounter Details Date Type Department Care Team (Late st Contact Info) Description 12/21/2023 Orders Only [facility] Nuclear Medicine [address] [place] [address] Jake Angulo MD PhD [address] [place] [address] Social History Tobacco Use Types Packs/Day Years [...] PM EDT Office Visit [facility] [address] [place] [address] Cristhian Ruff DO [address] [place] [address] documented as of this encounter Visit Diagnoses Not on filedocumented in this encounter Care Teams Die Casting Machine Maintainer Relationship Specialty Start Date End Date Susy Sylvester [address] [place] [address] dr [place], [place] [address] PCP - General Internal Medicine 06/14/23 documented as of this encounter
--- OUTSIDE RECORDS SUMMARY | 2024-07-04 17:34 | XMS_ITS | Clinical Summary ---
Author Organization [facility] Facility Address [address] [place] [address], [place] [address] Care Team Providers Care Management Manager Name Role Phone Susy Sylvester MD Primary Care Provider [phone] Allergies No known active allergies Medications trihexyphenidyl [...] patient's age to complete this topic Insurance [address] [place] [id number] Medicaid [place] Care Teams Management Manager Relationship Specialty Start Date End Date Susy Sylvester MD [address] [place], [place] PCP - General Internal Medicine 03/31/22
--- OUTSIDE RECORDS SUMMARY | 2024-07-04 17:34 | XMS_ITS | Clinical Summary ---
Author Organization [facility] Address [address] [place] [address] Care Team Providers Care Psych Therapist Name Role Phone Susy Sylvester Primary Care Provider [phone] Allergies No known active allergies Medications meclizine [...] 06/05/2024 1:00 PM EDT Office Visit [facility] [address] [place] [address] Cristhian Ruff DO Parkinson's disease, unspecified whether [...] 10/09/2024 1:00 PM EDT Office Visit [facility] [address] [place] [phone] Cristhian Ruff DO [address] [place] [address] Health Maintenance Due Date Last Done Comments [...] patient's [place] [id number] [facility] MEDICARE Care Teams Psych Therapist Relationship Specialty Start Date End Date Susy Sylvester [address] [place] [address] [place] [address] PCP - General Internal Medicine 06/14/23
--- OUTSIDE RECORDS SUMMARY | 2024-07-04 17:34 | XMS_ITS | Encounter Summary ---
Author Organization [facility] Address [address] [place] [address] Care Team Providers Care Director Financial Systems Name Role Phone Rochelle Mckeon MD Primary Care Provider Un available Community, Pcp Primary Care Provider Unavailabl e Encounter Details Date Type Department Care Team Description 03/07/2017 Nutrition Technician Report Medical Records [address] [place] [address] Kelvin Jacob MD Social History Tobacco Use [...] filedocumented in this encounter Care Teams Director Financial Systems Relationship Specialty Start Date End Date Rochelle Mckeon MD PCP - General Internal Medicine 10/10/1603/01 Community, Pcp PCP - General Internal Medicine 03/02/21 documented as of this encounter
--- OUTSIDE RECORDS SUMMARY | 2024-07-04 17:34 | XMS_ITS | Clinical Summary ---
Author Organization [facility] Address [address] [place] [address] Care Team Providers Care Tandem Mill Roller Name Role Phone Community, Pcp Primary Care Provider Unavailabl e Allergies No known active allergies Medications Medication Sig Dispensed Refills Start Date End Date Status carbidopa-levodopa (SINEMET) 25-100 MG per tablet Take 1 tablet by mouth 3 times daily. 0 Active trihexyphenidyl (ARTANE) 2 MG tablet Take 2 mg by mouth 3 times daily. 0 Active atorvastatin (LIPITOR) 40 MG tablet Take 40 mg by mouth daily. 0 Active sulindac (CLINORIL) 200 MG tablet Take 200 mg by mouth 2 times daily as needed. 0 Active amoxicillin-clavulanat e (AUGMENTIN) 875-125 MG per tablet TOME PEDRO PABLO TABLETA POR V?A ORAL CADA DOCE HORAS POR 10 D? 0 03/17/2017 Active hydrochlorothiazide (HYDRODIURIL) 25 MG tablet TOME PEDRO PABLO TABLETA POR V?A ORAL TODOS LOS D? 6 03/17/2017 Active ibuprofen (ADVIL,MOTRIN) 800 MG tablet TAKE 1 TABLET WITH FOOD OR MILK NEEDED THREE TIMES A DAY ORALLY 30 DAYS 2 04/12/2017 Active pramipexole (MIRAPEX) 0.5 MG tablet TK 1 T PO TID 5 04/24/2017 Active pravastatin (PRAVACHOL) 40 MG tablet TOME PEDRO PABLO TABLETA POR V?A ORAL TODOS LOS D? 6 03/17/2017 Active Active Problems Problem Noted Date DJD (degenerative joint disease) 017 Overview: Minimal 2012, shoulders and R knee GERD (gastroesophageal reflux disease) 1 04/02/2016 Erectile dysfunction 01/31/2017 History of basal cell carcinoma 01/24/20 17 Overview: BCC 02/03 nose (nodular) History of prostate cancer 12/02/2016 Overview: adenocarcinoma 2011 Hyperlipidemia 12/02/2016 Parkinson disease Osteoarthritis of left shoulder Resolved Problems Problem Noted Date Resolved Date Basal cell carcinoma of skin of nose 03/01/2017 03/09/2018 Immunizations Name Administration Dates Next Due Influenza vaccine high dose age 65 and over 11/18 Tdap 04/20/2010 Family History Medical History Relation Name Comments CA Prostate Father Relation Name Status Comments Father Social History Tobacco Use Types Packs/Day Years Used Date Smoking Tobacco: Never Smokeless Tobacco: Never Alcohol Use Standard Drinks/Week Comments No 0 (1 standard drink = 0.6 oz pur e alcohol) Sex Assigned at Date Recorded Not on file Last Filed Vital Signs Vital Sign Reading Time Taken Comments Blood Pressure 142/80 06/20/2017 9:28 AM EDT Pulse 76 06/20/2017 9:28 AM EDT Temperature 35.9 ??C (96.7 ??F) 06/20/2017 9:28 AM ED T Respiratory Rate 16 06/20/2017 9:28 AM EDT Oxygen Saturation - - Inhaled Oxygen Concentration - - Weight 103.5 kg (228 lb 3.2 oz) 06/20/2017 9:28 AM EDT Height 175.3 cm (5' 9 ) 06/20/2017 9:28 AM EDT Body Mass Index 33.7 06/20/2017 9:28 AM EDT Plan of Treatment Health Maintenance Due Date Last Done Comments Covid-19 Vaccine (#1) 1945 HEPATITIS C SCREENING 06/01/1965 CHOLESTEROL SCREENING 1965 SHINGLES VACCINE (1 of 2) 06/01/1997 PNEUMOCOCCAL VACCINE (1 - PCV) 06/01/2012 DEPRESSION SCREEN 12/02/2017 12/02/2016 FALL RISK ASSESSMENT 12/02/2017 12/02/2016 DTAP/TDAP/TD (2 - Td or Tdap) 04/20/2020 04/20/2010 BMI CHECK/ADVISE 03/20/2024 01/19/2017, 12/02/2016 INFLUENZA (Season Ended) 2024 12/02/2016 Care Teams Tandem Mill Roller Relationship Specialty Start Date End Date Community, Pcp PCP - General Internal Medicine 03/02/21
--- OUTSIDE RECORDS SUMMARY | 2024-07-04 17:34 | XMS_ITS | Encounter Summary ---
Author Organization [facility] Address [address] [place] [address] Care Team Providers Care Inspection Engineer Name Role Phone Rochelle Mckeon MD Primary Care Provider Un available Community, Pcp Primary Care Provider Unavailabl e Encounter Details Date Type Department Care Team Description 05/08/2019 Extended Insurance Clerk Report Medical Records [address] [place] [address] Kelvin Jacob MD Social History Tobacco Use [...] on filedocumented in this encounter Care Teams Inspection Engineer Relationship Specialty Start Date End Date Rochelle Mckeon MD PCP - General Internal Medicine 10/10/1603/01 Community, Pcp PCP - General Internal Medicine 03/02/21 documented as of this encounter
== END 2024-07-04 17:36 | disposition home or self-care (01) ==
PROVIDERS: Physician Assistant; Registered Nurse Emergency; Emergency Provider Emergency Medicine; PCP Internal Medicine
DX: R60.0 Localized edema (principal); R06.02 Shortness of breath; Z03.818 Encounter for observation for suspected exposure to other biological agents ruled out; E11.9 Type 2 diabetes mellitus without complications; I10 Essential (primary) hypertension; E78.5 Hyperlipidemia, unspecified; G20.A1 Parkinson's disease without dyskinesia, without mention of fluctuations; Z79.02 Long term (current) use of antithrombotics/antiplatelets; Z79.84 Long term (current) use of oral hypoglycemic drugs; Z79.899 Other long term (current) drug therapy
CPT/HCPCS: 0241U; 36415; 71046; 80053; 81003; 83735; 83880; 84484; 85025; 85610; 93005; 99212; 99283; 99284

== ENCOUNTER → 2024-07-04 14:07 | Outpatient (BNV) | payer MEDICARE, MEDICAID, SELFPAY | PROVIDERS: PCP Internal Medicine; Visit Provider Radiology Diagnostic Radiology | DX: R06.00 Dyspnea, unspecified (principal); R60.0 Localized edema | CPT/HCPCS: 71046 ==

== ENCOUNTER → 2024-07-04 14:07 | Outpatient (BNV) | payer MEDICARE, MEDICAID, SELFPAY | PROVIDERS: Emergency Provider Emergency Medicine; PCP Internal Medicine; Visit Provider Internal Medicine Cardiovascular Disease | DX: I10 Essential (primary) hypertension (principal) | CPT/HCPCS: 93010 ==

== ENCOUNTER 2024-07-14 00:07 | Emergency (ER) | payer MEDICARE, MEDICAID, SELFPAY ==
--- NOTE | 2024-07-14 | ECG_ITS ---
Test Reason : HTN Blood Pressure : */* mmHG Vent. Rate : 72 BPM Atrial Rate : 72 BPM P-R Int : 160 ms QRS Dur : 90 ms QT Int : 398 ms P-R-T Axes : 70 9 19 degrees QTcB Int : 435 ms Normal sinus rhythm Minimal voltage criteria for LVH, may be normal variant ( R in aVL ) Borderline ECG When compared with ECG of 04-Jul-2024 14:21, No significant changes seen Referred By: Generic ED Physician Electronically Signed By: VU ORTEGA
--- NOTE | ~2024-07-14 | XR_ITS ---
CLINICAL HISTORY: soborder changed to 1V chest 2 view chest x-ray Comparison: CR/SR - XR CHEST 2V - 07/04/24 14:19 EDT Findings: No consolidation or effusion. Normal size heart. No acute fracture. IMPRESSION: 1. No acute findings. This document has been electronically signed by: Dick Babcock MD on 07/14/2024 01:13:25
[2024-07-14 00:15] VITALS: BP 174/91; PULSE 77; RESP 18; TEMP 37.1; O2SAT 96; BMI 35.2
[2024-07-14 00:58] LABS: MANUAL DIFF FLAG NO
[2024-07-14 00:59] LABS: Basophils Percent Auto 0.3 % (0-2); Eosinophils Absolute Auto 0.2 X10*3/uL (0.0-0.4); Eosinophils Percent Auto 3.2 % (0-4); Hematocrit 37.9 % (42.0-52.0); Hemoglobin 13.1 g/dl (14.0-18.0); Imm Gran Abs Auto 0.05 X10*3/uL (0.00-0.03); Imm Gran Pct Auto 0.7 % (0.0-0.4); Lymphocytes Absolute Auto 1.7 X10*3/uL (1.2-4.9); Lymphocytes Percent Auto 23.4 % (20-40); Mean Corpuscular HGB Conc 34.6 g/dl (31.0-36.0); Mean Corpuscular Hemoglobin 31.1 pg (27.0-33.0); Mean Platelet Volume 12.2 fL (9.4-12.4); Monocytes Absolute Auto 0.7 X10*3/uL (0.1-1.2); Monocytes Percent Auto 9.1 % (2-11); Neutrophils Absolute Auto 4.6 x10*3/uL (2.0-8.3); Neutrophils Percent Auto 63.3 % (45-73); Platelet Count 171 X10*3/uL (160-400); Red Blood Count 4.21 X10*6/uL (4.60-5.80); Red Cell Distribution Width 14.1 % (11.0-16.0); White Blood Count 7.3 X10*3/uL (4.8-10.8)
[2024-07-14 01:14] LABS: Alanine Aminotransferase 14 U/L (0-40); Albumin Level 4.1 g/dL (3.5-5.0); Aspartate Amino Transferase 22 U/L (5-37); Bilirubin Total 0.4 mg/dL (0.0-1.0); Blood Urea Nitrogen 23 mg/dL (9-16); Calcium 9.1 mg/dL (8.4-10.2); Creatinine Clr Calc Pharmacy 68.5; Estimated Glomerular Filt Rate > 60; Glucose Random 126 mg/dL (60-115); Total Protein 6.9 g/dL (6.5-8.0)
[2024-07-14 01:19] LABS: B Type Natriuretic Peptide 85 pg/mL (<100)
[2024-07-14 01:20] LABS: Troponin-I High Sensitivity 6.4 ng/L (<3.5-35.0)
[2024-07-14 01:35] LABS: Influenza A PCR NEGATIVE (Negative); Influenza B PCR NEGATIVE (Negative); Resp Syncy Virus RNA Qual PCR NEGATIVE (Negative); SARS COV2 PCR INHOUSE NEGATIVE (Negative)
[2024-07-14 02:16] LABS: Alkaline Phosphatase 73 U/L (39-117); Carbon Dioxide 23 mmol/L (22-29); Chloride 107 mmol/L (96-108); Potassium 3.9 mmol/L (3.3-5.1); Sodium 140 mmol/L (135-145)
[2024-07-14 02:17] LABS: Anion Gap 14 (12-20)
[2024-07-14 02:58] VITALS: BP 171/86; PULSE 69; RESP 16; O2SAT 98
--- NOTE | 2024-07-14 04:11 | ED.GENADULT ---
HPI - General Adult General Chief complaint: Weakness Stated complaint: HBP Time Seen by Provider: 07/14/24 04:10 History of Present Illness ED Provider: Carmen HALL narrative: The patient is a 79-year-old male with Parkinson's disease. He lives at home. His granddaughter is 1 of his caretakers. Apparently he had a high blood pressure reading at home tonight. His granddaughter says that he has been trying to sleep but his Parkinson's had caused a lot of shaking and this woke him up and he said he did not feel very well. She has checked his blood pressure and it was 202/99. He was complaining of some abdominal discomfort. He also complained of feeling somewhat nauseated and short of breath and she drove him to the hospital for evaluation. He has been here 2 times with similar complaints in the last 12 days. This is the 3rd ER visit with similar complaints during this period of time. He had a CAT scan was abdomen of the 1st of these visits that was unremarkable. Related Data Home Medications ?Medication ?Instructions ?Recorded ?Confirmed zolpidem 5 mg tablet 5 mg PO BEDTIME 05/24/24 06/06/24 furosemide 20 mg tablet (Lasix) 20 mg PO BID PRN 06/06/24 06/06/24 Previous Rx's ?Medication ?Instructions ?Recorded acetaminophen 500 mg tablet 500 mg PO Q6H PRN pain #30 tabs 09/07/21 diclofenac sodium 1 % topical gel 2 g topical QID PRN Arthritis pain 10/16/23 (Voltaren Arthritis Pain) 30 days #100 grams adult diapers pull-ups #240 ea 11/22/23 underpads (Bed Underpads) #240 ea 03/19/24 walker #1 ea 03/19/24 allopurinol 100 mg tablet 200 mg (2 x 100 mg) PO DAILY 90 04/04/24 days #180 tabs compression stockings #2 ea 04/12/24 atorvastatin 40 mg tablet 40 mg PO DAILY 90 days #90 tabs 04/15/24 meclizine 25 mg tablet 25 mg PO TID PRN dizziness 7 days 04/29/24 #21 tabs lisinopril 40 mg tablet 40 mg PO DAILY 90 days #90 tabs 05/03/24 commode (bedside commode) #1 ea 05/06/24 cholecalciferol (vitamin D3) 25 25 mcg PO DAILY 90 days #90 caps 05/19/24 mcg (1,000 unit) capsule pramipexole 0.5 mg tablet 0.5 mg PO TID 15 days #45 tabs 05/19/24 sennosides 8.6 mg-docusate sodium 2 tab-cap (2 x 8.6-50 mg) PO 05/19/24 50 mg capsule (Senna Plus) BEDTIME 60 days #120 caps blood sugar diagnostic (Accu-Chek #100 ea 05/23/24 Guide test strips) lancets (Accu-Chek Fastclix Lancet #200 ea 05/23/24 Drum) lancing device with lancets kit #1 ea 05/23/24 (Accu-Chek FastClix Lancing Device kit) metformin 500 mg tablet,extended 500 mg PO DAILY #90 tabs 05/23/24 release 24 hr omeprazole 20 mg capsule,delayed 20 mg PO DAILY 90 days #90 caps 05/23/24 release trazodone 50 mg tablet 50 mg PO BEDTIME #90 tabs 05/23/24 albuterol sulfate 90 mcg/actuation 2 puff inhalation Q6H PRN 05/24/24 aerosol inhaler shortness of breath or wheezing #8.5 grams carbidopa 25 mg-levodopa 100 mg 2 tab PO BID 90 days #360 tabs 05/27/24 tablet blood-glucose meter (Accu-Chek #1 ea 06/06/24 Guide Glucose Meter) guaifenesin 600 mg tablet, 600 mg PO BID cough 5 days #10 tabs 06/06/24 extended release 12 hr (Mucinex) mupirocin 2 % topical ointment 1 appl topical QID #22 grams 06/06/24 fenofibrate 54 mg tablet 54 mg PO DAILY 90 days #90 tabs 06/24/24 blood pressure monitor #1 ea 07/01/24 polyethylene glycol 3350 17 17 g PO DAILY #510 grams 07/01/24 gram/dose oral powder (Miralax) furosemide 20 mg tablet (Lasix) 20 mg PO DAILY 5 days #5 tabs 07/04/24 clonazepam 0.5 mg tablet 0.5 mg PO BEDTIME 30 days #30 tabs 07/09/24 Allergies Allergy/AdvReac Type Severity Reaction Status Date / Time pravastatin Allergy Intermediate dry mouth Verified 07/14/24 00:25 Review of Systems Review of Systems: Yes all other systems are reviewed and are negative [facility] Past Medical History Medical History CHF (congestive heart failure) Type 2 diabetes mellitus with hemoglobin A1c goal of less than 7.0% New onset type 2 diabetes mellitus CKD (chronic kidney disease) stage 2, GFR 60-89 ml/min On allopurinol therapy Prostate cancer CKD (chronic kidney disease) stage 3, GFR 30-59 ml/min Skin lesion Left knee pain Chronic pain syndrome Sacroiliac dysfunction Sacroiliitis Spondylosis without myelopathy or radiculopathy, lumbar region Adult general medical exam Screening for colon cancer Leg edema Urgency incontinence Parkinsons disease Mixed hyperlipidemia Essential hypertension GERD (gastroesophageal reflux disease) Lumbar degenerative disc disease Surgical History History of esophagogastroduodenoscopy (EGD) History of cataract surgery History of colonoscopy History of basal cell carcinoma (BCC) excision History of prostatectomy Family History Family History Father No problems noted. Mother Diabetes Cancer Social History Social History Household Members Other:: granddaughter Housing: Apartment Are you a primary adult caregiver to a significant other at home: No Do you presently have visiting nurse or other home services: No Alcohol intake: former Patient Tobacco Use Status: Never used Tobacco Smoked in Last 30 Days: No e-Cigarette/Vaping Use: Never Used Second Hand Smoke Exposure: No Use of substances other than those prescribed or required for medical reasons: No Advance Directives: Yes Advance Directives on File: Yes Advance Directives Date on File: 08/18/23 Do you have a plan to hurt others: No Plan service: No Current occupational status: disabled Current occupation: lt handed Cognitive needs: Yes Hearing needs: No Vision needs: No Physical Exam ED Vital Signs: Vital Signs - 24 hr 07/14/24 00:15 07/14/24 02:58 07/14/24 04:40 Temperature 98.8 F 98.1 F Pulse Rate 77 69 74 Respiratory Rate 18 16 18 Blood Pressure 174/91 H 171/86 H 162/94 H Pulse Oximetry 96 98 97 Oxygen Delivery Method Room Air Room Air Room Air BMI result Body Mass Index 35.2 Const Other: The patient is a 79-year-old Who was awake and alert. He has tremors consistent with parkinsonism. he looks chronically ill but not obviously acutely ill. He does not seem in respiratory distress. He does not seem in pain. HENMT Other: The patient has a parkinsonian facies. The face is symmetrical. Mucous membranes moist. Eyes General: appearance normal, both eyes and all related structures Neck Neck: Yes normal visual inspection and Yes no JVD Resp Effort & Inspection: normal respiratory effort Auscultation: clear to auscultation bilaterally Cardio Rate: regular rate Rhythm: regular rhythm Heart sounds: S1 normal heart sound present and S2 normal heart sound present GI Other: The patient has the rounded, protuberant abdomen that seems soft and nondistended. The patient did not seem to have any visible signs of tenderness With palpation. Skin Other: The patient has a lot of dependent rubor to the skin of the lower legs which are chronically edematous. Patient's granddaughter reports that the appearance of the patient's legs is unchanged from baseline. The skin is otherwise unremarkable. Neuro Other: The patient is awake and alert. He has a parkinsonian tremor. He has a parkinsonian facies. eye movements are intact, face is symmetrical. Speech seems to be without aphasia or dysarthria. He has symmetrical tone in his extremities. I think he is at his neurological baseline. Extrem Other: The patient seems to have chronic edema of both lower extremities with chronic dependent rubor. Medical Decision Making Medical Decision Making MDM Narrative: The patient is a 79-year-old male with Parkinson's who comes from home, driven to the emergency room by his granddaughter, after having high blood pressure reading at home and having multiple complaints. According to the granddaughter the patient's complains tonight are very similar to the last 2 episodes he has been in the emergency room. He has had negative workups including an abdominal CT at these previous workups. His workup today does not seem very remarkable. He is not significantly hypertensive here. The granddaughter feels that he gets anxious about his health and makes a lot of complaints. She feels comfortable taking him home. My suspicion for an acute process is low. I think discharge is reasonable. Lab Data 07/14/24 00:52 07/14/24 00:52 Labs: Lab Results 07/14/24 Range/Units 00:52 WBC 7.3 (4.8-10.8) X10*3/uL RBC 4.21 L (4.60-5.80) X10*6/uL Hgb 13.1 L (14.0-18.0) g/dl Hct 37.9 L (42.0-52.0) % MCV 90.0 (80.0-98.0) fL MCH 31.1 (27.0-33.0) pg MCHC 34.6 (31.0-36.0) g/dl RDW 14.1 (11.0-16.0) % Plt Count 171 (160-400) X10*3/uL MPV 12.2 (9.4-12.4) fL Immature Gran % (Auto) 0.7 H (0.0-0.4) % Neut % (Auto) 63.3 (45-73) % Lymph % (Auto) 23.4 (20-40) % Vernon % (Auto) 9.1 (2-11) % Eos % (Auto) 3.2 (0-4) % Baso % (Auto) 0.3 (0-2) % Lymph # (Auto) 1.7 (1.2-4.9) X10*3/uL Vernon # (Auto) 0.7 (0.1-1.2) X10*3/uL Eos # (Auto) 0.2 (0.0-0.4) X10*3/uL Baso # (Auto) 0.0 (0.0-0.2) X10*3/uL Abs Immat Gran (auto) 0.05 H (0.00-0.03) X10*3/uL Absolute Neuts (auto) 4.6 (2.0-8.3) x10*3/uL Absolute Nucleated RBC 0.000 (0.0-0.012) X10*3/uL Nucleated RBC % (auto) 0.0 (0.0-0.2) /100WBC Sodium 140 (135-145) mmol/L Potassium 3.9 (3.3-5.1) mmol/L Chloride 107 (96-108) mmol/L Carbon Dioxide 23 (22-29) mmol/L Anion Gap 14 (12-20) BUN 23 H (9-16) mg/dL Creatinine 1.06 (0.5-1.4) mg/dL Estim Creat Clear Calc 68.5 Estimated GFR > 60 Random Glucose 126 H (60-115) mg/dL Calcium 9.1 D (8.4-10.2) mg/dL Total Bilirubin 0.4 (0.0-1.0) mg/dL AST 22 (5-37) U/L ALT 14 (0-40) U/L Alkaline Phosphatase 73 (39-117) U/L Troponin I High Sens 6.4 (<3.5-35.0) ng/L B-Natriuretic Peptide 85 (<100) pg/mL Total Protein 6.9 (6.5-8.0) g/dL Albumin 4.1 (3.5-5.0) g/dL Influenza Type A (PCR) NEGATIVE (Negative) Influenza Type B (PCR) NEGATIVE (Negative) RSV RNA Qual (PCR) NEGATIVE (Negative) SARS-CoV-2 RNA (RT-PCR) NEGATIVE (Negative) Discharge Plan Discharge Clinical Impression: Hypertension, Parkinson disease Patient Disposition: Home, Self-Care Additional Instructions: His testing today again seems reassuring. His blood pressure has improved. Please continue his regular medications. Please follow up with his regular doctor. Return to the emergency room if significantly worse. Prescriptions: No Action diclofenac sodium [Voltaren Arthritis Pain] 1 % gel 2 g topical QID PRN (Reason: Arthritis pain) 30 Days Qty: 100 1RF Rx Instructions: apply to single elbow, wrist or hand; for hand includes palm/fingers/back of hand atorvastatin 40 mg tablet 40 mg PO DAILY 90 Days Qty: 90 2RF meclizine 25 mg tablet 25 mg PO TID PRN (Reason: dizziness) 7 Days Qty: 21 0RF lisinopril 40 mg tablet 40 mg PO DAILY 90 Days Qty: 90 1RF (DME) bedside commode Kit See Rx Instructions .Route Qty: 1 0RF Rx Instructions: As directed pramipexole 0.5 mg tablet 0.5 mg PO TID 15 Days Qty: 45 0RF cholecalciferol (vitamin D3) 25 mcg (1,000 unit) capsule 25 mcg PO DAILY 90 Days Qty: 90 1RF Senna Plus 8.6-50 mg capsule 2 tab-cap PO BEDTIME 60 Days Qty: 120 1RF carbidopa-levodopa 25-100 mg tablet 2 tab PO BID 90 Days Qty: 360 1RF guaifenesin [Mucinex] 600 mg tablet extended release 12hr 600 mg PO BID 5 Days Qty: 10 0RF fenofibrate 54 mg tablet 54 mg PO DAILY 90 Days Qty: 90 1RF (DME) blood pressure monitor Kit See Rx Instructions .Route Qty: 1 0RF Rx Instructions: As directed clonazepam 0.5 mg tablet 0.5 mg PO BEDTIME 30 Days Qty: 30 0RF polyethylene glycol 3350 [Miralax] 17 gram/dose powder 17 g PO DAILY Qty: 510 0RF furosemide [Lasix] 20 mg tablet 20 mg PO DAILY 5 Days Qty: 5 0RF acetaminophen 500 mg tablet 500 mg PO Q6H PRN (Reason: pain) Qty: 30 0RF (DME) adult diapers pull-ups XL See Rx Instructions .Route .MEDSUPPLY Qty: 240 11RF Rx Instructions: As directed allopurinol 100 mg tablet 200 mg PO DAILY 90 Days Qty: 180 4RF (DME) underpads [Bed Underpads] Pad See Rx Instructions .Route Qty: 240 11RF Rx Instructions: Use 8 pads per day (DME) walker Misc See Rx Instructions .Route Qty: 1 0RF Rx Instructions: walker with seat and wheels (DME) compression stockings 25-30 mmhg See Rx Instructions .Route .MEDSUPPLY Qty: 2 0RF Rx Instructions: As directed zolpidem 5 mg tablet 5 mg PO BEDTIME albuterol sulfate 90 mcg/actuation HFA aerosol inhaler 2 puff inhalation Q6H PRN (Reason: shortness of breath or wheezing) Qty: 8.5 0RF furosemide [Lasix] 20 mg tablet 20 mg PO BID PRN metformin 500 mg tablet extended release 24 hr 500 mg PO DAILY Qty: 90 1RF omeprazole 20 mg capsule,delayed release(DR/EC) 20 mg PO DAILY 90 Days Qty: 90 3RF trazodone 50 mg tablet 50 mg PO BEDTIME Qty: 90 1RF (DME) lancets [Accu-Chek Fastclix Lancet Drum] Misc See Rx Instructions .ROUTE .MEDSUPPLY Qty: 200 0RF Rx Instructions: As directed (DME) lancing device with lancets [Accu-Chek FastClix Lancing Dev] Kit See Rx Instructions .ROUTE .MEDSUPPLY Qty: 1 0RF Rx Instructions: As directed (DME) Accu-Chek Guide test strips Strip See Rx Instructions .Route Qty: 100 0RF Rx Instructions: As directed mupirocin 2 % ointment 1 appl topical QID Qty: 22 3RF (DME) blood-glucose meter [Accu-Chek Guide Glucose Meter] Misc See Rx Instructions .ROUTE .MEDSUPPLY Qty: 1 0RF Rx Instructions: As directed Interventions: ED Discharge Assessment Last Done: 07/14/24 04:40 Discharge Date/Time: 07/14/24 04:41 Print Language: Citizen Of [place]
[2024-07-14 04:40] VITALS: BP 162/94; PULSE 74; RESP 18; TEMP 36.7; O2SAT 97
== END 2024-07-14 04:41 | disposition home or self-care (01) ==
PROVIDERS: Emergency Provider Emergency Medicine; PCP Internal Medicine
DX: G20.A1 Parkinson's disease without dyskinesia, without mention of fluctuations (principal); I13.0 Hypertensive heart and chronic kidney disease with heart failure and stage 1 through stage 4 chronic kidney disease, or unspecified chronic kidney disease; E11.22 Type 2 diabetes mellitus with diabetic chronic kidney disease; N18.30 Chronic kidney disease, stage 3 unspecified; I50.9 Heart failure, unspecified; R06.02 Shortness of breath; R11.0 Nausea; Z03.818 Encounter for observation for suspected exposure to other biological agents ruled out
CPT/HCPCS: 0241U; 71045; 71046; 80053; 83880; 84484; 85025; 93005; 99283; 99285

== ENCOUNTER → 2024-07-14 00:40 | Outpatient (BNV) | payer MEDICARE, MEDICAID, SELFPAY | PROVIDERS: PCP Internal Medicine; Visit Provider Student in an Organized Health Care Education/Training Program | DX: R06.02 Shortness of breath (principal) | CPT/HCPCS: 71045 ==

== ENCOUNTER → 2024-07-14 00:46 | Outpatient (BNV) | payer MEDICARE, MEDICAID, SELFPAY | PROVIDERS: Emergency Provider Emergency Medicine; PCP Internal Medicine; Visit Provider Internal Medicine | DX: I10 Essential (primary) hypertension (principal) | CPT/HCPCS: 93010 ==

== ENCOUNTER 2024-07-17 10:24 | Outpatient (REF) | payer MEDICARE, MEDICAID, SELFPAY ==
--- NOTE | ~2024-07-17 | US_ITS ---
EXAMINATION: US LOWER EXTREMITY VENOUS (REFLUX EXAM), BILATERAL CLINICAL INFORMATION: Varices. COMPARISON: None. TECHNIQUE: Color flow triplex imaging and compression Doppler was performed to evaluate both the deep and the superficial systems bilaterally. To evaluate the superficial system, the examination was performed in the upright position. Color-flow Doppler ultrasound and compression ultrasound were utilized. In addition, maneuvers were utilized to demonstrate reflux. FINDINGS: 1. DEEP VENOUS ULTRASOUND OF THE RIGHT LOWER EXTREMITY: Common Femoral Vein: Compressible, normal respiratory variation and augmented flow. Femoral Vein: Compressible, normal color flow and augmentation. Popliteal Vein: Compressible, normal augmentation. Deep Reflux: There is no evidence of reflux in the deep system in either the common femoral vein, superficial femoral or the popliteal vein. There is a 5.6 cm lobulated anechoic lesion in the right popliteal fossa without flow on color Doppler interrogation. 2. SUPERFICIAL ULTRASOUND WITH DOPPLER OF RIGHT LOWER EXTREMITY: GREAT SAPHENOUS VEIN: Saphenofemoral Junction: 0.6 cm; Reflux: 0 ms Proximal Thigh: 0.4 cm; Reflux: 0 ms Mid Thigh: 0.4 cm; Reflux: 0 ms Distal Thigh: 0.2 cm; Reflux: 0 ms At Knee: 0.2 cm; Reflux: 2088 ms Proximal Calf: 0.2 cm; Reflux: 0 ms Mid Calf: 0.2 cm; Reflux: 0 ms Distal Calf: 0.3 cm; Reflux: 1560 ms DUPLICATED MEDIAL GREAT SAPHENOUS VEIN: Diameter: None imaged Reflux: NA DUPLICATED LATERAL GREAT SAPHENOUS VEIN: Diameter: 0.3 cm. Reflux: NA SMALL SAPHENOUS VEIN: Saphenopopliteal Junction: 0.3 cm; Reflux: 0 ms Proximal: 0.3 cm; Reflux: 0 ms Distal: 0.2 cm; Reflux: 0 ms VEIN OF GIACOMINI: Size: 0.3 cm. Reflux: NA PERFORATORS: Location: Mid calf. Size: 0.5 cm. Reflux: NA VARICOSITIES: Location: Distal thigh. Size: 0.3 cm. Reflux: NA 3. DEEP VENOUS ULTRASOUND OF THE LEFT LOWER EXTREMITY: Common Femoral Vein: Compressible, normal respiratory variation and augmented flow. Femoral Vein: Compressible, normal color flow and augmentation. Popliteal Vein: Compressible, normal augmentation. Deep Reflux: There is no evidence of reflux in the deep system in either the common femoral vein, superficial femoral or the popliteal vein. There is no evidence of a Bach's cyst. 4. SUPERFICIAL ULTRASOUND WITH DOPPLER OF LEFT LOWER EXTREMITY: GREAT SAPHENOUS VEIN: Saphenofemoral Junction: 0.7 cm; Reflux: 0 ms Proximal Thigh: 0.3 cm; Reflux: 1828 ms Mid Thigh: 0.3 cm; Reflux: 0 ms Distal Thigh: 0.3 cm; Reflux: 0 ms At Knee: 0.3 cm; Reflux: 0 ms Proximal Calf: 0.2 cm; Reflux: 0 ms Mid Calf: 0.2 cm; Reflux: 0 ms Distal Calf: 0.3 cm; Reflux: 1348 ms DUPLICATED MEDIAL GREAT SAPHENOUS VEIN: Diameter: 0.2 cm. Reflux: NA DUPLICATED LATERAL GREAT SAPHENOUS VEIN: Diameter: None imaged. Reflux: NA SMALL SAPHENOUS VEIN: Saphenopopliteal Junction: 0.2 cm; Reflux: 0 ms Proximal: 0.3 cm; Reflux: 0 ms Distal: 0.3 cm; Reflux: 0 ms VEIN OF GIACOMINI: Size: NA Reflux: NA PERFORATORS: Location: Small saphenous vein, mid segment. Size: 0.2 cm. Reflux: NA VARICOSITIES: Location: None Imaged Size: NA Reflux: NA US/US venous duplex LE BI IMPRESSION: Right: Venous insufficiency, great saphenous vein at the knee and the ankle. Perforators and varices without reflux. 5.6 cm right popliteal cyst.. Left: Venous insufficiency, great saphenous vein at the proximal thigh and ankle region. Perforators without reflux in the mid small saphenous vein. Electronically signed by: Imer De La Paz MD 07/19/2024 08:05 AM EDT
--- OUTSIDE RECORDS SUMMARY | 2024-07-17 11:45 | XMS_ITS | Clinical Summary ---
Author Organization [facility] Address [address] [place] [address] Care Team Providers Care Mounter Name Role Phone Community, Pcp Primary Care [...] INFLUENZA (Season Ended) 2024 12/02/2016 Care Teams Mounter Relationship Specialty Start Date End Date Community, Pcp PCP - General Internal Medicine 03/02/21
--- OUTSIDE RECORDS SUMMARY | 2024-07-17 11:45 | XMS_ITS | Encounter Summary ---
Author Organization [facility] [employer] Address [address] [place] [address] Care Team Providers Care Mica Miner Blasting Name Role Phone Rochelle Mckeon MD Primary Care Provider Un available Community, Pcp Primary Care Provider Unavailabl e Encounter Details Date Type Department Care Team Description 05/08/2019 Head Animal Keeper Report Medical Records [address] [place] [address] Kelvin Jacob MD Social History Tobacco Use [...] on filedocumented in this encounter Care Teams Mica Miner Blasting Relationship Specialty Start Date End Date Rochelle Mckeon MD PCP - General Internal Medicine 10/10/1603/01 Community, Pcp PCP - General Internal Medicine 03/02/21 documented as of this encounter
--- OUTSIDE RECORDS SUMMARY | 2024-07-17 11:45 | XMS_ITS | Data Portability ---
Author Organization [facility] [id number] Address [address] [place] [address] Care Team Providers Care Design Drafter Name Role Phone [facility] Primary Care Provider [phone] Assessment No assessment recorded. Plan of Treatment Reminders Order Date Submit Date Provider Last Modified By Organization Details Last Modified Time Details Appointments None record ed. Lab None record ed. Referral None record ed. Procedures None record ed. Surgeries None record ed. Imaging XR, elbow, 3 or more view 023 03/27/19 [facility], [address] [place], [address], 17:46:19 XR, wrist, 3 or more view 023 03/27/19 [facility], [address] [place], [address], 3 17:45:16 Medication Orders None record ed. Patient TargetsNo targets recorded. Patient InstructionsNo instructions recorded. Reason for Referral None Reported. Results Created Date Observation Date Name Description Value Unit Range Abnormal Flag Note LastModifiedBy Organization Detail LastModifiedTime 03/27/19 23 03/27/2022 XR, wrist , 3 or more view No observ ation record ed. [email or web address] 1 [facility] [address] [place], [address], 03/27/2022 17:56:06 03/27/19 23 03/27/2022 XR, elbow , 3 or more view No observ ation record ed. [email or web address] 1 [facility] [address] [place], [address], 03/27/2022 17:56:07 Result Notes None recorded. Problems Name Problem SNOMED Code Status Onset Date Resolution Date Notes Provider Name and Address Organization Details Recorded Time Hypercholestero lemia 40333039 Active 2022 LES VERENICE null, [place] - [facility] 3 15:46:31 Hypertensive disorder 80633114 Active 2022 LES VERENICE null, [place] - [facility] 3 15:46:39 Parkinson's disease 07811437 Active 2022 LES VERENICE null, PA - [...] completed [email or web address] [facility] [address] [place], [address], 03/27/2022 17:56:06 03/27/2022 XR, elbow, 3 or more view completed [email or web address] [facility] [address] [place], [address], 03/27/2022 17:56:07 Procedure Notes None recorded. Medical [...] Updated DateTime 3 172.72 cm 34.7 kg/m2 660516. 06 g 8 98 % 98 % [...] SNOMED-CT Code Diagnosis ICD10 Code Diagnosis Note [id number] [facility] [id number] [id number] 03/27/2022 15:10:11 03/27/2022 17:36:55 Pain of left wrist 6288127796 44631 M25.532 No acute fracture of the wrist [...] week. Pain of le ft elbow joint [id number] M25.522 No acute fracture of the elbow noted on x-ray. Please follow up with primary care doctor to manage this and/or continue further workup if symptoms are not improving with conservati ve measures over the next week. You may take Tylenol for pain, ice, rest and keep it elevated. Osteoarthr itis of wrist 002085148 M19.039 Health Concerns Section Related Observation LastModified by Organization Detai ls LastModified Time None Recorded Concern Status LastModified by Organization Details LastModified Time None Recorded Advance Directives Directive None Recorded Payers Encounter Date Sequence Insurance Name Policy Number Policy Vargas Covered Member ID Vargas Member ID Guarantor Name 03/27/2022 1 [place] [employer] Onur Colon [id number] Onur Colon 03/27/2022 2 [place] [facility] Onur Colon [id number] Onur Colon Notes Date Note Type Note Provider Name and Address Organization Details Recorded Time 03/27/2022 text/html Onur is a 76 yo left handed male M with PMH of HTN, HLD, parkinson's, GERD, here for left hand swelling that radiates up to forearm x 4 days. Here with dixie who is assisting in translation of belarusian. She notes he has been avoiding using [...] Ramos, BELLO [address] [place], [address], [place] - [facility] 03/27/2022 17:32:52
--- OUTSIDE RECORDS SUMMARY | 2024-07-17 11:45 | XMS_ITS | Clinical Summary ---
Author Organization [facility] Address [address] [place] [address], [place] [address] Care Team Providers Care Overedger Name Role Phone Susy Sylvester MD Primary Care Provider [phone] Allergies No known active allergies Medications trihexyphenidyl [...] patient's age to complete this topic Insurance [address] [place] [id number] [place] Care Teams Overedger Relationship Specialty Start Date End Date Susy Sylvester MD [address] [place], [place] PCP - General Internal Medicine 03/31/22
--- OUTSIDE RECORDS SUMMARY | 2024-07-17 11:45 | XMS_ITS | Encounter Summary ---
Author Organization [facility] Address [address] [place] [address] Care Team Providers Care Patrol Community Service Officer Name Role Phone Susy Sylvester Primary Care Provider [phone] Encounter Details Date Type Department Care Team (Late st Contact Info) Description 12/21/2023 Orders Only [facility] Nuclear Medicine [address] [place] [address] Jake Angulo MD PhD [address] [place] [address] Social History Tobacco Use Types Packs/Day Years [...] Description 10/09/2024 1:00 PM EDT Office Visit [facility] Neurology Clinic [address] [place] [address] Cristhian Ruff DO [address] [place] [address] documented as of this encounter Visit Diagnoses Not on filedocumented in this encounter Care Teams Patrol Community Service Officer Relationship Specialty Start Date End Date Susy Sylvester [address] [place] [address] dr [place], [place] [address] PCP - General Internal Medicine 06/14/23 documented as of this encounter
--- OUTSIDE RECORDS SUMMARY | 2024-07-17 11:45 | XMS_ITS | Encounter Summary ---
Author Organization [facility] Address [address] [place] [address] Care Team Providers Care Aerospace Project Engineer Name Role Phone Rochelle Mckeon MD Primary Care Provider Un available Community, Pcp Primary Care Provider Unavailabl e Encounter Details Date Type Department Care Team Description 09/27/2018 Sheet Finisher Report Medical Records [address] [place] [address] Kelvin Jacob MD Social History Tobacco Use [...] on filedocumented in this encounter Care Teams Aerospace Project Engineer Relationship Specialty Start Date End Date Rochelle Mckeon MD PCP - General Internal Medicine 10/10/1603/01 Community, Pcp PCP - General Internal Medicine 03/02/21 documented as of this encounter
--- OUTSIDE RECORDS SUMMARY | 2024-07-17 11:45 | XMS_ITS | Encounter Summary ---
Author Organization [employer] [facility] Address [address] [place] [address] Care Team Providers Care Loan Documentation Specialist Name Role Phone Rochelle Mckeon MD Primary Care Provider Un available Community, Pcp Primary Care Provider Unavailabl e Encounter Details Date Type Department Care Team Description 03/07/2017 Oven Tender Bagels Report Medical Records [address] [place] [id number] Kelvin Jacob MD Social History Tobacco Use [...] on filedocumented in this encounter Care Teams Loan Documentation Specialist Relationship Specialty Start Date End Date Rochelle Mckeon MD PCP - General Internal Medicine 10/10/1603/01 Community, Pcp PCP - General Internal Medicine 03/02/21 documented as of this encounter
--- OUTSIDE RECORDS SUMMARY | 2024-07-17 11:45 | XMS_ITS | Encounter Summary ---
Author Organization [facility] Address [address] [place] [address] Care Team Providers Care Photo Optics Technician Name Role Phone Rochelle Mckeon MD Primary Care Provider Un available Community, Pcp Primary Care Provider Unavailabl e Reason for Visit * Reason Onset Date Comments Laborer Shellfish Processing Feedback 12/05/2016 Urology Encounter Details Date Type Department Care Team Description 12/05/2016 Telephone Adult Medicine [address] [id number] Tammy Gallardo DO Laborer Shellfish Processing Feedback (Urology) Social History Tobacco Use Types Packs/Day Years Used Date Smoking Tobacco: Never Sex Assigned at Date Recorded Not on file documented as of this encounter Miscellaneous Notes * Telephone Encounter - Tammy Lawson DO - 12/06/2016 1:40 PM EDT They aren't available. Done in ID * Telephone Encounter - Juan Luis Smith - 12/06/2016 9:27 AM EDT If possible could these be placed in [facility] so we can schedule appt. Thanks * Telephone Encounter - Tammy Lawson DO - 12/05/2016 3:16 PM EDT Pathology may be in ID * Telephone Encounter - Juan Luis Smith [...] on filedocumented in this encounter Care Teams Photo Optics Technician Relationship Specialty Start Date End Date Rochelle Mckeon MD PCP - General Internal Medicine 10/10/1603/01 [facility], Pcp PCP - General Internal Medicine 03/02/21 documented as of this encounter
--- OUTSIDE RECORDS SUMMARY | 2024-07-17 11:45 | XMS_ITS | Data Portability ---
Author Organization [place] [facility] Address [address] [place] [phone] Assessment Encounter Date Assessment Date Assessment LastModified by Organization Details LastModified Time 10/30/2023 10/30/2023 78 year old Turkish speaking male with a history of dementia [...] contra st 2023 024 [email or web address] [facility], [address] [place] [address], [phone], 4 11:35:27 CT, maxill ofacia l, w/o contra st 2023 024 [facility], [address] [place] [address], [phone], 4 10:11:43 Medication Orders doxycy maciel hyclat e 100 mg tablet 2023 [facility], [address] [place] [address], [id number], 4 10:36:41 flutic asone propio mynor 50 mcg/ac tuatio n nasal spray, suspen padmini 2023 [facility], [address] [place] [address], [id number], 4 14:57:14 Patient TargetsNo targets recorded. Patient InstructionsNo instructions recorded. Reason for Referral None Reported. Results Created Date Observation Date Name Description Value Unit Range Abnormal Flag Note LastModifiedBy Organization Detail LastModifiedTime 12/08/[address], sinus es, w/o contr ast No observ ation record ed. [email or web address] [facility] [address], [address], 12/08/2023 11:35:24 Result Notes None recorded. Problems Name Problem SNOMED Code Status Onset Date Resolution Date Notes Provider Name and Address Organization Details Recorded Time Nasal congestion 91632215 Active JAYSON SHIELDS MD [address] [place] [address], [phone], [facility] - [facility] 4 11:58:59 Chronic maxillary sinusitis 63744366 Active JAYSON SHIELDS MD [address] [facility], [place], [address], [place] [facility] 4 12:00:46 Chronic rhinitis 90768437 Active 024 JAYSON SHIELDS MD [address] [facility], [place], [address], [place] - [facility] 4 12:01:02 Chronic sinusitis 57819904 Active 024 JAYSON SHIELDS MD [address] [facility] [place], [place], [address], [place] - [facility] 4 12:01:02 Polyp of nasal cavity 491974848 Active 024 JAYSON SHIELDS MD [address] [facility], [place], [address], [place] - [facility] 4 13:04:18 Parkinson's disease 01928212 Active 024 JAYSON SHIELDS MD [address] [facility], [place], [address], [place] - [facility] 4 11:34:00 Impaired cognition 120493171 Active 024 JAYSON SHIELDS MD [address] [facility], [place], [address], [place] - [facility] 4 11:34:12 Problem Notes None recorded. Procedures Surgical History Date Name Laterality Status Provider Name and Address Organization Details Recorded Time 4 JMSNasal/Sinus Endoscopy completed JAYSON ALEXANDER MD [address], [address], [place] - [facility] 10/30/2023 12:04:04 Cataract Surgery completed Deny Blanca [place] - [facility] 10/30/2023 11:20:20 excision of basal cell carcinoma completed Deny Blanca [place] [facility] 10/30/2023 11:20:58 Imaging Results Imaging Date Name Status LastModified by Organiz ation Details LastModified Time 12/08/2023 CT, sinuses, w/o contrast completed rogerio [facility] [address], [place], [address], 12/08/2023 11:35:24 Procedure Notes None recorded. Medical [...] Updated DateTime 10/30/2023 172.72 cm 32.8 kg/m2 39587.95 g Deny Blanca [place] - [facility] 10/30/2023 11:37:14 Social History None recorded. Functional Status None recorded. Mental Status None recorded. Family History Nothing Reported. Medical History No medical history recorded. Past Encounters Encounter ID Performer Location Encounter Start Date Encounter Closed Date Diagnosis/Indication Diagnosis SNOMED-CT Code Diagnosis ICD10 Code Diagnosis Note [id number] JAYSON BARRY MD [facility] [address] [address] 10/30/2023 11:00:35 10/30/2023 12:05:28 Nasal congestion 03923626 R09.81 Chronic [place] xillary sinusitis 57700568 J32.0 Chronic rhinitis 1783700 6 J31.0 Polyp of nasal cavity 73 0200190 J33.0 [id number] JAYSON BARRY MD [facility] [address] [place] [address] 12/08/2023 10:32:17 12/08/2023 16:44:16 Chronic sinusitis 25399745 J32.9 Parkinson's disease 4904 9000 G20.A1 Impaired cognition 64767 6002 R41.89 Health Concerns Section Related Observation LastModified by Organization Detai ls LastModified Time None Recorded Concern Status LastModified by Organization Details LastModified Time None Recorded Advance Directives Directive None Recorded Payers Encounter Date Sequence Insurance Name Policy Number Policy Vargas Covered Member ID Vargas Member ID Guarantor Name 10/30/2023 2 [place] [id number] Onur Colon [id number] Onur Colon 10/30/2023 1 MEDIC[place] B-[place]: [facility] [employer] Onur Colon [id number] Onur Colon 12/08/2023 2 [place] Onur Colon [id number] Onur Colon 12/08/2023 1 [place] [employer] Onur Colon [id number] Onur Colon Notes Date Note Type [...] unfortunately did not improve his symptoms. His unarenqt-uj-zrt and son help translate for him. JAYSON ALEXANDER MD [address], [address], [place] - [facility] 10/30/2023 13:04:39 12/08/2023 text/html Family notes kesha t patient feels improved following the antibiotics and nasal steroids. Previously noted to have incidental findings of polyps and hyperdense secretions.No other change in his history prior visit78 year old Turkish speaking male with a history of dementia [...] surgery given to family JAYSON ALEXANDER MD [address] [place] [address],[place] [address], [place], [address], [facility] - [facility] 12/08/2023 11:35:55
--- OUTSIDE RECORDS SUMMARY | 2024-07-17 11:46 | XMS_ITS | Clinical Summary ---
Author Organization [facility] Address [address] [place] [address] Care Team Providers Care Senior Administrative Assistant Name Role Phone Mika ArthurteiSusy Primary Care Provider [phone] Allergies No known active allergies Medications meclizine (ANTIVERT) 25 mg tablet SMARTSI Tablet(s) By Mouth 3 Times Daily PRN 10/11/2023 Active carbidopa-levod opa (SINEMET) 25-100 mg per tablet Take 1 tablet by mouth 3 times daily. Active lisinopriL (PRINIVIL,ZESTR IL) 40 mg tablet 40 mg once a day. 03/16/2023 Active Senna-S 8.6-50 mg SMARTSI Tablet(s) By Mouth Every Night 11/21/2023 Active amLODIPine (NORVASC) 5 mg tablet [...] SMARTSI Tablet(s) By Mouth Daily 09/25/2023 Active metFORMIN ER (GLUCOPHAGE XR) 500 mg tablet 500 mg. 05/23/2024 Activ e Myrbetriq 25 mg tablet Take 1 tablet by mouth once a day. Active carbidopa-levod opa (SINEMET) 25-100 mg per tablet Take 2 tablets by mouth 3 times a day for 7 days, THEN 2.5 tablets 3 times a day for 7 days, THEN 3 tablets 3 times a day. 1175 tablet 06/05/2024 10/18/19 25 Active pramipexole (MIRAPEX) 0.25 mg tablet Take 1 tablet (0.25 mg total) by mouth 3 times a day for 7 days, THEN 1 tablet (0.25 mg total) 2 (two) times a day for 7 days, THEN 1 tablet (0.25 mg total) once a day for 7 days. 42 tablet 06/05/2024 06/27/19 25 Encounters Date Type Department Care Team Description 06/05/2024 1:00 PM EDT Office Visit [facility] [address] [place] [address] Cristhian Ruff DO Parkinson's disease, unspecified whether [...] Description 10/09/2024 1:00 PM EDT Office Visit [facility] [address] [place] [address] Cristhian Ruff DO [address] [place] [address] Health Maintenance Due Date Last Done Comments [...] patient's age to [place] [id number] [facility] MEDICARE Care Teams Senior Administrative Assistant Relationship Specialty Start Date End Date Susy Sylvester [address] [place] [address] [place] [address] PCP - General Internal Medicine 06/14/23
--- OUTSIDE RECORDS SUMMARY | 2024-07-17 11:46 | XMS_ITS | Referral Summary ---
Author Organization [facility] Address [address] [place] [address] Care Team Providers Care Conceptor Name Role Phone Susy Sylvester Primary Care Provider [phone] Encounters Date Type Department Care Team Description 06/05/2024 1:00 PM EDT Office Visit [facility] [address] [place] [phone] Cristhian Ruff DO Parkinson's disease, unspecified whether [...] 7 days. 42 tablet 06/05/2024 06/27/19 25 Social History Tobacco Use Types [...] Description 10/09/2024 1:00 PM EDT Office Visit [facility] Neurology Clinic [address] [place] [address] Cristhian Ruff DO [address] [place] [address] Insurance [facility] MEDICARE Care Teams Conceptor Relationship Specialty Start Date End Date Susy Sylvester [address] [facility] [address] Oscar [place], [place] [address] PCP - General Internal Medicine 06/14/23
== END 2024-07-17 10:25 | disposition home or self-care (01) ==
LOC: HO.US 10:24
PROVIDERS: PCP Internal Medicine; Visit Provider Physician Assistant Surgical
DX: I83.11 Varicose veins of right lower extremity with inflammation (principal); I83.12 Varicose veins of left lower extremity with inflammation
CPT/HCPCS: 93970

== ENCOUNTER → 2024-07-17 10:27 | Outpatient (BNV) | payer MEDICARE, MEDICAID, SELFPAY | PROVIDERS: PCP Internal Medicine; Visit Provider Radiology Diagnostic Radiology | DX: I83.11 Varicose veins of right lower extremity with inflammation (principal); M71.21 Synovial cyst of popliteal space [Baker], right knee | CPT/HCPCS: 93970 ==

== ENCOUNTER 2024-07-18 13:14 | Outpatient (AMB) | payer MEDICARE, MEDICAID, SELFPAY ==
[2024-07-18 13:23] VITALS: BP 146/90; BMI 34.4
--- NOTE | 2024-07-18 13:23 | A.OFFPC_ITS ---
Vital Signs 07/18/24 13:23 Height 5 ft 8 in Weight 226 lb BMI 34.4 BP 146/90 H Blood Pressure Location Lt brachial Position Sitting Intake Visit Reasons: bp Intake Note: Patient here for a follow up bp Liquefaction Supervisor Required: No Accompanied by: Grand Child Allergies pravastatin Allergy (Intermediate, Verified 07/18/24 13:37) dry mouth Medication List - Last Reconciled 07/18/24 by Susy Harrington MD [adult diapers pull-ups As directed] albuterol sulfate 90 mcg/actuation 2 puffs inhalation Q6H PRN allopurinol 200 mg (2 x 100 mg) PO DAILY 90 days atorvastatin 40 mg PO DAILY 90 days blood pressure monitor As directed blood sugar diagnostic (Accu-Chek Guide test strips) As directed blood-glucose meter (Accu-Chek Guide Glucose Meter) As directed carbidopa-levodopa 25-100 mg 2 tabs PO BID 90 days cholecalciferol (vitamin D3) 25 mcg PO DAILY 90 days clonazepam 0.5 mg PO BEDTIME 30 days commode (bedside commode) As directed [compression stockings As directed] diclofenac sodium 1% (Voltaren Arthritis Pain) 2 grams topical QID PRN 30 days fenofibrate 54 mg PO DAILY 90 days furosemide (Lasix) 20 mg PO BID PRN lancets (Accu-Chek Fastclix Lancet Drum) As directed lancing device with lancets (Accu-Chek FastClix Lancing Device kit) As directed lisinopril 40 mg PO DAILY 90 days metformin ER 500 mg PO DAILY mupirocin 2% 1 appl topical QID omeprazole 20 mg PO DAILY 90 days polyethylene glycol 3350 (Miralax) 17 grams PO DAILY sennosides-docusate sodium 8.6-50 mg (Senna Plus) 2 tab-caps (2 x 8.6-50 mg) PO BEDTIME 60 days trazodone 50 mg PO BEDTIME underpads (Bed Underpads) Use 8 pads per day walker walker with seat and wheels Tobacco use date assessed: 04/12/24 Dental Screening Dental Screen Date: 05/23/24 HPI HPI Comments History of Present Illness Details The patient is a 79-year-old male presenting with multiple complaints including increased tremors, insomnia, and elevated blood pressure. The increase in tremors began following the uptitration of carbidopa/levodopa to three doses per day, noted over the past two months. Despite current maximum dosage of lisinopril, his blood pressure remains elevated at 146/90, suggesting the need for additional antihypertensive medication. The patient also reports persistent insomnia despite trazodone 50 mg, with consideration for modifying therapy to venlafaxine due to concurrent depression (PHQ-9 score 16) and anxiety symptoms. The patient's chronic medical conditions include Parkinson's Disease, for which carbidopa/levodopa has been adjusted, Type 2 Diabetes managed with metformin, hyperlipidemia managed with atorvastatin and fenofibrate, and gout treated with allopurinol. He is under the care of a yard engineer for congestive heart failure. Current medications include pravastatin, clonazepam, omeprazole, and MiraLAX and senna for constipation. A request has been made for a neurologist referral and potential MRI to further manage Parkinson's symptoms. He also has congestive heart failure follow by cardiology and has not gain 5 lb in a week. Was advised to weight himself daily. Also has chronic kidney disease stage 3 follow by Nephrology. [facility] Medical History (Updated 07/18/24 @ 16:41 by Susy Harrington MD) CHF (congestive heart failure) Type 2 diabetes mellitus with hemoglobin A1c goal of less than 7.0% New onset type 2 diabetes mellitus CKD (chronic kidney disease) stage 2, GFR 60-89 ml/min On allopurinol therapy Prostate cancer CKD (chronic kidney disease) stage 3, GFR 30-59 ml/min Skin lesion Left knee pain Chronic pain syndrome Sacroiliac dysfunction Sacroiliitis Spondylosis without myelopathy or radiculopathy, lumbar region Adult general medical exam Screening for colon cancer Leg edema Urgency incontinence Parkinsons disease Mixed hyperlipidemia Essential hypertension GERD (gastroesophageal reflux disease) Lumbar degenerative disc disease Surgical History History of esophagogastroduodenoscopy (EGD) History of cataract surgery History of colonoscopy History of basal cell carcinoma (BCC) excision History of prostatectomy Family History Father No problems noted. Mother Diabetes Cancer Social History Household Members Other:: granddaughter Housing: Apartment Are you a primary career law clerk to a significant other at home: No Do you presently have visiting nurse or other home services: No Alcohol intake: former Patient Tobacco Use Status: Never used Tobacco e-Cigarette/Vaping Use: Never Used Second Hand Smoke Exposure: No Advance Directives Date on File: 08/18/23 service: No Current occupational status: disabled Current occupation: lt handed Cognitive needs: Yes Hearing needs: No Vision needs: No Questionnaire PHQ-9 Over the last 2 weeks, how often have you been bothered by any of the following problems? 1. Little interest or pleasure in doing things: nearly every day 2. Feeling down, depressed, or hopeless: nearly every day 3. Trouble falling or staying asleep, or sleeping too much: nearly every day 4. Feeling tired or having little energy: nearly every day 5. Poor appetite or overeating: not at all 6. Feeling bad about yourself - or that you are a failure or have let yourself or your family down: not at all 7. Trouble concentrating on things, such as reading the newspaper or watching television: several days 8. Moving or speaking so slowly that other people could have noticed. Or the opposite - being so fidgety or restless that you have been moving around a lot more than usual: nearly every day 9. Thoughts that you would be better off or of hurting yourself in some way: not at all Total score: 16 Depression Screening Interpretation: Positive (no suicidal thoughts) Depression Screening Follow-up: Existing condition, New Medication prescribed and Follow-up Visit Requested Depression Screening Done: Yes 54493 - PHQ-9 Billing: Yes Source: Developed by Drs. Iggy Kelly, Ivett Easley, Chinmay Gutierrez and colleagues, with an educational darryn from [employer]. Thrive Questionnaire Date Thrive assessed: 05/23/24 I am a: Patient What is your living situation today?: I have a steady place to live Within the past 12 months, did the food you bought not last and you didn't have the money to get more?: Never true Within the past 12 months, did you worry whether your food would run out before you got money to buy more?: Never true Do you have trouble paying for medicines?: No Do you have trouble getting transportation to medical appointments?: No Do you have trouble paying your heating and electricity bill?: No Do you have trouble taking care of your child, family member or friend?: No Do you have trouble with day-to-day activities such as bathing, preparing meals, shopping, managing finances, etc.?: Yes Are you currently unemployed and looking for a job?: No Are you interested in more education?: No Please select the resources that you would like help with: None Currently or been in a relationship where the following occur: No concerns reported THRIVE Score: 0 AUDIT C Alcohol Use Questionnaire (AUDIT-C) 1. How often do you have a drink containing alcohol?: Never Total Score: 0 Score Reviewed/Action Taken: No DULCE-7 AMB Questionnaire DULCE-7 Date DULCE - 7 assessed: 05/23/24 Feeling nervous, anxious, or on edge: 3 = Nearly every day Not being able to stop or control worryin = Nearly every day Worrying too much about different things: 3 = Nearly every day Trouble relaxin = Nearly every day Being so restless that it is hard to sit still: 3 = Nearly every day Becoming easily annoyed or irritable: 0 = Not at all Feeling afraid as if something awful might happen: 0 = Not at all Total DULCE-7 score (0-4 normal; 5-9 mild; 10-14 moderate; 15-21 severe): 15 Source: Developed by Drs. Iggy Kelly, Ivett Easley, Chinmay Gutierrez and colleagues, with an educational darryn from [employer]. DULCE-7 Assessment Billing DULCE-7 Assessment Tool: DULCE-7 Assessment 28346 Review of Systems Const All systems reviewed & are unremarkable except as noted in HPI and below Card Denies chest pain at rest, Denies chest pain with activity, Denies edema, Denies irregular heart rhythm, Denies claudication, Denies dyspnea, Denies dyspnea on exertion, Denies orthopnea, Denies paroxysmal nocturnal dyspnea and Denies slow heart rate Resp Denies cough, Denies dyspnea and Denies dyspnea on exertion GI Denies abdominal pain, Denies change in bowel habits, Denies excessive flatus, Denies nausea and Denies vomiting Physical exam (Primary Care) Vital Signs: Last Vital Signs BP 146/90 H 07/18/24 13:23 BMI result Body Mass Index 34.4 BMI Assessment/Plan discussion: High BMI High, discussed plan: lifestyle, weight reduction, dietary and physical activity Tobacco/Smoking Status: Tobacco use Status Tobacco use date assessed 04/12/24 07/18/24 13:32 Patient Tobacco Use Status Never used Tobacco 07/18/24 13:32 e-Cigarette/Vaping Use Never Used 07/18/24 13:32 PHQ-9: PHQ-9 Score PHQ-9: Total score 16 07/18/24 13:54 Depression Screening Interpretation: Positive (no suicidal thoughts) Depression Screening Follow-up: Existing condition, New Medication prescribed and Follow-up Visit Requested Thrive Assessment: Date of Thrive Assessment Date Thrive assessed 05/23/24 07/18/24 13:32 Currently or been in a relationship where the following occur: No concerns reported Resp Effort & Inspection: normal respiratory effort Auscultation: clear to auscultation bilaterally Cardio Jugular venous distension: no JVD Rate: regular rate Rhythm: regular rhythm Heart sounds: S1 normal heart sound present and S2 normal heart sound present Neuro Motor exam (neuro): Tremors during motor activity present Extrem General: Yes full ROM Coding Level of Care Code Est Pt Level 4 (39579) Complex EM visit Add On G2211 Diagnoses CHF (congestive heart failure) I50.9 Heart failure type: systolic Type 2 diabetes mellitus with hemoglobin A1c goal of less than 7.0% E11.9 CKD stage 3a, GFR 45-59 ml/min N18.31 Essential hypertension I10 Parkinson's disease with dyskinesia and fluctuating manifestations G20.B2 Dyskinesia presence: with dyskinesia Fluctuating manifestations: with fluctuating manifestations Moderate recurrent major depression F33.1 DULCE (generalized anxiety disorder) F41.1 Insomnia G47.00 Additional Codes DULCE-7 Assessment Billing - DULCE-7 Assessment Tool: DULCE-7 Assessment 69372 ([id number]) PHQ-9 - 64277 - PHQ-9 Billing: Yes ([id number]) Time Spent (min) 23 Assessment & Plan Assessment & Plan (1) CHF (congestive heart failure): Code(s): I50.9 - Heart failure, unspecified Category: Medical Qualifiers: Heart failure type: systolic (2) Type 2 diabetes mellitus with hemoglobin A1c goal of less than 7.0%: Code(s): E11.9 - Type 2 diabetes mellitus without complications Category: Medical (3) CKD stage 3a, GFR 45-59 ml/min: Code(s): N18.31 - Chronic kidney disease, stage 3a Category: Medical (4) Essential hypertension: Code(s): I10 - Essential (primary) hypertension Category: Medical (5) Parkinsons disease: Code(s): G20 - Parkinson's disease Category: Medical Qualifiers: Dyskinesia presence: with dyskinesia Fluctuating manifestations: with fluctuating manifestations Qualified Code(s): G20.B2 - Parkinson's disease with dyskinesia, with fluctuations (6) Moderate recurrent major depression: Code(s): F33.1 - Major depressive disorder, recurrent, moderate Category: Medical (7) DULCE (generalized anxiety disorder): Code(s): F41.1 - Generalized anxiety disorder Category: Medical (8) Insomnia: Code(s): G47.00 - Insomnia, unspecified Category: Medical Plan Treatment for Parkinson's Disease involves continued evaluation of carbidopa/levodopa dosages following the recent therapy adjustments due to increased tremors. Antihypertensive management requires escalation with the addition of another medication as lisinopril alone is insufficient. Addressing i nsomnia and depression involves replacing trazodone with venlafaxine, considering a PHQ-9 score of 16 and aligned with treating moderate depression. Overall medication management highlights adherence to specialist care for diabetes, heart failure, and hyperlipidemia. The need for a neurologist referral and MRI supports comprehensive Parkinson's management. Packaging his medications into daily pill organizers through pharmacy services was suggested to simplify his regimen. Patient was informed and verbally consented to the use of an ambient scribe for clinic note documentation during this visit. I reviewed with the patient that his current treatment of Parkinson?s Disease and other comorbidities such as hypertension, depression, and insomnia can be optimized. I explained the rationale for considering additional antihypertensive medication, the switch from trazodone to venlafaxine, and reviewing his complex medication regimen. We discussed the benefits of comprehensive medication man agement to improve adherence and potential side effects of each medication, emphasizing the necessity of coordinated care with his yard engineer and neurologist. Anticipating the neurologist's input and MRI results, I advised on the symptoms of exacerbation or side effects necessitating immediate attention, highlighting when urgent care or reevaluation is necessary. Orders: Orders MR head/brain wo con Today G20.B2 - Parkinson's disease with dyskinesia, with fluctuations Medications: New venlafaxine ER 37.5 mg PO BEDTIME 90 days 90 caps 0RF amlodipine 5 mg PO DAILY 90 days 90 tabs 1RF Changed From clonazepam 0.5 mg PO BEDTIME 30 days 30 tabs 0RF To clonazepam 0.5 mg PO BID 30 days 60 tabs 0RF Refilled diclofenac sodium 1% (Voltaren Arthritis Pain) apply to single elbow, wrist or hand; for hand includes palm/fingers/back of hand 2 grams topical QID 30 days PRN 100 grams 1RF Arthritis pain Discontinued trazodone Discontinued Reason: Patient Completed Course 50 mg PO BEDTIME 90 tabs 1RF Patient Instructions: - Continue taking current medications as prescribed. - Monitor blood pressure regularly. - Contact the pharmacy for medication sorting into pre-dosed packs. - Schedule an appointment promptly if experiencing severe depression, anxiety, or increased tremors. - Follow dietary recommendations and maintain physical activity to support cardiovascular health. - Obtain neurology referral and schedule MRI per our discussion for further evaluation of treatment plans.
--- OUTSIDE RECORDS SUMMARY | 2024-07-18 15:41 | XMS_ITS | Clinical Summary ---
Author Organization [facility] Facility Address [address] [place] [address], [place] [address] Care Team Providers Care Hull Drafter Name Role Phone Susy Sylvester MD Primary Care Provider [phone] Allergies No known active allergies Medications trihexyphenidyl [...] patient's age to complete this topic Insurance [address] [place] [id number] [place] Care Teams Hull Drafter Relationship Specialty Start Date End Date Susy Sylvester MD [address] [place], [place] PCP - General Internal Medicine 03/31/22
--- OUTSIDE RECORDS SUMMARY | 2024-07-18 15:41 | XMS_ITS | Encounter Summary ---
Author Organization [facility] Address [address] [place] [address] Care Team Providers Care Distillery Miller Helper Name Role Phone Susy Sylvester Primary Care Provider [phone] Encounter Details Date Type Department Care Team (Late st Contact Info) Description 12/21/2023 Orders Only [facility] Nuclear Medicine [address] [place] [address] Jake Angulo MD PhD [address] [place] [address] Social History Tobacco Use Types Packs/Day Years [...] Description 10/09/2024 1:00 PM EDT Office Visit [facility] [address] [place] [address] Cristhian Ruff DO [address] [place] [address] documented as of this encounter Visit Diagnoses Not on filedocumented in this encounter Care Teams Distillery Miller Helper Relationship Specialty Start Date End Date Susy Sylvester [address] [place] [address] dr Oscar Moore, [place] [address] PCP - General Internal Medicine 06/14/23 documented as of this encounter
--- OUTSIDE RECORDS SUMMARY | 2024-07-18 15:41 | XMS_ITS | Data Portability ---
Author Organization [facility] [address] Address [address] [place] [address] Care Team Providers Care Electronic Systems Security Assessment Name Role Phone [facility] Primary Care Provider [phone] Assessment No assessment recorded. Plan of Treatment Reminders Order Date Submit Date Provider Last Modified By Organization Details Last Modified Time Details Appointments None record ed. Lab None record ed. Referral None record ed. Procedures None record ed. Surgeries None record ed. Imaging XR, elbow, 3 or more view 023 03/27/19 [facility], [address] [place], [address], 17:46:19 XR, wrist, 3 or more view 023 03/27/19 [facility], [address] [place], [address], 3 17:45:16 Medication Orders None record ed. Patient TargetsNo targets recorded. Patient InstructionsNo instructions recorded. Reason for Referral None Reported. Results Created Date Observation Date Name Description Value Unit Range Abnormal Flag Note LastModifiedBy Organization Detail LastModifiedTime 03/27/19 23 03/27/2022 XR, wrist , 3 or more view No observ ation record ed. [email or web address] 1 [facility] [address] [place], [address], 03/27/2022 17:56:06 03/27/19 23 03/27/2022 XR, elbow , 3 or more view No observ ation record ed. [email or web address] 1 [facility] [address] [place], [address], 03/27/2022 17:56:07 Result Notes None recorded. Problems Name Problem SNOMED Code Status Onset Date Resolution Date Notes Provider Name and Address Organization Details Recorded Time Hypercholestero lemia 74304402 Active 2022 LES VERENICE null, [place] - [facility] 3 15:46:31 Hypertensive disorder 05448518 Active 2022 LES VERENICE null, [place] - [facility] 3 15:46:39 Parkinson's disease 06287183 Active 2022 LES VERENICE null, [place] - [...] completed [email or web address] [facility] [address] [place], [address], 03/27/2022 17:56:06 03/27/2022 XR, elbow, 3 or more view completed [email or web address] [facility] [address] [place], [address], 03/27/2022 17:56:07 Procedure Notes None recorded. Medical [...] Updated DateTime 3 172.72 cm 34.7 kg/m2 552618. 06 g 8 98 % 98 % [...] SNOMED-CT Code Diagnosis ICD10 Code Diagnosis Note [id number] [facility] [address] [address] 03/27/2022 15:10:11 03/27/2022 17:36:55 Pain of left wrist [id number] 03413 M25.532 No acute fracture of the wrist [...] week. Pain of le ft elbow joint [id number] 5774494 M25.522 No acute fracture of the elbow noted on x-ray. Please follow up with primary care doctor to manage this and/or continue further workup if symptoms are not improving with conservati ve measures over the next week. You may take Tylenol for pain, ice, rest and keep it elevated. 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 Health Concerns Section Related Observation LastModified by Organization Detai ls LastModified Time None Recorded Concern Status LastModified by Organization Details LastModified Time None Recorded Advance Directives Directive None Recorded Payers Encounter Date Sequence Insurance Name Policy Number Policy Vargas Covered Member ID Vargas Member ID Guarantor Name 03/27/2022 1 [place] [employer] Onur Colon [id number] Onur Colon 03/27/2022 2 [place] [facility] Onur Colon [id number] Onur Colon Notes Date Note Type Note Provider Name and Address Organization Details Recorded Time 03/27/2022 text/html Onur is a 76 yo left handed male M with PMH of HTN, HLD, parkinson's, GERD, here for left hand swelling that radiates up to forearm x 4 days. Here with dixie who is assisting in translation of nigerian. She notes he has been avoiding using [...] Ramos, BELLO [address] [place], [address], [place] - [facility] 03/27/2022 17:32:52
--- OUTSIDE RECORDS SUMMARY | 2024-07-18 15:42 | XMS_ITS | Referral Summary ---
Author Organization [facility] Address [address] [place] [address] Care Team Providers Care Microsoft Dynamics Ax Consultant Name Role Phone Susy Sylvester Primary Care Provider [phone] Encounters Date Type Department Care Team Description 06/05/2024 1:00 PM EDT Office Visit [facility] [address] [place] [address] [phone] Cristhian Ruff DO Parkinson's disease, unspecified whether [...] Description 10/09/2024 1:00 PM EDT Office Visit [facility] [address] [place] [address] Cristhian Ruff DO [address] [place] [address] Insurance [facility] MEDICARE Care Teams Microsoft Dynamics Ax Consultant Relationship Specialty Start Date End Date Susy Sylvester [address] [facility] [address] Oscar Moore, [place] [address] PCP - General Internal Medicine 06/14/23
--- OUTSIDE RECORDS SUMMARY | 2024-07-18 15:42 | XMS_ITS | Data Portability ---
Author Organization [place] - [facility], Allergy Address [address] [place] [address] Assessment Encounter Date Assessment Date Assessment LastModified by Organization Details LastModified Time 10/30/2023 10/30/2023 78 year old Monegasque speaking male with a history of dementia [...] 2023 024 [email or web address] [facility], [address] [place] [address], [phone], 4 11:35:27 CT, maxill ofacia l, w/o contra st 2023 024 [email or web address] [facility], [address] [place] [address], [address], 4 10:11:43 Medication Orders doxycy maciel hyclat e 100 mg tablet 2023 [facility], [address] [place] [address], [id number], 4 10:36:41 flutic asone propio mynor 50 mcg/ac tuatio n nasal spray, suspen padmini 2023 [facility], [address] [place] [address], [id number], 4 14:57:14 Patient TargetsNo targets recorded. Patient InstructionsNo instructions recorded. Reason for Referral None Reported. Results Created Date Observation Date Name Description Value Unit Range Abnormal Flag Note LastModifiedBy Organization Detail LastModifiedTime 12/08/[address], sinus es, w/o contr ast No observ ation record ed. [email or web address] [facility] [address], [address], 12/08/2023 11:35:24 Result Notes None recorded. Problems Name Problem SNOMED Code Status Onset Date Resolution Date Notes Provider Name and Address Organization Details Recorded Time Nasal congestion 67219911 Active JAYSON SHIELDS MD [address] [place] [address], [address], [facility] - [facility] 4 11:58:59 Chronic maxillary sinusitis 48671364 Active JAYSON SHIELDS MD 100 [facility],[address], [place], [address], [place] - [facility] [place] 4 12:00:46 Chronic rhinitis 34586840 Active 024 JAYSON SHIELDS MD 100 [facility],[address], [place], [address], [place] - [facility] [place] 4 12:01:02 Chronic sinusitis 60468001 Active 024 JAYSON SHIELDS MD 100 [facility],[address], [place], [address], [place] - [facility] [place] 4 12:01:02 Polyp of nasal cavity 079582733 Active 024 JAYSON SHIELDS MD 100 [facility],[address], [place], [address], [place] - [facility] [place] 4 13:04:18 Parkinson's disease 96960434 Active 024 JAYSON SHIELDS MD 100 [facility], [address], [place], [address], [place] - [facility] [place] 4 11:34:00 Impaired cognition 004347826 Active 024 JAYSON SHIELDS MD 100 [facility], [address], [place], [address], [place] - [facility] 4 11:34:12 Problem Notes None recorded. Procedures Surgical History Date Name Laterality Status Provider Name and Address Organization Details Recorded Time 4 JMSNasal/Sinus Endoscopy completed JAYSON ALEXANDER MD [address], [address], [place] - [facility] 10/30/2023 12:04:04 Cataract Surgery completed Deny Blanca [place] - [facility] 10/30/2023 11:20:20 excision of basal cell carcinoma completed Deny Blanca [place] - [facility] 10/30/2023 11:20:58 Imaging Results Imaging Date Name Status LastModified by Organiz ation Details LastModified Time 12/08/2023 CT, sinuses, w/o contrast completed [email or web address] [facility] [address], [place], [address], 12/08/2023 11:35:24 Procedure Notes None recorded. Medical [...] Updated DateTime 10/30/2023 172.72 cm 32.8 kg/m2 99379.95 g Deny Blanca [place] - [facility] 10/30/2023 11:37:14 Social History None recorded. Functional Status None recorded. Mental Status None recorded. Family History Nothing Reported. Medical History No medical history recorded. Past Encounters Encounter ID Performer Location Encounter Start Date Encounter Closed Date Diagnosis/Indication Diagnosis SNOMED-CT Code Diagnosis ICD10 Code Diagnosis Note [id number] JAYSON BARRY MD [facility] [address] [address] 10/30/2023 11:00:35 10/30/2023 12:05:28 Nasal congestion 85727794 R09.81 Chronic ma xillary sinusitis 25541513 J32.0 Chronic rhinitis 8804298 6 J31.0 Polyp of nasal cavity 73 6029618 J33.0 [id number] JAYSON BARRY MD [facility] [address] [place] [address] 12/08/2023 10:32:17 12/08/2023 16:44:16 Chronic sinusitis 15032796 J32.9 Parkinson's disease 4904 9000 G20.A1 Impaired cognition 90654 6002 R41.89 Health Concerns Section Related Observation LastModified by Organization Detai ls LastModified Time None Recorded Concern Status LastModified by Organization Details LastModified Time None Recorded Advance Directives Directive None Recorded Payers Encounter Date Sequence Insurance Name Policy Number Policy Vargas Covered Member ID Vargas Member ID Guarantor Name 10/30/2023 2 [id number] Onur Colon [id number] Onur Colon 10/30/2023 1 MEDICARE B-[place]: [facility] [employer] Onur Colon [id number] Onur Colon 12/08/2023 2 [place] Onur Colon [id number] Onur Colon 12/08/2023 1 [place] [employer] Onur Colon [id number] Onur Colon Notes Date Note Type [...] unfortunately did not improve his symptoms. His ecoiuslr-pq-eks and son help translate for him. JAYSON ALEXANDER MD [address], [address], [place] - [facility] 10/30/2023 13:04:39 12/08/2023 text/html Family notes kesha t patient feels improved following the antibiotics and nasal steroids. Previously noted to have incidental findings of polyps and hyperdense secretions.No other change in his history prior visit78 year old Monegasque speaking male with a history of dementia [...] surgery given to family JAYSON ALEXANDER MD [address] [place] [address],[place] [address], [place], [address], [facility] - [facility] 12/08/2023 11:35:55
--- OUTSIDE RECORDS SUMMARY | 2024-07-18 15:42 | XMS_ITS | Clinical Summary ---
Author Organization [facility] Address [address] [place] [address] Care Team Providers Care Pit Boss Name Role Phone Mkia Arthurbj Susy Ornelas Primary Care Provider [phone] Allergies No known active allergies Medications meclizine [...] Description 06/05/2024 1:00 PM EDT Office Visit [facility] [address] [place] [address] Cristhian Ruff DO Parkinson's disease, unspecified whether [...] Description 10/09/2024 1:00 PM EDT Office Visit [facility] [address] [place] [address] Cristhian Ruff DO [address] [place] [address] Health Maintenance Due Date Last Done Comments [...] patient's age to [place] [id number] [facility] MEDICARE Care Teams Pit Boss Relationship Specialty Start Date End Date Susy Sylvester [address] [place] [address] [place] [address] PCP - General Internal Medicine 06/14/23
== END 2024-07-18 13:52 | disposition home or self-care (01) ==
LOC: HO.HMCH 13:15
PROVIDERS: PCP Internal Medicine; Visit Provider Internal Medicine
DX: I12.9 Hypertensive chronic kidney disease with stage 1 through stage 4 chronic kidney disease, or unspecified chronic kidney disease (principal); I50.9 Heart failure, unspecified; E11.22 Type 2 diabetes mellitus with diabetic chronic kidney disease; N18.31 Chronic kidney disease, stage 3a; G20.B2 Parkinson's disease with dyskinesia, with fluctuations; F33.1 Major depressive disorder, recurrent, moderate; F41.1 Generalized anxiety disorder; G47.00 Insomnia, unspecified

== ENCOUNTER → 2024-07-18 13:14 | Outpatient (BNVA) | payer MEDICARE, MEDICAID, SELFPAY | PROVIDERS: PCP Internal Medicine; Visit Provider Internal Medicine | DX: I13.0 Hypertensive heart and chronic kidney disease with heart failure and stage 1 through stage 4 chronic kidney disease, or unspecified chronic kidney disease (principal); E11.22 Type 2 diabetes mellitus with diabetic chronic kidney disease; N18.31 Chronic kidney disease, stage 3a; I50.9 Heart failure, unspecified; G20.B2 Parkinson's disease with dyskinesia, with fluctuations; F33.1 Major depressive disorder, recurrent, moderate; F41.1 Generalized anxiety disorder; G47.00 Insomnia, unspecified | CPT/HCPCS: 96127; 99212 ==

== ENCOUNTER 2024-07-27 10:42 | Outpatient (REF) | payer MEDICARE, MEDICAID, SELFPAY ==
--- NOTE | ~2024-07-27 | MR_ITS ---
EXAMINATION: MR BRAIN WITHOUT CONTRAST CLINICAL INFORMATION: Parkinson's disease. COMPARISON: Correlated to CT dated August 18, 2023. TECHNIQUE: MRI of the brain was obtained using routine sequences without contrast. FINDINGS: No restricted diffusion. There is susceptibility signal within the substance nigra. No acute intracranial hemorrhage, mass effect, midline shift, hydrocephalus or herniation. There is bilateral subtle hyperintense T2 FLAIR signal within the deep periventricular white matter of the centrum semiovale and lloyd radiata. Prominence of the extra-axial CSF spaces, cerebral sulci and ventricles. Posterior cranial fossa contents demonstrated no signal abnormality or gross mass effect. Flow-void signal within the main cerebral vessels is normal. Sellar/suprasellar region demonstrated no signal abnormality or gross masses. Craniocervical junction is intact with normal position of the cerebellar tonsils. There is a pannus formation in the periodontal region resulting in ventral indentation to the medulla oblongata. There is a 6 mm hyperintense T2 FLAIR signal within the posterior left nasal cavity medial to the left middle turbinate. MR/MR head/brain wo con IMPRESSION: Concerning Parkinson disease. Mild global cerebral atrophy. Periodontal pannus formation abutting the ventral medulla oblongata. Electronically signed by: Imer De La Paz MD 07/29/2024 07:05 AM EDT
== END 2024-07-27 10:43 | disposition home or self-care (01) ==
LOC: HO.MRI 10:42
PROVIDERS: PCP Internal Medicine; Visit Provider Internal Medicine
DX: G20.B2 Parkinson's disease with dyskinesia, with fluctuations (principal)
CPT/HCPCS: 70551

== ENCOUNTER → 2024-07-27 10:50 | Outpatient (BNV) | payer MEDICARE, MEDICAID, SELFPAY | PROVIDERS: PCP Internal Medicine; Visit Provider Radiology Diagnostic Radiology | DX: G20.C Parkinsonism, unspecified (principal) | CPT/HCPCS: 70551 ==

== ENCOUNTER 2024-08-01 10:49 | Outpatient (AMB) | payer MEDICARE, MEDICAID, SELFPAY ==
--- NOTE | 2024-08-01 10:57 | MHC.OFFVIS ---
Intake Visit Reasons: follow up s/p US 07/17/24 Intake Note: Patient presents for follow up US performed on 07/17/24. Patient is ambulating with a walker. No complaints. Accompanied by: Grand Child Allergies pravastatin Allergy (Intermediate, Verified 08/01/24 11:00) dry mouth HPI HPI follow up s/p US 07/17/24: Details: The patient is a 79-year-old male presenting with venous insufficiency. He underwent an ultrasound which returned normal results, indicating no procedural interventions are needed currently. He ambulates with a walker and experiences swelling, mainly in the feet. The patient has previously used compression socks and is advised to continue using them daily. He also incorporates the use of lymphedema pumps daily for one hour as part of his current management plan. [facility] Medical History CHF (congestive heart failure) Type 2 diabetes mellitus with hemoglobin A1c goal of less than 7.0% New onset type 2 diabetes mellitus CKD (chronic kidney disease) stage 2, GFR 60-89 ml/min On allopurinol therapy Prostate cancer CKD (chronic kidney disease) stage 3, GFR 30-59 ml/min Skin lesion Left knee pain Chronic pain syndrome Sacroiliac dysfunction Sacroiliitis Spondylosis without myelopathy or radiculopathy, lumbar region Adult general medical exam Screening for colon cancer Leg edema Urgency incontinence Parkinsons disease Mixed hyperlipidemia Essential hypertension GERD (gastroesophageal reflux disease) Lumbar degenerative disc disease Surgical History History of esophagogastroduodenoscopy (EGD) History of cataract surgery History of colonoscopy History of basal cell carcinoma (BCC) excision History of prostatectomy Family History Father No problems noted. Mother Diabetes Cancer Social History Household Members Other:: granddaughter Housing: Apartment Are you a primary personal care home administrator to a significant other at home: No Do you presently have visiting nurse or other home services: No Alcohol intake: former Patient Tobacco Use Status: Never used Tobacco e-Cigarette/Vaping Use: Never Used Second Hand Smoke Exposure: No Advance Directives Date on File: 08/18/23 service: No Current occupational status: disabled Current occupation: lt handed Cognitive needs: Yes Hearing needs: No Vision needs: No Review of Systems Const All systems reviewed & are unremarkable except as noted in HPI and below Reports no additional complaints ENT Reports Normal hearing present Card Denies chest pain, Denies chest pain at rest, Denies chest pain with activity and Denies pedal edema Resp Denies cough GI Denies abdominal pain Musc Denies abnormal gait, Denies muscle cramps and Denies radiating pain into limb Skin/Breast Denies skin ulcer and Denies wounds Neuro Reports Normal hearing present and Denies abnormal gait Psych Reports no additional complaints Physical Exam Const General: cooperative, healthy appearing and comfortable Orientation/consciousness: oriented to person, oriented to place and oriented to time HEENT Head: Yes normal to inspection Neck Neck: Yes normal visual inspection Carotids: no bruits Chest Chest palpation & inspection: normal inspection of the chest Resp Effort & Inspection: normal respiratory effort and able to speak in complete sentences Auscultation: clear to auscultation bilaterally, no crackles, no rales, no rhonchi and no wheezes Cardio Rate: regular rate Rhythm: regular rhythm Heart sounds: S1 normal heart sound present and S2 normal heart sound present Bruits: no carotid bruits Peripheral pulses: Peripheral pulses 2+ throughout GI Inspection: Yes normal to inspection Skin Wounds: no wounds Hair: normal Neuro General: oriented to person, oriented to place and oriented to time Cranial nerves: Yes CN's II-XII intact bilaterally and Yes Normal hearing present Cognition (Neuro): normal cognition Motor exam (neuro): 5/5 motor strength present throughout Extrem Other: venous exam: +2 edema right greater than left General: No clubbing, No cyanosis and Yes edema Psych Appearance: grossly normal Mental Status: mental status grossly normal Speech and movement: Normal speech and movement present Results Reviewed Results Reviewed: Brief summary of venous insufficiency testing is as follows: right great saphenous vein: Minimally positive at right knee but vein small in caliber right small saphenous vein: negative right accessory vein: none present left great saphenous vein: negative left small saphenous vein: negative left accessory vein: none present Please note there is no evidence of any venous aneurysms or significant tortuosity Assessment & Plan Assessment & Plan (1) Varicose veins of both lower extremities with inflammation: Code(s): I83.11 - Varicose veins of right lower extremity with inflammation; I83.12 - Varicose veins of left lower extremity with inflammation Category: Medical Plan: In short patient is negative for any significant venous reflux. At the current time would recommend only conservative measures including compression elevation and exercise. He will continue to follow up with us on an as-needed basis. (2) Lymphedema: Code(s): I89.0 - Lymphedema, not elsewhere classified Category: Medical Plan: We did discuss the importance of using his lymphedema pumps for at least an hour daily. May even need to increase it twice a day as required. He once again he will follow up with us on an as-needed basis. Plan Patient was informed and verbally consented to the use of an ambient scribe for clinic note documentation during this visit. Patient Instructions: - Keep walking with a walker as able. - Wear compression socks every day. - Use lymphedema pumps daily for one hour. - follow-up as needed Coding Level of Care Code Est Pt Level 4 (92882) Diagnoses Varicose veins of both lower extremities with inflammation I83.11; I83.12 Lymphedema I89.0
--- OUTSIDE RECORDS SUMMARY | 2024-08-01 11:57 | XMS_ITS | Encounter Summary ---
Author Organization [facility] Address [address] [place] [address] Care Team Providers Care Manager Transplant Name Role Phone Susy Sylvester Primary Care Provider [phone] Encounter Details Date Type Department Care Team (Late st Contact Info) Description 12/21/2023 Orders Only [facility] Nuclear Medicine [address] [place] [address] Jake Angulo MD PhD [address] [place] [address] Social History Tobacco Use Types Packs/Day Years [...] Description 10/09/2024 1:00 PM EDT Office Visit [facility] [address] [place] [address] Cristhian Ruff DO [address] [place] [address] documented as of this encounter Visit Diagnoses Not on filedocumented in this encounter Care Teams Manager Transplant Relationship Specialty Start Date End Date Susy Sylvester [address] [place] [address] [place] [address] PCP - General Internal Medicine 06/14/23 documented as of this encounter
--- OUTSIDE RECORDS SUMMARY | 2024-08-01 11:58 | XMS_ITS | Clinical Summary ---
Author Organization [facility] Address [address] [place] [address] Care Team Providers Care Roller Leveler Operator Name Role Phone Susy Sylvester Primary Care Provider [phone] Allergies No known active allergies Medications meclizine [...] 3 times a day. 1175 tablet 06/05/2024 Active Encounters Date Type Department Care Team Description 06/05/2024 1:00 PM EDT Office Visit [facility] [address] [place] [address] Cristhian Ruff DO Parkinson's disease, unspecified whether [...] Description 10/09/2024 1:00 PM EDT Office Visit [facility] [address] [place] [address] Cristhian Ruff DO [address] [place] [address] Health Maintenance Due Date Last Done Comments Hepatitis C Screening 1945 Medicare AWV 06/01/1946 Pneumococcal Vaccine: 50+ Years (1 of 1 - PCV) 06/01/1997 Zoster Vaccines (1 of 2) 06/01/1997 RSV Vaccine (60+ years old and patients) (1 - 1-dose 75+ series) 06/01/2022 COVID-19 Vaccine ( - season) 2023 12/11/2021, 04/15/2021, 07/27/2020, Additional history [...] patient's age to complete this topic Insurance [employer] MEDICARE Care Teams Roller Leveler Operator Relationship Specialty Start Date End Date Susy Sylvester [address] [place] [address] [place] [address] PCP - General Internal Medicine 06/14/23
--- OUTSIDE RECORDS SUMMARY | 2024-08-01 11:58 | XMS_ITS | Data Portability ---
Author Organization [facility] [address] Address [address] [place] [address] Care Team Providers Care Lime Kiln Worker Helper Name Role Phone [facility] Primary Care Provider Assessment No assessment recorded. Plan of Treatment Reminders Order Date Submit Date Provider Last Modified By Organization Details Last Modified Time Details Appointments None record ed. Lab None record ed. Referral None record ed. Procedures None record ed. Surgeries None record ed. Imaging XR, elbow, 3 or more view 023 03/27/19 [facility], [address] [place], [address], 17:46:19 XR, wrist, 3 or more view 023 03/27/19 [facility], [address] [place], [address], 3 17:45:16 Medication Orders None record ed. Patient TargetsNo targets recorded. Patient InstructionsNo instructions recorded. Reason for Referral None Reported. Results Created Date Observation Date Name Description Value Unit Range Abnormal Flag Note LastModifiedBy Organization Detail LastModifiedTime 03/27/19 23 03/27/2022 XR, wrist , 3 or more view No observ ation record ed. [email or web address] 1 [facility] [address] [place], [address], 03/27/2022 17:56:06 03/27/19 23 03/27/2022 XR, elbow , 3 or more view No observ ation record ed. [email or web address] 1 [facility] [address] [place], [address], 03/27/2022 17:56:07 Result Notes None recorded. Problems Name Problem SNOMED Code Status Onset Date Resolution Date Notes Provider Name and Address Organization Details Recorded Time Hypercholestero lemia 33412317 Active 2022 LES VERENICE null, [place] - [facility] 3 15:46:31 Hypertensive disorder 29383258 Active 2022 LES VERENICE null, [place] - [facility] 3 15:46:39 Parkinson's disease 42282733 Active 2022 LES VERENICE null, [place] - [...] completed [email or web address] [facility] [address] [place], [address], 03/27/2022 17:56:06 03/27/2022 XR, elbow, 3 or more view completed [email or web address] [facility] [address] [place], [address], 03/27/2022 17:56:07 Procedure Notes None recorded. Medical [...] Updated DateTime 3 172.72 cm 34.7 kg/m2 528921. 06 g 8 98 % 98 % 74 /min 18 /min 98.9 [degF] 134 mm[Hg] 63 mm[Hg] LES CALDERA [place] - [facility] 3 15:50:40 Social History Question Answer Notes LastModified by Organizat ion Details LastModified Time Tobacco Smoking Status Never Smoker LES CALDERA null, [place] - [facility] 03/27/2022 15:47:04 Have You Recently Traveled Abroad? No Information not available 03/27/2022 Sex: Unknown Functional Status Question Answer Note LastModified by Organizat ion Details LastModified Time Do you use any illicit or recreational drugs? No Information not available 03/27/2022 Do you or have you ever used any other forms of tobacco or nicotine? No Information not available 03/27/2022 What is your level of alcohol consumption? None Information not available 03/27/2022 Are you currently employed? No Information not available 03/27/2022 Mental Status None recorded. Family History Nothing Reported. Medical History No medical history recorded. Past Encounters Encounter ID Performer Location Encounter Start Date Encounter Closed Date Diagnosis/Indication Diagnosis SNOMED-CT Code Diagnosis ICD10 Code Diagnosis Note [id number] [facility] ROONEY [address] [address] 03/27/2022 15:10:11 03/27/2022 17:36:55 Pain of left wrist 5006450494 97998 M25.532 No acute fracture of the wrist [...] week. Pain of le ft elbow joint 7610674793 3093874 M25.522 No acute fracture of the elbow noted on x-ray. Please follow up with primary care doctor to manage this and/or continue further workup if symptoms are not improving with conservati ve measures over the next week. You may take Tylenol for pain, ice, rest and keep it elevated. Osteoarthr itis of wrist 733878164 M19.039 Health Concerns Section Related Observation LastModified by Organization Detai ls LastModified Time None Recorded Concern Status LastModified by Organization Details LastModified Time None Recorded Advance Directives Directive None Recorded Payers Insurance Date Sequence Insurance Name Policy Number Policy Vargas Covered Member ID Vargas Member ID Guarantor Name 03/27/2022 1 [place] B[place] [employer] Onur Colon [id number] Onur Colon 03/27/2022 2 [place] Onur Colon [id number] Onur Colon Notes Date Note Type Note Provider Name and Address Organization Details Recorded Time 03/27/2022 text/html Onur is a 76 yo left handed male M with PMH of HTN, HLD, parkinson's, GERD, here for left hand swelling that radiates up to forearm x 4 days. Here with dixie who is assisting in translation of croatian. She notes he has been avoiding using [...] tell me what he takes it for. BELLO HICKEY [address] [place], [address], [place] - [facility] 03/27/2022 17:32:52
--- OUTSIDE RECORDS SUMMARY | 2024-08-01 11:58 | XMS_ITS | Referral Summary ---
Author Organization [facility] Address [address] [place] [address] Care Team Providers Care Campus Security Officer Name Role Phone Susy Sylvester Primary Care Provider [phone] Encounters Date Type Department Care Team Description 06/05/2024 1:00 PM EDT Office Visit [facility] [address] [place] [address] Cristhian Ruff DO Parkinson's disease, unspecified whether [...] times a day. 1175 tablet 06/05/2024 Active Social History Tobacco Use Types Packs/Day [...] Description 10/09/2024 1:00 PM EDT Office Visit [facility] [address] [place] [address] Cristhian Ruff DO [address] [place] [address] Insurance [facility] MEDICARE Care Teams Campus Security Officer Relationship Specialty Start Date End Date Susy Sylvester [address] [place] [address] PCP - General Internal Medicine 06/14/23
--- OUTSIDE RECORDS SUMMARY | 2024-08-01 11:58 | XMS_ITS | Clinical Summary ---
Author Organization [facility] Address [address] [place] [address], [place] [address] Care Team Providers Care Tomato Pulper Operator Name Role Phone Susy Sylvester MD Primary Care Provider [phone] Allergies No known active allergies Medications trihexyphenidyl [...] patient's age to complete this topic Insurance [address] [place] [id number] [place] Care Teams Tomato Pulper Operator Relationship Specialty Start Date End Date Suys Sylvester MD [address] [place], [place] PCP - General Internal Medicine 03/31/22
== END 2024-08-01 11:23 | disposition home or self-care (01) ==
LOC: HO.HVS 10:50
PROVIDERS: PCP Internal Medicine; Visit Provider Surgery Vascular Surgery
DX: I83.11 Varicose veins of right lower extremity with inflammation (principal); I83.12 Varicose veins of left lower extremity with inflammation; I89.0 Lymphedema, not elsewhere classified
CPT/HCPCS: 99214

== ENCOUNTER → 2024-08-01 10:49 | Outpatient (BNVA) | payer MEDICARE, MEDICAID, SELFPAY | PROVIDERS: PCP Internal Medicine; Visit Provider Surgery Vascular Surgery | DX: I83.11 Varicose veins of right lower extremity with inflammation (principal); I83.12 Varicose veins of left lower extremity with inflammation; I89.0 Lymphedema, not elsewhere classified | CPT/HCPCS: 99212 ==

== ENCOUNTER → 2024-08-19 10:30 | Outpatient (REF) | payer MEDICARE, MEDICAID, SELFPAY ==
--- OUTSIDE RECORDS SUMMARY | 2024-08-19 11:36 | XMS_ITS | Encounter Summary ---
Author Organization [facility] Address [address] [place] [address] Care Team Providers Care Anatomic Pathology Manager Name Role Phone Susy Sylvester Primary Care Provider [phone] Encounter Details Date Type Department Care Team (Late st Contact Info) Description 12/21/2023 Orders Only [facility] Nuclear Medicine [address] [place] [address] Jake Angulo MD PhD [address] [place] [address] Social History Tobacco Use Types Packs/Day Years [...] Description 10/09/2024 1:00 PM EDT Office Visit [facility] Neurology Clinic [address] [place] [address] Cristhian Ruff DO [address] [place] [address] documented as of this encounter Visit Diagnoses Not on filedocumented in this encounter Care Teams Anatomic Pathology Manager Relationship Specialty Start Date End Date Susy Sylvester [address] [place] [address] [place] [address] PCP - General Internal Medicine 06/14/23 documented as of this encounter
== END ==
LOC: HO.SL 10:30
PROVIDERS: PCP Internal Medicine; Visit Provider Physician Assistant Medical
DX: G47.33 Obstructive sleep apnea (adult) (pediatric) (principal)
CPT/HCPCS: 95806

== ENCOUNTER → 2024-08-19 10:57 | Outpatient (BNV) | payer MEDICARE, MEDICAID, SELFPAY | PROVIDERS: PCP Internal Medicine; Visit Provider Internal Medicine | DX: R06.83 Snoring (principal) | CPT/HCPCS: 95806 ==

== ENCOUNTER 2024-09-11 07:52 | Outpatient (REF) | payer MEDICARE, MEDICAID, SELFPAY ==
--- OUTSIDE RECORDS SUMMARY | 2024-09-11 07:56 | XMS_ITS | Encounter Summary ---
Author Organization [facility] Address [address] [place] [address] Care Team Providers Care Videotape Operator Name Role Phone Susy Sylvester Primary Care Provider [phone] Encounter Details Date Type Department Care Team (Late st Contact Info) Description 12/21/2023 Orders Only [facility] Nuclear Medicine [address] [place] [address] Jake Angulo MD PhD [address] [place] [address] Social History Tobacco Use Types Packs/Day Years [...] Description 10/09/2024 1:00 PM EDT Office Visit [facility] Building Neurology Clinic [address] [place] [address] Cristhian Ruff DO [address] [place] [address] documented as of this encounter Visit Diagnoses Not on filedocumented in this encounter Care Teams Videotape Operator Relationship Specialty Start Date End Date Susy Sylvester [address] [place] [address] [place] [address] PCP - General Internal Medicine 06/14/23 documented as of this encounter
[2024-09-11 08:37] LABS: Alanine Aminotransferase 12 U/L (0-40); Albumin Level 4.7 g/dL (3.5-5.0); Alkaline Phosphatase 69 U/L (39-117); Anion Gap 14 (12-20); Aspartate Amino Transferase 26 U/L (5-37); Bilirubin Total 0.5 mg/dL (0.0-1.0); Blood Urea Nitrogen 19 mg/dL (9-16); Calcium 9.6 mg/dL (8.4-10.2); Carbon Dioxide 25 mmol/L (22-29); Chloride 106 mmol/L (96-108); Cholesterol 140 mg/dL (<200); Estimated Glomerular Filt Rate > 60; Glucose Fasting 124 mg/dL (60-99); HDL Cholesterol 45 mg/dL (>40); LDL Cholesterol Calculated 73 mg/dL (<100); Sodium 141 mmol/L (135-145); Triglycerides 110 mg/dL (<150)
[2024-09-11 08:58] LABS: Prostate Specific Antigen < 0.10 ng/mL (<0.05-4.0)
== END 2024-09-11 07:53 | disposition home or self-care (01) ==
LOC: HO.LAB 07:52
PROVIDERS: Internal Medicine Nephrology; PCP Internal Medicine; Visit Provider Nurse Practitioner Family
DX: I10 Essential (primary) hypertension (principal); C61 Malignant neoplasm of prostate; E78.5 Hyperlipidemia, unspecified; Z12.5 Encounter for screening for malignant neoplasm of prostate
CPT/HCPCS: 36415; 80053; 80061; 84153

== ENCOUNTER 2024-09-26 10:47 | Outpatient (AMB) | payer MEDICARE, MEDICAID, SELFPAY ==
[2024-09-26 10:53] VITALS: BP 108/58; PULSE 83; O2SAT 97; BMI 33.3
--- NOTE | 2024-09-26 10:53 | HO.NEPHOV ---
Vital Signs 09/26/24 10:53 Height 5 ft 8 in Weight 219 lb BMI 33.3 BP 108/58 L Blood Pressure Location Lt brachial Position Sitting Pulse 83 Pulse Source Pulse Oximeter Pulse Oximetry (%) 97 Oxygen Delivery Method Room Air Intake Visit Reasons: 4mon follow-up w/labs-Conf Retail Pos Specialist Required: No Retail Pos Specialist Services: Retail Pos Specialist Offered & Declined (Granddaughter will translate) Accompanied by: Grand Child Allergies pravastatin Allergy (Intermediate, Verified 09/26/24 10:56) dry mouth HPI Comments Details: 78 year old male patient was seen in the office today CKD, hypertension and edema. He is accompanied by grand daughter . He is known to have CKD for some time. He also has Parkinsons disease, HTN, Prostate CA as well as OAB. He is currently taking Gemtesa for OAB and follows with Urology for Prostate CA. He is not known to have significant proteinuria. He is on verapamil. He denies any CAD, CHF, CVA, PAD or OG. His serum creatinine is stable. [facility] Medical History CHF (congestive heart failure) Type 2 diabetes mellitus with hemoglobin A1c goal of less than 7.0% New onset type 2 diabetes mellitus CKD (chronic kidney disease) stage 2, GFR 60-89 ml/min On allopurinol therapy Prostate cancer CKD (chronic kidney disease) stage 3, GFR 30-59 ml/min Skin lesion Left knee pain Chronic pain syndrome Sacroiliac dysfunction Sacroiliitis Spondylosis without myelopathy or radiculopathy, lumbar region Adult general medical exam Screening for colon cancer Leg edema Urgency incontinence Parkinsons disease Mixed hyperlipidemia Essential hypertension GERD (gastroesophageal reflux disease) Lumbar degenerative disc disease Surgical History History of esophagogastroduodenoscopy (EGD) History of cataract surgery History of colonoscopy History of basal cell carcinoma (BCC) excision History of prostatectomy Family History Father No problems noted. Mother Diabetes Cancer Social History Household Members Other:: granddaughter Housing: Apartment Are you a primary care rep to a significant other at home: No Do you presently have visiting nurse or other home services: No Alcohol intake: former Patient Tobacco Use Status: Never used Tobacco e-Cigarette/Vaping Use: Never Used Second Hand Smoke Exposure: No Advance Directives Date on File: 08/18/23 service: No Current occupational status: disabled Current occupation: lt handed Cognitive needs: Yes Hearing needs: No Vision needs: No Review of Systems Const All systems reviewed & are unremarkable except as noted in HPI and below Physical Exam Vital Signs: Last Vital Signs Pulse 83 09/26/24 10:53 BP 108/58 L 09/26/24 10:53 Pulse Ox 97 09/26/24 10:53 Oxygen Delivery Method Room Air 09/26/24 10:53 BMI result Body Mass Index 33.3 Const General: comfortable and no acute distress Orientation/consciousness: patient oriented x3 HEENT Head: Yes normocephalic Mouth: Normal oral and palatal mucosa present Eyes EOM: EOMs intact bilaterally Neck Neck: Yes supple Resp Auscultation: clear to auscultation bilaterally Cardio Jugular venous distension: no JVD Rate: regular rate GI Palpation (GI): Soft to palpation Auscultation: normal bowel sounds General: Yes no CVA tenderness Back/Spine/Pelvis Back: no CVA tenderness Skin General skin exam: no rashes or lesions noted Neuro General: patient oriented x3 and moves all extremities Extrem General: Yes no pedal edema Results Reviewed Nephrology Results: Hgb, (14.0-18.0) 13.1 g/dl L 07/14/24 WBC, (4.8-10.8) 7.3 X10*3/uL 07/14/24 Plt Count, (160-400) 171 X10*3/uL 07/14/24 Sodium, (135-145) 141 mmol/L 09/11/24 Potassium, (3.3-5.1) 4.0 mmol/L 09/11/24 Chloride, (96-108) 106 mmol/L 09/11/24 Carbon Dioxide, (22-29) 25 mmol/L 09/11/24 BUN, (9-16) 19 mg/dL H 09/11/24 Creatinine, (0.5-1.4) 0.97 mg/dL 09/11/24 Calcium, (8.4-10.2) 9.6 mg/dL 09/11/24 Renal US 06/17/22 Assessment & Plan Assessment & Plan (1) Hypertension: Code(s): I10 - Essential (primary) hypertension Category: Medical Qualifiers: Hypertension type: primary hypertension Qualified Code(s): I10 - Essential (primary) hypertension (2) CKD (chronic kidney disease) stage 3, GFR 30-59 ml/min: Code(s): N18.30 - Chronic kidney disease, stage 3 unspecified Category: Medical Qualifiers: Chronic kidney disease stage 3 subtype: stage 3a (GFR 45-59) Qualified Code(s): N18.31 - Chronic kidney disease, stage 3a (3) Renal cyst: Code(s): N28.1 - Cyst of kidney, acquired Category: Medical Plan Has CKD 3 likely from vascular disease. His urine protein is negative . He has edema. He needfs vascular study. He is tolerating ACEI. Minimize PO Na. Avoid NSAID's. His urine output is good. He should avoid NSAID's. I did not make any medication changes today. Follow up blood work ordered. Answered all questions Orders: Orders Creatinine 6 Months I10 - Essential (primary) hypertension, N18.31 - Chronic kidney disease, stage 3a Blood Urea Nitrogen 6 Months I10 - Essential (primary) hypertension, N18.31 - Chronic kidney disease, stage 3a Electrolytes 6 Months I10 - Essential (primary) hypertension, N18.31 - Chronic kidney disease, stage 3a Coding Level of Care Code Est Pt Level 4 (50819) Diagnoses Primary hypertension I10 Hypertension type: primary hypertension Stage 3a chronic kidney disease N18.31 Chronic kidney disease stage 3 subtype: stage 3a (GFR 45-59) Renal cyst N28.1
--- OUTSIDE RECORDS SUMMARY | 2024-09-26 11:29 | XMS_ITS | Clinical Summary ---
Author Organization [facility] Facility Address [address] [place] [address], [place] [address] Care Team Providers Care Focuser Name Role Phone Susy Sylvester MD Primary Care Provider [phone] Allergies No known active allergies Medications trihexyphenidyl [...] of 2 - PCV) 06/01/1966 Influenza Vaccine (#1) 2024 12/02/2016 Hepatitis B Vaccine Aged Out No longe r eligible based on patient's age to complete this topic Insurance [address] [place] [id number] [place] Care Teams Focuser Relationship Specialty Start Date End Date Susy Sylvester MD [address] [place], [place] PCP - General Internal Medicine 03/31/22
--- OUTSIDE RECORDS SUMMARY | 2024-09-26 11:29 | XMS_ITS | Data Portability ---
Author Organization [place] [facility], Allergy Address [address] [address] Assessment Encounter Date Assessment Date Assessment LastModified by Organization Details LastModified Time 10/30/2023 10/30/2023 78 year old Turkmen speaking male with a history of dementia [...] sinuse s, w/o contra st 2023 024 [email or web address] [facility], [address] [place] [address], [id number], 4 11:35:27 CT, maxill ofacia l, w/o contra st 2023 024 [email or web address] [facility], [address] [place] [address], [id number], 4 10:11:43 Medication Orders doxycy maciel hyclat e 100 mg tablet 2023 024 [facility], [address] [place] [address], [id number], 4 10:36:41 flutic asone propio mynor 50 mcg/ac tuatio n nasal spray, suspen padmini 2023 024 [facility], [address] [place] [address], [id number], 5 17:52:50 Patient TargetsNo targets recorded. Patient InstructionsNo instructions recorded. Reason for Referral None Reported. Results Created Date Observation Date Name Description Value Unit Range Abnormal Flag Note LastModifiedBy Organization Detail LastModifiedTime 12/08/[address], sinus es, w/o contr ast No observ ation record ed. [email or web address] [facility] [address], [address], 12/08/2023 11:35:24 Result Notes None recorded. Problems Name Problem SNOMED Code Status Onset Date Resolution Date Notes Provider Name and Address Organization Details Recorded Time Nasal congestion 12811460 Active 024 JAYSON SHIELDS MD [address] [place] [address], [phone], [facility] - [facility] 4 11:58:59 Chronic maxillary sinusitis 83253288 Active 024 JAYSON SHIELDS MD 100 [facility] [place], [facility] [place], [address], [place] - [facility] 4 12:00:46 Chronic rhinitis 67159452 Active 024 JAYSON SHIELDS MD [address] [facility] [place], [facility] [place], [address], [place] - [facility] 4 12:01:02 Chronic sinusitis 53626416 Active 024 JAYSON SHIELDS MD 100 [facility] [place], [facility] [place], [address], [place] - [facility] 4 12:01:02 Polyp of nasal cavity 528725829 Active 024 JAYSON SHIELDS MD 100 [facility], [place], [address], [place] - [facility] 4 13:04:18 Parkinson's disease 56701223 Active 024 JAYSON SHIELDS MD 100 [facility], [place], [address], [place] - [facility] 4 11:34:00 Impaired cognition 164480112 Active 024 JAYSON SHIELDS MD 100 [facility], [place], [address], [place] - [facility] 4 11:34:12 Problem Notes None recorded. Procedures Surgical History Date Name Laterality Status Provider Name and Address Organization Details Recorded Time 4 JMSNasal/Sinus Endoscopy completed JAYSON ALEXANDER MD [address], [address], [place] - [facility] 10/30/2023 12:04:04 Cataract Surgery completed Deny Blanca [place] - [facility] 10/30/2023 11:20:20 excision of basal cell carcinoma completed Deny Blanca [place] - [facility] 10/30/2023 11:20:58 Imaging Results None recorded. Procedure Notes None recorded. Medical Equipment None [...] Updated DateTime 10/30/2023 172.72 cm 32.8 kg/m2 15719.95 g Deny Blanca [place] - [facility] 10/30/2023 11:37:14 Social History None recorded. Functional Status None recorded. Mental Status None recorded. Family History Nothing Reported. Medical History No medical history recorded. Past Encounters Encounter ID Performer Location Encounter Start Date Encounter Closed Date Diagnosis/Indication Diagnosis SNOMED-CT Code Diagnosis ICD10 Code Diagnosis Note [id number] JAYSON BARRY MD [facility] [address] [address] 10/30/2023 11:00:35 10/30/2023 12:05:28 Nasal congestion 81344320 R09.81 Chronic ma xillary sinusitis 08181478 J32.0 Chronic rhinitis 7775763 6 J31.0 Polyp of nasal cavity 73 4313471 J33.0 [id number] JAYSON BARRY MD [facility] [address] [address] 12/08/2023 10:32:17 12/08/2023 16:44:16 Chronic sinusitis 98683027 J32.9 Parkinson's disease 4904 9000 G20.A1 Impaired cognition 19213 6002 R41.89 Health Concerns Section Related Observation LastModified by Organization Detai ls LastModified Time None Recorded Concern Status LastModified by Organization Details LastModified Time None Recorded Advance Directives Directive None Recorded Payers Insurance Date Sequence Insurance Name Policy Number Policy Vargas Covered Member ID Vargas Member ID Guarantor Name 12/11/2023 2 [place] [facility] Onur Colon [id number] Onur Colon 12/11/2023 1 [place] [employer] Onur Colon [id number] Onur Colon Notes Date Note Type [...] unfortunately did not improve his symptoms. His iolyhqdi-uo-xzh and son help translate for him. JYASON ALEXANDER MD [address] [place] [address],[address], [address], [place] - [facility] 10/30/2023 13:04:39 12/08/2023 text/html Family notes kesha t patient feels improved following the antibiotics and nasal steroids. Previously noted to have incidental findings of polyps and hyperdense secretions.No other change in his history prior visit78 year old Turkmen speaking male with a history of dementia [...] surgery given to family JAYSON ALEXANDER MD 100 [facility],[place] [address], [place], [address], [place] - [facility] 12/08/2023 11:35:55
--- OUTSIDE RECORDS SUMMARY | 2024-09-26 11:29 | XMS_ITS | Encounter Summary ---
Author Organization [facility] Address [address] [place] [address] Care Team Providers Care Stone Processing Machine Operator Name Role Phone Susy Sylvester Primary Care Provider Encounter Details Date Type Department Care Team (Late st Contact Info) Description 12/21/2023 Orders Only [facility] Nuclear Medicine [address] [place] [address] Jake Angulo MD PhD [address] [place] [address] Social History Tobacco Use Types Packs/Day Years [...] Description 10/09/2024 1:00 PM EDT Office Visit [facility] Building Neurology Clinic [address] [place] [address] Cristhian Ruff DO [address] [place] [address] documented as of this encounter Visit Diagnoses Not on filedocumented in this encounter Care Teams Stone Processing Machine Operator Relationship Specialty Start Date End Date Susy Sylvester [address] [facility] [place] [address] PCP - General Internal Medicine 06/14/23 documented as of this encounter
== END 2024-09-26 11:13 | disposition home or self-care (01) ==
LOC: HO.HKAS 10:48
PROVIDERS: PCP Internal Medicine; Visit Provider Internal Medicine Nephrology
DX: I10 Essential (primary) hypertension (principal); N18.31 Chronic kidney disease, stage 3a; N28.1 Cyst of kidney, acquired
CPT/HCPCS: 99214

== ENCOUNTER → 2024-09-26 10:47 | Outpatient (BNVA) | payer MEDICARE, MEDICAID, SELFPAY | PROVIDERS: PCP Internal Medicine; Visit Provider Internal Medicine Nephrology | DX: I12.9 Hypertensive chronic kidney disease with stage 1 through stage 4 chronic kidney disease, or unspecified chronic kidney disease (principal); N18.31 Chronic kidney disease, stage 3a; N28.1 Cyst of kidney, acquired | CPT/HCPCS: 99212 ==

== ENCOUNTER 2024-11-13 12:30 | Outpatient (AMB) | payer MEDICARE, MEDICAID, SELFPAY ==
[2024-11-13 12:35] VITALS: BP 126/84; PULSE 87; O2SAT 97; BMI 33.2
--- NOTE | 2024-11-13 12:35 | MHC.PC.OV ---
Vital Signs 11/13/24 12:35 Height 5 ft 8 in Weight 218 lb 11.177 oz BMI 33.2 BP 126/84 Blood Pressure Location Lt brachial Position Sitting Pulse 87 Pulse Source Pulse Oximeter Pulse Oximetry (%) 97 Oxygen Delivery Method Room Air Intake Visit Reasons: sleeping issues/med change? Front End Wheel Loader Operator Required: No Accompanied by: Self / Same As Patient Allergies pravastatin Allergy (Intermediate, Verified 11/13/24 12:51) dry mouth Medication List - Last Reconciled 11/13/24 by Susy Harrington MD [adult diapers pull-ups As directed] albuterol sulfate 90 mcg/actuation 2 puffs inhalation Q6H PRN allopurinol 200 mg (2 x 100 mg) PO DAILY 90 days amlodipine 10 mg PO DAILY atorvastatin 40 mg PO DAILY 90 days blood pressure monitor As directed blood sugar diagnostic (Accu-Chek Guide test strips) As directed blood-glucose meter (Accu-Chek Guide Glucose Meter) As directed carbidopa-levodopa 25-100 mg 2 tabs PO BID 90 days cholecalciferol (vitamin D3) 25 mcg PO DAILY 90 days clonazepam 0.5 mg PO BID 30 days commode (bedside commode) As directed [compression stockings As directed] diclofenac sodium 1% (Voltaren Arthritis Pain) 2 grams topical QID PRN 30 days fenofibrate 54 mg PO DAILY 90 days furosemide (Lasix) 20 mg PO BID PRN 30 days lancets (Accu-Chek Fastclix Lancet Drum) As directed lancing device with lancets (Accu-Chek FastClix Lancing Device kit) As directed lisinopril 40 mg PO DAILY 90 days metformin ER 500 mg PO DAILY mupirocin 2% 1 appl topical QID omeprazole 20 mg PO DAILY 90 days polyethylene glycol 3350 (Miralax) 17 grams PO DAILY sennosides-docusate sodium 8.6-50 mg (Senna Plus) 2 tab-caps (2 x 8.6-50 mg) PO BEDTIME 60 days underpads (Bed Underpads) Use 8 pads per day venlafaxine ER 37.5 mg PO BEDTIME 90 days walker walker with seat and wheels Tobacco use date assessed: 11/13/24 Fall risk assessment: No Falls in past year Last assessed Fall Risk: 11/13/24 Dental Screening Dental Screen Date: 11/13/24 Did you have a dental visit in the last 12 months?: No Did you have a dental problem in the last 6 months where you did not have access to dental care?: No Was dental information given to patient?: No HPI HPI Comments History of Present Illness Details The patient is a 79-year-old male presenting for management of multiple chronic conditions including diabetes mellitus, hypertension, and Parkinson's disease. The patient has a history of diabetes mellitus, with a recent fasting blood glucose level of 124 mg/dL, indicating suboptimal control. He is currently on metformin 500 mg once daily for diabetes management. Hypertension is managed with amlodipine and lisinopril, with no recent changes in medication noted. The patient has Parkinson's disease, confirmed by a CAT scan in July showing changes consistent with the diagnosis. He is on carbidopa-levodopa for symptom management, and experiences resting tremors. He also has a stage 2 ulcer, for which Hydrogel cream has been prescribed to prevent progression to deeper tissue involvement. The patient has chronic kidney disease stage 3, which has shown improvement according to recent evaluations. He experiences anxiety and depression, managed with clonazepam and venlafaxine, although venlafaxine is not effectively addressing insomnia. Quetiapine has been prescribed to aid sleep, with trazodone considered as an alternative. Some insomnia issues that happened evaluated by Neurology and Neurology gave recommendation of trazodone 25 mg along with Seroquel. The patient has a history of heart failure and follows up with a financial institution manager regularly. He also has hyperlipidemia, managed with atorvastatin and fenofibrate, with plans for laboratory evaluation in January. The patient has urinary incontinence, managed with incontinence pads, and asthma, for which he uses an inhaler. [facility] Medical History (Updated 11/13/24 @ 13:17 by Susy Harrington MD) CHF (congestive heart failure) Type 2 diabetes mellitus with hemoglobin A1c goal of less than 7.0% New onset type 2 diabetes mellitus CKD (chronic kidney disease) stage 2, GFR 60-89 ml/min On allopurinol therapy Prostate cancer CKD (chronic kidney disease) stage 3, GFR 30-59 ml/min Skin lesion Left knee pain Chronic pain syndrome Sacroiliac dysfunction Sacroiliitis Spondylosis without myelopathy or radiculopathy, lumbar region Adult general medical exam Screening for colon cancer Leg edema Urgency incontinence Parkinsons disease Mixed hyperlipidemia Essential hypertension GERD (gastroesophageal reflux disease) Lumbar degenerative disc disease Surgical History History of esophagogastroduodenoscopy (EGD) History of cataract surgery History of colonoscopy History of basal cell carcinoma (BCC) excision History of prostatectomy Family History Father No problems noted. Mother Diabetes Cancer Social History Household Members Other:: granddaughter Housing: Apartment Are you a primary caretaker resort to a significant other at home: No Do you presently have visiting nurse or other home services: No Alcohol intake: former Patient Tobacco Use Status: Never used Tobacco e-Cigarette/Vaping Use: Never Used Second Hand Smoke Exposure: No Advance Directives Date on File: 08/18/23 service: No Current occupational status: disabled Current occupation: lt handed Cognitive needs: Yes Hearing needs: No Vision needs: No Questionnaire PHQ-9 Over the last 2 weeks, how often have you been bothered by any of the following problems? 1. Little interest or pleasure in doing things: nearly every day 2. Feeling down, depressed, or hopeless: nearly every day 3. Trouble falling or staying asleep, or sleeping too much: nearly every day 4. Feeling tired or having little energy: nearly every day 5. Poor appetite or overeating: not at all 6. Feeling bad about yourself - or that you are a failure or have let yourself or your family down: not at all 7. Trouble concentrating on things, such as reading the newspaper or watching television: several days 8. Moving or speaking so slowly that other people could have noticed. Or the opposite - being so fidgety or restless that you have been moving around a lot more than usual: nearly every day 9. Thoughts that you would be better off or of hurting yourself in some way: not at all Total score: 16 Depression Screening Interpretation: Positive (no suicidal thoughts) Depression Screening Follow-up: Existing condition, New Medication prescribed and Follow-up Visit Requested Depression Screening Done: Yes 36256 - PHQ-9 Billing: Yes Source: Developed by Drs. Iggy Kelly, Ivett Easley, Chinmay Gutierrez and colleagues, with an educational darryn from [employer]. Thrive Questionnaire Date Thrive assessed: 11/13/24 I am a: Patient What is your living situation today?: I have a steady place to live Within the past 12 months, did the food you bought not last and you didn't have the money to get more?: Never true Within the past 12 months, did you worry whether your food would run out before you got money to buy more?: Never true Do you have trouble paying for medicines?: No Do you have trouble getting transportation to medical appointments?: No Do you have trouble paying your heating and electricity bill?: No Do you have trouble taking care of your child, family member or friend?: No Do you have trouble with day-to-day activities such as bathing, preparing meals, shopping, managing finances, etc.?: Yes Are you currently unemployed and looking for a job?: No Are you interested in more education?: No Please select the resources that you would like help with: None Currently or been in a relationship where the following occur: No concerns reported THRIVE Score: 0 AUDIT C Alcohol Use Questionnaire (AUDIT-C) 1. How often do you have a drink containing alcohol?: Never 3. How often do you have six or more drinks on one occasion?: Never Total Score: 0 Score Reviewed/Action Taken: No DULCE-7 AMB Questionnaire DULCE-7 Date DULCE - 7 assessed: 11/13/24 Feeling nervous, anxious, or on edge: 3 = Nearly every day Not being able to stop or control worryin = Nearly every day Worrying too much about different things: 3 = Nearly every day Trouble relaxin = Nearly every day Being so restless that it is hard to sit still: 3 = Nearly every day Becoming easily annoyed or irritable: 0 = Not at all Feeling afraid as if something awful might happen: 0 = Not at all Total DULCE-7 score (0-4 normal; 5-9 mild; 10-14 moderate; 15-21 severe): 15 Source: Developed by Ivett Butts, Chinmay Gutierrez and colleagues, with an educational darryn from [employer]. DULCE-7 Assessment Billing DULCE-7 Assessment Tool: DULCE-7 Assessment 51277 Review of Systems Const All systems reviewed & are unremarkable except as noted in HPI and below Card Denies chest pain at rest, Denies chest pain with activity, Denies edema, Denies irregular heart rhythm, Denies claudication, Denies dyspnea, Denies dyspnea on exertion, Denies orthopnea, Denies paroxysmal nocturnal dyspnea and Denies slow heart rate Resp Denies cough, Denies dyspnea and Denies dyspnea on exertion GI Denies abdominal pain, Denies change in bowel habits, Denies excessive flatus, Denies nausea and Denies vomiting Denies urinary hesitancy, Denies urinary incontinence and Denies urinary urgency Musc Denies abnormal gait, Denies atrophy, Denies deformity and Denies limited range of motion Skin/Breast Denies bleeding lesions, Denies changing lesions and Denies rash Neuro Denies abnormal gait, Denies behavioral changes and Denies lack of coordination Psych Denies behavioral changes Physical exam (Primary Care) Vital Signs: Last Vital Signs Pulse 87 11/13/24 12:35 BP 126/84 11/13/24 12:35 Pulse Ox 97 11/13/24 12:35 Oxygen Delivery Method Room Air 11/13/24 12:35 BMI result Body Mass Index 33.2 BMI Assessment/Plan discussion: High BMI High, discussed plan: lifestyle, weight reduction, dietary and physical activity Tobacco/Smoking Status: Tobacco use Status Tobacco use date assessed 11/13/24 11/13/24 12:41 Patient Tobacco Use Status Never used Tobacco 11/13/24 12:41 e-Cigarette/Vaping Use Never Used 11/13/24 12:41 PHQ-9: PHQ-9 Score PHQ-9: Total score 16 11/13/24 13:20 Depression Screening Interpretation: Positive (no suicidal thoughts) Depression Screening Follow-up: Existing condition, New Medication prescribed and Follow-up Visit Requested Thrive Assessment: Date of Thrive Assessment Date Thrive assessed 11/13/24 11/13/24 12:41 Currently or been in a relationship where the following occur: No concerns reported Const Limitations: ambulation with walker Resp Effort & Inspection: normal respiratory effort Auscultation: clear to auscultation bilaterally Cardio Jugular venous distension: no JVD Rate: regular rate Rhythm: regular rhythm Heart sounds: S1 normal heart sound present and S2 normal heart sound present Skin Wounds: wounds noted (stage 2 pressure sacral ulcer) left gluteal cleft without odor Neuro Gait exam (Neuro): Shuffling gait present Motor exam (neuro): Tremors during motor activity present bilateral upper extremity resting tremor Extrem General: Yes full ROM Results AMB Hemoglobin A1c AMB Hemoglobin A1c 6.0 % Last Edit by KEEGAN Myles on 11/13/24 13:20 Results Reviewed Results Reviewed: Laboratory Last Values Hgb A1c (Clinic) 6.0 % (4.0-6.0) 11/13/24 13:11 Coding Level of Care Code Est Pt Level 4 (84991) Complex EM visit Add On G2211 Diagnoses Essential hypertension I10 Moderate recurrent major depression F33.1 DULCE (generalized anxiety disorder) F41.1 CHF (congestive heart failure) I50.9 Heart failure type: systolic Mixed hyperlipidemia E78.2 Type 2 diabetes mellitus with hemoglobin A1c goal of less than 7.0% E11.9 Stage 3a chronic kidney disease N18.31 Chronic kidney disease stage 3 subtype: stage 3a (GFR 45-59) Stage 2 skin ulcer of sacral region L98.429 Parkinson's disease with dyskinesia and fluctuating manifestations G20.B2 Dyskinesia presence: with dyskinesia Fluctuating manifestations: with fluctuating manifestations Insomnia G47.00 Additional Codes DULCE-7 Assessment Billing - DULCE-7 Assessment Tool: DULCE-7 Assessment 03554 ([id number]) PHQ-9 - 97603 - PHQ-9 Billing: Yes ([id number]) Time Spent (min) 24 Assessment & Plan Assessment & Plan (1) Essential hypertension: Code(s): I10 - Essential (primary) hypertension Category: Medical (2) Moderate recurrent major depression: Code(s): F33.1 - Major depressive disorder, recurrent, moderate Category: Medical (3) DULCE (generalized anxiety disorder): Code(s): F41.1 - Generalized anxiety disorder Category: Medical (4) CHF (congestive heart failure): Code(s): I50.9 - Heart failure, unspecified Category: Medical Qualifiers: Heart failure type: systolic (5) Mixed hyperlipidemia: Code(s): E78.2 - Mixed hyperlipidemia Category: Medical (6) Type 2 diabetes mellitus with hemoglobin A1c goal of less than 7.0%: Code(s): E11.9 - Type 2 diabetes mellitus without complications Category: Medical (7) CKD (chronic kidney disease) stage 3, GFR 30-59 ml/min: Code(s): N18.30 - Chronic kidney disease, stage 3 unspecified Category: Medical Qualifiers: Chronic kidney disease stage 3 subtype: stage 3a (GFR 45-59) Qualified Code(s): N18.31 - Chronic kidney disease, stage 3a (8) Stage 2 skin ulcer of sacral region: Code(s): L98.429 - Non-pressure chronic ulcer of back with unspecified severity Category: Medical (9) Parkinsons disease: Code(s): G20 - Parkinson's disease Category: Medical Qualifiers: Dyskinesia presence: with dyskinesia Fluctuating manifestations: with fluctuating manifestations Qualified Code(s): G20.B2 - Parkinson's disease with dyskinesia, with fluctuations (10) Insomnia: Code(s): G47.00 - Insomnia, unspecified Category: Medical Plan Plan Patient was informed and verbally consented to the use of an ambient scribe for clinic note documentation during this visit. 1. Pressure ulcer of sacral region, stage 2 L89.152 HCC 159 The patient has been prescribed Hydrogel cream to manage the stage 2 ulcer and prevent further progression. 2. Type 2 diabetes mellitus without complications E11.9 HCC 19 Diabetes management includes metformin 500 mg once daily, with plans for laboratory evaluation to monitor glucose control. 3. Gout, unspecified M10.9 The patient is on allopurinol for gout management, with no recent attacks reported. 4. Essential (primary) hypertension I10 Hypertension is managed with amlodipine and lisinopril, with regular monitoring of blood pressure. 5. Hyperlipidemia, unspecified E78.5 Hyperlipidemia is managed with atorvastatin and fenofibrate, with laboratory evaluation planned for January. 6. Parkinson's disease with dyskinesia, with fluctuations G20.B2 HCC 78 Parkinson's disease is managed with carbidopa-levodopa, and the patient experiences resting tremors. 7. Anxiety disorder, unspecified F41.9 Anxiety is managed with clonazepam, with regular follow-up to assess effectiveness. 8. Major depressive disorder, recurrent, moderate F33.1 HCC 59 Depression is managed with venlafaxine, although it is not effectively addressing insomnia, leading to consideration of trazodone as an alternative. 9. Chronic kidney disease, stage 3 unspecified N18.30 HCC 138 Chronic kidney disease stage 3 is monitored regularly, with recent improvements noted. 10. Heart failure, unspecified I50.9 HCC 85 Heart failure is managed with regular cardiology follow-ups. 11. Unspecified urinary incontinence R32 Urinary incontinence is managed with incontinence pads and regular monitoring. 12. Unspecified asthma, uncomplicated J45.909 Asthma is managed with an inhaler, with regular monitoring of symptoms. Orders: Orders Lipid Panel Today E78.5 - Hyperlipidemia, unspecified Microalbumin, Random (w Creat) Today R80.9 - Proteinuria, unspecified Vitamin D 25-OH Total Today E55.9 - Vitamin D deficiency, unspecified AMB Hemoglobin A1c Today Z13.9 - Encounter for screening, unspecified Complete Blood Count Auto Diff Today D64.9 - Anemia, unspecified Uric Acid Today M10.9 - Gout, unspecified Comprehensive Rossiter. Panel Fast Today E11.9 - Type 2 diabetes mellitus without complications NT-proBNP Today I50.9 - Heart failure, unspecified Medications: New trazodone 25 mg (1/2 x 50 mg) PO BEDTIME PRN 90 tabs 1RF sleep 90 days meclizine 25 mg PO DAILY PRN 90 tabs 1RF motion sickness 90 days cream base no.228 (bulk) (Atrevis Hydrogel cream) 1 appl miscellaneous DAILY 1 g 1RF 30 days L98.429 - Non-pressure chronic ulcer of back with unspecified severity Discontinued venlafaxine ER Discontinued Reason: Patient Completed Course 37.5 mg PO BEDTIME 90 days 90 caps 0RF
--- OUTSIDE RECORDS SUMMARY | 2024-11-13 13:00 | XMS_ITS | Encounter Summary ---
Author Organization [facility] [facility] Address [address] [place] [address] Care Team Providers Care Food Science Professor Name Role Phone Rochelle Mckeon MD Primary Care Provider Un available Community, Pcp Primary Care Provider Unavailabl e Encounter Details Date Type Department Care Team Description 09/27/2018 Refrigeration Mechanic Helper Report Medical Records [address] [place] [address] Kelvin Jacob MD Social History Tobacco Use [...] on filedocumented in this encounter Care Teams Food Science Professor Relationship Specialty Start Date End Date Rochelle Mckeon MD PCP - General Internal Medicine 10/10/1603/01 Community, Pcp PCP - General Internal Medicine 03/02/21 documented as of this encounter
--- OUTSIDE RECORDS SUMMARY | 2024-11-13 13:00 | XMS_ITS | Encounter Summary ---
Author Organization [facility] Address [address] [place] [address] Care Team Providers Care Plush Cutter Name Role Phone Rochelle Mckeon MD Primary Care Provider Un available Community, Pcp Primary Care Provider Unavailabl e Encounter Details Date Type Department Care Team Description 08/03/2020 Debubblizer Report Medical Records [address] [place] [id number] Kelvin Jacob MD Social History Tobacco Use [...] on filedocumented in this encounter Care Teams Plush Cutter Relationship Specialty Start Date End Date Rochelle Mckeon MD PCP - General Internal Medicine 10/10/1603/01 Community, Pcp PCP - General Internal Medicine 03/02/21 documented as of this encounter
--- OUTSIDE RECORDS SUMMARY | 2024-11-13 13:00 | XMS_ITS | Encounter Summary ---
Author Organization [facility] Address [address] [place] [address] Care Team Providers Care Photoengraver Apprentice Name Role Phone Rochelle Mckeon MD Primary Care Provider Un available Community, Pcp Primary Care Provider Unavailabl e Encounter Details Date Type Department Care Team Description 09/12/2017 Director Learning And Development Report Medical Records [address] [place] [address] Kelvin Jacob MD Social History Tobacco Use [...] on filedocumented in this encounter Care Teams Photoengraver Apprentice Relationship Specialty Start Date End Date Rochelle Mckeon MD PCP - General Internal Medicine 10/10/1603/01 Community, Pcp PCP - General Internal Medicine 03/02/21 documented as of this encounter
--- OUTSIDE RECORDS SUMMARY | 2024-11-13 13:00 | XMS_ITS | Clinical Summary ---
Author Organization [facility] Address [address] [place] [address], [place] [address] Care Team Providers Care Childbirth And Infant Care Teacher Name Role Phone Susy Sylvester MD Primary Care Provider [phone] Allergies No known active allergies Medications trihexyphenidyl [...] age to complete this topic Insurance [address] [place] [id number] [place] Care Teams Childbirth And Infant Care Teacher Relationship Specialty Start Date End Date Susy Sylvester MD [address] [place], [place] PCP - General Internal Medicine 03/31/22
--- OUTSIDE RECORDS SUMMARY | 2024-11-13 13:00 | XMS_ITS | Encounter Summary ---
Author Organization [facility] Address [address] [place] [address] Care Team Providers Care Pinsetter Mechanic Automatic Name Role Phone Rochelle Mckeon MD Primary Care Provider Un available Community, Pcp Primary Care Provider Unavailabl e Encounter Details Date Type Department Care Team Description 03/07/2017 Filter Assembler Report Medical Records [address] [place] [id number] Kelvin Jacob MD Social History Tobacco Use [...] on filedocumented in this encounter Care Teams Pinsetter Mechanic Automatic Relationship Specialty Start Date End Date Rochelle Mckeon MD PCP - General Internal Medicine 10/10/1603/01 Community, Pcp PCP - General Internal Medicine 03/02/21 documented as of this encounter
--- OUTSIDE RECORDS SUMMARY | 2024-11-13 13:00 | XMS_ITS | Clinical Summary ---
Author Organization [employer] [facility] Address [address] [place] [address] Care Team Providers Care Javascript Application Developer Name Role Phone Community, Pcp Primary Care [...] 78 06/20/2017 9:28 AM EDT Temperature 35.9 C (96.7 F) 06/20/2017 9:28 AM EDT Respiratory Rate 16 06/20/2017 9:28 AM EDT [...] 04/20/2010 BMI CHECK/ADVISE 03/20/2024 01/19/2017, 12/02/2016 INFLUENZA (#1) 2024 12/02/2016 Care Teams Javascript Application Developer Relationship Specialty Start Date End Date Community, Pcp PCP - General Internal Medicine 03/02/21
--- OUTSIDE RECORDS SUMMARY | 2024-11-13 13:00 | XMS_ITS | Encounter Summary ---
Author Organization [facility] Address [address] [place] [address] Care Team Providers Care Manager Pmo Name Role Phone Rochelle Mckeon MD Primary Care Provider Un available Community, Pcp Primary Care Provider Unavailabl e Reason for Visit * Reason Onset Date Comments Pole Inspector Feedback 12/05/2016 Urology Encounter Details Date Type Department Care Team Description 12/05/2016 Telephone Adult Medicine [address] [phone] Tammy Gallardo DO Pole Inspector Feedback (Urology) Social History Tobacco Use Types Packs/Day Years Used Date Smoking Tobacco: Never Sex Assigned at Date Recorded Not on file documented as of this encounter Miscellaneous Notes * Telephone Encounter - Tammy Lawson DO - 12/06/2016 1:40 PM EDT They aren't available. Done in [place] * Telephone Encounter - Juan Luis Smith - 12/06/2016 9:27 AM EDT If possible could these be placed in [facility] so we can schedule appt. Thanks * Telephone Encounter - Tammy Lawson DO - 12/05/2016 3:16 PM EDT Pathology may be in [place] * Telephone Encounter - Juan Luis Smith [...] filedocumented in this encounter Care Teams Manager Pmo Relationship Specialty Start Date End Date Rochelle Mckeon MD PCP - General Internal Medicine 10/10/1603/01 [facility], Pcp PCP - General Internal Medicine 03/02/21 documented as of this encounter
--- OUTSIDE RECORDS SUMMARY | 2024-11-13 13:01 | XMS_ITS | Encounter Summary ---
Author Organization [facility] Address [address] [place] [address] Care Team Providers Care Data Analyst Report Writer Name Role Phone Susy Sylvester Primary Care Provider [phone] Encounter Details Date Type Department Care Team (Late st Contact Info) Description 12/21/2023 Orders Only [facility] Nuclear Medicine [address] [place] [address] [phone] Jake Angulo MD PhD [address] [place], [place] [phone] Social History Tobacco Use Types Packs/Day Years [...] Care Team (Late st Contact Info) Description 06/06/2025 3:00 PM EDT Office Visit [facility] [address] [place] [address] Akua Maharaj MD [address] [place], [place] [phone] documented as of this encounter Visit Diagnoses Not on filedocumented in this encounter Care Teams Data Analyst Report Writer Relationship Specialty Start Date End Date Susy Sylvester [address] [place] [address] [place] [address] PCP - General Internal Medicine 06/14/23 documented as of this encounter
--- OUTSIDE RECORDS SUMMARY | 2024-11-13 13:01 | XMS_ITS | Clinical Summary ---
Author Organization [facility] Address [address] [place] [address] Care Team Providers Care Middleware Consultant Name Role Phone Susy Sylvester Primary Care Provider [phone] Allergies No known active allergies Medications meclizine [...] times a day. 1175 tablet 06/05/2024 Active QUEtiapine (SEROquel) 50 mg tablet Take 1 tablet (50 mg total) by mouth nightly. 90 tablet 1 10/09/2024 Active carbidopa-levod opa (SINEMET) 25-100 mg tablet Take 2 tablets by mouth 3 times a day. 540 tablet 3 10/09/2024 Active Encounters Date Type Department Care Team Description 10/09/2024 1:00 PM EDT Office Visit [facility] [address] [place] [phone] Cristhian Ruff DO Parkinson's disease, unspecified whether dyskinesia present, unspecified whether manifestations fluctuate (HCC) (Primary Dx) 10/09/2024 Refill [facility] [address] [place] [id number] Cristhian Ruff DO from Last 3 Months Social History Tobacco [...] Sign Reading Time Taken Comments Blood Pressure 124/68 10/09/2024 12:31 PM EDT Pulse 91 10/09/2024 12:31 PM EDT Temperature 36.8 C (98.2 F) 10/09/2024 12:28 PM EDT Respiratory Rate 16 10/09/2024 12:28 PM EDT Oxygen Saturation 96% 06/05/2024 11:45 AM EDT Inhaled Oxygen Concentration - - Weight 101.2 kg (223 lb) 10/09/2024 12:28 PM EDT Height 172.7 cm (5' 8 ) 10/09/2024 12:28 PM EDT Body Mass Index 33.91 10/09/2024 12:28 PM EDT Plan of Treatment Upcoming Encounters Date Type Department Care Team (Late st Contact Info) Description 06/06/2025 3:00 PM EDT Office Visit [facility] [address] [place] [phone] Akua Maharaj MD [address] [place] [phone] Health Maintenance Due Date Last Done Comments [...] Social Drivers of Health Annual Screening 03/20/2024 Influenza Vaccine (#1) 2024 , 12/16/2022, 12/21/2021, Additional history exists Fall Risk Screening 06/05/2025 06/05/2024 DTaP,Tdap,and Td Vaccines (3 - Td or Tdap) 11/25/2030 11/25/2020, 04/20/2010 Tobacco Screening 03/20/2042 06/05/2024 Hepatitis B Vaccines Aged Out No long er eligible based on patient's age [id number] [facility] MEDICARE Care Teams Middleware Consultant Relationship Specialty Start Date End Date Susy Sylvester [address] [place] [address] [place] [id number] PCP - General Internal Medicine 06/14/23
== END 2024-11-13 13:12 | disposition home or self-care (01) ==
LOC: HO.HMCH 12:31
PROVIDERS: PCP Internal Medicine; Visit Provider Internal Medicine
DX: I13.0 Hypertensive heart and chronic kidney disease with heart failure and stage 1 through stage 4 chronic kidney disease, or unspecified chronic kidney disease (principal); F33.1 Major depressive disorder, recurrent, moderate; I50.9 Heart failure, unspecified; N18.31 Chronic kidney disease, stage 3a; E11.22 Type 2 diabetes mellitus with diabetic chronic kidney disease; G20.B2 Parkinson's disease with dyskinesia, with fluctuations; L98.429 Non-pressure chronic ulcer of back with unspecified severity; E78.2 Mixed hyperlipidemia; F41.1 Generalized anxiety disorder; G47.00 Insomnia, unspecified

== ENCOUNTER → 2024-11-13 12:30 | Outpatient (BNVA) | payer MEDICARE, MEDICAID, SELFPAY | PROVIDERS: PCP Internal Medicine; Visit Provider Internal Medicine | DX: F33.1 Major depressive disorder, recurrent, moderate (principal); F41.1 Generalized anxiety disorder; I13.0 Hypertensive heart and chronic kidney disease with heart failure and stage 1 through stage 4 chronic kidney disease, or unspecified chronic kidney disease; E11.22 Type 2 diabetes mellitus with diabetic chronic kidney disease; N18.31 Chronic kidney disease, stage 3a; I50.9 Heart failure, unspecified; E78.2 Mixed hyperlipidemia; E11.9 Type 2 diabetes mellitus without complications; L98.429 Non-pressure chronic ulcer of back with unspecified severity; G20.B2 Parkinson's disease with dyskinesia, with fluctuations; G47.00 Insomnia, unspecified | CPT/HCPCS: 83036; 96127; 99212 ==

== ENCOUNTER 2024-11-21 11:40 | Outpatient (AMB) | payer MEDICARE, MEDICAID, SELFPAY ==
--- NOTE | 2024-11-21 11:50 | A.OFFVIS_ITS ---
Vital Signs 11/21/24 11:51 Height 5 ft 8 in Weight 219 lb BMI 33.3 BP 147/69 H Blood Pressure Location Lt brachial Position Sitting Pulse 83 Pulse Oximetry (%) 98 Oxygen Delivery Method Room Air Intake Visit Reasons: 8 mo f/u Intake Note: Patient 8 month follow up for Chronic LLQ pain Patient cc: abdominal bloating with Chronic LLQ pain and some dizziness on and off. Glost Tile Shader Required: Yes [place]ost Tile Sh[place] [facility] [place] Accompanied by: Family/Other Allergies pravastatin Allergy (Intermediate, Verified 11/25/24 10:08) dry mouth Medication List - Last Reconciled 11/21/24 by Robby Bentley MD [adult diapers pull-ups As directed] albuterol sulfate 90 mcg/actuation 2 puffs inhalation Q6H PRN allopurinol 200 mg (2 x 100 mg) PO DAILY 90 days amlodipine 10 mg PO DAILY atorvastatin 40 mg PO DAILY 90 days blood pressure monitor As directed blood sugar diagnostic (Accu-Chek Guide test strips) As directed blood-glucose meter (Accu-Chek Guide Glucose Meter) As directed carbidopa-levodopa 25-100 mg 2 tabs PO BID 90 days cholecalciferol (vitamin D3) 25 mcg PO DAILY 90 days clonazepam 0.5 mg PO BID 30 days commode (bedside commode) As directed [compression stockings As directed] cream base no.228 (bulk) (Atrevis Hydrogel cream) 1 appl miscellaneous DAILY 30 days diclofenac sodium 1% (Voltaren Arthritis Pain) 2 grams topical QID PRN 30 days fenofibrate 54 mg PO DAILY 90 days furosemide (Lasix) 20 mg PO BID PRN 30 days lancets (Accu-Screenzk Fastclix Lancet Drum) As directed lancing device with lancets (Accu-Screenzk FastClix Lancing Device kit) As directed lisinopril 40 mg PO DAILY 90 days meclizine 25 mg PO DAILY PRN 90 days metformin ER 500 mg PO DAILY mupirocin 2% 1 appl topical QID omeprazole 20 mg PO DAILY 90 days polyethylene glycol 3350 (Miralax) 17 grams PO DAILY sennosides-docusate sodium 8.6-50 mg (Senna Plus) 2 tab-caps (2 x 8.6-50 mg) PO BEDTIME 60 days trazodone 25 mg (1/2 x 50 mg) PO BEDTIME PRN 90 days underpads (Bed Underpads) Use 8 pads per day walker walker with seat and wheels HPI HPI 8 mo f/u: Details: GI CLINIC VISIT FOR THIS 79 YEAR OLD BARBADIAN-SPEAKING MALE WITH HYPERTENSION, HYPERLIPIDEMIA, GERD AND PARKINSON'S DISEASE REFERRED TO GI FOR COLON CANCER SCREENING PATIENT IS STATUS POST RADICAL PROSTATECTOMY FOR PROSTATE CANCER IN 2010 TODAY'S VISIT: Patient cc: abdominal bloating with Chronic LLQ pain Pt is accompanied by his GD who interpreted for the patient. Pt complains of early satiety and intermittent bloating and LLQ pain for the past several months. Notes post prandial bloating - which lasts until the next day. States he is having regular BMs and denies constipation. Takes Miralax daily Has a BM every morning - normal pasty stools. PAST VISITS: Complains of chronic constipation and has a BM every 3 days. Pt reports a good appetite. Patient takes Prilosec every morning for GERD denies symptoms of dysphagia, nausea, vomiting, change in appetite or weight. Denies recent change in bowel habits, constipation, diarrhea, black stools or rectal bleeding. Patient denies major cardiac or pulmonary problems, loud snoring or sleep apnea Denies problems with anesthesia in the past. Denies being on chronic anticoagulation. Patient denies known family history of colon polyps, colon cancer or other GI malignancies. Pt denies tobacco and past ETOH use. 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 Mildly motion limited examination. No acute inflammatory process identified within the abdomen or pelvis. 2. Colonic diverticulosis. No CT evidence for acute diverticulitis. ENDOSCOPIC STUDIES: 02/26/24 EGD AND COLON SHOWED: Endoscopy Findings: ESOPHAGUS: Small hiatal hernia STOMACH: Moderate diffuse gastric erythema DUODENUM: Normal Colonoscopy Findings: Three small polyps were removed Moderate diverticulosis seen in the sigmoid colon Moderate hemorrhoids on retroflexed exam. Plan: Pt advised to discontinue screening colonoscopies in the future due to advanced age and comorbidities. BIOPSIES SHOWED: A. Stomach, antrum, biopsy: Antral-type mucosa with mild chronic inactive inflammation; no Helicobacter organisms seen. B. Colon, transverse, polypectomies: - Tubular adenoma; negative for high-grade dysplasia or carcinoma. - Colonic mucosa with mild surface hyperplastic changes. C. Colon, sigmoid, polypectomy: Hyperplastic mucosal polyp Letter sent with biopsy results. PAST EGD/COLONOSCOPY: Patient denies having an EGD in the past He reports having a colonoscopy in [place] > 8 yrs ago. Normal per patient. PAST GI HISTORY BY REVIEW OF MEDICAL RECORDS: 12/2021 PATIENT WAS SEEN BY DR. WONG: This is a 76-year-old male with hypertension, mixed hyperlipidemia, GERD and Parkinson's disease that complains of low back pain that has been present for ye ars. This is it to lumbar degenerative disc disease and is follow by pain management. Blood pressure stable. Lipid panel was order. GERD stable with PPIs as needed. Parkinson's disease has not significantly changed with carbidopa-levodopa follow by Neurology. Still has occasional resting tremor in hands. Accompanied by family member. Denies any chest pain or shortness of breath [facility] Medical History CHF (congestive heart failure) Type 2 diabetes mellitus with hemoglobin A1c goal of less than 7.0% New onset type 2 diabetes mellitus CKD (chronic kidney disease) stage 2, GFR 60-89 ml/min On allopurinol therapy Prostate cancer CKD (chronic kidney disease) stage 3, GFR 30-59 ml/min Skin lesion Left knee pain Chronic pain syndrome Sacroiliac dysfunction Sacroiliitis Spondylosis without myelopathy or radiculopathy, lumbar region Adult general medical exam Screening for colon cancer Leg edema Urgency incontinence Parkinsons disease Mixed hyperlipidemia Essential hypertension GERD (gastroesophageal reflux disease) Lumbar degenerative disc disease Surgical History History of esophagogastroduodenoscopy (EGD) History of cataract surgery History of colonoscopy History of basal cell carcinoma (BCC) excision History of prostatectomy Family History Father No problems noted. Mother Diabetes Cancer Social History Household Members Other:: granddaughter Housing: Apartment Are you a primary primary health care nurse to a significant other at home: No Do you presently have visiting nurse or other home services: No Alcohol intake: former Patient Tobacco Use Status: Never used Tobacco e-Cigarette/Vaping Use: Never Used Second Hand Smoke Exposure: No Advance Directives Date on File: 08/18/23 service: No Current occupational status: disabled Current occupation: lt handed Cognitive needs: Yes Hearing needs: No Vision needs: No Review of Systems Const All systems reviewed & are unremarkable except as noted in HPI and below Physical Exam Vital Signs: Last Vital Signs Pulse 83 11/21/24 11:51 BP 147/69 H 11/21/24 11:51 Pulse Ox 98 11/21/24 11:51 Oxygen Delivery Method Room Air 11/21/24 11:51 BMI result Body Mass Index 33.3 Const General: healthy appearing and no acute distress Nutritional Appearance: obese Orientation/consciousness: patient oriented x3 Limitations: language barrier and ambulation with walker HEENT Head: Yes normal to inspection Ears: hearing grossly normal bilaterally Eyes Sclerae: sclerae normal Pupils: Equal, round and reactive pupils present Neck Neck: Yes normal visual inspection Chest Chest palpation & inspection: normal inspection of the chest Resp Effort & Inspection: normal respiratory effort Auscultation: clear to auscultation bilaterally Cardio Palpation: normal PMI Rate: regular rate Rhythm: regular rhythm Heart sounds: S1 normal heart sound present, S2 normal heart sound present and no murmurs GI Palpation (GI): Soft to palpation, nontender and No hepatosplenomegaly present Auscultation: normal bowel sounds Rectal Exam - Male: Yes deferred Skin General skin exam: no rashes or lesions noted Neuro General: patient oriented x3, gait normal and moves all extremities Cranial nerves: Yes Equal, round and reactive pupils present Extrem General: Yes pedal edema (trace edema) and Yes other (bilateral hand tremors) Psych Appearance: grossly normal Mental Status: mental status grossly normal Assessment & Plan Assessment & Plan (1) GERD (gastroesophageal reflux disease): Code(s): K21.9 - Gastro-esophageal reflux disease without esophagitis Category: Medical Qualifiers: Esophagitis presence: esophagitis presence not specified Qualified Code(s): K21.9 - Gastro-esophageal reflux disease without esophagitis (2) Chronic LLQ pain: Code(s): R10.32 - Left lower quadrant pain; G89.29 - Other chronic pain Category: Medical (3) History of colon polyps: Code(s): Z86.0100 - Personal history of colon polyps, unspecified Category: Medical (4) Postprandial abdominal bloating: Code(s): R14.0 - Abdominal distension (gaseous) Category: Medical Plan 79 YEAR OLD BARBADIAN-SPEAKING MALE WITH HYPERTENSION, HYPERLIPIDEMIA, GERD AND PARKINSON'S DISEASE REFERRED TO GI FOR COLON CANCER SCREENING PATIENT IS STATUS POST RADICAL PROSTATECTOMY FOR PROSTATE CANCER IN 2010 Patient denies major cardiac or pulmonary problems, loud snoring or sleep apnea Denies problems with anesthesia in the past. Denies being on chronic anticoagulation. Patient denies known family history of colon polyps, colon cancer or other GI malignancies. He reports having a colonoscopy in [place] > 8 yrs ago. Normal per patient. 08/24/23 Pt complains of intermittent LLQ pain for the past 5 months. Complains of chronic constipation and has a BM every 3 days. EGD and colon - scheduled 02/26/24 03/21/24 Pt complains of intermittent LLQ pain for the past 8 months. States he is having regular BMs and denies constipation EGD and colon results were reviewed Pt advised to discontinue screening colonoscopies in the future due to advanced age and comorbidities. FU in 3 months - schedule 02/27/25 Medications: New simethicone (Gas Relief (simethicone)) 125 mg PO BID-QID PRN 90 caps 1RF abdominal distention 60 days R14.0 - Abdominal distension (gaseous) Coding Level of Care Code Est Pt Level 4 (23501) Diagnoses Gastroesophageal reflux disease, unspecified whether esophagitis present K21.9 Esophagitis presence: esophagitis presence not specified Chronic LLQ pain R10.32; G89.29 History of colon polyps Z86.0100 Postprandial abdominal bloating R14.0 Time Spent (min) 22
[2024-11-21 11:51] VITALS: BP 147/69; PULSE 83; O2SAT 98; BMI 33.3
--- OUTSIDE RECORDS SUMMARY | 2024-11-21 13:21 | XMS_ITS | Clinical Summary ---
Author Organization [facility] Address [address] [place] [address] Care Team Providers Care Director Workforce Management Name Role Phone Susy Sylvester Primary Care Provider [phone] Allergies No known active allergies Medications meclizine [...] Description 10/09/2024 1:00 PM EDT Office Visit [facility] [address] [place] [phone] Cristhian Ruff DO Parkinson's disease, unspecified whether dyskinesia present, unspecified whether manifestations fluctuate (HCC) (Primary Dx) 10/09/2024 Refill [facility] [address] [place] [phone] Cristhian Ruff DO from Last 3 Months [...] Description 06/06/2025 3:00 PM EDT Office Visit [facility] [address] [place] [phone] Akua Maharaj MD [address] [place] [phone] Health Maintenance Due Date Last Done Comments Hepatitis C Screening 1945 Medicare AWV 06/01/1946 Pneumococcal Vaccine: 50+ Years (1 of 1 - PCV) 06/01/1997 Zoster Vaccines (1 of 2) 06/01/1997 RSV Vaccine (60+ years old and patients) (1 - 1-dose 75+ series) 06/01/2022 Alcohol/Substance Use Screening 03/20/2024 Depression Screening and Follow-Up 03/20/2024 Health Care Proxy Review 03/20/2024 Social Drivers of Health Annual Screening 03/20/2024 COVID-19 Vaccine ( - season) 2024 12/11/2021, 04/15/2021, 07/27/2020, Additional history exists Influenza Vaccine (#1) 2024 , 12/16/2022, 12/21/2021, Additional history exists Fall Risk Screening 06/05/2025 06/05/2024 DTaP,Tdap,and Td Vaccines (3 - Td or Tdap) 11/25/2030 11/25/2020, 04/20/2010 Tobacco Screening 03/20/2042 06/05/2024 Hepatitis B Vaccines Aged Out No long er eligible based on patient's age [id number] [facility] MEDICARE Care Teams Director Workforce Management Relationship Specialty Start Date End Date Susy Sylvester [address] [place] [address] [place] [address] PCP - General Internal Medicine 06/14/23
--- OUTSIDE RECORDS SUMMARY | 2024-11-21 13:21 | XMS_ITS | Clinical Summary ---
Author Organization [facility] Facility Address [address] [place] [address], [place] [address] Care Team Providers Care Lead Architect Name Role Phone Susy Sylvester MD Primary Care Provider [phone] Allergies No known active allergies Medications trihexyphenidyl [...] patient's age to complete this topic Insurance [address] [place] [id number] [place] Care Teams Lead Architect Relationship Specialty Start Date End Date Susy Sylvester MD [address] [place], [place] PCP - General Internal Medicine 03/31/22
--- OUTSIDE RECORDS SUMMARY | 2024-11-21 13:21 | XMS_ITS | Encounter Summary ---
Author Organization [facility] Address [address] [place] [address] Care Team Providers Care Lineman Name Role Phone Susy Sylvester Primary Care Provider [phone] Encounter Details Date Type Department Care Team (Late st Contact Info) Description 12/21/[address] [facility] Nuclear Medicine [address], [place] [phone] Jake Angulo MD PhD [address], [place] [phone] Social History Tobacco Use Types Packs/Day Years [...] Description 06/06/2025 3:00 PM EDT Office Visit [facility] [address] [place] [address] Akua Maharaj MD [address], [place] [phone] documented as of this encounter Visit Diagnoses Not on filedocumented in this encounter Care Teams Lineman Relationship Specialty Start Date End Date Susy Sylvester [address] [place] [address] [place] [address] PCP - General Internal Medicine 06/14/23 documented as of this encounter
== END 2024-11-21 12:31 | disposition home or self-care (01) ==
LOC: HO.HGI 11:41
PROVIDERS: PCP Internal Medicine; Visit Provider Internal Medicine Gastroenterology
DX: K21.9 Gastro-esophageal reflux disease without esophagitis (principal); R10.32 Left lower quadrant pain; G89.29 Other chronic pain; Z86.0100 Personal history of colon polyps, unspecified; R14.0 Abdominal distension (gaseous)
CPT/HCPCS: 99214

== ENCOUNTER → 2024-11-21 11:40 | Outpatient (BNVA) | payer MEDICARE, MEDICAID, SELFPAY | PROVIDERS: PCP Internal Medicine; Visit Provider Internal Medicine Gastroenterology | DX: R10.32 Left lower quadrant pain (principal); G89.29 Other chronic pain; R14.0 Abdominal distension (gaseous); K21.9 Gastro-esophageal reflux disease without esophagitis; Z86.0100 Personal history of colon polyps, unspecified | CPT/HCPCS: 99212 ==

== ENCOUNTER 2024-11-25 09:42 | Outpatient (AMB) | payer MEDICARE, MEDICAID, SELFPAY ==
--- NOTE | 2024-11-25 09:45 | MHC.OFFVIS ---
Intake Visit Reasons: Follow up/PSA/PVR Intake Note: Patient is present for PSA/PVR Urology Medication:ALLOPURINOL Antibiotic Allergy:PRAVASTATIN Blood Thinner:NONE TODAY'S PVR:0ML'S Stitching Department Supervisor Required: No Allergies pravastatin Allergy (Intermediate, Verified 11/25/24 10:08) dry mouth Medication List - Last Reconciled 11/25/24 by REGIS Briceño [adult diapers pull-ups As directed] albuterol sulfate 90 mcg/actuation 2 puffs inhalation Q6H PRN allopurinol 200 mg (2 x 100 mg) PO DAILY 90 days amlodipine 10 mg PO DAILY atorvastatin 40 mg PO DAILY 90 days blood pressure monitor As directed blood sugar diagnostic (Accu-Chek Guide test strips) As directed blood-glucose meter (Accu-Chek Guide Glucose Meter) As directed carbidopa-levodopa 25-100 mg 2 tabs PO BID 90 days cholecalciferol (vitamin D3) 25 mcg PO DAILY 90 days clonazepam 0.5 mg PO BID 30 days commode (bedside commode) As directed [compression stockings As directed] cream base no.228 (bulk) (Atrevis Hydrogel cream) 1 appl miscellaneous DAILY 30 days diclofenac sodium 1% (Voltaren Arthritis Pain) 2 grams topical QID PRN 30 days fenofibrate 54 mg PO DAILY 90 days furosemide (Lasix) 20 mg PO BID PRN 30 days lancets (Accu-Chek Fastclix Lancet Drum) As directed lancing device with lancets (Accu-Chek FastClix Lancing Device kit) As directed lisinopril 40 mg PO DAILY 90 days meclizine 25 mg PO DAILY PRN 90 days metformin ER 500 mg PO DAILY mupirocin 2% 1 appl topical QID omeprazole 20 mg PO DAILY 90 days polyethylene glycol 3350 (Miralax) 17 grams PO DAILY quetiapine 50 mg PO DAILY sennosides-docusate sodium 8.6-50 mg (Senna Plus) 2 tab-caps (2 x 8.6-50 mg) PO BEDTIME 60 days simethicone (Gas Relief (simethicone)) 125 mg PO BID-QID PRN 60 days trazodone 25 mg (1/2 x 50 mg) PO BEDTIME PRN 90 days underpads (Bed Underpads) Use 8 pads per day walker walker with seat and wheels HPI Comments Details: nOur is a very pleasant 78-year-old male patient of Dr. Harrington who was accompanied by grand-daughter at today's office visit. He has a past medical history of chronic kidney disease, chronic pain syndrome, urinary incontinence, prostate cancer, Parkinson's disease, mixed hyperlipidemia, hypertension, GERD, and lumbar degenerative disc disease. He presents to the office today for follow-up of his urological conditions prostate cancer, urinary incontinence, and lower urinary tract symptoms. In discussion with the patient today he reports to be doing and feeling well. He reports significant improvement in lower urinary tract symptoms of urinary urgency and frequency with 75 mg of Gemtesa. Previously patient had trialed Myrbetriq however felt this worsened his lower urinary tract symptoms. He discusses his longstanding history of lower urinary tract symptoms in the setting of Parkinson's disease. He denies hematuria, dysuria, foul smelling urine, changes to urinary stream, flank pain, fever, and or chills. In office urinalysis results reviewed with the patient today. PVR 0 mL. Previous workup has included a renal ultrasound 06/09 bilateral kidneys with no calculi or hydronephrosis. Simple cyst in the lower pole of the right kidney measuring 5.4 cm for which no imaging follow-up is recommended per radiology report. We discussed at length potential causes for lower urinary tract symptoms patient was experiencing. We discussed bladder triggers/irritants. He otherwise offers no other issues or concerns at this time. PSA 09/11 <0.10 Prostate cancer Prostatectomy in [place] many years ago PSA 06/07 < 0.05, 06/08 <0.05, 06/09 <0.1 Has also suffered from mild dribbling. Did encouraged to perform Kegel exercises. Previously responded to imipramine - no longer responding Overactive bladder Initial presentation urinary urgency and unsensed incontinence, Increasing frequency , He was using pads Background of Parkinson's and aged over 72 [facility] Medical History CHF (congestive heart failure) Type 2 diabetes mellitus with hemoglobin A1c goal of less than 7.0% New onset type 2 diabetes mellitus CKD (chronic kidney disease) stage 2, GFR 60-89 ml/min On allopurinol therapy Prostate cancer CKD (chronic kidney disease) stage 3, GFR 30-59 ml/min Skin lesion Left knee pain Chronic pain syndrome Sacroiliac dysfunction Sacroiliitis Spondylosis without myelopathy or radiculopathy, lumbar region Adult general medical exam Screening for colon cancer Leg edema Urgency incontinence Parkinsons disease Mixed hyperlipidemia Essential hypertension GERD (gastroesophageal reflux disease) Lumbar degenerative disc disease Surgical History History of esophagogastroduodenoscopy (EGD) History of cataract surgery History of colonoscopy History of basal cell carcinoma (BCC) excision History of prostatectomy Family History Father No problems noted. Mother Diabetes Cancer Social History Household Members Other:: granddaughter Housing: Apartment Are you a primary farm or ranch animal caretaker to a significant other at home: No Do you presently have visiting nurse or other home services: No Alcohol intake: former Patient Tobacco Use Status: Never used Tobacco e-Cigarette/Vaping Use: Never Used Second Hand Smoke Exposure: No Advance Directives Date on File: 08/18/23 service: No Current occupational status: disabled Current occupation: lt handed Cognitive needs: Yes Hearing needs: No Vision needs: No Review of Systems Const Reports as per HPI Eyes Reports no additional complaints ENT Reports no additional complaints Card Reports as per HPI Resp Reports no additional complaints GI Reports as per HPI Reports as per HPI Musc Reports as per HPI Neuro Reports as per HPI Psych Reports no additional complaints Endo Reports no additional complaints Dominic/Lymph Reports no additional complaints Aller/Immun Reports no additional complaints Physical Exam Const General: cooperative, healthy appearing, comfortable, no acute distress, well developed, alert and awake Orientation/consciousness: patient oriented x3 Limitations: ambulation with cane HEENT Head: Yes normal to inspection, Yes normocephalic and Yes atraumatic Ears: hearing grossly normal bilaterally Eyes General: appearance normal, both eyes and all related structures Neck Neck: Yes normal visual inspection and Yes trachea midline Chest Chest palpation & inspection: normal inspection of the chest Resp Effort & Inspection: normal respiratory effort and able to speak in complete sentences Cardio Rate: regular rate GI Inspection: Yes normal to inspection General: Yes no CVA tenderness Back/Spine/Pelvis Back: no CVA tenderness Skin General skin exam: no rashes or lesions noted Neuro General: patient oriented x3 Extrem General: Yes normal to inspection Psych Appearance: grossly normal and well kempt Mental Status: mental status grossly normal Speech and movement: Normal speech and movement present and Clear speech present Affect: normal affect Attitude: cooperative Thought process: Normal thought process present Thought content: Normal thought content present Insight: Fair insight present (Psych) Judgement: Fair judgement present (Psych) Office Procedures Post Void Residual Post Residual Void Post Void Residual (PVR): 0 [id number] Void Residual by ultrasound Results AMB Urinalysis, Automated UA Leukoctes 0 Vlad/uL Last Edit by TERRELL Hdz on 11/25/24 10:04 UA Nitrite Negative Last Edit by Lb Jeronimo [facility] on 11/25/24 10:04 UA Urobilinogen 0.2 mg/dL Last Edit by Lb Jeronimo [facility] on 11/25/24 10:04 UA Protein 15 mg/dL Last Edit by Lb Jeronimo [facility] on 11/25/24 10:04 UA pH 6.0 Last Edit by Lb Jeronimo [facility] on 11/25/24 10:04 UA Blood 0 Alexandro/uL Last Edit by Lb Jeronimo [facility] on 11/25/24 10:04 UA Specific [place] 1.020 Last Edit by Lb Jeronimo [facility] on 11/25/24 10:04 UA Ketone Negative Last Edit by Lb Jeronimo [facility] on 11/25/24 10:04 UA Bilirubin 0 mg/dL Last Edit by Lb Jeronimo [facility] on 11/25/24 10:04 UA Glucose 0 mg/dL Last Edit by Lb Jeronimo [facility] on 11/25/24 10:04 Results Reviewed Results Reviewed: Laboratory Last Values Urine pH (Auto) 6.0 11/25/24 10:03 Specific [place] (Auto) 1.020 11/25/24 10:03 Urine Protein (Auto) 15 mg/dL 11/25/24 10:03 Glucose (UA)(Auto) 0 mg/dL 11/25/24 10:03 Urine Ketones (Auto) Negative 11/25/24 10:03 Urine Blood (Auto) 0 Alexandro/uL 11/25/24 10:03 Urine Nitrite (Auto) Negative 11/25/24 10:03 Urine Bilirubin (Auto) 0 mg/dL 11/25/24 10:03 Urine Urobilinogen (Auto) 0.2 mg/dL 11/25/24 10:03 Leukocyte Esterase (Auto) 0 Vlad/uL 11/25/24 10:03 Assessment & Plan Assessment & Plan (1) Prostate cancer: Code(s): C61 - Malignant neoplasm of prostate Category: Medical (2) Urgency incontinence: Code(s): N39.41 - Urge incontinence Category: Medical (3) Overactive bladder: Code(s): N32.81 - Overactive bladder Category: Medical Plan In office urinalysis results reviewed with the patient today; as noted above. PVR 0 mL. Continue Gemtesa as discussed and prescribed. Recent PSA results reviewed the patient today; as noted above. Patient currently denies any bothersome urinary issues or concerns. He reports be happy with current voiding parameters. Will continue with surveillance monitoring. All questions were answered. Follow-up in 6 months with PVR; or sooner with any issues, concerns, and or questions. Orders: Orders AMB Urinalysis Automated Today Z13.9 - Encounter for screening, unspecified Patient Instructions: The patient had an opportunity to ask questions regarding the treatment plan. All questions were answered. Physical exam, labs, and imaging were discussed and reviewed in detail. As well as risks, benefits, and discussion of treatment choices. No major barriers to understanding were identified. The patient expressed understanding and agreement with the above treatment plan. The patient was made aware they should contact our office by phone for worsening of their current condition, the appearance of new symptoms, or with any questions or concerns. Compliance is encouraged with any medications and follow up testing that is ordered. It is a privilege to be allowed the opportunity to participate in? your urological care.? Again, if you have any questions or concerns If you have any questions or concerns please do not hesitate to contact me. The office is [phone]. This note is constructed using voice recognition software. While every effort has been made to ensure accuracy adjunct communications faculty member errors may have been included. Yours sincerely, REGIS Briceño Coding Level of Care Code Est Pt Level 3 (31641) Complex EM visit Add On G2211 Diagnoses Prostate cancer C61 Urgency incontinence N39.41 Overactive bladder N32.81 CPT Codes Post Residual Void - PVR CPT Code: 38687-Bioh Void Residual by ultrasound ([id number])
--- OUTSIDE RECORDS SUMMARY | 2024-11-25 11:07 | XMS_ITS | Encounter Summary ---
Author Organization [facility] Address [address] [place] [address] Care Team Providers Care Automotive Sales Manager Name Role Phone Susy Sylvester Primary Care Provider [phone] Encounter Details Date Type Department Care Team (Late st Contact Info) Description 12/21/2023 Orders Only [facility] Nuclear Medicine [address], [place] [id number] Jake Angulo MD PhD [address], [place] [id number] Social History Tobacco Use Types Packs/Day Years [...] Description 06/06/2025 3:00 PM EDT Office Visit [facility] [address] [place] [address] Akua Maharaj MD [address], [place] [id number] documented as of this encounter Visit Diagnoses Not on filedocumented in this encounter Care Teams Automotive Sales Manager Relationship Specialty Start Date End Date Susy Sylvester [address] [place] [address] [place] [address] PCP - General Internal Medicine 06/14/23 documented as of this encounter
--- OUTSIDE RECORDS SUMMARY | 2024-11-25 11:07 | XMS_ITS | Clinical Summary ---
Author Organization [facility] Address [address] [place] [address] Care Team Providers Care Branch Controller Name Role Phone Susy Sylvester Primary Care Provider [phone] Allergies No known active allergies Medications meclizine [...] Description 10/09/2024 1:00 PM EDT Office Visit [facility] [address] [place] [phone] Cristhian Ruff DO Parkinson's disease, unspecified whether dyskinesia present, unspecified whether manifestations fluctuate (HCC) (Primary Dx) 10/09/2024 Refill [facility] [address] [place] [phone] Cristhian Ruff DO from Last 3 Months [...] Description 06/06/2025 3:00 PM EDT Office Visit [facility] [address] [place] [address] Akua Maharaj MD [address] [place] [address] Health Maintenance Due Date Last Done [...] patient's age [place] [id number] [facility] MEDICARE Care Teams Branch Controller Relationship Specialty Start Date End Date Susy Sylvester [address] [place] [address] [place] [address] PCP - General Internal Medicine 06/14/23
--- OUTSIDE RECORDS SUMMARY | 2024-11-25 11:07 | XMS_ITS | Clinical Summary ---
Author Organization [facility] Address [address] [place] [address], [place] [address] Care Team Providers Care Manager Route Name Role Phone Susy Sylvester MD Primary Care Provider [phone] Allergies No known active allergies Medications trihexyphenidyl [...] patient's age to complete this topic Insurance [address] [place] [id number] [place] Care Teams Manager Route Relationship Specialty Start Date End Date Susy Sylvester MD [address] [place], [place] PCP - General Internal Medicine 03/31/22
== END 2024-11-25 10:09 | disposition home or self-care (01) ==
LOC: HO.HUSH 09:43
PROVIDERS: PCP Internal Medicine; Visit Provider Nurse Practitioner Family
DX: C61 Malignant neoplasm of prostate (principal); N39.41 Urge incontinence; N32.81 Overactive bladder; Z13.9 Encounter for screening, unspecified
CPT/HCPCS: 99213; G2211

== ENCOUNTER → 2024-11-25 09:42 | Outpatient (BNVA) | payer MEDICARE, MEDICAID, SELFPAY | PROVIDERS: PCP Internal Medicine; Visit Provider Nurse Practitioner Family | DX: N32.81 Overactive bladder (principal); N39.41 Urge incontinence; C61 Malignant neoplasm of prostate | CPT/HCPCS: 51798; 81003; 99212 ==

== ENCOUNTER 2024-12-17 10:00 | Outpatient (RCR) | payer MEDICARE, MEDICAID, SELFPAY | END 2025-01-16 16:45 | disposition home or self-care (01) | LOC: HO.WCC 10:00 | PROVIDERS: PCP Internal Medicine; Visit Provider Surgery Surgical Oncology | DX: E11.622 Type 2 diabetes mellitus with other skin ulcer (principal); L89.322 Pressure ulcer of left buttock, stage 2; L24.9 Irritant contact dermatitis, unspecified cause; R32 Unspecified urinary incontinence; I10 Essential (primary) hypertension; G20.C Parkinsonism, unspecified; R21 Rash and other nonspecific skin eruption; Z79.84 Long term (current) use of oral hypoglycemic drugs | CPT/HCPCS: 99213; 99215 ==

== ENCOUNTER 2024-12-18 09:28 | Outpatient (AMB) | payer MEDICARE, MEDICAID, SELFPAY ==
--- NOTE | 2024-12-18 09:32 | AM.OFFVISMDC ---
Intake Vital Signs 12/18/24 09:34 Height 5 ft 8 in Weight 219 lb 6 oz BMI 33.4 BP 120/68 Blood Pressure Location Lt brachial Position Sitting Pulse 76 Pulse Source Pulse Oximeter Temp 97.1 F Temp Source Temporal Artery Scan Pulse Oximetry (%) 98 Oxygen Delivery Method Room Air Intake Visit Reasons: KERVIN G0439 Intake Note: Patient is here for an Annual Wellness Visit. Employee Relations Administrator Required: Yes Employee Relations Administrator Language: Soft Top Installer Services: Employee Relations Administrator Present Employee Relations Administrator Name: My (granddaughter) Information Interpreted: non-clinical & clinical (pt decline mold release worker service prefer granddaughter to translate) Fibrous Plasterer: Fibrous Plasterer Present and Fibrous Plasterer offered & declined Accompanied by: Granddaughter Allergies pravastatin Allergy (Intermediate, Verified 12/18/24 09:50) dry mouth Medication List - Last Reconciled 12/18/24 by Susy Harrington MD [adult diapers pull-ups As directed] albuterol sulfate 90 mcg/actuation 2 puffs inhalation Q6H PRN allopurinol 200 mg (2 x 100 mg) PO DAILY 90 days amlodipine 10 mg PO DAILY atorvastatin 40 mg PO DAILY 90 days blood pressure monitor As directed blood sugar diagnostic (Accu-Chek Guide test strips) As directed blood-glucose meter (Accu-Chek Guide Glucose Meter) As directed carbidopa-levodopa 25-100 mg 2 tabs PO BID 90 days cholecalciferol (vitamin D3) 25 mcg PO DAILY 90 days clonazepam 0.5 mg PO BID 30 days commode (bedside commode) As directed [compression stockings As directed] cream base no.228 (bulk) (Atrevis Hydrogel cream) 1 appl miscellaneous DAILY 30 days diclofenac sodium 1% (Voltaren Arthritis Pain) 2 grams topical QID PRN 30 days fenofibrate 54 mg PO DAILY 90 days furosemide (Lasix) 20 mg PO BID PRN 30 days lancets (Accu-Chek Fastclix Lancet Drum) As directed lancing device with lancets (Accu-Chek FastClix Lancing Device kit) As directed lisinopril 40 mg PO DAILY 90 days meclizine 25 mg PO DAILY PRN 90 days metformin ER 500 mg PO DAILY mupirocin 2% 1 appl topical QID omeprazole 20 mg PO DAILY 90 days polyethylene glycol 3350 (Miralax) 17 grams PO DAILY quetiapine 50 mg PO DAILY sennosides-docusate sodium 8.6-50 mg (Senna Plus) 2 tab-caps (2 x 8.6-50 mg) PO BEDTIME 60 days simethicone (Gas Relief (simethicone)) 125 mg PO BID-QID PRN 60 days trazodone 25 mg (1/2 x 50 mg) PO BEDTIME PRN 90 days underpads (Bed Underpads) Use 8 pads per day walker walker with seat and wheels HPI HPI Comments History of Present Illness Details The patient is a 79-year-old male presenting for a Medicare wellness exam. [facility] handed to patient. He has a history of Diabetes Mellitus Type 2, with his last recorded HbA1c being 6%. His LDL cholesterol was 73 mg/dL in October, which is close to the target goal. The patient is also diagnosed with Parkinson's Disease and is under the care of a neurologist. Recent MRI findings indicate mild global cerebral atrophy, which may suggest the onset of dementia. He is obese with a BMI of 33, weighing 219 pounds. There is no clinical indication for nutritional supplementation with Pediasure due to his obesity. The patient has a history of basal cell carcinoma, which was removed in 2017. He also has a history of hypertension, managed with amlodipine and lisinopril. He experiences dizziness, constipation, gastroesophageal reflux disease, and insomnia, for which he is on multiple medications including meclizine, MiraLAX, omeprazole, and trazodone. He also reports mild depression, with a PHQ-9 score indicating mild depression. The patient has a history of cardiomyopathy and follows up with cardiology. He has experienced episodes of incontinence, occasionally requiring the use of diapers. [facility] Medical History (Updated 12/18/24 @ 12:44 by Susy Harrington MD) CHF (congestive heart failure) Type 2 diabetes mellitus with hemoglobin A1c goal of less than 7.0% New onset type 2 diabetes mellitus CKD (chronic kidney disease) stage 2, GFR 60-89 ml/min On allopurinol therapy Prostate cancer CKD (chronic kidney disease) stage 3, GFR 30-59 ml/min Skin lesion Left knee pain Chronic pain syndrome Sacroiliac dysfunction Sacroiliitis Spondylosis without myelopathy or radiculopathy, lumbar region Adult general medical exam Screening for colon cancer Leg edema Urgency incontinence Parkinsons disease Mixed hyperlipidemia Essential hypertension GERD (gastroesophageal reflux disease) Lumbar degenerative disc disease Surgical History History of esophagogastroduodenoscopy (EGD) History of cataract surgery History of colonoscopy History of basal cell carcinoma (BCC) excision History of prostatectomy Family History Father No problems noted. Mother Diabetes Cancer Social History Household Members Other:: granddaughter Housing: Apartment Are you a primary memory care director to a significant other at home: No Do you presently have visiting nurse or other home services: No Alcohol intake: former Patient Tobacco Use Status: Never used Tobacco e-Cigarette/Vaping Use: Never Used Second Hand Smoke Exposure: No Advance Directives Date on File: 08/18/23 service: No Current occupational status: disabled Current occupation: lt handed Cognitive needs: Yes Hearing needs: No Vision needs: No Questionnaire Medicare Wellness Checkup [age] What gender do you identify with?: male During the past 4 weeks, how much have you been bothered by emotional problems such as feeling anxious, depressed, irritable, sad or downhearted, and blue?: not at all During the past 4 weeks, has your physical & emotional health limited your social activities with family, friends, neighbors, or groups?: quite a bit During the past 4 weeks, how much bodily pain have you generally had?: severe pain During the past 4 weeks, was someone available to help you if you needed & wanted help?: yes, as much as I wanted During the past 4 weeks, what was the hardest physical activity you could do for at least 2 minutes?: heavy Can you get to places out of walking distance without help? (For eg., can you travel alone on buses, taxis or drive your car?): No Can you go shopping for groceries or clothes without someone's help?: No Can you prepare your own meals?: No Can you do your housework without help?: No Because of any health problems, do you need the help of another person with your personal care needs such as eating, bathing, dressing or getting around the house?: Yes Can you handle your own money without help?: No During the past 4 weeks, how would you rate your health in general?: very good During the past 4 weeks how have things been going for you?: pretty well Are you having difficulties driving your car?: not applicable, I don't use a car Do you always fasten your seat belt when you are in a car?: yes, usually During past 4 weeks, have you been bothered by the following: never: Sexual problems? and Teeth or denture problems?, sometimes: Falling or dizzy when standing up, Trouble eating well? and Problems using the telephone? and often: Tiredness or fatigue? Have you fallen 2 or more times in the past year?: No Are you afraid of falling?: Yes Are you a smoker?: no During the past 4 weeks, how many drinks of wine, beer, or other alcoholic beverages did you have?: no alcohol at all Do you exercise for about 20 minutes 3 or more times a week?: yes, some of the time Have you been given information to help with the following?: yes: Keeping track of your medications? and no: Hazards in your house that might hurt you? How often do you have trouble taking medicines the way you have been told to take them?: I always take medicine as prescribed How confident are you that you can control & manage most of your health problems?: somewhat confident What is your race?: or origin or descent Mini Mental State Exam (MMSE) Orientation What is the (year) (season) (date) (day) (month)?: year, season, date and day Where are we (state) (county) (town or city) (hospital) (floor)?: state, county, town or city, hospital/clinic and floor Registration Name of 3 unrelated objects clearly and slowly, then ask patient to repeat all 3 of them. (1st repeat determines score. Make sure they can repeat all three): object 1, object 2 and object 3 Attention & Calculation (CHOOSE ONE) Spell WORLD backwards (DLROW): 0 letters Language Show patient a wristwatch & ask what it is. Repeat for pencil.: watch and pencil Ask the patient to repeat the phrase 'No ifs, ands, or buts' after you.: correct Ask the patient to 'take a piece of paper with their right hand' 'fold paper in half' 'place paper on floor': take paper in right hand, fold paper in half and place paper on floor Score Score: 18 Activity of Daily Living Bathing - sponge bath, tub bath or shower: receives help in bathing more than one body part (or not bathed) Dressing - getting clothes from closets & drawers, including inner/outer garments & fasteners.: receives help getting clothes or getting dressed, or stays undressed Toileting - going to the 'toilet room' for urine/bowel elimination & cleaning self/arranging clothes: does not go to room termed toilet for elimination process Transfer: moves in & out of bed and chair without help (may use support object) Continence: has occasional 'accidents' Feeding: feeds self without help Total Score: 3 Information obtained from: patient Using telephone: independent Traveling: dependent Shopping: dependent Preparing meals: dependent Housework: dependent Taking medicine: needs assistance Managing money: dependent PHQ-9 Over the last 2 weeks, how often have you been bothered by any of the following problems? 1. Little interest or pleasure in doing things: several days 2. Feeling down, depressed, or hopeless: several days 3. Trouble falling or staying asleep, or sleeping too much: more than half the days 4. Feeling tired or having little energy: several days 5. Poor appetite or overeating: several days 6. Feeling bad about yourself - or that you are a failure or have let yourself or your family down: not at all 7. Trouble concentrating on things, such as reading the newspaper or watching television: not at all 8. Moving or speaking so slowly that other people could have noticed. Or the opposite - being so fidgety or restless that you have been moving around a lot more than usual: not at all 9. Thoughts that you would be better off or of hurting yourself in some way: not at all Total score: 6 Depression Screening Interpretation: Positive Depression Screening Follow-up: Existing condition, In treatment and Follow-up Visit Requested Depression Screening Done: Yes 96707 - PHQ-9 Billing: Yes Source: Developed by Drs. Iggy Kelly, IvettChinmay Hogue and colleagues, with an educational darryn from [employer]. Thrive Questionnaire Date Thrive assessed: 07/18/24 I am a: Patient What is your living situation today?: I have a steady place to live Within the past 12 months, did the food you bought not last and you didn't have the money to get more?: Never true Within the past 12 months, did you worry whether your food would run out before you got money to buy more?: Never true Do you have trouble paying for medicines?: No Do you have trouble getting transportation to medical appointments?: No Do you have trouble paying your heating and electricity bill?: No Do you have trouble taking care of your child, family member or friend?: No Do you have trouble with day-to-day activities such as bathing, preparing meals, shopping, managing finances, etc.?: Yes Are you currently unemployed and looking for a job?: No Are you interested in more education?: No Please select the resources that you would like help with: None Currently or been in a relationship where the following occur: No concerns reported THRIVE Score: 0 DULCE-7 AMB Questionnaire DULCE-7 Date DULCE - 7 assessed: 11/13/24 Source: Developed by Drs. Iggy Kelly, Ivett Easley, Chinmay Gutierrez and colleagues, with an educational darryn from [employer]. Review of Systems Const All systems reviewed & are unremarkable except as noted in HPI and below Card Denies chest pain at rest, Denies chest pain with activity, Denies edema, Denies irregular heart rhythm, Denies claudication, Denies dyspnea, Denies dyspnea on exertion, Denies orthopnea, Denies paroxysmal nocturnal dyspnea and Denies slow heart rate Resp Denies cough, Denies dyspnea and Denies dyspnea on exertion Physical Exam Vital Signs: Last Vital Signs Temp 97.1 F 12/18/24 09:34 Pulse 76 12/18/24 09:34 BP 120/68 12/18/24 09:34 Pulse Ox 98 12/18/24 09:34 Oxygen Delivery Method Room Air 12/18/24 09:34 BMI result Body Mass Index 33.4 Const Orientation/consciousness: patient oriented x3 Resp Effort & Inspection: normal respiratory effort Auscultation: clear to auscultation bilaterally Cardio Jugular venous distension: no JVD Rate: regular rate Rhythm: regular rhythm Heart sounds: S1 normal heart sound present and S2 normal heart sound present Neuro General: patient oriented x3 Extrem General: Yes full ROM Immunizations pneumoc 20-seth conj-dip cr(PF) 0.5 mL IM syringe Performing Provider: Susy Harrington MD Performing Location: [facility] Administered by: Amarilis Fields CMA on 12/18/24 10:13 Dose Route Admin Location Dispensed Lot Number Expiration Date [facility] [employer] 0.5 mL IM Left Deltoid 0.5 mL [id number] 12/17/25 3231-9974-44 [employer] Total Dispensed Waste 0.5 mL 0 % VIS Given Date VIS Provided VIS Publication Date 12/18/24 Single Vaccine 24 Eligibility Eligibility Date Funding Source Not [facility] Eligible 12/18/24 Private Assessment & Plan Assessment & Plan (1) Encounter for Medicare annual wellness exam: Code(s): Z00.00 - Encounter for general adult medical examination without abnormal findings (2) Moderate recurrent major depression: Code(s): F33.1 - Major depressive disorder, recurrent, moderate (3) CHF (congestive heart failure): Code(s): I50.9 - Heart failure, unspecified Qualifiers: Heart failure type: systolic (4) Type 2 diabetes mellitus with hemoglobin A1c goal of less than 7.0%: Code(s): E11.9 - Type 2 diabetes mellitus without complications (5) CKD (chronic kidney disease) stage 3, GFR 30-59 ml/min: Code(s): N18.30 - Chronic kidney disease, stage 3 unspecified Qualifiers: Chronic kidney disease stage 3 subtype: stage 3a (GFR 45-59) Qualified Code(s): N18.31 - Chronic kidney disease, stage 3a (6) Parkinsons disease: Code(s): G20 - Parkinson's disease Qualifiers: Dyskinesia presence: with dyskinesia Fluctuating manifestations: with fluctuating manifestations Qualified Code(s): G20.B2 - Parkinson's disease with dyskinesia, with fluctuations Plan Plan Patient was informed and verbally consented to the use of an ambient scribe for clinic note documentation during this visit. 1. Diabetes Mellitus Type 2 The patient's Diabetes Mellitus Type 2 is currently managed with metformin, and his last HbA1c was 6%, indicating good control. 2. Parkinson's Disease The patient is under neurological care for Parkinson's Disease and is prescribed carbidopa-levodopa. 3. Mild Global Cerebral Atrophy MRI findings suggest mild global cerebral atrophy, which may indicate early dementia; continued neurological follow-up is recommended. 4. Obesity The patient is obese with a BMI of 33, and there is no clinical indication for nutritional supplementation with Pediasure. 5. Depression The patient reports mild depression, with a PHQ-9 score indicating mild depression; current management includes Seroquel and trazodone. 6. Basal Cell Carcinoma The patient had a basal cell carcinoma removed in 2017, with no current recurrence noted. 7. Hypertension Hypertension is managed with amlodipine and lisinopril, with regular follow-up required. 8. Hyperlipidemia The patient's LDL cholesterol is 73 mg/dL, close to the target goal, and atorvastatin is prescribed for management. 9. Constipation Constipation is managed with MiraLAX, with no acute issues reported. 10. Gastroesophageal Reflux Disease Gastroesophageal reflux disease is managed with omeprazole, with no acute exacerbations reported. 11. Dizziness Dizziness is managed with meclizine, with no acute episodes reported. 12. Insomnia Insomnia is managed with trazodone and Seroquel, with ongoing monitoring for effectiveness. 13. Incontinence The patient experiences episodes of incontinence, occasionally requiring the use of diapers. 14. Cardiomyopathy The patient follows up with cardiology for cardiomyopathy, with no acute issues reported. Orders: Orders Pneumococcal 20 Immunization Today Z23 - Encounter for immunization Medications: Refilled polyethylene glycol 3350 (Miralax) 17 grams PO DAILY 510 grams 0RF Discontinued fenofibrate Discontinued Reason: Patient Completed Course 54 mg PO DAILY 90 days 90 tabs 1RF Quality Reporting (2019) Adult ([facility] 138/2/22/69) Smoking risk assessment performed?: Yes Patient Tobacco Use Status: Never used Tobacco Depression/Bipolar (159/160/161/177) PHQ-9: Total score: 6 Coding Level of Care Code Medicare First (G0438) Diagnoses Encounter for Medicare annual wellness exam Z00.00 Moderate recurrent major depression F33.1 CHF (congestive heart failure) I50.9 Heart failure type: systolic Type 2 diabetes mellitus with hemoglobin A1c goal of less than 7.0% E11.9 Stage 3a chronic kidney disease N18.31 Chronic kidney disease stage 3 subtype: stage 3a (GFR 45-59) Parkinson's disease with dyskinesia and fluctuating manifestations G20.B2 Dyskinesia presence: with dyskinesia Fluctuating manifestations: with fluctuating manifestations Additional Codes PHQ-9 - 43637 - PHQ-9 Billing: Yes ([id number]) Time Spent (min) 34 Advance Care Planning Advance Care Planning discussion: Exists, not on file Date of discussion: 12/18/24 Who was present: patient, granddaughter My and me Forms completed: Health Care Proxy Actual minutes spent: 2 Did not discuss due to Cultural/Spiritual beliefs: Yes
[2024-12-18 09:34] VITALS: BP 120/68; PULSE 76; TEMP 36.2; O2SAT 98; BMI 33.4
--- OUTSIDE RECORDS SUMMARY | 2024-12-18 10:20 | XMS_ITS | Encounter Summary ---
Author Organization [facility] Address [address] [place] [address] Care Team Providers Care Assistant Professor Sculpture Name Role Phone Susy Sylvester Primary Care Provider [phone] Encounter Details Date Type Department Care Team (Late st Contact Info) Description 12/21/2023 Orders Only [facility] Nuclear Medicine [address], [place] [phone] Jake Angulo MD PhD [address] [place], [place] [phone] Social History Tobacco Use Types Packs/Day Years [...] Description 06/06/2025 3:00 PM EDT Office Visit [facility] [address] [place] [address] Akua Maharaj MD [address] [place], [place] [phone] documented as of this encounter Visit Diagnoses Not on filedocumented in this encounter Care Teams Assistant Professor Sculpture Relationship Specialty Start Date End Date Susy Sylvester [address] [place] [address] [place] [address] PCP - General Internal Medicine 06/14/23 documented as of this encounter
--- OUTSIDE RECORDS SUMMARY | 2024-12-18 10:20 | XMS_ITS | Clinical Summary ---
Author Organization [facility] Facility Address [address] [place] [address], [place] [address] Care Team Providers Care Hangar Attendant Name Role Phone Susy Sylvester MD Primary Care Provider [phone] Allergies No known active allergies Medications trihexyphenidyl [...] patient's age to complete this topic Insurance [address] [place] [id number] [place] Care Teams Hangar Attendant Relationship Specialty Start Date End Date Susy Sylvester MD [address] [place], [place] PCP - General Internal Medicine 03/31/22
--- OUTSIDE RECORDS SUMMARY | 2024-12-18 10:20 | XMS_ITS | Data Portability ---
Author Organization [place] - [facility], Allergy Address [address] [address] Assessment Encounter Date Assessment Date Assessment LastModified by Organization Details LastModified Time 10/30/2023 10/30/2023 78 year old Lebanese speaking male with a history of dementia [...] contra st 2023 [email or web address] [facility], [address] [place] [address], [id number], 4 11:35:27 CT, maxill ofacia l, w/o contra st 2023 [email or web address], [address] [place] [address], [id number], 4 10:11:43 Medication Orders doxycy maciel hyclat e 100 mg tablet 2023 024 [facility], [address] [place] [address], [id number], 4 10:36:41 flutic asone propio mynor 50 mcg/ac tuatio n nasal spray, suspen padmini 2023 024 [facility], [address] [place] [address], [id number], 5 17:52:50 Patient TargetsNo targets recorded. Patient InstructionsNo instructions recorded. Reason for Referral None Reported. Results Created Date Observation Date Name Description Value Unit Range Abnormal Flag Note LastModifiedBy Organization Detail LastModifiedTime 12/08/[address], sinus es, w/o contr ast No observ ation record ed. [email or web address] [facility] [address], [address], 12/08/2023 11:35:24 Result Notes None recorded. Problems Name Problem SNOMED Code Status Onset Date Resolution Date Notes Provider Name and Address Organization Details Recorded Time Nasal congestion 67238694 Active 024 JAYSON SHIELDS MD [address] [place] [address], [phone], [facility] - [facility] 4 11:58:59 Chronic maxillary sinusitis 70918927 Active 024 JAYSON SHIELDS [facility] 100 [facility] [place], [place], [address], [place] [facility] [place] 4 12:00:46 Chronic rhinitis 17642677 Active 024 JAYSON SHIELDS MD 100 [facility] [place], [place], [address], [place] [facility] [place] 4 12:01:02 Chronic sinusitis 24373285 Active 024 JAYSON SHIELDS MD 100 [facility] [place], [place], [address], [place] [facility] [place] 4 12:01:02 Polyp of nasal cavity 256462014 Active 024 JAYSON SHIELDS MD 100 [facility], [place], [address], [place] [facility] 4 13:04:18 Parkinson's disease 90559134 Active 024 JAYSON SHIELDS MD 100 [facility], [address], [place], [address], [place] [facility] 4 11:34:00 Impaired cognition 746725115 Active 024 JAYSON SHIELDS MD 100 [facility], [address], [place], [address], [place] [facility] [place] 4 11:34:12 Problem Notes None recorded. Procedures Surgical History Date Name Laterality Status Provider Name and Address Organization Details Recorded Time 4 JMSNasal/Sinus Endoscopy completed JAYSON ALEXANDER MD [address], [address], [place] - [facility] 10/30/2023 12:04:04 Cataract Surgery completed Deny Blanca [place] - [facility] 10/30/2023 11:20:20 excision of basal cell carcinoma completed Deny Blanca [place] - [facility] 10/30/2023 11:20:58 Imaging Results None recorded. [...] Updated DateTime 10/30/2023 172.72 cm 32.8 kg/m2 28452.95 g Deny Blanca [place] - [facility] 10/30/2023 11:37:14 Social History None recorded. Functional Status None recorded. Mental Status None recorded. Family History Nothing Reported. Medical History No medical history recorded. Past Encounters Encounter ID Performer Location Encounter Start Date Encounter Closed Date Diagnosis/Indication Diagnosis SNOMED-CT Code Diagnosis ICD10 Code Diagnosis IMO Codes Diagnosis Note [id number] JAYSON BARRY MD [facility] [address] [address] 10/30/2023 11:00:35 10/30/2023 12:05:28 Nasal congestion 33745222 R09.81 Chronic [place] xillary sinusitis 36551173 J32.0 Chronic rhinitis 7853020 6 J31.0 Polyp of nasal cavity 73 7392608 J33.0 [id number] JAYSON BARRY MD [facility] [address] [address] 12/08/2023 10:32:17 12/08/2023 16:44:16 Chronic sinusitis 82474314 J32.9 Parkinson's disease 3602 3150 G20.A1 Impaired cognition 92736 6002 R41.89 Health Concerns Section Related Observation LastModified by Organization Detai ls LastModified Time None Recorded Concern Status LastModified by Organization Details LastModified Time None Recorded Advance Directives Directive None Recorded Payers Insurance Date Sequence Insurance Name Policy Number Policy Vargas Covered Member ID Vargas Member ID Guarantor Name 12/11/2023 2 [place] [facility] Onur Colon [id number] Onur Colon 12/11/2023 1 [place] [employer] Onur Colon [id number] Onur Colon Notes Date Note Type Note Provider Name and Address Organization Details Recorded Time 10/30/2023 text/html ROS as noted in the HPI 78 year old Lebanese speaking male with a history of dementia [...] unfortunately did not improve his symptoms. His [id number] and son help translate for him. JAYSON ALEXANDER MD [address] [place] [address],[address], [address], [facility] - [facility] 10/30/2023 13:04:39 12/08/2023 text/html ROS as noted in the HPI Family notes that patient feels improved following the antibiotics and nasal steroids. Previously noted to have incidental findings of polyps and hyperdense secretions.No other change in his history prior visit78 year old Lebanese speaking male with a history of dementia [...] given to family JAYSON ALEXANDER MD 100 [facility],[place] [address], [place], [address], [facility] - [facility] 12/08/2023 11:35:55
--- OUTSIDE RECORDS SUMMARY | 2024-12-18 10:20 | XMS_ITS | Clinical Summary ---
Author Organization [facility] Address [address] [place] [address] Care Team Providers Care Manager Garden Name Role Phone Susy Sylvester Primary Care Provider [phone] Allergies No known active allergies Medications meclizine [...] Description 10/09/2024 1:00 PM EDT Office Visit [facility] [address] [place] [id number] Cristhian Ruff DO Parkinson's disease, unspecified whether dyskinesia present, unspecified whether manifestations fluctuate (HCC) (Primary Dx) 10/09/2024 Refill [facility] [address] [place] [id number] Cristhian Ruff DO from Last 3 Months [...] Description 06/06/2025 3:00 PM EDT Office Visit [facility] [address] [place] [phone] Akua Maharaj MD [address] [place] [address] Health Maintenance Due Date Last Done [...] patient's age [id number] [facility] MEDICARE Care Teams Manager Garden Relationship Specialty Start Date End Date Susy Sylvester [address] [place] [address] [place] [id number] PCP - General Internal Medicine 06/14/23
== END 2024-12-18 10:16 | disposition home or self-care (01) ==
LOC: HO.HMCH 09:29
PROVIDERS: PCP Internal Medicine; Visit Provider Internal Medicine
DX: Z00.00 Encounter for general adult medical examination without abnormal findings (principal); F33.1 Major depressive disorder, recurrent, moderate; I50.9 Heart failure, unspecified; E11.9 Type 2 diabetes mellitus without complications; N18.31 Chronic kidney disease, stage 3a; G20.B2 Parkinson's disease with dyskinesia, with fluctuations; Z23 Encounter for immunization

== ENCOUNTER → 2024-12-18 09:28 | Outpatient (BNVA) | payer MEDICARE, MEDICAID, SELFPAY | PROVIDERS: PCP Internal Medicine; Visit Provider Internal Medicine | DX: Z00.00 Encounter for general adult medical examination without abnormal findings (principal); G20.A1 Parkinson's disease without dyskinesia, without mention of fluctuations; F03.90 Unspecified dementia, unspecified severity, without behavioral disturbance, psychotic disturbance, mood disturbance, and anxiety; E66.9 Obesity, unspecified; R42 Dizziness and giddiness; K59.00 Constipation, unspecified; K21.9 Gastro-esophageal reflux disease without esophagitis; G47.00 Insomnia, unspecified; I42.9 Cardiomyopathy, unspecified; R32 Unspecified urinary incontinence; F33.1 Major depressive disorder, recurrent, moderate; E11.22 Type 2 diabetes mellitus with diabetic chronic kidney disease; I13.0 Hypertensive heart and chronic kidney disease with heart failure and stage 1 through stage 4 chronic kidney disease, or unspecified chronic kidney disease; I50.9 Heart failure, unspecified; N18.31 Chronic kidney disease, stage 3a; G20.B2 Parkinson's disease with dyskinesia, with fluctuations; E78.5 Hyperlipidemia, unspecified; Z23 Encounter for immunization; Z68.33 Body mass index [BMI] 33.0-33.9, adult; Z79.899 Other long term (current) drug therapy; Z85.828 Personal history of other malignant neoplasm of skin | CPT/HCPCS: 90471; 90677; 96127 ==